=== PATIENT | male | born 1940 | race Caucasian/White ===

== ENCOUNTER 2016-04-06 07:37 | Emergency (ER) | payer BC ==
[~2016-04-06] VITALS: Ht 165.1 cm; Wt 74.6 kg
[~2016-04-06 07:37] MED LIST: [UNRECOGNIZED DRUG - CODE] PO
[2016-04-06 07:40] VITALS: TEMP 36.8
[2016-04-06] MEDS ORDERED: SODIUM CHLORIDE 0.9% 1000ML 1,000 ML IV STA (07:42)
[2016-04-06 07:50] VITALS: O2SAT 97
--- NOTE | 2016-04-06 07:54 | DIAGNOSTIC IMAGING REPORT ---
CHEST ONE VIEW PORTABLE CLINICAL HISTORY: Cough. Flu-like symptoms. COMPARISON STUDY: Chest radiograph October 05, 2014. FINDINGS: Bilateral shoulder arthroplasties and lumbar spine fusion hardware are partially imaged. No pneumothorax or pleural effusion is present. There is no evidence of pulmonary edema. Cardiomediastinal silhouette is stable. IMPRESSION: No acute cardiopulmonary findings. Electronically signed by: Augustine Anne M.D. 04/06/2016 7:52 AM Dictated Date/Time: 04/06/2016 7:50 AM
[2016-04-06 07:57] LABS: BASO % 0.1 %; BASO ABS # 0.01 K/uL (0-0.2); COMPLETE YES; EOS % 1.1 %; HEMATOCRIT 42.5 % (42-52); IG% 0.1 %; MEAN CELL VOLUME 87.1 fL (80-100); MEAN CORPUSCULAR HEMOGLOBIN 31.4 pg (25-34); MEAN PLATELET VOLUME 9.1 fL (7.4-10.4); MONO % 11.5 %; NEUT % 73.2 %; PLATELET COUNT 178 K/uL (130-400); RED BLOOD COUNT 4.88 M/uL (4.7-6.1); WHITE BLOOD COUNT 7.13 K/uL (4.8-10.8)
--- NOTE | 2016-04-06 08:03 | EMERGENCY ROOM VISIT NOTE ---
History Report prepared by Pauly: Rossi Saleh Under the Supervision of: Dr. Costa Sharma M.D. First contact with patient: 07:39 Chief Complaint: FALL Stated Complaint: FALL History of Present Illness The patient is a 75 year old male who presents to the Emergency Room via ALS with complaints of persistent neck pain secondary to fall occurring around 5 am this morning. When he went to the kitchen after waking up this morning, he lost consciousness and hit his head. He is unsure about how long he lost consciousness for. He took NyQuil and half of Vicodin before going to sleep last night. He normally takes Vicodin but has not taken NyQuil in the past few years. He has been having cold-like symptoms for the past few days. He currently complains of neck pain and upper back pain. He currently rates a pain intensity of 5/10. He has a history of chronic back pain which is currently worse than normal. The patient denies chest pain, shortness of breath, urinary symptoms, or any other complaints Source of History: patient Onset: around 5 am this morning Position: neck Symptom Intensity: 5/10 Timing: other (persistent) Associated Symptoms: + LOC, + back pain, No SOB, No chest pain, No urinary symptoms Review of Systems See HPI for pertinent positives & negatives. A total of 10 systems reviewed and were otherwise negative. Past Medical & Surgical Medical Problems: (1) BPH (benign prostatic hyperplasia) (2) Chronic back pain (3) HTN (hypertension) (4) Influenza A (5) Syncope Surgical Problems: (1) H/O shoulder replacement (2) Previous back surgery Family History No significant family history Social History Smoking Status: Never Smoker Drug Use: none Marital Status: Housing Status: lives with family Occupation Status: retired Current/Historical Medications Scheduled Aspirin (Aspirin Ec), 81 MG PO QAM Atorvastatin (Lipitor), 20 MG PO HS Calcium Carbonate-Vitamin D (Calcium 600 + D), 1 TAB PO QAM Coenzyme Q10 (Ubidecarenone) (Co Q-10), 1 CAP PO QAM Finasteride (Proscar), 5 MG PO QAM Gabapentin (Neurontin), 300 MG PO BID Hydrochlorothiazide (Hydrochlorothiazide), 25 MG PO DAILY Losartan Potassium (Cozaar), 100 MG PO QAM Metoprolol Succ (Toprol Xl) (Toprol-Xl), 25 MG PO DAILY Multiple Vitamin (Multivitamin), 1 TAB PO QAM Jenners-3 Fatty Acids (Fish Oil), 1 CAP PO QAM Omeprazole (Prilosec), 20 MG PO QAM Oseltamivir Phosphate (Tamiflu), 1 CAP PO BID Scheduled PRN Hydrocodone/Acetaminophen 5MG/325MG (Pyote 5MG/325MG), 1 TABLET PO Q4 PRN for Pain Allergies Coded Allergies: Doxazosin (Verified Allergy, Mild, 04/06/16) Oxaprozin (Verified Allergy, Unknown, 04/06/16) Terazosin (Verified Adverse Reaction, Mild, nervousness, 04/06/16) Physical Exam Vital Signs Date Time Temp Pulse Resp B/P Pulse Ox O2 Delivery O2 Flow Rate FiO2 04/06/16 13:47 70 18 124/76 96 Room Air 04/06/16 12:03 71 18 137/87 95 Room Air 04/06/16 11:05 93 Room Air 04/06/16 10:35 72 18 109/68 93 Room Air 04/06/16 09:52 74 20 132/76 93 Room Air 04/06/16 08:59 71 04/06/16 08:34 75 22 156/85 94 Room Air 04/06/16 07:50 97 Room Air 04/06/16 07:47 96 Room Air 04/06/16 07:47 96 Room Air 04/06/16 07:40 36.8 72 18 126/83 96 Room Air Physical Exam GENERAL: Patient is a healthy-appearing well-nourished HEAD: Normocephalic atraumatic EYES: Ocular movements intact pupils equal and react to light OROPHARYNX mucous membranes are moist no exudates present no erythema or edema present NECK: Supple no nuchal rigidity. Cervical collar in place. CHEST: Good equal expansion LUNGS: Clear and equal to auscultation CARDIAC: Normal S1 and S2 ABDOMEN: Soft nontender no guarding BACK: Tender to C3 region. EXTREMITIES: No pain upon palpation normal muscle strength in all groups no clubbing cyanosis or edema NEURO: Patient is following commands is answering questions appropriately. Alert and oriented x3 Cranial Nerves 2-12 grossly intact Medical Decision & Procedures ER Provider Diagnostic Interpretation: X-ray results as stated below per my interpretation and radiologist interpretation. CT results as stated below per my review and radiologist interpretation: CT OF THE CERVICAL SPINE CLINICAL HISTORY: Neck pain status post trauma COMPARISON STUDY: No previous studies for comparison. CT DOSE: 3195.89 mGy.cm TECHNIQUE: CT scan of the cervical spine was performed from the skull base to the thoracic inlet. Images are reviewed in the axial, sagittal, and coronal planes. IV contrast was not administered for this examination. FINDINGS: The visualized portions of the lung apices reveal no evidence of pneumothorax. The prevertebral soft tissues are normal. No fractures or traumatic subluxations are visualized. There is a small triangular bone fragment at the level of the tip of the odontoid. This is likely chronic. There are advanced multilevel degenerative changes. The bones are osteopenic. There are scattered lytic foci, the most prominent of which measures 6 mm and is located at the C2 level of the right of midline. IMPRESSION: 1. No evidence of acute fracture or traumatic subluxation 2. Moderately advanced multilevel degenerative changes 3. 2.5 mm of anterior subluxation of C4 on C5, likely degenerative 4. Scattered nonspecific lytic foci. Electronically signed by: Lcai Chandra M.D. 04/06/2016 8:32 AM Dictated Date/Time: 04/06/2016 8:27 AM CHEST ONE VIEW PORTABLE CLINICAL HISTORY: Cough. Flu-like symptoms. COMPARISON STUDY: Chest radiograph October 05, 2014. FINDINGS: Bilateral shoulder arthroplasties and lumbar spine fusion hardware are partially imaged. No pneumothorax or pleural effusion is present. There is no evidence of pulmonary edema. Cardiomediastinal silhouette is stable. IMPRESSION: No acute cardiopulmonary findings. Electronically signed by: Augustine Anne M.D. 04/06/2016 7:52 AM Dictated Date/Time: 04/06/2016 7:[address] OF THE HEAD WITHOUT CONTRAST CLINICAL HISTORY: Syncopal episode with fall. COMPARISON STUDY: Head CT October 05, 2014. TECHNIQUE: Helical axial images of the head were obtained without IV contrast. Automated exposure control was utilized for the study. FINDINGS: No acute intracranial hemorrhage, midline shift or mass effect is present. Ventricular system is stable. The basilar cisterns are patent. There are no extra-axial collections. Mild white matter hypodensity suggests small vessel disease. There are no findings to suggest acute dural sinus thrombosis or acute territorial infarct. There is no calvarial fracture. There is mild mucosal thickening of the ethmoid sinuses. IMPRESSION: 1. No acute intracranial findings. 2. No calvarial fracture. Electronically signed by: Augustine Anne M.D. 04/06/2016 8:30 AM Dictated Date/Time: 04/06/2016 8:[address] LUMBAR SPINE WITHOUT CLINICAL HISTORY: Back pain following fall. TECHNIQUE: Axial images lumbar spine were obtained without IV contrast. Sagittal and coronal reconstructions were viewed. COMPARISON STUDY: Lumbar spine radiograph July 06, 2010. FINDINGS: For purposes of numbering on this exam, the L5-S1 disc space is assigned to axial image 339 of 495. There is mild retrolisthesis of L3 on L4 and mild anterolisthesis of L4 and L5. There are bilateral pedicle screws at the L1, L2 and L3 levels. There is a discectomy with interbody spacer placement the L3-L4 and L5-S1 levels. An erosive appearance at the L3-L4 level with mild loss of height of the inferior endplate of L3 and moderate loss of height of the superior endplate of L4 is chronic. This was shown on prior radiographs. There is no acute fracture. The central canal and neural foramen are suboptimally assessed by CT. Paravertebral soft tissues are unremarkable. A 2.1 cm low-attenuation left adrenal nodule is unchanged and likely reflects an adenoma. There is a suspected left renal cyst. IMPRESSION: 1. No acute lumbar spine fracture or subluxation. 2. Multilevel discectomy and fusion within the lumbosacral spine line, as described above. An erosive appearance centered at the L3-L4 disc space is chronic. Electronically signed by: Augustine Anne M.D. 04/06/2016 8:41 AM Dictated Date/Time: 04/06/2016 8:[address] THOR[address]IC SPINE WITHOUT CT DOSE: CLINICAL HISTORY: Thoracic spine pain status post trauma TECHNIQUE: Helical images were acquired in the transverse plane. Sagittal and coronal reformatted images were acquired COMPARISON STUDY: None. FINDINGS: No paraspinal hematoma is visualized. No pleural effusions are visualized. There are dependent atelectatic changes within the lungs. There is interstitial thickening. No pneumothorax is visualized. There are postsurgical changes within the lumbar spine. There are multilevel degenerative changes present. No acute fractures or traumatic subluxations are visualized. There is endplate irregularity at the T6-7 and T7-T8 levels, likely discogenic degenerative basis. IMPRESSION: No acute fractures or subluxations identified. Electronically signed by: Laci Chandra M.D. 04/06/2016 8:35 AM Dictated Date/Time: 04/06/2016 8:32 AM Laboratory Results 04/06/16 07:45 Red Blood Count 4.88, Mean Corpuscular Volume 87.1, Mean Corpuscular Hemoglobin 31.4, Mean Corpuscular Hemoglobin Concent 36.0, Mean Platelet Volume 9.1, Neutrophils (%) (Auto) 73.2, Lymphocytes (%) (Auto) 14.0, Monocytes (%) (Auto) 11.5, Eosinophils (%) (Auto) 1.1, Basophils (%) (Auto) 0.1, Neutrophils # (Auto ) 5.21, Lymphocytes # (Auto) 1.00, Monocytes # (Auto) 0.82, Eosinophils # (Auto ) 0.08, Basophils # (Auto) 0.01 04/06/16 07:45 Test 04/06/16 06:45 04/06/16 07:45 04/06/16 07:49 04/06/16 07:50 Urine Color DK YELLOW Urine Appearance CLEAR (CLEAR) Urine pH 5.0 (4.5-7.5) Urine Specific [place] 1.026 (1.000-1.030) Urine Protein NEG (NEG) Urine Glucose (UA) NEG (NEG) Urine Ketones NEG (NEG) Urine Occult Blood NEG (NEG) Urine Nitrite NEG (NEG) Urine Bilirubin NEG (NEG) Urine Urobilinogen NEG (NEG) Urine Leukocyte Esterase NEG (NEG) White Blood Count 7.13 K/uL (4.8-10.8) Red Blood Count 4.88 M/uL (4.7-6.1) Hemoglobin 15.3 g/dL (14.0-18.0) Hematocrit 42.5 % (42-52) Mean Corpuscular Volume 87.1 fL (80-100) Mean Corpuscular Hemoglobin 31.4 pg (25-34) Mean Corpuscular Hemoglobin Concent 36.0 g/dl (32-36) Platelet Count 178 K/uL (130-400) Mean Platelet Volume 9.1 fL (7.4-10.4) Neutrophils (%) (Auto) 73.2 % Lymphocytes (%) (Auto) 14.0 % Monocytes (%) (Auto) 11.5 % Eosinophils (%) (Auto) 1.1 % Basophils (%) (Auto) 0.1 % Neutrophils # (Auto) 5.21 K/uL (1.4-6.5) Lymphocytes # (Auto) 1.00 K/uL (1.2-3.4) Monocytes # (Auto) 0.82 K/uL (0.11-0.59) Eosinophils # (Auto) 0.08 K/uL (0-0.5) Basophils # (Auto) 0.01 K/uL (0-0.2) RDW Standard Deviation 41.4 fL (36.4-46.3) RDW Coefficient of Variation 13.0 % (11.5-14.5) Immature Granulocyte % (Auto) 0.1 % Immature Granulocyte # (Auto) 0.01 K/uL (0.00-0.02) Anion Gap 10.0 mmol/L (3-11) Est Creatinine Clear Calc Drug Dose 40.2 ml/min Estimated GFR () 52.0 Estimated GFR (Non- 44.9 BUN/Creatinine Ratio 13.5 (10-20) Calcium Level 8.6 mg/dl (8.5-10.1) Total Bilirubin 0.6 mg/dl (0.2-1) Direct Bilirubin 0.1 mg/dl (0-0.2) Aspartate Amino Transf (AST/SGOT) 41 U/L (15-37) Alanine Aminotransferase (ALT/SGPT) 43 U/L (12-78) Alkaline Phosphatase 104 U/L (45-117) Total Protein 6.4 gm/dl (6.4-8.2) Albumin 3.3 gm/dl (3.4-5.0) Influenza Type A (RT-PCR) POS for Influ A (NEG) Influenza Type B (RT-PCR) Neg for Influ B (NEG) Bedside Glucose 75 mg/dl (70-99) Labs reviewed by ED physician. Medications Administered Medications (Trade) Dose Ordered Sig/Avery Route Start Time Stop Time Status Last Admin Dose Admin Sodium Chloride (Nss 1000ml) 1,000 ml @ 999 mls/hr Q1H1M STAT IV 04/06/16 07:42 04/06/16 08:42 DC 04/06/16 07:53 999 MLS/HR Hydromorphone HCl (Dilaudid Inj) 1 mg NOW STAT IV 04/06/16 08:40 04/06/16 08:42 DC 04/06/16 08:44 1 MG Ondansetron HCl (Zofran Inj) 4 mg NOW STAT IV 04/06/16 08:40 04/06/16 08:42 DC 04/06/16 08:44 4 MG Oseltamivir Phosphate (Tamiflu Cap) 75 mg NOW STAT PO 04/06/16 10:05 04/06/16 10:06 DC 04/06/16 10:33 75 MG ECG Indication: syncope Rate (beats per minute): 69 Rhythm: normal sinus Findings: no acute ischemic change, no ectopy ED Course 0739: Past medical records reviewed. The patient was evaluated in room . A complete history and physical examination was performed. 0742: Sodium Chloride 1000 ml @ 999 mls/hr IV 0840: Zofran Inj 4 mg IV, Dilaudid Inj 1 mg IV 1005: Tamiflu Cap 75 mg PO 1013: He had a near syncopal event in the Emergency Room when he tried performing an ambulatory trial. Upon reexamination the patient is resting comfortably. I discussed results and treatment plan with the patient. He verbalizes agreement and understanding. 1015: [facility] The patient will be evaluated for further management. Medical Decision Differential diagnosis: Etiologies such as viral syndrome, otitis, pharyngitis, pneumonia, influenza, meningitis, urinary tract infection, sepsis, bacteremia, as well as others were entertained. This is a 75-year-old male who presents emergency Department with a fall and what appears to be a vasovagal episode at home. He arrives complaining of neck pain as well as lower back pain. The patient has had cough and cold symptoms for the past day. His influenza swab is positive however the CAT scan of his head neck and spine are normal. While the patient was waiting for the doctor in emergency department he did have a vasovagal episode. Based on the fact that the patient has had 2 vasovagal episodes today I did discuss the case with the hospitalist service who agreed to admit the patient. Patient and family were in agreement with the treatment plan. Consults Time Called: 1014 Consulting Physician: [facility] Returned Call: [address] [facility] Impression Primary Impression: Influenza Additional Impression: Multiple falls Scribe Attestation The scribe's documentation has been prepared under my direction and personally reviewed by me in its entirety. I confirm that the note above accurately reflects all work, treatment, procedures, and medical decision making performed by me. Departure Information Dispostion Being Evaluated By Hospitalist Prescriptions Oseltamivir Phosphate (TAMIFLU) 30 Mg Cap 1 CAP PO BID for 5 Days, #10 CAP Prov: Costa Alcaraz MD 04/06/16 Referrals Griffin Meraz M.D. (PCP) Patient Instructions [facility] Problem Qualifiers
[2016-04-06 08:23] LABS: BUN/CREATININE RATIO 13.5 (10-20); CALCIUM 8.6 mg/dl (8.5-10.1); CREATININE 1.5 mg/dl (0.60-1.40); POTASSIUM 3.8 mmol/L (3.5-5.1)
--- NOTE | 2016-04-06 08:32 | DIAGNOSTIC IMAGING REPORT ---
CT OF THE HEAD WITHOUT CONTRAST CLINICAL HISTORY: Syncopal episode with fall. COMPARISON STUDY: Head CT October 05, 2014. TECHNIQUE: Helical axial images of the head were obtained without IV contrast. Automated exposure control was utilized for the study. FINDINGS: No acute intracranial hemorrhage, midline shift or mass effect is present. Ventricular system is stable. The basilar cisterns are patent. There are no extra-axial collections. Mild white matter hypodensity suggests small vessel disease. There are no findings to suggest acute dural sinus thrombosis or acute territorial infarct. There is no calvarial fracture. There is mild mucosal thickening of the ethmoid sinuses. IMPRESSION: 1. No acute intracranial findings. 2. No calvarial fracture. Electronically signed by: Augustine Anne M.D. 04/06/2016 8:30 AM Dictated Date/Time: 04/06/2016 8:28 AM
--- NOTE | 2016-04-06 08:33 | DIAGNOSTIC IMAGING REPORT ---
CT OF THE CERVICAL SPINE CLINICAL HISTORY: Neck pain status post trauma COMPARISON STUDY: No previous studies for comparison. CT DOSE: 3195.89 mGy.cm TECHNIQUE: CT scan of the cervical spine was performed from the skull base to the thoracic inlet. Images are reviewed in the axial, sagittal, and coronal planes. IV contrast was not administered for this examination. FINDINGS: The visualized portions of the lung apices reveal no evidence of pneumothorax. The prevertebral soft tissues are normal. No fractures or traumatic subluxations are visualized. There is a small triangular bone fragment at the level of the tip of the odontoid. This is likely chronic. There are advanced multilevel degenerative changes. The bones are osteopenic. There are scattered lytic foci, the most prominent of which measures 6 mm and is located at the C2 level of the right of midline. IMPRESSION: 1. No evidence of acute fracture or traumatic subluxation 2. Moderately advanced multilevel degenerative changes 3. 2.5 mm of anterior subluxation of C4 on C5, likely degenerative 4. Scattered nonspecific lytic foci. Electronically signed by: Laci Chandra M.D. 04/06/2016 8:32 AM Dictated Date/Time: 04/06/2016 8:27 AM
--- NOTE | 2016-04-06 08:37 | DIAGNOSTIC IMAGING REPORT ---
CT THORACIC SPINE WITHOUT CT DOSE: CLINICAL HISTORY: Thoracic spine pain status post trauma TECHNIQUE: Helical images were acquired in the transverse plane. Sagittal and coronal reformatted images were acquired COMPARISON STUDY: None. FINDINGS: No paraspinal hematoma is visualized. No pleural effusions are visualized. There are dependent atelectatic changes within the lungs. There is interstitial thickening. No pneumothorax is visualized. There are postsurgical changes within the lumbar spine. There are multilevel degenerative changes present. No acute fractures or traumatic subluxations are visualized. There is endplate irregularity at the T6-7 and T7-T8 levels, likely discogenic degenerative basis. IMPRESSION: No acute fractures or subluxations identified. Electronically signed by: Laci Chandra M.D. 04/06/2016 8:35 AM Dictated Date/Time: 04/06/2016 8:32 AM
[2016-04-06] MEDS ORDERED: HYDROmorphone INJ 1 MG/ML SYR IV STA (08:40)
[2016-04-06] MEDS ORDERED: ONDANSETRON INJ 2 MG/ML 2 ML VIAL IV STA (08:40)
--- NOTE | 2016-04-06 08:43 | DIAGNOSTIC IMAGING REPORT ---
CT LUMBAR SPINE WITHOUT CLINICAL HISTORY: Back pain following fall. TECHNIQUE: Axial images lumbar spine were obtained without IV contrast. Sagittal and coronal reconstructions were viewed. COMPARISON STUDY: Lumbar spine radiograph July 06, 2010. FINDINGS: For purposes of numbering on this exam, the L5-S1 disc space is assigned to axial image 339 of 495. There is mild retrolisthesis of L3 on L4 and mild anterolisthesis of L4 and L5. There are bilateral pedicle screws at the L1, L2 and L3 levels. There is a discectomy with interbody spacer placement the L3-L4 and L5-S1 levels. An erosive appearance at the L3-L4 level with mild loss of height of the inferior endplate of L3 and moderate loss of height of the superior endplate of L4 is chronic. This was shown on prior radiographs. There is no acute fracture. The central canal and neural foramen are suboptimally assessed by CT. Paravertebral soft tissues are unremarkable. A 2.1 cm low-attenuation left adrenal nodule is unchanged and likely reflects an adenoma. There is a suspected left renal cyst. IMPRESSION: 1. No acute lumbar spine fracture or subluxation. 2. Multilevel discectomy and fusion within the lumbosacral spine line, as described above. An erosive appearance centered at the L3-L4 disc space is chronic. Electronically signed by: Augustine Anne M.D. 04/06/2016 8:41 AM Dictated Date/Time: 04/06/2016 8:32 AM
[2016-04-06 09:59] LABS: INFLUENZA A PCR POS for Influ A (NEG); INFLUENZA B PCR Neg for Influ B (NEG)
[2016-04-06] MEDS ORDERED: OSELTAMIVIR PHOSPHATE 75 MG CAP PO STA (10:05)
[2016-04-06 10:22] LABS: URINE APPEARANCE CLEAR (CLEAR); URINE BILIRUBIN NEG (NEG); URINE COLOR DK YELLOW; URINE NITRITE NEG (NEG); URINE SPECIFIC GRAVITY 1.026 (1.000-1.030); UROBILINOGEN NEG (NEG)
[2016-04-06 10:24] LABS: MANUAL MICROSCOPIC REQUIRED? NO; REVIEW REQ? NO
[2016-04-06 11:05] VITALS: O2SAT 93; Ht 165.1 cm; Wt 74.6 kg
[2016-04-06] MEDS ORDERED: SODIUM CHLORIDE 0.9% 1000ML 1,000 ML IV SCH (12:02)
[2016-04-06] MEDS ORDERED: ACETAMINOPHEN 325 MG TAB PO PRN (12:15)
[2016-04-06] MEDS ORDERED: ONDANSETRON INJ 2 MG/ML 2 ML VIAL IV PRN (12:15)
[2016-04-06] MEDS ORDERED: POLYETHYLENE (MIRALAX) 17 GM PACK PO PRN (12:15)
[2016-04-06] MEDS ORDERED: HYDROCODONE/ACETAMOPHEN 5/325MG TAB PO PRN (12:15)
--- NOTE | 2016-04-06 13:08 | HISTORY & PHYSICAL EXAMINATION ---
DATE OF ADMISSION: 04/06/2016 CHIEF COMPLAINT: Syncope. HISTORY OF PRESENT ILLNESS: Mr. Wiggins is a 75-year-old gentleman with a history of hypertension, dyslipidemia and chronic back pain related to arthritis with multiple previous spinal fusions. He is presenting to the Emergency Department after having a syncopal episode this morning. He tells me over the past couple days he felt that he thought he was getting as cold. He had somewhat of a sore throat really just was not feeling himself. He said he was sneezing a lot. Denies any rhinorrhea, denies any cough or shortness of breath. Denies any chest pain, abdominal pain, nausea, vomiting or diarrhea. Denies any dysuria, hematuria or increased urinary frequency. Denies any swollen or painful joints and he denies any rash. His initial workup in the Emergency Department included a CT scan of the head, cervical spine, lumbar spine and thoracic spine. His CT of the head showed chronic small vessel ischemic changes, but otherwise no acute findings. His CT of the cervical spine showed advanced multilevel degenerative changes with osteopenic bones and some scattered lytic foci that the radiologist is reading as nonspecific. Also reading a 2.5 mm inferior subluxation of C4 over C5 which she says is likely degenerative. A CT of the thoracic spine is read as showing no acute fractures or subluxations. His CT of the lumbar spine shows no acute fracture or subluxation. Note is made of multilevel discectomy and fusion consistent with his history of previous fusions. He also had a chest x-ray which shows no acute cardiopulmonary process. His initial set of labs include chemistries showing a sodium of 144, potassium 3.8, chloride 105, bicarbonate 29, BUN is 20, creatinine is 1.5. He does have a history of CKD 3 and this is approximately his baseline creatinine. Glucose was 88, calcium 8.6, AST 41, ALT 43, bilirubin 0.6, alkaline phosphatase 104, albumin was a little bit low at 3.3, protein 6.4. His CBC showed a white blood cell count of 7100 with a normal differential. Hemoglobin was 15.3, hematocrit 42.5 and platelets 178,000. Urinalysis showed dark yellow urine, had a high specific gravity of 1.026, but was otherwise unremarkable. PCR for influenza A was positive. At this point, the patient was started on IV fluid hydration as well as Tamiflu and at this point is being admitted for further workup and management. ALLERGIES: 1. DOXAZOSIN. 2. OXAPROZIN. 3. TERAZOSIN. PAST MEDICAL HISTORY: 1. Hypertension related to chronic kidney disease. 2. Chronic kidney disease 3. 3. 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 4. BPH. 5. Dyslipidemia. HOME MEDICATIONS: Include: 1. [place] 5/325, which he says he takes 1 tab p.o. usually only once a day in the evening. 2. Aspirin 81 mg p.o. daily. 3. Atorvastatin 20 mg p.o. at bedtime. 4. Calcium with vitamin D. 5. Coenzyme Q10. 6. Finasteride 5 mg p.o. daily. 7. Gabapentin 300 mg p.o., says he takes either once or twice a day. 8. Hydrochlorothiazide 25 mg p.o. daily. 9. Losartan 100 mg p.o. daily. 10. Toprol-XL 25 mg p.o. daily. 11. Multivitamin. 12. [place] 3 fatty acid capsules. 13. Omeprazole 20 mg p.o. daily. FAMILY HISTORY: Positive for premature coronary artery disease. His father of an NC at age 48. Multiple other family members on his father's side with CAD. His mother's side of the family he mentions is very healthy and multiple family members lived well into their 90s and even 100s. SOCIAL HISTORY: The patient lives at home with his . He is completely independent. 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 He is a lifelong nonsmoker and does not abuse alcohol or illicit drugs. REVIEW OF SYSTEMS: A 14 system review was conducted and was found to be completely negative except as otherwise indicated above in the history of present illness. PHYSICAL EXAMINATION: VITAL SIGNS: Currently show pulse 70, respiratory rate 18, oxygen saturation 95% on room air, blood pressure 137/87. GENERAL: The patient is awake, alert and oriented. He is in no acute distress. HEAD, EYES, EARS, NOSE, AND THROAT: The sclerae are nonicteric. The mucous membranes are tacky. NECK: The trachea is midline. There is no JVD. RESPIRATORY: The lungs are grossly clear with fair air entry bilaterally. He is not in any respiratory distress. CARDIOVASCULAR EXAMINATION: S1 and S2 heard with a regular rate and rhythm. There is no murmur, rub, or gallop. ABDOMEN: Soft, nontender, nondistended. Bowel sounds are present. EXTREMITIES: Warm and well perfused without edema. SKIN: warm and dry. There is no cyanosis or rash. MUSCULOSKELETAL: There is no chest wall tenderness. There are no obvious joint effusions or joint tenderness. He does have mild pain on active range of motion of the cervical as well as lumbar spine which he says is chronic. NEUROLOGIC: The patient is awake and alert. There are no obvious focal deficit. Gait was not assessed. PSYCHIATRIC: The patient is calm and cooperative. He exhibits a normal mood and affect. DIAGNOSTIC INVESTIGATIONS: Labs and imaging were reviewed as outlined above in the history of present illness. In addition, an EKG was performed which shows sinus rhythm with a rate of 70 beats per minute. There is some flattening of the T-waves in lead 3, otherwise there are no ST segment or T-wave changes suggestive of acute ischemia. He has tiny Q-waves in III and aVF which are not present on an EKG from September 2014, but appear to be chronic. ASSESSMENT AND PLAN: 1. Syncope, likely related either to taking pain medication along with the antihistamine in [place], could also be related to hypovolemia. At this point, we will keep him on a heart monitor to screen for arrhythmia. Will gently rehydrate the patient. Will check orthostatics. 2. Influenza A infection. The patient has already been started on Tamiflu, which will be continued for a total of 5 days. Will decrease the dose to 30 mg b.i.d. based on his decreased creatinine clearance. 3. Hypertension. This is optimally controlled on his current home antihypertensive regimen. I will be holding hydrochlorothiazide while we rehydrate him. This will be restarted at discharge. For the time being we will continue losartan and the metoprolol. 4. Benign prostatic hypertrophy. He reports that he is voiding without difficulty. We will continue him on his usual finasteride. 5. Dyslipidemia. We will continue the patient on Lipitor. 6. Chronic back pain. We will continue his home [place] while he is here. 7. Deep venous thrombosis prophylaxis with SCDs. 8. Disposition: Admit to the general medical surgical floor. Total time spent preparing this history and physical is [address] [facility]
[2016-04-06] MEDS ORDERED: OSEL30CA PO (13:13)
--- NOTE | 2016-04-06 13:20 | Discharge Instructions ---
Discharge Instructions Admission Reason for Admission: FALL Discharge Discharge Diagnosis / Problem: Syncope, Influenza A infection Discharge Goals Goal(s): Improve function, Improve disease control Activity Recommendations Activity Limitations: resume your previous activity . Instructions / Follow-Up Instructions / Follow-Up Make appointment to be seen by PCP within next 1 week. Current Hospital Diet Patient's current hospital diet: AHA Diet (Heart Healthy) Discharge Diet Recommended Diet: AHA Diet (Heart Healthy) Pending Studies Studies pending at discharge: yes List of pending studies: Urine culture Laboratory Results Last 24 Hours Test 04/06/16 06:45 04/06/16 07:45 04/06/16 07:49 04/06/16 07:50 Urine Color DK YELLOW Urine Appearance CLEAR Urine pH 5.0 Urine Specific [place] 1.026 Urine Protein NEG Urine Glucose (UA) NEG Urine Ketones NEG Urine Occult Blood NEG Urine Nitrite NEG Urine Bilirubin NEG Urine Urobilinogen NEG Urine Leukocyte Esterase NEG White Blood Count 7.13 K/uL Red Blood Count 4.88 M/uL Hemoglobin 15.3 g/dL Hematocrit 42.5 % Mean Corpuscular Volume 87.1 fL Mean Corpuscular Hemoglobin 31.4 pg Mean Corpuscular Hemoglobin Concent 36.0 g/dl Platelet Count 178 K/uL Mean Platelet Volume 9.1 fL Neutrophils (%) (Auto) 73.2 % Lymphocytes (%) (Auto) 14.0 % Monocytes (%) (Auto) 11.5 % Eosinophils (%) (Auto) 1.1 % Basophils (%) (Auto) 0.1 % Neutrophils # (Auto) 5.21 K/uL Lymphocytes # (Auto) 1.00 K/uL Monocytes # (Auto) 0.82 K/uL Eosinophils # (Auto) 0.08 K/uL Basophils # (Auto) 0.01 K/uL RDW Standard Deviation 41.4 fL RDW Coefficient of Variation 13.0 % Immature Granulocyte % (Auto) 0.1 % Immature Granulocyte # (Auto) 0.01 K/uL Sodium Level 144 mmol/L Potassium Level 3.8 mmol/L Chloride Level 105 mmol/L Carbon Dioxide Level 29 mmol/L Anion Gap 10.0 mmol/L Blood Urea Nitrogen 20 mg/dl Creatinine 1.50 mg/dl Est Creatinine Clear Calc Drug Dose 40.2 ml/min Estimated GFR () 52.0 Estimated GFR (Non- 44.9 BUN/Creatinine Ratio 13.5 Random Glucose 88 mg/dl Calcium Level 8.6 mg/dl Total Bilirubin 0.6 mg/dl Direct Bilirubin 0.1 mg/dl Aspartate Amino Transf (AST/SGOT) 41 U/L Alanine Aminotransferase (ALT/SGPT) 43 U/L Alkaline Phosphatase 104 U/L Total Protein 6.4 gm/dl Albumin 3.3 gm/dl Influenza Type A (RT-PCR) POS for Influ A Influenza Type B (RT-PCR) Neg for Influ B Bedside Glucose 75 mg/dl Medical Emergencies . Who to Call and When: Medical Emergencies: If at any time you feel your situation is an emergency, please call 911 immediately. . Non-Emergent Contact Non-Emergency issues call your: Primary Care Provider Call Non-Emergent contact if: you have a fever, you have any medication questions . Past History Medical & Surgical History: (1) Syncope (2) Influenza A (3) HTN (hypertension) (4) BPH (benign prostatic hyperplasia) (5) Chronic back pain . "Provider Documentation" section prepared by Costa Alcaraz. VTE Core Measure Inpt VTE Proph given/why not?: SCD's
[2016-04-06 13:47] VITALS: BP 124/76; PULSE 70; O2SAT 96
--- NOTE | 2016-04-06 14:51 | Discharge Summary ---
Discharge Summary Admission Date: Apr 06, 2016 Discharge Date: Apr 06, 2016 Discharge Disposition: Home Principal Diagnosis: Influenza A infection Problems/Secondary Diagnoses: Syncope Immunizations: Have You Had Influenza Vaccine: Unknown History of Tetanus Vaccine?: Unknown History of Pneumococcal: Unknown History of Hepatitis B Vaccine: Unknown Medication Reconciliation New Medications: Oseltamivir Phosphate (Tamiflu) 30 Mg Cap 1 CAP PO BID for 5 Days, #10 CAP Continued Medications: Aspirin (Aspirin Ec) 81 Mg Tab 81 MG PO QAM Atorvastatin (Lipitor) 20 Mg Tab 20 MG PO HS, TAB Calcium Carbonate-Vitamin D (Calcium 600 + D) 1 Tab Tab 1 TAB PO QAM Coenzyme Q10 (Ubidecarenone) (Co Q-10) 400 Mg Cap 1 CAP PO QAM Finasteride (Proscar) 5 Mg Tab 5 MG PO QAM, TAB Gabapentin (Neurontin) 300 Mg Cap 300 MG PO BID, CAP Hydrochlorothiazide (Hydrochlorothiazide) 25 Mg Tab 25 MG PO DAILY Hydrocodone/Acetaminophen 5MG/325MG ([place] 5MG/325MG) Tab 1 TABLET PO Q4 PRN for Pain, TAB PRN PAIN Losartan Potassium (Cozaar) 100 Mg Tab 100 MG PO QAM, TAB Metoprolol Succ (Toprol Xl) (Toprol-Xl) 25 Mg Tabcr 25 MG PO DAILY, #30 TAB Multiple Vitamin (Multivitamin) 1 Tab Tab 1 TAB PO QAM for 90 Days, #90 TAB 3 Refills [place]-3 Fatty Acids (Fish Oil) 1 Cap Cap 1 CAP PO QAM Omeprazole (Prilosec) 20 Mg Capcr 20 MG PO QAM, CAP Discharge Exam PHYSICAL EXAMINATION: VITAL SIGNS: Currently show pulse 70, respiratory rate 18, oxygen saturation 95% on room air, blood pressure 137/87. GENERAL: The patient is awake, alert and oriented. He is in no acute distress. HEAD, EYES, EARS, NOSE, AND THROAT: The sclerae are nonicteric. The mucous membranes are tacky. NECK: The trachea is midline. There is no JVD. RESPIRATORY: The lungs are grossly clear with fair air entry bilaterally. He is not in any respiratory distress. CARDIOVASCULAR EXAMINATION: S1 and S2 heard with a regular rate and rhythm. There is no murmur, rub, or gallop. ABDOMEN: Soft, nontender, nondistended. Bowel sounds are present. EXTREMITIES: Warm and well perfused without edema. SKIN: warm and dry. There is no cyanosis or rash. MUSCULOSKELETAL: There is no chest wall tenderness. There are no obvious joint effusions or joint tenderness. He does have mild pain on active range of motion of the cervical as well as lumbar spine which he says is chronic. NEUROLOGIC: The patient is awake and alert. There are no obvious focal deficit. Gait was not assessed. PSYCHIATRIC: The patient is calm and cooperative. He exhibits a normal mood and affect. Hospital Course Mr. Wiggins presented to the ED after having a syncopal episode at home. He had been complaining of viral upper respiratory tract infection symptoms for a few days preceeding the syncopal event. He reports taking NyQuil in addition to his [place] the previous night. He reports waking up early in the morning to use the bathroom and having a syncopal episode on his return to the bedroom. His initial work up was significant for positivity for influenza A. His chemistries showed a creatinine elevated at 1.5, though this appears to be similar to previous values in our records. CXR, CT head, CT C/T/LS spine showed no acute findings. EKG did not appear to show any acute abnormality. At this point, he was started on Tamiflu, given IV fluids, and was recommended admission for work up of his syncope. I discussed with him that his symptoms could possibly be due to cardiac arrhythmia, but he declines admission at this time. He was, therefore, discharged home from the ED in stable condition. I asked him to follow up with his PCP within a week. He was also given a script for a 5 day course of renally-dosed Tamiflu. Total Time Spent: Greater than 30 minutes This includes examination of the patient, discharge planning, medication reconciliation, and communication with other providers. Discharge Instructions Please refer to the electronic Patient Visit Report (Discharge Instructions) for additional information. Follow-Up Follow up with PCP within one week. Additional Copies To Griffin Meraz M.D.
[2016-04-06] MEDS ORDERED: IV FLUIDS COMPLETED PRN (15:30)
[2016-04-06] MEDS ORDERED: OSELTAMIVIR PHOSPHATE 75 MG CAP PO SCH (21:00)
[2016-04-06] MEDS ORDERED: ATORVASTATIN 20 MG TAB PO SCH (21:00)
[2016-04-06] MEDS ORDERED: GABAPENTIN 300 MG CAP PO SCH (21:00)
[2016-04-07] MEDS ORDERED: MULTIVITAMIN TAB PO SCH (09:00)
[2016-04-07] MEDS ORDERED: FINASTERIDE 5 MG TAB PO SCH (09:00)
[2016-04-07] MEDS ORDERED: ASPIRIN 81 MG ECTAB PO SCH (09:00)
[2016-04-07] MEDS ORDERED: METOPROLOL SUCC 25MG EXT REL TAB PO SCH (09:00)
[2016-04-07] MEDS ORDERED: PANTOprazole SOD 40 MG TAB PO SCH (09:00)
[2016-04-07] MEDS ORDERED: LOSARTAN POTASSIUM 50 MG TAB PO SCH (09:00)
[2016-04-07] MEDS ORDERED: NON-FORMULARY MEDICATION (Coenzyme Q10 (Ubidecarenone) (Co Q-10) 1 CAP) PO SCH (09:00)
[2016-04-07] MEDS ORDERED: CALCIUM 600MG + VIT D 400 IU TAB PO SCH (09:00)
[2016-04-07] MEDS ORDERED: OMEGA-3 (PURIFIED FISH OIL) 1 GM CAP PO SCH (09:00)
[2016-04-15] MEDS ORDERED: HYDR25TA5 PO (08:51)
[2016-04-15] MEDS ORDERED: METO25TA3 PO (08:51)
[2016-04-15] MEDS ORDERED: OMEP20CA59 PO (13:51)
[2016-04-15] MEDS ORDERED: OMEG7.5C PO (13:51)
[2016-04-15] MEDS ORDERED: ASPI81TA28 PO (13:51)
[2016-04-15] MEDS ORDERED: LOSA100T65 PO (13:51)
[2016-04-15] MEDS ORDERED: ATOR-22 PO (13:51)
[2016-04-15] MEDS ORDERED: FINA5TAB4 PO (13:51)
[2016-04-15] MEDS ORDERED: GABA300C19 PO (13:51)
[2016-04-15] MEDS ORDERED: COEN1CAP40 PO (13:51)
[2016-04-15] MEDS ORDERED: HYDR-5688 PO (13:51)
[2016-04-15] MEDS ORDERED: CALC-20 PO (13:51)
[2016-04-15] MEDS ORDERED: MULTTAB58 PO (13:51)
== END 2016-04-06 14:00 | disposition home or self-care (01) ==
LOC: EDBD 07:37 → C.EDA 07:38 → CANBEDREQ 14:07
DX: J09.X2 Influenza due to identified novel influenza A virus with other respiratory manifestations (principal); R55 Syncope and collapse; N18.3 Chronic kidney disease, stage 3 (moderate); I12.9 Hypertensive chronic kidney disease with stage 1 through stage 4 chronic kidney disease, or unspecified chronic kidney disease; E78.5 Hyperlipidemia, unspecified; N40.0 Benign prostatic hyperplasia without lower urinary tract symptoms; Z79.82 Long term (current) use of aspirin; Z96.619 Presence of unspecified artificial shoulder joint; Z82.49 Family history of ischemic heart disease and other diseases of the circulatory system

== ENCOUNTER 2016-04-15 20:02 | Emergency (ER) | payer BC ==
[~2016-04-15] VITALS: Ht 167.6 cm; Wt 72.9 kg
[~2016-04-15 20:02] MED LIST changes: -ALPR-385 PO; -DXM4 PO; -FLX10 PO
[2016-04-15 20:06] VITALS: TEMP 36.7; Ht 167.6 cm; Wt 72.9 kg
[2016-04-15] MEDS ORDERED: OXYCODONE HCL IR 5 MG TAB (IMMEDIATE RELEASE) PO STA (20:29)
--- NOTE | 2016-04-15 21:03 | DIAGNOSTIC IMAGING REPORT ---
RIGHT SHOULDER MIN 2 VIEWS ROUTINE CLINICAL HISTORY: Right shoulder pain status post trauma COMPARISON: Earlier in the day DISCUSSION: There are postsurgical changes of a total right shoulder arthroplasty. There is a small amount of cement material at the inferior aspect of the joint space. This remains unchanged from a chest x-ray dated 04/06/2016. Narrowing of the clavicular humeral prosthetic distance raise the possibility chronic rotator cuff injury. No acute fractures or dislocations are visualized. IMPRESSION: Postoperative changes similar to the prior study. No acute fractures are visualized. Electronically signed by: Laci Chandra M.D. 04/15/2016 9:02 PM Dictated Date/Time: 04/15/2016 8:58 PM
--- NOTE | 2016-04-15 21:06 | DIAGNOSTIC IMAGING REPORT ---
RIGHT SCAPULA CLINICAL HISTORY: Right scapular pain status post trauma COMPARISON: Right shoulder dated 04/15/2016 DISCUSSION: There are postsurgical changes of a right shoulder arthroplasty. Remodeling of the scapular glenoid is likely chronic. Cement is visualized in the inferior aspect of the joint, unchanged the prior study. No acute fractures are visualized. Small bony densities adjacent to the inferior aspect of the scapular glenoid are likely chronic. IMPRESSION: Postsurgical changes. No acute fractures are identified. Electronically signed by: Laci Chandra M.D. 04/15/2016 9:05 PM Dictated Date/Time: 04/15/2016 9:02 PM
[2016-04-15] MEDS ORDERED: MoRPHine SULFATE 10 MG/ML CARP/VIAL IM STA (21:19)
[2016-04-15] MEDS ORDERED: KETOROLAC TROMETHAMINE 60 MG/2 ML VIAL IM STA (21:19)
[2016-04-15] MEDS ORDERED: ONDANSETRON 4MG OD TAB PO ONE (21:30)
[2016-04-15 22:14] VITALS: BP 116/86; PULSE 73; O2SAT 93
--- NOTE | 2016-04-15 22:27 | EMERGENCY ROOM VISIT NOTE ---
History First contact with patient: 20:10 Chief Complaint: SHOULDER PAIN Stated Complaint: PAIN IN RIGHT SHOULDER AND NECK History of Present Illness The patient is a 75 year old male who presents to the Emergency Room with complaints of persistent right shoulder pain. The patient states that he was seen here in the emergency room on April 06 after he fell directly onto his back. He had multiple CAT scans performed at that time. He was admitted to the hospital. The patient was then discharged home since that time he has had persistent pain in the right shoulder for which she has been taking Vicodin. He went to his family doctor today due to the persistent pain and they did an x- ray of his right shoulder but he does not have the results. The patient had a shoulder replacement done [address] Arceo. The family doctor thought that he should go back to see Dr. Arceo. He has not made that appointment as of now. The patient denies any pain radiating down his arm. The patient denies any numbness and tingling. The patient states that he took 2 Vicodin without any relief of the pain. That is why he came to the emergency room. Review of Systems 6 system review was performed and was negative unless stated otherwise in history of present illness. Past Medical/Surgical History Medical Problems: (1) BPH (benign prostatic hyperplasia) (2) Chronic back pain (3) HTN (hypertension) (4) Influenza A (5) Syncope Surgical Problems: (1) H/O shoulder replacement (2) Previous back surgery Family History No significant family history Social History Smoking Status: Never Smoker Drug Use: none Marital Status: Housing Status: lives with family Occupation Status: retired Current/Historical Medications Scheduled Aspirin (Aspirin Ec), 81 MG PO QAM Atorvastatin (Lipitor), 20 MG PO HS Calcium Carbonate-Vitamin D (Calcium 600 + D), 1 TAB PO QAM Coenzyme Q10 (Ubidecarenone) (Co Q-10), 1 CAP PO QAM Finasteride (Proscar), 5 MG PO QAM Gabapentin (Neurontin), 300 MG PO BID Hydrochlorothiazide (Hydrochlorothiazide), 25 MG PO DAILY Losartan Potassium (Cozaar), 100 MG PO QAM Metoprolol Succ (Toprol Xl) (Toprol-Xl), 25 MG PO DAILY Multiple Vitamin (Multivitamin), 1 TAB PO QAM [place]-3 Fatty Acids (Fish Oil), 1 CAP PO QAM Omeprazole (Prilosec), 20 MG PO QAM Scheduled PRN Hydrocodone/Acetaminophen 5MG/325MG ([place] 5MG/325MG), 1 TABLET PO Q4 PRN for Pain Allergies Coded Allergies: Doxazosin (Verified Allergy, Mild, 04/06/16) Oxaprozin (Verified Allergy, Unknown, 04/06/16) Terazosin (Verified Adverse Reaction, Mild, nervousness, 04/06/16) Physical Exam Vital Signs Date Time Temp Pulse Resp B/P Pulse Ox O2 Delivery O2 Flow Rate FiO2 04/15/16 22:14 73 18 116/86 93 Room Air 04/15/16 20:06 36.7 99 16 150/102 95 Room Air Physical Exam GENERAL: 75-year-old white male appears uncomfortable secondary to pain. MENTAL Status: Alert and oriented 3. NECK: Supple, no lymphadenopathy noted. No carotid bruits noted. LUNGS: Clear auscultation without wheezes rales or rhonchi. CARDIAC: Regular rate and rhythm without murmur. Pulses is full and equal throughout. RIGHT SHOULDER: No gross bony deformity noted. The patient is nontender to palpation over the humeral head. He has slight tenderness palpation over the posterior aspect of the shoulder. Oil Agent strength is 5 out of 5 as compared to the left. RIGHT SCAPULA: No gross bony deformity noted. The patient is tender to palpation over both the medial and lateral borders. Medical Decision & Procedures ER Provider Diagnostic Interpretation: RIGHT SCAPULA CLINICAL HISTORY: Right scapular pain status post trauma COMPARISON: Right shoulder dated 04/15/2016 DISCUSSION: There are postsurgical changes of a right shoulder arthroplasty. Remodeling of the scapular glenoid is likely chronic. Cement is visualized in the inferior aspect of the joint, unchanged the prior study. No acute fractures are visualized. Small bony densities adjacent to the inferior aspect of the scapular glenoid are likely chronic. IMPRESSION: Postsurgical changes. No acute fractures are identified. Electronically signed by: Laci Chandra M.D. 04/15/2016 9:05 PM RIGHT SHOULDER MIN 2 VIEWS ROUTINE CLINICAL HISTORY: Right shoulder pain status post trauma COMPARISON: Earlier in the day DISCUSSION: There are postsurgical changes of a total right shoulder arthroplasty. There is a small amount of cement material at the inferior aspect of the joint space. This remains unchanged from a chest x-ray dated 04/06/2016. Narrowing of the clavicular humeral prosthetic distance raise the possibility chronic rotator cuff injury. No acute fractures or dislocations are visualized. IMPRESSION: Postoperative changes similar to the prior study. No acute fractures are visualized. Electronically signed by: Laci Chandra M.D. 04/15/2016 9:02 PM Medications Administered Medications (Trade) Dose Ordered Sig/Avery Route Start Time Stop Time Status Last Admin Dose Admin Oxycodone HCl (Roxicodone Immediate Rel Tab) 10 mg NOW STAT PO 04/15/16 20:29 04/15/16 20:31 DC 04/15/16 20:36 10 MG Morphine Sulfate (MoRPHine SULFATE INJ) 8 mg NOW STAT IM 04/15/16 21:19 04/15/16 21:21 DC 04/15/16 21:38 8 MG Ondansetron HCl (Zofran Odt) 4 mg ONE ONCE PO 04/15/16 21:30 04/15/16 21:31 DC 04/15/16 21:37 4 MG Ketorolac Tromethamine (Toradol Inj) 60 mg NOW STAT IM 04/15/16 21:19 04/15/16 21:21 DC 04/15/16 21:37 60 MG ED Course The patient was evaluated. The patient was given OxyIR 10 mg by mouth for pain. X-ray of the right shoulder and right scapula were ordered and interpreted by the radiologist and myself as above without any acute findings. The patient was informed of the findings. The patient was reevaluated and was still in significant pain. Therefore the patient was given Toradol 60 mg IM and morphine 6 mg IM. He was given Zofran 4 mg ODT for associated nausea. The patient was reevaluated and stated her pain was now tolerable. The patient was given an OxyIR home pack to take as directed. The patient was discharged home in stable condition with his family members. Medical Decision Differential diagnosis include hardware disruption of the right shoulder, scapular bursitis, calcific tendinitis, tendinitis, fracture Impression Primary Impression: Shoulder pain, right Departure Information Dispostion Home / Self-Care Condition GOOD Referrals Griffin Meraz M.D. (PCP) Forms HOME CARE DOCUMENTATION FORM, IMPORTANT VISIT INFORMATION Patient Instructions My [facility] [employer] Additional Instructions This evening you may take Advil 600 mg every 6 hours with food for pain. Take OxyIR one to 2 tablets every 6 hour. Your next dose can be at 2:30 AM.. She could have another dose of the OxyIR around 8:00 AM. After that switch back to the Vicodin. Follow-up with Dr. Arceo as soon as possible. If your symptoms worsen, return to ER. Problem Qualifiers Primary Impression: Shoulder pain, right Chronicity: unspecified Qualified Codes: M25.511 - Pain in right shoulder
[2016-04-15] MEDS ORDERED: OXYCODONE IR HOME PACK PO ONE (22:30)
== END 2016-04-15 22:39 | disposition home or self-care (01) ==
LOC: C.EDB 20:03 → C.EDD 22:39
DX: M25.511 Pain in right shoulder (principal); W19.XXXD Unspecified fall, subsequent encounter; N40.0 Benign prostatic hyperplasia without lower urinary tract symptoms; Z96.611 Presence of right artificial shoulder joint; G89.29 Other chronic pain; I10 Essential (primary) hypertension; Z79.82 Long term (current) use of aspirin; Z79.899 Other long term (current) drug therapy

== ENCOUNTER → 2016-04-15 | Outpatient (CLI) | payer BC ==
[~2016-04-15] MED LIST changes: +ALPR-385 PO; +ASPI81TA28 PO; +ATOR-22 PO; +CALC-20 PO; +COEN1CAP40 PO; +DXM4 PO; +FINA5TAB4 PO; +FLX10 PO; +GABA300C19 PO; +HYDR-5688 PO; +HYDR25TA5 PO; +LOSA100T65 PO; +METO25TA3 PO; +MULTTAB58 PO; +OMEG7.5C PO; +OMEP20CA59 PO; -[UNRECOGNIZED DRUG - CODE] PO
--- NOTE | 2016-04-15 13:57 | DIAGNOSTIC IMAGING REPORT ---
RIGHT SHOULDER 3 VIEWS HISTORY: SHOULDER PAIN Right COMPARISON: None. FINDINGS: There is a right total shoulder arthroplasty. There is superior subluxation of the humeral prosthesis in relation to the glenoid. No fracture or dislocation. Remodeling of the glenoid is likely postoperative/chronic. Small amount of cement material within the inferior aspect of the joint space. No abnormal periprosthetic lucency. The right clavicle appears intact. IMPRESSION: 1. No acute fracture or dislocation within the right shoulder. 2. Right total shoulder arthroplasty. There is mild superior subluxation of the humeral prosthesis in relation to the glenoid. This suggests chronic rotator cuff injury. Electronically signed by: Mike Cortez M.D. 04/15/2016 1:56 PM Dictated Date/Time: 04/15/2016 1:54 PM
== END | disposition home or self-care (01) ==
LOC: C.RAD1850 13:25
PROVIDERS: ATTEND Family Medicine
DX: M25.519 Pain in unspecified shoulder (principal); Z96.611 Presence of right artificial shoulder joint

== ENCOUNTER 2016-07-25 12:32 | Observation (INO) | payer BC ==
[~2016-07-25] VITALS: Ht 165.1 cm; Wt 70.0 kg
[~2016-07-25 12:32] MED LIST changes: +GABA-1218 PO; -GABA300C19 PO
[2016-07-25] MEDS ORDERED: FLX10 PO (13:04)
[2016-07-25] MEDS ORDERED: ALPR-385 PO (13:04)
[2016-07-25] MEDS ORDERED: MoRPHine SULFATE 4 MG/ML 1 ML CARP\\VIAL IV STA (13:54)
[2016-07-25] MEDS ORDERED: ONDANSETRON INJ 2 MG/ML 2 ML VIAL IV STA (13:54)
[2016-07-25 14:21] LABS: BASO % 0.1 %; BASO ABS # 0.01 K/uL (0-0.2); COMPLETE YES; EOS % 0.7 %; HEMATOCRIT 41.6 % (42-52); IG% 0.1 %; LYMPH % 13.3 %; MEAN CELL VOLUME 89.8 fL (80-100); MEAN CORPUSCULAR HEMOGLOBIN 31.7 pg (25-34); MEAN CORPUSCULAR HGB CONC 35.3 g/dl (32-36); MEAN PLATELET VOLUME 9.5 fL (7.4-10.4); MONO % 9.7 %; NEUT % 76.1 %; PLATELET COUNT 170 K/uL (130-400); RED BLOOD COUNT 4.63 M/uL (4.7-6.1); WHITE BLOOD COUNT 8.99 K/uL (4.8-10.8)
[2016-07-25 14:35] LABS: PROTHROMBIN TIME (PATIENT) 10.7 SECONDS (9.0-12.0)
[2016-07-25 14:39] LABS: BUN/CREATININE RATIO 17.5 (10-20); CALCIUM 8.8 mg/dl (8.5-10.1); CREATININE 1.4 mg/dl (0.60-1.40); POTASSIUM 3.5 mmol/L (3.5-5.1)
--- NOTE | 2016-07-25 15:12 | DIAGNOSTIC IMAGING REPORT ---
CT LUMBAR SPINE WITHOUT CT DOSE: 568.98 mGy.cm CLINICAL HISTORY: Low back pain. Possible fracture. TECHNIQUE: Helical images were acquired in transverse plane. Reformatted sagittal and coronal images were reviewed. CONTRAST: No contrast was administered COMPARISON STUDY: 04/06/2016 FINDINGS: L1-2 level: There are bilateral L1 pedicle screws. There is marked disc space narrowing at the L1-2 level. There is no significant spinal or foraminal stenosis. L2-3 level: There are postsurgical changes of a discectomy and interbody fusion. There are L2 and L3 pedicle screws present. There are postlaminectomy changes. There is no significant spinal or foraminal stenosis. L3-4 level: There are postsurgical changes of an L3-4 discectomy. There is marked endplate erosive change. There is retrolisthesis of L3 and L4. There are L3 pedicle screws. There are post laminectomy changes. There is no spinal or foraminal stenosis L4-5 level: There is a grade 1 spondylolisthesis of L4 and L5. There are postlaminectomy changes. There is no significant spinal or foraminal stenosis L5-S1 level: There are postsurgical changes of a discectomy and interbody fusion. There is no significant spinal or foraminal stenosis. No acute fractures or traumatic subluxations are visualized. IMPRESSION: 1. No acute fracture or subluxation 2. Multilevel discectomy and fusion as described above. There are extensive chronic endplate erosive changes at the L3-4 level. 3. Stable retrolisthesis of L3 on L4 and stable mild anterolisthesis of L4 on L5 Electronically signed by: Laci Chandra M.D. 07/25/2016 3:10 PM Dictated Date/Time: 07/25/2016 3:05 PM
[2016-07-25] MEDS ORDERED: HYDROmorphone INJ 1 MG/ML SYR IV STA (15:29)
--- NOTE | 2016-07-25 16:31 | EMERGENCY ROOM VISIT NOTE ---
History Report prepared by Pauly: Jeremiah Wells Under the Supervision of: Dr. Palomo Gonzalez M.D. First contact with patient: 13:45 Chief Complaint: BACK PAIN Stated Complaint: SEVERE LOWER BACK PAIN History of Present Illness The patient is a 75 year old male who presents to the Emergency Room with complaints of worsening left lower back pain beginning two nights ago. He states that his pain radiates into his left leg down to his mid thigh. He describes the pain as "sharp". The patient is chronically on Vicodin for his pain. He has a history of chronic back pain, and three previous back surgeries. His surgeries have been with Dr. Salas of [facility]. The patient states that his pain began when he was laying in bed. He denies any known trauma recently. He denies any fevers, loss of continence, numbness, weakness, urinary symptoms, numbness in the genitals, chest pain, or SOB. Source of History: patient Onset: Two nights ago Position: back (left lower) Symptom Intensity: severe Quality: sharp Timing: worsening Modifying Factors (Worsening): movement Associated Symptoms: No SOB, No chest pain, No fevers, No numbness, No weakness Note: The patient denies loss of continence, and numbness in the genitals. Review of Systems See HPI for pertinent positives & negatives. A total of 10 systems reviewed and were otherwise negative. Past Medical & Surgical Medical Problems: (1) BPH (benign prostatic hyperplasia) (2) Chronic back pain (3) HTN (hypertension) (4) Influenza A (5) Syncope Surgical Problems: (1) H/O shoulder replacement (2) Previous back surgery Family History No significant family history Social History Smoking Status: Never Smoker Drug Use: none Marital Status: Housing Status: lives with family Occupation Status: retired Current/Historical Medications Scheduled Aspirin (Aspirin Ec), 81 MG PO QAM Atorvastatin (Lipitor), 20 MG PO HS Calcium Carbonate-Vitamin D (Calcium 600 + D), 1 TAB PO QAM Coenzyme Q10 (Ubidecarenone) (Co Q-10), 1 CAP PO QAM Finasteride (Proscar), 5 MG PO QAM Gabapentin (Neurontin), 300 MG PO BID Hydrochlorothiazide (Hydrochlorothiazide), 25 MG PO DAILY Losartan Potassium (Cozaar), 100 MG PO QAM Metoprolol Succ (Toprol Xl) (Toprol-Xl), 25 MG PO DAILY Multiple Vitamin (Multivitamin), 1 TAB PO QAM [place]-3 Fatty Acids (Fish Oil), 1 CAP PO QAM Omeprazole (Prilosec), 20 MG PO QAM Scheduled PRN Alprazolam (Xanax), 1 MG PO Q8 PRN for Anxiety Cyclobenzaprine HCl (Cyclobenzaprine HCl), 10 MG PO DAILY PRN for Muscle Spasms Hydrocodone/Acetaminophen 5MG/325MG ([place] 5MG/325MG), 1 TABLET PO Q4 PRN for Pain Allergies Coded Allergies: Doxazosin (Verified Allergy, Mild, 07/25/16) Oxaprozin (Verified Allergy, Unknown, 07/25/16) Terazosin (Verified Adverse Reaction, Mild, nervousness, 07/25/16) Physical Exam Vital Signs Date Time Temp Pulse Resp B/P Pulse Ox O2 Delivery O2 Flow Rate FiO2 07/25/16 17:45 74 18 119/67 96 Room Air 07/25/16 15:48 77 95 125/66 95 Room Air 07/25/16 14:21 76 16 109/66 97 Room Air 07/25/16 12:43 36.7 72 18 112/81 97 Physical Exam Constitutional: Vital signs reviewed. Eyes: Pupils are equal round reactive to light. Conjunctiva are noninjected. ENT: Pharynx is clear without erythema or exudate. Mucous membranes are moist. Neck supple without meningeal signs. Respiratory: Clear to auscultation bilaterally. Breath sounds are equal bilaterally. Cardiovascular: Regular rate and rhythm. No rubs or gallops. GI: Soft, nondistended and nontender. Bowel sounds are present. Musculoskeletal: No peripheral edema. No lower extremity tenderness. Integumentary: No cyanosis. Neurological: The patient is awake and alert. Normal motor in the distal lower extremities. Unable to assess proximally secondary to pain. Normal sensation throughout the lower extremities. Psychiatric: Normal affect. Medical Decision & Procedures ER Provider Diagnostic Interpretation: CT results as stated below per my review and radiologist interpretation. CT LUMBAR SPINE WITHOUT FINDINGS: L1-2 level: There are bilateral L1 pedicle screws. There is marked disc space narrowing at the L1-2 level. There is no significant spinal or foraminal stenosis. L2-3 level: There are postsurgical changes of a discectomy and interbody fusion. There are L2 and L3 pedicle screws present. There are postlaminectomy changes. There is no significant spinal or foraminal stenosis. L3-4 level: There are postsurgical changes of an L3-4 discectomy. There is marked endplate erosive change. There is retrolisthesis of L3 and L4. There are L3 pedicle screws. There are post laminectomy changes. There is no spinal or foraminal stenosis L4-5 level: There is a grade 1 spondylolisthesis of L4 and L5. There are postlaminectomy changes. There is no significant spinal or foraminal stenosis L5-S1 level: There are postsurgical changes of a discectomy and interbody fusion. There is no significant spinal or foraminal stenosis. No acute fractures or traumatic subluxations are visualized. IMPRESSION: 1. No acute fracture or subluxation 2. Multilevel discectomy and fusion as described above. There are extensive chronic endplate erosive changes at the L3-4 level. 3. Stable retrolisthesis of L3 on L4 and stable mild anterolisthesis of L4 on L5 Electronically signed by: Laci Chandra M.D. Laboratory Results 07/25/16 14:10 Red Blood Count 4.63, Mean Corpuscular Volume 89.8, Mean Corpuscular Hemoglobin 31.7, Mean Corpuscular Hemoglobin Concent 35.3, Mean Platelet Volume 9.5, Neutrophils (%) (Auto) 76.1, Lymphocytes (%) (Auto) 13.3, Monocytes (%) (Auto) 9.7, Eosinophils (%) (Auto) 0.7, Basophils (%) (Auto) 0.1, Neutrophils # (Auto) 6.84, Lymphocytes # (Auto) 1.20, Monocytes # (Auto) 0.87, Eosinophils # (Auto) 0.06, Basophils # (Auto) 0.01 07/25/16 14:10 Test 07/25/16 14:10 White Blood Count 8.99 K/uL (4.8-10.8) Red Blood Count 4.63 M/uL (4.7-6.1) Hemoglobin 14.7 g/dL (14.0-18.0) Hematocrit 41.6 % (42-52) Mean Corpuscular Volume 89.8 fL (80-100) Mean Corpuscular Hemoglobin 31.7 pg (25-34) Mean Corpuscular Hemoglobin Concent 35.3 g/dl (32-36) Platelet Count 170 K/uL (130-400) Mean Platelet Volume 9.5 fL (7.4-10.4) Neutrophils (%) (Auto) 76.1 % Lymphocytes (%) (Auto) 13.3 % Monocytes (%) (Auto) 9.7 % Eosinophils (%) (Auto) 0.7 % Basophils (%) (Auto) 0.1 % Neutrophils # (Auto) 6.84 K/uL (1.4-6.5) Lymphocytes # (Auto) 1.20 K/uL (1.2-3.4) Monocytes # (Auto) 0.87 K/uL (0.11-0.59) Eosinophils # (Auto) 0.06 K/uL (0-0.5) Basophils # (Auto) 0.01 K/uL (0-0.2) RDW Standard Deviation 42.0 fL (36.4-46.3) RDW Coefficient of Variation 12.9 % (11.5-14.5) Immature Granulocyte % (Auto) 0.1 % Immature Granulocyte # (Auto) 0.01 K/uL (0.00-0.02) Prothrombin Time 10.7 SECONDS (9.0-12.0) Prothromb Time International Ratio 1.0 (0.9-1.1) Activated Partial Thromboplast Time 27.0 SECONDS (21.0-31.0) Partial Thromboplastin Ratio 1.0 Anion Gap 6.0 mmol/L (3-11) Est Creatinine Clear Calc Drug Dose 39.7 ml/min Estimated GFR () 56.6 Estimated GFR (Non- 48.8 BUN/Creatinine Ratio 17.5 (10-20) Calcium Level 8.8 mg/dl (8.5-10.1) Laboratory results as reviewed by me. Medications Administered Medications (Trade) Dose Ordered Sig/Avery Route Start Time Stop Time Status Last Admin Dose Admin Morphine Sulfate (MoRPHine SULFATE INJ) 4 mg NOW STAT IV 07/25/16 13:54 07/25/16 13:56 DC 07/25/16 14:17 4 MG Ondansetron HCl (Zofran Inj) 4 mg NOW STAT IV 07/25/16 13:54 07/25/16 13:56 DC 07/25/16 14:16 4 MG Hydromorphone HCl (Dilaudid Inj) 0.5 mg NOW STAT IV 07/25/16 15:29 07/25/16 15:30 DC 07/25/16 15:45 0.5 MG ED Course 1349: The patient was evaluated in room B8. A complete history and physical exam was performed. 1354: Ordered Zofran Inj 4 mg IV, Morphine Sulfate 4 mg IV. 1526: I reassessed the patient. He is still experiencing significant pain. We discussed his test results. [facility] will be consulted. 1529: Ordered Dilaudid Inj 0.5 mg IV. 1702: [facility] did not accept the patient for transfer. 1717: I spoke with the patient regarding his case. He verbalized agreement of the treatment plan. The patient will be evaluated for further management. Medical Decision This is a 75-year-old male who presents with low back pain. Differential diagnosis includes compression fracture, pathologic fracture, degenerative disc disease, radiculopathy, strain. I did perform a limited focused review of portions of the patient's old chart on the electronic medical record. The patient had a lumbar CT in March which showed multi-level discectomy and fusion. I did evaluate the patient as noted above. The patient is presenting with worsening back pain over the past 2 days without any injury. He is neurologically intact. He does not have signs of cauda equina syndrome. IV access was established. I did treat the patient with IV morphine and Zofran. He had continued pain and was given Dilaudid IV. I did order and review the patient's blood work as noted in the electronic medical record. I did order a CT of the lumbar spine. I did review the images myself as well as the radiology report as described above. The patient has chronic changes without any new fractures or changes. The patient was informed of his test results. He has persistent pain and cannot move without having significant worsening of his pain. I therefore spoke to the caseworker who will attempt to get the patient into a rehabilitation hospital. I did discuss the case with Dr. Cardoso who agrees with disposition. I did order a PT OT evaluation. [facility] was unable to take the patient and so the patient will be hospitalized for further care. I did discuss case with the hospitalist and caseworker. Consults Time Called: 1622 Consulting Physician: Dr. Cardoso -Orthopedics Returned Call: 1624 I discussed the patient's case with Dr. Cardoso. He is agreeable with the patient going to [facility]. Additional Consults: Time Called: 1707 Consulted Physician: Dr. [place] [place]ed Call: 1717 Additional Comments: I spoke with Dr. Buchanan of [facility] [place]. We discussed the patient and his results. The patient will be further evaluated by [facility] [place]. Impression Primary Impression: Intractable back pain Additional Impression: Ambulatory dysfunction Scribe Attestation The scribe's documentation has been prepared under my direct and personally reviewed by me in its entirety. I confirm that the note above accurately reflects all work, treatment, procedures, and medical decision making performed by me. Departure Information Dispostion Being Evaluated By Hospitalist Griffin Cadena M.D. (PCP) Patient Instructions My [facility] Problem Qualifiers
[2016-07-25] MEDS ORDERED: ALPRAZOLAM 0.5 MG TAB PO PRN (18:30)
[2016-07-25] MEDS ORDERED: OXYCODONE/ACETAMINOPHEN 5-325 TAB PO PRN (18:30)
[2016-07-25] MEDS ORDERED: MAGNESIUM HYDROXIDE SUSP 30 ML UDC PO PRN (18:30)
[2016-07-25] MEDS ORDERED: ONDANSETRON INJ 2 MG/ML 2 ML VIAL IV PRN (18:30)
[2016-07-25] MEDS ORDERED: ACETAMINOPHEN 325 MG TAB PO PRN (18:30)
[2016-07-25] MEDS ORDERED: ALUMINUM/MAGNESIUM/SIMETH (MAALOX MAX) 30 ML UDC PO PRN (18:30)
[2016-07-25] MEDS ORDERED: CYCLOBENZAPRINE HCL 10 MG TAB PO PRN (18:30)
[2016-07-25] MEDS ORDERED: POLYETHYLENE (MIRALAX) 17 GM PACK PO PRN (18:30)
[2016-07-25 19:11] VITALS: Ht 165.1 cm; Wt 70.0 kg
[2016-07-25 19:13] VITALS: O2SAT 98
[2016-07-25 19:30] VITALS: BP 118/78; PULSE 71; TEMP 36.9; O2SAT 93
[2016-07-25] MEDS: MoRPHine SULFATE 4 MG/ML 1 ML CARP\\VIAL IV PRN (19:53)
[2016-07-25] MEDS ORDERED: DICLOFENAC SOD 1% GEL 100 GM TUBE EXT ONE (20:00)
[2016-07-25] MEDS ORDERED: DEXAMETHASONE 4 MG TAB PO ONE (20:00)
[2016-07-25] MEDS ORDERED: DICLOFENAC SOD 1% GEL 100 GM TUBE EXT SCH (21:00)
[2016-07-25] MEDS ORDERED: ATORVASTATIN 20 MG TAB PO SCH (21:00)
[2016-07-25] MEDS ORDERED: ENOXAPARIN 40 MG/0.4 ML SYR SQ SCH (21:00)
[2016-07-25] MEDS: GABAPENTIN 300 MG CAP PO SCH (21:43)
--- NOTE | 2016-07-25 21:51 | History and Physical ---
History & Physical Date & Time of Service: July 25, 2016 at 21:47 Chief Complaint: Intractable Low Back Pain Primary Care Physician: Griffin Meraz M.D. Past Medical/Surgical History Medical Problems: (1) HTN (hypertension) Status: Chronic Surgical Problems: (1) H/O shoulder replacement Status: Resolved (2) Previous back surgery Status: Resolved Family History No significant family history Social History Smoking Status: Never Smoker Drug Use: none Marital Status: Occupational Status: retired Immunizations History of Influenza Vaccine: Unknown History of Tetanus Vaccine?: Unknown History of Pneumococcal: Unknown History of Hepatitis B Vaccine: Unknown Multi-Drug Resistant Organisms History of MDRO: No Allergies Coded Allergies: Doxazosin (Verified Allergy, Mild, 07/25/16) Oxaprozin (Verified Allergy, Unknown, 07/25/16) Terazosin (Verified Adverse Reaction, Mild, nervousness, 07/25/16) Home Medications Scheduled Aspirin (Aspirin Ec), 81 MG PO QAM Atorvastatin (Lipitor), 20 MG PO HS Calcium Carbonate-Vitamin D (Calcium 600 + D), 1 TAB PO QAM Coenzyme Q10 (Ubidecarenone) (Co Q-10), 1 CAP PO QAM Finasteride (Proscar), 5 MG PO QAM Gabapentin (Neurontin), 300 MG PO BID Hydrochlorothiazide (Hydrochlorothiazide), 25 MG PO DAILY Losartan Potassium (Cozaar), 100 MG PO QAM Metoprolol Succ (Toprol Xl) (Toprol-Xl), 25 MG PO DAILY Multiple Vitamin (Multivitamin), 1 TAB PO QAM [place]-3 Fatty Acids (Fish Oil), 1 CAP PO QAM Omeprazole (Prilosec), 20 MG PO QAM Scheduled PRN Alprazolam (Xanax), 1 MG PO Q8 PRN for Anxiety Cyclobenzaprine HCl (Cyclobenzaprine HCl), 10 MG PO DAILY PRN for Muscle Spasms Hydrocodone/Acetaminophen 5MG/325MG ([place] 5MG/325MG), 1 TABLET PO Q4 PRN for Pain Physical Exam Vital Signs Date Time Temp Pulse Resp B/P Pulse Ox O2 Delivery O2 Flow Rate FiO2 07/25/16 19:13 78 18 127/68 98 07/25/16 19:11 Room Air 07/25/16 17:45 74 18 119/67 96 Room Air 07/25/16 15:48 77 95 125/66 95 Room Air 07/25/16 14:21 76 16 109/66 97 Room Air 07/25/16 12:43 36.7 72 18 112/81 97 Diagnostics Laboratory Results Results Past 24 Hours Test 07/25/16 14:10 Range/Units White Blood Count 8.99 4.8-10.8 K/uL Red Blood Count 4.63 4.7-6.1 M/uL Hemoglobin 14.7 14.0-18.0 g/dL Hematocrit 41.6 42-52 % Mean Corpuscular Volume 89.8 80-100 fL Mean Corpuscular Hemoglobin 31.7 25-34 pg Mean Corpuscular Hemoglobin Concent 35.3 32-36 g/dl Platelet Count 170 130-400 K/uL Mean Platelet Volume 9.5 7.4-10.4 fL Neutrophils (%) (Auto) 76.1 % Lymphocytes (%) (Auto) 13.3 % Monocytes (%) (Auto) 9.7 % Eosinophils (%) (Auto) 0.7 % Basophils (%) (Auto) 0.1 % Neutrophils # (Auto) 6.84 1.4-6.5 K/uL Lymphocytes # (Auto) 1.20 1.2-3.4 K/uL Monocytes # (Auto) 0.87 0.11-0.59 K/uL Eosinophils # (Auto) 0.06 0-0.5 K/uL Basophils # (Auto) 0.01 0-0.2 K/uL RDW Standard Deviation 42.0 36.4-46.3 fL RDW Coefficient of Variation 12.9 11.5-14.5 % Immature Granulocyte % (Auto) 0.1 % Immature Granulocyte # (Auto) 0.01 0.00-0.02 K/uL Prothrombin Time 10.7 9.0-12.0 SECONDS Prothromb Time International Ratio 1.0 0.9-1.1 Activated Partial Thromboplast Time 27.0 21.0-31.0 SECONDS Partial Thromboplastin Ratio 1.0 Sodium Level 145 136-145 mmol/L Potassium Level 3.5 3.5-5.1 mmol/L Chloride Level 106 98-107 mmol/L Carbon Dioxide Level 33 21-32 mmol/L Anion Gap 6.0 3-11 mmol/L Blood Urea Nitrogen 24 7-18 mg/dl Creatinine 1.40 0.60-1.40 mg/dl Est Creatinine Clear Calc Drug Dose 39.7 ml/min Estimated GFR () 56.6 Estimated GFR (Non- 48.8 BUN/Creatinine Ratio 17.5 10-20 Random Glucose 85 70-99 mg/dl Calcium Level 8.8 8.5-10.1 mg/dl Impression Assessment and Plan obs #[id number] Advanced Directives Existing Living Will: Yes Existing Power of Crop Grain Or Livestock Farmer: Yes VTE Prophylaxis VTE Risk Assessment Done? Y/N: Yes Risk Level: Moderate
[2016-07-25] MEDS ORDERED: IV FLUIDS COMPLETED PRN (22:30)
[2016-07-25 22:54] VITALS: BP 101/62; PULSE 67; TEMP 36.7; O2SAT 94
[2016-07-26] MEDS: MoRPHine SULFATE 4 MG/ML 1 ML CARP\\VIAL IV PRN (00:10)
--- NOTE | 2016-07-26 04:16 | HISTORY & PHYSICAL EXAMINATION ---
DATE OF ADMISSION: 07/25/2016 CHIEF COMPLAINT: Intractable back pain. HISTORY OF PRESENT ILLNESS: The patient is a very pleasant 75-year-old male who unfortunately has had a longstanding trouble with back pain. He has had multiple back surgeries. Generally, he was doing well until about a night or so ago though and he rolled over in bed and started to have a lot of pain in his back that also radiated down his thigh on the front on the left only. He tried managing at home. He went to a walk and they started him on muscle relaxants. Unfortunately, things continued to get worse, so he came here to the ER for further evaluation. He complains mostly of back pain that radiates to his left leg. It is severe enough that he really cannot walk, he cannot really manage at home and we were asked to see him for further evaluation and treatment. REVIEW OF SYSTEMS: Negative for any new trauma. Negative for any fevers, chills, or sweats. Negative for any saddle anesthesia, loss of control of bowel or bladder. REVIEW OF SYSTEMS: Otherwise negative, except for as above. PAST MEDICAL HISTORY: Includes chronic back pain with DJD, DDD and prior 3 times back surgeries; BPH; and hypertension. PAST SURGICAL HISTORY: Includes multiple prior back surgeries as well as a shoulder replacement. FAMILY HISTORY: Hypertension and MS. SOCIAL HISTORY: No tobacco or alcohol. He is , retired. Has a very supportive family. ALLERGIES: DOXAZOSIN, OXAPROZIN AND TERAZOSIN. MEDICATIONS: His current meds are alprazolam 1 mg q. 8 hours p.r.n., aspirin 81 mg daily, Lipitor 20 mg at bedtime, calcium plus D 1 tab daily, CoQ 10 daily, Flexeril 10 mg daily p.r.n. pain, Proscar 5 mg daily, gabapentin 300 mg b.i.d., hydrochlorothiazide 25 mg daily, [place] 5/325 q. 4 hours p.r.n., losartan 100 mg daily, and Toprol-XL 25 mg daily, multivitamin daily, omega 3 daily, and omeprazole 20 mg daily. PHYSICAL EXAMINATION: VITAL SIGNS: Temperature 36.7, pulse 72, respiratory rate 18, blood pressure 112/81 and 97% on room air. GENERAL: He is awake, alert, oriented x3, pleasant, appears in no acute distress, although he and especially the notes repeatedly that he is very stoic. HEENT: Normocephalic, atraumatic. Mucous membranes are moist. CARDIOVASCULAR: Regular without rubs, murmurs, or gallops. LUNGS: Clear to auscultation bilaterally. No rales, rhonchi, or wheezes. Good effort. ABDOMEN: Soft, nondistended, nontender, no masses or organomegaly. EXTREMITIES: Without cyanosis, clubbing or edema. No calf tenderness. SKIN: Shows no rashes, no pallor or icterus. MUSCULOSKELETAL AND NEUROLOGIC: He has low back paraspinal tenderness, probably on the left worse than the right, although everything down on his low back is very tender. He does not interestingly have any subjective change in sensory left or right to confrontational light touch, but he does definitely feel like he has got a kind of a tingling across the front of his left leg. Also interestingly, he has straight leg raise positive on the right rather than left despite the fact that the left is the side that he has paresthesias. No other neurologic deficits or musculoskeletal deformities. Cranial nerves II-XII are grossly intact. MENTAL STATE: Shows good recent and remote recall. Normal mood and affect. Good judgment and insight. LABS AND DIAGNOSTICS: CBC shows a white count of 8.99, hemoglobin 14.7, and platelets 170. Complete metabolic panel with sodium 145, potassium 3.5, chloride 106, CO2 33, BUN 24, creatinine 1.4, calcium 8.8, glucose 85. PT of 10.7, PTT of 27. Lumbar spine CT shows bilateral L1 pedicle screws, marked disk space narrowing at L1-L2, no significant foraminal or spinal stenosis. L2-3 showing post-laminectomy changes without significant stenosis. L3-4, marked endplate erosive changes and retrolisthesis of L3 and 4 with pedicle screws post-laminectomy changes. L4-5, similar to above. The overall impression is no acute fracture or dislocation, multilevel discectomy and fusion with extensive chronic endplate erosive changes at L3 and L4, stable retrolisthesis of L3 on L4 and mild anterolisthesis of L4 on L5. ASSESSMENT AND PLAN: 1. Severe back pain with lumbar radiculopathy. He seems to be showing about an L3 radicular pattern with no other worry signs or symptoms, certainly no signs of cord compromise, no signs of cauda equina, no signs of septic epidural abscess or arthritis or anything of that sort. We discussed options. At this point in time, we will start him on Decadron to try to improve nerve root irritation as well as physical therapy utilizing pain meds and pain control, and then working towards either home with outpatient therapy or rehab if needed. If he fails after a few days of steroids and shows no improvement or shows any worsening, then certainly can consult spine. He sees Dr. Christine and would much prefer to see him for considerations on possible injections. 2. Hypertension, continue his hydrochlorothiazide, losartan and metoprolol. 3. Deep venous thrombosis prophylaxis, Lovenox.
[2016-07-26 07:00] VITALS: BP 99/65; PULSE 75; TEMP 36.8; O2SAT 91
[2016-07-26] MEDS: GABAPENTIN 300 MG CAP PO SCH (08:42)
[2016-07-26] MEDS ORDERED: HYDROCHLOROTHIAZIDE 25 MG TAB PO SCH (09:00)
[2016-07-26] MEDS ORDERED: DICLOFENAC SOD 1% GEL 100 GM TUBE EXT SCH (09:00)
[2016-07-26] MEDS ORDERED: ASPIRIN 81 MG ECTAB PO SCH (09:00)
[2016-07-26] MEDS ORDERED: NON-FORMULARY MEDICATION (Coenzyme Q10 (Ubidecarenone) (Co Q-10) 1 CAP) PO SCH (09:00)
[2016-07-26] MEDS ORDERED: MULTIVITAMIN TAB PO SCH (09:00)
[2016-07-26] MEDS ORDERED: DEXAMETHASONE 4 MG TAB PO SCH (09:00)
[2016-07-26] MEDS ORDERED: OMEGA-3 (PURIFIED FISH OIL) 1 GM CAP PO SCH (09:00)
[2016-07-26] MEDS ORDERED: CALCIUM 600MG + VIT D 400 IU TAB PO SCH (09:00)
[2016-07-26] MEDS ORDERED: LOSARTAN POTASSIUM 50 MG TAB PO SCH (09:00)
[2016-07-26] MEDS ORDERED: METOPROLOL SUCC 25MG EXT REL TAB PO SCH (09:00)
[2016-07-26] MEDS ORDERED: PANTOprazole SOD 40 MG TAB PO SCH (09:00)
[2016-07-26] MEDS ORDERED: FINASTERIDE 5 MG TAB PO SCH (09:00)
[2016-07-26] MEDS ORDERED: DXM4 PO (11:39)
--- NOTE | 2016-07-26 11:41 | Discharge Instructions ---
Discharge Instructions Date of Service July 26, 2016. Admission Reason for Admission: Intractable Low Back Pain Discharge Discharge Diagnosis / Problem: Back pain Discharge Goals Goal(s): Decrease discomfort, Improve function Activity Recommendations Activity Limitations: per Instructions/Follow-up section Lifting Limitations: gradually increase as tolerated Exercise/Sports Limitations: until after follow-up appointment May Resume Sexual Activity: after follow-up appointment Shower/Bathe: no limitations Driving or Machine Use: After Ortho follow up . Current Hospital Diet Patient's current hospital diet: Regular Diet Discharge Diet Recommended Diet: AHA Diet (Heart Healthy) Pending Studies Studies pending at discharge: no Laboratory Results 07/25/16 14:10 Red Blood Count 4.63, Mean Corpuscular Volume 89.8, Mean Corpuscular Hemoglobin 31.7, Mean Corpuscular Hemoglobin Concent 35.3, Mean Platelet Volume 9.5, Neutrophils (%) (Auto) 76.1, Lymphocytes (%) (Auto) 13.3, Monocytes (%) (Auto) 9.7, Eosinophils (%) (Auto) 0.7, Basophils (%) (Auto) 0.1, Neutrophils # (Auto) 6.84, Lymphocytes # (Auto) 1.20, Monocytes # (Auto) 0.87, Eosinophils # (Auto) 0.06, Basophils # (Auto) 0.01 07/25/16 14:10 Test 07/25/16 14:10 White Blood Count 8.99 K/uL (4.8-10.8) Red Blood Count 4.63 M/uL (4.7-6.1) Hemoglobin 14.7 g/dL (14.0-18.0) Hematocrit 41.6 % (42-52) Mean Corpuscular Volume 89.8 fL (80-100) Mean Corpuscular Hemoglobin 31.7 pg (25-34) Mean Corpuscular Hemoglobin Concent 35.3 g/dl (32-36) Platelet Count 170 K/uL (130-400) Mean Platelet Volume 9.5 fL (7.4-10.4) Neutrophils (%) (Auto) 76.1 % Lymphocytes (%) (Auto) 13.3 % Monocytes (%) (Auto) 9.7 % Eosinophils (%) (Auto) 0.7 % Basophils (%) (Auto) 0.1 % Neutrophils # (Auto) 6.84 K/uL (1.4-6.5) Lymphocytes # (Auto) 1.20 K/uL (1.2-3.4) Monocytes # (Auto) 0.87 K/uL (0.11-0.59) Eosinophils # (Auto) 0.06 K/uL (0-0.5) Basophils # (Auto) 0.01 K/uL (0-0.2) RDW Standard Deviation 42.0 fL (36.4-46.3) RDW Coefficient of Variation 12.9 % (11.5-14.5) Immature Granulocyte % (Auto) 0.1 % Immature Granulocyte # (Auto) 0.01 K/uL (0.00-0.02) Prothrombin Time 10.7 SECONDS (9.0-12.0) Prothromb Time International Ratio 1.0 (0.9-1.1) Activated Partial Thromboplast Time 27.0 SECONDS (21.0-31.0) Partial Thromboplastin Ratio 1.0 Anion Gap 6.0 mmol/L (3-11) Est Creatinine Clear Calc Drug Dose 39.7 ml/min Estimated GFR () 56.6 Estimated GFR (Non- 48.8 BUN/Creatinine Ratio 17.5 (10-20) Calcium Level 8.8 mg/dl (8.5-10.1) Medical Emergencies . Who to Call and When: Medical Emergencies: If at any time you feel your situation is an emergency, please call 911 immediately. . Non-Emergent Contact Non-Emergency issues call your: Primary Care Provider Call Non-Emergent contact if: you have a fever . Past History Medical & Surgical History: (1) HTN (hypertension) (2) Intractable back pain (3) BPH (benign prostatic hyperplasia) . "Provider Documentation" section prepared by Kody Franklin. . VTE Core Measure Inpt VTE Proph given/why not?: SCD's
--- NOTE | 2016-07-26 11:43 | Discharge Summary ---
Discharge Summary Date of Service July 26, 2016. Discharge Summary Admission Date: July 25, 2016 at 18:28 Discharge Disposition: Home Principal Diagnosis: Back pain Immunizations: Have You Had Influenza Vaccine: Unknown History of Tetanus Vaccine?: Unknown History of Pneumococcal: Unknown History of Hepatitis B Vaccine: Unknown Procedures: [~ rep ct add3]] CT LUMBAR SPINE WITHOUT CT DOSE: 568.98 mGy.cm CLINICAL HISTORY: Low back pain. Possible fracture. TECHNIQUE: Helical images were acquired in transverse plane. Reformatted sagittal and coronal images were reviewed. CONTRAST: No contrast was administered COMPARISON STUDY: 04/06/2016 FINDINGS: L1-2 level: There are bilateral L1 pedicle screws. There is marked disc space narrowing at the L1-2 level. There is no significant spinal or foraminal stenosis. L2-3 level: There are postsurgical changes of a discectomy and interbody fusion. There are L2 and L3 pedicle screws present. There are postlaminectomy changes. There is no significant spinal or foraminal stenosis. L3-4 level: There are postsurgical changes of an L3-4 discectomy. There is marked endplate erosive change. There is retrolisthesis of L3 and L4. There are L3 pedicle screws. There are post laminectomy changes. There is no spinal or foraminal stenosis L4-5 level: There is a grade 1 spondylolisthesis of L4 and L5. There are postlaminectomy changes. There is no significant spinal or foraminal stenosis L5-S1 level: There are postsurgical changes of a discectomy and interbody fusion. There is no significant spinal or foraminal stenosis. No acute fractures or traumatic subluxations are visualized. IMPRESSION: 1. No acute fracture or subluxation 2. Multilevel discectomy and fusion as described above. There are extensive chronic endplate erosive changes at the L3-4 level. 3. Stable retrolisthesis of L3 on L4 and stable mild anterolisthesis of L4 on L5 Electronically signed by: Laci Chandra M.D. 07/25/2016 3:10 PM Dictated Date/Time: 07/25/2016 3:05 PM Medication Reconciliation New Medications: Dexamethasone (Dexamethasone) 4 Mg Tab 6 MG PO DAILY for 7 Days, #11 TAB Continued Medications: Alprazolam (Xanax) 1 Mg Tab 1 MG PO Q8 PRN for Anxiety, #30 Aspirin (Aspirin Ec) 81 Mg Tab 81 MG PO QAM Atorvastatin (Lipitor) 20 Mg Tab 20 MG PO HS, TAB Calcium Carbonate-Vitamin D (Calcium 600 + D) 1 Tab Tab 1 TAB PO QAM Coenzyme Q10 (Ubidecarenone) (Co Q-10) 400 Mg Cap 1 CAP PO QAM Cyclobenzaprine HCl (Cyclobenzaprine HCl) 10 Mg Tab 10 MG PO DAILY PRN for Muscle Spasms, #30 Finasteride (Proscar) 5 Mg Tab 5 MG PO QAM, TAB Gabapentin (Neurontin) 300 Mg Cap 300 MG PO BID, CAP Hydrochlorothiazide (Hydrochlorothiazide) 25 Mg Tab 25 MG PO DAILY Hydrocodone/Acetaminophen 5MG/325MG ([place] 5MG/325MG) Tab 1 TABLET PO Q4 PRN for Pain, TAB PRN PAIN Losartan Potassium (Cozaar) 100 Mg Tab 100 MG PO QAM, TAB Metoprolol Succ (Toprol Xl) (Toprol-Xl) 25 Mg Tabcr 25 MG PO DAILY, #30 TAB Multiple Vitamin (Multivitamin) 1 Tab Tab 1 TAB PO QAM for 90 Days, #90 TAB 3 Refills [place]-3 Fatty Acids (Fish Oil) 1 Cap Cap 1 CAP PO QAM Omeprazole (Prilosec) 20 Mg Capcr 20 MG PO QAM, CAP Discharge Exam Physical Exam: General Appearance: WD/WN, no apparent distress Eyes: normal inspection, PERRL, EOMI ENT: normal ENT inspection Neck: supple, no adenopathy, no JVD Respiratory/Chest: chest non-tender, normal breath sounds Cardiovascular: regular rate, rhythm, no edema Abdomen / GI: normal bowel sounds, non tender, soft Extremities: normal inspection Neurologic/Psychiatric: director of student services II-XII nml as tested, no motor/sensory deficits , alert, oriented x 3 Skin: normal color Hospital Course The patient is a very pleasant 75-year-old male who unfortunately has had a longstanding trouble with back pain. He has had multiple back surgeries. Generally, he was doing well until about a night or so ago though and he rolled over in bed and started to have a lot of pain in his back that also radiated down his thigh on the front on the left only. He tried managing at home. He went to a walk and they started him on muscle relaxants. Unfortunately, things continued to get worse, so he came here to the ER for further evaluation. He complains mostly of back pain that radiates to his left leg. It is severe enough that he really cannot walk, he cannot really manage at home and we were asked to see him for further evaluation and treatment. 1. Severe back pain with lumbar radiculopathy. He seems to be showing about an L3 radicular pattern with no other worry signs or symptoms, certainly no signs of cord compromise, no signs of cauda equina, no signs of septic epidural abscess or arthritis or anything of that sort. We discussed options. At this point in time, we will start him on Decadron to try to improve nerve root irritation as well as physical therapy utilizing pain meds and pain control, and then working towards either home with outpatient therapy or rehab if needed. If he fails after a few days of steroids and shows no improvement or shows any worsening, then certainly can consult spine. He sees Dr. Christine and would much prefer to see him for considerations on possible injections. Since patient symptoms improved on Decadron (oral), patient was discharged and recommended to follow up with Orthopedics as outpatient 2. Hypertension, continue his hydrochlorothiazide, losartan and metoprolol. 3. Deep venous thrombosis prophylaxis, Lovenox Total Time Spent: Greater than 30 minutes This includes examination of the patient, discharge planning, medication reconciliation, and communication with other providers. Discharge Instructions Please refer to the electronic Patient Visit Report (Discharge Instructions) for additional information.
[2016-07-26 12:09] VITALS: BP 99/65; PULSE 75; TEMP 36.8; O2SAT 91
--- NOTE | 2016-07-26 14:57 | ORTHOPEDIC CONSULTATION ---
DATE OF CONSULTATION: 07/26/2016 Unfortunately, the patient was discharged prior to my ability to evaluate the patient and render recommendation.
== END 2016-07-26 13:00 | disposition home or self-care (01) ==
LOC: ENRESERVTM → ENRESERVDT → C.EDB 12:33 → C.MSW 18:28
PROVIDERS: ADMIT Family Medicine; ATTEND Family Medicine
DX: M51.16 Intervertebral disc disorders with radiculopathy, lumbar region (principal); I10 Essential (primary) hypertension; N40.0 Benign prostatic hyperplasia without lower urinary tract symptoms; R26.9 Unspecified abnormalities of gait and mobility; Z96.619 Presence of unspecified artificial shoulder joint; Z79.82 Long term (current) use of aspirin; Z82.49 Family history of ischemic heart disease and other diseases of the circulatory system

== ENCOUNTER → 2017-01-26 | Outpatient (CLI) | payer BC ==
[~2017-01-26] MED LIST changes: +ALPR-385 PO; +DXM4 PO; +FLX10 PO
--- NOTE | 2017-01-26 14:17 | DIAGNOSTIC IMAGING REPORT ---
CAROTID DOPPLER NECK ART HISTORY: Mental status change CONFUSION,CHRONIC KIDNEY DISEASE COMPARISON: None. TECHNIQUE: Real-time, grayscale, and color Doppler sonography of the carotid arteries was performed. Imaging reviewed in the transverse and longitudinal planes. All measurements were calculated based on NASCET criteria. FINDINGS: Antegrade flow is seen in the bilateral vertebral arteries. The brachial pressures are hemodynamically similar. Mild plaque formation bilaterally The peak systolic velocity within the right ICA is 87. The right systolic ratio is 1.2. The peak systolic velocity within the left ICA is 70. The left systolic ratio is 1.1. IMPRESSION: Mild plaque formation bilaterally. No significant stenotic process. The above report was generated using voice recognition software. It may contain grammatical, syntax or spelling errors. Electronically signed by: Randy Godinez M.D. 01/26/2017 2:16 PM Dictated Date/Time: 01/26/2017 2:15 PM
--- NOTE | 2017-01-26 14:21 | DIAGNOSTIC IMAGING REPORT ---
RENAL ULTRASOUND HISTORY: Confusion, chronic KIDNEY DISEASE COMPARISON: None. FINDINGS: Right kidney: 9.2 cm. No hydronephrosis. Normal corticomedullary differentiation and cortical thickness for age. Left kidney: 9.6 cm. No hydronephrosis. Normal corticomedullary differentiation and cortical thickness for age. A 1.4 cm upper pole cyst. Bladder: No bladder wall thickening. The bilateral ureteral jets were identified. The prostate is mildly enlarged measuring 4.7 cm. IMPRESSION: 1. No hydronephrosis. 2. A 1.4 cm left renal cyst. 3. Mildly enlarged prostate. Electronically signed by: Mike Cortez M.D. 01/26/2017 2:20 PM Dictated Date/Time: 01/26/2017 2:17 PM
== END | disposition home or self-care (01) ==
LOC: C.ULTR 12:56
PROVIDERS: ATTEND Family Medicine
DX: N18.9 Chronic kidney disease, unspecified (principal); R41.0 Disorientation, unspecified; N28.1 Cyst of kidney, acquired

== ENCOUNTER → 2017-01-28 | Outpatient (CLI) | payer BC ==
--- NOTE | 2017-01-28 09:11 | DIAGNOSTIC IMAGING REPORT ---
HEAD WITHOUT CONTRAST (CT) CT DOSE: 537.48 mGy.cm HISTORY: Mental status change DISORIENTATION,TRANS ISCHEMIC ATTACKS TECHNIQUE: Multiaxial CT images of the head were performed without the use of intravenous contrast. A dose lowering technique was utilized adhering to the principles of ALARA. Comparison: 04/06/2016 Findings: The paranasal sinuses and mastoid air cells are clear. The calvarium and skull base are intact. The ventricles and sulci are within normal limits. There is no mass, hematoma, midline shift, or acute infarct. Impression: No acute intracranial abnormality. Minimal age-related change. The above report was generated using voice recognition software. It may contain grammatical, syntax or spelling errors. Electronically signed by: Randy Godinez M.D. 01/28/2017 9:10 AM Dictated Date/Time: 01/28/2017 9:07 AM
== END | disposition home or self-care (01) ==
LOC: C.CTS 08:58
PROVIDERS: ATTEND Family Medicine
DX: G45.9 Transient cerebral ischemic attack, unspecified (principal); R41.0 Disorientation, unspecified

== ENCOUNTER → 2017-02-03 | Outpatient (CLI) | payer BC ==
--- NOTE | 2017-02-03 16:48 | EEG Procedure Note ---
EEG Procedure Note Date of Service Feb 03, 2017. Start / End Times Start Time: 12:38 PM End Time: 1:19 PM Referring Physician Luna Novak History This is a 76-year-old male with confusional episodes. EEG for further evaluation of possible seizure etiology. Home Medication List Scheduled Aspirin (Aspirin Ec), 81 MG PO QAM Atorvastatin (Lipitor), 20 MG PO HS Calcium Carbonate-Vitamin D (Calcium 600 + D), 1 TAB PO QAM Coenzyme Q10 (Ubidecarenone) (Co Q-10), 1 CAP PO QAM Dexamethasone (Dexamethasone), 6 MG PO DAILY Finasteride (Proscar), 5 MG PO QAM Gabapentin (Neurontin), 300 MG PO BID Hydrochlorothiazide (Hydrochlorothiazide), 25 MG PO DAILY Losartan Potassium (Cozaar), 100 MG PO QAM Metoprolol Succ (Toprol Xl) (Toprol-Xl), 25 MG PO DAILY Multiple Vitamin (Multivitamin), 1 TAB PO QAM [place]-3 Fatty Acids (Fish Oil), 1 CAP PO QAM Omeprazole (Prilosec), 20 MG PO QAM Scheduled PRN Alprazolam (Xanax), 1 MG PO Q8 PRN for Anxiety Cyclobenzaprine HCl (Cyclobenzaprine HCl), 10 MG PO DAILY PRN for Muscle Spasms Hydrocodone/Acetaminophen 5MG/325MG ([place] 5MG/325MG), 1 TABLET PO Q4 PRN for Pain Description This is a 21 electrode EEG with a single channel dedicated to limited EKG. The electrodes were placed in accordance with the International 10-20 system. At the start of the recording the patient was in an awake state. Background was well organized and composed of symmetric mixed alpha and beta frequencies. There was a symmetric well-formed moderate amplitude 10 Hz posterior dominant rhythm that was reactive to eye opening and closure. Hyperventilation was not done. Intermittent photic stimulation at various frequencies produced no abnormalities. Drowsiness was indicated by loss of muscle artifact and slowing of the background rhythm. There was no sleep transients. Interpretation This is a normal awake and drowsy extended EEG. There was no electrographic seizures or epileptiform discharges. Clinical Correlation A normal EEG does not rule out epilepsy if there is a strong clinical suspicion.
== END | disposition home or self-care (01) ==
LOC: C.NEUR 12:20
PROVIDERS: ATTEND Psychiatry & Neurology Neurology
DX: F44.89 Other dissociative and conversion disorders (principal)

== ENCOUNTER → 2017-02-04 | Outpatient (CLI) | payer BC ==
--- NOTE | 2017-02-04 17:49 | DIAGNOSTIC IMAGING REPORT ---
MRI OF THE BRAIN WITHOUT CONTRAST CLINICAL HISTORY: Confusion. COMPARISON STUDY: MRI of the brain September 14, [address] January 28, 2017. TECHNIQUE: Utilizing a 1.5 Shakira magnet and dedicated coil, multiplanar, multiecho imaging of the brain was performed without IV contrast. FINDINGS: There are no areas of restricted diffusion. No acute intracranial hemorrhage, midline shift or mass effect is present. Ventricular system is normal for age. Basilar cisterns are patent. There are no extra axial collections. Flow-voids for the major intracranial vessels are present. No intracranial masses identified on this unenhanced exam. There are numerous white matter T2 hyperintense foci. Calvarial signal is normal. Orbits, sinuses and mastoid air cells are unremarkable on this examination. IMPRESSION: 1. No acute intracranial findings. 2. Moderate atrophy and white matter T2 hyperintense foci which likely reflect small vessel disease. Electronically signed by: Augustine Anne M.D. 02/04/2017 5:48 PM Dictated Date/Time: 02/04/2017 5:44 PM
== END | disposition home or self-care (01) ==
LOC: C.MRIBC 16:29
PROVIDERS: ATTEND Family Medicine
DX: R41.0 Disorientation, unspecified (principal); G31.9 Degenerative disease of nervous system, unspecified; R90.82 White matter disease, unspecified

== ENCOUNTER 2017-03-14 04:40 | Emergency (ER) | payer BC ==
[~2017-03-14] VITALS: Ht 165.1 cm; Wt 73.0 kg
[2017-03-14 04:44] VITALS: TEMP 36.8; Ht 165.1 cm; Wt 73.0 kg
--- NOTE | 2017-03-14 05:05 | EMERGENCY ROOM VISIT NOTE ---
History First contact with patient: 04:45 Chief Complaint: SYNCOPE (NEAR SYNCOPE) Stated Complaint: ABDOMINAL PAIN, SYNCOPE Nursing Triage Summary: Pt arrived via EMS from home. Pt was trying to go to the restroom when he felt lightheaded and "almost passed out while pushing". Pt had similar issues in the spring. Per EMS pt was diaphoretic upon arrival. Hx of sinus bradycardia. Hx of chronic constipation due to chronic opioid use. History of Present Illness The patient is a 76 year old male who presents to the Emergency Room for evaluation of syncope. Notes he was straining on toilet this morning when he had syncopal event. Admits he may not have passed out completely but he is unsure. Notes feeling lightheaded/foggy, weak and diaphoretic afterwards which gradually resolved. called 911 and he was brought in by EMS. Notes some mild posterior neck pain s/p fall and he thinks he hit his head. Denies cp, shob, nausea, vomiting, back pain, abdominal pain, nor other acute symptoms. Chronic constipation due to opioid use. Admits previous syncope/near-syncope of unknown origin. He notes chronic bradycardia and denies history of CAD. States feeling well otherwise recently. No new medications. Takes no blood thinners. No history of PE/Travel/Legswelling/RecentSurg. Review of Systems See HPI for pertinent positives & negatives. A total of 10 systems reviewed and were otherwise negative. Past Medical/Surgical History Medical Problems: (1) BPH (benign prostatic hyperplasia) (2) Chronic back pain (3) HTN (hypertension) (4) Influenza A (5) Syncope Surgical Problems: (1) H/O shoulder replacement (2) Previous back surgery Family History No significant family history Social History Smoking Status: Never Smoker Drug Use: none Marital Status: Housing Status: lives with family Occupation Status: retired Current/Historical Medications Scheduled Aspirin (Aspirin Ec), 81 MG PO QAM Atorvastatin (Lipitor), 20 MG PO HS Calcium Carbonate-Vitamin D (Calcium 600 + D), 1 TAB PO QAM Coenzyme Q10 (Ubidecarenone) (Co Q-10), 1 CAP PO QAM Finasteride (Proscar), 5 MG PO QAM Gabapentin (Neurontin), 300 MG PO BID Losartan Potassium (Cozaar), 100 MG PO QAM Multiple Vitamin (Multivitamin), 1 TAB PO QAM [place]-3 Fatty Acids (Fish Oil), 1 CAP PO QAM Omeprazole (Prilosec), 20 MG PO QAM Polyethylene Glycol 3350 (Miralax), 17 GM PO DAILY [Dutoprol], 1 TAB PO DAILY Scheduled PRN Hydrocodon/Acetaminophen 5MG/300MG (Vicodin (5MG/300MG)), 1 TAB PO Q4-6HOURS PRN for Pain Physical Exam Vital Signs Date Time Temp Pulse Resp B/P (MAP) Pulse Ox O2 Delivery O2 Flow Rate FiO2 03/14/17 06:42 62 16 142/82 95 03/14/17 06:00 58 18 148/95 96 Room Air 03/14/17 04:44 36.8 53 18 140/88 98 Room Air Physical Exam GENERAL: Patient is well appearing and in no acute distress. Appears mildly dehydrated HEENT: No acute trauma, normocephalic atraumatic, dry membranes moist, no nasal congestion, no scleral icterus. NECK: No stridor, no adenopathy, no meningismus, trachea is midline. LUNGS: No dyspnea. Clear to auscultation and equal bilaterally. No wheeze, no rhonchi. HEART: Bradycardic. No murmurs, rubs, gallops appreciated. ABDOMEN: Soft, nontender, bowel sounds positive, no masses appreciated, no peritonitis. BACK: No midline tenderness, no CVA tenderness EXTREMITIES: Normal motion all extremities, no cyanosis, no edema. NEUROLOGIC: Alert and oriented, no acute motor or sensory deficits, no focal weakness, cranial nerves grossly intact. SKIN: No rash, no jaundice, no diaphoresis. Medical Decision & Procedures Laboratory Results 03/14/17 04:55 Red Blood Count 4.63, Mean Corpuscular Volume 90.7, Mean Corpuscular Hemoglobin 32.0, Mean Corpuscular Hemoglobin Concent 35.2, Mean Platelet Volume 9.6, Neutrophils (%) (Auto) 62.6, Lymphocytes (%) (Auto) 24.8, Monocytes (%) (Auto) 10.3, Eosinophils (%) (Auto) 1.9, Basophils (%) (Auto) 0.2, Neutrophils # (Auto ) 3.66, Lymphocytes # (Auto) 1.45, Monocytes # (Auto) 0.60, Eosinophils # (Auto ) 0.11, Basophils # (Auto) 0.01 03/14/17 04:55 Test 03/14/17 04:55 White Blood Count 5.84 K/uL (4.8-10.8) Red Blood Count 4.63 M/uL (4.7-6.1) Hemoglobin 14.8 g/dL (14.0-18.0) Hematocrit 42.0 % (42-52) Mean Corpuscular Volume 90.7 fL (80-100) Mean Corpuscular Hemoglobin 32.0 pg (25-34) Mean Corpuscular Hemoglobin Concent 35.2 g/dl (32-36) Platelet Count 178 K/uL (130-400) Mean Platelet Volume 9.6 fL (7.4-10.4) Neutrophils (%) (Auto) 62.6 % Lymphocytes (%) (Auto) 24.8 % Monocytes (%) (Auto) 10.3 % Eosinophils (%) (Auto) 1.9 % Basophils (%) (Auto) 0.2 % Neutrophils # (Auto) 3.66 K/uL (1.4-6.5) Lymphocytes # (Auto) 1.45 K/uL (1.2-3.4) Monocytes # (Auto) 0.60 K/uL (0.11-0.59) Eosinophils # (Auto) 0.11 K/uL (0-0.5) Basophils # (Auto) 0.01 K/uL (0-0.2) RDW Standard Deviation 44.7 fL (36.4-46.3) RDW Coefficient of Variation 13.6 % (11.5-14.5) Immature Granulocyte % (Auto) 0.2 % Immature Granulocyte # (Auto) 0.01 K/uL (0.00-0.02) Anion Gap 5.0 mmol/L (3-11) Est Creatinine Clear Calc Drug Dose 35.3 ml/min Estimated GFR () 49.7 Estimated GFR (Non- 42.8 BUN/Creatinine Ratio 12.5 (10-20) Calcium Level 8.5 mg/dl (8.5-10.1) Total Creatine Kinase 112 U/L (39-308) Creatine Kinase MB 1.9 ng/ml (0.5-3.6) Creatine Kinase MB Ratio 1.7 (0-3.0) Troponin I < 0.015 ng/ml (0-0.045) Medications Administered Medications (Trade) Dose Ordered Sig/Avery Route Start Time Stop Time Status Last Admin Dose Admin Sodium Chloride 500 ml @ 999 mls/hr Q31M STAT IV 03/14/17 05:56 03/14/17 06:26 DC 03/14/17 05:59 999 MLS/HR Magnesium Citrate (Citrate Of Magnesia Soln) 296 ml NOW ONCE PO 03/14/17 06:45 03/14/17 06:46 DC 03/14/17 06:43 296 ML ECG Indication: syncope Rate (beats per minute): 47 Rhythm: sinus bradycardia Findings: 1st degree AV block (LA 214), no acute ischemic change, no ectopy Comparison ECG Date: 03/2016 - Mildly prolonged LA interval today Medical Decision Differential: Vaso-vagal, Intracerebral Event, Neurologic, Infectious, Volume Deficiency, Hypoglycemia, Electrolyte Abnormality, Cardiac Source, Toxicologic, amongst other pathologies entertained. 76 yr old male with near-syncopal event which after discussion with him and family he did not have actual full LOC. CT head/neck negative and patient feeling better. CXR clear, KUB without significant constipation. Admits he previously was on miralax but stopped as well as fact he is poor at keeping well hydrated. Given IV fluids. Mag Citrate for at home to get things going and I stressed miralax to keep regular. No evidence of perfed abdomen and he does not have pain consistent with AAA rupture. He is not interested in staying in hospital, especially given it is xmas. Cardiac rule out negative and discussed this does not mean he does not have CAD, but rather not evidence of ACS currently. He has no neuro deficits to suggest stroke. He very much wishes to go home. Will be with family and discussed symptoms requiring RTED. Stable and comfortable at time of discharge. Head Trauma GCS Score: 15 Medication Reconcilliation Current Medication List: was personally reviewed by me Blood Pressure Screening Patient's blood pressure: Elevated blood pressure Blood pressure disposition: Referred to PCP Impression Primary Impression: Near syncope Additional Impressions: Chronic back pain Therapeutic opioid induced constipation Dehydration Departure Information Dispostion Home / Self-Care Condition GOOD Prescriptions Polyethylene Glycol 3350 (MIRALAX) 1 Pow Pow 17 GM PO DAILY, #527 GM Prov: Vinicio Alvarado M.D. 03/14/17 Referrals Griffin Meraz M.D. (PCP) Patient Instructions ED Near Syncope Unkn, [facility] Additional Instructions Take Miralax twice daily until regular stools then once daily. Decrease if diarrhea. Please follow up with your primary provider for further evaluation. Return if repeat passing out, chest pain, shortness of breath, weakness of arms/ legs or other concerning symptoms. Your blood pressure was elevated during this visit. This is quite common in many people who are being evaluated in the Emergency Department for many reasons. However, it is important that you have your Primary Care Provider recheck your blood pressure and discuss whether treatment will be needed. [facility] elevated blood pressure can lead to strokes, heart attacks, kidney failure amongst other medical issues. If you develop severe headaches, chest pain, weakness in arms or legs, or other concerning symptoms call 911. Problem Qualifiers
[2017-03-14] MEDS ORDERED: HYDR-3419 PO (05:08)
[2017-03-14 05:11] LABS: BASO % 0.2 %; BASO ABS # 0.01 K/uL (0-0.2); COMPLETE YES; EOS % 1.9 %; IG% 0.2 %; LYMPH % 24.8 %; LYMPH ABS # 1.45 K/uL (1.2-3.4); MEAN CELL VOLUME 90.7 fL (80-100); MEAN CORPUSCULAR HGB CONC 35.2 g/dl (32-36); MEAN PLATELET VOLUME 9.6 fL (7.4-10.4); MONO % 10.3 %; NEUT % 62.6 %; PLATELET COUNT 178 K/uL (130-400); RED BLOOD COUNT 4.63 M/uL (4.7-6.1); WHITE BLOOD COUNT 5.84 K/uL (4.8-10.8)
[2017-03-14] MEDS ORDERED: DUTOPROL PO (05:11)
[2017-03-14 05:29] LABS: BLOOD UREA NITROGEN 19 mg/dl (7-18); BUN/CREATININE RATIO 12.5 (10-20); CALCIUM 8.5 mg/dl (8.5-10.1); CARBON DIOXIDE 30 mmol/L (21-32); CHLORIDE 105 mmol/L (98-107); CREATININE 1.55 mg/dl (0.60-1.40); GLUCOSE 108 mg/dl (70-99); POTASSIUM 3.5 mmol/L (3.5-5.1); SODIUM 140 mmol/L (136-145)
[2017-03-14 05:34] LABS: CKMB/CK RATIO 1.7 (0-3.0)
[2017-03-14] MEDS ORDERED: SODIUM CHLORIDE 0.9% 500ML 500 ML IV STA (05:56)
--- NOTE | 2017-03-14 06:10 | DIAGNOSTIC IMAGING REPORT ---
CHEST ONE VIEW PORTABLE CLINICAL HISTORY: 76 years-old Male presenting with Chest Pain. TECHNIQUE: Portable upright AP view of the chest was obtained. COMPARISON: 04/06/2016. FINDINGS: Atherosclerosis of the aortic arch. Cardiac silhouette normal in size. Minimal left basilar opacities. No pleural effusion or pneumothorax. Postsurgical changes of shoulder arthroplasties, which are similar in appearance to prior exam. Upper abdomen normal. IMPRESSION: 1. Minimal left basilar atelectasis. Otherwise no evidence of acute cardiopulmonary disease. Electronically signed by: Juan Zheng M.D. 03/14/2017 6:09 AM Dictated Date/Time: 03/14/2017 6:07 AM
--- NOTE | 2017-03-14 06:12 | DIAGNOSTIC IMAGING REPORT ---
KUB CLINICAL HISTORY: 76 years-old Male presenting with constipation symptoms without pain. TECHNIQUE: Single supine view of the abdomen was obtained. COMPARISON: Renal ultrasound from 01/26/[address] from 2005. FINDINGS: Nonobstructive bowel gas pattern. No large stool burden is apparent. No gross pneumoperitoneum. Allowing for bowel gas and stool, no calcifications to suggest nephrolithiasis. Few pelvic phleboliths noted. Posterior lumbar fusion hardware from L1 to L3. Interbody spacer noted at L5-S1. Laminectomies of the mid to lower lumbar spine. Extensive degenerative change of the lumbar spine. IMPRESSION: 1. No acute intra-abdominal pathology. No large stool burden is radiographically apparent. Electronically signed by: Juan Zheng M.D. 03/14/2017 6:11 AM Dictated Date/Time: 03/14/2017 6:09 AM
[2017-03-14] MEDS ORDERED: POLY335019 PO (06:21)
--- NOTE | 2017-03-14 06:28 | DIAGNOSTIC IMAGING REPORT ---
HEAD WITHOUT CONTRAST (CT) CLINICAL HISTORY: 76 years-old Male presenting with fall/syncope and head injury. TECHNIQUE: Multidetector CT imaging of the head was performed without the use of intravenous contrast. IV contrast: None. A dose lowering technique was used consistent with the principles of ALARA (as low as reasonably achievable). COMPARISON: 01/28/2017. CT DOSE (mGy.cm): The estimated cumulative dose is 989.25 mGy.cm. FINDINGS: Industrial Ecologist topogram: Unremarkable. Ventricles and sulci normal in size. Periventricular and subcortical white matter hypoattenuation, nonspecific but likely indicative of chronic small vessel ischemic change. No mass effect or midline shift. No hemorrhage or acute territorial infarct. No extra-axial fluid collection. Paranasal sinuses and mastoid air cells clear. Calvarium intact. Small lipoma noted superficial to the cervical musculature in the region of the occiput. IMPRESSION: 1. Chronic small vessel ischemic change. No acute intracranial abnormality. Electronically signed by: Juan Zheng M.D. 03/14/2017 6:27 AM Dictated Date/Time: 03/14/2017 6:24 AM
--- NOTE | 2017-03-14 06:34 | DIAGNOSTIC IMAGING REPORT ---
CERVICAL SPINE W/O CLINICAL HISTORY: 76 years-old Male presenting with fall, head injury neck pain posterior. TECHNIQUE: Multidetector CT of the cervical spine was performed without the use of intravenous contrast. IV contrast: None. A dose lowering technique was used consistent with the principles of ALARA (as low as reasonably achievable). COMPARISON: 04/06/2016. CT DOSE (mGy.cm): The estimated cumulative dose is 3195.89. FINDINGS: Investment Accountant topogram: Unremarkable. Straightening of normal cervical lordosis likely positional and secondary to degenerative change. Unchanged 2.6 mm of grade 1 anterolisthesis of C4 on C5. Mild vertebral body height loss noted in the mid cervical spine as on prior exam. No focal compression deformity. No acute fracture or subluxation. Extensive intervertebral disc height loss at nearly every level with the exception of C2-3. Disc osteophyte complexes to varying degrees from C3-4 through C7-T1. Mild facet arthropathy. Disc osteophyte complexes and uncovertebral hypertrophy result in mild osseous neural foraminal narrowing at C3-4 bilaterally and on the right at C4-5. No osseous spinal canal narrowing. Paraspinal soft tissues within normal limits with the exception of atherosclerosis. Lung apices clear. IMPRESSION: 1. No acute osseous injury of the cervical spine. 2. Extensive multilevel degenerative changes as on prior exam with osseous neural foraminal narrowing at C3-4 bilaterally and on the right at the 45. Electronically signed by: Juan Zheng M.D. 03/14/2017 6:33 AM Dictated Date/Time: 03/14/2017 6:27 AM
[2017-03-14 06:42] VITALS: BP 142/82; PULSE 62; O2SAT 95
[2017-03-14] MEDS ORDERED: MAGNESIUM CITRATE 296 ML/BTL PO ONE (06:45)
[2017-03-14] MEDS ORDERED: METO25TA3 PO (15:53)
[2017-03-14] MEDS ORDERED: HYDR12.56 PO (15:53)
[2017-03-18] MEDS ORDERED: CPR500 PO (11:54)
[2017-03-18] MEDS ORDERED: MTR500 PO (11:54)
== END 2017-03-14 06:50 | disposition home or self-care (01) ==
LOC: EDBD 04:40 → C.EDB 04:41
DX: R55 Syncope and collapse (principal); M54.9 Dorsalgia, unspecified; G89.29 Other chronic pain; K59.03 Drug induced constipation; T40.2X5A Adverse effect of other opioids, initial encounter; E86.0 Dehydration; I10 Essential (primary) hypertension; N40.0 Benign prostatic hyperplasia without lower urinary tract symptoms; Z79.82 Long term (current) use of aspirin

== ENCOUNTER 2017-03-14 13:26 | Inpatient (IN) | payer BC, OTHER ==
[~2017-03-14] VITALS: Ht 165.1 cm; Wt 72.5 kg
[~2017-03-14 13:26] MED LIST changes: +DUTOPROL PO; +HYDR-3419 PO; +POLY335019 PO
[2017-03-14] MEDS ORDERED: ONDANSETRON INJ 2 MG/ML 2 ML VIAL IV STA (14:34)
[2017-03-14] MEDS ORDERED: SODIUM CHLORIDE 0.9% 1000ML 1,000 ML IV STA (14:34)
[2017-03-14] MEDS ORDERED: MoRPHine SULFATE 2 MG/ML CARP IV STA ×3 (14:34→19:22)
--- NOTE | 2017-03-14 14:46 | EMERGENCY ROOM VISIT NOTE ---
History Report prepared by Pauly: Onesimo Pena Under the Supervision of: Dr. Es Heath M.D. First contact with patient: 14:22 Chief Complaint: ABDOMINAL PAIN Stated Complaint: STOMACH PAIN, VOMITING History of Present Illness The patient is a 76 year old male who presents to the Emergency Room with complaints of constant, severe, abdominal pain beginning earlier today. The patient states he was evaluated in the department earlier today for a near syncopal episode that occurred after trying to use the restroom, mild abdominal pain, and diarrhea. He reports he was discharged home after a complete work-up and developed a large amount of blood and clots in his stool. The patient state it is now difficult to go to the bathroom. The patient notes while he was being evaluated earlier, he vomited twice after receiving two different forms of laxatives. He denies falling. Source of History: patient Onset: earlier today Position: abdomen Symptom Intensity: severe Timing: constant Associated Symptoms: + vomiting, + diarrhea Note: Associated symptoms: blood in stool, trouble using the restroom Denies: falling Review of Systems See HPI for pertinent positives & negatives. A total of 10 systems reviewed and were otherwise negative. Past Medical & Surgical Medical Problems: (1) BPH (benign prostatic hyperplasia) (2) Chronic back pain (3) HTN (hypertension) (4) Influenza A (5) Syncope Surgical Problems: (1) H/O shoulder replacement (2) Previous back surgery Family History Cancer Heart disease Hypertension Social History Smoking Status: Never Smoker Drug Use: none Marital Status: Housing Status: lives with family Occupation Status: retired Current/Historical Medications Scheduled Aspirin (Aspirin Ec), 81 MG PO QAM Atorvastatin (Lipitor), 20 MG PO HS Calcium Carbonate-Vitamin D (Calcium 600 + D), 1 TAB PO QAM Coenzyme Q10 (Ubidecarenone) (Co Q-10), 1 CAP PO QAM Finasteride (Proscar), 5 MG PO QAM Gabapentin (Neurontin), 300 MG PO BID Hydrochlorothiazide (Hctz), 12.5 MG PO DAILY Losartan Potassium (Cozaar), 100 MG PO QAM Metoprolol Succ (Toprol Xl) (Toprol-Xl), 25 MG PO DAILY Multiple Vitamin (Multivitamin), 1 TAB PO QAM [place]-3 Fatty Acids (Fish Oil), 1 CAP PO QAM Omeprazole (Prilosec), 20 MG PO QAM Polyethylene Glycol 3350 (Miralax), 17 GM PO DAILY Scheduled PRN Hydrocodon/Acetaminophen 5MG/300MG (Vicodin (5MG/300MG)), 1 TAB PO Q4-6HOURS PRN for Pain Allergies Coded Allergies: Doxazosin (Verified Allergy, Mild, 03/14/17) Oxaprozin (Verified Allergy, Unknown, 03/14/17) Terazosin (Verified Adverse Reaction, Mild, nervousness, 03/14/17) Physical Exam Vital Signs Date Time Temp Pulse Resp B/P (MAP) Pulse Ox O2 Delivery O2 Flow Rate FiO2 03/14/17 19:18 109 12 126/83 96 Room Air 03/14/17 18:03 92 03/14/17 17:13 95 18 159/98 98 Room Air 03/14/17 14:55 77 16 167/95 96 Room Air 03/14/17 13:59 75 03/14/17 13:36 36.5 64 22 138/93 98 Room Air Physical Exam Vital signs reviewed. General: Well-appearing 76 year old male, in no significant distress. HEENT: No scleral icterus, PERRLA, neck supple. Atraumatic. Cardiovascular: Regular rate and rhythm, no extra sounds. Pulmonary: Clear to auscultation bilaterally, normal work of breathing. Abdomen: Soft, mild suprapubic tenderness, nondistended, positive bowel sounds. Rectal: Moderately sized external hemorrhoid that is inflamed and bleeding. Guaiac positive. Grossly bloody stool. Musculoskeletal: Atraumatic, no peripheral edema. Neurologic: Patient awake alert and oriented x 3 Skin: Warm, dry, no rash Medical Decision & Procedures ER Provider Diagnostic Interpretation: CT results as stated below per my review and radiologist interpretation: ABD/PELVIS IV CONTRAST ONLY CLINICAL HISTORY: 76 years-old Male presenting with Lower abd pain, rectal bleed. TECHNIQUE: Multidetector CT of the abdomen and pelvis was performed after the administration of intravenous contrast. IV contrast: 94 mL of Optiray 320. A dose lowering technique was used consistent with the principles of ALARA (as low as reasonably achievable). COMPARISON: 06/15/2005. CT DOSE (mGy.cm): The estimated cumulative dose is 331.28 mGy.cm. FINDINGS: [employer] topogram: Posterior lumbar fusion hardware. Lung bases: Minimal basilar opacities, likely atelectasis. Mosaic attenuation at the lung bases could suggest small airways disease or relate to the phase of respiration. Normal heart size. No pericardial or pleural effusion. Liver: Normal morphology. Density consistent with hepatic steatosis. No focal lesion. Patent hepatic vasculature. Biliary: No intrahepatic or extrahepatic biliary ductal dilatation. Normal gallbladder. Pancreas: Normal. Spleen: Normal. Adrenal glands: Stable appearance of the 1.9 cm left adrenal nodule previously shown to represent a benign adenoma. Right adrenal gland normal. Kidneys and ureters: Well-defined hypodensity in the left kidney likely simple cyst with no hydronephrosis. No nephrolithiasis. Bladder: Mild circumferential bladder wall thickening allowing for under distention, likely suggesting chronic outlet obstruction.. Pelvic organs: Prostate enlargement likely secondary to benign prostatic hyperplasia. Bowel: Significant colonic wall thickening of the descending colon extending from the hepatic flexure to the proximal sigmoid. Mild pericolonic fat stranding along the descending portion. Fluid noted in the more proximal colon suggesting a diarrheal state. The appendix is normal. No bowel obstruction. Peritoneal cavity: No free fluid or intraperitoneal gas. Lymph nodes: No enlarged lymph nodes in the abdomen or pelvis. Vasculature: Atherosclerosis of the normal caliber abdominal aorta. IVC patent. Abdominal wall: Normal. Musculoskeletal: Posterior lumbar fusion hardware extending from L1-2 L3 with laminectomy defects of L2-L5. Old screw tracks through L4-S1 noted. Retrolisthesis of L3 on L4, which has progressed since the prior exam. Marked irregularity of the L3-4 disc space. Fatty atrophy of the paraspinal musculature. IMPRESSION: 1. Wall thickening of the descending colon with mild pericolonic inflammatory change consistent with colitis. This is most likely infectious in etiology, especially given the concomitant findings of proximal colonic fluid, which suggests a diarrheal state. Differential considerations include ischemic colitis, which is felt to be much less likely. 2. 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 3. Hepatic steatosis. 4. Postsurgical and degenerative changes of the lumbar spine. Retrolisthesis of L3 on L4 and L3-4 endplate irregularity has progressed since the prior exam. If there is clinical concern for infection, contrast-enhanced MR of the lumbar spine would better demonstrate possible bony edema and inflammatory change. The report will be called/faxed according to standard departmental protocol. Electronically signed by: Juan Zheng M.D. 03/14/2017 4:09 PM Dictated Date/Time: 03/14/2017 3:59 PM Laboratory Results 03/14/17 14:00 Red Blood Count 5.02, Mean Corpuscular Volume 89.2, Mean Corpuscular Hemoglobin 32.5, Mean Corpuscular Hemoglobin Concent 36.4, Mean Platelet Volume 9.7, Neutrophils (%) (Auto) 87.7, Lymphocytes (%) (Auto) 6.6, Monocytes (%) (Auto) 5.3, Eosinophils (%) (Auto) 0.1, Basophils (%) (Auto) 0.1, Neutrophils # (Auto) 9.67, Lymphocytes # (Auto) 0.73, Monocytes # (Auto) 0.58, Eosinophils # (Auto) 0.01, Basophils # (Auto) 0.01 03/14/17 14:00 Test 03/14/17 14:00 03/14/17 15:04 White Blood Count 11.02 K/uL (4.8-10.8) Red Blood Count 5.02 M/uL (4.7-6.1) Hemoglobin 16.3 g/dL (14.0-18.0) Hematocrit 44.8 % (42-52) Mean Corpuscular Volume 89.2 fL (80-100) Mean Corpuscular Hemoglobin 32.5 pg (25-34) Mean Corpuscular Hemoglobin Concent 36.4 g/dl (32-36) Platelet Count 201 K/uL (130-400) Mean Platelet Volume 9.7 fL (7.4-10.4) Neutrophils (%) (Auto) 87.7 % Lymphocytes (%) (Auto) 6.6 % Monocytes (%) (Auto) 5.3 % Eosinophils (%) (Auto) 0.1 % Basophils (%) (Auto) 0.1 % Neutrophils # (Auto) 9.67 K/uL (1.4-6.5) Lymphocytes # (Auto) 0.73 K/uL (1.2-3.4) Monocytes # (Auto) 0.58 K/uL (0.11-0.59) Eosinophils # (Auto) 0.01 K/uL (0-0.5) Basophils # (Auto) 0.01 K/uL (0-0.2) RDW Standard Deviation 43.7 fL (36.4-46.3) RDW Coefficient of Variation 13.4 % (11.5-14.5) Immature Granulocyte % (Auto) 0.2 % Immature Granulocyte # (Auto) 0.02 K/uL (0.00-0.02) Prothrombin Time 10.2 SECONDS (9.0-12.0) Prothromb Time International Ratio 1.0 (0.9-1.1) Activated Partial Thromboplast Time 24.4 SECONDS (21.0-31.0) Partial Thromboplastin Ratio 0.9 Anion Gap 9.0 mmol/L (3-11) Est Creatinine Clear Calc Drug Dose 38.2 ml/min Estimated GFR () 54.7 Estimated GFR (Non- 47.2 BUN/Creatinine Ratio 12.2 (10-20) Calcium Level 8.7 mg/dl (8.5-10.1) Magnesium Level 1.8 mg/dl (1.8-2.4) Total Bilirubin 0.6 mg/dl (0.2-1) Direct Bilirubin 0.1 mg/dl (0-0.2) Aspartate Amino Transf (AST/SGOT) 35 U/L (15-37) Alanine Aminotransferase (ALT/SGPT) 41 U/L (12-78) Alkaline Phosphatase 110 U/L (45-117) Total Protein 7.3 gm/dl (6.4-8.2) Albumin 3.8 gm/dl (3.4-5.0) Lipase 138 U/L (73-393) Urine Color YELLOW Urine Appearance CLEAR (CLEAR) Urine pH 5.5 (4.5-7.5) Urine Specific [place] 1.022 (1.000-1.030) Urine Protein NEG (NEG) Urine Glucose (UA) NEG (NEG) Urine Ketones NEG (NEG) Urine Occult Blood NEG (NEG) Urine Nitrite NEG (NEG) Urine Bilirubin NEG (NEG) Urine Urobilinogen NEG (NEG) Urine Leukocyte Esterase NEG (NEG) Date/Time Source Procedure Growth Status 03/14/17 15:31 Stool C.difficile Toxin B Gene (PCR) - Final No C. difficile toxin B gene detected Complete Laboratory results per my review. Medications Administered Medications (Trade) Dose Ordered Sig/Avery Route Start Time Stop Time Status Last Admin Dose Admin Sodium Chloride 1,000 ml @ 125 mls/hr Q8H STAT IV 03/14/17 14:34 03/14/17 22:33 03/14/17 15:02 125 MLS/HR Morphine Sulfate (MoRPHine SULFATE INJ) 2 mg NOW STAT IV 03/14/17 14:34 03/14/17 14:41 DC 03/14/17 15:01 2 MG Ondansetron HCl (Zofran Inj) 4 mg NOW STAT IV 03/14/17 14:34 03/14/17 14:41 DC 03/14/17 15:01 4 MG Morphine Sulfate (MoRPHine SULFATE INJ) 2 mg NOW STAT IV 03/14/17 16:51 03/14/17 16:52 DC 03/14/17 17:08 2 MG Morphine Sulfate (MoRPHine SULFATE INJ) 2 mg NOW STAT IV 03/14/17 19:22 03/14/17 19:24 DC 03/14/17 19:30 2 MG ECG Indication: abdominal pain Rate (beats per minute): 65 Rhythm: normal sinus Findings: no acute ischemic change, no ectopy ED Course 1432: Past medical records reviewed. The patient was evaluated in room B06. A complete history and physical examination was performed. 1434: Ordered Ondansetron HCl 4mg IV, Morphine Sulfate 2mg IV, Sodium Chloride 1000 ml @ 125 mls/hr IV 1651: Ordered Morphine Sulfate 2mg IV 1717: Upon reevaluation, the patient is resting comfortably. I discussed laboratory and radiographic results with him. He verbalized agreement of the treatment plan. The patient will be evaluated for further management and care. 1755: I discussed the patient's case with Dr. Aman Thompson, [facility] Hospitalist. The patient will be evaluated for further management and care. Medical Decision Differential diagnosis: Etiologies such as diverticulosis, AVM, coagulopathy, colitis, inflammatory bowel disease, malignancy, Jeanne-Jones tear, esophagitis, peptic ulcer disease , variceal bleed, gastritis, epistaxis, fissure, hemorrhoids, as well as others were entertained. This patient was evaluated and appeared to be in no significant distress. Physical examination reveals a suprapubic abdominal tenderness. He does have several inflamed external hemorrhoids that appear to have recently bled. Stool sample was obtained and is grossly bloody. This has been sent for testing. Laboratory work reveals a stable H&H. The patient does have a mild leukocytosis. Patient was hydrated with normal saline solution. He did receive morphine and Zofran for his discomfort. Patient's CT scan of the abdomen and pelvis is consistent with an infectious colitis. C. difficile toxin is negative. Stool cultures are pending. The patient's case was discussed with the hospitalist service will evaluate the patient for admission and further management. Patient family are aware of the plan and agree. Medication Reconcilliation Current Medication List: was personally reviewed by me Blood Pressure Screening Patient's blood pressure: Elevated blood pressure Monitored by Hospitalist. Consults Time Called: 1717 Consulting Physician: Dr. Aman Thompson, [facility] Hospitalist Returned Call: 1755 I discussed the patient's case with Dr. Aman Thompson, [facility] Hospitalist. The patient will be evaluated for further management and care. Impression Primary Impression: Hemorrhagic colitis Scribe Attestation The scribe's documentation has been prepared under my direction and personally reviewed by me in its entirety. I confirm that the note above accurately reflects all work, treatment, procedures, and medical decision making performed by me. Departure Information Dispostion Being Evaluated By Hospitalist Referrals Griffin Meraz M.D. (PCP) Patient Instructions My [facility]
[2017-03-14 14:48] LABS: BASO % 0.1 %; BASO ABS # 0.01 K/uL (0-0.2); EOS % 0.1 %; EOS ABS # 0.01 K/uL (0-0.5); HEMATOCRIT 44.8 % (42-52); HEMOGLOBIN 16.3 g/dL (14.0-18.0); IG# 0.02 K/uL (0.00-0.02); LYMPH % 6.6 %; LYMPH ABS # 0.73 K/uL (1.2-3.4); MEAN CELL VOLUME 89.2 fL (80-100); MEAN CORPUSCULAR HEMOGLOBIN 32.5 pg (25-34); MEAN CORPUSCULAR HGB CONC 36.4 g/dl (32-36); MEAN PLATELET VOLUME 9.7 fL (7.4-10.4); MONO % 5.3 %; MONO ABS # 0.58 K/uL (0.11-0.59); NEUT % 87.7 %; NEUT ABS # 9.67 K/uL (1.4-6.5); PLATELET COUNT 201 K/uL (130-400); RED CELL DISTRIBUTION WIDTH CV 13.4 % (11.5-14.5); RED CELL DISTRIBUTION WIDTH SD 43.7 fL (36.4-46.3); WHITE BLOOD COUNT 11.02 K/uL (4.8-10.8)
[2017-03-14 14:56] LABS: ALBUMIN 3.8 gm/dl (3.4-5.0); CALCIUM 8.7 mg/dl (8.5-10.1); CREATININE 1.43 mg/dl (0.60-1.40); POTASSIUM 3.3 mmol/L (3.5-5.1)
[2017-03-14 14:58] LABS: PTT PATIENT 24.4 SECONDS (21.0-31.0)
[2017-03-14 14:59] LABS: TOTAL PROTEIN 7.3 gm/dl (6.4-8.2)
[2017-03-14] MEDS ORDERED: OPTIRAY 320 IV PRN (15:00)
[2017-03-14] MEDS ORDERED: HYDR12.56 PO (15:53)
[2017-03-14] MEDS ORDERED: METO25TA3 PO (15:53)
--- NOTE | 2017-03-14 16:10 | DIAGNOSTIC IMAGING REPORT ---
ABD/PELVIS IV CONTRAST ONLY CLINICAL HISTORY: 76 years-old Male presenting with Lower abd pain, rectal bleed. TECHNIQUE: Multidetector CT of the abdomen and pelvis was performed after the administration of intravenous contrast. IV contrast: 94 mL of Optiray 320. A dose lowering technique was used consistent with the principles of ALARA (as low as reasonably achievable). COMPARISON: 06/15/2005. CT DOSE (mGy.cm): The estimated cumulative dose is 331.28 mGy.cm. FINDINGS: Agriculture Technician topogram: Posterior lumbar fusion hardware. Lung bases: Minimal basilar opacities, likely atelectasis. Mosaic attenuation at the lung bases could suggest small airways disease or relate to the phase of respiration. Normal heart size. No pericardial or pleural effusion. Liver: Normal morphology. Density consistent with hepatic steatosis. No focal lesion. Patent hepatic vasculature. Biliary: No intrahepatic or extrahepatic biliary ductal dilatation. Normal gallbladder. Pancreas: Normal. Spleen: Normal. Adrenal glands: Stable appearance of the 1.9 cm left adrenal nodule previously shown to represent a benign adenoma. Right adrenal gland normal. Kidneys and ureters: Well-defined hypodensity in the left kidney likely simple cyst with no hydronephrosis. No nephrolithiasis. Bladder: Mild circumferential bladder wall thickening allowing for under distention, likely suggesting chronic outlet obstruction.. Pelvic organs: Prostate enlargement likely secondary to benign prostatic hyperplasia. Bowel: Significant colonic wall thickening of the descending colon extending from the hepatic flexure to the proximal sigmoid. Mild pericolonic fat stranding along the descending portion. Fluid noted in the more proximal colon suggesting a diarrheal state. The appendix is normal. No bowel obstruction. Peritoneal cavity: No free fluid or intraperitoneal gas. Lymph nodes: No enlarged lymph nodes in the abdomen or pelvis. Vasculature: Atherosclerosis of the normal caliber abdominal aorta. IVC patent. Abdominal wall: Normal. Musculoskeletal: Posterior lumbar fusion hardware extending from L1-2 L3 with laminectomy defects of L2-L5. Old screw tracks through L4-S1 noted. Retrolisthesis of L3 on L4, which has progressed since the prior exam. Marked irregularity of the L3-4 disc space. Fatty atrophy of the paraspinal musculature. IMPRESSION: 1. Wall thickening of the descending colon with mild pericolonic inflammatory change consistent with colitis. This is most likely infectious in etiology, especially given the concomitant findings of proximal colonic fluid, which suggests a diarrheal state. Differential considerations include ischemic colitis, which is felt to be much less likely. 2. 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 3. Hepatic steatosis. 4. Postsurgical and degenerative changes of the lumbar spine. Retrolisthesis of L3 on L4 and L3-4 endplate irregularity has progressed since the prior exam. If there is clinical concern for infection, contrast-enhanced MR of the lumbar spine would better demonstrate possible bony edema and inflammatory change. The report will be called/faxed according to standard departmental protocol. Electronically signed by: Juan Zheng M.D. 03/14/2017 4:09 PM Dictated Date/Time: 03/14/2017 3:59 PM
[2017-03-14] MEDS ORDERED: ALUMINUM/MAGNESIUM/SIMETH (MAALOX MAX) 30 ML UDC PO PRN (20:00)
[2017-03-14] MEDS ORDERED: ACETAMINOPHEN 325 MG TAB PO PRN (20:00)
[2017-03-14] MEDS ORDERED: POLYETHYLENE (MIRALAX) 17 GM PACK PO PRN (20:00)
[2017-03-14] MEDS ORDERED: MAGNESIUM HYDROXIDE SUSP 30 ML UDC PO PRN (20:00)
[2017-03-14] MEDS ORDERED: ZOLPIDEM TARTRATE 5 MG TAB PO PRN ×2 (20:00)
[2017-03-14 20:25] VITALS: BP 153/77; PULSE 93; TEMP 37.1; O2SAT 97; Ht 165.1 cm; Wt 72.5 kg
--- NOTE | 2017-03-14 20:25 | NUR ---
A/ID: PT ARRIVED TO UNIT AROUND THIS TIME VIA LITTER. PT AMBULATED INTO HOSPITAL BED WITH WEAK BUT STEADY GAIT. ASSESSMENT COMPLETED SEE DOCUMENTATION FOR DETAILS. GOWN CHANGED, MONITOR APPLIED, WEIGHT, AND VITAL SIGNS TAKEN. PT ORIENTED TO ROOM, CALL [facility], LIGHTS, BED CONTROLS, AND UNIT ACTIVITIES. CODE WORD AND FALL SHEET SIGNED. PT GIVEN RED SOCKS AND YELLOW FALL BRACELET PRECAUTION AND WAS EDUCATED ON RISK FOR FALLS. URINAL IN RESTROOM. AT BEDSIDE. CALL [facility] WITHIN REACH. PENDING DISCHARGE.
[2017-03-14] MEDS: MoRPHine SULFATE 2 MG/ML CARP IV PRN (20:59)
[2017-03-14] MEDS: SODIUM CHLORIDE 0.9% 1000ML 1,000 ML IV SCH (21:03)
[2017-03-14] MEDS: GABAPENTIN 300 MG CAP PO SCH (21:15)
[2017-03-14] MEDS: ATORVASTATIN 20 MG TAB PO SCH (21:16)
[2017-03-14] MEDS: METRONIDAZOLE / NSS 500 MG in PREMIXED NSS 100 ML IV SCH (21:16)
[2017-03-14] MEDS: ACETYLCYSTEINE 600 MG CAP PO SCH (21:17)
--- NOTE | 2017-03-14 21:43 | History and Physical ---
History & Physical Date & Time of Service: Mar 14, 2017 at 21:35 Chief Complaint: Hemorrhagic Colitis Primary Care Physician: Griffin Meraz M.D. History of Present Illness Source: patient, family, partner 76 years old man with past medical history of multiple back surgeries and chronic lower back pain, hypertension, chronic kidney disease stage III, Presented to the ED yesterday at 3 AM with sudden onset lower abdominal pain. Patient was discharged from the ED home after his pain slightly improved. He woke up this morning with more significant lower abdominal pain. He went to the bathroom and had 3 bloody bowel movements. He vomited twice after he tried to take the Maalox, emesis was clear Denies any dizziness/presyncope lightheadedness, denies any chest pain or shortness of breath. Admits though to some lightheadedness and previous attack of abdominal pain at 3 AM but not on the second. CT scan of abdomen showed descending colon thickening/pericolonic finding suggestive of acute colitis Also showed some worsening in his DJD lumbar disease and suggested further evaluation with MRI when possible Past Medical/Surgical History Medical Problems: (1) HTN (hypertension) Status: Chronic Surgical Problems: (1) H/O shoulder replacement Status: Resolved (2) Previous back surgery Status: Resolved Family History Cancer Heart disease Hypertension Social History Smoking Status: Never Smoker Drug Use: none Marital Status: Occupational Status: retired Immunizations History of Influenza Vaccine: Unknown History of Tetanus Vaccine?: Unknown History of Pneumococcal: Unknown History of Hepatitis B Vaccine: Unknown Multi-Drug Resistant Organisms History of MDRO: No Allergies Coded Allergies: Doxazosin (Verified Allergy, Mild, 03/14/17) Oxaprozin (Verified Allergy, Unknown, 03/14/17) Terazosin (Verified Adverse Reaction, Mild, nervousness, 03/14/17) Home Medications Scheduled Aspirin (Aspirin Ec), 81 MG PO QAM Atorvastatin (Lipitor), 20 MG PO HS Calcium Carbonate-Vitamin D (Calcium 600 + D), 1 TAB PO QAM Coenzyme Q10 (Ubidecarenone) (Co Q-10), 1 CAP PO QAM Finasteride (Proscar), 5 MG PO QAM Gabapentin (Neurontin), 300 MG PO BID Hydrochlorothiazide (Hctz), 12.5 MG PO DAILY Losartan Potassium (Cozaar), 100 MG PO QAM Metoprolol Succ (Toprol Xl) (Toprol-Xl), 25 MG PO DAILY Multiple Vitamin (Multivitamin), 1 TAB PO QAM [place]-3 Fatty Acids (Fish Oil), 1 CAP PO QAM Omeprazole (Prilosec), 20 MG PO QAM Polyethylene Glycol 3350 (Miralax), 17 GM PO DAILY Scheduled PRN Hydrocodon/Acetaminophen 5MG/300MG (Vicodin (5MG/300MG)), 1 TAB PO Q4-6HOURS PRN for Pain Review of Systems Constitutional: No fever, No chills, No sweats, No weight loss, No weakness, No fatigue, No problem reported Eyes: No worsening of vision, No eye pain, No redness, No discharge, No diplopia, No problem reported ENT: No hearing loss, No unusual epistaxis, No nasal symptoms, No sore throat, No tinnitus, No dental problems, No trouble swallowing, No problem reported Respiratory: No cough, No sputum, No wheezing, No shortness of breath, No dyspnea on exertion, No dyspnea at rest, No hemoptysis, No problem reported Cardiovascular: No chest pain, No orthopnea, No PND, No edema, No claudication , No palpitations, No problem reported Abdomen: + nausea, + vomiting, + GI bleeding, No pain, No diarrhea, No constipation, No problem reported Musculoskeletal: + joint pain, + muscle pain, No swelling, No calf pain, No problem reported Genitourinary - Male: No hematuria, No dysuria, No urinary frequency, No urinary urgency, No urinary hesitancy, No urinary retention, No urinary incontinence, No penile discharge, No lesions, No impotence, No problem reported Neurologic: No memory loss, No paralysis, No weakness, No numbness/tingling, No vertigo, No balance problems, No problem reported Psychiatric: No depression symptoms, No anhedonism, No anxiety, No insomnia, No substance abuse, No problem reported Endocrine: No fatigue, No excessive thirst, No excessive urination, No problem reported Hematologic / Lymphatic: No abnormal bleeding/bruising, No clotting problems, No swollen lymph nodes, No night sweats, No problem reported Integumentary: No rash, No itch, No new/changing skin lesions, No color change , No bleeding, No problem reported Allergic / Immunologic: No environmental allergies, No seasonal allergies, No pet sensitivities, No food allergies, No hives, No frequent infections, No poor healing, No prolonged convalescence, No problem reported Physical Exam Vital Signs Date Time Temp Pulse Resp B/P (MAP) Pulse Ox O2 Delivery O2 Flow Rate FiO2 03/14/17 20:25 37.1 93 18 153/77 97 Room Air 03/14/17 20:10 109 12 126/83 96 03/14/17 19:18 109 12 126/83 96 Room Air 03/14/17 18:03 92 03/14/17 17:13 95 18 159/98 98 Room Air 03/14/17 14:55 77 16 167/95 96 Room Air 03/14/17 13:59 75 03/14/17 13:36 36.5 64 22 138/93 98 Room Air General Appearance: WD/WN, no apparent distress Head: normocephalic, atraumatic Eyes: normal inspection, EOMI ENT: normal ENT inspection, hearing grossly normal Neck: supple Respiratory/Chest: chest non-tender, lungs clear, normal breath sounds, no respiratory distress, no accessory muscle use Cardiovascular: regular rate, rhythm, no edema, no gallop, no JVD, no murmur Abdomen/GI: normal bowel sounds, no organomegaly, no pulsatile mass, + tenderness, + distended Back: normal inspection Extremities/Musculoskelatal: normal inspection, no calf tenderness, normal capillary refill, no pedal edema, normal range of motion 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7 % Lymphocytes (%) (Auto) 6.6 % Monocytes (%) (Auto) 5.3 % Eosinophils (%) (Auto) 0.1 % Basophils (%) (Auto) 0.1 % Neutrophils # (Auto) 9.67 1.4-6.5 K/uL Lymphocytes # (Auto) 0.73 1.2-3.4 K/uL Monocytes # (Auto) 0.58 0.11-0.59 K/uL Eosinophils # (Auto) 0.01 0-0.5 K/uL Basophils # (Auto) 0.01 0-0.2 K/uL RDW Standard Deviation 43.7 36.4-46.3 fL RDW Coefficient of Variation 13.4 11.5-14.5 % Immature Granulocyte % (Auto) 0.2 % Immature Granulocyte # (Auto) 0.02 0.00-0.02 K/uL Prothrombin Time 10.2 9.0-12.0 SECONDS Prothromb Time International Ratio 1.0 0.9-1.1 Activated Partial Thromboplast Time 24.4 21.0-31.0 SECONDS Partial Thromboplastin Ratio 0.9 Sodium Level 140 136-145 mmol/L Potassium Level 3.3 3.5-5.1 mmol/L Chloride Level 104 98-107 mmol/L Carbon Dioxide Level 28 21-32 mmol/L Anion Gap 9.0 3-11 mmol/L Blood Urea Nitrogen 17 7-18 mg/dl Creatinine 1.43 0.60-1.40 mg/dl Est Creatinine Clear Calc Drug Dose 38.2 ml/min Estimated GFR () 54.7 Estimated GFR (Non- 47.2 BUN/Creatinine Ratio 12.2 10-20 Random Glucose 108 70-99 mg/dl Calcium Level 8.7 8.5-10.1 mg/dl Magnesium Level 1.8 1.8-2.4 mg/dl Total Bilirubin 0.6 0.2-1 mg/dl Direct Bilirubin 0.1 0-0.2 mg/dl Aspartate Amino Transf (AST/SGOT) 35 15-37 U/L Alanine Aminotransferase (ALT/SGPT) 41 12-78 U/L Alkaline Phosphatase 110 45-117 U/L Total Protein 7.3 6.4-8.2 gm/dl Albumin 3.8 3.4-5.0 gm/dl Lipase 138 73-393 U/L Urine Color YELLOW Urine Appearance CLEAR CLEAR Urine pH 5.5 4.5-7.5 Urine Specific [place] 1.022 1.000-1.030 Urine Protein NEG NEG Urine Glucose (UA) NEG NEG Urine Ketones NEG NEG Urine Occult Blood NEG NEG Urine Nitrite NEG NEG Urine Bilirubin NEG NEG Urine Urobilinogen NEG NEG Urine Leukocyte Esterase NEG NEG Microbiology Results 03/14/17 C.difficile Toxin B Gene (PCR) - Final, Complete No C. difficile toxin B gene detected 03/14/17 Shiga Toxin Test, Received Pending 03/14/17 Stool Culture, Received Pending Impression Assessment and Plan 76 years old man with past medical history of multiple surgeries in his back, hypertension presented to the ED with lower abdominal pain, CAT scan imaging suggestive of colitis, multiple bloody bowel movements with stable hemoglobin. Assessment Lower GI bleed secondary to below Acute colitis, likely infectious but cannot rule out ischemic Lower abdominal pain secondary to above Hypertension Progressive significant degenerative joint disease Chronic kidney disease stage III, creatinine at baseline Plan Admit to telemetry Hemoglobin appears to be stable Check H and H every 12 hours Continue supportive care Took a blood consent from the patient just in case he bleeds profusely overnight Consult GI Empiric Cipro/Flagyl Nothing by mouth for bowel rest IV fluid hydration/Mucomyst as patient was exposed to contrast SCD boot for DVT prophylaxis Patient needs to be instructed to do colonoscopy as an outpatient upon discharge Also needs to follow-up and 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 Y/N: Yes Risk Level: High
[2017-03-14] MEDS: CIPROFLOXACIN / D5W 400 MG in PREMIXED IN D5W 200 ML IV SCH (22:28)
[2017-03-14 23:49] VITALS: BP 121/77; PULSE 97; TEMP 37; O2SAT 94
[2017-03-14] MEDS: ONDANSETRON INJ 2 MG/ML 2 ML VIAL IV PRN (23:53)
--- NOTE | 2017-03-15 00:01 | NUR ---
A: PT RESTING IN BED WITH COMPLAINT OF NAUSEA. PT MEDICATED SEE EMAR. NO ACUTE ASSESSMENT CHANGES. CALL MEJIAS WITHIN REACH.
[2017-03-15 03:12] VITALS: BP 116/66; PULSE 82; TEMP 37; O2SAT 94
[2017-03-15] MEDS: METRONIDAZOLE / NSS 500 MG in PREMIXED NSS 100 ML IV SCH ×3 (03:24→20:18)
[2017-03-15] MEDS: MoRPHine SULFATE 2 MG/ML CARP IV PRN ×3 (03:27→17:16)
--- NOTE | 2017-03-15 03:30 | NUR ---
A: PT AMBULATED TO TOILET STATING HE NEEDS TO HAVE A BOWEL MOVEMENT. PT NOTED TO HAVE ABOUT 100ML BRIGHT RED BLOOD IN THE HAT IN THE TOILET. NO BM TO COLLECT.
--- NOTE | 2017-03-15 04:00 | NUR ---
A: NO ACUTE ASSESSMENT CHANGES. IVF INFUSING. SCD INTACT. CALL MEJIAS WITHIN REACH.
--- NOTE | 2017-03-15 04:39 | NUR ---
A: PT REQUESTED REMOVAL OF BIPAP AT THIS TIME AND WAS PLACED ON 5L NASAL CANNULA. PT GIVEN MOUTH AND LIP MOISTURIZER FOR COMPLAINT OF DRY MOUTH.
[2017-03-15 06:58] LABS: BASO % 0.1 %; BASO ABS # 0.01 K/uL (0-0.2); EOS % 0.4 %; EOS ABS # 0.04 K/uL (0-0.5); HEMATOCRIT 39.6 % (42-52); HEMOGLOBIN 14.4 g/dL (14.0-18.0); IG# 0.02 K/uL (0.00-0.02); LYMPH ABS # 1.25 K/uL (1.2-3.4); MEAN CELL VOLUME 89.6 fL (80-100); MEAN CORPUSCULAR HEMOGLOBIN 32.6 pg (25-34); MEAN CORPUSCULAR HGB CONC 36.4 g/dl (32-36); MEAN PLATELET VOLUME 9.4 fL (7.4-10.4); MONO % 8.8 %; MONO ABS # 0.92 K/uL (0.11-0.59); NEUT % 78.5 %; NEUT ABS # 8.18 K/uL (1.4-6.5); PLATELET COUNT 160 K/uL (130-400); RED CELL DISTRIBUTION WIDTH CV 13.6 % (11.5-14.5); RED CELL DISTRIBUTION WIDTH SD 44.5 fL (36.4-46.3); WHITE BLOOD COUNT 10.42 K/uL (4.8-10.8)
[2017-03-15 07:24] VITALS: BP 116/71; TEMP 37.2; O2SAT 95
[2017-03-15 07:32] LABS: ALBUMIN 2.8 gm/dl (3.4-5.0); CREATININE 1.36 mg/dl (0.60-1.40); POTASSIUM 3.5 mmol/L (3.5-5.1)
[2017-03-15 07:37] LABS: PHOSPHORUS 2.5 mg/dl (2.5-4.9); TOTAL PROTEIN 5.6 gm/dl (6.4-8.2)
[2017-03-15] MEDS: ACETYLCYSTEINE 600 MG CAP PO SCH (07:48)
[2017-03-15] MEDS: GABAPENTIN 300 MG CAP PO SCH ×2 (07:48→20:19)
[2017-03-15] MEDS: METOPROLOL SUCC 25MG EXT REL TAB PO SCH (07:49)
[2017-03-15] MEDS: FINASTERIDE 5 MG TAB PO SCH (07:49)
[2017-03-15] MEDS: MULTIVITAMIN TAB PO SCH (07:50)
[2017-03-15] MEDS: CIPROFLOXACIN / D5W 400 MG in PREMIXED IN D5W 200 ML IV SCH ×2 (07:50→20:18)
[2017-03-15] MEDS: SODIUM CHLORIDE 0.9% 1000ML 1,000 ML IV SCH ×2 (07:51→20:18)
[2017-03-15] MEDS: ONDANSETRON INJ 2 MG/ML 2 ML VIAL IV PRN (07:56)
--- NOTE | 2017-03-15 08:00 | NUR ---
Pt resting in bed. Denies any abdominal pain but c/o headache. Abdomen soft and nontender. Pt given am mediations then c/o nausea afterward. Zofran given. Pt using call malik to ring for assistance to and from restroom. VS stable. classroom monitor NSR. Voids in toilet.
[2017-03-15] MEDS ORDERED: PANTOprazole SOD 40 MG TAB PO SCH (09:00)
--- NOTE | 2017-03-15 10:54 | NUR ---
Pt has had 2 moderate liquid bright red bloody BM's since 0700.
[2017-03-15 11:43] VITALS: BP 136/76; PULSE 78; TEMP 36.9; O2SAT 95
--- NOTE | 2017-03-15 11:55 | NUR ---
RD screened pt d/t diagnosis of hemorrhagic colitis, however upon chart review that diagnosis was unlikely. According to imaging, pt has colitis (more likely infectious in nature). He is currently NPO. Meds/labs reviewed. Nutrition score = 3 (adequate) on business risk analyst Faustino scale. When medically indicated, advance diet as tolerated to Low Fiber & consult RD PRN.
--- NOTE | 2017-03-15 14:09 | Hospitalist Progress Note ---
Hospitalist Progress Note Date of Service Mar 15, 2017. (Velia Alvarenga PA-C) Subjective Pt evaluation today including: conversation w/ patient, conversation w/ family , physical exam, chart review, lab review, review of studies, review of inpatient medication list Patient seen and evaluated. Continues to have multiple BMs with BRBPR. Continues to remains hemodynamically stable. Reports known history of hemorrhoids but states he normally does not have issue with this. Denies other GI issues. [facility] but does report being seen by Dr. Quinn and consult changed. However, given hemodynamically stable and findings of acute colitis. Do not anticipate in-hospital scope but would appreciate further recommendations for GI. Continues to have intermittent lower quadrant abdominal pain that feels cramping in quality. No acute abdomen and currently no pain with deep palpation on exam. Constitutional: No fever, No chills Respiratory: No shortness of breath Cardiovascular: No chest pain Abdomen: + pain (lower quadrants - intermittent - cramping), + nausea, + GI bleeding (BRBPR), No vomiting Musculoskeletal: No swelling, No calf pain Male : No dysuria (Velia Alvarenga PA-C) Medications Current Inpatient Medications Medications (Trade) Dose Ordered Sig/Avery Route Start Time Stop Time Status Last Admin Dose Admin Ioversol (Optiray 320) 100 ml UD PRN IV 03/14/17 15:00 03/18/17 14:59 Sodium Chloride 1,000 ml @ 80 mls/hr [id number] IV 03/14/17 19:49 04/13/17 19:48 03/15/17 07:51 80 MLS/HR Acetaminophen (Tylenol Tab) 650 mg Q4H PRN PO 03/14/17 20:00 04/13/17 19:59 03/15/17 07:47 650 MG Al Hydrox/Mg Hydrox/Simethicone (Maalox Max Susp) 15 ml Q4H PRN PO 03/14/17 20:00 04/13/17 19:59 Magnesium Hydroxide (Milk Of Magnesia Susp) 30 ml Q12H PRN PO 03/14/17 20:00 04/13/17 19:59 Zolpidem Tartrate (Ambien Tab) 5 mg HSZ PRN PO 03/14/17 20:00 04/13/17 19:59 Ondansetron HCl (Zofran Inj) 4 mg Q6H PRN IV 03/14/17 20:00 04/13/17 19:59 03/15/17 07:56 4 MG Morphine Sulfate (MoRPHine SULFATE INJ) 2 mg Q4H PRN IV 03/14/17 20:00 03/28/17 19:59 03/15/17 12:17 2 MG Polyethylene (Miralax Powder Packet) 17 gm DAILY PRN PO 03/14/17 20:00 04/13/17 19:59 Ciprofloxacin/ Dextrose 400 mg/ Prmx 200 ml @ 100 mls/hr Q12 IV 03/14/17 21:00 03/24/17 20:59 03/15/17 07:50 100 MLS/HR Metronidazole 500 mg/Prmx 100 ml @ 100 mls/hr Q8H IV 03/14/17 20:00 03/24/17 19:59 03/15/17 11:05 100 MLS/HR Atorvastatin Calcium (Lipitor Tab) 20 mg HS PO 03/14/17 21:00 04/13/17 20:59 03/14/17 21:16 20 MG Finasteride (Proscar Tab) 5 mg QAM PO 03/15/17 09:00 04/14/17 08:59 03/15/17 07:49 5 MG Gabapentin (Neurontin Cap) 300 mg BID PO 03/14/17 21:00 04/13/17 20:59 03/15/17 07:48 300 MG Metoprolol Succinate (Toprol Xl Tab) 25 mg DAILY PO 03/15/17 09:00 04/14/17 08:59 03/15/17 07:49 25 MG Multivitamins (Multivitamin Tab) 1 tab QAM PO 03/15/17 09:00 04/14/17 08:59 03/15/17 07:50 1 TAB Pantoprazole Sodium (Protonix Tab) 40 mg QAM PO 03/16/17 09:00 04/14/17 08:59 (Velia Alvarenga PA-C) Objective Vital Signs Date Time Temp Pulse Resp B/P (MAP) Pulse Ox O2 Delivery O2 Flow Rate FiO2 03/15/17 12:00 Room Air 03/15/17 11:43 36.9 78 19 136/76 (96) 95 Room Air 03/15/17 08:00 Room Air 03/15/17 07:24 37.2 18 116/71 (86) 95 Room Air 03/15/17 04:00 Room Air 03/15/17 03:12 37.0 82 18 116/66 (83) 94 Room Air 03/14/17 23:59 Room Air 03/14/17 23:59 Room Air 03/14/17 23:49 37.0 97 18 121/77 (92) 94 Room Air 03/14/17 20:25 37.1 93 18 153/77 97 Room Air 03/14/17 20:10 109 12 126/83 96 03/14/17 19:18 109 12 126/83 96 Room Air 03/14/17 18:03 92 03/14/17 17:13 95 18 159/98 98 Room Air 03/14/17 14:55 77 16 167/95 96 Room Air 03/14/17 13:59 75 (Velia Alvarenga, PA-C) Physical Exam General Appearance: WD/WN Eyes: sclerae normal ENT: hearing grossly normal Neck: supple, no JVD, trachea midline Respiratory/Chest: lungs clear, normal breath sounds, no respiratory distress, no accessory muscle use Cardiovascular: regular rate, rhythm, no gallop, no murmur Abdomen: normal bowel sounds, non tender, soft Extremities: no pedal edema, no calf tenderness Neurologic/Psychiatric: alert, oriented x 3 Skin: normal color, warm/dry (Velia Alvarenga, PA-C) Laboratory Results Last 24 Hours Test 03/14/17 14:00 03/14/17 15:04 03/15/17 06:43 03/15/17 08:50 White Blood Count 11.02 K/uL 10.42 K/uL Red Blood Count 5.02 M/uL 4.42 M/uL Hemoglobin 16.3 g/dL 14.4 g/dL Hematocrit 44.8 % 39.6 % Mean Corpuscular Volume 89.2 fL 89.6 fL Mean Corpuscular Hemoglobin 32.5 pg 32.6 pg Mean Corpuscular Hemoglobin Concent 36.4 g/dl 36.4 g/dl Platelet Count 201 K/uL 160 K/uL Mean Platelet Volume 9.7 fL 9.4 fL Neutrophils (%) (Auto) 87.7 % 78.5 % Lymphocytes (%) (Auto) 6.6 % 12.0 % Monocytes (%) (Auto) 5.3 % 8.8 % Eosinophils (%) (Auto) 0.1 % 0.4 % Basophils (%) (Auto) 0.1 % 0.1 % Neutrophils # (Auto) 9.67 K/uL 8.18 K/uL Lymphocytes # (Auto) 0.73 K/uL 1.25 K/uL Monocytes # (Auto) 0.58 K/uL 0.92 K/uL Eosinophils # (Auto) 0.01 K/uL 0.04 K/uL Basophils # (Auto) 0.01 K/uL 0.01 K/uL RDW Standard Deviation 43.7 fL 44.5 fL RDW Coefficient of Variation 13.4 % 13.6 % Immature Granulocyte % (Auto) 0.2 % 0.2 % Immature Granulocyte # (Auto) 0.02 K/uL 0.02 K/uL Prothrombin Time 10.2 SECONDS Prothromb Time International Ratio 1.0 Activated Partial Thromboplast Time 24.4 SECONDS Partial Thromboplastin Ratio 0.9 Sodium Level 140 mmol/L 141 mmol/L Potassium Level 3.3 mmol/L 3.5 mmol/L Chloride Level 104 mmol/L 106 mmol/L Carbon Dioxide Level 28 mmol/L 27 mmol/L Anion Gap 9.0 mmol/L 8.0 mmol/L Blood Urea Nitrogen 17 mg/dl 16 mg/dl Creatinine 1.43 mg/dl 1.36 mg/dl Est Creatinine Clear Calc Drug Dose 38.2 ml/min 40.2 ml/min Estimated GFR () 54.7 58.2 Estimated GFR (Non- 47.2 50.2 BUN/Creatinine Ratio 12.2 11.9 Random Glucose 108 mg/dl 111 mg/dl Calcium Level 8.7 mg/dl 8.0 mg/dl Magnesium Level 1.8 mg/dl 1.9 mg/dl Total Bilirubin 0.6 mg/dl 0.7 mg/dl Direct Bilirubin 0.1 mg/dl Aspartate Amino Transf (AST/SGOT) 35 U/L 21 U/L Alanine Aminotransferase (ALT/SGPT) 41 U/L 29 U/L Alkaline Phosphatase 110 U/L 87 U/L Total Protein 7.3 gm/dl 5.6 gm/dl Albumin 3.8 gm/dl 2.8 gm/dl Lipase 138 U/L Urine Color YELLOW Urine Appearance CLEAR Urine pH 5.5 Urine Specific [place] 1.022 Urine Protein NEG Urine Glucose (UA) NEG Urine Ketones NEG Urine Occult Blood NEG Urine Nitrite NEG Urine Bilirubin NEG Urine Urobilinogen NEG Urine Leukocyte Esterase NEG Lactic Acid Level 1.6 mmol/L Phosphorus Level 2.5 mg/dl Globulin 2.8 gm/dl Albumin/Globulin Ratio 1.0 Test 03/15/17 12:20 Hemoglobin 15.0 g/dL Hematocrit 41.0 % (Velia Alvarenga PA-C) Assessment and Plan 76 years old man with past medical history of multiple surgeries in his back, hypertension presented to the ED with lower abdominal pain, CAT scan imaging suggestive of colitis, multiple bloody bowel movements with stable hemoglobin. Suspect Acute Infectious Colitis with Lower GI Bleed/BRBPR - Hemorrhoidal? Related to Colitis? - CT Abd/Pelvis supporting infectious colitis and less like ischemic; pain seems to be improving and intermittent with cramping sensation - continues to have bloody bowel movements but hemoglobin and vital signs remained stable with no indication blood transfusion - Hemoglobin is currently 15 - Ciprofloxacin 400 mg IV BID and Flagyl 500 mg IV Q8H - NSS at 80 mL/hour - Continue bowel rest with NPO - appreciate GI recommendations and likely will be able to start clear liquid diet HTN: - Toprol-XL 25 mg daily Progressive DJD: - CT showing signs of progression - recommend outpatient MRI for F/U DVT Prophylaxis: SCDs Code Status: FULL RESUSCITATION Disposition: - Likely need outpatient colonoscopy - appreciate recommendations from GI Continued [facility] stay due to: multiple IV medications needed Discharge planning: home (Velia Alvarenga PA-C) Reviewed: Pt Seen/Exam by Me (Rama Schwarz DO) History Pt is feeling improved overall. He did have a few bowel movements with blood in it, but states that the blood was a darker red than yesterday. 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 No hx of similar episodes prior. No chest pain or SOB. He has had no emesis with this episode. He did have [place] food but not much spice. ate same food and had no issues. Agree with HPI/ROS as noted by PAC (Rama Schwarz DO) General Appearance: WD/WN, no apparent distress Respiratory: normal breath sounds, no respiratory distress Cardiovascular: normal peripheral pulses, regular rate, rhythm Gastrointestinal: non tender, soft Extremities: non-tender, no pedal edema Neurologic/Psychiatric: alert, normal mood/affect, oriented x 3 Skin Characteristics: normal color, warm/dry (Rama Schwarz DO) Assessment/Plan Agree with plan as outlined above GIB, likely infectious colitis as per CT AP Hb stable on admission and continues to be stable Pt feels improved Cipro/flagyl Cdiff neg Stool cx pending Monitor with clears If needed, pt has seen [facility] in the past (Rama Schwarz, )
[2017-03-15 16:24] VITALS: BP 112/68; PULSE 76; TEMP 37; O2SAT 95
--- NOTE | 2017-03-15 17:00 | NUR ---
No further BM's this afternoon. Tolerated clear liquid diet without problem. Right AC PIV occluding with bending of arm. New 20g piv restarted to right forearm.
[2017-03-15] MEDS ORDERED: LAVAGE SOLUTION 4000ML PO SCH (19:15)
[2017-03-15 19:16] LABS: HEMATOCRIT 38.7 % (42-52); HEMOGLOBIN 13.6 g/dL (14.0-18.0)
[2017-03-15 19:23] VITALS: BP 137/85; PULSE 77; TEMP 37.2; O2SAT 96
--- NOTE | 2017-03-15 20:18 | NUR ---
A: Patient awake and resting in bed. Awaiting Golytely from pharmacy to start EGD/colonoscopy prep for tomorrow. Patient aware of plans and verbalized understanding. SR 80s on tele monitor. TEDs and SCDs on patient. IVF infusing. Call malik within reach. Will monitor patient.
[2017-03-15] MEDS: ATORVASTATIN 20 MG TAB PO SCH (20:19)
[2017-03-15 23:35] VITALS: BP 146/94; PULSE 89; TEMP 37; O2SAT 92
[2017-03-16] VITALS (9 sets, daily range): BP systolic 106–151; BP diastolic 68–90; PULSE 61–95; TEMP 36.5–37.1; O2SAT 94–99
--- NOTE | 2017-03-16 00:08 | NUR ---
A: Patient awake and resting in bed - still having loose, red bowel movements. Denies complaints but does have abdominal pain at times. ST 100s on tele. IVF infusing. Call malik within reach. Will frequently monitor patient.
[2017-03-16] MEDS: METRONIDAZOLE / NSS 500 MG in PREMIXED NSS 100 ML IV SCH ×3 (04:03→19:36)
--- NOTE | 2017-03-16 04:05 | NUR ---
A: Patient resting in bed - no complaints verbalized. States his bowel movements have cleared up, none witnessed by this RN. SR 70s on tele. Call malik within reach. Will monitor patient.
[2017-03-16 07:23] LABS: HEMATOCRIT 37.8 % (42-52); HEMOGLOBIN 13.3 g/dL (14.0-18.0)
[2017-03-16 07:52] LABS: CREATININE 1.4 mg/dl (0.60-1.40); POTASSIUM 3.2 mmol/L (3.5-5.1)
[2017-03-16 07:53] LABS: CALCIUM 8.1 mg/dl (8.5-10.1)
[2017-03-16] MEDS ORDERED: POTASSIUM CHLORIDE 20 MEQ TABCR PO STA (08:13)
--- NOTE | 2017-03-16 08:37 | Hospitalist Progress Note ---
Hospitalist Progress Note Date of Service Mar 16, 2017. Subjective Pt evaluation today including: conversation w/ patient, physical exam, chart review, lab review, review of studies, review of inpatient medication list Patient seen and evaluated. No acute events overnight. He reports taking as much bowel prep as he could and BRBPR and melena seem to be resolved. States his stool is clear. Reporting less frequency of "cramping" lower quadrant abdominal pain but still comes and goes. Hemoglobin has remained stable and vitals appropriate. Dr. Leblanc plans for scopes today. Constitutional: No fever, No chills Respiratory: No cough, No shortness of breath Cardiovascular: No chest pain Abdomen: + pain (intermittent lower quadrant cramping pain - frequency lessening), No nausea, No vomiting, No GI bleeding Musculoskeletal: No swelling, No calf pain Male : No dysuria Medications Current Inpatient Medications Medications (Trade) Dose Ordered Sig/Avery Route Start Time Stop Time Status Last Admin Dose Admin Ioversol (Optiray 320) 100 ml UD PRN IV 03/14/17 15:00 03/18/17 14:59 Sodium Chloride 1,000 ml @ 80 mls/hr [id number] IV 03/14/17 19:49 04/13/17 19:48 03/15/17 20:18 80 MLS/HR Acetaminophen (Tylenol Tab) 650 mg Q4H PRN PO 03/14/17 20:00 04/13/17 19:59 03/15/17 07:47 650 MG Al Hydrox/Mg Hydrox/Simethicone (Maalox Max Susp) 15 ml Q4H PRN PO 03/14/17 20:00 04/13/17 19:59 Magnesium Hydroxide (Milk Of Magnesia Susp) 30 ml Q12H PRN PO 03/14/17 20:00 04/13/17 19:59 Zolpidem Tartrate (Ambien Tab) 5 mg HSZ PRN PO 03/14/17 20:00 04/13/17 19:59 Ondansetron HCl (Zofran Inj) 4 mg Q6H PRN IV 03/14/17 20:00 04/13/17 19:59 03/15/17 07:56 4 MG Morphine Sulfate (MoRPHine SULFATE INJ) 2 mg Q4H PRN IV 03/14/17 20:00 03/28/17 19:59 03/15/17 17:16 2 MG Polyethylene (Miralax Powder Packet) 17 gm DAILY PRN PO 03/14/17 20:00 04/13/17 19:59 Ciprofloxacin/ Dextrose 400 mg/ Prmx 200 ml @ 100 mls/hr Q12 IV 03/14/17 21:00 03/24/17 20:59 03/15/17 20:18 100 MLS/HR Metronidazole 500 mg/Prmx 100 ml @ 100 mls/hr Q8H IV 03/14/17 20:00 03/24/17 19:59 03/16/17 04:03 100 MLS/HR Atorvastatin Calcium (Lipitor Tab) 20 mg HS PO 03/14/17 21:00 04/13/17 20:59 03/15/17 20:19 20 MG Finasteride (Proscar Tab) 5 mg QAM PO 03/15/17 09:00 04/14/17 08:59 03/15/17 07:49 5 MG Gabapentin (Neurontin Cap) 300 mg BID PO 03/14/17 21:00 04/13/17 20:59 03/15/17 20:19 300 MG Metoprolol Succinate (Toprol Xl Tab) 25 mg DAILY PO 03/15/17 09:00 04/14/17 08:59 03/15/17 07:49 25 MG Multivitamins (Multivitamin Tab) 1 tab QAM PO 03/15/17 09:00 04/14/17 08:59 03/15/17 07:50 1 TAB Pantoprazole Sodium (Protonix Tab) 40 mg QAM PO 03/16/17 09:00 04/14/17 08:59 Objective Vital Signs Date Time Temp Pulse Resp B/P (MAP) Pulse Ox O2 Delivery O2 Flow Rate FiO2 03/16/17 07:16 37.1 78 20 137/77 (97) 94 Room Air 03/16/17 04:05 Room Air 03/16/17 03:28 37.0 95 18 106/68 (81) 95 Room Air 03/16/17 00:08 Room Air 03/15/17 23:35 37.0 89 19 146/94 (111) 92 Room Air 03/15/17 20:18 Room Air 03/15/17 19:23 37.2 77 18 137/85 (102) 96 Room Air 03/15/17 16:24 37.0 76 20 112/68 (83) 95 Room Air 03/15/17 16:00 Room Air 03/15/17 12:00 Room Air 03/15/17 11:43 36.9 78 19 136/76 (96) 95 Room Air Physical Exam General Appearance: WD/WN, no apparent distress Eyes: sclerae normal ENT: hearing grossly normal Neck: supple, no JVD, trachea midline Respiratory/Chest: lungs clear, normal breath sounds, no respiratory distress, no accessory muscle use Cardiovascular: regular rate, rhythm, no gallop, no murmur Abdomen: normal bowel sounds, non tender, soft Extremities: no pedal edema, no calf tenderness Neurologic/Psychiatric: alert, oriented x 3 Skin: normal color, warm/dry Laboratory Results Last 24 Hours Test 03/15/17 08:50 03/15/17 12:20 03/15/17 19:03 03/16/17 07:11 Hemoglobin 15.0 g/dL 13.6 g/dL 13.3 g/dL Hematocrit 41.0 % 38.7 % 37.8 % Sodium Level 143 mmol/L Potassium Level 3.2 mmol/L Chloride Level 107 mmol/L Carbon Dioxide Level 27 mmol/L Anion Gap 9.0 mmol/L Blood Urea Nitrogen 10 mg/dl Creatinine 1.40 mg/dl Est Creatinine Clear Calc Drug Dose 39.0 ml/min Estimated GFR () 56.2 Estimated GFR (Non- 48.5 BUN/Creatinine Ratio 7.3 Random Glucose 104 mg/dl Calcium Level 8.1 mg/dl Assessment and Plan 76 years old man with past medical history of multiple surgeries in his back, hypertension presented to the ED with lower abdominal pain, CAT scan imaging suggestive of colitis, multiple bloody bowel movements with stable hemoglobin. Suspect Acute Infectious Colitis with Lower GI Bleed/BRBPR - Hemorrhoidal? Related to Colitis? - CT Abd/Pelvis supporting infectious colitis and less like ischemic; pain seems to be improving and intermittent with cramping sensation - bloody BMs improving and hemoglobin has remained stable without need for transfusion - Hemoglobin is currently 13.3 - Ciprofloxacin 400 mg IV BID and Flagyl 500 mg IV Q8H - NSS at 80 mL/hour - NPO for colonoscopy but likely resume clear liquids pending scope - GI following - plan for EGD/Colonoscopy later today HTN: - Toprol-XL 25 mg daily Progressive DJD: - CT showing signs of progression - recommend outpatient MRI for F/U DVT Prophylaxis: SCDs Code Status: FULL RESUSCITATION Disposition: - D/C pending clinical improvement and GI intervention - possible D/C next 1-2 days Continued [facility] stay due to: multiple IV medications needed Discharge planning: home
[2017-03-16] MEDS: MULTIVITAMIN TAB PO SCH (08:41)
[2017-03-16] MEDS: METOPROLOL SUCC 25MG EXT REL TAB PO SCH (08:41)
[2017-03-16] MEDS: GABAPENTIN 300 MG CAP PO SCH ×2 (08:41→21:14)
[2017-03-16] MEDS: PANTOprazole SOD 40 MG TAB PO SCH (08:41)
[2017-03-16] MEDS: FINASTERIDE 5 MG TAB PO SCH (08:41)
[2017-03-16] MEDS: CIPROFLOXACIN / D5W 400 MG in PREMIXED IN D5W 200 ML IV SCH ×2 (08:41→21:14)
--- NOTE | 2017-03-16 08:45 | NUR ---
A: Pt resting in bed. No complaints. Alert and oriented x4. Vss. Normal sinus on monitor. Denies chest pain or shortness of breath. Minimal assist. IV fluids infusing. Call malik within reach. Encouraged to ring for assistance. Will continue to monitor.
--- NOTE | 2017-03-16 09:13 | GASTROINTESTINAL CONSULTATION ---
DATE OF CONSULTATION: 03/15/2017 DATE OF CONSULTATION: 03/15/2017 CHIEF COMPLAINT: Rectal bleeding, nausea, abdominal discomfort. HISTORY OF PRESENT ILLNESS: Mr. Wiggins is a 76-year-old male for which we are asked to see him regarding lower gastrointestinal bleeding. The patient has a history of multiple back surgeries and developed acute onset of lower abdominal pain for which he was seen in the Emergency Room. The patient was discharged on citrate of magnesia; however, he presented with 3 bloody bowel movements and vomited on 2 occasions. The emesis was clear without coffee grounds, blood or clots. There was no chest pain or shortness of breath associated with his symptoms. Because the patient was reevaluated in the Emergency Room and CT scan suggested thickening of the descending colon region that may suggest acute colitis. The patient did report a colonoscopy by Dr. Quinn in 2014 without any relevant findings by his recollection. PAST MEDICAL HISTORY: Includes hypertension, shoulder replacement, several back surgeries for which he deals with chronic lower back pain. He also has chronic kidney disease stage III. FAMILY HISTORY: Remarkable for cancer, heart disease and hypertension. SOCIAL HISTORY: The patient denies tobacco or alcohol use. He is and retired. ALLERGIES: At home include doxazosin, oxaprozin and terazosin. HOME MEDICATIONS: Include aspirin, Lipitor, calcium carbonate, Coenzyme Q, Proscar, gabapentin, hydrochlorothiazide, losartan, Lopressor, multivitamins, omega 3 fatty acids, omeprazole 20 mg daily, polyethylene glycol, MiraLax for occasional constipation. REVIEW OF SYSTEMS: Otherwise noncontributory based on 13-point exam except for mentioned above. The patient did not report significant diarrhea with any of these symptoms. There was no melena described. The patient denied any fevers, shaking chills or significant abdominal distention. The review of systems otherwise normal based on 13-point exam except for mentioned above. PHYSICAL EXAMINATION: VITAL SIGNS: His admission vital signs showed afebrile 36.5, blood pressure 138/93, respirations 22, heart rate 64 and 98% on room air. GENERAL: At this time the patient is resting comfortably in bed. The patient is awake, alert and oriented x3. HEAD, EYES, EARS, NOSE, AND THROAT: Sclerae are anicteric, conjunctiva moist. Oral mucosa moist. Normocephalic, atraumatic. Normal range of motion of the neck. NECK: Normal range of motion in all extremities. HEART: Normal S1, S2. LUNGS: Clear to auscultation without rales, rhonchi or wheezes. There are no rashes. ABDOMEN: Soft. Mildly tender in the left side of the abdomen without rebound or guarding. There are positive bowel sounds although slightly diminished. There are no abdominal bruits or masses. I do not appreciate any significant abdominal wall defects. EXTREMITIES: Without clubbing, cyanosis or edema. There are no abdominal bruits. There is no evidence for ascites or shifting dullness. LABORATORY STUDIES: On admission, white count 11.0, hemoglobin 16.3, MCV 89, platelets 201,000. INR is 1.0 with normal PTT. BUN and creatinine shows potassium of 3.3, BUN 17, creatinine 1.43. Liver tests are all normal, total bilirubin 0.6, direct 0.1, AST 35, ALT 41, alkaline phosphatase 110, albumin 3.8, lipase 138. UA shows no evidence for acute urinary tract infection. During his hospital ER visit yesterday the patient was found to be C. diff negative with pending stool cultures for routine organisms. The patient's imaging studies on 03/14/2017 at 2:30 p.m. revealed features that suggest wall thickening of the descending colon with mild pericolonic inflammatory changes consistent with colitis . Infectious etiology is suspected but ischemic is also in the differential although considered less likely. There was also luminal fluid noted. There is also fatty appearing liver, chronic bladder outlet obstruction secondary to prostatomegaly and degenerative changes in L3 and L4. The patient's laboratory studies showed a slight decrease in hemoglobin through last night at which point it went from 16.3 down to 13.6. Giardia and norovirus are pending. From the earlier visit in the ER there was no evidence for Salmonella, Shigella, Campylobacter or E. coli Shiga toxin. There was no C. diff and fecal white blood cell smear did show many fecal white blood cells with heavy mixed hoang. IMPRESSION AND PLAN: Differential diagnosis may still include an infectious etiology, although I believe ischemic may be more likely for the patient. The patient also had symptoms accompanied with nausea and some vomiting, although this was not hematemesis or coffee ground emesis. Nevertheless, I believe it is reasonable to exclude an upper source as some of the stools that he described was dark, although not quite melena. The patient is agreeable to bidirectional endoscopy and we will plan for this on Tuesday. Will perform an upper endoscopy and colonoscopy to assess these findings. The patient will ago a bowel prep Tuesday. The patient will be n.p.o. after midnight except meds and sips of water for that purpose. All questions answered. Further recommendations to follow. Thank you for allowing me to participate in this pleasant gentleman's care.
[2017-03-16] MEDS: SODIUM CHLORIDE 0.9% 1000ML 1,000 ML IV SCH ×2 (10:12→21:16)
--- NOTE | 2017-03-16 12:30 | NUR ---
A: Pt resting in bed. Family at bedside. No complaints. For EGD/colonoscopy this afternoon. Remains normal sinus on monitor. Denies chest pain or shortness of breath. Call malik within reach. Encouraged to ring for assistance. Will continue to monitor.
--- NOTE | 2017-03-16 14:06 | History & Physical Bridge Note ---
H&P Re-Evaluation Bridge Note: I have examined the patient, reviewed the History & Physical and in the interval since the performance of the History & Physical I have noted the following changes of clinical significance: No changes noted
--- NOTE | 2017-03-16 14:22 | NUR ---
A: Pt to GI lab for EGD/colonoscopy at this time.
--- NOTE | 2017-03-16 15:38 | GI REPORT ---
Procedure Date: 03/16/2017 2:57 PM Procedure: Small bowel enteroscopy Indications: Unexplained epigastric abdominal distress/pain, Unexplained abdominal distress/pain in the left upper quadrant, Unexplained periumbilical abdominal distress/pain, Melena, Nausea, Nausea with vomiting Medicines: Propofol per Anesthesia Complications: No immediate complications. Estimated blood loss: None. Estimated Blood Loss: Estimated blood loss: none. Procedure: Pre-Anesthesia Assessment: - Prior to the procedure, a History and Physical was performed, and patient medications and allergies were reviewed. The patient's tolerance of previous anesthesia was also reviewed. The risks and benefits of the procedure and the sedation options and risks were discussed with the patient. All questions were answered, and informed consent was obtained. Prior Anticoagulants: The patient has taken no previous anticoagulant or antiplatelet agents. ASA Grade Assessment: III - A patient with severe systemic disease. After reviewing the risks and benefits, the patient was deemed in satisfactory condition to undergo the procedure. After obtaining informed consent, the endoscope was passed under direct vision. Throughout the procedure, the patient's blood pressure, pulse, and oxygen saturations were monitored continuously. The scope was introduced through the mouth, and advanced to the mid-jejunum. After obtaining informed consent, the endoscope was passed under direct vision. Throughout the procedure, the patient's blood pressure, pulse, and oxygen saturations were monitored continuously.The small bowel enteroscopy was accomplished without difficulty. The patient tolerated the procedure well. Findings: The examined esophagus was normal. A widely patent and non-obstructing Schatzki ring (acquired) was found at the gastroesophageal junction. A medium-sized hiatal hernia was found. The proximal extent of the gastric folds (end of tubular esophagus) was 37 cm from the incisors. The hiatal narrowing was 40 cm from the incisors. The Z-line was 37 cm from the incisors. The entire examined stomach was normal. Retained gastric contents are not identified on this exam. There was no evidence of significant pathology in the entire examined duodenum. There was no evidence of significant pathology in the proximal jejunum, in the mid-jejunum and at 150 cm (from the incisors). The cardia and gastric fundus were normal on retroflexion. Impression: - Normal esophagus. - Widely patent and non-obstructing Schatzki ring. - Medium-sized hiatal hernia. - Normal stomach. - Normal examined duodenum. - The examined portion of the jejunum was normal. - No specimens collected. Onesimo Inverso, MD Onesimo Inverso, MD 03/16/2017 3:37:59 PM This report has been signed electronically. Note Initiated On: 03/16/2017 2:57 PM I attest to the content of the Intraoperative Record and orders documented therein, exceptions below
[2017-03-16] MEDS ORDERED: PROPOFOL IV EMULSION 10 MG/ML 20 ML VIAL IV ONE (15:42)
[2017-03-16] MEDS ORDERED: LIDOCAINE HCL 2% 2 ML VIAL (20MG/ML) ONE (15:42)
--- NOTE | 2017-03-16 15:50 | Anesthesiology Progress Note ---
Anesthesia Post Op Note Date & Time Mar 16, 2017 at 15:50 Vital Signs Pain Intensity: 5.0 Vital Signs Past 12 Hours Date Time Temp Pulse Resp B/P (MAP) Pulse Ox O2 Delivery O2 Flow Rate FiO2 03/16/17 15:35 82 20 113/77 (89) 94 Room Air 03/16/17 14:29 36.9 82 16 127/71 (89) 96 Room Air 03/16/17 12:30 Room Air 03/16/17 10:51 36.8 79 20 127/80 (96) 94 Room Air 03/16/17 08:45 Room Air 03/16/17 07:16 37.1 78 20 137/77 (97) 94 Room Air 03/16/17 04:05 Room Air Notes Mental Status: alert / awake / arousable, participated in evaluation Pt Amnestic to Procedure: Yes Nausea / Vomiting: adequately controlled Pain: adequately controlled Airway Patency, RR, SpO2: stable & adequate BP & HR: stable & adequate Hydration State: stable & adequate Anesthetic Complications: no major complications apparent
--- NOTE | 2017-03-16 16:45 | NUR ---
A: Arrived from endoscopy via wheelchair and transport, able to stand and walk into room, A&O x4, bilateral clear lungs on RA, abdomen nontender with hypoactive bowel sounds, reported lower back pain 5/10, applied quality assurance monitor, called for a diet change
[2017-03-16 19:18] LABS: HEMATOCRIT 38.5 % (42-52); HEMOGLOBIN 13.3 g/dL (14.0-18.0)
[2017-03-16] MEDS: ATORVASTATIN 20 MG TAB PO SCH (21:14)
--- NOTE | 2017-03-17 | NUR ---
A. Patient assessed, resting in bed. He is AAOx4, pleasant and cooperative. He is denying any chest or abdominal pain, SOB or dizziness. He is reporting mild back pain, requesting Morphine, takes [place] at home. VSS. NSR with HR in 70s. Tolerating liquids, continues to have liquid BMs s/p colonoscopy. Voiding in urinal. SCDs on. IV intact with IVF. He was instructed not to get up without staff present. Call malik within reach.
[2017-03-17] MEDS: MoRPHine SULFATE 2 MG/ML CARP IV PRN ×2 (00:36→17:28)
[2017-03-17] MEDS: METRONIDAZOLE / NSS 500 MG in PREMIXED NSS 100 ML IV SCH ×2 (03:53→11:42)
--- NOTE | 2017-03-17 04:00 | NUR ---
A. Patient reassessed, resting in bed. No changes at this time. He is denying any needs or complaints. VSS. NSR. Voiding in urinal. IV intact with IVF. Repositioning on own. No recent BM. SCDs on. He was reminded to call if needing anything.
[2017-03-17 04:30] VITALS: BP 112/68; PULSE 73; TEMP 36.7; O2SAT 95
[2017-03-17 07:15] VITALS: BP 126/76; PULSE 71; TEMP 36.7; O2SAT 94
[2017-03-17 07:20] LABS: HEMATOCRIT 34.3 % (42-52); HEMOGLOBIN 11.8 g/dL (14.0-18.0)
[2017-03-17 07:44] LABS: CALCIUM 7.9 mg/dl (8.5-10.1); CREATININE 1.35 mg/dl (0.60-1.40); POTASSIUM 3.5 mmol/L (3.5-5.1)
[2017-03-17] MEDS: MULTIVITAMIN TAB PO SCH (07:47)
[2017-03-17] MEDS: METOPROLOL SUCC 25MG EXT REL TAB PO SCH (07:47)
[2017-03-17] MEDS: GABAPENTIN 300 MG CAP PO SCH ×2 (07:47→21:15)
[2017-03-17] MEDS: PANTOprazole SOD 40 MG TAB PO SCH (07:47)
[2017-03-17] MEDS: FINASTERIDE 5 MG TAB PO SCH (07:48)
[2017-03-17] MEDS: CIPROFLOXACIN / D5W 400 MG in PREMIXED IN D5W 200 ML IV SCH (07:48)
--- NOTE | 2017-03-17 08:10 | NUR ---
A: Pt sitting up in bed eating breakfast upon assessment. Alert and oriented x4. Vss. No complaints. Normal sinus on monitor. Denies chest pain or shortness of breath. Denies any bloody BM's. Call malik within reach. Encouraged to ring for assistance. Will continue to monitor.
[2017-03-17] MEDS ORDERED: SODIUM CHLORIDE 0.9% 500ML 500 ML IV SCH (09:30)
[2017-03-17] MEDS ORDERED: OPTIRAY 320 IV PRN (09:45)
--- NOTE | 2017-03-17 11:25 | DIAGNOSTIC IMAGING REPORT ---
ANGIO ABD/PELVIS WITH CONTRAST CLINICAL HISTORY: Ischemic colitis. COMPARISON STUDY: CT of the abdomen and pelvis March 14, 2017. TECHNIQUE: Helical axial images of the abdomen and pelvis were obtained during arterial phase following intravenous injection of 119 cc Optiray 320 IV. Sagittal and coronal reconstructions were viewed as well as maximal intensity projections on an independent 3-D workstation. FINDINGS: Bilateral lower lobe opacities reflect atelectasis. The heart is mildly enlarged. A left adrenal nodule is unchanged since CT of June 15, 2005. This reflects an adenoma. A 1.8 cm left renal lesion was shown to reflect a cyst on renal ultrasound January 26, 2017. There is persistent moderate wall thickening of the splenic flexure and descending colon with pericolonic infiltration and fluid. There is no free air, pneumatosis or portal venous gas. No biliary or pancreatic ductal dilatation is noted. The caliber of the abdominal aorta is normal. There is mild plaque within the abdominal aorta and branch vessels without stenosis. There is no dissection within the abdominal aorta. The celiac axis, superior mesenteric artery and inferior mesenteric artery are patent. Prostate is mildly enlarged. Postoperative findings within the spine are noted. There is retrolisthesis of L3 on L4 with endplate irregularity which is chronic. IMPRESSION: 1. Patent mesenteric vessels. Mild atherosclerotic plaque within the abdominal aorta and major branch vessels without stenosis. 2. Persistent moderate wall thickening of the splenic flexure and descending colon with pericolonic infiltration. This reflects a colitis. This distribution favors ischemic colitis. An infectious colitis could appear similar. No pneumatosis, free air or portal venous gas. Electronically signed by: Augustine Anne M.D. 03/17/2017 11:23 AM Dictated Date/Time: 03/17/2017 11:00 AM
--- NOTE | 2017-03-17 12:10 | NUR ---
A: Pt resting in bed. No complaints. No changes to assessment. Pt states he has had formed bowel movements with no blood. Call malik within reach. Encouraged to ring for assistance. Will continue to monitor.
[2017-03-17 12:30] VITALS: BP 132/79; PULSE 73; TEMP 36.8; O2SAT 96
--- NOTE | 2017-03-17 15:19 | Hospitalist Progress Note ---
Hospitalist Progress Note Date of Service Mar 17, 2017. Subjective Pt evaluation today including: conversation w/ patient, physical exam, chart review, lab review, review of studies, review of inpatient medication list Patient seen and evaluated. Colonoscopy confirmed ischemic colitis. Hgb did drop minimally today but is asymptomatic and no need for transfusion. CTA showed patent mesenteric vessels. Tolerating diet without issue. States he is have mild dark blood clots in his stool. Reporting no abdominal pain and states just minimal intermittent cramping. Is eager to return home. Constitutional: No fever, No chills Respiratory: No shortness of breath Cardiovascular: No chest pain Abdomen: + GI bleeding (minimal dark blood clots in stool), No pain, No nausea, No vomiting, No diarrhea, No constipation Male : No dysuria Medications Current Inpatient Medications Medications (Trade) Dose Ordered Sig/Avery Route Start Time Stop Time Status Last Admin Dose Admin Ioversol (Optiray 320) 100 ml UD PRN IV 03/14/17 15:00 03/18/17 14:59 Acetaminophen (Tylenol Tab) 650 mg Q4H PRN PO 03/14/17 20:00 04/13/17 19:59 03/15/17 07:47 650 MG Al Hydrox/Mg Hydrox/Simethicone (Maalox Max Susp) 15 ml Q4H PRN PO 03/14/17 20:00 04/13/17 19:59 Magnesium Hydroxide (Milk Of Magnesia Susp) 30 ml Q12H PRN PO 03/14/17 20:00 04/13/17 19:59 Zolpidem Tartrate (Ambien Tab) 5 mg HSZ PRN PO 03/14/17 20:00 04/13/17 19:59 Ondansetron HCl (Zofran Inj) 4 mg Q6H PRN IV 03/14/17 20:00 04/13/17 19:59 03/15/17 07:56 4 MG Morphine Sulfate (MoRPHine SULFATE INJ) 2 mg Q4H PRN IV 03/14/17 20:00 03/28/17 19:59 03/17/17 00:36 2 MG Polyethylene (Miralax Powder Packet) 17 gm DAILY PRN PO 03/14/17 20:00 04/13/17 19:59 Ciprofloxacin/ Dextrose 400 mg/ Prmx 200 ml @ 100 mls/hr Q12 IV 03/14/17 21:00 03/24/17 20:59 03/17/17 07:48 100 MLS/HR Metronidazole 500 mg/Prmx 100 ml @ 100 mls/hr Q8H IV 03/14/17 20:00 03/24/17 19:59 03/17/17 11:42 100 MLS/HR Atorvastatin Calcium (Lipitor Tab) 20 mg HS PO 03/14/17 21:00 04/13/17 20:59 03/16/17 21:14 20 MG Finasteride (Proscar Tab) 5 mg QAM PO 03/15/17 09:00 04/14/17 08:59 03/17/17 07:48 5 MG Gabapentin (Neurontin Cap) 300 mg BID PO 03/14/17 21:00 04/13/17 20:59 03/17/17 07:47 300 MG Metoprolol Succinate (Toprol Xl Tab) 25 mg DAILY PO 03/15/17 09:00 04/14/17 08:59 03/17/17 07:47 25 MG Multivitamins (Multivitamin Tab) 1 tab QAM PO 03/15/17 09:00 04/14/17 08:59 03/17/17 07:47 1 TAB Pantoprazole Sodium (Protonix Tab) 40 mg QAM PO 03/16/17 09:00 04/14/17 08:59 03/17/17 07:47 40 MG Ioversol (Optiray 320) 100 ml UD PRN IV 03/17/17 09:45 03/21/17 09:44 Objective Vital Signs Date Time Temp Pulse Resp B/P (MAP) Pulse Ox O2 Delivery O2 Flow Rate FiO2 03/17/17 12:30 36.8 73 20 132/79 (96) 96 Room Air 03/17/17 12:10 Room Air 03/17/17 08:10 Room Air 03/17/17 07:15 36.7 71 20 126/76 (93) 94 Room Air 03/17/17 04:30 36.7 73 16 112/68 (83) 95 Room Air 03/17/17 04:00 Room Air 03/16/17 23:59 Room Air 03/16/17 23:18 36.9 72 22 151/82 (105) 94 Room Air 03/16/17 20:26 36.5 73 18 149/88 (108) 96 Room Air 03/16/17 20:00 96 Room Air 03/16/17 16:45 96 Room Air 03/16/17 16:37 36.6 61 20 141/90 (107) 96 Room Air 03/16/17 16:05 75 18 120/77 (91) 97 Room Air 03/16/17 15:57 36.7 88 18 113/74 (87) 99 Room Air 03/16/17 15:50 78 18 114/62 (79) 95 Room Air 03/16/17 15:35 82 20 113/77 (89) 94 Room Air Physical Exam General Appearance: WD/WN, no apparent distress Eyes: sclerae normal ENT: hearing grossly normal Neck: supple, no JVD, trachea midline Respiratory/Chest: lungs clear, normal breath sounds, no respiratory distress, no accessory muscle use Cardiovascular: regular rate, rhythm Abdomen: normal bowel sounds, non tender, soft Extremities: no pedal edema, no calf tenderness Neurologic/Psychiatric: alert, oriented x 3 Skin: normal color, warm/dry Laboratory Results Last 24 Hours Test 03/16/17 19:06 03/17/17 07:09 Hemoglobin 13.3 g/dL 11.8 g/dL Hematocrit 38.5 % 34.3 % Sodium Level 141 mmol/L Potassium Level 3.5 mmol/L Chloride Level 110 mmol/L Carbon Dioxide Level 26 mmol/L Anion Gap 5.0 mmol/L Blood Urea Nitrogen 10 mg/dl Creatinine 1.35 mg/dl Est Creatinine Clear Calc Drug Dose 40.5 ml/min Estimated GFR () 58.7 Estimated GFR (Non- 50.6 BUN/Creatinine Ratio 7.6 Random Glucose 90 mg/dl Calcium Level 7.9 mg/dl Assessment and Plan 76 years old man with past medical history of multiple surgeries in his back, hypertension presented to the ED with lower abdominal pain, CAT scan imaging suggestive of colitis, multiple bloody bowel movements with stable hemoglobin. Acute Ischemic Colitis with Lower GI Bleed/BRBPR: IMPROVING - Colonoscopy confirmed - CTA with patent mesenteric vessels - Hemoglobin is currently 11.8 with minimal decrease but no indication for transfusion - Ciprofloxacin 500 mg BID and Flagyl 500 mg TID - GI following - appreciate further recommendations HTN: - Toprol-XL 25 mg daily Progressive DJD: - CT showing signs of progression - recommend outpatient MRI for F/U DVT Prophylaxis: SCDs Code Status: FULL RESUSCITATION Disposition: - Possible discharge later today vs tomorrow pending further intervention
[2017-03-17 15:35] VITALS: BP 143/86; PULSE 69; TEMP 36.4; O2SAT 96
[2017-03-17 19:18] LABS: HEMATOCRIT 38.1 % (42-52); HEMOGLOBIN 13.6 g/dL (14.0-18.0)
[2017-03-17 19:25] VITALS: BP 150/91; PULSE 69; TEMP 36.7; O2SAT 97
--- NOTE | 2017-03-17 20:00 | NUR ---
A: Pt transferred from [id number]. A+O X 4. VSS. Lung sounds clear on RA, denies chest pain or SOB. Independent OOB. BS+, softly distended, tender; rec'd pain medication prior to being transferred. SL in L AC and R FA, WNL. Oriented to room and call malik. Will cotinue to monitor.
--- NOTE | 2017-03-17 20:12 | GASTROENTEROLOGY PROGRESS NOTE ---
DATE: 03/17/2017 SUBJECTIVE: Chart reviewed, patient examined. The patient doing overall well, although still has some abdominal discomfort and sense of fullness. He did try a full liquid earlier today and this did not agree with him, yet a more solid food with beef and potatoes seem to do better, although he did not finish his entire meal. He has had no fever or shaking chills, hematemesis, coffee-ground emesis, melena or bright red blood per rectum. The biopsies from his colonoscopy yesterday revealed features consistent with active colitis and ischemic colitis. There was no precancerous or cancerous changes. The patient also had a CT angiography today which revealed no evidence for abnormalities in the mesenteric vessels including the celiac, SMA and JENNIFER and all are patent. There is no bile duct or pancreatic duct dilation and the caliber of the aorta is normal. LABORATORY STUDIES: Today, hemoglobin is stable at 13.6. The patient has not received any blood products. Chemistry: BUN and creatinine are 10 and 1.35, potassium 3.5. REVIEW OF SYSTEMS: Otherwise noncontributory based on 13-point exam except for mentioned above. CURRENT MEDICATIONS: Includes Cipro, Flagyl, pantoprazole, Proscar, metoprolol, Lipitor, Ambien, Zofran, p.r.n. morphine. PHYSICAL EXAMINATION: VITAL SIGNS: Today - blood pressure is 150/91, respirations 18, heart rate 69, afebrile, 36.7, and 97% on room air. GENERAL: The patient is awake, alert and oriented x3. HEENT: Sclerae anicteric, conjunctivae moist. Oral mucosa moist. HEART: Normal S1, S2. LUNGS: Clear to auscultation. ABDOMEN: Soft, without rebound or guarding. There are positive bowel sounds. There is no evidence of distention or tense abdomen. EXTREMITIES: Without edema. RECTAL: Deferred. IMPRESSION AND PLAN: The patient with ischemic colitis without evidence of vascular abnormalities in the territories to the intestinal tract. This should resolve on its own, although the patient may do better with slowly advancing the diet, eating small frequent meals. All questions answered. Will sign off at this time. If you have any questions, please do not hesitate to contact our service. Thank you for allowing us to participate in your patient's care. AMPARO
[2017-03-17] MEDS: ATORVASTATIN 20 MG TAB PO SCH (21:15)
[2017-03-17] MEDS: METRONIDAZOLE 500 MG TAB PO SCH (21:15)
[2017-03-17] MEDS: CIPROFLOXACIN 500 MG TAB PO SCH (21:15)
[2017-03-17 23:11] VITALS: BP 136/82; PULSE 66; TEMP 36.8; O2SAT 94
[2017-03-18] MEDS: MoRPHine SULFATE 2 MG/ML CARP IV PRN (00:07)
[2017-03-18] MEDS: CIPROFLOXACIN 500 MG TAB PO SCH (07:35)
[2017-03-18] MEDS: METRONIDAZOLE 500 MG TAB PO SCH ×2 (07:35→13:08)
[2017-03-18] MEDS: GABAPENTIN 300 MG CAP PO SCH (07:36)
[2017-03-18] MEDS: MULTIVITAMIN TAB PO SCH (07:36)
[2017-03-18] MEDS: PANTOprazole SOD 40 MG TAB PO SCH (07:37)
[2017-03-18] MEDS: METOPROLOL SUCC 25MG EXT REL TAB PO SCH (07:37)
[2017-03-18] MEDS: FINASTERIDE 5 MG TAB PO SCH (07:37)
[2017-03-18 07:42] VITALS: BP 152/88; PULSE 64; TEMP 36.5; O2SAT 96
[2017-03-18 08:39] LABS: CALCIUM 8.2 mg/dl (8.5-10.1); CREATININE 1.41 mg/dl (0.60-1.40); POTASSIUM 3.4 mmol/L (3.5-5.1)
--- NOTE | 2017-03-18 10:26 | NUR ---
I have been asked to arrange a PCP follow up appointment for Mr. Wiggins. The appointment information is below as it has been documented in the discharge. WORTHY "Important Appointment Information Mr. Wiggins, The following appointment has been arranged for you, Please follow up with Dr. Jesica Jacobo in Dr. Meraz's office on March at 9:10am. *If you need to reschedule this appointment please call the office at [phone]. Thank you."
[2017-03-18] MEDS ORDERED: CPR500 PO (11:54)
[2017-03-18] MEDS ORDERED: MTR500 PO (11:54)
--- NOTE | 2017-03-18 11:58 | Discharge Instructions ---
Discharge Instructions Date of Service Mar 18, 2017. Admission Reason for Admission: Ischemic Colitis Discharge Discharge Diagnosis / Problem: Ischemic colitis Discharge Goals Goal(s): Decrease discomfort, Improve function Activity Recommendations Activity Limitations: resume your previous activity . Instructions / Follow-Up Instructions / Follow-Up Medications - CIPRO: 500mg twice a day for two more days - FLAGYL: 500mg three times a day for two more days - ASPIRIN: hold for two more days, resume on 03/21/17 Ischemic colitis: found in the descending colon, splenic flexure, biopsies taken and pathology only shows ischemic colitis changes, no evidence of cancer or pre-cancerous lesions should be self limiting, resolve over the next week take Cipro and Flagyl for two more days Hemoglobin is stable, 13gm today FOLLOW UP - Dr. Meraz on 03/26 as previously scheduled Current Hospital Diet Patient's current hospital diet: AHA Diet (Heart Healthy) Discharge Diet Recommended Diet: AHA Diet (Heart Healthy) Procedures Procedures Performed: EGD, Colonoscopy with biopsy Pending Studies Studies pending at discharge: no Medical Emergencies . Who to Call and When: Medical Emergencies: If at any time you feel your situation is an emergency, please call 911 immediately. . Non-Emergent Contact Non-Emergency issues call your: Primary Care Provider Call Non-Emergent contact if: you have any medication questions . . "Provider Documentation" section prepared by Asael Culver. . VTE Core Measure Inpt VTE Proph given/why not?: Treatment not indicated [place] Drug Monitoring Program Search Results: no issues identified
[2017-03-18 13:02] VITALS: BP 152/88; PULSE 64; TEMP 36.5; O2SAT 96
--- NOTE | 2017-03-18 13:15 | NUR ---
A: MD order to discharge patient. Discharge instructions given to patient, all questions answered. Prescriptions sent electronically to preferred pharmacy by MD. Saline lock removed with catheter intact. Patient discharged to home with all belongings and discharge instructions. Patient aware of follow up appointment.
--- NOTE | 2017-03-19 08:11 | Discharge Summary ---
Discharge Summary Date of Service Mar 19, 2017. Discharge Summary Admission Date: Mar 14, 2017 at 19:54 Discharge Date: Mar 18, 2017 Discharge Disposition: Home Principal Diagnosis: Ischemic colitis in descending colon Problems/Secondary Diagnoses: Anemia HTN Immunizations: Have You Had Influenza Vaccine: Unknown History of Tetanus Vaccine?: Unknown History of Pneumococcal: Unknown History of Hepatitis B Vaccine: Unknown Procedures: Colonoscopy - ischemic colitis in descending colon, splenic flexure EGD - normal Consultations: Gastroenterology Medication Reconciliation New Medications: Ciprofloxacin (Ciprofloxacin HCl) 500 Mg Tab 500 MG PO BID, #5 TAB 0 Refills Metronidazole (Metronidazole) 500 Mg Tab 500 MG PO TID, #7 TAB 0 Refills Continued Medications: Aspirin (Aspirin Ec) 81 Mg Tab 81 MG PO QAM Atorvastatin (Lipitor) 20 Mg Tab 20 MG PO HS, TAB Calcium Carbonate-Vitamin D (Calcium 600 + D) 1 Tab Tab 1 TAB PO QAM Coenzyme Q10 (Ubidecarenone) (Co Q-10) 400 Mg Cap 1 CAP PO QAM Finasteride (Proscar) 5 Mg Tab 5 MG PO QAM, TAB Gabapentin (Neurontin) 300 Mg Cap 300 MG PO BID, CAP Hydrochlorothiazide (Hctz) 12.5 Mg Cap 12.5 MG PO DAILY, TAB Hydrocodon/Acetaminophen 5MG/300MG (Vicodin (5MG/300MG)) 1 Tab Tab 1 TAB PO Q4-6HOURS PRN for Pain, TAB Losartan Potassium (Cozaar) 100 Mg Tab 100 MG PO QAM, TAB Metoprolol Succ (Toprol Xl) (Toprol-Xl) 25 Mg Tabcr 25 MG PO DAILY, #30 TAB Multiple Vitamin (Multivitamin) 1 Tab Tab 1 TAB PO QAM for 90 Days, #90 TAB 3 Refills Merom-3 Fatty Acids (Fish Oil) 1 Cap Cap 1 CAP PO QAM Omeprazole (Prilosec) 20 Mg Capcr 20 MG PO QAM, CAP Polyethylene Glycol 3350 (Miralax) 1 Pow Pow 17 GM PO DAILY, #527 GM Discharge Exam Patient feeling better the day of discharge, better appetite, had one loose BM, no blood or clots. Less discomfort in the abdomen overall and he feels ready to go home. Review of Systems: Constitutional: No fever, No chills, No sweats, No weight loss, No weakness , No fatigue, No problem reported Eyes: No worsening of vision, No eye pain, No redness, No discharge, No diplopia, No problem reported ENT: No hearing loss, No unusual epistaxis, No nasal symptoms, No sore throat, No tinnitus, No dental problems, No trouble swallowing, No problem reported Respiratory: No cough, No sputum, No wheezing, No shortness of breath, No dyspnea on exertion, No dyspnea at rest, No hemoptysis, No problem reported Cardiovascular: No chest pain, No orthopnea, No PND, No edema, No claudication, No palpitations, No problem reported Abdomen: + diarrhea, No pain, No nausea, No vomiting, No constipation, No GI bleeding, No problem reported Musculoskeletal: No joint pain, No muscle pain, No swelling, No calf pain, No problem reported Genitourinary - Male: No hematuria, No dysuria, No urinary frequency, No urinary urgency Neurologic: No memory loss, No paralysis, No weakness, No numbness/tingling , No vertigo, No balance problems, No problem reported Psychiatric: No depression symptoms, No anhedonism, No anxiety, No insomnia , No substance abuse, No problem reported Endocrine: No fatigue, No excessive thirst, No excessive urination, No problem reported Hematologic / Lymphatic: No abnormal bleeding/bruising, No clotting problems , No swollen lymph nodes, No night sweats, No problem reported Integumentary: No rash, No itch, No new/changing skin lesions, No color change, No bleeding, No problem reported Physical Exam: General Appearance: WD/WN, no apparent distress Eyes: normal inspection, EOMI, sclerae normal ENT: normal ENT inspection, hearing grossly normal, pharynx normal Neck: supple, no adenopathy, no JVD, trachea midline Respiratory/Chest: chest non-tender, lungs clear, normal breath sounds, no respiratory distress, no accessory muscle use Cardiovascular: regular rate, rhythm, no edema, no gallop, no JVD, no murmur , normal peripheral pulses Abdomen / GI: normal bowel sounds, non tender, soft, no organomegaly Extremities: normal inspection, no calf tenderness, normal capillary refill , no pedal edema, normal range of motion, pelvis stable Neurologic/Psychiatric: vp software engineering II-XII nml as tested, no motor/sensory deficits , alert, normal mood/affect, normal reflexes, oriented x 3 Skin: normal color, warm/dry, no rash Hospital Course 76 years old man with past medical history of multiple surgeries in his back, hypertension presented to the ED with lower abdominal pain, CAT scan imaging suggestive of colitis, multiple bloody bowel movements with stable hemoglobin. Ischemic colitis causing diarrhea, some GI bleeding (bright red and clots) - Colonoscopy confirmed visualized ischemic colitis in descending colon, splenic flexure - CTA abdomen/pelvis: patent mesenteric vessels - Hemoglobin is currently 13gm, stable - Ciprofloxacin 500 mg BID and Flagyl 500 mg TID given for 5 days in hospital, will complete 2 more days - biopsies taken of colitis shows just ischemic changes, no cancerous or precancerous cells HTN: - Toprol-XL 25 mg daily Progressive DJD: - CT showing signs of progression - recommend outpatient MRI for F/U DVT Prophylaxis: SCDs Code Status: FULL RESUSCITATION d/c to home Total Time Spent: Greater than 30 minutes This includes examination of the patient, discharge planning, medication reconciliation, and communication with other providers. Discharge Instructions Please refer to the electronic Patient Visit Report (Discharge Instructions) for additional information. Follow-Up Dr. Meraz next week Additional Copies To Griffin Meraz M.D.
[2017-04-19] MEDS ORDERED: MELO-83 PO (15:09)
[2017-07-07] MEDS ORDERED: HYDR25TA4 PO (09:35)
[2017-07-07] MEDS ORDERED: CYCL10TA6 PO (09:35)
[2017-07-07] MEDS ORDERED: FINA5TAB PO (09:35)
[2017-07-07] MEDS ORDERED: HYDR-3714 PO (09:35)
[2017-07-07] MEDS ORDERED: COEN1CAP7 PO (09:35)
[2017-07-07] MEDS ORDERED: AMLO5TAB3 PO (09:35)
[2017-07-07] MEDS ORDERED: PRLSR20 PO (09:35)
== END 2017-03-18 13:15 | disposition home or self-care (01) | DRG 394 ==
LOC: C.EDB 13:27 → C.2T 19:54 → EEVIPCON 19:54 → ENRESERV 20:02 → C.MS2W 03-17 19:17
PROVIDERS: ADMIT Internal Medicine; ATTEND Internal Medicine
PROC: 0DJ08ZZ Inspection of Upper Intestinal Tract, Via Natural or Artificial Opening Endoscopic (ICD-10-PCS; principal; 2017-03-16 14:26)
DX: K55.039 Acute (reversible) ischemia of large intestine, extent unspecified (principal); K62.5 Hemorrhage of anus and rectum; I12.9 Hypertensive chronic kidney disease with stage 1 through stage 4 chronic kidney disease, or unspecified chronic kidney disease; K22.2 Esophageal obstruction; K44.9 Diaphragmatic hernia without obstruction or gangrene; N18.3 Chronic kidney disease, stage 3 (moderate); N40.0 Benign prostatic hyperplasia without lower urinary tract symptoms; Z79.82 Long term (current) use of aspirin; Z79.899 Other long term (current) drug therapy; R55 Syncope and collapse; M54.9 Dorsalgia, unspecified; G89.29 Other chronic pain; K59.03 Drug induced constipation; T40.2X5A Adverse effect of other opioids, initial encounter; E86.0 Dehydration

== ENCOUNTER → 2017-04-25 | Outpatient (CLI) | payer BC ==
[~2017-04-25] MED LIST changes: -ALPR-385 PO; -DUTOPROL PO; -DXM4 PO; -FINA5TAB4 PO; -FLX10 PO; -HYDR-5688 PO; +HYDR12.56 PO; -HYDR25TA5 PO; +MELO15TA4 PO; -POLY335019 PO
--- NOTE | 2017-04-25 13:10 | DIAGNOSTIC IMAGING REPORT ---
L VENOUS DOPP LOWER EXT UNILAT HISTORY: 76 years-old Male LT LEG PAIN/SWELLING R/O DVT` acute swelling of the left leg COMPARISON: None available TECHNIQUE: Multiple real-time sonographic images of the left lower extremity deep venous structures were obtained assessing grayscale appearance, color and spectral flow FINDINGS: There is normal flow, phasicity, compressibility and augmentation of the left lower extremity deep venous structures. IMPRESSION: No sonographic evidence of deep venous thrombosis. The above report was generated using voice recognition software. It may contain grammatical, syntax or spelling errors. Electronically signed by: Perry Navas M.D. 04/25/2017 1:09 PM Dictated Date/Time: 04/25/2017 1:08 PM
== END | disposition home or self-care (01) ==
LOC: C.ULTRBC 12:49
PROVIDERS: ATTEND Family Medicine
DX: M79.605 Pain in left leg (principal); M79.89 Other specified soft tissue disorders

== ENCOUNTER → 2017-05-05 | Day surgery (SDC) | payer BC, OTHER ==
[2017-04-19 15:10] VITALS: Ht 165.1 cm; Wt 72.7 kg
[~2017-05-05] VITALS: Ht 165.1 cm; Wt 72.7 kg
[~2017-05-05] MED LIST changes: +LIDOCAINE HCL 1% MPF 5 ML VIAL ONE; +MELO-83 PO; -MELO15TA4 PO; +SODIUM CHLORIDE 0.9% INJ 10 ML VIAL ONE
--- NOTE | 2017-05-05 14:59 | [facility] Post Operative Brief Note ---
Immediate Operative Summary Operative Date May 05, 2017. Pre-Operative Diagnosis History of lumbar fusions x 3 with new onset Left Lower Extremity radiculopathy. Post-Operative Diagnosis Same Procedure(s) Performed Caudal Epidural Steroid Injection Surgeon Dr Michel Olson Inseam Trimmer Surgeon(s) None Estimated Blood Loss 0 Findings Consistent with Post-Op Diagnosis Specimens NA Drains None Anesthesia Type Local Complication(s) none Disposition Disposition:
--- NOTE | 2017-05-05 15:01 | Discharge Instructions ---
Discharge Instructions Date of Service May 05, 2017. Visit Reason for Visit: Lumbar Radiculopathy Discharge Discharge Diagnosis / Problem: Left leg pain Discharge Goals Goal(s): Decrease discomfort, Improve function Activity Recommendations Activity Limitations: resume your previous activity Anesthesia . Post Anesthesia Instructions: If you have had General Anesthesia or IV Sedation: * Do not drive today. * Resume driving when surgeon permits. * Do not make important decisions or sign legal documents today. * Call surgeon for: 1. Temperature elevations greater than 101 degrees F. 2. Uncontrollable pain. 3. Excessive bleeding. 4. Persistent nausea and vomiting. 5. Medication intolerance (nausea, vomiting or rash). * For nausea and vomiting use only clear liquids such as: tea, soda, bouillon until nausea subsides, then gradually increase diet as tolerated. * If you have any concerns or questions, call your surgeon's office. If physician is unavailable and it is an emergency, call 911 or go to the nearest emergency room. . Diet Recommendations Recommended Home Diet: resume previous diet Procedures Procedures Performed: Caudal Epidural Steroid Injection Pending Studies Studies pending at discharge: no Medical Emergencies . Who to Call and When: Medical Emergencies: If at any time you feel your situation is an emergency, please call 911 immediately. . Non-Emergent Contact Non-Emergency issues call your: Specialist . . "Provider Documentation" section prepared by Michel Olson. .
[2017-05-05 15:25] VITALS: BP 148/91; PULSE 66; TEMP 36.6; O2SAT 99
--- NOTE | 2017-05-05 18:58 | OPERATIVE REPORT ---
DATE OF OPERATION: 05/05/2017 PREOPERATIVE DIAGNOSES: History of lumbar fusions x3, new onset of left lower extremity radiculopathy. POSTOPERATIVE DIAGNOSES: Same. PROCEDURE: Caudal epidural steroid injection under fluoroscopic guidance. INDICATIONS: The patient is a 76-year-old white male who has had stable back pain for a number of years and recently had an exacerbation following the L5 dermatomal distribution down to his left leg, presents today for an epidural steroid injection to provide him with relief. He did get some benefit with prednisone tapers x2. PHYSICAL EXAMINATION: Pleasant male, moving about slowly. He has sensitivity along the left lower extremity. Positive seated straight leg raise and heightened sensation along the left L5 nerve root. CONSENT: Verbal and written consent was obtained from the patient. Risks and benefits were reviewed. Risks include but are not limited to abscess and allergic reaction. The patient wishes to proceed. DESCRIPTION OF PROCEDURE: The patient was taken back to the special procedures room of the [facility] where he was maintained in a prone position. Backside was cleansed with Betadine x3 and a dry sterile dressing was applied. Fluoroscope was used to identify the sacral hiatus and overlying skin was anesthetized with 4 mL of lidocaine 1% with a 25-gauge 1-1/2-inch needle. A 25-gauge 3-1/2-inch spinal needle was then directed under lateral fluoroscopic guidance into the canal and advanced a good 2-1/2 inches. He then underwent injection after negative aspiration of 40 mg of Depo-Medrol and 4 mL of preservative-free sodium chloride. Injection was well tolerated. DISPOSITION: 1. The patient is taken out into the discharge recovery area. He will be discharged home once discharge criteria have been met. 2. Follow up in the [facility] office in 2-4 weeks. I attest to the content of the Intraoperative Record and any orders documented therein. Any exception s are noted below.
== END | disposition home or self-care (01) ==
LOC: X.SURG 13:41
PROVIDERS: ATTEND Physical Medicine & Rehabilitation
DX: M54.10 Radiculopathy, site unspecified (principal); Z98.1 Arthrodesis status; Z79.82 Long term (current) use of aspirin

== ENCOUNTER → 2017-06-20 | Outpatient (CLI) | payer BC ==
[~2017-06-20] MED LIST changes: -LIDOCAINE HCL 1% MPF 5 ML VIAL ONE; -SODIUM CHLORIDE 0.9% INJ 10 ML VIAL ONE
--- NOTE | 2017-06-20 15:00 | DIAGNOSTIC IMAGING REPORT ---
LUMBAR SPINE WITHOUT CLINICAL HISTORY: 76 years-old Male presenting with LOW BACK PAIN. TECHNIQUE: Multidetector CT of the lumbar spine was performed without the use of intravenous contrast. IV contrast: None. A dose lowering technique was used consistent with the principles of ALARA (as low as reasonably achievable). COMPARISON: 07/25/2016. CT DOSE (mGy.cm): The estimated cumulative dose is 706.61 mGy.cm. FINDINGS: Casting Director topogram: Unremarkable. Bilateral transpedicular screw and reshma fixation of L1-L3 with laminectomy defects of L2-L5. Retrolisthesis of L3 on L4, which measures approximately 8 mm. Interbody spacers noted at the L2-3 and L3-4 levels. Extensive endplate irregularity at the L3-4 level. These findings are unchanged since the prior exam. 4 to 5 mm of grade 1 anterolisthesis of L4 on L5 also noted. The operative levels demonstrate normal alignment. At the operative levels, no osseous spinal canal or neural foraminal narrowing is apparent. At the nonoperative levels, no osseous spinal canal or neural foraminal narrowing is apparent. No hardware complication. Incomplete osseous fusion at the operative levels. No acute fracture. Old screw tracks through the L4-S1 vertebral bodies also noted. Paraspinal soft tissues notable for atherosclerosis. Expected post surgical appearance of the operative bed without evidence of a focal fluid collection. IMPRESSION: 1. Extensive postsurgical changes of L1-L3 fusion with laminectomy defects of L2-L5. No hardware complication. 2. 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 3. Old postsurgical changes of the L4-S1 vertebral bodies. No change in alignment with persistent retrolisthesis of L3 on L4 and anterolisthesis of L4 on L5. Electronically signed by: Juan Zheng M.D. 06/20/2017 2:59 PM Dictated Date/Time: 06/20/2017 2:51 PM
== END | disposition home or self-care (01) ==
LOC: C.CTS 14:41
PROVIDERS: ATTEND Orthopaedic Surgery
DX: M54.5 Low back pain (principal); S32.009K Unspecified fracture of unspecified lumbar vertebra, subsequent encounter for fracture with nonunion; X58.XXXD Exposure to other specified factors, subsequent encounter; Z98.1 Arthrodesis status

== ENCOUNTER → 2017-06-22 | Outpatient (CLI) | payer BC ==
[2017-06-22 13:35] LABS: BLOOD UREA NITROGEN 19 mg/dl (7-18); CREATININE 1.43 mg/dl (0.60-1.40)
== END | disposition home or self-care (01) ==
LOC: C.LABBC 11:10
PROVIDERS: ATTEND Radiology Diagnostic Radiology
DX: Z01.812 Encounter for preprocedural laboratory examination (principal)

== ENCOUNTER → 2017-06-23 | Outpatient (CLI) | payer BC ==
[~2017-06-23] MED LIST changes: +GADAVIST IV PRN
--- NOTE | 2017-06-23 11:26 | DIAGNOSTIC IMAGING REPORT ---
MRI LUMBAR SPINE COMBINATION CLINICAL HISTORY: Low back pain with bilateral leg radiculopathy. Failed L3-for fusion. TECHNIQUE: Sagittal and axial T1, T2 and STIR images were obtained. Images were acquired before and after the administration of 7 cc of intravenous Gadavist. COMPARISON STUDY: CT scan dated 06/20/2017 OBSERVATIONS: The vertebral bodies and posterior elements appear intact. There is no abnormal bony signal present to suggest a marrow replacement process. There is moderate artifact secondary to spinal hardware. L1-2: There is marked narrowing of the disc and prior L1-2 fusion is suspected. There are no focal herniations. There is no spinal or foraminal stenosis. L2-3: There are postsurgical changes of a discectomy and interbody fusion. There is posterior pedicle screw fusion. There is no disc herniation. There is no spinal or foraminal stenosis. Posterior laminectomy changes are evident. L3-4: There are postsurgical changes of a discectomy and interbody fusion. There is 10 mm of retrolisthesis of L3 on L4. There are postlaminectomy changes. There is no significant spinal stenosis. There is bilateral foraminal narrowing. L4-5: There is an old superior endplate L4 compression. There are postlaminectomy changes present. There is no spinal stenosis. There is no foraminal stenosis. SCREW tracks are visualized in the L5 vertebral body and pedicles. There is a minor grade 1 spondylolisthesis of L4 on L5 L5-S1: Postlaminectomy changes are visualized. There are postsurgical changes of a prior discectomy and interbody fusion. There is no recurrent herniation. There is no spinal or foraminal stenosis. The conus medullaris and cauda equina appear normal. Postcontrast images reveal no pathologically enhancing masses. There are bilateral T2 bright renal lesions consistent with cysts IMPRESSION: 1. No significant change the preceding CT scan 2. Persistent chronic superior endplate L4 deformity 3. Stable retrolisthesis of L3 on L4 approximately 10 mm 4. Bilateral foraminal narrowing at the L3-4 level 5. No evidence of disc herniation. No evidence of spinal stenosis Electronically signed by: Laci Chandra M.D. 06/23/2017 11:25 AM Dictated Date/Time: 06/23/2017 11:15 AM
== END | disposition home or self-care (01) ==
LOC: C.MRIBC 09:42
PROVIDERS: ATTEND Orthopaedic Surgery
DX: M54.5 Low back pain (principal); S32.009K Unspecified fracture of unspecified lumbar vertebra, subsequent encounter for fracture with nonunion; X58.XXXD Exposure to other specified factors, subsequent encounter

== ENCOUNTER 2017-07-18 07:41 | Inpatient (IN) | payer BC, OTHER ==
[2017-07-07 09:37] VITALS: BMI 27.0
--- NOTE | 2017-07-07 10:15 | PAT Medication Instructions ---
Service Date Jul 07, 2017. Current Home Medication List Amlodipine (Norvasc), 5 MG PO QPM Aspirin (Aspirin Ec), 81 MG PO QAM Atorvastatin (Lipitor), 40 MG PO HS Calcium Carbonate-Vitamin D (Calcium 600 + D), 1 TAB PO QAM Coenzyme Q10 (Ubidecarenone) (Coq10), 200 MG PO QAM Cyclobenzaprine Hcl (Flexeril), 10 MG PO PRN Finasteride (Proscar), 5 MG PO QAM Gabapentin (Neurontin), 600 MG PO QPM Hydrochlorothiazide (Hctz), 25 MG PO QAM Hydrocodon/Acetaminophen 7.5MG/300MG (Vicodin Es (7.5MG/300MG)), 1-2 TAB PO QPM PRN for Pain Losartan Potassium (Cozaar), 100 MG PO QAM Metoprolol Succ (Toprol Xl) (Toprol-Xl), 25 MG PO QAM Multiple Vitamin (Multivitamin), 1 TAB PO QAM [employer] Mdl-3 Fatty Acids (Fish Oil), 1 CAP PO QAM Omeprazole (Prilosec), 20 MG PO QAM Medication Instructions For Your Scheduled Surgery - Hold the following medications 2 weeks prior to surgery: Coenzyme Q10 (Ubidecarenone) (Coq10), 200 MG PO QAM [employer] Mdl-3 Fatty Acids (Fish Oil), 1 CAP PO QAM - Hold the following medications the morning of surgery: Calcium Carbonate-Vitamin D (Calcium 600 + D), 1 TAB PO QAM Cyclobenzaprine Hcl (Flexeril), 10 MG PO PRN Finasteride (Proscar), 5 MG PO QAM Hydrochlorothiazide (Hctz), 25 MG PO QAM Losartan Potassium (Cozaar), 100 MG PO QAM Multiple Vitamin (Multivitamin), 1 TAB PO QAM - Take the following medications the morning of surgery with a sip of water: Aspirin (Aspirin Ec), 81 MG PO QAM Hydrocodon/Acetaminophen 7.5MG/300MG (Vicodin Es (7.5MG/300MG)), 1-2 TAB PO QPM PRN for Pain (if needed, can be taken up to four hours before surgery) Metoprolol Succ (Toprol Xl) (Toprol-Xl), 25 MG PO QAM Omeprazole (Prilosec), 20 MG PO QAM - Take the following medications as scheduled the night before surgery: Amlodipine (Norvasc), 5 MG PO QPM Atorvastatin (Lipitor), 40 MG PO HS Cyclobenzaprine Hcl (Flexeril), 10 MG PO PRN (if needed) Gabapentin (Neurontin), 600 MG PO QPM Hydrocodon/Acetaminophen 7.5MG/300MG (Vicodin Es (7.5MG/300MG)), 1-2 TAB PO QPM PRN for Pain (if needed) If you have any questions please call us at [phone] or [phone] or [phone]
[2017-07-07 11:15] LABS: BASO % 0.4 %; BASO ABS # 0.02 K/uL (0-0.2); EOS % 1.8 %; EOS ABS # 0.09 K/uL (0-0.5); IG# 0.01 K/uL (0.00-0.02); LYMPH ABS # 1.47 K/uL (1.2-3.4); MEAN CELL VOLUME 87.1 fL (80-100); MEAN CORPUSCULAR HEMOGLOBIN 31.1 pg (25-34); MEAN CORPUSCULAR HGB CONC 35.7 g/dl (32-36); MEAN PLATELET VOLUME 9.2 fL (7.4-10.4); MONO % 9.9 %; NEUT % 58.7 %; NEUT ABS # 2.98 K/uL (1.4-6.5); PLATELET COUNT 199 K/uL (130-400); RED CELL DISTRIBUTION WIDTH CV 13.1 % (11.5-14.5); RED CELL DISTRIBUTION WIDTH SD 41.6 fL (36.4-46.3); WHITE BLOOD COUNT 5.07 K/uL (4.8-10.8)
[2017-07-07 11:24] LABS: PTT PATIENT 26.9 SECONDS (21.0-31.0)
[2017-07-07 11:49] LABS: CALCIUM 9.5 mg/dl (8.5-10.1); CREATININE 1.45 mg/dl (0.60-1.40); POTASSIUM 3.6 mmol/L (3.5-5.1)
--- NOTE | 2017-07-17 17:33 | HISTORY & PHYSICAL EXAMINATION ---
DATE OF ADMISSION: 07/18/2017 Pre-op for tomorrow surgery. CHIEF COMPLAINT: Back and lower extremity difficulty, paresthesias. HISTORY OF PRESENT ILLNESS: Agustin is a delightful gentleman with back and lower extremity difficulty, paresthesias, numbness, tingling and significant pain. I have known him for a few years. He has had other medical issues. He has had extensive spine surgery in the past. His pain is pretty unbearable at this point in time. He has significantly compromised sitting and his gait . No bowel or bladder issues. MEDICATIONS: Include aspirin, Caltrate, CoQ10, Cozaar, fish oil, gabapentin, Lipitor, multivitamins, metoprolol XL. MEDICAL HISTORY: Includes coronary artery disease, heart disease, chronic pain, hypercholesterol, GI distress. PAST SURGICAL HISTORY: Includes that of extensive lumbar spine surgery. ALLERGIES: Negative. SOCIAL HISTORY: No smoker. No ETOH user, no drug user. REVIEW OF SYSTEMS: Reviewed. Denies blurred vision, double vision, tinnitus or vertigo. He is alert, oriented. Sensation and mentation normal. Denies chest pain, palpitations. There is no asthma, wheezing or shortness of breath. No nausea, vomiting, urgency, frequency, dysuria. He admits to back and lower extremity difficulties, mostly musculoskeletal. PHYSICAL EXAMINATION: VITAL SIGNS: Blood pressure 130/80, pulse 80, respiratory rate 16. HEENT: Pupils react to light and accommodation. Ear, nose and throat clear. CARDIAC: Normal S1, S2, no S3. No arrhythmias. LUNGS: Clear to auscultation. No rales, rhonchi, or wheezing. ABDOMEN: Soft, nontender. EXTREMITIES: Intact x4. He has knee jerk reflexes decreased. He has a slight weakness of quadriceps, slight weakness with dorsiflexion, flexion. He has a gait abnormality, difficulty plantarflexion. Slight loss of sensation, no upper motor neuron issues. IMAGES: Demonstrate degenerative scoliosis of spine, spinal stenosis of spine, disc space collapse, nerve root irritation, spondylolisthesis at 3-4 and 4-5. DISPOSITION: Includes a reconstructive spine surgery on 07/18/2017 at [facility]. It will be a revision lumbar spine 2-3, 3-4, removal of implants and decompression and fusion L3-L4, L4-L5, and L5-S1.
[2017-07-18] VITALS (10 sets, daily range): BP systolic 83–138; BP diastolic 51–87; PULSE 67–93; TEMP 36.3–36.9; O2SAT 92–100; Ht 165.1 cm; Wt 73.8 kg
[~2017-07-18] VITALS: Ht 165.1 cm; Wt 73.8 kg
[~2017-07-18 07:41] MED LIST changes: +AMLO-110 PO; +CEFAZOLIN 2000MG IV PUSH 15 ML IV SCH; -COEN1CAP40 PO; +COEN1CAP7 PO; +CYCL10TA6 PO; +FINA5TAB PO; -GADAVIST IV PRN; -HYDR-3419 PO; +HYDR-3714 PO; -HYDR12.56 PO; +HYDR25TA4 PO; +LACTATED RINGER'S 1000ML 1,000 ML IV SCH; -MELO-83 PO; +NSS 1000ML IV SCH; -OMEP20CA59 PO; +PRLSR20 PO
[2017-07-18] MEDS ORDERED: MIDAZOLAM HCL 1 MG/ML 2ML VIAL ONE (08:14)
[2017-07-18] MEDS ORDERED: FENTANYL CITRATE INJ 50 MCG/1 ML 2 ML VIAL ONE ×2 (08:15)
[2017-07-18] MEDS ORDERED: BUPIVACAINE/EPINEPHRINE 0.5% MPF 1:200,000 30 ML VIAL ONE (09:08)
[2017-07-18] MEDS ORDERED: VANCOMYCIN HCL 1000MG/20ML VIAL ONE (09:08)
[2017-07-18] MEDS ORDERED: BACITRACIN 50000 UNIT VIAL ONE (09:08)
[2017-07-18] MEDS ORDERED: THROMBIN FOR SOLN 20000 UNIT KIT ONE (09:08)
[2017-07-18] MEDS ORDERED: GELATIN SPONGE SZ 100 ONE ×2 (09:08→10:37)
[2017-07-18] MEDS ORDERED: LIDOCAINE HCL 2% 2 ML VIAL (20MG/ML) ONE (10:22)
[2017-07-18] MEDS ORDERED: PROPOFOL IV EMULSION 10 MG/ML 20 ML VIAL ONE (10:22)
[2017-07-18] MEDS ORDERED: ROCURONIUM BROMIDE 10 MG/ML 5 ML VIAL ONE ×3 (10:22→10:53)
[2017-07-18] MEDS ORDERED: ONDANSETRON INJ 2 MG/ML 2 ML VIAL ONE (10:23)
[2017-07-18] MEDS ORDERED: DEXAMETHASONE SOD INJ 4 MG/ML VIAL ONE (10:23)
[2017-07-18] MEDS ORDERED: NEOSTIGMINE METHYLSULFATE 5 MG/5 ML SYR ONE (10:24)
[2017-07-18] MEDS ORDERED: GLYCOPYRROLATE INJ 0.2 MG/ML VIAL ONE (10:24)
[2017-07-18] MEDS ORDERED: HYDROmorphone INJ 2 MG/ML SYR/VIAL IV PRN (10:45)
[2017-07-18] MEDS ORDERED: ONDANSETRON INJ 2 MG/ML 2 ML VIAL IV PRN (10:45)
[2017-07-18] MEDS ORDERED: MEPERIDINE HCL 25 MG/ML CARP IV PRN (10:45)
[2017-07-18] MEDS ORDERED: FENTANYL CITRATE INJ 50 MCG/1 ML 2 ML VIAL IV PRN (10:45)
[2017-07-18] MEDS ORDERED: EpHEDrine SULFATE INJ 50 MG/ML AMP IV PRN (10:45)
[2017-07-18] MEDS ORDERED: LABETALOL HCL IV 5 MG/ML 20ML IV PRN (10:45)
[2017-07-18] MEDS ORDERED: ATROPINE SULFATE 0.1 MG/ML 5ML SYR IV PRN (10:45)
[2017-07-18] MEDS ORDERED: HYDROmorphone INJ 2 MG/ML SYR/VIAL ONE (11:12)
[2017-07-18] MEDS ORDERED: FLOSEAL HEMOSTATIC MATRIX 10ML TOP ONE (12:08)
--- NOTE | 2017-07-18 12:08 | DIAGNOSTIC IMAGING REPORT ---
SPINE ONE VIEW, ANY LEVEL CLINICAL HISTORY: 76 years-old Male presenting with L2-S1 REVISION. TECHNIQUE: 1 fluoroscopic image(s) recorded as part of an intraoperative procedure. COMPARISON: CT from 06/20/2017. FINDINGS/IMPRESSION: Transpedicular screw and reshma fixation of L2-3 with interbody spacers at L2-3 and L3-4. Interval extension to transpedicular screw and reshma fixation of L5 with interbody spacer at L5-S1. Significant retrolisthesis of L3 on L4 with slight anterolisthesis of L4 on L5. Please see surgical report for further details. Fluoroscopy dosage (mGy): 2.24. Fluoroscopy time: 4.8 seconds. Number of fluoroscopic spot images: 0. Electronically signed by: Juan Zheng M.D. 07/18/2017 12:06 PM Dictated Date/Time: 07/18/2017 12:04 PM
--- NOTE | 2017-07-18 12:28 | [facility] Post Operative Brief Note ---
Immediate Operative Summary Operative Date Jul 18, 2017. Pre-Operative Diagnosis Demonstrate degenerative scoliosis of spine, spinal stenosis of spine, disc space collapse, nerve root irritation, spondylolisthesis at 3-4 and 4-5. Post-Operative Diagnosis Demonstrate degenerative scoliosis of spine, spinal stenosis of spine, disc space collapse, nerve root irritation, spondylolisthesis at 3-4 and 4-5. Procedure(s) Performed L1-L2, L2-L3 Removal Implants; L2-L3, L3-L4, L4-L5 Decompression and Fusion Surgeon Dr. Chritsine Metaphysicist Surgeon(s) Armen Cullen PA-C Estimated Blood Loss 250 ml Findings Consistent with Post-Op Diagnosis Specimens a. explanted hardware-spine Drains None Anesthesia Type General Complication(s) none Disposition Disposition: Recovery Room / PACU
[2017-07-18] MEDS ORDERED: SODIUM CHLORIDE 0.9% 1000ML 1,000 ML IV SCH (12:34)
[2017-07-18] MEDS ORDERED: HYDROmorphone HCL 0.5MG/ML 50 ML CASSETTE ONE (12:43)
[2017-07-18] MEDS ORDERED: LORAZEPAM INJ 1 MG in SYRINGE 0 ML IV PRN (12:45)
[2017-07-18] MEDS ORDERED: MAGNESIUM HYDROXIDE SUSP 30 ML UDC PO PRN (12:45)
[2017-07-18] MEDS ORDERED: METOCLOPRAMIDE HCL INJ 5 MG/ML 2 ML VIAL IV PRN (12:45)
[2017-07-18] MEDS ORDERED: ACETAMINOPHEN 325 MG TAB PO PRN (12:45)
[2017-07-18] MEDS ORDERED: NALOXONE HCL 0.4 MG/1 ML VIAL/CARP IV PRN (12:45)
[2017-07-18] MEDS ORDERED: DC PCA PRN (12:45)
[2017-07-18] MEDS ORDERED: PROMETHAZINE HCL INJ 12.5 MG in SODIUM CHLORIDE 0.9% 50ML 50 ML IV PRN (12:45)
[2017-07-18] MEDS ORDERED: LORAZEPAM 1 MG TAB PO PRN (12:45)
[2017-07-18] MEDS: HYDROmorphone HCL 0.5MG/ML 50 ML CASSETTE IV PRN ×3 (13:00→22:59)
[2017-07-18 13:28] LABS: HEMATOCRIT 36.2 % (42-52); HEMOGLOBIN 13.1 g/dL (14.0-18.0)
--- NOTE | 2017-07-18 13:39 | OPERATIVE REPORT ---
DATE OF OPERATION: 07/18/2017 PREOPERATIVE DIAGNOSES: 1. Spinal stenosis, lumbar spine, L3, L4, L5, three-level spinal stenosis. 2. Painful hardware, lumbar spine, L2, L3, and L4. 3. Spinal instability. 4. Degenerative scoliosis. PROCEDURE: Include; 1. Removal of an Explant to prior instrumentation from L2 down to L5. 2. Decompression laminectomy, foraminotomy, and partial facetectomy from 3 down to 5 bilaterally. 3. Instrumentation L2, L3 and L5 for scoliosis. 4. Posterolateral fusion 3-5. SURGEON: Leonel Christine DO. NUTRITION PARTNER: Armen Cullen PA-C. COMPLICATIONS: Zero. BLOOD LOSS: 250. ANESTHETIC: General. DESCRIPTION OF PROCEDURE: The patient was taken to the operating room and general intubated anesthetic provided to the patient, placed prone, prepped and draped sterile. We commenced with a skin incision, fascial incision. We came down pretty readily on to the spine. We were able to relatively easily remove the prior implants. This was pedicle screws at 2, 3 and 5 of lumbar spine. We then carefully dissected down to the dura and associated nerve roots. We carefully dissected free, I believe the S1, 5, 4, and 3 nerve roots bilaterally. We are pleased with the decompression. We had to remove a significant amount of bone and scar tissue. I then felt the patient was slightly unstable, so we instrumented the spine L2, L3 and L5 pedicle screw instrumentation of those levels. We irrigated carefully with approximately 500 mL of fluid. We bone grafted out over the transverse processes. We put Gelfoam over the dural structures. We put vancomycin deep as well. Closed fascia to fascia with #1 Vicryl suture, 2-0 in the subcuticular layer, staple done on the skin, sterile dressing applied. The patient returned to PACU improved, stable. There were no apparent complications. Sponge and needle count correct at the close. I attest to the content of the Intraoperative Record and any orders documented therein. Any exception s are noted below.
--- NOTE | 2017-07-18 13:50 | Anesthesiology Progress Note ---
Anesthesia Post Op Note Date & Time Jul 18, 2017 at 13:50 Vital Signs Pain Intensity: 0 Vital Signs Past 12 Hours Date Time Temp Pulse Resp B/P (MAP) Pulse Ox O2 Delivery O2 Flow Rate FiO2 07/18/17 13:45 71 12 93/59 98 Nasal Cannula 4 07/18/17 13:30 36.2 72 12 111/56 97 Nasal Cannula 4 07/18/17 13:20 77 12 109/65 97 Nasal Cannula 4 07/18/17 13:10 70 12 92/48 97 Nasal Cannula 4 07/18/17 13:00 73 12 99/58 98 Oxymask 10 07/18/17 12:50 66 10 103/61 95 Oxymask 10 07/18/17 12:43 66/40 07/18/17 12:41 64/35 07/18/17 12:40 36.6 67 8 53/36 95 Oxymask 10 07/18/17 08:29 36.8 68 18 138/87 95 Room Air Notes Mental Status: alert / awake / arousable, participated in evaluation Pt Amnestic to Procedure: Yes Nausea / Vomiting: adequately controlled Pain: adequately controlled Airway Patency, RR, SpO2: stable & adequate BP & HR: stable & adequate Hydration State: stable & adequate Anesthetic Complications: no major complications apparent
[2017-07-18] MEDS: SODIUM CHLORIDE 0.9% 1000ML 1,000 ML IV SCH (16:24)
[2017-07-18] MEDS: CEFAZOLIN IV 1,000 MG in SYRINGE 0 ML IV SCH (16:24)
[2017-07-18] MEDS: ONDANSETRON INJ 2 MG/ML 2 ML VIAL IV PRN (18:12)
[2017-07-18] MEDS: DEXAMETHASONE INJ 10 MG in SYRINGE 0 ML IV SCH (18:15)
[2017-07-18] MEDS: AMLODIPINE BESYLATE 5 MG TAB PO SCH (21:00)
[2017-07-18] MEDS: GABAPENTIN 300 MG CAP PO SCH (21:39)
[2017-07-18] MEDS: ATORVASTATIN 40 MG TAB PO SCH (21:40)
[2017-07-19] VITALS (7 sets, daily range): BP systolic 84–112; BP diastolic 55–70; PULSE 70–107; TEMP 36.6–37.3; O2SAT 90–95
[2017-07-19] MEDS: CEFAZOLIN IV 1,000 MG in SYRINGE 0 ML IV SCH ×2 (01:10→07:48)
[2017-07-19] MEDS: DEXAMETHASONE INJ 10 MG in SYRINGE 0 ML IV SCH ×3 (02:01→19:31)
[2017-07-19] MEDS ORDERED: NURSING VERBAL MED ORDER ONE ×3 (03:45→11:15)
[2017-07-19] MEDS: SODIUM CHLORIDE 0.9% 1000ML 1,000 ML IV SCH (04:53)
[2017-07-19] MEDS ORDERED: BISACODYL 5 MG TABEC PO PRN (06:00)
[2017-07-19] MEDS ORDERED: BISACODYL 10 MG SUPP PR PRN (06:00)
[2017-07-19] MEDS: HYDROmorphone HCL 0.5MG/ML 50 ML CASSETTE IV PRN (06:56)
--- NOTE | 2017-07-19 07:39 | Anesthesiology Progress Note ---
Anesthesia Post Op Note Date & Time July 19, 2017 at 07:39 Vital Signs Pain Intensity: 4.0 Vital Signs Past 12 Hours Date Time Temp Pulse Resp B/P (MAP) Pulse Ox O2 Delivery O2 Flow Rate FiO2 07/19/17 03:08 37.3 104 17 84/56 (65) 91 Nasal Cannula 2.0 07/18/17 23:30 98 Nasal Cannula 2.0 07/18/17 22:53 36.9 93 18 92/61 (71) 98 Nasal Cannula 2.0 07/18/17 21:30 89 88/51 (63) Room Air Notes Mental Status: alert / awake / arousable, participated in evaluation Pt Amnestic to Procedure: Yes Nausea / Vomiting: adequately controlled Pain: adequately controlled Airway Patency, RR, SpO2: stable & adequate BP & HR: stable & adequate Hydration State: stable & adequate Anesthetic Complications: no major complications apparent
[2017-07-19] MEDS: PANTOprazole SOD 40 MG TAB PO SCH (07:48)
[2017-07-19] MEDS ORDERED: OXYCODONE HCL IR 5 MG TAB (IMMEDIATE RELEASE) PO PRN (08:00)
[2017-07-19] MEDS ORDERED: OXYCODONE/ACETAMINOPHEN 5-325 TAB PO PRN ×2 (08:00)
[2017-07-19] MEDS ORDERED: HYDROmorphone INJ 2 MG/ML SYR/VIAL IV PRN ×2 (08:00)
[2017-07-19] MEDS: OMEGA-3 (PURIFIED FISH OIL) 1 GM CAP PO SCH (08:45)
[2017-07-19] MEDS: METOPROLOL SUCC 25MG EXT REL TAB PO SCH (08:48)
[2017-07-19] MEDS: LOSARTAN POTASSIUM 50 MG TAB PO SCH (08:48)
[2017-07-19] MEDS: MULTIVITAMIN TAB PO SCH (08:49)
[2017-07-19] MEDS: HYDROCHLOROTHIAZIDE 25 MG TAB PO SCH (08:49)
[2017-07-19] MEDS: ASPIRIN 81 MG ECTAB PO SCH (08:49)
[2017-07-19] MEDS: CALCIUM 600MG + VIT D 400 IU TAB PO SCH (08:49)
[2017-07-19] MEDS: FINASTERIDE 5 MG TAB PO SCH (08:49)
[2017-07-19] MEDS: POLYETHYLENE (MIRALAX) 17 GM PACK PO SCH (08:50)
[2017-07-19] MEDS ORDERED: NON-FORMULARY MEDICATION (Coenzyme Q10 (Ubidecarenone) (Coq10) 200 MG) PO SCH (09:00)
[2017-07-19] MEDS: ONDANSETRON INJ 2 MG/ML 2 ML VIAL IV PRN (09:34)
[2017-07-19] MEDS ORDERED: ALUMINUM/MAGNESIUM SUSP 30 ML UDC ONE (11:23)
[2017-07-19] MEDS ORDERED: ALUMINUM/MAGNESIUM SUSP 30 ML UDC PO ONE (11:30)
[2017-07-19] MEDS: OXYCODONE HCL IR 5 MG TAB (IMMEDIATE RELEASE) PO PRN (15:13)
--- NOTE | 2017-07-19 15:13 | ORTHOPEDICS PROGRESS NOTE ---
DATE: 07/19/2017 TIME: This morning at approximately 8:00 a.m. SUBJECTIVE: Mr. Wiggins was doing moderately well. Alert, oriented. No chest pain, shortness of breath. No confusion. No calf tenderness. OBJECTIVE: VITAL SIGNS: Stable. LABORATORY DATA: Lab work not indicated. ASSESSMENT: Status post significant lumbar spine revision surgery, stable. PLAN: Includes up and ambulatory here today. Hopefully, discharge tomorrow with some physical therapy. I believe he can go home. He may need some home health services as well.
--- NOTE | 2017-07-19 19:30 | Medical Consult ---
Consultation Date of Consultation: July 19, 2017. Attending Physician: Leonel Christine DO Reason for Consultation: GI distress History of Present Illness This is a 76 y/o male with a history of CAD, HTN, HLD, CKD stage III, BPH, ankylosing spondylitis, basal cell carcinoma and GERD who presents s/p decompression laminectomy and posterolateral fusion L3-L5 with Dr. Christine on with GI distress. The patient complains of constant hiccups and burping. He states this was briefly relieved by Maalax earlier today for about 10 minutes but has not been able to have lasting relief. He was given Protonix this morning. He denies any nausea, vomiting or abdominal pain. He does feel like his abdomen is a bit bloated. He is eating well postop. The patient had a Acevedo in place until this afternoon and has not yet voided on his own postop. He has not passed flatus or had a bowel movement. The patient denies fevers, chills, sweats, chest pain, palpitations, claudication, cough, wheezing, shortness of breath, nausea, vomiting, abdominal pain, dysuria, hematuria, urinary retention, paralysis, weakness, numbness and tingling. Past Medical/Surgical History Medical Problems: (1) Ambulatory dysfunction Status: Acute (2) Dehydration Status: Acute (3) Hemorrhagic colitis Status: Acute (4) Influenza Status: Acute (5) Intractable back pain Status: Acute (6) Multiple falls Status: Acute (7) Shoulder pain, right Status: Acute (8) Therapeutic opioid induced constipation Status: Acute CAD HTN HLD CKD stage III BPH Ankylosing spondylitis BCC GERD Family History Cancer Heart disease Hypertension Myocardial infarction at age less than 60 Social History Smoking Status: Never Smoker Smokeless Tobacco Use: No Alcohol Use: occasionally (glass of wine) Drug Use: none Marital Status: Housing Status: lives with family Occupation Status: retired Allergies Coded Allergies: Doxazosin (Verified Allergy, Mild, RASH, ITCHING, 07/18/17) Oxaprozin (Verified Allergy, Unknown, RASH, ITCHING, 07/18/17) Terazosin (Verified Adverse Reaction, Mild, nervousness, 07/18/17) Current Inpatient Medications Current Inpatient Medications Medications (Trade) Dose Ordered Sig/Avery Route Start Time Stop Time Status Last Admin Dose Admin Diphenhydramine HCl (Benadryl Cap) 25 mg Q6H PRN PO 07/18/17 12:45 08/17/17 12:44 Magnesium Hydroxide (Milk Of Magnesia Susp) 30 ml DAILY PRN PO 07/18/17 12:45 08/17/17 12:44 Bisacodyl (Dulcolax Supp) 10 mg DAILY PRN KS 07/19/17 06:00 08/18/17 05:59 Bisacodyl (Dulcolax Tab) 5 mg DAILY PRN PO 07/19/17 06:00 08/18/17 05:59 Polyethylene (Miralax Powder Packet) 17 gm DAILY PO 07/19/17 09:00 08/18/17 08:59 07/19/17 08:50 17 GM Lorazepam 1 mg/ Syringe 0.5 ml @ 1 mls/min Q6H PRN IV 07/18/17 12:45 08/17/17 12:44 Lorazepam (Ativan Tab) 1 mg Q6H PRN PO 07/18/17 12:45 08/17/17 12:44 Metoclopramide HCl (Reglan Inj) 10 mg Q6H PRN IV 07/18/17 12:45 08/17/17 12:44 Ondansetron HCl (Zofran Inj) 4 mg Q6H PRN IV 07/18/17 12:45 08/17/17 12:44 07/19/17 09:34 4 MG Promethazine HCl 12.5 mg/Sodium Chloride 50.5 ml @ 202 mls/hr Q6H PRN IV 07/18/17 12:45 08/17/17 12:44 Hydromorphone HCl (Dilaudid Inj) 1.5 mg Q3H PRN IV 07/19/17 08:00 08/02/17 07:59 Oxycodone/ Acetaminophen (Percocet 5-325mg Tab) 2 tab Q4H PRN PO 07/19/17 08:00 08/02/17 07:59 Future Hold Hydromorphone HCl (Dilaudid Inj) 1 mg Q3H PRN IV 07/19/17 08:00 08/02/17 07:59 Oxycodone/ Acetaminophen (Percocet 5-325mg Tab) 1 tab Q4H PRN PO 07/19/17 08:00 08/02/17 07:59 Future Hold Acetaminophen (Tylenol Tab) 650 mg Q6H PRN PO 07/18/17 12:45 08/17/17 12:44 Dexamethasone Sodium Phosphate 10 mg/Syringe 2.5 ml @ 1 mls/min Q8H IV 07/18/17 18:00 07/20/17 02:03 07/19/17 10:34 1 MLS/MIN Oxycodone HCl (Roxicodone Immediate Rel Tab) 10 mg Q4H PRN PO 07/19/17 08:00 08/02/17 07:59 Oxycodone HCl (Roxicodone Immediate Rel Tab) 5 mg Q4H PRN PO 07/19/17 08:00 08/02/17 07:59 07/19/17 15:13 5 MG Amlodipine Besylate (Norvasc Tab) 5 mg QPM PO 07/18/17 21:00 08/17/17 20:59 Aspirin (Ecotrin Tab) 81 mg QAM PO 07/19/17 09:00 08/18/17 08:59 07/19/17 08:49 81 MG Atorvastatin Calcium (Lipitor Tab) 40 mg HS PO 07/18/17 21:00 08/17/17 20:59 07/18/17 21:40 40 MG Finasteride (Proscar Tab) 5 mg QAM PO 07/19/17 09:00 08/18/17 08:59 07/19/17 08:49 5 MG Gabapentin (Neurontin Cap) 600 mg QPM PO 07/18/17 21:00 08/17/17 20:59 07/18/17 21:39 600 MG Hydrochlorothiazide (Hydrochlorothiazide Tab) 25 mg QAM PO 07/19/17 09:00 08/18/17 08:59 07/19/17 08:49 25 MG Losartan Potassium (coZAAR TAB) 100 mg QAM PO 07/19/17 09:00 08/18/17 08:59 Metoprolol Succinate (Toprol Xl Tab) 25 mg QAM PO 07/19/17 09:00 08/18/17 08:59 Multivitamins (Multivitamin Tab) 1 tab QAM PO 07/19/17 09:00 08/18/17 08:59 07/19/17 08:49 1 TAB Calcium/Vitamin D (Caltrate Plus Tab) 1 tab QAM PO 07/19/17 09:00 08/18/17 08:59 07/19/17 08:49 1 TAB Fish Oil (Campbell-3 (Purified Fish Oil) Cap) 1 gm QAM PO 07/19/17 09:00 08/18/17 08:59 07/19/17 08:45 1 GM Pantoprazole Sodium (Protonix Tab) 40 mg QAM PO 07/19/17 09:00 08/18/17 08:59 07/19/17 07:48 40 MG Review of Systems See HPI for pertinent positives and negatives. All other systems reviewed and negative. Physical Exam Date Time Temp Pulse Resp B/P (MAP) Pulse Ox O2 Delivery O2 Flow Rate FiO2 07/19/17 15:22 37.1 107 16 105/63 (77) 90 Room Air 07/19/17 13:01 93 Room Air 07/19/17 11:57 36.9 95 13 110/70 (83) 93 07/19/17 08:55 93/55 (68) 07/19/17 08:00 Nasal Cannula 2.0 07/19/17 07:46 37.0 70 12 112/60 (77) 95 Nasal Cannula 2.0 07/19/17 03:08 37.3 104 17 84/56 (65) 91 Nasal Cannula 2.0 07/18/17 23:30 98 Nasal Cannula 2.0 07/18/17 22:53 36.9 93 18 92/61 (71) 98 Nasal Cannula 2.0 07/18/17 21:30 89 88/51 (63) Room Air 07/18/17 19:29 36.5 87 17 84/54 (64) 97 Nasal Cannula 2.0 General appearance: Well-developed, well-nourished, no apparent distress Head: Normocephalic, atraumatic Eyes: Normal inspection, PERRL, EOMI ENT: Normal ENT inspection, hearing grossly normal, pharynx normal Neck: Supple, no JVD, trachea midline Respiratory/Chest: Lungs clear to auscultation, normal breath sounds, no respiratory distress Cardiovascular: Regular rate & rhythm, no gallop, no murmur Abdomen/GI: Normal bowel sounds, non-tender, soft Extremities/Musculoskeletal: +Drain removed from back today, incision is leaking blood. Normal inspection, no calf tenderness, no pedal edema Neurological/Psych: Alert, normal mood/affect, oriented x 3 Skin: Normal color, warm/dry, no rash Assessment & Plan 6 y/o male with a history of CAD, HTN, HLD, CKD stage III, BPH, ankylosing spondylitis, neuropathy, and GERD who presents s/p decompression laminectomy and posterolateral fusion L3-L5 with Dr. Christine on 07/18 with GI distress. S/p decompression and fusion L3-L5--POD #1 -Pain management, DVT prophylaxis, and PT/OT as per primary team -AVSS -Drain and Acevedo removed today -Pt not voided on his own yet, catheter removed around 13:30 today -Bladder scan prn, straight cath prn Frequent hiccups/eructation -Continue Protonix daily -Add Zantac 150 PO hs. Limit to once daily dosing due to Cr Cl -If no improvement, can add baclofen CAD, HTN, HLD--stable -Continue Norvasc 5 mg PO qd, HCTZ 25 mg PO qd, losartan 100 mg PO qd, Toprol XL 25 mg PO qd, Lipitor 40 mg PO qd CKD stage III -Baseline creatinine around 1.4 -Will check morning labs to assess renal function BPH -Continue Proscar 5 mg PO qd Neuropathy -Continue gabapentin 600 mg PO qd GERD -PPI, Zantac as above Thank you for this consultation. We will continue to follow.
[2017-07-19] MEDS: AMLODIPINE BESYLATE 5 MG TAB PO SCH (20:06)
[2017-07-19] MEDS: RANITIDINE HCL 150 MG TAB PO SCH (20:06)
[2017-07-19] MEDS: GABAPENTIN 300 MG CAP PO SCH (21:49)
[2017-07-19] MEDS: ATORVASTATIN 40 MG TAB PO SCH (21:49)
[2017-07-19] MEDS ORDERED: NURSING DECISION MEDICATION ORDER SCH (22:00)
[2017-07-19] MEDS ORDERED: COUGH DROP (SUGAR FREE) LOZ 24 LOZ/1 BOX LOZ PRN (22:00)
[2017-07-20] MEDS: DEXAMETHASONE INJ 10 MG in SYRINGE 0 ML IV SCH (02:44)
[2017-07-20 06:21] LABS: HEMATOCRIT 28.4 % (42-52); MEAN CELL VOLUME 87.4 fL (80-100); MEAN CORPUSCULAR HEMOGLOBIN 30.8 pg (25-34); MEAN CORPUSCULAR HGB CONC 35.2 g/dl (32-36); PLATELET COUNT 178 K/uL (130-400); RED CELL DISTRIBUTION WIDTH CV 13.6 % (11.5-14.5); RED CELL DISTRIBUTION WIDTH SD 43.5 fL (36.4-46.3); WHITE BLOOD COUNT 13.53 K/uL (4.8-10.8)
[2017-07-20 06:46] LABS: CALCIUM 8.5 mg/dl (8.5-10.1); CREATININE 2.46 mg/dl (0.60-1.40); POTASSIUM 4.1 mmol/L (3.5-5.1)
[2017-07-20 07:59] VITALS: BP 120/70; PULSE 91; TEMP 37; O2SAT 93
[2017-07-20 08:02] VITALS: O2SAT 93
--- NOTE | 2017-07-20 08:04 | Discharge Instructions ---
Discharge Instructions Date of Service July 20, 2017. Admission Reason for Admission: Spinal Stenosis Discharge Discharge Diagnosis / Problem: same Discharge Goals Goal(s): Improve function Activity Recommendations Activity Limitations: as noted below Lifting Limitations: no more than 5 pounds . Instructions / Follow-Up Instructions / Follow-Up MEDICATIONS: Please take your prescriptions as instructed at your pre-op appointment. SPECIAL CARE: The following information is intended to answer some of the common questions and concerns regarding your surgery. Each patient is an individual and receives individual counselling throughout the course of treatment, from diagnosis to surgery all the way through recovery. What follows is not an exhaustive list, but should be a useful guide to some of the common questions and concerns patients have regarding their surgeries. These are not provided to keep you from calling us; rather, they give you something accurate and concrete to reference as you recover from your procedure. If you need us, we are available to you. As always, if you are not sure about something, call us at [phone]. MEDICAL EMERGENCIES: For these conditions, call 911 or go to your local hospital-based Emergency Department - not [facility] or equivalent. * Paralysis * Severe chest pain or difficulty breathing * Swelling or redness of either leg Spine procedures can be rather complex and though complications are rare, they do occur. In such cases, effective advice regarding emergency situations cannot always be addressed over the telephone. You may be referred to the emergency department for more effective management of your problem. Activity Limitations: It is important to give your body time to heal, so please limit your activities : * In general, don't do anything that moves your spine too much. You should avoid contact sports, twisting or heavy lifting while you recover. * 5-10 pounds is all you should attempt to lift. * You should not plan on driving for approximately 3 weeks and you should avoid traveling more than 30-45 minutes at a time. Longer trips should be broken down with walking breaks spaced appropriately. * Physical therapy is not usually required. * Walking and good posture practices will help you recover and regain your function. * Avoid straining or sudden changes in position. * In general, the goal is to take it easy and recover. Don't cause any new problems. Just relax. Showers: * Do not take a bath, use a Jacuzzi or hot tub or otherwise submerge your incision. * It is usually safe to take a shower 4-5 days after your surgery. * Your incision does not require any special creams or ointments. * Simply clean it with soap and water, dry and re-dress with a clean bandage afterwards. Incision: * Keep incision clean, dry and protected until your first follow-up appointment. * Some amount of drainage and redness is normal. Any drainage should be fairly clear and not have a foul odor. * If you feel anything is wrong or you have excessive drainage, please call us. * Your stitches and asia will be removed 10-14 days after your surgery. At the time of your first post-op visit. * Neck surgeries are typically closed with a suture underneath the skin. The steri-strips over the incision should be maintained until we see you in the office. Bracing: * You may be provided with a back or neck brace to encourage good posture and prevent injury. It will remind you not to do too much as you heal and will alert others to the fact that you have had a surgery. * Back braces may be removed for showers and when you are resting at home. They must be worn when you are walking around for any period of time or for travel. * For neck surgery, you will likely be provided with two cervical collars. The soft collar ([place] or foam rubber) is worn most commonly throughout the day and while sleeping. The plastic collar (provided at the hospital) is for showering/bathing. * Except while eating, collars should remain in place. More specifically, bracing is provided for a purpose and should be worn. * Please obtain your brace or collars prior to your operation and bring them to the hospital with you on the day of surgery. * You should also bring your collars to your post-op appointment with Dr. Christine. You should always take good care of your body and practice healthy habits, especially following surgery. You should: * Follow your doctor's treatment plan * Sit and stand properly with good posture (ears over shoulders, shoulders over hips) Don't slouch * Learn to lift correctly * Exercise regularly (low-impact aerobic exercise is especially good, but check with your doctor first) * Generally, be up and walking for 5-10 minutes at a time at least 3-4 times per day from the day you get home * Increasing walking to tolerance until you can walk for 20-30 minutes at a time * Attain and maintain a healthy body weight * Eat healthy foods ( a well-balanced, low-fat diet rich in fruits and vegetables) and get enough calcium * Avoid excessive use of alcohol When to call our office - If you notice any of the following: * Increased pain not relieve by pain medicine * Fevers greater then 100 degrees F, chills or flu symptoms * Increased redness around incision * Drainage from the incision that is not clear * Any foul smelling drainage * Swelling or fluid collection beneath the skin Miscellaneous: * In the hospital, you may be given a walker or cane for support while walking. These are temporary needs and are intended to prevent injuries due to falls. You may discontinue them when you feel strong and steady enough on your feet. * Sleep in a comfortable position. We find that many patients find a lounge chair or recliner with several pillows to be beneficial in the early post-operative period. * The support stockings should be used for 7-10 days and may be discontinued when you are back to walking more and conducting usual household activities. No problem is insignificant. We are here to help you and get you well. Contact us at [phone]. Definitions: Foraminotomy: If part of the disc or a bone spur (osteophyte) is pressing on a nerve as it leaves the vertebra (through an exit called the foramen), a foraminotomy may be done. Otomy means "to make an opening." A foraminotomy is making the opening of the foramen larger, so the nerve can exit without being compressed. Laminotomy: Similar to the foraminotomy, a laminotomy makes a larger opening, this time in your bony plate protecting your spinal canal and spinal cord (the lamina). The lamina may be pressing on your nerve, so the surgeon may make more room for the nerves using a laminotomy. Laminectomy: Sometimes, a laminotomy is not sufficient. The surgeon may need to remove all or part of the lamina. This procedure is called a laminectomy. This can often be done at many levels without any harmful effects. Current Hospital Diet Patient's current hospital diet: Regular Diet Discharge Diet Recommended Diet: Regular Diet Procedures Procedures Performed: L1-L2, L2-L3 Removal Implants; L2-L3, L3-L4, L4-L5 Decompression and Fusion Pending Studies Studies pending at discharge: no Medical Emergencies . Who to Call and When: Medical Emergencies: If at any time you feel your situation is an emergency, please call 911 immediately. . Non-Emergent Contact Non-Emergency issues call your: Primary Care Provider . "Provider Documentation" section prepared by Leonel Christine. .
[2017-07-20] MEDS: ASPIRIN 81 MG ECTAB PO SCH (08:31)
[2017-07-20] MEDS: FINASTERIDE 5 MG TAB PO SCH (08:31)
[2017-07-20] MEDS: OMEGA-3 (PURIFIED FISH OIL) 1 GM CAP PO SCH (08:31)
[2017-07-20] MEDS: MULTIVITAMIN TAB PO SCH (08:32)
[2017-07-20] MEDS: HYDROCHLOROTHIAZIDE 25 MG TAB PO SCH (08:32)
[2017-07-20] MEDS: LOSARTAN POTASSIUM 50 MG TAB PO SCH (08:32)
[2017-07-20] MEDS: POLYETHYLENE (MIRALAX) 17 GM PACK PO SCH (08:32)
[2017-07-20] MEDS: CALCIUM 600MG + VIT D 400 IU TAB PO SCH (08:32)
[2017-07-20] MEDS: PANTOprazole SOD 40 MG TAB PO SCH (08:33)
[2017-07-20] MEDS: METOPROLOL SUCC 25MG EXT REL TAB PO SCH (08:33)
[2017-07-20] MEDS: SODIUM CHLOR 0.45% + 20MEQ KCL 1,000 ML IV SCH ×2 (10:08→20:00)
[2017-07-20 12:03] VITALS: BP 114/76; PULSE 90; TEMP 36.6; O2SAT 93
[2017-07-20 13:51] LABS: CALCIUM 8.6 mg/dl (8.5-10.1); CREATININE 2.24 mg/dl (0.60-1.40); POTASSIUM 4.1 mmol/L (3.5-5.1)
[2017-07-20 15:35] VITALS: BP 104/67; PULSE 82; TEMP 36.9; O2SAT 96
[2017-07-20] MEDS: OXYCODONE HCL IR 5 MG TAB (IMMEDIATE RELEASE) PO PRN ×2 (16:04→21:09)
--- NOTE | 2017-07-20 21:01 | Progress Note ---
Subjective Date of Service: July 20, 2017. Subjective Pt evaluation today including: conversation w/ patient, physical exam, chart review, lab review, conversation w/ financial planning consultant (ortho - Dr. sumner), review of inpatient medication list Pain: back PO Intake: fair/poor Voiding: no voiding problems patient just passed first flatus this afternoon no bowel movement feels bloated continues with burping/belching/hiccups denies dyspnea Problem List Medical Problems: (1) Ambulatory dysfunction Status: Acute (2) Dehydration Status: Acute (3) Hemorrhagic colitis Status: Acute (4) Influenza Status: Acute (5) Intractable back pain Status: Acute (6) Multiple falls Status: Acute (7) Shoulder pain, right Status: Acute (8) Therapeutic opioid induced constipation Status: Acute Review of Systems Constitutional: No fever, No chills Respiratory: No cough, No shortness of breath, No dyspnea on exertion Cardiac: No chest pain Abdomen: + constipation, No pain Objective Vital Signs Date Time Temp Pulse Resp B/P (MAP) Pulse Ox O2 Delivery O2 Flow Rate FiO2 07/20/17 16:00 Room Air 07/20/17 15:35 36.9 82 16 104/67 (79) 96 Room Air 07/20/17 12:03 36.6 90 14 114/76 (89) 93 Room Air 07/20/17 08:02 93 Room Air 07/20/17 07:59 37.0 91 12 120/70 (87) 93 Room Air 07/20/17 07:15 Room Air 07/20/17 00:15 Room Air 07/19/17 23:02 36.6 93 16 108/70 (83) 92 Room Air Physical Exam General Appearance: no apparent distress ENT: pharynx normal Neck: no JVD Respiratory/Chest: lungs clear, no respiratory distress, no accessory muscle use Cardiovascular: regular rate, rhythm, no gallop, no murmur Abdomen: normal bowel sounds, non tender, no organomegaly, + distended (mild) Extremities: no pedal edema Neurologic/Psychiatric: alert, oriented x 3 Laboratory Results Last 24 Hours Test 07/20/17 05:59 07/20/17 10:10 07/20/17 13:24 White Blood Count 13.53 K/uL Red Blood Count 3.25 M/uL Hemoglobin 10.0 g/dL Hematocrit 28.4 % Mean Corpuscular Volume 87.4 fL Mean Corpuscular Hemoglobin 30.8 pg Mean Corpuscular Hemoglobin Concent 35.2 g/dl RDW Standard Deviation 43.5 fL RDW Coefficient of Variation 13.6 % Platelet Count 178 K/uL Mean Platelet Volume 9.0 fL Sodium Level 136 mmol/L 136 mmol/L Potassium Level 4.1 mmol/L 4.1 mmol/L Chloride Level 103 mmol/L 102 mmol/L Carbon Dioxide Level 24 mmol/L 26 mmol/L Anion Gap 9.0 mmol/L 8.0 mmol/L Blood Urea Nitrogen 52 mg/dl 53 mg/dl Creatinine 2.46 mg/dl 2.24 mg/dl Est Creatinine Clear Calc Drug Dose 22.2 ml/min 24.4 ml/min Estimated GFR () 28.4 31.8 Estimated GFR (Non- 24.5 27.5 BUN/Creatinine Ratio 21.3 23.8 Random Glucose 156 mg/dl 151 mg/dl Calcium Level 8.5 mg/dl 8.6 mg/dl Urine Color YELLOW Urine Appearance CLEAR Urine pH 5.0 Urine Specific [place] 1.017 Urine Protein NEG Urine Glucose (UA) NEG Urine Ketones NEG Urine Occult Blood NEG Urine Nitrite NEG Urine Bilirubin NEG Urine Urobilinogen NEG Urine Leukocyte Esterase NEG Assessment and Plan 76yo male with: 1. s/p decompression laminectomy and posterolateral fusion L3-L5 by Dr. Sumner , POD #2. Defer management to Dr. Sumner's team. 2. acute kidney injury - likely ATN in the setting of hypotension and acute blood loss anemia. Agree with IVF. Repeat BMP this afternoon showed stable/slightly improved creatinine. Would hold the HCTZ and ARB along with any other potentially nephrotoxic agent. BMP in am. 3. constipation vs possible early ileus - cont diet as tolerated but low threshold to cut back to full liquids if he starts vomiting, hiccups/burping worsens, etc. Bowel regimen. 4. CKD stage 3 - creatinine at baseline is 1.4. 5. acute blood loss anemia - Hb drop of 5 grams since admission. Will need Ferrous Sulfate supplementation after d/c. H/H in am for stability. 6. BPH - voiding ok; no signs of obstruction; cont outpatient meds. 7. GERD - PPI, H2 luis fernando. Burping/hiccups likely due to abdominal distension. 8. HTN - now with hypotension or low-normal BPs - hold ARB, hold HCTZ, hold CCB ; CONT the toprol xl. Follow BPs. 9. CAD - no ischemic sx's at this time. Cont asa, BB, statin. spoke with Dr. Sumner - cont IVF and repeat labs in am AM labs will dictate plan of care Continued [facility] stay due to: multiple IV medications needed, other (acute kidney injury) Discharge planning: home with home health
[2017-07-20] MEDS: RANITIDINE HCL 150 MG TAB PO SCH (21:06)
[2017-07-20] MEDS: ATORVASTATIN 40 MG TAB PO SCH (21:06)
[2017-07-20] MEDS: GABAPENTIN 300 MG CAP PO SCH (21:08)
[2017-07-20 23:08] VITALS: BP 128/78; PULSE 63; TEMP 36.5; O2SAT 95
[2017-07-21] MEDS: SODIUM CHLOR 0.45% + 20MEQ KCL 1,000 ML IV SCH (05:27)
[2017-07-21 07:55] VITALS: BP 121/79; PULSE 78; TEMP 36.7; O2SAT 95
[2017-07-21 08:09] LABS: HEMATOCRIT 29.6 % (42-52); HEMOGLOBIN 10.3 g/dL (14.0-18.0)
[2017-07-21 08:42] LABS: CALCIUM 8.1 mg/dl (8.5-10.1); CREATININE 1.66 mg/dl (0.60-1.40)
[2017-07-21] MEDS ORDERED: BISACODYL 10 MG SUPP PR STA (09:40)
[2017-07-21] MEDS: MULTIVITAMIN TAB PO SCH (09:54)
[2017-07-21] MEDS: PANTOprazole SOD 40 MG TAB PO SCH (09:54)
[2017-07-21] MEDS: CALCIUM 600MG + VIT D 400 IU TAB PO SCH (09:55)
[2017-07-21] MEDS: METOPROLOL SUCC 25MG EXT REL TAB PO SCH (09:55)
[2017-07-21] MEDS: ASPIRIN 81 MG ECTAB PO SCH (09:56)
[2017-07-21] MEDS: OMEGA-3 (PURIFIED FISH OIL) 1 GM CAP PO SCH (09:56)
[2017-07-21] MEDS: FINASTERIDE 5 MG TAB PO SCH (09:57)
[2017-07-21] MEDS: POLYETHYLENE (MIRALAX) 17 GM PACK PO SCH (09:57)
[2017-07-21 11:10] VITALS: BP 121/79; PULSE 78; TEMP 36.7; O2SAT 95
--- NOTE | 2017-07-21 15:40 | Progress Note ---
Subjective Date of Service: July 21, 2017. Subjective Pt evaluation today including: conversation w/ patient, physical exam, chart review, lab review, review of inpatient medication list Pain: back; no abd pain PO Intake: fair Voiding: no voiding problems continues with mild burping/hiccups finally started passing flatus overnight no bowel movement yet no emesis able to keep his breakfast down denies dyspnea or chest pain Problem List Medical Problems: (1) Ambulatory dysfunction Status: Acute (2) Dehydration Status: Acute (3) Hemorrhagic colitis Status: Acute (4) Influenza Status: Acute (5) Intractable back pain Status: Acute (6) Multiple falls Status: Acute (7) Shoulder pain, right Status: Acute (8) Therapeutic opioid induced constipation Status: Acute Review of Systems Constitutional: No fever Respiratory: No cough, No shortness of breath Cardiac: No chest pain Abdomen: + constipation, No pain, No nausea, No vomiting Objective Vital Signs Date Time Temp Pulse Resp B/P (MAP) Pulse Ox O2 Delivery O2 Flow Rate FiO2 07/21/17 11:10 36.7 78 16 95 Room Air 07/21/17 07:55 36.7 78 16 121/79 (93) 95 Room Air 07/21/17 07:50 Room Air 07/20/17 23:30 Room Air 07/20/17 23:08 36.5 63 16 128/78 (95) 95 Room Air 07/20/17 16:00 Room Air Physical Exam General Appearance: no apparent distress ENT: pharynx normal Neck: no JVD Respiratory/Chest: lungs clear, no respiratory distress, no accessory muscle use Cardiovascular: regular rate, rhythm, no gallop, no murmur Abdomen: normal bowel sounds, non tender, soft, no organomegaly, + distended ( minimal) Extremities: no pedal edema Neurologic/Psychiatric: alert, oriented x 3 Skin: + pertinent finding (dressings intact over L-spine) Laboratory Results Last 24 Hours Test 07/21/17 07:54 Hemoglobin 10.3 g/dL Hematocrit 29.6 % Sodium Level 140 mmol/L Potassium Level 4.0 mmol/L Chloride Level 107 mmol/L Carbon Dioxide Level 25 mmol/L Anion Gap 8.0 mmol/L Blood Urea Nitrogen 49 mg/dl Creatinine 1.66 mg/dl Est Creatinine Clear Calc Drug Dose 32.9 ml/min Estimated GFR () 45.7 Estimated GFR (Non- 39.4 BUN/Creatinine Ratio 29.3 Random Glucose 111 mg/dl Calcium Level 8.1 mg/dl Magnesium Level 2.1 mg/dl Assessment and Plan 76yo male with: 1. s/p decompression laminectomy and posterolateral fusion L3-L5 by Dr. Christine , POD #3. 2. acute kidney injury - likely ATN in the setting of hypotension and acute blood loss anemia. Nearly resolved. Can d/c IV fluids. Would hold ARB and HCTZ today and probably tomorrow but could resume over weekend. 3. constipation - after I saw the patient on AM rounds I spoke with his nurse and we administered a dulcolax suppos. He apparently had a very large bowel movement and all GI symptoms were improved. He should remain on a bowel regimen at d/c. 4. CKD stage 3 - creatinine at baseline is 1.4. Today his creatinine is 1.6. 5. acute blood loss anemia - Hb drop of 5 grams since admission. Will need Ferrous Sulfate supplementation after d/c. H/H today stable. 6. BPH - voiding ok; no signs of obstruction; cont outpatient meds. 7. GERD - PPI, H2 luis fernando. Burping/hiccups likely due to abdominal distension/constipation. 8. HTN - would hold ARB and HCTZ today /tomorrow then resume over weekend. 9. CAD - no ischemic sx's at this time. Cont asa, BB, statin. from medical standpoint can d/c home now that he moved his bowels nicely Discharge planning: home with home health
--- NOTE | 2017-07-26 13:33 | DISCHARGE SUMMARY ---
Agustin had reconstructive spine surgery and went home on 07/21/2017, improved, stable condition. He was alert, oriented. He did well. He had no chest pain, no shortness of breath. Discharged home in improved stable condition post-lumbar spine surgery. Plan includes follow-up appointment in the office in approximately 10 days post-discharge. Prescriptions offered for pain. Instructions given to him in the office and in the hospital.
== END 2017-07-21 12:02 | disposition home health service (06) | DRG 456 ==
LOC: C.ACU 07:41 → UNDOADMIN 08:35 → C.3E 08:35 → ENRESERV 13:36
PROVIDERS: ADMIT Orthopaedic Surgery Orthopaedic Surgery of the Spine; ATTEND Orthopaedic Surgery Orthopaedic Surgery of the Spine
PROC: 0SG10K1 Fusion of 2 or more Lumbar Vertebral Joints with Nonautologous Tissue Substitute, Posterior Approach, Posterior Column, Open Approach (ICD-10-PCS; principal; 2017-07-18 10:00)
PROC: 0SP004Z Removal of Internal Fixation Device from Lumbar Vertebral Joint, Open Approach (ICD-10-PCS; principal; 2017-07-18 10:00)
DX: M41.86 Other forms of scoliosis, lumbar region (principal); N17.0 Acute kidney failure with tubular necrosis; D62 Acute posthemorrhagic anemia; Z79.82 Long term (current) use of aspirin; M43.16 Spondylolisthesis, lumbar region; I25.10 Atherosclerotic heart disease of native coronary artery without angina pectoris; G62.9 Polyneuropathy, unspecified; E78.5 Hyperlipidemia, unspecified; N40.1 Benign prostatic hyperplasia with lower urinary tract symptoms; N18.3 Chronic kidney disease, stage 3 (moderate); Z85.828 Personal history of other malignant neoplasm of skin; K21.9 Gastro-esophageal reflux disease without esophagitis; I12.9 Hypertensive chronic kidney disease with stage 1 through stage 4 chronic kidney disease, or unspecified chronic kidney disease; K59.00 Constipation, unspecified

== ENCOUNTER 2018-08-05 15:22 | Inpatient (IN) ==
[2018-08-05 16:17] LABS: Basophils # (auto) 0.02 K/uL (0-0.2); Basophils % (auto) 0.3 %; Eosinophils # (auto) 0.17 K/uL (0-0.5); Eosinophils % (auto) 2.8 %; Hematocrit (blood only) 38.6 % (42-52); Hemoglobin 13.8 g/dL (14.0-18.0); Immature Granulocytes # (auto) 0.02 K/uL (0.00-0.02); Immature Granulocytes % (auto) 0.3 %; Lymphocytes # (auto) 1.11 K/uL (1.2-3.4); Mean Corpuscular Hgb Conc 35.8 g/dL (32-36); Mean Platelet Volume 9.3 fL (7.4-10.4); Monocytes % (auto) 9.7 %; Neutrophils # (auto) 4.26 K/uL (1.4-6.5); Neutrophils % (auto) 68.9 %; Platelet Count 248 K/uL (130-400); RDW Coefficient of Variation 13.2 % (11.5-14.5); RDW Standard Deviation 40.8 fL (36.4-46.3); Red Blood Count 4.54 M/uL (4.7-6.1); White Blood Count 6.18 K/uL (4.8-10.8)
--- NOTE | 2018-08-05 16:26 | CT Scan Report ---
CT OF THE HEAD WITHOUT CONTRAST CLINICAL HISTORY: dizzy COMPARISON STUDY: MRI of the brain February 04, 2017. Head CT March 14, 2017. CT DOSE: 614.27 mGy.cm TECHNIQUE: Helical axial images of the head were obtained without IV contrast. Automated exposure con trol was utilized for the study. A dose lowering technique was utilized adhering to the principles o f ALARA. FINDINGS: No acute intracranial hemorrhage, midline shift or mass effect is present. Brain volume is normal. Ventricular system is normal. Basilar cisterns are patent. There are no extra-axial collectio ns are hypodensities are unchanged and suggest small vessel disease. There are no findings to suggest acute dural sinus thrombosis or acute territorial infarct. There are no significant calvarial abnorm alities. Visualized portions of the sinuses and mastoid air cells are clear. IMPRESSION: No acute intracranial findings. Electronically signed by: Augustine Anne M.D. 08/05/2018 4:25 PM
[2018-08-05 16:40] LABS: Alanine Aminotransferase 41 U/L (12-78); Albumin Level 3.5 gm/dl (3.4-5.0); Aspartate Aminotransferase 35 U/L (15-37); BUN Creatinine Ratio 9.2 (10-20); Blood Urea Nitrogen 15 mg/dl (7-18); Carbon Dioxide 28 mmol/L (21-32); Chloride 106 mmol/L (98-107); Creatinine Clr Calc Pharmacy 35.2 ml/min; Est GFR (African American) 45.4; Est GFR (Non-African American) 39.2; Glucose 95 mg/dl (70-99); Potassium 3.8 mmol/L (3.5-5.1); Sodium 140 mmol/L (136-145)
[2018-08-05 16:45] LABS: Alkaline Phosphatase 143 U/L (45-117); Bilirubin,Total 0.6 mg/dl (0.2-1); Globulin 3.6 gm/dl (2.5-4.0); Total Protein 7.1 gm/dl (6.4-8.2); Troponin I < 0.015 ng/ml (0-0.045)
[2018-08-05] MEDS ORDERED: SODIUM CHLORIDE 0.9% 1000ML 500 ML IV ONE (16:59)
--- NOTE | 2018-08-05 17:00 | XRay Report ---
XR chest 2V routine CLINICAL HISTORY: Weakness. Evaluate for pneumonia. COMPARISON STUDY: Chest CT May 08, 2018 and chest radiograph June 30, 2018. 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 Nipple shadows project over each lower lung. There is no pneumothorax or pleural effusion. Mild cardiomegaly is noted without evidence for pulmonary edema. Lumbar spine fusion hardware is partially imaged. Mild bibasilar opacities favo r atelectasis. IMPRESSION: No acute cardiopulmonary findings. Electronically signed by: Augustine Anne M.D. 08/05/2018 4:58 PM
[2018-08-05 17:06] LABS: Appearance Urine Clear (Clear); Bacteria Urine Automated Negative (Negative); Bilirubin Urine Negative (Negative); Blood Urine Negative (Negative); Color Urine Dark Yellow; Glucose Urine UA Negative (Negative); Ketones Urine Negative (Negative); Leukocyte Esterase Urine Negative (Negative); Nitrite Urine Negative (Negative); Protein Urine 1+ (Negative); RBC Urine Automated 0-4 /hpf (0-4); Specific Gravity Urine 1.022 (1.000-1.030); Urobilinogen Urine Negative (Negative)
--- NOTE | 2018-08-05 17:23 | Emergency Department Note ---
Entered by Cindy Ernandez acting as a scribe for Palomo Gonzalez MD History of Present Illness General Chief complaint: Dizziness Stated complaint: NAUSEA, VOMITING, DIZZINESS Source: patient and other (nursing staff) History of Present Illness Provider complaint: light-headed Onset (ago): hour(s) (1430 today) Location: head Pain Consistency: + other (sudden) Quality: + other (light-headed) Associated symptoms: + nausea/vomiting The patient is a 77 year old male who presents to the Emergency Department with complaints of sudden light-headedness occurring at 1430 today. He states that he was eating when his symptoms began. He also reports feeling dizzy and did vomit. The patient states that he did not feel like the room was spinning around. The patient states that he has not had diarrhea, abdominal pain, black or bloody stools, headache, chest pain, shortness of breath, numbness, weakness, fevers, and trouble with speech. The patient reports a history of hypertension and sinus arrhythmia. He denies a history of heart attacks. The patient states that he is not on blood thinners. He states that he has had a persistent rash since January. 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 Per nursing staff, the patient was unable to stand when EMS arrived as he was light-headed. Nursing staff states that the patient was working outside today. The patient states that he did eat breakfast. Home Medications Home Medications Medication Instructions Recorded Confirmed Type amlodipine 5 mg PO QPM 03/21/18 06/30/18 History aspirin 81 mg PO QAM 03/21/18 06/30/18 History calcium carbonate-vitamin D3 1 tab PO DAILY 03/21/18 06/30/18 History cyclobenzaprine 10 mg PO BID PRN 03/21/18 06/30/18 History finasteride 5 mg PO QAM 03/21/18 06/30/18 History gabapentin 600 mg PO HS 03/21/18 06/30/18 History losartan 100 mg PO QAM 03/21/18 06/30/18 History multivitamin [Multiple Vitamins] 1 tab PO QAM 03/21/18 06/30/18 History omeprazole 20 mg PO QAM 03/21/18 06/30/18 History metoprolol succinate 0 mg PO DAILY 05/08/18 06/30/18 History prednisone 10 mg PO DAILY 05/08/18 06/30/18 History famotidine 20 mg PO BID #20 tab 06/30/18 Rx metoclopramide HCl [Reglan] 5 mg PO Q6H PRN #20 tab 06/30/18 Rx mycophenolate mofetil 500 mg PO QID 06/30/18 06/30/18 History sucralfate [Carafate] 10 ml PO QID #420 ml 06/30/18 Rx Allergies Allergy/AdvReac Type Severity Reaction Status Date / Time hydrochlorothiazide Allergy Severe Rash Verified 06/30/18 07:23 doxazosin Allergy Mild RASH, Verified 06/30/18 07:23 ITCHING oxaprozin Allergy Unknown RASH, Verified 06/30/18 07:23 ITCHING terazosin AdvReac Mild nervousness Verified 06/30/18 07:23 Past Med/Surg History Medical History HTN (hypertension) (Chronic) BPH (benign prostatic hyperplasia) Chronic back pain Influenza A Lumbar stenosis Near syncope (Acute) Syncope Surgical History H/O shoulder replacement (Resolved) Previous back surgery (Resolved) Family History Other Family history non-contributory Social History Preferred Language: Italian marital status: current occupational status: retired Feels Safe at Home: Yes Smoking Status: Never smoker Review of Systems See HPI for pertinent positives & negatives. and A total of 10 systems reviewed and were otherwise negative Physical Exam Vital Signs Vital Signs - 24 hr 08/05/18 15:51 08/05/18 16:29 08/05/18 17:09 Temperature 36.5 C Temperature Source Oral Sepsis Recent Fever Within 48 Hours No Sepsis New/Unexplained Change in Mental Status No Sepsis Action Taken by Nursing No Action Required Pulse Rate - Lying 64 Pulse Rate - Sitting 66 Pulse Rate - Standing 64 Pulse Rate 71 Pulse Rate [Apical] 66 64 Pulse Rhythm Regular Pulse Rhythm [Apical] Regular Pulse Strength Normal Pulse Strength [Apical] Normal Respiratory Rate 22 20 14 Respiratory Effort / Characteristics Non-Labored Non-Labored Non-Labored Respiratory Depth Normal Normal Normal Respiratory Pattern Regular Blood Pressure - Lying 110/64 Blood Pressure - Sitting 125/71 Blood Pressure- Standing 129/64 Blood Pressure 111/99 Blood Pressure [Right Arm] 130/78 129/75 Blood Pressure Mean 103 Blood Pressure Mean [Right Arm] 95 93 Pulse Oximetry 94 96 93 Oxygen Delivery Method Room Air Room Air Room Air Constitutional: Vital signs reviewed. Eyes: Pupils are equal round reactive to light. Conjunctiva are noninjected. ENT: Pharynx is clear without erythema or exudate. Mucous membranes are moist. Neck supple without meningeal signs. Respiratory: Clear to auscultation bilaterally. Breath sounds are equal bilaterally. Cardiovascular: Regular rate and rhythm. No rubs or gallops. No carotid bruits. GI: Soft, nondistended and nontender. Bowel sounds are present. Musculoskeletal: No peripheral edema. No lower extremity tenderness. Integumentary: No cyanosis. Neurological: The patient is awake and alert. Cranial nerves II-XII are intact. Motor is 5 out of 5 all extremities. Sensation is intact to light touch all extremities. Normal speech. No pronator drift. No limb ataxia. No dysdiadokinesis Psychiatric: Normal affect. Course 1526: The patient was evaluated in room B9. A history and physical were performed. 1559: Nursing staff informed me that the patient had urinary incontinence in the ambulance. 1642: The patient states that he feels much better. He was able to go to the bathroom without assistance. Consultations Consultation #1: Dr. Flynn Time: 17:21 Administered Medications Sodium Chloride (Nss 1000ml) 500 mls @ 999 mls/hr IV .Q31M ONE Stop: 08/05/18 17:29 Last Admin: 08/05/18 17:06 Dose: 999 mls/hr Documented by: [id number] Medical Decision Making Differential Diagnosis Differentials include dehydration, orthostatic hypotension, cardiac, infectious, and metabolic derangement. Medical Records Attestation: I reviewed the patient's medical records. Home Medications Current Medication List: was personally reviewed by me Additional Comments: I did perform a limited focused review of portions of the patient's old chart on the electronic medical record. The patient was seen in June for heartburn and vomiting and was diagnosed with GERD. Laboratory Data Attestation: I reviewed the patient's lab results. Result diagrams: 08/05/18 15:53 08/05/18 15:53 Lab Results 08/05/18 08/05/18 08/05/18 Range/Units 15:53 15:53 16:45 WBC 6.18 (4.8-10.8) K/uL RBC 4.54 L (4.7-6.1) M/uL Hgb 13.8 L (14.0-18.0) g/dL Hct 38.6 L (42-52) % MCV 85.0 (80-100) fL MCH 30.4 (25-34) pg MCHC 35.8 (32-36) g/dL RDW Std Deviation 40.8 (36.4-46.3) fL RDW Coeff of Selina 13.2 (11.5-14.5) % Plt Count 248 (130-400) K/uL MPV 9.3 (7.4-10.4) fL Immature Gran % (Auto) 0.3 % Neut % (Auto) 68.9 % Lymph % (Auto) 18.0 % [place] % (Auto) 9.7 % Eos % (Auto) 2.8 % Baso % (Auto) 0.3 % Immature Gran # (Auto) 0.02 (0.00-0.02) K/uL Neut # (Auto) 4.26 (1.4-6.5) K/uL Lymph # (Auto) 1.11 L (1.2-3.4) K/uL [place] # (Auto) 0.60 H (0.11-0.59) K/uL Eos # (Auto) 0.17 (0-0.5) K/uL Baso # (Auto) 0.02 (0-0.2) K/uL Sodium 140 (136-145) mmol/L Potassium 3.8 (3.5-5.1) mmol/L Chloride 106 (98-107) mmol/L Carbon Dioxide 28 (21-32) mmol/L Anion Gap 6.0 (3-11) BUN 15 (7-18) mg/dl Creatinine 1.66 H (0.6-1.4) mg/dl Est Cr Clr Drug Dosing 35.2 ml/min Est GFR ( Amer) 45.4 Est GFR (Non-Af Amer) 39.2 BUN/Creatinine Ratio 9.2 L (10-20) Glucose 95 (70-99) mg/dl Calcium 9.0 (8.5-10.1) mg/dl Total Bilirubin 0.6 (0.2-1) mg/dl AST 35 (15-37) U/L ALT 41 (12-78) U/L Alkaline Phosphatase 143 H (45-117) U/L Troponin I < 0.015 (0-0.045) ng/ml Total Protein 7.1 (6.4-8.2) gm/dl Albumin 3.5 (3.4-5.0) gm/dl Globulin 3.6 (2.5-4.0) gm/dl Albumin/Globulin Ratio 1.0 (0.9-2) Urine Color Dark Yellow Urine Appearance Clear (Clear) Urine pH 6.0 (4.5-7.5) Ur Specific [place] 1.022 (1.000-1.030) Urine Protein 1+ H (Negative) Urine Glucose (UA) Negative (Negative) Urine Ketones Negative (Negative) Urine Blood Negative (Negative) Urine Nitrite Negative (Negative) Urine Bilirubin Negative (Negative) Urine Urobilinogen Negative (Negative) Ur Leukocyte Esterase Negative (Negative) Urine WBC (Auto) 1-5 (0-5) /hpf Urine RBC (Auto) 0-4 (0-4) /hpf U Hyaline Cast (Auto) 5-10 H (0-5) /lpf U Epithel Cells (Auto) 5-10 H (0-5) /lpf Urine Bacteria (Auto) Negative (Negative) Imaging Data Radiologist's Impression: Radiology results as stated below per my review and the radiologist's interpretation: CT OF THE HEAD WITHOUT CONTRAST CLINICAL HISTORY: dizzy COMPARISON STUDY: MRI of the brain February 04, 2017. Head CT March 14, 2017. CT DOSE: 614.27 mGy.cm TECHNIQUE: Helical axial images of the head were obtained without IV contrast. Automated exposure control was utilized for the study. A dose lowering technique was utilized adhering to the principles of ALARA. FINDINGS: No acute intracranial hemorrhage, midline shift or mass effect is present. Brain volume is normal. Ventricular system is normal. Basilar cisterns are patent. There are no extra-axial collections are hypodensities are unchanged and suggest small vessel disease. There are no findings to suggest acute dural sinus thrombosis or acute territorial infarct. There are no significant olive rial abnormalities. Visualized portions of the sinuses and mastoid air cells are clear. IMPRESSION: No acute intracranial findings. Electronically signed by: Augustine Anne M.D. 08/05/2018 4:25 PM ECG Data Attestation: I personally reviewed and interpreted this ECG as follows: Indication: other (light-headed) Rate (beats per minute): 59 Rhythm: sinus bradycardia Findings: no PVC and no ST elevation Comparison ECG Date: from (06/30/18) Change: no significant change Blood Pressure Blood Pressure Findings: Normal blood pressure MDM Narrative I did evaluate the patient as noted above. The patient is presenting with dizziness and vomiting. He states he is feeling better now. He is neurologically intact. I did obtain further history from the nurse who noticed that he was incontinent. His later came and stated that the patient had strokelike symptoms including slurring of his speech and confusion. She states he was contorting his left arm and not making much sense. This lasted about 15 minutes. She did not see any tonic-clonic shaking. The patient did not notice that he was incontinent. He also states that he does not remember any of this. IV access was established. The patient was placed on a continuous cardiac monit or. I did order and personally review the patient's 12-lead EKG as described above. There is no evidence of acute ischemia. I did order and personally reviewed the images of the patient's chest x-ray as described above. There is no sign of pneumonia. I did order a urine analysis. There is no evidence of UTI. I did order and review the patient's blood work as noted in the electronic medical record. Creatinine is chronically elevated. Otherwise labs are normal. I did order a CT of the head. I did review the images myself as well as the radiology report as described above. There is no evidence of acute intrarenal process. I did reassess the patient. He has no significant symptoms at this time. Given the history though I was concerned about possible seizure or TIA. I did recommend hospitalization for further evaluation and MRI of the brain. I did discuss case with hospitalist and family service caseworker. Impression & Plan Neurological symptoms, Dizziness Discharge Plan Visit Data Chief Complaint: Dizziness Stated Complaint: NAUSEA, VOMITING, DIZZINESS ED Provider: Palomo Gonzalez Discharge Problem: Neurological symptoms, Dizziness Patient Disposition: Being Evaluated by Hospitalist Condition: Good Forms Stand Alone Forms: My [facility] Prescriptions Prescriptions: No Action multivitamin [Multiple Vitamins] Tablet 1 tab PO QAM RF: 0 cyclobenzaprine 10 mg tablet 10 mg PO BID PRN (Reason: Muscle Spasm) RF: 0 amlodipine 5 mg tablet 5 mg PO QPM RF: 0 aspirin 81 mg Tablet,Delayed Release (Dr/Ec) 81 mg PO QAM RF: 0 gabapentin 300 mg capsule 600 mg PO HS RF: 0 omeprazole 20 mg capsule,delayed release(DR/EC) 20 mg PO QAM RF: 0 losartan 100 mg tablet 100 mg PO QAM RF: 0 finasteride 5 mg tablet 5 mg PO QAM RF: 0 calcium carbonate-vitamin D3 600 mg(1,500mg) -400 unit Tablet 1 tab PO DAILY RF: 0 prednisone 10 mg tablet 10 mg PO DAILY RF: 0 metoprolol succinate 50 mg tablet extended release 24 hr PO DAILY RF: 0 mycophenolate mofetil 500 mg tablet 500 mg PO QID RF: 0 sucralfate [Carafate] 100 mg/mL suspension 10 ml PO QID Qty: 420 RF: 0 famotidine 20 mg tablet 20 mg PO BID Qty: 20 RF: 0 metoclopramide HCl [Reglan] 5 mg tablet 5 mg PO Q6H PRN (Reason: nausea and vomiting) Qty: 20 RF: 0 Referrals Referrals: Griffin Meraz [Primary Care Provider] - The scribe's documentation has been prepared under my direction and personally reviewed by me in its entirety. I confirm that the note above accurately reflects all work, treatment, procedures, and medical decision making performed by me.
--- NOTE | 2018-08-05 18:12 | History & Physical Report ---
Date of Service August 05, 2018 Assessment & Plan (1) Neurological symptoms: Certainly the symptoms are more like a seizure than a stroke. Initial CT scan was unremarkable. Lactic acid also [id number] was unremarkable. Patient will have an MRI scan and neurology consult consideration for EEG. Patient had carotids in 2017. New medications include mycophenolate for rash this was stopped. Otherwise he just been fatigued and he will be put on stroke order set aspirin the escalated to 325 from 81 continue with disease modifying medications of losartan and metoprolol. Amlodipine also. Atorvastatin 40 is added. Interestingly the patient takes Neurontin for neuropathic pain this is also mild antiepileptic this will be continued. Neurology will be consulted (2) HTN (hypertension): amlodipine 5 metoprolol XL 100 losartan 100 (3) Chronic back pain: Patient just takes Tylenol and Neurontin for back pain these will be maintained (4) Rash: Patient be given intravenous hydrocortisone to try to help with his rash he will have Benadryl as needed for itchiness (5) DVT prophylaxis: Lovenox will be used History of Present Illness Primary Care Provider: Griffin Meraz 77 year old male who presents to the Emergency Department with complaints of sudden light-headedness occurring at 1430 today. He states that he was eating when his symptoms began. He began feeling dizzy and told his he had to sit down. He did vomit. The family stated that he became unresponsive and had some tonic clonic movement of his left arm. He lost continence of urine enroute. The family states that this has happened many times in the past all without a diagnosis, it seems he had a workup in 2017 including a MRI of his brain and carotid dopplers, he remembers going to [facility]. He states that he has had a persistent rash since January. 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 . Allergies Allergy/AdvReac Type Severity Reaction Status Date / Time hydrochlorothiazide Allergy Severe Rash Verified 06/30/18 07:23 doxazosin Allergy Mild RASH, Verified 06/30/18 07:23 ITCHING oxaprozin Allergy Unknown RASH, Verified 06/30/18 07:23 ITCHING terazosin AdvReac Mild nervousness Verified 06/30/18 07:23 Home Medications Home Medications Medication Instructions Recorded Confirmed Type amlodipine 5 mg PO QPM 03/21/18 08/05/18 History aspirin 81 mg PO QAM 03/21/18 08/05/18 History calcium carbonate-vitamin D3 1 tab PO DAILY 03/21/18 08/05/18 History cyclobenzaprine 10 mg PO BID PRN 03/21/18 08/05/18 History finasteride 5 mg PO QAM 03/21/18 08/05/18 History gabapentin 600 mg PO HS 03/21/18 08/05/18 History losartan 100 mg PO QAM 03/21/18 08/05/18 History multivitamin [Multiple Vitamins] 1 tab PO QAM 03/21/18 08/05/18 History omeprazole 20 mg PO QAM 03/21/18 08/05/18 History metoprolol succinate 50 mg PO DAILY 05/08/18 08/05/18 History metoclopramide HCl [Reglan] 5 mg PO Q6H PRN #20 tab 06/30/18 08/05/18 Rx mycophenolate mofetil 500 mg PO BID 06/30/18 08/05/18 History calcium carbonate-vitamin D3 1 tab PO DAILY 08/05/18 08/05/18 History [Caltrate 600 + D] cetirizine 10 mg PO DAILY PRN 08/05/18 08/05/18 History cholecalciferol (vitamin D3) 1,000 unit PO DAILY 08/05/18 08/05/18 History metoclopramide HCl 5 mg PO AC 08/05/18 08/05/18 History minocycline 50 mg PO DAILY 08/05/18 08/05/18 History pyridoxine (vitamin B6) 50 mg PO DAILY 08/05/18 08/05/18 History sucralfate [Carafate] 10 ml PO QID 08/05/18 08/05/18 History triamcinolone acetonide 1 applic TOPICAL BID 08/05/18 08/05/18 History Past Med/Surg History Family History Mother , Mother age 99 with hypertension and arthritis Hypertension Osteoarthritis Father , Father age 48 of an HI. 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 Feels Safe at Home: Yes Safety Concerns: Feels Safe At This Time Smoking Status: Never smoker Do You Dip or Chew Tobacco: No Second Hand Exposure: No Tobacco Cessation Education Requested by Patient: No Hx Alcohol Use: Yes Alcohol type: wine Hx Substance Use: No Review of Systems Review of Systems: ROS: well nourished well developed. No double vision blurry vision No problems with speech or swallowing No palpitations, chest pain or pressure No Wheezing or breathing issues No abdominal pain nausea vomiting diarrhea No burning urine urine frequency or changes in color persistent chronic focal joint pain of shoulders but know muscle pain chronc skin rash but no oral lesions No unusual bruising or bleeding Chronic low back pain occasional radicular pain down legs No changes in memory or confusion Physical Exam Physical Exam: The patient appeared well nourished and normally developed. Vital signs as documented. Head exam is unremarkable. normocephalic, atraumatic, oral pharnyx is clear Neck is without jugular venous distension, thyromegaly, or lymphademopathy Lungs are with basilar rales that clear with inspiration Cardiac exam reveals Rhythm is regular. First and second heart sounds normal. Abdominal exam reveals normal bowel sounds, no masses, no organomegaly Extremities are nonedematous and both pedal pulses are present Neurologic exam is A&Ox3, no focal deficits, strength is equal bilateral no arm drift, normal finger to nose, no facial droop Psychologically seems neither anxious or depressed Skin is warm Dry with macular papular rash, that is blanchable and is more on torso Results & Data Vital Signs (Past 12 Hours) Vital Signs Temp Pulse Pulse Resp BP BP Pulse Ox 08/05/18 18:04 16 131/82 94 08/05/18 17:09 64 14 129/75 93 08/05/18 16:29 66 20 130/78 96 08/05/18 15:51 36.5 C 71 22 111/99 94
[2018-08-05] MEDS ORDERED: ACETAMINOPHEN 325 MG TAB PO PRN (18:43)
[2018-08-05] MEDS ORDERED: POLYETHYLENE (MIRALAX) 17 GM PACK PO PRN (18:43)
[2018-08-05] MEDS ORDERED: PHARMACIST DISCHARGE MED REC CONSULT PRN (18:43)
[2018-08-05] MEDS ORDERED: ONDANSETRON INJ 2 MG/ML 2 ML VIAL IV PRN (18:43)
[2018-08-05] MEDS ORDERED: ALUMINUM/MAGNESIUM SUSP 30 ML UDC PO PRN (18:43)
[2018-08-05] MEDS ORDERED: LORazepam 0.5 MG/1 ML VIAL IV PRN (18:43)
[2018-08-05] MEDS ORDERED: SODIUM CHLORIDE 0.9% 1000ML 1,000 ML IV SCH (18:50)
[2018-08-05 19:54] LABS: Partial Thromboplastin Ratio 0.9; Partial Thromboplastin Time 25.4 Seconds (21.0-31.0); Prothrombin Time 10.7 Seconds (9.0-12.0)
[2018-08-05] MEDS: HYDROCORTISONE SOD 50 MG in SYRINGE 0 ML IV SCH (21:16)
[2018-08-05] MEDS: ENOXAPARIN INJ 40 MG/0.4 ML SYR SQ SCH (21:19)
[2018-08-05] MEDS: AMLODIPINE BESYLATE 5 MG TAB PO SCH (21:20)
[2018-08-05] MEDS: GABAPENTIN 300 MG CAP PO SCH (21:20)
--- NOTE | 2018-08-05 21:23 | Magnetic Resonance Report ---
MRI OF THE BRAIN WITHOUT CONTRAST CLINICAL HISTORY: Dizzy. Lightheaded. Evaluate for stroke. COMPARISON STUDY: MRI of the brain February 04, 2017. Head CT performed earlier today. TECHNIQUE: Utilizing a 1.5 Shakira magnet and dedicated coil, multiplanar, multiecho imaging of the bra in was performed without IV contrast. FINDINGS: There are no foci of restricted diffusion to suggest acute infarct. No acute intracranial h emorrhage, midline shift or mass effect is present. Ventricular system is stable. Basilar cisterns ar e patent. There are no extra-axial collections. Flow-voids for the major intracranial vessels are pre sent. No intracranial masses identified on this unenhanced exam. Numerous white matter T2 hyperintens e foci suggest small vessel disease which has mildly progressed since MRI of February 04, 2017. Amy rial signal is normal. Orbits and sinuses are unremarkable. IMPRESSION: No acute intracranial findings. No acute infarct. Electronically signed by: Augustine Anne M.D. 08/05/2018 9:22 PM
[2018-08-06 02:39] LABS: Basophils # (auto) 0.01 K/uL (0-0.2); Basophils % (auto) 0.2 %; Eosinophils # (auto) 0.01 K/uL (0-0.5); Eosinophils % (auto) 0.2 %; Hematocrit (blood only) 38.3 % (42-52); Hemoglobin 13.1 g/dL (14.0-18.0); Immature Granulocytes # (auto) 0.02 K/uL (0.00-0.02); Immature Granulocytes % (auto) 0.3 %; Lymphocytes # (auto) 0.87 K/uL (1.2-3.4); Lymphocytes % (auto) 14.9 %; Mean Corpuscular Hgb Conc 34.2 g/dL (32-36); Mean Corpuscular Volume 85.7 fL (80-100); Mean Platelet Volume 9.3 fL (7.4-10.4); Monocytes # (auto) 0.12 K/uL (0.11-0.59); Monocytes % (auto) 2.1 %; Neutrophils # (auto) 4.79 K/uL (1.4-6.5); Neutrophils % (auto) 82.3 %; Platelet Count 224 K/uL (130-400); RDW Standard Deviation 40.5 fL (36.4-46.3); Red Blood Count 4.47 M/uL (4.7-6.1); White Blood Count 5.82 K/uL (4.8-10.8)
[2018-08-06 02:56] LABS: BUN Creatinine Ratio 10.4 (10-20); Blood Urea Nitrogen 14 mg/dl (7-18); Calcium 8.4 mg/dl (8.5-10.1); Carbon Dioxide 26 mmol/L (21-32); Chloride 111 mmol/L (98-107); Creatinine Clr Calc Pharmacy 40.2 ml/min; Est GFR (African American) 58.8; Est GFR (Non-African American) 50.7; Glucose 110 mg/dl (70-99); Potassium 3.9 mmol/L (3.5-5.1); Sodium 142 mmol/L (136-145)
[2018-08-06 03:01] LABS: Chol HDL Ratio 3; Cholesterol 110 mg/dl (0-200); HDL Cholesterol 43 mg/dl; LDL Cholesterol Calculated 53 mg/dl; Triglycerides 70 mg/dl (0-150); Troponin I < 0.015 ng/ml (0-0.045); VLDL Cholesterol 14 mg/dl
[2018-08-06] MEDS: HYDROCORTISONE SOD 50 MG in SYRINGE 0 ML IV SCH ×3 (05:49→21:03)
[2018-08-06] MEDS: FINASTERIDE 5 MG TAB PO SCH (08:03)
[2018-08-06] MEDS: LOSARTAN POTASSIUM 50 MG TAB PO SCH (08:03)
[2018-08-06] MEDS: ASPIRIN 325 MG ECTAB PO SCH (08:04)
[2018-08-06] MEDS: METOPROLOL SUCC 50MG EXT REL TAB PO SCH (08:04)
[2018-08-06] MEDS: ATORVASTATIN 40 MG TAB PO SCH (08:04)
--- NOTE | 2018-08-06 11:29 | Neurology Consultation ---
Date of Consultation August 06, 2018 Assessment & Plan (1) Neurological symptoms: Patient had an episode yesterday of vertiginous symptoms followed by an unusual episode of decreased responsiveness, abnormal posturing the left upper extremity, no recall for the event and possibly a 2nd spell in the ambulance with incontinence of urine. Certainly cannot exclude a seizure. His MRI of the brain shows no acute changes or stroke. 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 In where cases mycophenolate can create seizures and altered mental status in patients. It only been on this for about 4-5 days, but he was on a relatively significant dose. Currently, on neurologic examination he has no focal findings, meningeal signs, or encephalopathy. He is not lightheaded with standing and was not orthostatic with blood pressure and pulse testing. He was a little dehydrated on admission but this improved with fluids. Patient has a mild posture and action tremor which is likely familial (his sister and mother). There is a little bit of course irregular resting tremor on the left but I believe this is part of his essential tremor picture there is no evidence for Parkinson's disease including no rigidity, bradykinesia, or typical Parkinson's gait. He has moderate old small vessel ischemia on MRI which could put him at some risk for seizures also. Recommendations: 1. EEG routine 2. Hold off on adding a anticonvulsant until after the EEG. 3. Keep gabapentin the same. 4. Discontinue mycophenolate as this may have contributed to these symptoms/seizure-like spell 5. I see no reason today for any other neurologic testing or treatment changes. Overall, I spent a total of 70 minutes with this case including review of records, review of MRI films, direct evaluation the patient at bedside, and discussion of the case with the patient, clinical staff, and Dr. Flynn including differential diagnosis and treatment options. History of Present Illness Reason for Consultation: Is a 77-year-old, who I was asked to see the request of Dr. Flynn, for neurologic consultation regarding unusual episode question seizure Requesting Physician: Dr. Flynn Attending Physician: Palomo Flynn MD History of Present Illness Patient has a longstanding history of hypertension but does not have any history of diabetes or stroke. There are no specific cardiac problems by history either. He has had longstanding low back problems post 4 surgeries for lumbar spinal stenosis and degenerative changes. First was in the year 1999 at [facility]. He had [address] Salas more recently and his most recent surgery was June [address] Christine, who did a reconstructive surgery L2 through L5. Patient states that since this most recent surgery he is doing very well and although he has some intermittent back pain, he has no radicular pain or lower extremity symptoms. He does not have incontinence of urine, weakness, numbness, or pain in the legs. Increase sitting or standing will make is back worse but he gets relief by changing positions or laying down. Gabapentin has helped also and he has been on this for years. Patient developed an unusual rash in January of 2018. The etiology is not apparent and maybe allergen versus autoimmune. He took steroids which always helped but the rash came back with the steroids were tapered off. Over the last 4-5 days he has taken mycophenolate 500 milligrams 4 times a day for the rash. So far this has not helped. On the morning of August 05 he woke around 0530, feeling excellent. He had energy and began working on the garage floor scraping off old pain. He did this all morning until past noon. According to his she feels that he over did it and was hot. Patient admits to working fairly intensively. Around 1430 as he was finishing his lunch, he had the sudden onset of lightheadedness and wooziness. This dizziness was not a fainting feeling but a disconcerting movement feeling. He went down to his chair feeling nauseated and his states that he was moaning and then became in coherent. While this happened he clenched his left upper extremity next was body and his hand twisted on the. It was stiff and did not jerk. He was leaning towards the right and not responding. Once during this he vomited. This lasted a few minutes and then he was doing much better by 10-15 minutes be coherent. The EMS arrived and tried to stand him up and he was too weak to walk. He vomited again and apparently had an episode of urinary incontinence in the ambulance. He arrived August 05 at the emergency room at 1551 hours with a temperature 36.5, pulse 64, respiratory 22, blood pressure 110/94, and O2 saturation 94 percent. There is no significant change in pulse or blood pressure lying sitting or standing. In the ER he complained of lightheadedness but he had no focal neurologic signs. CT scan of the head was unremarkable. CBC showed normal white count and slight anemia. Chem profile showed a mildly elevated creatinine and alk-phos. Urinalysis was unremarkable. Today creatinine was normal and CBC and Chem profile were stable. Triglycerides were 70, cholesterol 110, LDL 53. Nursing reports no spells overnight. He was given steroids and his rash is improved. Mycophenolate was stopped. He feels better this morning has no dizziness, headache, pain, wooziness, weakness, or numbness. He denies ear pain, significant hearing loss, or tinnitus. Allergies Allergy/AdvReac Type Severity Reaction Status Date / Time hydrochlorothiazide Allergy Severe Rash Verified 06/30/18 07:23 doxazosin Allergy Mild RASH, Verified 06/30/18 07:23 ITCHING oxaprozin Allergy Unknown RASH, Verified 06/30/18 07:23 ITCHING terazosin AdvReac Mild nervousness Verified 06/30/18 07:23 Home Medications Home Medications Medication Instructions Recorded Confirmed Type amlodipine 5 mg PO QPM 03/21/18 08/05/18 History aspirin 81 mg PO QAM 03/21/18 08/05/18 History calcium carbonate-vitamin D3 1 tab PO DAILY 03/21/18 08/05/18 History cyclobenzaprine 10 mg PO BID PRN 03/21/18 08/05/18 History finasteride 5 mg PO QAM 03/21/18 08/05/18 History gabapentin 600 mg PO HS 03/21/18 08/05/18 History losartan 100 mg PO QAM 03/21/18 08/05/18 History multivitamin [Multiple Vitamins] 1 tab PO QAM 03/21/18 08/05/18 History omeprazole 20 mg PO QAM 03/21/18 08/05/18 History metoprolol succinate 50 mg PO DAILY 05/08/18 08/05/18 History metoclopramide HCl [Reglan] 5 mg PO Q6H PRN #20 tab 06/30/18 08/05/18 Rx mycophenolate mofetil 500 mg PO BID 06/30/18 08/05/18 History calcium carbonate-vitamin D3 1 tab PO DAILY 08/05/18 08/05/18 History [Caltrate 600 + D] cetirizine 10 mg PO DAILY PRN 08/05/18 08/05/18 History cholecalciferol (vitamin D3) 1,000 unit PO DAILY 08/05/18 08/05/18 History metoclopramide HCl 5 mg PO AC 08/05/18 08/05/18 History minocycline 50 mg PO DAILY 08/05/18 08/05/18 History pyridoxine (vitamin B6) 50 mg PO DAILY 08/05/18 08/05/18 History sucralfate [Carafate] 10 ml PO QID 08/05/18 08/05/18 History triamcinolone acetonide 1 applic TOPICAL BID 08/05/18 08/05/18 History Patient History Family History Mother , Mother age 99 with hypertension and arthritis Hypertension Osteoarthritis Father , Father age 48 of an [place]. 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 Feels Safe at Home: Yes Safety Concerns: Feels Safe At This Time Smoking Status: Never smoker Do You Dip or Chew Tobacco: No Second Hand Exposure: No Tobacco Cessation Education Requested by Patient: No Hx Alcohol Use: Yes Alcohol type: wine Hx Substance Use: No Review of Systems Constitutional: no fever and no fatigue Eyes: no diplopia, no eye pain and no worsening vision Ear, Nose, Mouth, Throat: no ear pain, no tinnitus, no hearing loss and no dysphagia Respiratory: no cough and no dyspnea Cardiovascular: no chest pain, no dyspnea and no palpitations Gastrointestinal: no abdominal pain, no nausea and no vomiting Genitourinary: no dysuria, no urinary frequency and no urinary incontinence Musculoskeletal: no back pain, no neck pain, no radicular pain, no myalgia, no muscle weakness and no muscle atrophy Integumentary: no rash and no lesions Neurologic: no gait abnormality, no falls, no localized weakness, no generalized weakness, no tingling, no numbness, no tremor(s), no abnormal movements, no dizziness, no headache(s), no abnormal speech, no behavioral changes, no confusion and no memory loss Psychiatric: no depression, no abnormal sleep pattern, no anxiety, no difficulty concentrating, no confusion and no hallucinations Endocrine: no fatigue and no flushing Hematologic / Lymphatic: no easy bleeding and no easy bruising Allergy / Immunological: no urticaria Physical Exam Physical Exam: The patient is right-handed. The patient is awake, alert, and attentive. Speech is normal without any aphasia or dysarthria. Mentation and thought processes are intact, with full orientation and normal fund of knowledge. Attention and concentration are normal. Mood and affect are normal and appropriate. General appearance and grooming are normal. Short and long-term memory are intact. The discs are sharp with positive venous pulsations bilaterally. There are no exudates, hemorrhages, or blood vessel changes seen. Pupils are 4 mm bilaterally and reactive to light. Extraocular eye muscles are intact without nystagmus. Visual acuity and visual razo seem normal grossly to confrontation. There are no deficits to sensation in the face in all 3 distributions of the fifth cranial nerve bilaterally. Corneal reflexes are positive bilaterally. Facial strength and symmetry was normal bilaterally. Hearing seems intact grossly to voice and finger rub bilaterally. Palate moves well without asymmetry. There is normal sternocleidomastoid and trapezius (shoulder shrug) strength bilaterally. Tongue is midline with good strength bilaterally. Neck has a full range of motion without discomfort. There are no cervical bruits bilaterally. There are no cranial or ocular bruits. Heart is without murmur. There is a regular rhythm and rate. Cervical, thoracic, and lumbar spine are nontender to palpation. Gait is narrow based, with good arm swing, turns, and stance. Balance is normal eyes open or closed. With outstretched arms there is no drift. There is a slight intermittent resting tremor on the right. He has more prominent postural and action tremor bilaterally a of a mild coarse nature. There is no ataxia with finger to nose testing. There is good facility in the hands. No other abnormal involuntary movements are noted. Motor strength is 5/5 diffusely in the arms bilaterally including deltoids, biceps, triceps, brachioradialis, wrist flexors and extensors, cable television technician, and intrinsic hand muscles. Motor strength is 5/5 diffusely in the legs bilaterally including hip flexors, quadriceps, hamstrings, gastrocnemius, tibialis anterior, tibialis posterior, and Peroneii muscles bilaterally. Toe extensors are normal and there is good bulk in the extensor digitorum brevis muscles bilaterally. The limbs have good tone without rigidity or spasticity. There is no atrophy noted in the muscles. Muscle bulk is normal, there is no tenderness to palpation, no myotonia to percussion, and no fasciculations seen. Sensory examination is intact to touch and pin throughout all 4 limbs diffusely. Reflexes are 2/4 in the biceps, triceps, brachioradialis, quadriceps, and Achilles tendons bilaterally. Toes are downgoing with plantar stimulation bilaterally. Peripheral pulses are present and of normal quality distally in all 4 limbs. There is no peripheral edema noted in the limbs. Results & Data Vital Signs (Past 12 Hours) Vital Signs Temp Pulse Resp BP Pulse Ox 08/06/18 07:06 36.7 C 74 18 125/73 96 08/06/18 03:03 36.7 C 73 18 129/75 95 08/05/18 23:27 36.5 C 71 18 134/76 93 Diagnostic Findings MRI OF THE BRAIN WITHOUT CONTRAST CLINICAL HISTORY: Dizzy. Lightheaded. Evaluate for stroke. COMPARISON STUDY: MRI of the brain February 04, 2017. Head CT performed earlier today. TECHNIQUE: Utilizing a 1.5 Shakira magnet and dedicated coil, multiplanar, multiecho imaging of the brain was performed without IV contrast. FINDINGS: There are no foci of restricted diffusion to suggest acute infarct. No acute intracranial hemorrhage, midline shift or mass effect is present. Ventricular system is stable. Basilar cisterns are patent. There are no extra- axial collections. Flow-voids for the major intracranial vessels are present. No intracranial masses identified on this unenhanced exam. Numerous white matter T2 hyperintense foci suggest small vessel disease which has mildly progressed since MRI of February 04, 2017. Calvarial signal is normal. Orbits and sinuses a re unremarkable. IMPRESSION: No acute intracranial findings. No acute infarct. Electronically signed by: Augustine Anne M.D. 08/05/2018 9:22 PM
--- NOTE | 2018-08-06 13:59 | Hospitalist Progress Note ---
Date of Service August 06, 2018 Assessment & Plan (1) Neurological symptoms: MRI scan shows small vessel disease with nothing acute, initial CT scan was unremarkable. Lactic acid also [id number] was unremarkable. Patient had carotids in 2017. New medications include mycophenolate for rash this was stopped. Aspirin the escalated to 325 from 81 continue with disease modifying medications of losartan and metoprolol. Amlodipine also. Atorvastatin 40 is added. Neurology seen the patient will order an EEG on 08/07 if this is unremarkable patient likely be discharged (2) HTN (hypertension): amlodipine 5 metoprolol XL 100 losartan 100 (3) Chronic back pain: Patient just takes Tylenol and Neurontin for back pain these will be maintained (4) Rash: Patient was given intravenous hydrocortisone which is a big improvement this will be stopped on 08/07, he will have Benadryl as needed for itchiness (5) DVT prophylaxis: Lovenox will be used Subjective pt has no reocurrence of any symptoms, he actually feels much better. Neurology is agreeable to EEG Pt has not had any intolerance to steroids thus far Review of Systems Review of Systems: ROS: well nourished well developed. No double vision blurry vision No problems with speech or swallowing No palpitations, chest pain or pressure No Wheezing or breathing issues No abdominal pain nausea vomiting diarrhea changes in appetite or weight No burning urine urine frequency or changes in color No focal joint pain or muscle pain Persistent skin rash although fading after starting steroids No unusual bruising or bleeding No new focused back pain or numbness or loss of strength is chronic issues with his lower back No changes in memory or confusion Physical Exam Physical Exam: The patient appeared well nourished and normally developed. Vital signs as documented. Head exam is unremarkable. normocephalic, atraumatic Neck is without jugular venous distension, thyromegaly, or lymphademopathy Lungs are clear to auscultation and percussion. Cardiac exam reveals Rhythm is regular. First and second heart sounds normal. Abdominal exam reveals normal bowel sounds, no masses, no organomegaly Extremities are nonedematous and both pedal pulses are present Neurologic exam is A&Ox3, remains without focal deficits, strength is equal bilateral Psychologically seems neither anxious or depressed Skin is warm Dry with fading erythematous lesions Results & Data Vital Signs (Past 12 Hours) Vital Signs Temp Pulse Resp BP Pulse Ox 08/06/18 11:53 36.6 C 84 19 144/86 H 96 08/06/18 07:06 36.7 C 74 18 125/73 96 08/06/18 03:03 36.7 C 73 18 129/75 95
[2018-08-06] MEDS ORDERED: HEPARIN SOD 5,000 UNIT/0.5 ML VIAL SQ SCH (21:00)
[2018-08-06] MEDS: GABAPENTIN 300 MG CAP PO SCH (21:02)
[2018-08-06] MEDS: AMLODIPINE BESYLATE 5 MG TAB PO SCH (21:02)
[2018-08-06] MEDS: ENOXAPARIN INJ 40 MG/0.4 ML SYR SQ SCH (21:02)
[2018-08-06] MEDS ORDERED: PANTOprazole 40 MG TAB PO STA (21:45)
[2018-08-07] MEDS: HYDROCORTISONE SOD 50 MG in SYRINGE 0 ML IV SCH (05:47)
[2018-08-07 05:53] LABS: Estimated Average Glucose 105 mg/dl; Hemoglobin A1C 5.3 % (4.5-5.6)
[2018-08-07 07:15] LABS: Hematocrit (blood only) 38.8 % (42-52); Hemoglobin 13.7 g/dL (14.0-18.0); Immature Granulocytes # (auto) 0.01 K/uL (0.00-0.02); Immature Granulocytes % (auto) 0.1 %; Lymphocytes # (auto) 1.32 K/uL (1.2-3.4); Lymphocytes % (auto) 14.6 %; Mean Corpuscular Hgb Conc 35.3 g/dL (32-36); Mean Corpuscular Volume 84.9 fL (80-100); Mean Platelet Volume 9.4 fL (7.4-10.4); Monocytes # (auto) 0.53 K/uL (0.11-0.59); Monocytes % (auto) 5.8 %; Neutrophils # (auto) 7.21 K/uL (1.4-6.5); Neutrophils % (auto) 79.5 %; Platelet Count 255 K/uL (130-400); RDW Coefficient of Variation 13.1 % (11.5-14.5); RDW Standard Deviation 40.4 fL (36.4-46.3); Red Blood Count 4.57 M/uL (4.7-6.1); White Blood Count 9.07 K/uL (4.8-10.8)
[2018-08-07 07:46] LABS: BUN Creatinine Ratio 15.4 (10-20); Calcium 8.7 mg/dl (8.5-10.1); Creatinine Clr Calc Pharmacy 40.5 ml/min; Est GFR (African American) 59.3; Est GFR (Non-African American) 51.2; Potassium 3.6 mmol/L (3.5-5.1)
[2018-08-07] MEDS: METOPROLOL SUCC 50MG EXT REL TAB PO SCH (09:01)
[2018-08-07] MEDS: FINASTERIDE 5 MG TAB PO SCH (09:01)
[2018-08-07] MEDS: LOSARTAN POTASSIUM 50 MG TAB PO SCH (09:01)
[2018-08-07] MEDS: ASPIRIN 325 MG ECTAB PO SCH (09:01)
[2018-08-07] MEDS: ATORVASTATIN 40 MG TAB PO SCH (09:01)
--- NOTE | 2018-08-07 09:45 | Neurology Progress Note ---
Date of Service August 07, 2018 Assessment & Plan (1) Syncope: I suspect this patient experienced an episode of convulsive syncope. He has had several similar episodes in the past and had a normal EEG in January [address] Novak at that time. Physical exertion while working in his garage may have been a provoking factor. I do not think the CellCept was a significant contributing factor as he had only been on this medication for about 1 week and has had similar episodes in the past. It may be worthwhile for him to pursue an outpatient 30-day cardiac event monitor. I do not have any additional neurological recommendations at this time. Subjective Follow-up for syncope/seizure-like episode The patient is a 77-year old male who was admitted to the hospital after a syncopal episode with associated confusion and stiffening/shaking of the left upper limb potentially worrisome for a seizure. He had been working in his garage scraping the epoxy resin off the floor with some machinery at that time of symptom onset. He recalls feeling lightheaded and dizzy prior to the apparent loss of consciousness but is otherwise amnestic for the episode. He has experienced several similar episodes over the past 1 to 2 years. Prior episodes have been characterized as presyncope with associated confusion, but without focal motor symptoms. He was evaluated by Dr. Novak, neurology, for these episodes in 2016 and had an unremarkable EEG at that time. He has had some outpatient cardiac evaluation as well which was reportedly unremarkable. Currently, the patient is without specific or focal neurological complaint. He denies headache, fever, vision change, vertigo, hearing loss, focal weakness, or sensory loss. He denies expressing any problems with standing up or walking around the hospital room. Past medical history notable for a very mild action tremor, probably benign essential tremor which runs in his family. Patient denies a family history of epilepsy or Parkinson's disease. Review of Systems Constitutional: no fever and no chills Eyes: no blind spots and no diplopia Cardiovascular: no chest pain and no palpitations Neurologic: as per Subjective / HPI Physical Exam Physical Exam: The patient is a well-developed, well-nourished elderly male. He is alert and fully oriented. Recent and remote memory intact. Attention and concentration normal. Patient exhibits a normal spontaneous speech pattern as well as an age-appropriate fund of knowledge. Visual razo full to confrontation. Visual acuity normal. Pupils equal round react to light and accommodation. Eye movements normal. There is no nystagmus. Facial sensation intact. There is no facial droop or weakness. Hearing intact. Palate elevates to midline. Shoulder shrug intact. Tongue protrudes to midline. Sensation intact to all modalities in all 4 limbs. Deep tendon reflexes intact and symmetrical. There is no dysdiadochokinesia or dysmetria [id number] or [id number] bilaterally. Gait and station normal. Patient's it was normal muscle strength and tone for all 4 limbs. There is no atrophy. There is a very mild postural and action tremor noted bilaterally. Results & Data Vital Signs (Past 12 Hours) Vital Signs Temp Pulse Pulse Resp BP BP Pulse Ox 08/07/18 07:53 37.0 C 73 19 153/87 H 93 08/07/18 03:39 36.9 C 76 17 129/63 98 08/07/18 00:15 75 08/06/18 23:53 36.9 C 73 17 127/78 96 Laboratory Results Labs completed this morning reviewed. WBC 9.07, hemoglobin 13.7, hematocrit 38.8, platelet count 255, sodium 141, potassium 3.6, BUN 20, creatinine 1.33, glucose 118 Diagnostic Findings A brain MRI completed on August 05, 2018 revealed a moderate degree of chronic appearing T2/flair hyperintensities, subcortical/periventricular location, consistent with chronic small vessel ischemic disease, mildly progressed compared with a previous MRI done in January 2017. No evidence for acute process. Images and report reviewed. Electroencephalogram was completed this morning. I reviewed the tracing. Preliminary review: Normal background alpha rhythm. No focal slowing or epileptiform abnormalities. An echocardiogram completed August 06, 2018 revealed a normal ejection fraction, no PFO, no significant valvular abnormalities. Electrocardiogram completed August 05, 2018 revealed sinus bradycardia, 59 bpm
--- NOTE | 2018-08-07 10:35 | Procedure Note ---
EEG Procedure Note Date of Service August 07, 2018 Start / End Times Start Time: 8:30A End Time: 8:50P Referring Physician Palomo Flynn MD History Syncope, seizure-like episode Home Medication List Home Medications Medication Instructions Recorded Confirmed Type amlodipine 5 mg PO QPM 03/21/18 08/05/18 History aspirin 81 mg PO QAM 03/21/18 08/05/18 History calcium carbonate-vitamin D3 1 tab PO DAILY 03/21/18 08/05/18 History cyclobenzaprine 10 mg PO BID PRN 03/21/18 08/05/18 History finasteride 5 mg PO QAM 03/21/18 08/05/18 History gabapentin 600 mg PO HS 03/21/18 08/05/18 History losartan 100 mg PO QAM 03/21/18 08/05/18 History multivitamin [Multiple Vitamins] 1 tab PO QAM 03/21/18 08/05/18 History omeprazole 20 mg PO QAM 03/21/18 08/05/18 History metoprolol succinate 50 mg PO DAILY 05/08/18 08/05/18 History metoclopramide HCl [Reglan] 5 mg PO Q6H PRN #20 tab 06/30/18 08/05/18 Rx mycophenolate mofetil 500 mg PO BID 06/30/18 08/05/18 History calcium carbonate-vitamin D3 1 tab PO DAILY 08/05/18 08/05/18 History [Caltrate 600 + D] cetirizine 10 mg PO DAILY PRN 08/05/18 08/05/18 History cholecalciferol (vitamin D3) 1,000 unit PO DAILY 08/05/18 08/05/18 History metoclopramide HCl 5 mg PO AC 08/05/18 08/05/18 History minocycline 50 mg PO DAILY 08/05/18 08/05/18 History pyridoxine (vitamin B6) 50 mg PO DAILY 08/05/18 08/05/18 History sucralfate [Carafate] 10 ml PO QID 08/05/18 08/05/18 History triamcinolone acetonide 1 applic TOPICAL BID 08/05/18 08/05/18 History Inpatient Medication List Al Hydrox/Mg Hydrox/Simethicone (Maalox) 15 ml PO Q4H PRN PRN Reason: Dyspepsia Stop: 09/04/18 18:42 Last Admin: 08/06/18 21:14 Dose: 15 ml Documented by: [id number] Amlodipine Besylate (Norvasc) 5 mg PO QPM [facility] Stop: 09/04/18 20:59 Last Admin: 08/06/18 21:02 Dose: 5 mg Documented by: [id number] Admin: 08/05/18 21:20 Dose: 5 mg Documented by: [id number] Aspirin (Ecotrin) 325 mg PO [facility] Stop: 09/05/18 08:59 Last Admin: 08/07/18 09:01 Dose: 325 mg Documented by: [id number] Admin: 08/06/18 08:04 Dose: 325 mg Documented by: [id number] Atorvastatin Calcium (Lipitor) 40 mg PO [facility] Stop: 09/05/18 08:59 Last Admin: 08/07/18 09:01 Dose: 40 mg Documented by: [id number] Admin: 08/06/18 08:04 Dose: 40 mg Documented by: [id number] Diphenhydramine HCl (Benadryl Capsule) 25 mg PO Q6H PRN PRN Reason: Itching Stop: 09/04/18 18:30 Last Admin: 08/06/18 21:02 Dose: 25 mg Documented by: [id number] Enoxaparin Sodium (Lovenox) 40 mg SQ Q24H [facility] Stop: 09/04/18 20:59 Last Admin: 08/06/18 21:02 Dose: 40 mg Documented by: [id number] Admin: 08/05/18 21:19 Dose: 40 mg Documented by: [id number] Finasteride (Proscar) 5 mg PO [facility] Stop: 09/05/18 08:59 Last Admin: 08/07/18 09:01 Dose: 5 mg Documented by: [id number] Admin: 08/06/18 08:03 Dose: 5 mg Documented by: [id number] Gabapentin (Neurontin) 600 mg PO [facility] Stop: 09/04/18 20:59 Last Admin: 08/06/18 21:02 Dose: 600 mg Documented by: [id number] Admin: 08/05/18 21:20 Dose: 600 mg Documented by: [id number] Losartan Potassium (Cozaar) 100 mg PO [facility] Stop: 09/05/18 08:59 Last Admin: 08/07/18 09:01 Dose: 100 mg Documented by: [id number] Admin: 08/06/18 08:03 Dose: 100 mg Documented by: [id number] Metoprolol Succinate (Toprol Xl) 100 mg PO DAILY [facility] Stop: 09/05/18 08:59 Last Admin: 08/07/18 09:01 Dose: 100 mg Documented by: [id number] Admin: 08/06/18 08:04 Dose: 100 mg Documented by: [id number] Discontinued Medications Sodium Chloride (Nss 1000ml) 500 mls @ 999 mls/hr IV .Q31M ONE Stop: 08/05/18 17:29 Last Infusion: 08/05/18 17:36 Dose: 0 mls/hr Documented by: [id number] Admin: 08/05/18 17:06 Dose: 999 mls/hr Documented by: [id number] Sodium Chloride (Nss 1000ml) 1,000 mls @ 125 mls/hr IV .Q8H [facility] Stop: 08/06/18 02:49 Last Infusion: 08/06/18 03:21 Dose: 0 mls/hr Documented by: [id number] Admin: 08/05/18 19:21 Dose: 125 mls/hr Documented by: [id number] Hydrocortisone Sodium (Succinate 50 mg/ Syringe) 1 mls @ 4 mls/min IV Q8 [facility] Stop: 08/07/18 07:00 Last Admin: 08/07/18 05:47 Dose: 4 mls/min Documented by: [id number] Admin: 08/06/18 21:03 Dose: 4 mls/min Documented by: [id number] Admin: 08/06/18 15:19 Dose: 4 mls/min Documented by: [id number] Admin: 08/06/18 05:49 Dose: 4 mls/min Documented by: [id number] Admin: 08/05/18 21:16 Dose: 4 mls/min Documented by: [id number] Pantoprazole Sodium (Protonix) 40 mg PO [facility] [place] Stop: 08/06/18 21:46 Last Admin: 08/06/18 23:03 Dose: 40 mg Documented by: [id number] Description This is a 21 electrode EEG with a single channel dedicated to limited EKG. The electrodes were placed in accordance with the International 10-20 system. There is a posterior dominant rhythm of 10 Hz which is symmetrically distributed and attenuates with eye opening. There is a normal anterior to posterior organization. Photic stimulation is unremarkable. There is no focal or lateralized slowing. There are no epileptiform abnormalities. Interpretation This is a normal-appearing awake EEG. Clinical Correlation A normal EEG does not completely exclude a diagnosis of seizure disorder. Further clinical correlation may be needed.
--- NOTE | 2018-08-14 15:56 | Discharge Summary ---
Date of Service date of admission - August 05, 2018 date of discharge - August 07, 2018 Admission HPI Per Admitting Provider 77 year old male who presents to the Emergency Department with complaints of sudden light-headedness occurring at 1430 today. He states that he was eating when his symptoms began. He began feeling dizzy and told his he had to sit down. He did vomit. The family stated that he became unresponsive and had some tonic clonic movement of his left arm. He lost continence of urine en-route to the hospital. The family states that this has happened many times in the past all without a diagnosis. He has had previous work-ups for these spells including one in 2016. MRI of the brain and carotid dopplers were done at that time and were normal. He also states that he has had a persistent rash since January 2018. He was told by his doctor that this was an autoimmune rash and was placed on mycophenolate after steroids caused some side affects. He has not been on steroids for many months. Principal Diagnosis "convulsive" syncope Discharge Exam Constitutional well developed, well nourished and healthy appearing; no acute distress and no altered mental status ENMT external ear and nose normal, oropharynx normal Respiratory normal respiratory effort, lungs clear to auscultation Cardiovascular Rate/Rhythm: regular rate and regular rhythm Heart Sounds: normal S1 and normal S2; no murmur Vessels: posterior tibial pulses present and dorsalis pedis pulses present; no JVD Extremities: no edema Gastrointestinal (Abdomen) normal bowel sounds, soft, nontender, no hepatosplenomegaly Neurologic awake; no focal motor deficits Motor/Sensory: no tremor Psychiatric A+Ox3, euthymic affect Discharge Data Allergies Allergy/AdvReac Type Severity Reaction Status Date / Time hydrochlorothiazide Allergy Severe Rash Verified 06/30/18 07:23 doxazosin Allergy Mild RASH, Verified 06/30/18 07:23 ITCHING oxaprozin Allergy Unknown RASH, Verified 06/30/18 07:23 ITCHING terazosin AdvReac Mild nervousness Verified 06/30/18 07:23 Consultations [facility]rology PT, OT, speech therapy Ordered Studies 1. CT head - negative for pathology. 2. MRI brain - FINDINGS: There are no foci of restricted diffusion to suggest acute infarct. No acute intracranial hemorrhage, midline shift or mass effect is present. Ventricular system is stable. Basilar cisterns are patent. There are no extra- axial collections. Flow-voids for the major intracranial vessels are present. No intracranial masses identified on this unenhanced exam. Numerous white matter T2 hyperintense foci suggest small vessel disease which has mildly progressed since MRI of February 04, 2017. Calvarial signal is normal. Orbits and sinuses are unremarkable. IMPRESSION: No acute intracranial findings. No acute infarct. 3. EEG - negative for seizure focus. 4. echocardiogram - * EF 60% * no PFO or shunt * normal vulvular function Hospital Course (1) Syncope: The patient underwent an extensive work-up including CT head, MRI brain, EEG, and echocardiogram. All studies were normal. Telemetry was normal. He was seen in consult by [facility]. It was felt that his episode was likely due to syncope - specifically, "convulsive" syncope (syncopal event marked by myoclonic jerks resembling convulsions). Neurology did not feel that this represented a seizure. They also did not feel that his mycophenalate was connected in any way to this event. The patient has had an extensive work-up for this recurring problem without a specific etiology. He has completed 24-hour Holter Monitors but has never had a 30-day event monitor to look for arrhythmia. Thus, he will be set up for the event monitor shortly after discharge. (2) HTN (hypertension): He will continue amlodipine 5mg daily, metoprolol XL 100mg daily, and losartan 100mg daily. He was not orthostatic while here. (3) Chronic back pain: Continue Tylenol and Neurontin as previous. (4) Rash: Chronic, followed by dermatology. 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 The patient did not feel comfortable continuing his mycophenalate and he will hold such until he sees dermatology following discharge. (5) BPH (benign prostatic hyperplasia): Continue finasteride. Total Time Total Time Spent Total Time Spent (In Minutes): 35 Total Time Includes: Examination of the Patient, Discharge Planning, Medication Reconciliation and Communication With Other Providers Discharge Plan Discharge Items Patient Disposition: Home - Self-Care Reason For Visit: POSSIBLE STROKE VS SYNCOPE Discharge Diagnosis: syncope (passing out spell) - cause not fully certain - additional work-up needed; no evidence or suspicion of seizures Condition: Good Discharge Goals: Diagnostic testing Activity: Resume your previous activity Driving/Machine Use: Resume 1 day after discharge Non-emergency contact: Primary Care Provider Call non-emergency contact if: you have any medication questions and your symptoms worsen Follow-up/Referrals: Griffin Meraz [Primary Care Provider] - 08/10/18 4:10 pm (Please, follow up with Dr. Meraz on August 10 at 4:10 pm. *If you need to change this appointment, call the office at [phone]. YOU WILL BE RECEIVING A CARDIAC EVENT MONITOR IN THE MAIL. THE PACKAGE WILL INCLUDE EASY TO USE INSTRUCTIONS. ) Diet: Regular Addtl Provider Instructions: From Erik Bell- It appears you had an episode of syncope (also known as passing out spell). We do not think you had a seizure. Your MRI brain was normal -- no stroke was seen. Your echocardiogram heart ultrasound was normal. Your EEG (brain wave test for seizures) was normal. Your heart monitoring while here was normal as well. The episodes of syncope you have experienced over the years may be related to mild dehydration. Please be sure to maintain good hydration especially on days when it is warm or you are physically active. If you feel the symptoms coming on it is best to lay down right away as this may hollis off the spell. To be complete we are recommending a "30-day event monitor." This will monitor your heart for 30 days. This may rule out abnormal heart rhythms that could be causing these spells. It will be mailed to your home with instructions. 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 Return to [facility] if -- * you have additional episodes of passing out or have near-fainting * you have chest pain or shortness of breath * you have rapid heart beating/palpitations * any other concerns Prescriptions: Continued cetirizine 10 mg Tablet 10 mg PO DAILY PRN (Reason: Allergy Symptoms) RF: 0 cholecalciferol (vitamin D3) 1,000 unit Tablet 1,000 unit PO DAILY RF: 0 Caltrate 600 + D 600 mg (1,500 mg)-800 unit Tablet,Chewable 1 tab PO DAILY RF: 0 pyridoxine (vitamin B6) 50 mg Tablet 50 mg PO DAILY RF: 0 minocycline 50 mg Tablet 50 mg PO DAILY RF: 0 metoclopramide HCl 5 mg Tablet 5 mg PO AC RF: 0 triamcinolone acetonide 0.1 % cream 1 applic topical BID RF: 0 sucralfate [Carafate] 100 mg/mL suspension 10 ml PO QID RF: 0 multivitamin [Multiple Vitamins] Tablet 1 tab PO QAM RF: 0 cyclobenzaprine 10 mg tablet 10 mg PO BID PRN (Reason: Muscle Spasm) RF: 0 amlodipine 5 mg tablet 5 mg PO QPM RF: 0 aspirin 81 mg Tablet,Delayed Release (Dr/Ec) 81 mg PO QAM RF: 0 gabapentin 300 mg capsule 600 mg PO HS RF: 0 omeprazole 20 mg capsule,delayed release(DR/EC) 20 mg PO QAM RF: 0 losartan 100 mg tablet 100 mg PO QAM RF: 0 finasteride 5 mg tablet 5 mg PO QAM RF: 0 metoprolol succinate 50 mg tablet extended release 24 hr 50 mg PO DAILY RF: 0 metoclopramide HCl [Reglan] 5 mg tablet 5 mg PO Q6H PRN (Reason: nausea and vomiting) Qty: 20 RF: 0 Discontinued calcium carbonate-vitamin D3 600 mg(1,500mg) -400 unit Tablet 1 tab PO DAILY RF: 0 mycophenolate mofetil 500 mg tablet 500 mg PO BID RF: 0 Stand-Alone Forms: [facility] Discharge Orders: Discharge Order (Routine); Ordered 08/07/18 Ordered By: Erik Bell Admission Data Admit Date/Time: 08/06/18 13:53 Attending Provider: Erik Bell Admit Provider: Palomo Flynn Primary Care Provider: Griffin Meraz Other Providers: Jacob Matias III Service: Telemetry Other Interventions: Discharge Summary Assessment (RN) Last Done: 08/07/18 15:37 DC Date/Time DO NOT enter until pt leaves facility: 08/07/18 17:06
== END 2018-08-07 17:06 | disposition home or self-care (01) | DRG 101 ==
LOC: ED 15:22 → 2S 15:22 → SUATTDRO 08-06 13:53

== ENCOUNTER 2021-06-02 11:45 | Observation (INO) ==
--- NOTE | 2021-06-02 13:53 | Pre Anesthesia Assessment ---
Date of Service June 02, 2021 Pre Sedation Assessment Vital Signs Temp Resp Pulse Ox 06/02/21 12:06 36.5 C 18 97 Cardiovascular RRR, no murmur, no edema Respiratory normal respiratory effort, lungs clear to auscultation Pre-Sedation Airway Assessment Smoking Status: Never smoker Hx Sleep Apnea: No Short, Thick Neck: No Thyromental Distance: > or= 3.5 Finger Breadths Oral Cavity: + Dentures and + WNL Mallampati Class: II ASA: ASA2 Procedure Planning Contraindications for Sedation: none Current Medications Reviewed: Yes Notes The planned sedation has been discussed with the patient. Informed Consent was obtained. I have identified the patient, determined the appropriateness of sedation and have assessed the patient immediately prior to the procedure. All medicine(s) and interventions are by my order.
[2021-06-02] MEDS ORDERED: MIDAZOLAM HCL 1 MG/ML 2ML VIAL ONE ×2 (13:58→14:37)
[2021-06-02] MEDS ORDERED: fentaNYL citrate 100 MCG/2 ML VIAL ONE (13:58)
[2021-06-02] MEDS ORDERED: ceFAZolin 330 MG/ML 1 GM VIAL ONE (13:58)
--- NOTE | 2021-06-02 14:03 | History & Physical Report ---
Date of Service June 02, 2021 Assessment & Plan (1) Syncope: (2) AVB (atrioventricular block): Admission and Anticipated Discharge Date Admission Date: 1. Syncope: Based on loop recorder monitoring his episodes of syncope are almost certainly due to bradycardia and asystole. 2. AV block: He recorded episode associated with his episode of syncope shows initially what appears to be 2-1 AV block followed by high-grade AV block and asystole with very little escape rhythm. Although these could be vagally mediated it may simply be transient AV block. His lightheaded spells preceded his nausea and vomiting and therefore are not secondary to nausea and vomiting. I think he certainly should have a dual-chamber pacemaker. I discussed the indications, procedure, risks and alternatives of pacemaker implantation with him and he understands and agrees to proceed. Consent obtained. I also discussed conscious sedation and obtained consent. I discussed these findings with his daughter separately as she was in the waiting room and she understands. History of Present Illness Chief Complaint: Loss of consciousness Primary Care Provider: Griffin Meraz This is an 80-year-old male who has at least 3 years of intermittent loss of consciousness. Initially the episodes were every 6 months or so but he has had several over the last several weeks. He describes a sensation of feeling unusual, then often having nausea and vomiting and then loss of consciousness. He is clear that the episodes start with him having an unusual feeling of lightheadedness, not starting with nausea or vomiting. He is often incontinent with these episodes. He has a background history of coronary disease based on a stress echo in June 2018 where he had anterior hypokinesis and an ischemic response to exercise. He does however have normal left ventricular size and function. On Holter monitoring he had frequent premature atrial beats but no explanation for his syncope, he therefore had a loop recorder implanted on September 04, 2019. On May 28, 2021 he had one of his typical episodes of presyncope followed by loss of consciousness, monitoring at that time revealed initially bradycardia of less than 30 bpm which I believe is 2-1 AV block although the P waves are indistinct followed by a period of asystole which appears to be complete heart block. Over a period of more than 10 seconds there was 1 escape beat. Sinus rhythm then resumed. The rhythm strip is not long enough to determine whether there was a change in sinus rhythm going into the episode. He is therefore set up for pacemaker implantation. Allergies Allergy/AdvReac Type Severity Reaction Status Date / Time hydrochlorothiazide Allergy Severe Rash Verified 01/26/21 12:52 doxazosin Allergy Mild RASH, Verified 01/26/21 12:52 ITCHING oxaprozin Allergy Unknown RASH, Verified 01/26/21 12:52 ITCHING mycophenolate mofetil AdvReac Severe "MAKES ME Verified 05/07/21 15:38 [From [employer]] EXTREMELY ILL" terazosin AdvReac Mild nervousness Verified 01/26/21 12:52 Home Medications Medication Instructions Recorded Confirmed Type gabapentin 300 mg capsule 600 mg PO HS 03/21/18 06/02/21 History multivitamin (Multiple Vitamins) 1 tab PO QAM 03/21/18 06/02/21 History cholecalciferol (vitamin D3) 25 1,000 unit PO QAM 08/05/18 06/02/21 History mcg (1,000 unit) tablet pyridoxine (vitamin B6) 50 mg 50 mg PO QAM 08/05/18 06/02/21 History tablet aspirin 81 mg chewable tablet 81 mg PO QAM 09/03/19 06/02/21 History atorvastatin 40 mg tablet 40 mg PO DAILY 04/03/20 06/02/21 History calcium carbonate 500 mg calcium 500 mg PO DAILY 06/04/20 06/02/21 History (1,250 mg) tablet (Calcium 500) omeprazole 20 mg capsule,delayed 40 mg PO QAM cap 06/04/20 06/02/21 History release finasteride 5 mg tablet 5 mg PO QAM #90 tab 09/25/20 06/02/21 Rx diphenhydramine 12.5 12.5 tab PO PM 11/27/20 06/02/21 History mg-acetaminophen 325 mg tablet fluorouracil 0.5 % topical cream 1 applic TOPICAL DAILY 11/27/20 06/02/21 History losartan 100 mg tablet 100 mg PO DAILY 11/27/20 06/02/21 History nitroglycerin 0.4 mg sublingual 0.4 mg SUBLINGUAL Q5M PRN 11/27/20 06/02/21 History tablet oxycodone 5 mg tablet 5 mg PO .qhs PRN tab 11/27/20 06/02/21 History propranolol 20 mg tablet 20 mg PO BID #60 tab 05/12/21 06/02/21 Rx amlodipine 10 mg tablet 5 mg PO DAILY 06/02/21 06/02/21 History Past Med/Surg History Medical History Anemia Anorexia Atherosclerotic heart disease [place] coronary artery w/angina pectoris BPH (benign prostatic hyperplasia) Chronic back pain Elevated LFTs Hiatal hernia History of basal cell carcinoma HTN (hypertension) Influenza A Lumbar stenosis Near syncope Osteoarthritis Proteinuria Sensorineural hearing loss (SNHL) of right ear with restricted hearing of 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 Myocardial infarction Other Family history non-contributory No family history of allergies No family history of bleeding disorder Denies family history of Hearing loss Heart disease Stroke Asthma Social History Smoking Status: Never smoker Second Hand Exposure: No; Hx Alcohol Use: No Hx Substance Use: No Preferred Language: Latvian Communication Ability: Effective Quality Analyst/Technical Writer Required: No Beliefs That Will Affect Care: None marital status: Current Living Situation: Spouse and Family Current Living Situation Comment: lives at home with and daughter current occupational status: retired 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 Feels Safe at Home: Yes Safety Concerns: Feels Safe At This Time Assistive Devices: None Review of Systems Review of Systems: All systems reviewed & are unremarkable except as noted in HPI & below Physical Exam 2 Physical Exam: Constitutional: Alert, cooperative and in no distress. HEENT: Unremarkable Neck: No jugular venous distention, carotid pulses are normal and equal bilaterally without bruits. Pulmonary: Clear to auscultation bilaterally. Cardiac: Regular rhythm with no murmur, gallop or rub. Abdomen: Soft, nontender with normal bowel sounds. Extremities: No edema. Distal pulses intact. Neurologic: No focal findings. Gait is steady. Skin: No rash, ecchymoses or petechiae. Results & Data Results & Data ([facility]) Vital Signs (Past 12 Hours) Vital Signs Temp Resp Pulse Ox 06/02/21 12:06 36.5 C 18 97 Laboratory Results Intake and Output 06/01/21 06/02/21 06/02/21 22:59 06:59 14:59 Other: Weight 70.9 kg Weight Measurement Method Standing Scale Patient Weight 06/03/21 06:59 Weight 70.9 kg PG Care Time/CCT Total # of Minutes Spent Total Time Spent with Patient: Total time spent is greater than 50% in coordination of care (as documented) at patient's floor/unit and/or counseling patient: Coding Level of Care Code None Diagnoses Syncope R55 AVB (atrioventricular block) I44.30
[2021-06-02] MEDS ORDERED: VANCOMYCIN HCL 1000MG/20ML VIAL ONE (14:06)
[2021-06-02] MEDS ORDERED: WATER, STERILE FOR INJ 10 ML VIAL ONE (14:06)
[2021-06-02] MEDS ORDERED: LIDOCAINE 1% LOCAL 20 ML VIAL ONE (14:06)
[2021-06-02] MEDS ORDERED: BUPIVACAINE 0.25% 30 ML VIAL ONE (14:06)
[2021-06-02] MEDS ORDERED: BACITRACIN OINT 0.9 GM PKT ONE (15:13)
[2021-06-02] MEDS ORDERED: ACETAMINOPHEN 325 MG TAB PO PRN ×2 (15:57→17:21)
[2021-06-02] MEDS ORDERED: ACETAMINOPHEN W/CODEINE #3 1 TAB PO PRN (15:57)
--- NOTE | 2021-06-02 15:57 | Electrophysiology Report ---
Date of Service June 02, 2021 Electrophysiology Procedure Electrophysiology Procedure Report Preoperative diagnosis: Intermittent complete heart block Postoperative diagnosis: Same Procedure: Dual-chamber pacemaker implantation Loop recorder explantation Surgeon: Aramis Mckay MD Estimated blood loss: 20 cc Complications: None Disposition: Flame Degreaser recovery Procedure details: After obtaining informed consent for the procedure, the patient was brought to the laboratory and prepped and draped in the standard sterile manner. The left prepectoral region was anesthetized with 1% lidocaine local anesthetic and left axillary venipuncture was performed by percutaneous technique and a guidewire placed through the left subclavian vein into the superior vena cava. The area was further infiltrated with 1% lidocaine local anesthetic and a 5 cm incision was made parallel to the left clavicle and 2 cm below it and carried down to the anterior pectoralis fascia. A pacemaker pocket was formed by blunt dissection anterior to the pectoralis fascia and a vancomycin-soaked sponge was placed in the pocket. An 8 Turkish Medtronic lead introducer was placed over the guidewire into the left subclavian vein, the dilator and guidewire were removed and a bipolar active fixation steroid tipped ventricular lead was advanced through the introducer into the superior vena cava. A guidewire was placed through the introducer and the introducer was stripped from the lead and guidewire. Another 8 Turkish Medtronic lead introducer was placed over the guidewire into the left subclavian vein, the dilator and guidewire were removed and a bipolar active fixation steroid tipped atrial lead was advanced through the introducer into the superior vena cava. A guidewire was placed back through the introducer and the introducer was stripped from the lead and guidewire. Using a curved stylette the ventricular lead was advanced through the right ventricular outflow tract into the pulmonary artery and then using a straight stylette was positioned in the right ventricular apex. The screw was extended fixing the lead in position. Pacing and sensing thresholds were evaluated in bipolar configuration and are recorded on the implant data sheet. Diaphragmatic pacing was evaluated at maximum output as noted on the data sheet. Using a curved stylette the atrial lead was positioned in the region of the atrial appendage and the screw extended fixing the lead in position. Pacing and sensing thresholds were evaluated in bipolar configuration and are recorded on the implant data sheet. Diaphragmatic pacing was evaluated at maximum output as noted on the data sheet. Once the leads were in position they were attached to the anterior pectoralis fascia using 2 sutures of 2-0 silk around each lead collar. The vancomycin soaked sponge was removed from the pocket, hemostasis was obtained, the pacemaker was attached to the leads and placed in the pocket with the leads coiled beneath it. The incision was closed with a running double subcutaneous closure of 3-0 Vicryl absorbable suture, followed by running subcuticular skin closure of 4-0 Vicryl absorbable suture. Bacitracin ointment was placed on the incision and a dressing applied. The patient was prepped and draped in the standard sterile manner for a loop recorder removal. The area was infiltrated with 1% lidocaine local anesthetic and a 1 cm incision was made through the old implant scar and carried down to the loop recorder. The loop recorder was dissected free of tissue and explanted. The incision was closed with a subcutaneous continuous closure of 4-0 Vicryl followed by running subcuticular skin closure of 4-0 Vicryl. Bacitracin ointment was placed on the incision. A dressing was applied. [facility] [place] Electrophysiology codes Indication for Procedure (1) AVB (atrioventricular block): Pacing Procedure 1: Pacin Insert/Replace Pacer A & V Implantable Monitors Procedure 1: Implantable Monitors: 04646 Loop Recorder Explant PG Moderate Sedation Codes Moderate Sedation Codes Procedure 1: Sedation/Anesthesia: 59020 Mod Sedation by the same physician;Init15 Min Child Age 5 & Up Procedure 2: Sedation/Anesthesia: 56655 Mod Sedation by the same physician; Ea [id number] Minutes
[2021-06-02] MEDS ORDERED: NITROGLYCERIN SL 0.4 MG/TAB TAB SL PRN (15:59)
--- NOTE | 2021-06-02 16:13 | Post Anesthesia Assessment ---
Date of Service June 02, 2021 Post Sedation Assessment Vital Signs Temp Pulse Resp BP Pulse Ox 06/02/21 16:00 85 18 147/98 H 96 06/02/21 12:06 36.5 C 18 97 Recovery Score Activity: Moves 4 extremities Respiration: Deep Breath/Cough Circulation: +/-20% PreAnes Value Consciousness: Fully Awake Oxygen Saturation: > 92% On Room Air Post Anesthesia Score: 10 Discharge Sedation Level of Care: Fast Track Phase II Post Sedation Plan On clinical assessment, the patient appears to have tolerated the sedation without complications. Patient is recovering as anticipated. Patient will continue to be monitored by nursing and may be discharged when sedation discharge criteria are met per below protocol. Upon Completions of procedure up to 15 minutes continue every 5 minute vital signs and the P.A.R. score; then discharge to a Phase I or Fast Track to Phase II per the following guidelines: * Discharge Patient to appropriate Phase II area if PAR is 8 or greater or return to pre- procedure baseline. The post - procedure orders will be as directed. * If PAR score is less than 8 or not return to pre-procedure baseline then patient will follow Phase I monitoring till PAR is reached for Phase II. The Phase I may be done in procedure room or may call to secure a Phase I area. * If naloxone or flumazenil are used for reversal, hold in Phase I for continued monitoring from when last reversal dose was given for a minimum of 60 minutes or longer pending the nurse and/or physician discretion of patient condition before discharge to Phase II. Please call the Sedation Physician to re-evaluate and complete post-note for discharge to Phase II area. Do NOT discharge from procedure sedation or Phase 1 until post- sedation evaluation note is complete by procedure /sedation MD Sedation Discharge Instructions to be given to the patient at discharge to home.
[2021-06-02] MEDS ORDERED: diphenhydrAMINE HCl 12.5 MG/5 ML UDC PO PRN (17:20)
[2021-06-02] MEDS: PROPRANOLOL HCL 20 MG TAB PO SCH (20:00)
[2021-06-02] MEDS ORDERED: GABAPENTIN 300 MG CAP PO SCH (21:00)
[2021-06-03] MEDS: PROPRANOLOL HCL 20 MG TAB PO SCH (08:29)
[2021-06-03] MEDS ORDERED: ATORVASTATIN 40 MG TAB PO SCH (09:00)
[2021-06-03] MEDS ORDERED: ASPIRIN 81 MG ECTAB PO SCH (09:00)
[2021-06-03] MEDS ORDERED: LOSARTAN POTASSIUM 50 MG TAB PO SCH (09:00)
[2021-06-03] MEDS ORDERED: FINASTERIDE 5 MG TAB PO SCH (09:00)
[2021-06-03] MEDS ORDERED: PYRIDOXINE HCL 50 MG TAB PO SCH (09:00)
[2021-06-03] MEDS ORDERED: amLODIPine BESYLATE 5 MG TAB PO SCH (09:00)
[2021-06-03] MEDS ORDERED: CALCIUM CARBONATE 1250MG TAB PO SCH (09:00)
[2021-06-03] MEDS ORDERED: MULTIVITAMIN TAB PO SCH (09:00)
[2021-06-03] MEDS ORDERED: PANTOprazole 40 MG TAB PO SCH (09:00)
--- NOTE | 2021-06-03 11:56 | XRay Report ---
XR chest 2V PA/lateral CLINICAL HISTORY: EXACT TIME ORDERED Evaluate for pneumothorax and l TECHNIQUE: AP and lateral radiographs of the chest was obtained. Comparison: Comparison is made to chest one view 05/28/2021 FINDINGS: Interval placement of dual-lead pacemaker. Bilateral shoulder arthroplasties are stable. The cardiome diastinal silhouette is normal. The lungs are clear. No evidence of pleural effusion or pneumothorax. IMPRESSION: No evidence of pneumothorax status post dual-lead pacemaker placement. ACT 112: Negative or not required by law. Electronically signed by: Asael Rodríguez M.D. 06/03/2021 11:55 AM
--- NOTE | 2021-06-04 06:18 | Electrocardiogram Report ---
Test Reason : Blood Pressure : / mmHG Vent. Rate : 077 BPM Atrial Rate : 077 BPM P-R Int : 196 ms QRS Dur : 078 ms QT Int : 392 ms P-R-T Axes : 043 -17 007 degrees QTc Int : 443 ms Normal sinus rhythm Incomplete right bundle branch block Abnormal ECG When compared with ECG of 28-MAY-2021 15:27, Premature atrial complexes are no longer Present Criteria for Anterior infarct are no longer Present Confirmed by Omid Luz ([id number]) on 06/04/2021 6:18:15 AM Referred By: Kandis Randolph Confirmed By:Omid Luz
== END 2021-06-03 12:55 | disposition home or self-care (01) ==
LOC: EP 11:45 → 2S 11:45

== ENCOUNTER 2022-02-04 05:04 | Observation (INO) ==
--- NOTE | 2022-01-12 10:05 | PAT Medication Instructions ---
Medication Instructions Date of Service January 12, 2022 Home Medications Medication Instructions Recorded propranolol 20 mg tablet 20 mg PO BID #60 tabs 11/05/21 finasteride 5 mg tablet 5 mg PO QAM #90 tabs 12/03/21 gabapentin 300 mg capsule 600 mg PO HS multivitamin (Multiple Vitamins tablet) 1 tab PO QAM cholecalciferol (vitamin D3) 25 mcg (1,000 unit) tablet 1,000 unit PO QAM pyridoxine (vitamin B6) 50 mg tablet 50 mg PO QAM aspirin 81 mg chewable tablet 81 mg PO QAM atorvastatin 40 mg tablet 40 mg PO QAM calcium carbonate 500 mg calcium (1,250 mg) tablet (Calcium 500) 500 mg PO QAM omeprazole 20 mg capsule,delayed release 20 mg PO QAM diphenhydramine 12.5 mg-acetaminophen 325 mg tablet 12.5 tab PO PM PRN Sleep losartan 100 mg tablet 100 mg PO QAM nitroglycerin 0.4 mg sublingual tablet 0.4 mg sublingual Q5M PRN Chest Pain oxycodone 5 mg tablet 5 mg PO .qhs PRN Pain, Severe amlodipine 10 mg tablet 5 mg PO QPM propranolol 20 mg tablet 20 mg PO BID finasteride 5 mg tablet 5 mg PO QAM Continue as directed nitroglycerin 0.4 mg sublingual tablet 0.4 mg sublingual Q5M PRN Chest Pain (if needed) DO NOT take the morning of surgery multivitamin (Multiple Vitamins tablet) 1 tab PO QAM cholecalciferol (vitamin D3) 25 mcg (1,000 unit) tablet 1,000 unit PO QAM pyridoxine (vitamin B6) 50 mg tablet 50 mg PO QAM calcium carbonate 500 mg calcium (1,250 mg) tablet (Calcium 500) 500 mg PO QAM losartan 100 mg tablet 100 mg PO QAM Take morning of surgery With a small sip of water, OTHERWISE NOTHING TO EAT OR DRINK AFTER MIDNIGHT: aspirin 81 mg chewable tablet 81 mg PO QAM (continue as normal unless told otherwise by surgeon) atorvastatin 40 mg tablet 40 mg PO QAM omeprazole 20 mg capsule,delayed release 20 mg PO QAM oxycodone 5 mg tablet 5 mg PO .qhs PRN Pain, Severe (if needed) propranolol 20 mg tablet 20 mg PO BID finasteride 5 mg tablet 5 mg PO QAM Take evening before surgery gabapentin 300 mg capsule 600 mg PO HS diphenhydramine 12.5 mg-acetaminophen 325 mg tablet 12.5 tab PO PM PRN Sleep (if needed) oxycodone 5 mg tablet 5 mg PO .qhs PRN Pain, Severe (if needed) amlodipine 10 mg tablet 5 mg PO QPM propranolol 20 mg tablet 20 mg PO BID Other Notes If you have any questions please call us at [phone] or [phone] or [phone] or [phone]
--- NOTE | 2022-01-13 12:05 | Anesthesiology Consultation ---
Date of Service January 13, 2022 Assessment & Plan (1) Encounter for pre-operative examination: - COVID screening: Per assessment on 01/13: No known COVID-19 positive contacts or current COVID-19 related symptoms. Travel screen negative. Patient vaccinated. At surgeon discretion if preop Covid testing being done. - Outpatient joint assessment: Pt currently scheduled for inpatient pathway. If surgeon requests review for outpatient joint pathway, patient is not recommended candidate for outpatient joint program from anesthesia standpoint. * Ankylosing spondylitis * - Awaiting surgeon-ordered cardiology preop evaluation (Dr. Sosa, scheduled 01/14) as well as most recent pacer check. Chart Review Chart Review: Patient seen in Pre Admission Testing Teaching & Discussion Pre-Anesthesia Teaching/Discussion Notes: Instructed NPO after midnight before surgery,except medications with 15 cc of water. Medication instructions provided according to the PAT guidelines. History Surgery Operation Date: 02/04/22 09:00 Proposed Procedures p Left Total Hip Arthroplasty - Juan Hoyos MD Height/Weight Height: 5 ft 5 in Weight: 70.6 kg Allergies Allergy/AdvReac Type Severity Reaction Status Date / Time hydrochlorothiazide Allergy Severe Rash Verified 01/11/22 16:07 doxazosin Allergy Mild RASH, Verified 01/11/22 16:07 ITCHING oxaprozin Allergy Unknown RASH, Verified 01/11/22 16:07 ITCHING mycophenolate mofetil AdvReac Severe "MAKES ME Verified 01/11/22 16:07 [From CellCept] EXTREMELY ILL" terazosin AdvReac Mild nervousness Verified 01/11/22 16:07 Medications Home Medications Medication Instructions Recorded Confirmed Last Taken gabapentin 300 mg capsule 600 mg PO HS 03/21/18 01/11/22 11/15/19 multivitamin (Multiple Vitamins 1 tab PO QAM 03/21/18 01/11/22 11/16/19 tablet) cholecalciferol (vitamin D3) 25 1,000 unit PO QAM 08/05/18 01/11/22 11/16/19 mcg (1,000 unit) tablet pyridoxine (vitamin B6) 50 mg 50 mg PO QAM 08/05/18 01/11/22 11/16/19 tablet aspirin 81 mg chewable tablet 81 mg PO QAM 09/03/19 01/11/22 11/16/19 atorvastatin 40 mg tablet 40 mg PO QAM 04/03/20 01/11/22 Unknown calcium carbonate 500 mg calcium 500 mg PO QAM 06/04/20 01/11/22 Unknown (1,250 mg) tablet (Calcium 500) omeprazole 20 mg capsule,delayed 20 mg PO QAM 06/04/20 01/11/22 Unknown release diphenhydramine 12.5 12.5 tab PO PM PRN Sleep 11/27/20 01/11/22 Unknown mg-acetaminophen 325 mg tablet losartan 100 mg tablet 100 mg PO QAM 11/27/20 01/11/22 Unknown nitroglycerin 0.4 mg sublingual 0.4 mg sublingual Q5M PRN Chest 11/27/20 01/11/22 Unknown tablet Pain oxycodone 5 mg tablet 5 mg PO .qhs PRN Pain, Severe 11/27/20 01/11/22 Unknown amlodipine 10 mg tablet 5 mg PO QPM 06/02/21 01/11/22 Unknown propranolol 20 mg tablet 20 mg PO BID #60 tabs 11/05/21 01/11/22 Unknown finasteride 5 mg tablet 5 mg PO QAM #90 tabs 12/03/21 01/11/22 Unknown Past Medical History Medical History Anemia Ankylosing spondylitis Remotely diagnosed Chronic, constant back pain BPH (benign prostatic hyperplasia) Chronic back pain Essential tremor Hands Hiatal hernia History of basal cell carcinoma HTN (hypertension) Lumbar stenosis Nephrolithiasis Osteoarthritis 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 Myocardial infarction Other Family history non-contributory No family history of adverse response to anesthesia No family history of allergies No family history of bleeding disorder Denies family history of Hearing loss Heart disease Stroke Asthma Past Surgical History Surgical History History of back surgery x 4 History of basal cell carcinoma (BCC) excision History of colonoscopy History of esophagogastroduodenoscopy (EGD) History of left shoulder replacement History of right shoulder replacement Past Anesthesia History No Hx of Anesthesia Complications and No Family Hx of Anesthesia Complications History of PONV No Hx of PONV and No Hx of Motion Sickness Social History Smoking Status: Never smoker Do You Dip or Chew Tobacco: No Hx Alcohol Use: Yes Alcohol type: wine alcohol intake frequency: holidays/special occasions only Hx Substance Use: No substance use type: does not use Review of Systems Patient denies chest pain, shortness of breath, fever, chills, cough, wheezing, palpitations. Physical Exam Vital Signs VITALS BP 137/91 P 68 TEMP 98.7 SP02 98%RA RESP 18 PHYSICAL Full cervical extension range of motion. Full TMJ range of motion. TMD 3.5 finger breaths Mallampati Score 1 Dentition: full upper/lower dentures Lungs: clear throughout to auscultation Cardiac: regular rate and rhythm, no murmurs noted Spine: normal Carotid arteries: negative bruit Extremities: no edema Lab Results Anesthesia Preop Results Results Anesthesia Widget: WBC 5.72 K/ul (4.8-10.8) 01/13/22 Hgb 13.6 g/dl (14.0-18.0) L 01/13/22 Hct 40.3 % (40.1-51.0) 01/13/22 Plt 230 K/uL (130-400) 01/13/22 Na 142 mmol/L (136-145) 01/13/22 K 3.6 mmol/L (3.5-5.1) 01/13/22 Cl 107 mmol/L (98-107) 01/13/22 CO2 30 mmol/L (21-32) 01/13/22 BUN 19 mg/dl (6-23) 01/13/22 Creat 1.30 mg/dl (0.6-1.4) 01/13/22 Glucose Level 80 mg/dl (70-99(Fasting)) 01/13/22 PT 10.5 Seconds (9.0-12.0) 01/13/22 PTT 24.7 Seconds (21.0-31.0) 01/13/22 INR 1.0 (0.9-1.1) 01/13/22 HA1c 5.7 % (4.5-5.6) H 01/13/22 Urine Color Yellow 01/13/22 Urine Appearance Clear (Clear) 01/13/22 Urine pH 6.5 (4.5-7.5) 01/13/22 Urine Specific [place] 1.018 (1.000-1.030) 01/13/22 Urine Protein Negative (Negative) 01/13/22 Urine Glucose (UA) Negative (Negative) 01/13/22 Urine Ketones Negative (Negative) 01/13/22 Urine Blood Negative (Negative) 01/13/22 Urine Nitrite Negative (Negative) 01/13/22 Urine Bilirubin Negative (Negative) 01/13/22 Urine Urobilinogen Negative (Negative) 01/13/22 Urine Leukocyte Esterase Negative (Negative) 01/13/22 Blood Type O Negative 01/13/22 Antibody Screen NEGATIVE 01/13/22 Testing Electrocardiogram Date: 09/06/21 Atrial-paced rhythm with prolonged AV conduction at 74 bpm. Possible. Infarct (cited on or before 06/03/2021 per senior occupational therapist review). Chest X-Ray Date: 09/06/21 FINDINGS: Single frontal view of the chest demonstrates the cardiomediastinal silhouette to be within normal limits. Permanent cardiac pacer is in place. The lungs are clear of alveolar opacities. There is no evidence for pleural effusion. There is no evidence for vascular congestion. There is no acute osseous pathology. IMPRESSION: No acute cardiopulmonary disease. Echocardiogram Date: 08/06/18 EF 60 to 65%. No regional motion abnormality. No LVH. No visualized ASD or PFO. No significant valvular disease. COVID-19 Risk Screen Screening Information COVID-19 Screen Date: 01/13/22 Exposure 21 Days Family/Household +COVID Last 21 Days: No Exposure 10 Days Any COVID Exposure Last 10 Days: No Symptoms Last 10 Days Experienced COVID Sx Last 10 Days: No + COVID 0-90 Days COVID + in Last 0-90 Days: No
--- NOTE | 2022-01-13 14:36 | History & Physical Report ---
Date of Service January 13, 2022 Assessment & Plan (1) Osteoarthritis of left hip: Plan: PRE-OP Diagnosis: Left hip osteoarthritis Planned Procedure: Left total hip arthroplasty Plan: Patient is scheduled to undergo this procedure at the [facility] with a 23-hour observation admission with Dr. Hoyos on , February 04, 2022. Risks and complications of the procedure such as: Infection, bleeding, pain, scarring, nerve blood vessel damage, weakness, wound problems, stiffness, incomplete relief of symptoms, hardware failure, hardware loosening, wear, fracture, tendon or ligament injury, dislocation, leg length inequality, blood clots, Embolism, heart attack, stroke and were explained to the patient at her visit today. Informed consent to perform the procedure was obtained. Patient also understands risks of proceeding with surgical intervention during the COVID-19 pandemic. Currently he is asymptomatic and has not been in contact with anyone positive for the virus. Patient has an appointment to meet with anesthesia later this morning and while there will obtain CBC with differential, complete metabolic panel, PT/INR, blood type and screen, urinalysis, urine culture and sensitivity, EKG, hemoglobin A1c and a nasal culture for MRSA. Patient will also need preoperative medical clearance from their primary care provider Dr. Meraz and credit adjuster Dr. Sosa. Patient states his appointment with Dr. Meraz is on January [address] Sosa tomorrow. Patient states that he plans on doing in-home physical therapy for the first 1 to 2 weeks postoperatively with [facility]. Patient has a walker, raised toilet seat, shower chair and will purchase a hip kit. During today's visit we reviewed the total hip packet as well as precautions. We discussed discharge planning from the hospital. I provided paperwork to obtain a handicap placard for their vehicle. We discussed lectures offered by [facility] in regards to joint replacement surgery via Zoom. I advised the patient that upon discharge from hospital we will prescribe a narcotic pain medication and anti-inflammatory. Patient will also be on an 81 mg aspirin twice daily for blood clot prevention. Patient will be scheduled for 2-week postoperative follow-up visit with myself on February 19 at 1:30 PM. At that visit we will Provide the patient with an order for outpatient physical therapy and rehab protocol. Patient verbalizes understanding of all information provided during today's visit. He thanks for the care that he received. If he has questions or concerns that should arise prior to his surgery, he will contact clinic. This chart was completed utilizing [employer] voice recognition software. Grammatical errors, random word insertions, pronoun errors, and in complete sentences are an occasional consequence of the system. Any questions or concerns about the content, text, or information contained within the body of this dictation should be addressed directly to the physician for clarification. History of Present Illness Chief Complaint: Chief Complaint: Left hip pain Primary Care Provider: Griffin Meraz History of Present Illness (including history relevant to procedure): 81-year-old male presents the clinic today for his preoperative history and physical. Patient complains of hip pain that has been ongoing for the past 5 months. Patient states pain seems to be exacerbated when he walks up steps or steep hills. He localizes most of his pain to the groin area. Patient states he is on oxycodone for chronic pain involving his back and shoulders which does help take the edge off. He states that he also had a ultrasound-guided corticosteroid injection into the left hip by Dr. Neal about 8 months ago which only provided relief for about 2 weeks. Patient states that he cares for his who had an [id number] amputation of her left lower extremity. He states the pain is making this difficult and is also affecting his activities of daily living. Review Of Systems: 12 point review of systems performed is unremarkable except for those things stated in the HPI past medical history. Past Medical History: Problems: Tarsal tunnel syndrome, bilateral Wrist pain Chronic kidney disease, stage 3b Back pain Osteopenia Atherosclerotic heart disease of [place] coronary artery with unspecified angina pectoris Ischemic colitis Thoracic radiculopathy DJD (degenerative joint disease) of thoracic spine Syncope CAD in [place] artery DJD (degenerative joint disease) of cervical spine Neck pain Anorexia Previous back surgery H/O shoulder replacement Elevated LFTs Premature beat Rash Acute left lumbar radiculopathy Ankylosing Spondylitis Degenerative joint disease (DJD) of hip Barretts esophagus Sacroiliitis BPH Hiatal hernia HTN - Hypertension GERD PROTEINURIA SHOULDER PAIN Tremor HEARING LOSS Hyperlipidemia Lumbar post-laminectomy syndrome Osteoarthrosis Dysphagia Raised prostate specific antigen Arthritis Basal cell carcinoma of nose Lipoma Procedure History Procedure Procedure Date Comments shoulder replacement b/l; Back surgery x 3; Doppler ultrasound of renal artery 10/01/2021 - Impression: 1. Bilateral nephrolihiasis. No hydronephrosis. 2. Slight inc reased cortical echogenicity, unchanged. This favors medical renal disease. 3. Prostatomeglay again noted. KUB X-ray 09/28/2021 - Bilateral nephrolithiasis. No pelvic stones are seen Ultrasound of kidney 09/15/2021 - 1. There is mild right hydroureteronephrosis. This is likely related to an obstructing ureteral stone which was seen byCT on 09/06/2021.2. Additional nonobstructing calculi are seen in both kidneys.3. There is no left-sided hydronephrosis.4. Prostatomegaly with evidence of chronic bladder outlet obstruction and urinary retention. CT of abdomen and pelvis 09/06/2021 - impression:1. 3mm ureteral calculus within the mid right ureter at the pelvic inlet. This produces mild to moderate right sided hydronephrosis and hydroureter to the level of the calculus.2. Blateral nonobstructing renal calculi are also present with no left sided hydronephrosis.3. Normal appendix4. No other evidence for the acute intra abdominal or pelvic abnormality on these limited noncontrast images Chest X-ray 09/06/2021 - Impression:No acute cardiopulmonary disease Insertion of dual chamber cardiac pacemaker pulse generator 06/02/2021 - History of see scanned report Plain X-ray of left hip 02/25/2021 - 1. No acute fracture or dislocation2. Moderate to severe left hip osteoarthritis Bone density scan 12/08/2020 - DualFemur T-score: -0.2, BMD: 1.079Left Forearm T-score: 0.2, BMD: 0.704 Thoracic spine 11/14/2019 - 1. No acute bony abnormality is identified 2. Osteopenia and degenerative change as above. Shave biopsy and cauterisation of skin 10/17/2019 - ED&C PFT 05/25/2018 - Impression: Normal baseline spirometry. Hip X-ray 05/19/2018 - Right1. No fractures or dislocations identified. Punch biopsy of skin 04/17/2018 Hip X-ray 12/26/2017 - Moderate left and mild to moderate right hip posterior arthritis. No acute fracture or dislocation identified. Vascular calcifications are noted. Discectomy changes with fusion hardware of the lumbar spine, partially imaged. No acute fracture or dislocation. Shave biopsy 12/12/2017 - A-left preauricularB- right worship Laminectomy 07/18/2017 - by Leonel Christine, CT of lumbar spine 06/20/2017 - 1. Extensive postsurgical changes of L1-L3 fusion with laminectomy defects of L2-L5. No hardware complications.2. Unchanged extensive chronic deformity of the L3-4 endplates.3. Old postsurgical changes of the L4-S1 vertebral bodies. No change in alignment with persisitent retrolisthesis of L3 on L4 and anterolisthesis of L4 on L5. Caudal epidural 05/05/2017 - Caudal epidural steriod injection under fluoroscopic guidance. Injection was tolerated well. Enteroscopy small bowel 03/16/2017 - Impression: Normal esophagus.Widely patent and non-obstructing Schatzki ring.medium-sized hiatal hernia.normal stomach.Normal examined duodenum.The examined portion of the jejunum was normal.No specimens collected. Colonoscopy 03/16/2017 - F/U with Dr. Quinn - Pathology results:Colon, site, undesignated, biopsies:1) Active colitis with features consistent with ischemic colitis. See comment. 2) Negative for dysplasia and malignancyComment: The biopsies show a variable appearance. Several bipsies show edematous lamina pripria and mild hyperplastic change whithout associated colitis. Two of the biopsies show active colitis with superficial acute inflammation, small glands and hyalinized stroma. The latter features are consistent with ischemic colitis. No dysplasia or malignancy is seen. Computed tomography of cervical spine without contrast (procedure) 03/14/2017 Computed tomography of head without contrast (procedure) 03/14/2017 Diagnostic radiography of abdomen (procedure) 03/14/2017 Plain chest X-ray (procedure) 03/14/2017 Small bowel enteroscopy normal 03/14/2017 - Widely patent & non-obstructing Schatzki ring. medium-sized hiatal hernia. MRI of brain without contrast 02/04/2017 - Moderate atrophy and white matter T2 hyperintense foci which likely reflect small vessel disease. EEG 02/03/2017 - normal awake & drowsy extended EEG. No electrographic seizures of epileptiform discharges. Computed tomography of head without contrast (procedure) 01/28/2017 Ultrasonography of retroperitoneum (procedure) 01/26/2017 Carotid artery doppler assessment 01/26/2017 - Mild plaque formation bilaterally. No significant stenotic process. Ultrasound of kidney 01/26/2017 - 1. No hydronephrosis.2. A 1.4 cm left renal cyst.3. Mildly enlarged prostate Computed tomography of lumbar spine without contrast (procedure) 07/25/2016 Diagnostic radiography of scapula (procedure) 04/15/2016 Radiography of shoulder (procedure) 04/15/2016 Computed tomography of cervical spine without contrast (procedure) 04/06/2016 Computed tomography of head without contrast (procedure) 04/06/2016 Computed tomography of lumbar spine without contrast (procedure) 04/06/2016 Computed tomography of thoracic spine without contrast (procedure) 04/06/2016 Plain chest X-ray (procedure) 04/06/2016 [facility] surgery 07/30/2015 - leftala bcc nodular ulcerative Colonoscopy 02/06/2015 - COLO to TI, sigmoid diverticulosis, repeat colo 5 years Esophagogastroduodenoscopy 10/24/2014 - Recommend NO further surveillance for Barretts. - EGD ring small HH, NO evidence of Barretts Chest x-ray 10/05/2014 - No acute process. CT of head 10/05/2014 - 1. No acute intracranial abnormality.2. Presumed mild microvascular ischemic changes. DEXA - Dual energy X-ray photon absorptiometry 01/17/2014 - normal, repeat in Dec 2015 Esophagogastroduodenoscopy 01/19/2012 - EGD normal exam. No path done. Surgery 07/06/2010 - Back surgery x's 3 Esophagogastroduodenoscopy 04/24/2009 - report does not indicate any path. [facility] website did not have any path. - EGD Schatzkis ring noted was dilated, antral erosions, duod bulb erosions. colonoscopy 12/27/2008 - repeat in 5 years Allergies and Sensitivities: CellCept(Severe acid reflux) hydroCHLOROthiazide(Rash) Social history: Completely unremarkable Family history: Heart disease, cancer and hypertension Current Home Meds: (Last Updated 01/13 11:15) acetaminophen-diphenhydrAMINE (Tylenol PM) amLODIPine (amLODIPine 5 mg oral tablet) 5 mg PO Daily aspirin (aspirin 81 mg oral delayed release tablet) 81 mg PO Daily atorvastatin (Lipitor 40 mg oral tablet) 40 mg PO qhs calcium-vitamin D (Caltrate 600 with D) PO Daily cholecalciferol (Vitamin D3 1000 intl units oral capsule) 1,000 Int_Unit PO Daily docusate-senna (Senokot S 50 mg-8.6 mg oral tablet) 1 tab PO qhs PRN: Constipation finasteride (finasteride 5 mg oral tablet) 5 mg PO Daily Women of childbearing age should not touch or handle broken tablets. - Zeferino Meraz 10/02 15:59 gabapentin (Neurontin 300 mg oral capsule) 600 mg PO qhs losartan (losartan 100 mg oral tablet) 100 mg PO Daily multivitamin 1 tab PO Daily nitroglycerin (Nitrostat 0.4 mg sublingual tablet) 0.4 mg SL q5min PRN: as needed for chest pain omeprazole (omeprazole 40 mg oral delayed release capsule) take 1 capsule by mouth once daily oxyCODONE (oxyCODONE 5 mg oral tablet) PRN: as needed for pain 1/2 to 1 tab PO qhs prn for pain propranolol (propranolol 20 mg oral tablet) 20 mg PO bid pyridoxine (Vitamin B6 50 mg oral tablet) 50 mg PO Daily Allergies Allergy/AdvReac Type Severity Reaction Status Date / Time hydrochlorothiazide Allergy Severe Rash Verified 01/11/22 16:07 doxazosin Allergy Mild RASH, Verified 01/11/22 16:07 ITCHING oxaprozin Allergy Unknown RASH, Verified 01/11/22 16:07 ITCHING mycophenolate mofetil AdvReac Severe "MAKES ME Verified 01/11/22 16:07 [From CellCept] EXTREMELY ILL" terazosin AdvReac Mild nervousness Verified 01/11/22 16:07 Home Medications Medication Instructions Recorded Confirmed Type gabapentin 300 mg capsule 600 mg PO 03/21/18 01/11/22 History multivitamin (Multiple Vitamins 1 tab PO M 03/21/18 01/11/22 History tablet) cholecalciferol (vitamin D3) 25 1,000 unit PO QAM 08/05/18 01/11/22 History mcg (1,000 unit) tablet pyridoxine (vitamin B6) 50 mg 50 mg PO QAM 08/05/18 01/11/22 History tablet aspirin 81 mg chewable tablet 81 mg PO QAM 09/03/19 01/11/22 History atorvastatin 40 mg tablet 40 mg PO QAM 04/03/20 01/11/22 History calcium carbonate 500 mg calcium 500 mg PO QAM 06/04/20 01/11/22 History (1,250 mg) tablet (Calcium 500) omeprazole 20 mg capsule,delayed 20 mg PO QAM 06/04/20 01/11/22 History release diphenhydramine 12.5 12.5 tab PO PM PRN Sleep 11/27/20 01/11/22 History mg-acetaminophen 325 mg tablet losartan 100 mg tablet 100 mg PO QAM 11/27/20 01/11/22 History nitroglycerin 0.4 mg sublingual 0.4 mg sublingual Q5M PRN Chest 11/27/20 01/11/22 History tablet Pain oxycodone 5 mg tablet 5 mg PO .qhs PRN Pain, Severe 11/27/20 01/11/22 History amlodipine 10 mg tablet 5 mg PO QPM 06/02/21 01/11/22 History propranolol 20 mg tablet 20 mg PO BID #60 tabs 11/05/21 01/11/22 Rx finasteride 5 mg tablet 5 mg PO QAM #90 tabs 12/03/21 01/11/22 Rx Past Med/Surg History Medical History Anemia Ankylosing spondylitis Remotely diagnosed Chronic, constant back pain BPH (benign prostatic hyperplasia) Chronic back pain Essential tremor Hands Hiatal hernia History of basal cell carcinoma HTN (hypertension) Lumbar stenosis Nephrolithiasis Osteoarthritis 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 Feels Safe at Home: Yes Assistive Devices: Denture - Upper, Denture - Lower and Glasses Review of Systems All systems reviewed & are unremarkable except as noted in HPI & below Physical Exam Physical Exam: Physical Exam: (relevant to the procedure, including heart and lung evaluation) General: Alert and oriented x3 with proper grooming and hygiene Eyes: Pupils are equal reactive to light with accommodation. Extraocular lids are intact Throat: Deferred due to COVID-19 precautions Cardiac: Regular rate and rhythm no murmurs or gallops appreciated Lungs: Auscultation throughout no wheezing, rales or rhonchi Abdomen: Mildly obese, nondistended, nontender with NABS Extremities: Left hip; flexion is to 110 degrees with referred pain in the groin. External rotation is limited to 35 degrees and internal rotation to 5 degrees. Patient has tenderness to palpation in the groin area. Straight leg raise test causes referred pain. Scour impingement test positive. Logroll test does not cause significant pain. Stinchfield test does cause some mild pain in the groin. Patient is neurovascularly intact left lower extremity. He does walk with a slightly antalgic gait Neuro: Cranial nerves II through XII are intact no motor or sensory deficit Skin: Normal appearance no open skin areas or discharge Results & Data ([facility]) Diagnostic Findings Studies (relevant to the procedure): X-rays done at a previous visit are reviewed. These show end-stage osteoarthritis of the left hip with joint space narrowing, subchondral sclerosis, and marginal osteophytes.
[2022-02-04] MEDS ORDERED: ROPIVACAINE 0.5% HCL/PF 150 MG, BUPIVACAINE 0.75% MPF 20 ML, EPINEPHrine 0.15 MG, Ketor... INFIL SCH (06:00)
[2022-02-04] MEDS ORDERED: FAMOTIDINE 20 MG TAB PO SCH (06:00)
[2022-02-04] MEDS ORDERED: dexAMETHasone 4 MG TAB PO SCH (06:00)
[2022-02-04] MEDS ORDERED: Scopolamine 1 MG TDSY TD SCH (06:00)
[2022-02-04] MEDS ORDERED: LR 60ML/HR IV SCH (06:00)
[2022-02-04] MEDS ORDERED: traMADol HCL 50 MG TABLET PO SCH (06:00)
[2022-02-04] MEDS ORDERED: TRANEXAMIC ACID 1,000 MG **IV Pre-op IV SCH (06:00)
[2022-02-04] MEDS ORDERED: TRANEXAMIC ACID 1,000 MG **IV Intra-op IV SCH (06:00)
[2022-02-04] MEDS ORDERED: ceFAZolin 2000MG 2,000 MG/15 ML SYR IV SCH (06:00)
[2022-02-04] MEDS ORDERED: CeleBREX 200 MG CAP PO SCH (06:00)
[2022-02-04] MEDS ORDERED: ACETAMINOPHEN 500 MG TAB PO SCH (06:00)
[2022-02-04] MEDS ORDERED: BUPIVACAINE 0.5 % 5 MG/1 ML PF 10ML VIAL ONE (06:29)
[2022-02-04] MEDS ORDERED: PROPOFOL IV EMULSION 10 MG/ML 20 ML VIAL IV ONE (06:46)
[2022-02-04] MEDS ORDERED: LIDOCAINE 2% MPF LOCAL 5 ML VIAL INFIL ONE (06:46)
[2022-02-04] MEDS ORDERED: MIDAZOLAM HCL 1 MG/ML 2ML VIAL ONE (06:47)
--- NOTE | 2022-02-04 06:47 | History & Physical Bridge Note ---
Date of Service February 04, 2022 History & Physical Bridge Note I have examined the patient, reviewed the History & Physical and in the interval since the performance of the History & Physical I have noted the following changes of clinical significance: no changes noted
[2022-02-04] MEDS ORDERED: ATROPINE SULFATE 0.1 MG/ML 10ML SYR IV PRN (06:50)
[2022-02-04] MEDS ORDERED: HYDROmorphone INJ 1 MG/ML SYRINGE IV PRN (06:50)
[2022-02-04] MEDS ORDERED: ONDANSETRON INJ 2 MG/ML 2 ML VIAL IV PRN ×2 (06:50→09:13)
[2022-02-04] MEDS ORDERED: ROCURONIUM BROMIDE 10 MG/ML 5 ML VIAL IV ONE (06:52)
[2022-02-04] MEDS ORDERED: fentaNYL citrate 100 MCG/2 ML VIAL ONE (06:52)
[2022-02-04] MEDS ORDERED: ORTHO JOINT ANESTHETIC ONE (07:10)
[2022-02-04] MEDS ORDERED: PHENYLEPHRINE HCL 10 MG/ML VIAL ONE (07:34)
[2022-02-04] MEDS ORDERED: SUGAMMADEX SODIUM 200 MG/2 ML VIAL IV ONE (08:30)
--- NOTE | 2022-02-04 09:09 | Operative Report ---
Post Operative Report Pre & Post Diagnosis Operation Date: 02/04/22 07:00 Pre-Op Diagnosis: Left Hip Osteoarthritis Post-Op Diagnosis: Left Hip Osteoarthritis I identified the patient and participated in the time-out.: Yes Procedure Operation Date: 02/04/22 07:00 Actual Procedures p Left Total Hip Arthroplasty--Uncemented(Left) - Juan Hoyos MD Surgeon Juan Hoyos MD Irrigator Overhead GERARDO Santana PA-C and Loy García MS-2. No resident or fellow was available Estimated Blood Loss 100 Findings Consistent with Post-Op Diagnosis Specimens Left femoral head Anesthesia Type General Complications none Disposition Disposition: Recovery Room Indications 81-year-old male, with left hip osteoarthritis refractory to conservative management. X-rays demonstrate [id number] disease. I had a long discussion with him about the risks and benefits of surgery, alternatives to surgery, and expected outcomes. He understands that because has a history of a lumbar spine fusion, he is at increased risk for postoperative instability. Therefore we decided on a dual mobility component for him. All questions were answered. Informed consent was signed. Description of Procedure Patient was identified in the preoperative holding area and the surgical site, left hip, was marked. A spinal anesthetic was placed, then the patient was brought back to the main operating room, placed in the operating table and moved into the lateral decubitus position. Axillary roll was placed. All bony prominences were padded. Perioperative antibiotics and tranexamic acid 1 gram IV were administered. Operative extremity was prepped and draped in the normal sterile fashion. Prior to incision a multidisciplinary timeout was called. All in the room were in agreement. We began by making an incision for a posterior approach to the hip. We dissected down through subcutaneous tissues to the level of the fascia. The fascia was incised in line with the incision. Charnley bow was placed. The trochanteric bursa was excised. The piriformis and short external rotators were dissected off the posterior aspect of the hip. A box cut was made in the capsule. The femoral head was dislocated. The femoral neck cut was made at our preoperative template. The acetabulum was then exposed. The labrum was sharply excised. Contents of the cotyloid fossa were removed with electrocautery. We then began reaming at a size 8 mm less than our preoperative template. We reamed up by [address] the way up to a size 54 mm cup. This gave us good bleeding cancellus bone circumferentially. The acetabulum was then irrigated out and dried. The real [place] Gription cup was then impacted down into position with 45 degrees of lateral opening and 25 degrees of anteversion. A single cancellous bone screw was placed up into the ilium. Excellent fixation was obtained. A trial liner for a 36 mm femoral head was then placed. Next we turned our attention to the femur. The lateral neck was removed with a box osteotome. Intramedullary guide was used followed by the lateralizing reamer. We then reamed up to a size 4 [place]om[place] stem. We then broached all the way up to a size 3. We began trialing with a high offset neck and a +1.5 head. Hip was reduced. Leg lengths were symmetric. The hip was stable in extension and external rotation, and stable in the sleeper position. At 90 degrees of hip flexion the hip could be internally rotated 55 degrees before levering out of the cup. I was very happy with the stability exam. Therefore the hip was dislocated and the femoral trial was removed. The acetabulum was re-exposed, and the trial liner was removed. A metal dual mobility liner liner was then impacted into the shell. The Crenshaw taper was checked to ensure that it had engaged which it had. The femur was re-exposed. The femoral canal was irrigated and dried. The real size 3 high offset [place] femoral stem was opened up. This was impacted down into position. It sat at the same level as the femoral trial. Therefore the +1.5 mm offset dual mobility component with a 47 mm outer ball and 28 mm ceramic inner ball was assembled on the back table and then gently impacted down onto the trunnion. The hip was atraumatically reduced. Another 1 gram of IV tranexamic acid was started prior to closure. The wound was irrigated out with sterile Betadine solution. The periarticular injection cocktail was then placed. The short external rotators, piriformis, and posterior capsule were repaired through drill holes in the greater trochanter using #2 Vicryl. The fascia was run with a looped #1 PDS. The subcutaneous layer was closed with #1 PDS. The dermal layer was closed with 2-0 Vicryl. Zip line was used for the skin followed by a Silverlon dressing. A compressive dressing was then placed. The patient was then rolled supine. Leg lengths were rechecked and were symmetric. An abduction pillow was placed. Sedation was lifted and the patient was transferred to recovery room in stable condition. Summary of implants: Depuy [place] Gription Acetabular Shell Sector Cup, 54 mm outer diameter [place] Cancellous bone screw, 6.5 x 30 mm [place] 54/47 dual mobility liner DePuy Bimentum polyethylene liner 28/47 Biolox delta ceramic femoral head 28 mm in diameter with +1.5 offset DePuy [place] Femoral stem with [place], 12/14 taper, size 3 high Postoperative course: Patient will be admitted to the hospital from the recovery room. Patient will be weightbearing as tolerated with posterior hip precautions. Aspirin for DVT prophylaxis I attest to the content of the Intraoperative Record and any orders documented therein. Any exceptions are noted below.
[2022-02-04] MEDS ORDERED: METOCLOPRAMIDE HCL INJ 5 MG/ML 2 ML VIAL IV PRN (09:13)
[2022-02-04] MEDS ORDERED: MAGNESIUM HYDROXIDE SUSP 30 ML UDC PO PRN (09:13)
[2022-02-04] MEDS ORDERED: TAMSULOSIN HCL 0.4 MG CAP PO PRN (09:13)
[2022-02-04] MEDS ORDERED: ALUMINUM/MAGNESIUM SUSP 30 ML UDC PO PRN (09:13)
[2022-02-04] MEDS ORDERED: HYDROmorphone INJ 0.5 MG/0.5 ML SYR IV PRN (09:13)
[2022-02-04] MEDS ORDERED: NALOXONE HCL 0.4 MG/1 ML VIAL/CARP IV PRN (09:13)
[2022-02-04] MEDS ORDERED: bisacodyL 10 MG SUPP PR PRN (09:13)
[2022-02-04] MEDS ORDERED: diphenhydrAMINE 50 MG/ML VIAL IV PRN (09:13)
--- NOTE | 2022-02-04 09:13 | Operative Report ---
Post Operative Report Pre & Post Diagnosis Operation Date: 02/04/22 07:00 Pre-Op Diagnosis: Left Hip Osteoarthritis Post-Op Diagnosis: Left Hip Osteoarthritis I identified the patient and participated in the time-out.: Yes Procedure Operation Date: 02/04/22 07:00 Actual Procedures p Left Total Hip Arthroplasty--Uncemented(Left) - Juan Hoyos MD Surgeon Juan Hoyos MD Bowstring Maker GERARDO Santana PA-C and Loy García MS-2. No resident or fellow was available Estimated Blood Loss 100 Findings Consistent with Post-Op Diagnosis Specimens femoral head Description of Procedure I was present during the entire case assisting with positioning, prepping, draping, wound retraction, wound closure, dressing and abduction pillow sathish cement. No fellow present. Please see Dr. Hoyos procedure note for specifics of the case. I attest to the content of the Intraoperative Record and any orders documented therein. Any exceptions are noted below.
[2022-02-04] MEDS ORDERED: DIPHENHYDRAMINE PO PRN (09:17)
[2022-02-04] MEDS ORDERED: NITROGLYCERIN SL 0.4 MG/TAB TAB SL PRN (09:17)
[2022-02-04] MEDS ORDERED: ACETAMINOPHEN PO PRN (09:17)
--- NOTE | 2022-02-04 10:06 | XRay Report ---
XR pelvis 1-2V routine CLINICAL HISTORY: In PACU - Post Surgical. Left hip prosthesis. COMPARISON STUDY: Pelvis 01/13/2022. FINDINGS: Status post a left total arthroplasty. The hardware appears intact. No fracture or dislocat ion. Mild osteoarthritis again noted within the right hip. IMPRESSION: Status post left total hip arthroplasty. No evidence for hardware complication. ACT 112: Negative or not required by law. Electronically signed by: Mike Cortez M.D. 02/04/2022 10:04 AM
[2022-02-04] MEDS: SODIUM CHLORIDE 0.9% 1000ML 1,000 ML IV SCH ×2 (10:41→20:05)
--- NOTE | 2022-02-04 12:51 | Anesthesiology Progress Note ---
Date of Service February 04, 2022 Anesthesia Post Procedure Vital Signs Vital Signs: Temp Pulse Pulse Resp BP Pulse Ox O2 Del Method 02/04/22 12:20 81 18 127/81 96 Room Air 02/04/22 10:20 Nasal Cannula 02/04/22 11:12 36.5 C 63 18 151/82 H 97 Nasal Cannula 02/04/22 10:48 36.4 C L 71 16 138/83 99 Nasal Cannula 02/04/22 10:00 36.3 C L 64 13 131/81 99 Nasal Cannula 02/04/22 09:50 36.1 C L 63 16 135/80 98 Nasal Cannula 02/04/22 09:40 63 15 135/81 100 Nasal Cannula 02/04/22 09:30 63 12 114/72 98 Oxymask 02/04/22 09:20 60 19 117/67 98 Oxymask 02/04/22 09:10 36.1 C L 62 16 128/78 100 Oxymask 02/04/22 06:13 143/87 H 02/04/22 05:32 36.7 C 73 20 163/108 H 97 Room Air O2 Flow Rate 02/04/22 12:20 02/04/22 10:20 2 02/04/22 11:12 3 02/04/22 10:48 2 02/04/22 10:00 2 02/04/22 09:50 2 02/04/22 09:40 2 02/04/22 09:30 10 02/04/22 09:20 10 02/04/22 09:10 10 02/04/22 06:13 02/04/22 05:32 Pain Intensity Left Hip: Pain Intensity: 6 Transfer of Care Handoff Completed per policy Notes Mental Status: alert / awake / arousable Patient Amnestic to Procedure: Yes Nausea / Vomiting: adequately controlled Pain: adequately controlled Airway Patency, RR, SpO2: stable & adequate BP & HR: stable & adequate Hydration State: stable & adequate Anesthetic Complications: no major complications apparent
[2022-02-04] MEDS: ACETAMINOPHEN 500 MG TAB PO SCH ×2 (13:23→22:28)
[2022-02-04] MEDS ORDERED: TRANEXAMIC ACID / 0.7% NACL 1,000 MG/100 ML BAG IV SCH (15:15)
[2022-02-04] MEDS: ceFAZolin 2000MG 2,000 MG/15 ML SYR IV SCH ×2 (15:23→22:29)
[2022-02-04] MEDS: Scopolamine CHECK PATCH PLACEMENT SCH ×2 (15:26→23:00)
[2022-02-04] MEDS: oxyCODONE HCL IR 5 MG TAB (IMMEDIATE RELEASE) PO PRN ×2 (17:00→21:32)
[2022-02-04] MEDS ORDERED: SENNA 8.6 MG TAB PO SCH (21:00)
[2022-02-04] MEDS ORDERED: amLODIPine BESYLATE 5 MG TAB PO SCH (21:00)
[2022-02-04] MEDS ORDERED: GABAPENTIN 300 MG CAP PO SCH (21:00)
[2022-02-04] MEDS: DOCUSATE SODIUM 100 MG CAP PO SCH (21:28)
[2022-02-04] MEDS: PROPRANOLOL HCL 20 MG TAB PO SCH (21:29)
[2022-02-05] MEDS: ACETAMINOPHEN 500 MG TAB PO SCH (05:05)
[2022-02-05] MEDS: SODIUM CHLORIDE 0.9% 1000ML 1,000 ML IV SCH (05:29)
[2022-02-05 07:39] LABS: Basophils # (auto) 0.01 K/uL (0-0.2); Basophils % (auto) 0.1 %; Hematocrit (blood only) 34.4 % (40.1-51.0); Hemoglobin 11.5 g/dl (14.0-18.0); Immature Granulocytes # (auto) 0.03 K/uL (0.00-0.02); Immature Granulocytes % (auto) 0.3 %; Lymphocytes # (auto) 0.78 K/uL (1.2-3.4); Lymphocytes % (auto) 7.9 %; Mean Corpuscular Hemoglobin 29.6 pg (25.0-34.0); Mean Corpuscular Hgb Conc 33.4 g/dL (32.0-36.0); Mean Corpuscular Volume 88.7 fL (80.0-100.0); Mean Platelet Volume 9.6 fL (9.4-12.4); Monocytes # (auto) 0.86 K/uL (0.24-0.82); Monocytes % (auto) 8.7 %; Neutrophils # (auto) 8.21 K/uL (1.4-6.5); Platelet Count 180 K/uL (130-400); RDW Coefficient of Variation 13.1 % (11.5-14.5); RDW Standard Deviation 41.8 fL (36.4-46.3); Red Blood Count 3.88 M/uL (4.63-6.08); White Blood Count 9.89 K/ul (4.8-10.8)
--- NOTE | 2022-02-05 07:46 | Orthopedic Progress Note ---
Date of Service February 05, 2022 Assessment & Plan (1) S/P total hip arthroplasty: Plan: Total hip precautions Weightbearing as tolerated with walker assistance Ice with easy wrap DVT prophylaxis with aspirin and LEO stockings Pain control with p.o. medication Abduction pillow use x6 weeks Keep Silverlon dressing in place Plan is to discharge home today with in-home physical therapy starting either tomorr or Tuesday Follow-up with [facility] orthopedics as previously scheduled With questions contact our clinic at [phone] Admission and Anticipated Discharge Date Admission Date: February 04, 2022 Subjective Is 81-year-old male is day 1 status post left total hip arthroplasty. He states he is doing very well. He states his pain is well controlled with p.o. pain medication. States that he has been able to from his bed to the bathroom without difficulty. He has no problems voiding. He denies chest pain, shortness of breath, fever, chills, sweats or numbness or tingling in his left lower extremity. Review of Systems Review of Systems: All systems reviewed & are unremarkable except as noted in Subjective Physical Exam Physical Exam: Left hip: Outer dressing was removed. Modelon is clean dry and intact. She is able to perform an active straight leg raise test. He is able to actively dorsi and plantarflex his foot without issue. Quad strength is 3+ out of 5. He tolerates light passive hip flexion as well as passive internal and external hip rotation. He is neurovascularly intact in the left lower extremity. Results & Data ([facility]) Vital Signs (Past 12 Hours) Vital Signs Temp Pulse Resp BP BP Pulse Ox O2 Del Method 02/05/22 07:14 36.8 C 82 18 134/77 95 Room Air 02/05/22 05:02 36.8 C 77 16 147/74 H 97 Room Air 02/05/22 02:20 36.8 C 86 16 144/77 H 94 Room Air 02/04/22 21:25 36.6 C 75 18 112/72 95 Room Air 02/04/22 19:55 36.8 C 90 18 125/78 95 Room Air Diagnostic Findings Laboratory Results WBC 9.89 K/ul (4.8-10.8) 02/05/22 07:18 RBC 3.88 M/uL (4.63-6.08) L 02/05/22 07:18 Hgb 11.5 g/dl (14.0-18.0) L 02/05/22 07:18 Hct 34.4 % (40.1-51.0) L 02/05/22 07:18 MCV 88.7 fL (80.0-100.0) 02/05/22 07:18 MCH 29.6 pg (25.0-34.0) 02/05/22 07:18 MCHC 33.4 g/dL (32.0-36.0) 02/05/22 07:18 RDW Std Deviation 41.8 fL (36.4-46.3) 02/05/22 07:18 RDW Coeff of Selina 13.1 % (11.5-14.5) 02/05/22 07:18 Plt Count 180 K/uL (130-400) 02/05/22 07:18 MPV 9.6 fL (9.4-12.4) 02/05/22 07:18 Immature Gran % (Auto) 0.3 % 02/05/22 07:18 Neut % (Auto) 83.0 % 02/05/22 07:18 Lymph % (Auto) 7.9 % 02/05/22 07:18 Lipscomb % (Auto) 8.7 % 02/05/22 07:18 Eos % (Auto) 0.0 % 02/05/22 07:18 Baso % (Auto) 0.1 % 02/05/22 07:18 Neut # (Auto) 8.21 K/uL (1.4-6.5) H 02/05/22 07:18 Lymph # (Auto) 0.78 K/uL (1.2-3.4) L 02/05/22 07:18 Lipscomb # (Auto) 0.86 K/uL (0.24-0.82) H 02/05/22 07:18 Eos # (Auto) 0.00 K/uL (0-0.50) 02/05/22 07:18 Baso # (Auto) 0.01 K/uL (0-0.2) 02/05/22 07:18 Immature Gran # (Auto) 0.03 K/uL (0.00-0.02) H 02/05/22 07:18 SARS-CoV-2, RNA, NAAT NEGATIVE (NEGATIVE) 02/04/22 05:25 Impressions Pelvis X-Ray 02/04/22 09:13 XR pelvis 1-2V routine CLINICAL HISTORY: In PACU - Post Surgical. Left hip prosthesis. COMPARISON STUDY: Pelvis 01/13/2022. FINDINGS: Status post a left total arthroplasty. The hardware appears intact. No fracture or dislocation. Mild osteoarthritis again noted within the right hip. IMPRESSION: Status post left total hip arthroplasty. No evidence for hardware complication. ACT 112: Negative or not required by law. Electronically signed by: Mike Cortez M.D. 02/04/2022 10:04 AM
--- NOTE | 2022-02-05 07:51 | Discharge Summary ---
Date of Service February 05, 2022 Admission HPI Per Admitting Provider History of Present Illness (including history relevant to procedure): 81-year-old male presents the clinic today for his preoperative history and physical. Patient complains of hip pain that has been ongoing for the past 5 months. Patient states pain seems to be exacerbated when he walks up steps or steep hills. He localizes most of his pain to the groin area. Patient states he is on oxycodone for chronic pain involving his back and shoulders which does help take the edge off. He states that he also had a ultrasound-guided corticosteroid injection into the left hip by Dr. Neal about 8 months ago which only provided relief for about 2 weeks. 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 He states the pain is making this difficult and is also affecting his activities of daily living. Review Of Systems: 12 point review of systems performed is unremarkable except for those things stated in the HPI past medical history. 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 Ischemic colitis Thoracic radiculopathy DJD (degenerative joint disease) of thoracic spine Syncope CAD in havasupai artery DJD (degenerative joint disease) of cervical spine Neck pain Anorexia Previous back surgery H/O shoulder replacement Elevated LFTs Premature beat Rash Acute left lumbar radiculopathy Ankylosing Spondylitis Degenerative joint disease (DJD) of hip Barretts esophagus Sacroiliitis BPH Hiatal hernia HTN - Hypertension GERD PROTEINURIA SHOULDER PAIN Tremor HEARING LOSS Hyperlipidemia Lumbar post-laminectomy syndrome Osteoarthrosis Dysphagia Raised prostate specific antigen Arthritis Basal cell carcinoma of nose Lipoma Procedure History Procedure Procedure Date Comments shoulder replacement b/l; Back surgery x 3; Doppler ultrasound of renal artery 10/01/2021 - Impression: 1. Bilateral nephrolihiasis. No hydronephrosis. 2. Slight increased cortical echogenicity, unchanged. This favors medical renal disease. 3. Prostatomeglay again noted. KUB X-ray 09/28/2021 - Bilateral nephrolithiasis. No pelvic stones are seen Ultrasound of kidney 09/15/2021 - 1. There is mild right hydroureteronephrosis. This is likely related to an obstructing ureteral stone which was seen byCT on 09/06/2021.2. Additional nonobstructing calculi are seen in both kidneys.3. There is no left-sided hydronephrosis.4. Prostatomegaly with evidence of chronic bladder outlet obstruction and urinary retention. CT of abdomen and pelvis 09/06/2021 - impression:1. 3mm ureteral calculus within the mid right ureter at the pelvic inlet. This produces mild to moderate right sided hydronephrosis and hydroureter to the level of the calculus.2. Blateral nonobstructing renal calculi are also present with no left sided hydronephrosis.3. Normal appendix4. No other evidence for the acute intra abdominal or pelvic abnormality on these limited noncontrast images Chest X-ray 09/06/2021 - Impression:No acute cardiopulmonary disease Insertion of dual chamber cardiac pacemaker pulse generator 06/02/2021 - History of see scanned report Plain X-ray of left hip 02/25/2021 - 1. No acute fracture or dislocation2. Moderate to severe left hip osteoarthritis Bone density scan 12/08/2020 - DualFemur T-score: -0.2, BMD: 1.079Left Forearm T-score: 0.2, BMD: 0.704 Thoracic spine 11/14/2019 - 1. No acute bony abnormality is identified 2. Osteopenia and degenerative change as above. Shave biopsy and cauterisation of skin 10/17/2019 - ED&C PFT 05/25/2018 - Impression: Normal baseline spirometry. Hip X-ray 05/19/2018 - Right1. No fractures or dislocations identified. Punch biopsy of skin 04/17/2018 Hip X-ray 12/26/2017 - Moderate left and mild to moderate right hip posterior arthritis. No acute fracture or dislocation identified. Vascular calcifications are noted. Discectomy changes with fusion hardware of the lumbar spine, partially imaged. No acute fracture or dislocation. Shave biopsy 12/12/2017 - A-left preauricularB- right catholic Laminectomy 07/18/2017 - by Leonel Christine, DO CT of lumbar spine 06/20/2017 - 1. Extensive postsurgical changes of L1-L3 fusion with laminectomy defects of L2-L5. No hardware complications.2. Unchanged extensive chronic deformity of the L3-4 endplates.3. Old postsurgical changes of the L4-S1 vertebral bodies. No change in alignment with persisitent retrolisthesis of L3 on L4 and anterolisthesis of L4 on L5. Caudal epidural 05/05/2017 - Caudal epidural steriod injection under fluoroscopic guidance. Injection was tolerated well. Enteroscopy small bowel 03/16/2017 - Impression: Normal esophagus.Widely patent and non-obstructing Schatzki ring.medium-sized hiatal hernia.normal stomach.Normal examined duodenum.The examined portion of the jejunum was normal.No specimens collected. Colonoscopy 03/16/2017 - F/U with Dr. Quinn - Pathology results:Colon, site, undesignated, biopsies:1) Active colitis with features consistent with ischemic colitis. See comment. 2) Negative for dysplasia and malignancyComment: The biopsies show a variable appearance. Several bipsies show edematous lamina pripria and mild hyperplastic change whithout associated colitis. Two of the biopsies show active colitis with superficial acute inflammation, small glands and hyalinized stroma. The latter features are consistent with ischemic colitis. No dysplasia or malignancy is seen. Computed tomography of cervical spine without contrast (procedure) 03/14/2017 Computed tomography of head without contrast (procedure) 03/14/2017 Diagnostic radiography of abdomen (procedure) 03/14/2017 Plain chest X-ray (procedure) 03/14/2017 Small bowel enteroscopy normal 03/14/2017 - Widely patent & non-obstructing Schatzki ring. medium-sized hiatal hernia. MRI of brain without contrast 02/04/2017 - Moderate atrophy and white matter T2 hyperintense foci which likely reflect small vessel disease. EEG 02/03/2017 - normal awake & drowsy extended EEG. No electrographic seizures of epileptiform discharges. Computed tomography of head without contrast (procedure) 01/28/2017 Ultrasonography of retroperitoneum (procedure) 01/26/2017 Carotid artery doppler assessment 01/26/2017 - Mild plaque formation bilaterally. No significant stenotic process. Ultrasound of kidney 01/26/2017 - 1. No hydronephrosis.2. A 1.4 cm left renal cyst.3. Mildly enlarged prostate Computed tomography of lumbar spine without contrast (procedure) 07/25/2016 Diagnostic radiography of scapula (procedure) 04/15/2016 Radiography of shoulder (procedure) 04/15/2016 Computed tomography of cervical spine without contrast (procedure) 04/06/2016 Computed tomography of head without contrast (procedure) 04/06/2016 Computed tomography of lumbar spine without contrast (procedure) 04/06/2016 Computed tomography of thoracic spine without contrast (procedure) 04/06/2016 Plain chest X-ray (procedure) 04/06/2016 [facility] surgery 07/30/2015 - leftala bcc nodular ulcerative Colonoscopy 02/06/2015 - COLO to TI, sigmoid diverticulosis, repeat colo 5 years Esophagogastroduodenoscopy 10/24/2014 - Recommend NO further surveillance for Barretts. - EGD ring small HH, NO evidence of Barretts Chest x-ray 10/05/2014 - No acute process. CT of head 10/05/2014 - 1. No acute intracranial abnormality.2. Presumed mild microvascular ischemic changes. DEXA - Dual energy X-ray photon absorptiometry 01/17/2014 - normal, repeat in Dec 2015 Esophagogastroduodenoscopy 01/19/2012 - EGD normal exam. No path done. Surgery 07/06/2010 - Back surgery x's 3 Esophagogastroduodenoscopy 04/24/2009 - report does not indicate any path. [facility] website did not have any path. - EGD Schatzkis ring noted was dilated, antral erosions, duod bulb erosions. colonoscopy 12/27/2008 - repeat in 5 years Allergies and Sensitivities: CellCept(Severe acid reflux) hydroCHLOROthiazide(Rash) Social history: Completely unremarkable Family history: Heart disease, cancer and hypertension Current Home Meds: (Last Updated 01/13 11:15) acetaminophen-diphenhydrAMINE (Tylenol PM) amLODIPine (amLODIPine 5 mg oral tablet) 5 mg PO Daily aspirin (aspirin 81 mg oral delayed release tablet) 81 mg PO Daily atorvastatin (Lipitor 40 mg oral tablet) 40 mg PO qhs calcium-vitamin D (Caltrate 600 with D) PO Daily cholecalciferol (Vitamin D3 1000 intl units oral capsule) 1,000 Int_Unit PO Daily docusate-senna (Senokot S 50 mg-8.6 mg oral tablet) 1 tab PO qhs PRN: Con stipation finasteride (finasteride 5 mg oral tablet) 5 mg PO Daily Women of childbearing age should not touch or handle broken tablets. - D Kt 10/02 15:59 gabapentin (Neurontin 300 mg oral capsule) 600 mg PO qhs losartan (losartan 100 mg oral tablet) 100 mg PO Daily multivitamin 1 tab PO Daily nitroglycerin (Nitrostat 0.4 mg sublingual tablet) 0.4 mg SL q5min PRN: as needed for chest pain omeprazole (omeprazole 40 mg oral delayed release capsule) take 1 capsule by mouth once daily oxyCODONE (oxyCODONE 5 mg oral tablet) PRN: as needed for pain 1/2 to 1 tab PO qhs prn for pain propranolol (propranolol 20 mg oral tablet) 20 mg PO bid pyridoxine (Vitamin B6 50 mg oral tablet) 50 mg PO Daily Admission Exam Per Admitting Provider Physical Exam: (relevant to the procedure, including heart and lung evaluation) General: Alert and oriented x3 with proper grooming and hygiene Eyes: Pupils are equal reactive to light with accommodation. Extraocular lids are intact Throat: Deferred due to COVID-19 precautions Cardiac: Regular rate and rhythm no murmurs or gallops appreciated Lungs: Auscultation throughout no wheezing, rales or rhonchi Abdomen: Mildly obese, nondistended, nontender with NABS Extremities: Left hip; flexion is to 110 degrees with referred pain in the groin. External rotation is limited to 35 degrees and internal rotation to 5 degrees. Patient has tenderness to palpation in the groin area. Straight leg raise test causes referred pain. Scour impingement test positive. Logroll test does not cause significant pain. Stinchfield test does cause some mild pain in the groin. Patient is neurovascularly intact left lower extremity. He does walk with a slightly antalgic gait Neuro: Cranial nerves II through XII are intact no motor or sensory deficit Skin: Normal appearance no open skin areas or discharge Principal Diagnosis Left hip osteoarthritis Discharge Exam Left hip: Outer dressing was removed. Silverlon is clean dry and intact. She is able to perform an active straight leg raise test. He is able to actively dorsi and plantarflex his foot without issue. Quad strength is 3+ out of 5. He tolerates light passive hip flexion as well as passive internal and external hip rotation. He is neurovascularly intact in the left lower extremity. Discharge Data Allergies Allergy/AdvReac Type Severity Reaction Status Date / Time hydrochlorothiazide Allergy Severe Rash Verified 02/04/22 05:38 doxazosin Allergy Mild RASH, Verified 02/04/22 05:38 ITCHING oxaprozin Allergy Unknown RASH, Verified 02/04/22 05:38 ITCHING mycophenolate mofetil AdvReac Severe "MAKES ME Verified 02/04/22 05:38 [From CellCept] EXTREMELY ILL" terazosin AdvReac Mild nervousness Verified 02/04/22 05:38 Procedures Performed Operation Date: 02/04/22 07:00 Actual Procedures p Left Total Hip Arthroplasty--Uncemented(Left) - Juan Hoyos MD Hospital Course (1) S/P total hip arthroplasty: Patient had an uneventful overnight stay following left total hip arthroplasty. He states he is doing very well. He is anxious to be discharged home today. He will start in-home physical therapy either Tuesday or Tuesday of this week. Total hip precautions Weightbearing as tolerated with walker assistance Ice with easy wrap DVT prophylaxis with aspirin and LEO stockings Pain control with p.o. medication Abduction pillow use x6 weeks Keep Silverlon dressing in place Plan is to discharge home today with in-home physical therapy starting either tom or Tuesday Follow-up with [facility] orthopedics as previously scheduled With questions contact our clinic at [phone] Total Time Total Time Spent Total Time Spent (In Minutes): 20 minutes Discharge Plan Discharge Items Patient Disposition: Home - Home Health Services Reason For Visit: Left Hip Osteoarthritis Discharge Diagnosis: Left Hip Osteoarthritis Activity: As commented below Lifting: None Bathing: Keep incision dry Bathing Comment: May shower tomorrow Sexual Activity: Wait until after follow-up appointment Exercise/Sports: Wait until after follow-up appointment Driving/Machine Use: No driving until cleared by business applications specialist Weightbearing: Left weightbearing Weightbearing Comment: as tolerated with walker assistance Non-emergency contact: Surgeon Call non-emergency contact if: you have any medication questions, your pain is not controlled, your temperature is above 101.5, your wound has increased drainage and your wound pain has increased Follow-up/Referrals: Griffin Meraz [Primary Care Provider] - Diet: Regular Addtl Attending Provider Instructions: Post-operative Instructions Dear Patient and Family/Friends, Before you are discharged from the hospital, it is important to know what to expect when you get home after surgery. To that end, we have created this sheet of discharge instructions which covers many commonly asked questions. Make sure you go through this sheet in its entirety with your nurse before you are discharged. Please note that we will go over the specifics of your surgery and recovery when you return for your first post-operative visit. Sincerely, Dr. Hoyos Medications 1. Oxycodone 5mg: resume your daily use of this medication. If you need a refill, contact our office. 2. Aspirin 81 mg: increase your daily aspirin to two tabs daily for 30 days post operatively. 3. Diclofenac Sodium 75 mg: take 1 tab twice daily for additional pain and inflammation relief. A prescription for this will be sent to your pharmacy with 1 refill. Pain Expect to be in a fair amount of pain after surgery. Remember, our goal is not to eliminate your pain, but to make it tolerable. It is a good idea to stay ahead of your pain by taking the medications you were prescribed once you get home. Typically, the pain starts improving 3-7 days after surgery. You should start weaning off the narcotic pain medication (oxycodone, hydrocodone, hydromorphone, morphine) as soon as your pain improves. Please call our office if your pain is not adequately controlled. Ice Ice your operative site at least 5 times a day for 15-30 minutes at a time. Make sure you have a thin cloth between the ice or cooling unit and your skin to prevent keen bite. This is especially important if you received a nerve block. Continue icing your operative site for the first 5-7 days after surgery, then as needed. Diet/Nausea/Vomiting Start by drinking clear liquids and eating crackers. If you can tolerate this, then you may resume your normal diet. If you feel nauseated or vomit, take Zofran/ondansetron (if prescribed). Please call our office if you have intractable nausea or vomiting, or, if after hours, you may go to the Emergency Room for help. Constipation Constipation is a common side effect of narcotic pain medication. If you have not had a bowel movement within 2 days after surgery, we recommend purchasing an over the counter laxative such as Milk of Magnesia, Dulcolax, or Miralax from a local pharmacy, and taking it as instructed. Call our clinic if any questions. Slings and Braces If you were placed in a sling or brace, it must be worn at all times, including sleep. You may remove your sling or brace for physical therapy, home exercises, and showering. The length of time you will be in your brace and range of motion restrictions depends on what surgery you had; these details will be reviewed at your first post-operative appointment. Nerve block The anesthesia team sometimes places a nerve block to help with post-operative pain control. This results in significant numbness and inability to move the extremity. The nerve block usually wears off in 8-12 hours, but sometimes can last up to 24 hours. Please call our office if you are still unable to move your extremity after 24 hours, unless you received a pain pump to take home. Nerve blocks typically wear off quickly, so start taking pain medication as soon as you start feeling soreness near your surgical site. Weight bearing and Range of Motion. Do not bear any weight through your operative extremity immediately after surgery. If you had upper extremity surgery, do not lift anything with that arm. If you are in a knee brace, keep it locked in place until your follow-up. We will discuss your weight bearing, range of motion, and lifting restrictions in detail at your first post-operative appointment. Continuous Passive Motion (CPM) Machine If you were prescribed a CPM machine, it will start after your first post- operative appointment, at which time we will give you instructions on the range of motion settings and duration of treatment Physical therapy You will be given a prescription for physical therapy or occupational therapy at your first post-operative appointment. Typically, patients start therapy within 1 week of surgery Wound care and showering We will inspect your wound at your first post-operative visit, and may do a dressing change at that time. Most patients will be in a water-proof dressing th at is removed 14 days after surgery. It is normal to see some dried blood on the dressing. Do not remove your dressing, paper strips or sutures yourself unless you are given permission. Showering is allowed the day after surgery. Do not scrub or remove any dressings. The wound should not be submerged underwater (i.e. in a bathtub or pool) until 4 weeks after surgery LEO stockings If you were given white stockings, these are to be worn at all times except to shower (on both legs) for the first 2 weeks after surgery. Driving You may not drive while taking narcotic pain medication or while in a cast, splint, sling or brace. You, the patient, need to make the final determination about when you are safe to drive, however, the earliest you may consider driving after surgery is below: Hand/Wrist/Elbow Surgery: 3 days Shoulder Surgery: 2 weeks Hip,/Knee/Ankle Surgery: 4 weeks Fracture repair: 6 weeks Return to Work Your return to work depends on what surgery was done and what type of work you do. Please bring any paperwork your employer needs completed to your first post-operative visit. Also, bring a description of your job duties, as this helps us to understand what risks you may face at work. Travel Avoid long distance travel (greater than 1 hour) in airplanes and cars for the first 6 weeks after surgery. If you must travel, you need to have a Doppler ultrasound done before you travel to rule out a blood clot in your legs. Follow-up You should have a follow-up appointment already scheduled 1-2 days after surgery. If not, please contact our office to make this appointment before you leave the hospital. When to call the office It is normal to have swelling and bruising in the limb that was operated on. This will improve with time. It is also normal to have fevers for the first 2 days after surgery. Reasons you should call your doctor include: Uncontrolled pain; Nausea, vomiting, or constipation that does not improve with medication; Fevers over 101.5, chills, sweats; Drainage or bleeding from the wound; Foul odor; Spreading areas of redness; Any other concerns Pending Studies at Discharge: No Stand-Alone Forms: [facility] Medications and DC Order Prescriptions: New diclofenac sodium 75 mg tablet,delayed release (DR/EC) 75 mg PO BID 30 Days Qty: 60 1RF Continued calcium carbonate [Calcium 500] 500 mg calcium (1,250 mg) tablet 500 mg PO QAM propranolol 20 mg tablet 20 mg PO BID Qty: 60 1RF diphenhydramine-acetaminophen 12.5-325 mg tablet 12.5 tab PO PM PRN (Reason: Sleep) losartan 100 mg tablet 100 mg PO QAM nitroglycerin 0.4 mg tablet, sublingual 0.4 mg sublingual Q5M PRN (Reason: Chest Pain) Rx Instructions: do not exceed 3 doses per episode oxycodone 5 mg tablet 5 mg PO .qhs PRN (Reason: Pain, Severe) finasteride 5 mg tablet 5 mg PO QAM Qty: 90 3RF atorvastatin 40 mg tablet 40 mg PO QAM cholecalciferol (vitamin D3) 1,000 unit Tablet 1,000 unit PO QAM pyridoxine (vitamin B6) 50 mg Tablet 50 mg PO QAM multivitamin [Multiple Vitamins] Tablet 1 tab PO QAM gabapentin 300 mg capsule 600 mg PO HS omeprazole 20 mg capsule,delayed release(DR/EC) 20 mg PO QAM amlodipine 10 mg tablet 5 mg PO QPM Changed aspirin 81 mg Tablet,Chewable 81 mg PO BID 30 Days Qty: 60 0RF Discharge Orders: Discharge Order (Routine); Ordered 02/05/22 Ordered By: Cuauhtemoc Santana Admission Data Admit Date/Time: 02/04/22 09:13 Attending Provider: Juan Hoyos Admit Provider: Juan Hoyos Primary Care Provider: Griffin Meraz
[2022-02-05] MEDS ORDERED: dexAMETHasone 4 MG TAB PO SCH (08:00)
[2022-02-05 08:09] LABS: BUN Creatinine Ratio 15.2 (10-20); Calcium 8.2 mg/dl (8.5-10.1); Creatinine Clr Calc Pharmacy 29.5 ml/min; Est GFR (African American) 42.6 ml/min; Est GFR (Non-African American) 36.7 ml/min; Potassium 4.3 mmol/L (3.5-5.1)
[2022-02-05] MEDS: PROPRANOLOL HCL 20 MG TAB PO SCH (08:36)
[2022-02-05] MEDS: DOCUSATE SODIUM 100 MG CAP PO SCH (08:37)
[2022-02-05] MEDS: Scopolamine CHECK PATCH PLACEMENT SCH (08:37)
[2022-02-05] MEDS: oxyCODONE HCL IR 5 MG TAB (IMMEDIATE RELEASE) PO PRN (08:44)
[2022-02-05] MEDS ORDERED: ATORVASTATIN 40 MG TAB PO SCH (09:00)
[2022-02-05] MEDS ORDERED: FINASTERIDE 5 MG TAB PO SCH (09:00)
[2022-02-05] MEDS ORDERED: NON-FORMULARY MEDICATION (Multivitamin [Multiple Vitamins] Tablet) PO SCH (09:00)
[2022-02-05] MEDS ORDERED: MULTIVITAMIN TAB PO SCH (09:00)
[2022-02-05] MEDS ORDERED: PANTOprazole 40 MG TAB PO SCH (09:00)
[2022-02-05] MEDS ORDERED: CALCIUM CARBONATE 500 MG CHEWABLE TAB PO SCH (09:00)
[2022-02-05] MEDS ORDERED: CHOLECALCIFEROL 1,000 UNITS 25 MCG TAB PO SCH (09:00)
[2022-02-05] MEDS ORDERED: ASPIRIN 81 MG ECTAB PO SCH (09:00)
[2022-02-05] MEDS ORDERED: LOSARTAN POTASSIUM 50 MG TAB PO SCH (09:00)
[2022-02-05] MEDS ORDERED: PYRIDOXINE HCL 50 MG TAB PO SCH (09:00)
== END 2022-02-05 12:32 | disposition home health service (06) ==
LOC: 3E 05:04 → ASU 05:04

== ENCOUNTER 2023-05-15 20:02 | Inpatient (IN) ==
--- OUTSIDE RECORDS SUMMARY | 2023-05-15 20:08 | External Medical Summary | Continuity of Care Document ---
Author Name Unknown Organization [facility] [address] [facility] [address] [place] [id number] Care Team Providers Care Cycle Analyst Name Role Phone Griffin Meraz Primary Care Physician [phone] Encounter [facility] [id number] Date(s): 04/12/23 - 04/12/23 [facility] [address] [facility] [address] [facility] [address], [address] [place] [address] [phone] Encounter Diagnosis Primary distal radioulnar joint osteoarthritis(Discharge Diagnosis) - 04/12/23 Osteoarthritis of left wrist(Discharge Diagnosis) - 04/12/23 Discharge Disposition: Home or Self Care Attending Physician: MD Bah Kenneth F Referring Physician: MD Hoyos Paul K Allergies, Adverse Reactions, Alerts Substance Reaction Severity Status terazosin nervousness Mild Active doxazosin RASH, ITCHING Mild Active oxaprozin RASH, ITCHING Active CellCept Severe acid reflux Active hydroCHLOROthiazide Rash Active Assessment and Plan Extracted from: Title:Clinical Document Author:MD Kemal, Jimi Date:04/12/23 ORTHOPAEDICS OUTPATIENT NOTE Name: BUSHRA SUN Patient Number: [id number] : 1940 Date of Service: 04/12/2023 Chief Complaint: L>R wrist pain HPI: Mr. Sun is an 82-year-old gentleman presenting to orthopedic hand clinic as a new patient for left greater than right wrist pain. Patient been dealing with wrist pain for many years now, he was up at [facility] and has been seeing providers up there for this issue. States that he has a brace that he uses constantly including sleeping with the brace, uses topical Voltaren gel however is noted worsening of the pain over the last year. He is also injections, most recently in February where the left DRUJ was injected however he did not have too much relief this time, the prior he had an additional injection which provided more relief although slightly unclear where this injection was. He states that the pain is more ulnar-sided, difficulty with lifting and mowing his lawn, pain is pretty persistent and he states that over the last few weeks it is not been quite as bothersome but for a while there he was severely affecting his daily life. He has had x-rays in the past which do demonstrate osteoarthritis of the radial ulnar joint as well as the DRUJ. Patient denies any significant numbness or tingling or focal weaknesses. Patient has ultrasound- guided injection in February into his DRUJ without significant relief. He states that the year prior he had an additional injection which is documented as the ulnar hamate joint but is slightly unclear which she did have more relief. Current Home Meds: (Last Updated 04/12 09:54) acetaminophen-diphenhydrAMINE (Tylenol PM) amLODIPine (amLODIPine 5 mg oral tablet) 1 tab PO Daily aspirin (aspirin 81 mg oral delayed release tablet) 81 mg PO Daily atorvastatin (atorvastatin 40 mg oral tablet) take 1 tablet by mouth at bedtime calcium-vitamin D (Caltrate 600 with D) PO Daily cholecalciferol (Vitamin D3) 125 mcg Daily docusate-senna (Senokot S 50 mg-8.6 mg oral tablet) 1 tab PO qhs PRN: Constipation finasteride (finasteride 5 mg oral tablet) 5 mg PO Daily Women of childbearing age should not touch or handle broken tablets. - Zeferino Meraz 10/02 15:59 gabapentin (gabapentin 300 mg oral capsule) 2 cap PO qhs losartan (losartan 100 mg oral tablet) 1 tab PO Daily multivitamin 1 tab PO Daily naloxone (Narcan 4 mg/0.1 mL nasal spray) 4 mg intranasal ONCE For use with opioid overdose; may repeat every 2 to 3 minutes until patient responds nitroglycerin (Nitrostat 0.4 mg sublingual tablet) 0.4 mg SL q5min PRN: as needed for chest pain omeprazole (omeprazole 40 mg oral delayed release capsule) 1 cap PO Daily oxyCODONE (oxyCODONE 5 mg oral tablet) PRN: as needed for pain 1/2 to 1 tab PO qhs prn for pain propranolol (propranolol 20 mg oral tablet) 20 mg PO bid pyridoxine (Vitamin B6 50 mg oral tablet) 50 mg PO Daily ubiquinone (Coenzyme Q10 200 mg oral capsule) 1 tab PO Daily Allergies and Sensitivities: oxaprozin(RASH, ITCHING) terazosin(nervousness) doxazosin(RASH, ITCHING) CellCept(Severe acid reflux) hydroCHLOROthiazide(Rash) Past Medical History: Problems: Hypertensive chronic kidney disease Anemia Stone in kidney Pacemaker Pacemaker Tarsal tunnel syndrome, bilateral Wrist pain Chronic kidney disease, stage 3b Back pain Osteopenia Thoracic radiculopathy DJD (degenerative joint disease) of thoracic spine Syncope CAD in [place] artery DJD (degenerative joint disease) of cervical spine Neck pain Anorexia Previous back surgery H/O shoulder replacement Elevated LFTs Premature beat Rash Acute left lumbar radiculopathy Degenerative joint disease (DJD) of hip Barretts esophagus BPH Hiatal hernia HTN - Hypertension GERD PROTEINURIA Hyperlipidemia HEARING LOSS Tremor SHOULDER PAIN Lumbar post-laminectomy syndrome Dysphagia Osteoarthrosis Raised prostate specific antigen Arthritis Basal cell carcinoma of nose Lipoma OBJECTIVE Vitals: Last Updated 04/12/23 09:53 Date Temp BP Location Pulse RR SpO2 Pain 04/12/23 8 03/18/23 110/80 70 12 98 0 03/15/23 0 Vital Signs are the last 3 documented. No Orthostatic Data Available Height and Weight: Last Updated 03/18/23 13:10 Date BMI Wt(kg) Wt(lb) Method Ht(cm) (ft-in) Method 03/18/23 25.42 69.3 152 Standing Scale 165.1 5-5 Standing 01/14/23 70.4 155 Standing Scale 01/12/23 69 152 Standing Scale Heights and Weights are the last 3 documented. Physical Exam General: Well-appearing, no acute distress, uncooperative LUE: Skin is clean, dry, intact without any open wounds, no erythema, does have some slight generalized swelling about the dorsal wrist. Patient does have some tenderness palpation about the dorsal wrist as well as ulnar wrist. Grinding to be noted with shucking of the distal ulna particularly from dorsal to volar which does recreate his pain. The patient additionally has pain with extension of his wrist with palpation of the dorsal wrist. Patient able to extend his thumb, make A-OK sign, cross fingers, palmarly abduct thumb. Edgar in M/U/R nerve distributions. Radial pulse palpable with BCR in all fingertips. ASSESSMENT: Mr. 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 PLAN: We had a long discussion with the patient as well as his daughter in clinic today. Patient has generalized wrist pain and has several reasons for it, he has known osteoarthritis of the radiocarpal joint as well as the distal radial ulnar joint. He has pain with both although distantly slightly more painful with provocative maneuvers of the DRUJ. The patient had an ultrasound-guided injection in February at [facility] into his DRUJ and did not have significant relief. At this time it is slightly difficult to really tell where the etiology of his pain is with several reasons for having the pain. Discussed possibility of performing a both diagnostic and therapeutic injection today in clinic and it was radiocarpal joint to see if this helps with this pain. We discussed how this could help be diagnostic of this does not improve we could discuss further options including possible surgical options depending on what the study provides us. Patient agrees with this plan, we injected his radiocarpal joint with procedure note below. Will see the patient for follow-up and in May up at [facility] for reassessment and see if symptoms improved. Patient understands and agrees with this plan, all questions and concerns were answered. PROCEDURE: Verbal consent was obtained prior to proceeding with the injection. The patient washed their hands and wrists with antibacterial soap. The patient's left wrist was identified as the site for injection and confirmed with the patient. Time out was called for safety. The skin overlying the dorsal aspect of the left wrist was cleaned with alcohol, anesthetized with ethyl chloride. Traction was held across the wrist, and 1 mL of 1% lidocaine and 8 mg dexamethasone were then injected into the left wrist joint. The patient tolerated without complication. The post-injection examination was stable. Post-injection instructions were given. No activity restrictions are required. Dr. Bah was present and performed the entirety of this procedure. Attending Addendum: I evaluated this patient with the resident and agree with the assessment and plan (Isabel Bah MD). Immunizations Given and Recorded Vaccine Date Status Refusal Reason influenza virus vaccine, inactivated 01/26/22 Give n influenza virus vaccine, inactivated 12/25/20 Give n influenza virus vaccine, inactivated 1 11/15/19 Re corded influenza virus vaccine, inactivated 10/31/18 Je rded influenza virus vaccine, inactivated 12/26/17 Give n influenza virus vaccine, inactivated 11/16/16 Give n influenza virus vaccine, inactivated 12/25/15 Je rded influenza virus vaccine, inactivated 11/26/14 Give n influenza virus vaccine, inactivated 01/11/14 Give n influenza virus vaccine, inactivated 01/10/12 Give n zoster vaccine, inactivated 02/04/20 Recorded zoster vaccine, inactivated 2 11/15/19 Recorded pneumococcal 23-valent vaccine 12/26/17 Given tetanus/diphtheria/pertuss, acel (Tdap) 10/20/17 R ecorded pneumococcal 13-valent vaccine 11/26/14 Given zoster vaccine live 3 09/01/07 Recorded tetanus toxoids-diphtheria, Td (Adult) 4 06/25/02 Recorded 1Result Comment: Given at [facility]. 2Result Comment: Given at [facility]. 3Result Comment: 2017-03-25: Historical information-source unspecified 4Result Comment: 2017-03-25: Historical information-source unspecified Medications amLODIPine 5 mg oral tablet Start: 02/21/23 11:39:00 EST, 1 tab, PO, Daily, Disp# 90 tab, Refills: 0, Pharmacy: [facility] #[id number] Start Date: 02/21/23 Status: Ordered aspirin 81 mg oral delayed release tablet Start: 11/14/19 14:04:00 EDT, 1 tab, PO, Daily Start Date: 11/14/19 Status: Ordered atorvastatin 40 mg oral tablet Start: 09/06/22 15:09:00 EDT, See Instructions, Disp# 90 tab, Refills: 3, take 1 tablet by mouth atbedtime, Pharmacy: [facility] #[id number] Start Date: 09/06/22 Status: Ordered Caltrate 600 with D Start: 08/11/10 13:19:00 EDT, PO, Daily, tab Start Date: 08/11/10 Status: Ordered Coenzyme Q10 200 mg oral capsule Start: 03/18/23 13:53:00 EST, See Instructions, Disp# 30 cap, 1 tab PO Daily, other Start Date: 03/18/23 Status: Ordered finasteride 5 mg oral tablet Start: 10/02/21 15:59:00 EDT, 1 tab, PO, Daily, Disp# 90 tab, Refills: 3, Pharmacy: [id number] Start Date: 10/02/21 Stop Date: 09/27/22 Status: Ordered gabapentin 300 mg oral capsule Start: 02/21/23 11:39:00 EST, 2 cap, PO, qhs, Disp# 180 cap, Refills: 0, Pharmacy: [facility] #[id number] Start Date: 02/21/23 Status: Ordered losartan 100 mg oral tablet Start: 02/21/23 11:39:00 EST, 1 tab, PO, Daily, Disp# 90 tab, Refills: 0, Pharmacy: [facility][id number] Start Date: 02/21/23 Status: Ordered multivitamin Start: 07/30/15 9:46:00, 1 tab, PO, Daily Start Date: 07/30/15 Status: Ordered Narcan 4 mg/0.1 mL nasal spray Start: 01/26/23 17:09:00 EST, 4 mg =, intranasal, ONCE, Disp# 2 each, Refills: 1, For use with opioid overdose; may repeat every 2 to 3 minutes until patient responds, Pharmacy: [facility] #[id number] Start Date: 01/26/23 Status: Ordered Nitrostat 0.4 mg sublingual tablet Start: 07/10/18 12:23:00 EDT, 1 tab, SL, q5min, Disp# 100 tab, Refills: 3, PRN: as needed for chestpain, Pharmacy: [facility] Start Date: 07/10/18 Stop Date: 11/07/18 Status: Ordered omeprazole 40 mg oral delayed release capsule Start: 02/21/23 11:39:00 EST, 1 cap, PO, Daily, Disp# 90 cap, Refills: 0, Pharmacy: [facility] #[id number] Start Date: 02/21/23 Status: Ordered oxyCODONE 5 mg oral tablet Start: 03/18/23 13:47:00 EST, See Instructions, Disp# 30 tab, Refills: 0, 1/2 to 1 tab PO qhs prn for pain, Note to Pharmacy: ongoing tx, PRN: as needed for pain, Pharmacy: [facility] #[id number] Start Date: 03/18/23 Status: Ordered propranolol 20 mg oral tablet Start: 11/12/21 10:19:00 EDT, 1 tab, PO, bid, Disp# 180 tab, Refills: 3, Pharmacy: [facility] #[id number] Start Date: 11/12/21 Status: Ordered Senokot S 50 mg-8.6 mg oral tablet Start: 06/26/21 10:23:00 EDT, 1 tab, PO, qhs, Disp# 60 tab, PRN: Constipation, Pharmacy: [facility] Start Date: 06/26/21 Status: Ordered Tylenol PM Start: 06/16/20 14:55:00 EDT Start Date: 06/16/20 Status: Ordered Vitamin B6 50 mg oral tablet Start: 05/12/18 11:45:00 EST, 1 tab, PO, Daily, Disp# 30 tab, other Start Date: 05/12/18 Status: Ordered Vitamin D3 Start: 09/20/22 13:37:00 EDT, 125 mcg =, Daily Start Date: 09/20/22 Status: Ordered Mental Status 04/12/23 Barriers to Learning one year None evide nt Mandatory Health Literacy Documentation Yes Health Literacy Communication Barriers N ever Primary Language Lebanese Problem List Condition Confirmation Course Effective Dates Status H ealth Status Informant Anemia Confirmed Active Arthritis Confirmed Active Back pain Confirmed Active Barretts esophagus Confirmed Active Basal cell carcinoma of nose 1 Confirmed 07/30/15 Active Tarsal tunnel syndrome, bilateral Confirmed Active BPH Confirmed Active Pacemaker Confirmed Active Pacemaker Confirmed Active 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 Active Hypertensive chronic kidney disease Confirmed Active Chronic kidney disease, stage 3b 2 Confirmed Active CAD in [place] artery Confirmed Active Dysphagia Confirmed Active Rash Confirmed Active GERD Confirmed Active Previous back surgery Confirmed Active HEARING LOSS Confirmed Active Hiatal hernia Confirmed Active H/O shoulder replacement Confirmed Active HTN - Hypertension Confirmed Active Hyperlipidemia Confirmed Active Stone in kidney Confirmed Active Lipoma Confirmed 04/19/11 Active Elevated LFTs Confirmed Active Degenerative joint disease (DJD) of hip Confirmed Active Anorexia Confirmed Active Lumbar post-laminectomy syndrome Confirmed Active Acute left lumbar radiculopathy Confirmed Active Neck pain Confirmed Active Osteoarthrosis Confirmed Active Osteopenia Confirmed Active Wrist pain Confirmed Active Premature beat Confirmed Active PROTEINURIA Confirmed Active Raised prostate specific antigen Confirmed Active SHOULDER PAIN Confirmed Active Syncope Confirmed Active DJD (degenerative joint disease) of thoracic spine Confirmed Active Thoracic radiculopathy Confirmed Active Tremor Confirmed Active 1left ala nodular ulcerative 2[facility]- Nephrology Diagnosis Diagnosis Type Effective Dates Health Status Clinical Service Informant Primary distal radioulnar joint osteoarthritis Discharge Diagnosis 04/12/23 Osteoarthritis of left wrist Discharge Diagnosis 04/12/23 Procedures Procedure Date Related Diagnosis Body Site Status Ultrasound of kidney 1 07/20/22 Co mpleted Ultrasound- Renal 2 07/05/22 Compl eted X-RAY CONSULTATION 3 07/05/22 Comp leted History of total hip arthroplasty 4 02/04/22 Completed TOTAL HIP ARTHROPLASTY 5 01/25/22 Completed Doppler ultrasound of renal artery 6 10/01/21 Completed KUB X-ray 7 09/28/21 Completed Ultrasound of kidney 8 09/15/21 Co mpleted Chest X-ray 9 09/06/[address] of abdomen and pelvis 10 09/06/21 Completed Insertion of dual chamber ca rdiac pacemaker pulse generator 11 06/02/21 Com pleted Plain X-ray of left hip 12 02/25/21 Completed Bone density scan 13 12/08/20 Comp leted Thoracic spine 14 11/14/19 Complet ed Shave biopsy and cauterisati on of skin 15 10/17/19 Completed PFT 16 05/25/18 Completed Hip X-ray 17 05/19/18 Completed Punch biopsy of skin 04/17/18 Comp leted Hip X-ray 18 12/26/17 Completed Shave biopsy 19 12/12/17 Completed Laminectomy 20 07/18/[address] of lumbar spine 21 06/20/17 Com pleted Caudal epidural 22 05/05/17 Comple bessy Colonoscopy 23, 24 03/16/17 Comple bessy Enteroscopy small bowel 25 03/16/17 Completed Computed tomography of cervi yu spine without contrast (procedure) 03/14/17 Com pleted Computed tomography of head without contrast (procedure) 03/14/17 Completed Diagnostic radiography of ab domen (procedure) 03/14/17 Completed Plain chest X-ray (procedure) 03/14/17 Completed Small bowel enteroscopy normal 26 03/14/17 Completed MRI of brain without contrast 27 02/04/17 Completed EEG 28 02/03/17 Completed Computed tomography of head without contrast (procedure) 01/28/17 Completed Carotid artery doppler assessment 29 01/26/17 Completed Ultrasonography of retroperi toneum (procedure) 01/26/17 Completed Ultrasound of kidney 30 01/26/17 C ompleted Computed tomography of lumba r spine without contrast (procedure) 07/25/16 Com pleted Diagnostic radiography of sc apula (procedure) 04/15/16 Completed Radiography of shoulder (procedure) 04/15/16 Completed Computed tomography of cervi yu spine without contrast (procedure) 04/06/16 Com pleted Computed tomography of head without contrast (procedure) 04/06/16 Completed Computed tomography of lumba r spine without contrast (procedure) 04/06/16 Com pleted Computed tomography of thora cic spine without contrast (procedure) 04/06/16 Com pleted Plain chest X-ray (procedure) 04/06/16 Completed Mohs surgery 31 07/30/15 Completed Colonoscopy 32 02/06/15 Completed Esophagogastroduodenoscopy 33, 34 10/24/14 Completed Chest x-ray 35 10/05/[address] of head 36 10/05/14 Completed DEXA - Dual energy X-ray sonam ton absorptiometry 37 01/17/14 Completed Esophagogastroduodenoscopy 38 01/19/12 Completed Surgery 39 07/06/10 Completed Esophagogastroduodenoscopy 40, 41 04/24/09 Completed colonoscopy 42 12/27/08 Completed shoulder replacement b/l; Ba ck surgery x 3; Completed 1Impression: 1. Bilateral nephrolithiasis. No hydronephrosis 2. Increased cortical echogenicity bilaterally suggestive of medical renal disease 3. Bilateral renal cysts 2impression: 1. Bilateral nephrolithiasis wihtout hydronephrosis. 2. Increased echogenicity of the renal parenchyma sugestive of chronic medical renal disease. 3. Prostamegaly. 3Impression: 1. Probable 4 mm proximal right ureteral calculus at the L4-L5 2. Bilateral nephrolithiasis. 4Left total hip arthroplasty- uncemented 5left 6Impression: 1. Bilateral nephrolihiasis. No hydronephrosis. 2. Slight increased cortical echogenicity, unchanged. This favors medical renal disease. 3. Prostatomeglay again noted. 7Bilateral nephrolithiasis. No pelvic stones are seen 81. There is mild right hydroureteronephrosis. This is likely related to an obstructing ureteral stone which was seen by CT on 09/06/2021. 2. Additional nonobstructing calculi are seen in both kidneys. 3. There is no left-sided hydronephrosis. 4. Prostatomegaly with evidence of chronic bladder outlet obstruction and urinary retention. 9Impression: No acute cardiopulmonary disease 10impression: 1. 3mm ureteral calculus within the mid right ureter at the pelvic inlet. This produces mild to moderate right sided hydronephrosis and hydroureter to the level of the calculus. 2. Blateral nonobstructing renal calculi are also present with no left sided hydronephrosis. 3. Normal appendix 4. No other evidence for the acute intra abdominal or pelvic abnormality on these limited noncontrast images 11History of see scanned report 121. No acute fracture or dislocation 2. Moderate to severe left hip osteoarthritis 13DualFemur T-score: -0.2, BMD: 1.079 Left Forearm T-score: 0.2, BMD: 0.704 141. No acute bony abnormality is identified 2. Osteopenia and degenerative change as above. 15ED&C 16Impression: Normal baseline spirometry. 17Right 1. No fractures or dislocations identified. 18Moderate left and mild to moderate right hip posterior arthritis. No acute fracture or dislocation identified. Vascular calcifications are noted. Discectomy changes with fusion hardware of the lumbarspine, partially imaged. No acute fracture or dislocation. 19A-left preauricular B- right hindu 20by Leonel Christine, DO 211. Extensive postsurgical changes of L1-L3 fusion with laminectomy defects of L2-L5. No hardware complications. 2. 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 3. Old postsurgical changes of the L4-S1 vertebral bodies. No change in alignment with persisitent retrolisthesis of L3 on L4 and anterolisthesis of L4 on L5. 22Caudal epidural steriod injection under fluoroscopic guidance. Injection was tolerated well. 23F/U with Dr. Quinn 24Pathology results: Colon, site, undesignated, biopsies: 1) Active colitis with features consistent with ischemic colitis. See comment. 2) Negative for dysplasia and malignancy Comment: The biopsies show a variable appearance. Several bipsies show edematous lamina pripria andmild hyperplastic change whithout associated colitis. Two of the biopsies show active colitis with superficial acute inflammation, small glands and hyalinized stroma. The latter features are consistent with ischemic colitis. No dysplasia or malignancy is seen. 25Impression: Normal esophagus. Widely patent and non-obstructing Schatzki ring. medium-sized hiatal hernia. normal stomach. Normal examined duodenum. The examined portion of the jejunum was normal. No specimens collected. 26Widely patent & non-obstructing Schatzki ring. medium-sized hiatal hernia. 27Moderate atrophy and white matter T2 hyperintense foci which likely reflect small vessel disease. 28normal awake & drowsy extended EEG. No electrographic seizures of epileptiform discharges. 29Mild plaque formation bilaterally. No significant stenotic process. 301. No hydronephrosis. 2. A 1.4 cm left renal cyst. 3. Mildly enlarged prostate 31leftala bcc nodular ulcerative 32COLO to TI, sigmoid diverticulosis, repeat colo 5 years 33Recommend NO further surveillance for Barretts. 34EGD ring small HH, NO evidence of Barretts 35No acute process. 361. No acute intracranial abnormality. 2. Presumed mild microvascular ischemic changes. 37normal, repeat in Dec 2015 38EGD normal exam. No path done. 39Back surgery x's 3 40report does not indicate any path. [facility] website did not have any path. 41EGD Schatzkis ring noted was dilated, antral erosions, duod bulb erosions. 42repeat in 5 years Social History Social History Type Response Smoking Status Never smoked cigaret rony Sex Male Ortho Outpt Note * MD Niurka, Peter Berger: MODIFY MD Bah Kenneth F: MODIFY, MODIFY Event Display: Ortho Outpt Note Authored Date: [id number] ORTHOPAEDICS OUTPATIENT NOTE Name: BUSHRA SUN Patient Number: [id number] : 1940 Date of Service: 04/12/2023 Chief Complaint: L>R wrist pain HPI: Mr. Sun is an 82-year-old gentleman presenting to orthopedic hand clinic as a new patient for left greater than right wrist pain. Patient been dealing with wrist pain for many years now, he was up at [place] [facility] and has been seeing providers up there for this issue. States that he has a brace that he uses constantly including sleeping with the brace, uses topical Voltaren gel however isnoted worsening of the pain over the last year. He is also injections, most recently in February where the left DRUJ was injected however he did not have too much relief this time, the prior he had an additional injection which provided more relief although slightly unclear where this injection was. He states that the pain is more ulnar-sided, difficulty with lifting and mowing his lawn, pain is pretty persistent and he states that over the last few weeks it is not been quite as bothersome but for a while there he was severely affecting his daily life. He has had x-rays in the past which do demonstrate osteoarthritis of the radial ulnar joint as well as the DRUJ. Patient denies any significant numbness or tingling or focal weaknesses. Patient has ultrasound-guided injection in February into his DRUJ without significant relief. He states that the year prior he had an additional injectionwhich is documented as the ulnar hamate joint but is slightly unclear which she did have more relief. Current Home Meds: (Last Updated 04/12 09:54) acetaminophen-diphenhydrAMINE (Tylenol PM) amLODIPine (amLODIPine 5 mg oral tablet) 1 tab PO Daily aspirin (aspirin 81 mg oral delayed release tablet) 81 mg PO Daily atorvastatin (atorvastatin 40 mg oral tablet) take 1 tablet by mouth at bedtime calcium-vitamin D (Caltrate 600 with D) PO Daily cholecalciferol (Vitamin D3) 125 mcg Daily docusate-senna (Senokot S 50 mg-8.6 mg oral tablet) 1 tab PO qhs PRN: Constipation finasteride (finasteride 5 mg oral tablet) 5 mg PO Daily Women of childbearing age should not touchor handle broken tablets. - Zeferino Meraz 10/02 15:59 gabapentin (gabapentin 300 mg oral capsule) 2 cap PO qhs losartan (losartan 100 mg oral tablet) 1 tab PO Daily multivitamin 1 tab PO Daily naloxone (Narcan 4 mg/0.1 mL nasal spray) 4 mg intranasal ONCE For use with opioid overdose; may repeat every 2 to 3 minutes until patient responds nitroglycerin (Nitrostat 0.4 mg sublingual tablet) 0.4 mg SL q5min PRN: as needed for chest pain omeprazole (omeprazole 40 mg oral delayed release capsule) 1 cap PO Daily oxyCODONE (oxyCODONE 5 mg oral tablet) PRN: as needed for pain 1/2 to 1 tab PO qhs prn for pain propranolol (propranolol 20 mg oral tablet) 20 mg PO bid pyridoxine (Vitamin B6 50 mg oral tablet) 50 mg PO Daily ubiquinone (Coenzyme Q10 200 mg oral capsule) 1 tab PO Daily Allergies and Sensitivities: oxaprozin(RASH, ITCHING) terazosin(nervousness) doxazosin(RASH, ITCHING) CellCept(Severe acid reflux) hydroCHLOROthiazide(Rash) Past Medical History: Problems: Hypertensive chronic kidney disease Anemia Stone in kidney Pacemaker Pacemaker Tarsal tunnel syndrome, bilateral Wrist pain Chronic kidney disease, stage 3b Back pain Osteopenia Thoracic radiculopathy DJD (degenerative joint disease) of thoracic spine Syncope CAD in [place] artery DJD (degenerative joint disease) of cervical spine Neck pain Anorexia Previous back surgery H/O shoulder replacement Elevated LFTs Premature beat Rash Acute left lumbar radiculopathy Degenerative joint disease (DJD) of hip Barretts esophagus BPH Hiatal hernia HTN - Hypertension GERD PROTEINURIA Hyperlipidemia HEARING LOSS Tremor SHOULDER PAIN Lumbar post-laminectomy syndrome Dysphagia Osteoarthrosis Raised prostate specific antigen Arthritis Basal cell carcinoma of nose Lipoma OBJECTIVE Vitals: Last Updated 04/12/23 09:53 Date Temp BP Location Pulse RR SpO2 Pain 04/12/23 8 03/18/23 110/80 70 12 98 0 03/15/23 0 Vital Signs are the last 3 documented. No Orthostatic Data Available Height and Weight: Last Updated 03/18/23 13:10 Date BMI Wt(kg) Wt(lb) Method Ht(cm) (ft-in) Method 03/18/23 25.42 69.3 152 Standing Scale 165.1 5-5 Standing 01/14/23 70.4 155 Standing Scale 01/12/23 69 152 Standing Scale Heights and Weights are the last 3 documented. Physical Exam General: Well-appearing, no acute distress, uncooperative LUE: Skin is clean, dry, intact without any open wounds, no erythema, does have some slight generalized swelling about the dorsal wrist. Patient does have some tenderness palpation about the dorsal wrist as well as ulnar wrist. Grinding to be noted with shucking of the distal ulna particularly fromdorsal to volar which does recreate his pain. The patient additionally has pain with extension of his wrist with palpation of the dorsal wrist. Patient able to extend his thumb, make A-OK sign, crossfingers, palmarly abduct thumb. Edgar in M/U/R nerve distributions. Radial pulse palpable with BCR in all fingertips. ASSESSMENT: Mr. 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 PLAN: We had a long discussion with the patient as well as his daughter in clinic today. Patient has generalized wrist pain and has several reasons for it, he has known osteoarthritis of the radiocarpal joint as well as the distal radial ulnar joint. He has pain with both although distantly slightly morepainful with provocative maneuvers of the DRUJ. The patient had an ultrasound-guided injection in February at [facility] into his DRUJ and did not have significant relief. At this time it is slightly difficult to really tell where the etiology of his pain is with several reasons for having the pain. Discussed possibility of performing a both diagnostic and therapeutic injection today in clinicand it was radiocarpal joint to see if this helps with this pain. We discussed how this could help be diagnostic of this does not improve we could discuss further options including possible surgical options depending on what the study provides us. Patient agrees with this plan, we injected his radi ocarpal joint with procedure note below. Will see the patient for follow-up and in May up at [facility] for reassessment and see if symptoms improved. Patient understands and agrees with this plan, all questions and concerns were answered. PROCEDURE: Verbal consent was obtained prior to proceeding with the injection. The patient washed their hands and wrists with antibacterial soap. The patient's left wrist was identified as the site for injection and confirmed with the patient. Time out was called for safety. The skin overlying the dorsal aspect of the left wrist was cleaned with alcohol, anesthetized with ethyl chloride. Tractionwas held across the wrist, and 1 mL of 1% lidocaine and 8 mg dexamethasone were then injected into the left wrist joint. The patient tolerated without complication. The post-injection examination wasstable. Post- injection instructions were given. No activity restrictions are required. Dr. Bah was present and performed the entirety of this procedure. Attending Addendum: I evaluated this patient with the resident and agree with the assessment and plan (Isabel Bah MD). Electronic Signature on File Electronically Reviewed/Signed by: Jimi Sommer MD Author Signature Dt/Tm:04/12/2023 11:42 AM Resident Division of Orthopaedics Electronically Reviewed/Signed by: Jimi Sommer MD Cosigner Signature Dt/Tm: 04/12/2023 12:00 PM Resident Division of Orthopaedics Electronically Reviewed/Signed by: Peter Bah MD Cosigner Signature Dt/Tm: 04/12/2023 12:58 PM Division of Orthopaedics ID Patient Care team information Care Team Personnel Name: MD Meraz Dongsheng Position: Physician - Family Med Member Role: Primary Care Provider Address: Address: [facility] [address] [address] Care Team Related Persons Name: SONNY SUN Address: [address] [phone] Name: SWETA SUN
--- NOTE | 2023-05-15 20:45 | Emergency Department Note ---
Impression & Plan Acute neck pain, CKD (chronic kidney disease) ED Provider Note NAME: BUSHRA SUN AGE: 82 SEX: M : 1940 ARRIVES VIA: Walk-In INFORMANT: Patient, ED PROVIDER(S): Eb Saucedo MD CHIEF COMPLAINT: Neck pain MEDICAL DECISION MAKING: Patient presents due to concern for acute on chronic neck pain. No inciting cause and is lateral in nature paraspinal likely associated with spasm of the trapezius. IV was established and blood work was obtained patient did receive medications. I did offer imaging but do not feel strongly the patient has had chronic discomfort is not midline no safety deposit supervisor strength problem weakness patient denies any heavy lifting or trauma. Patient the patient's family at bedside are comfortable this plan of care. Blood work shows normal white count H&H and platelet count creatinine 1.45 BSG 136 nonfasting and not DKA. Patient did require IV morphine. Upon subsequent reassessment the patient felt that his pain improved we will left go home and was planning to be discharged. As a nurse when to go discharge the patient the patient was having worsening pain and felt as though he cannot be discharged home. Given that the patient has received multiple medications without significant improvement in his pain I did speak with the on-call hospitalist Dr. Townsend and the patient was admitted. CT of the cervical spine pending at the time of admission. Discussion w/ other healthcare providers: Dr. Townsend inpatient medicine Prior /Outside records reviewed: None Differential diagnosis: Fracture, sprain, strain, subluxation, dislocation, contusion, ligamentous injury, neurovascular, as well as other etiologies were considered. Diagnostics, as interpreted by me: ECG: None Cardiac monitoring: An order was placed for continuous cardiac monitoring. The monitor shows a rate of 85 with sinus rhythm. Patient was placed on pulse oximetry Medical decision rules: None Imaging studies: See below HPI: Patient presents due to concern for neck pain. Patient states that he has always had some chronic neck discomfort but it seemed to worsen after being at the [facility] today. This was around 2 PM when he returned home and seem to worsen. It is primarily on the right side it is worse with palpation. No midline tenderness in the patient denies any numbness tingling or focal weakness of the extremities no falls or trauma no heavy lifting twisting or turning. PAST MEDICAL HISTORY: See Below PAST SURGICAL HISTORY: See Below SOCIAL HISTORY: See Below HOME MEDICATIONS: See Below ALLERGIES: See Below VITALS: See Below PHYSICAL EXAMINATION: GENERAL: NAD, non-toxic. Wearing glasses EYE EXAM: Normal conjunctiva. PERRL, no anisocoria and EOM's grossly intact w/o pain. OROPHARYNX: Moist mucus membranes, grossly normal dentition. NECK: Trachea midline, no stridor. Supple, no nuchal rigidity, no adenopathy, non-tender. No signs of meningismus. FROM of the neck with good chin to chest and neck extension. Right-sided paraspinal discomfort without midline C-spine TTP LUNGS: Clear to auscultation. Normal chest wall mechanics. HEART: NSR, no MRG. ABDOMEN: Abdomen soft, non-tender, no masses, no rebound or guarding. BACK: No CVA TTP. SKIN: No rashes and no bruising. UPPER EXTREMITIES: Upper extremities are grossly normal. Good safety deposit supervisor strength and no sensory deficits LOWER EXTREMITIES: Grossly normal, no edema. NEURO EXAM: A&O x3, cranial nerves II-XII grossly intact, normal speech, moves all 4 extremities. Past Med/Surg History Medical History Osteoarthritis 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 Nephrolithiasis Essential tremor Hands Anemia Stage 3b chronic kidney disease Hiatal hernia Sensorineural hearing loss (SNHL) of right ear with restricted hearing of left ear Ankylosing spondylitis Remotely diagnosed Chronic, constant back pain History of basal cell carcinoma Lumbar stenosis Chronic back pain BPH (benign prostatic hyperplasia) HTN (hypertension) Surgical History History of basal cell carcinoma (BCC) excision History of back surgery x 4 History of left shoulder replacement History of right shoulder replacement History of esophagogastroduodenoscopy (EGD) History of colonoscopy Status post placement of cardiac pacemaker Family History Mother , Mother age 99 with hypertension and arthritis Osteoarthritis Cancer Hypertension Father , Father age 48 of an [place]. Myocardial infarction Other Family history non-contributory No family history of adverse response to anesthesia No family history of allergies No family history of bleeding disorder Denies family history of Hearing loss Heart disease Stroke Asthma Social History Smoking Status: Never smoker Second Hand Exposure: No; Do You Dip or Chew Tobacco: No; Hx Alcohol Use: No Hx Substance Use: No Preferred Language: Lao Communication Ability: Effective Range Master Required: No Beliefs That Will Affect Care: None marital status: Current Living Situation: Alone Current Living Situation Comment: lives at home with and daughter current occupational status: retired 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 Feels Safe at Home: Yes Assistive Devices: Cane Allergies Allergies Allergy/AdvReac Type Severity Reaction Status Date / Time hydrochlorothiazide Allergy Severe Rash Verified 05/15/23 21:21 doxazosin Allergy Intermediate RASH, Verified 05/15/23 21:21 ITCHING oxaprozin Allergy Intermediate RASH, Verified 05/15/23 21:21 ITCHING mycophenolate mofetil AdvReac Severe "MAKES ME Verified 05/15/23 21:21 [From CellCept] EXTREMELY ILL" terazosin AdvReac Intermediate nervousness Verified 05/15/23 21:21 Home Meds Home Medications Medication Instructions Recorded Confirmed gabapentin 300 mg capsule 600 mg PO HS 03/21/18 05/15/23 multivitamin (Multiple Vitamins 1 tab PO M 03/21/18 05/15/23 tablet) cholecalciferol (vitamin D3) 25 1,000 unit PO QAM 08/05/18 05/15/23 mcg (1,000 unit) tablet pyridoxine (vitamin B6) 50 mg 50 mg PO [facility] 08/05/18 05/15/23 tablet atorvastatin 40 mg tablet 40 mg PO QAM 04/03/20 05/15/23 omeprazole 20 mg capsule,delayed 20 mg PO QAM 06/04/20 05/15/23 release diphenhydramine 12.5 12.5 tab PO PM PRN Sleep 11/27/20 05/15/23 mg-acetaminophen 325 mg tablet losartan 100 mg tablet 100 mg PO QAM 11/27/20 05/15/23 nitroglycerin 0.4 mg sublingual 0.4 mg sublingual Q5M PRN Chest 11/27/20 05/15/23 tablet Pain oxycodone 5 mg tablet 2.5 - 5 mg PO HS PRN Pain, Severe 11/27/20 05/15/23 amlodipine 10 mg tablet 5 mg PO QPM 06/02/21 05/15/23 calcium carbonate 500 mg calcium 500 mg PO QAM 05/15/23 05/15/23 (1,250 mg) tablet Previous Rx's Medication Instructions Recorded aspirin 81 mg chewable tablet 81 mg PO BID 30 days #60 tabs 02/05/22 diclofenac sodium 75 mg 75 mg PO BID 30 days #60 tabs 02/05/22 tablet,delayed release ondansetron 4 mg disintegrating 4 - 8 mg (1 - 2 x 4 mg) PO Q8H PRN 07/05/22 tablet nausea and vomiting #14 tabs propranolol 20 mg tablet 20 mg PO BID #180 tabs 08/11/22 finasteride 5 mg tablet 5 mg PO QAM #90 tabs 10/14/22 lidocaine 5 % topical patch 1 patch topical DAILY PRN pain #15 05/15/23 ea oxycodone 5 mg tablet 5 mg PO Q12H PRN pain #6 tabs 05/15/23 prednisone 20 mg tablet See Rx Instructions .Route 05/15/23 .COMPLEX 5 days #7 tabs Results & Data (ED) Vital Signs Vital Signs - 24 hr 05/15/23 20:04 Temperature 36.3 C L Temperature Source Temporal Artery Scan Pulse Rate 95 H Respiratory Rate 17 Blood Pressure 157/101 H Blood Pressure Mean 119 Pulse Oximetry 94 Oxygen Delivery Method Room Air Sepsis Recent Fever Within 48 Hours No Sepsis New/Unexplained Change in Mental Status No Sepsis Action Taken by Nursing No Action Required Home Medications Current Medication List: was personally reviewed by me Laboratory Data Attestation: I reviewed the patient's lab results. 05/18/23 04:22 05/18/23 04:22 Lab Results 05/15/23 Range/Units 21:30 WBC 7.02 (4.8-10.8) K/ul RBC 4.84 (4.70-6.10) M/uL Hgb 14.6 (14.0-18.0) g/dl Hct 42.3 (42.0-52.0) % MCV 87.4 (80.0-100.0) fL MCH 30.2 (25.0-34.0) pg MCHC 34.5 (32.0-36.0) g/dL RDW Std Deviation 39.8 (36.4-46.3) fL RDW Coeff of Selina 12.5 (11.5-14.5) % Plt Count 236 (130-400) K/uL MPV 9.8 (9.4-12.4) fL Immature Gran % (Auto) 0.3 % Neut % (Auto) 72.5 % Lymph % (Auto) 16.0 % [place] % (Auto) 8.5 % Eos % (Auto) 2.1 % Baso % (Auto) 0.6 % Neut # (Auto) 5.09 (1.40-6.50) K/uL Lymph # (Auto) 1.12 L (1.20-3.40) K/uL Montgomery # (Auto) 0.60 H (0.11-0.59) K/uL Eos # (Auto) 0.15 (0.00-0.50) K/uL Baso # (Auto) 0.04 (0.00-0.20) K/uL Immature Gran # (Auto) 0.02 (0.01-0.20) K/uL Sodium 140 (136-145) mmol/L Potassium 3.7 (3.5-5.1) mmol/L Chloride 105 (98-107) mmol/L Carbon Dioxide 26 (21-32) mmol/L Anion Gap 9 (3-11) BUN 16 (6-23) mg/dl Creatinine 1.45 H (0.6-1.4) mg/dl Est Cr Clr Drug Dosing 34.2 ml/min Est GFR ( Amer) 51.6 ml/min Est GFR (Non-Af Amer) 44.5 ml/min BUN/Creatinine Ratio 11.0 (10-20) Glucose 136 H (70-99(Fasting)) mg/dl Calcium 9.2 (8.6-10.3) mg/dl Administered Medications Acetaminophen (Acetaminophen 325 Mg Tab) 650 mg PO TID HOA Stop: 06/15/23 09:14 Last Admin: 05/17/23 21:04 Dose: 650 mg Documented By: Admin: 05/17/23 14:03 Dose: 650 mg Documented By: Admin: 05/17/23 08:52 Dose: 650 mg Documented By: Admin: 05/16/23 20:26 Dose: 650 mg Documented By: Admin: 05/16/23 16:31 Dose: 650 mg Documented By: Admin: 05/16/23 09:38 Dose: 650 mg Documented By: MARICARMEN Amlodipine Besylate (Amlodipine Besylate 5 Mg Tab) 5 mg PO QPM [facility] Stop: 06/15/23 20:59 Last Admin: 05/17/23 21:06 Dose: 5 mg Documented By: Admin: 05/16/23 20:27 Dose: 5 mg Documented By: AUGUST Aspirin (Aspirin 81 Mg Chew) 81 mg PO BID [facility] Stop: 06/15/23 08:59 Last Admin: 05/17/23 21:05 Dose: 81 mg Documented By: Admin: 05/17/23 08:53 Dose: 81 mg Documented By: Admin: 05/16/23 20:26 Dose: 81 mg Documented By: Admin: 05/16/23 07:58 Dose: 81 mg Documented By: MARICARMEN Atorvastatin Calcium (Atorvastatin 40 Mg Tab) [address] [facility] Stop: 06/15/23 08:59 Last Admin: 05/17/23 08:53 Dose: 40 mg Documented By: Admin: 05/16/23 07:59 Dose: 40 mg Documented By: MARICARMEN Calcium Carbonate (Calcium Carbonate 1250mg Tab) 1,[address] [facility] Stop: 06/15/23 08:59 Last Admin: 05/17/23 08:53 Dose: 1,250 mg Documented By: Admin: 05/16/23 08:00 Dose: 1,250 mg Documented By: MARICARMEN Diclofenac Sodium (Diclofenac Sod 1% Gel 100 Gm Tube) 2 gm EXT QID [facility]; Protocol Stop: 06/15/23 12:59 Last Admin: 05/17/23 21:06 Dose: 2 gm Documented By: Admin: 05/17/23 16:56 Dose: 2 gm Documented By: Admin: 05/17/23 12:35 Dose: 2 gm Documented By: Admin: 05/17/23 08:54 Dose: 2 gm Documented By: Admin: 05/16/23 20:24 Dose: 2 gm Documented By: Admin: 05/16/23 18:27 Dose: Not Given Documented By: Admin: 05/16/23 16:38 Dose: 2 gm Documented By: MARICARMEN Finasteride (Finasteride 5 Mg Tab) 5 mg PO QAM [facility] Stop: 06/15/23 08:59 Last Admin: 05/17/23 08:54 Dose: 5 mg Documented By: Admin: 05/16/23 08:02 Dose: 5 mg Documented By: MARICARMEN Gabapentin (Gabapentin 300 Mg Cap) 600 mg PO HS [facility] Stop: 06/15/23 20:59 Last Admin: 05/17/23 21:03 Dose: 600 mg Documented By: Admin: 05/16/23 20:27 Dose: 600 mg Documented By: AUGUST Heparin Sodium (Porcine) (Heparin Sod 5,000 Unit/0.5 Ml Vial) 5,000 units SQ Q12 [facility] Stop: 06/15/23 08:59 Last Admin: 05/17/23 21:08 Dose: 5,000 units Documented By: Admin: 05/17/23 08:55 Dose: 5,000 units Documented By: Admin: 05/16/23 20:28 Dose: 5,000 units Documented By: Admin: 05/16/23 08:07 Dose: 5,000 units Documented By: MARICARMEN Hydromorphone HCl (Hydromorphone Inj 0.5 Mg/0.5 Ml Syr) 0.5 mg IV Q3H PRN PRN Reason: Severe Pain (Scale 7, 8, 9,10) Stop: 05/30/23 05:51 Last Admin: 05/17/23 17:45 Dose: 0.5 mg Documented By: Admin: 05/17/23 12:35 Dose: 0.5 mg Documented By: Admin: 05/16/23 12:42 Dose: 0.5 mg Documented By: Admin: 05/16/23 06:24 Dose: 0.5 mg Documented By: AUGUST Lactated Ringer's (Lr) 1,000 mls @ 80 mls/hr IV .[id number] HOA Stop: 06/16/23 07:14 Last Admin: 05/17/23 21:08 Dose: 80 mls/hr Documented By: Infusion: 05/17/23 20:07 Dose: Infused Documented By: Admin: 05/17/23 07:37 Dose: 80 mls/hr Documented By: CEE Multivitamins (Multivitamin Tab) [address] [facility] Stop: 06/15/23 08:59 Last Admin: 05/17/23 08:55 Dose: 1 tab Documented By: Admin: 05/16/23 08:03 Dose: 1 tab Documented By: MARICARMEN Ondansetron HCl (Ondansetron Inj 2 Mg/Ml 2 Ml Vial) 4 mg IV Q6H PRN PRN Reason: Nausea Stop: 06/15/23 05:51 Last Admin: 05/16/23 09:55 Dose: 4 mg Documented By: MARICARMEN Oxycodone HCl (Oxycodone Hcl Ir 5 Mg Tab (Immediate Release)) 5 mg PO Q4H PRN PRN Reason: Moderate Pain (Scale 4, 5, 6) Stop: 05/30/23 05:51 Last Admin: 05/17/23 15:42 Dose: 5 mg Documented By: Admin: 05/17/23 09:16 Dose: 5 mg Documented By: Admin: 05/16/23 20:24 Dose: 5 mg Documented By: Admin: 05/16/23 07:48 Dose: 5 mg Documented By: MARICARMEN Pantoprazole Sodium (Pantoprazole 40 Mg Tab) [address] [facility] Stop: 06/15/23 08:59 Last Admin: 05/17/23 11:49 Dose: 40 mg Documented By: Admin: 05/16/23 08:03 Dose: 40 mg Documented By: MARICARMEN Propranolol HCl (Propranolol Hcl 20 Mg Tab) 20 mg PO BID [facility] Stop: 06/15/23 08:59 Last Admin: 05/17/23 21:03 Dose: 20 mg Documented By: Admin: 05/17/23 08:55 Dose: 20 mg Documented By: Admin: 05/16/23 20:26 Dose: 20 mg Documented By: Admin: 05/16/23 08:04 Dose: 20 mg Documented By: MARICARMEN Pyridoxine HCl (Pyridoxine Hcl 50 Mg Tab) [address] [facility] Stop: 06/15/23 08:59 Last Admin: 05/17/23 08:55 Dose: 50 mg Documented By: Admin: 05/16/23 08:04 Dose: 50 mg Documented By: MARICARMEN Vitamin D (Cholecalciferol 25 Mcg (1000 Units) Tab) [address] [facility] Stop: 06/15/23 08:59 Last Admin: 05/17/23 08:54 Dose: 25 mcg Documented By: Admin: 05/16/23 08:01 Dose: 25 mcg Documented By: MARICARMEN Discontinued Medications Acetaminophen (Acetaminophen 500 Mg Tab) 1,000 mg PO NOW STA Stop: 05/15/23 21:20 Last Admin: 05/15/23 21:29 Dose: 1,000 mg Documented By: Baclofen (Baclofen 20 Mg Tab) 20 mg PO TID [facility] Stop: 06/15/23 08:59 Last Admin: 05/16/23 20:25 Dose: 20 mg Documented By: Admin: 05/16/23 16:30 Dose: 20 mg Documented By: Admin: 05/16/23 08:00 Dose: 20 mg Documented By: MARICARMEN Cyclobenzaprine HCl (Cyclobenzaprine Hcl 5 Mg Tab) 5 mg PO NOW STA Stop: 05/15/23 21:20 Last Admin: 05/15/23 21:29 Dose: 5 mg Documented By: Dexamethasone (Dexamethasone Sod Inj 4 Mg/Ml Vial) 10 mg IV NOW STA Stop: 05/16/23 00:38 Last Admin: 05/16/23 00:56 Dose: 10 mg Documented By: CARMINA Diazepam (Diazepam 5 Mg Tablet) 5 mg PO HS [facility] Stop: 06/15/23 20:59 Last Admin: 05/16/23 20:24 Dose: 5 mg Documented By: AUGUST Diclofenac Sodium (Diclofenac Sodium 75 Mg Tabcr) 75 mg PO BID [facility] Stop: 06/15/23 08:59 Last Admin: 05/16/23 20:25 Dose: 75 mg Documented By: Admin: 05/16/23 08:02 Dose: 75 mg Documented By: MARICARMEN Hydromorphone HCl (Hydromorphone Inj 0.5 Mg/0.5 Ml Syr) 0.5 mg IV NOW STA Stop: 05/16/23 00:36 Last Admin: 05/16/23 00:56 Dose: 0.5 mg Documented By: CARMINA Dexamethasone 6 mg/ Syringe 1.5 mls @ 1 mls/min IV Q8H HOA Stop: 06/15/23 06:59 Last Admin: 05/16/23 07:58 Dose: 1 mls/min Documented By: MARICARMEN Magnesium Sulfate/Dextrose (Magnesium Sulfate / D5w) 1 gm in 100 mls @ 50 mls/hr IV Q2H HOA Stop: 05/16/23 22:29 Last Infusion: 05/17/23 01:59 Dose: Infused Documented By: Admin: 05/16/23 23:56 Dose: 50 mls/hr Documented By: Infusion: 05/16/23 23:56 Dose: Infused Documented By: Admin: 05/16/23 22:12 Dose: 50 mls/hr Documented By: Infusion: 05/16/23 22:12 Dose: Infused Documented By: Admin: 05/16/23 20:24 Dose: 50 mls/hr Documented By: Infusion: 05/16/23 20:24 Dose: Infused Documented By: Admin: 05/16/23 19:04 Dose: 50 mls/hr Documented By: MARICARMEN Lactated Ringer's (Lr) 1,000 mls @ 999 mls/hr IV .Q1H1M ONE Stop: 05/17/23 08:11 Last Infusion: 05/17/23 08:32 Dose: Infused Documented By: Admin: 05/17/23 07:36 Dose: 999 mls/hr Documented By: CEE Magnesium Sulfate/Dextrose (Magnesium Sulfate / D5w) 1 gm in 100 mls @ 50 mls/hr IV Q2H HOA Stop: 05/17/23 22:59 Last Infusion: 05/18/23 01:20 Dose: Infused Documented By: Admin: 05/17/23 23:15 Dose: 50 mls/hr Documented By: Infusion: 05/17/23 23:07 Dose: Infused Documented By: Admin: 05/17/23 21:07 Dose: 50 mls/hr Documented By: QUINTIN Lidocaine (Lidocaine 5% 1 Patch) 1 patch TD NOW STA Stop: 05/15/23 21:20 Last Admin: 05/15/23 21:30 Dose: 1 patch Documented By: Methylprednisolone (Methylprednisolone 125 Mg/2 Ml Vial) 125 mg IV NOW STA Stop: 05/15/23 21:20 Last Admin: 05/15/23 21:31 Dose: 125 mg Documented By: Miscellaneous (Remove Lidoderm Patch) 1 each N/A ONE ONE Stop: 05/16/23 09:01 Last Admin: 05/16/23 10:04 Dose: 1 each Documented By: MARICARMEN Morphine Sulfate (Morphine Sulfate 4 Mg/Ml 1 Ml Carp\\Vial) 4 mg IV NOW STA Stop: 05/15/23 22:56 Last Admin: 05/15/23 23:00 Dose: 4 mg Documented By: Discharge Plan Visit Data Chief Complaint: Neck Injury/Pain Stated Complaint: NECK PAIN ED Provider: Eb Saucedo Discharge Problem: Acute neck pain, CKD (chronic kidney disease) Patient Disposition: Home - Self-Care Condition: Good Discharge Instructions Interventions: ED Discharge Assessment Last Done: 05/16/23 05:16 Discharge Problem: CKD (chronic kidney disease) Qualifiers: Chronic kidney disease stage: unspecified stage Qualified Code(s): N18.9 - Chronic kidney disease, unspecified
[2023-05-15] MEDS: ACETAMINOPHEN 500 MG TAB PO STA (21:29)
[2023-05-15] MEDS: CYCLOBENZAPRINE HCL 5 MG TAB PO STA (21:29)
[2023-05-15] MEDS: LIDOCAINE 5% 1 PATCH TD STA (21:30)
[2023-05-15] MEDS: methylPREDNISolone 125 MG/2 ML VIAL IV STA (21:31)
[2023-05-15 21:50] LABS: Basophils # (auto) 0.04 K/uL (0.00-0.20); Basophils % (auto) 0.6 %; Eosinophils # (auto) 0.15 K/uL (0.00-0.50); Eosinophils % (auto) 2.1 %; Hematocrit (blood only) 42.3 % (42.0-52.0); Hemoglobin 14.6 g/dl (14.0-18.0); Immature Granulocytes # (auto) 0.02 K/uL (0.01-0.20); Immature Granulocytes % (auto) 0.3 %; Lymphocytes # (auto) 1.12 K/uL (1.20-3.40); Mean Corpuscular Hemoglobin 30.2 pg (25.0-34.0); Mean Corpuscular Hgb Conc 34.5 g/dL (32.0-36.0); Mean Corpuscular Volume 87.4 fL (80.0-100.0); Mean Platelet Volume 9.8 fL (9.4-12.4); Monocytes % (auto) 8.5 %; Neutrophils # (auto) 5.09 K/uL (1.40-6.50); Neutrophils % (auto) 72.5 %; Platelet Count 236 K/uL (130-400); RDW Coefficient of Variation 12.5 % (11.5-14.5); RDW Standard Deviation 39.8 fL (36.4-46.3); Red Blood Count 4.84 M/uL (4.70-6.10); White Blood Count 7.02 K/ul (4.8-10.8)
[2023-05-15 22:17] LABS: Calcium 9.2 mg/dl (8.6-10.3); Potassium 3.7 mmol/L (3.5-5.1)
[2023-05-15 22:23] LABS: Creatinine Clr Calc Pharmacy 34.2 ml/min; Est GFR (African American) 51.6 ml/min; Est GFR (Non-African American) 44.5 ml/min
[2023-05-15] MEDS: MoRPHine SULFATE 4 MG/ML 1 ML CARP\\VIAL IV STA (23:00)
[2023-05-16] MEDS: DEXAMETHASONE SOD INJ 4 MG/ML VIAL IV STA (00:56)
[2023-05-16] MEDS: HYDROmorphone INJ 0.5 MG/0.5 ML SYR IV STA (00:56)
--- NOTE | 2023-05-16 02:35 | CT Scan Report ---
Exam(s): CT C SPINE EXAM: CT Cervical Spine Without Intravenous Contrast CLINICAL HISTORY: Reason for exam: R sided neck pain. TECHNIQUE: Axial computed tomography images of the cervical spine without intravenous contrast. CTDI is 19.59 mGy and DLP is 365.54 mGy-cm. Automated exposure control was utilized for the study. A dose lowering technique was utilized adhering to the principles of ALARA. Moderate motion/shoulder artifact. COMPARISON: CT cervical spine 05/28/21. FINDINGS: Vertebrae: No acute fracture. Discs/spinal canal/neural foramina: Severe, diffuse degenerative disc and facet disease. No significant interval change. Soft tissues: Unremarkable. IMPRESSION: 1. Severe degenerative change, stable. 2. No acute fracture or interval change.. Electronically signed by: Trinity Zambrano M.D. 05/16/23 02:34 AM
--- NOTE | 2023-05-16 03:31 | History & Physical Report ---
Date of Service May 16, 2023 Assessment & Plan (1) Acute neck pain: (2) Degenerative joint disease of cervical spine: (3) HTN (hypertension): (4) Lumbar stenosis: (5) Stage 3b chronic kidney disease: Plan Acute worsening of chronic neck pain/severe cervical degeneration- Given methylprednisolone 125 mg IV and morphine sulfate 4 mg IV in the ED with no improvement Dexamethasone 6 mg IV every 8 hours Baclofen 20 mg p.o. 3 times daily Acetaminophen 650 mg by mouth every 6 hours as needed for mild pain or fever Oxycodone 5 mg by mouth every 4 hours as needed for moderate pain Dilaudid 0.5 mg IV every 3 hours as needed for severe pain Zofran 4 mg IV every [address] scan of cervical spine shows stable severe cervical degenerative disc disease Will consult orthopedic spine surgery and/for pain management Hypertension- Continue amlodipine, aspirin and propranolol Hold losartan BPH- Continue finasteride Monitor for possible urinary retention with increased pain medications History of Present Illness Chief Complaint: The patient presents to the emergency department with the acute onset worsening today of chronic neck pain after being at a [employer] sporting event Primary Care Provider: Griffin Meraz The patient is a 82-year-old male with a past medical history including CKD, hypertension, shoulder replacements, BPH, lumbar spinal stenosis, SNHL, thoracic facet syndrome, ureteral stones, osteoarthritis of hip, and status post total hip arthroplasty. The patient has undergone cervical spinal fusion in the past, and has always had chronic neck pain, but today is worsened considerably to the point that he gets severe sharp pains that are intolerable. Allergies Allergy/AdvReac Type Severity Reaction Status Date / Time hydrochlorothiazide Allergy Severe Rash Verified 05/15/23 21:21 doxazosin Allergy Intermediate RASH, Verified 05/15/23 21:21 ITCHING oxaprozin Allergy Intermediate RASH, Verified 05/15/23 21:21 ITCHING mycophenolate mofetil AdvReac Severe "MAKES ME Verified 05/15/23 21:21 [From CellCept] EXTREMELY ILL" terazosin AdvReac Intermediate nervousness Verified 05/15/23 21:21 Home Medications Medication Instructions Recorded Confirmed Type gabapentin 300 mg capsule 600 mg PO HS 03/21/18 05/15/23 History multivitamin (Multiple Vitamins 1 tab PO QAM 03/21/18 05/15/23 History tablet) cholecalciferol (vitamin D3) 25 1,000 unit PO QAM 08/05/18 05/15/23 History mcg (1,000 unit) tablet pyridoxine (vitamin B6) 50 mg 50 mg PO QAM 08/05/18 05/15/23 History tablet atorvastatin 40 mg tablet 40 mg PO QAM 04/03/20 05/15/23 History omeprazole 20 mg capsule,delayed 20 mg PO QAM 06/04/20 05/15/23 History release diphenhydramine 12.5 12.5 tab PO PM PRN Sleep 11/27/20 05/15/23 History mg-acetaminophen 325 mg tablet losartan 100 mg tablet 100 mg PO QAM 11/27/20 05/15/23 History nitroglycerin 0.4 mg sublingual 0.4 mg sublingual Q5M PRN Chest 11/27/20 05/15/23 History tablet Pain oxycodone 5 mg tablet 2.5 - 5 mg PO HS PRN Pain, Severe 11/27/20 05/15/23 History amlodipine 10 mg tablet 5 mg PO QPM 06/02/21 05/15/23 History aspirin 81 mg chewable tablet 81 mg PO BID 30 days #60 tabs 02/05/22 05/15/23 Rx diclofenac sodium 75 mg 75 mg PO BID 30 days #60 tabs 02/05/22 05/15/23 Rx tablet,delayed release ondansetron 4 mg disintegrating 4 - 8 mg (1 - 2 x 4 mg) PO Q8H PRN 07/05/22 05/15/23 Rx tablet nausea and vomiting #14 tabs propranolol 20 mg tablet 20 mg PO BID #180 tabs 08/11/22 05/15/23 Rx finasteride 5 mg tablet 5 mg PO QAM #90 tabs 10/14/22 05/15/23 Rx calcium carbonate 500 mg calcium 500 mg PO QAM 05/15/23 05/15/23 History (1,250 mg) tablet lidocaine 5 % topical patch 1 patch topical DAILY PRN pain #15 05/15/23 Rx ea oxycodone 5 mg tablet 5 mg PO Q12H PRN pain #6 tabs 05/15/23 Rx prednisone 20 mg tablet See Rx Instructions .Route 05/15/23 Rx .COMPLEX 5 days #7 tabs Past Med/Surg History Medical History Anemia Ankylosing spondylitis Remotely diagnosed Chronic, constant back pain BPH (benign prostatic hyperplasia) Chronic back pain Essential tremor Hands Hiatal hernia History of basal cell carcinoma HTN (hypertension) Lumbar stenosis Nephrolithiasis Osteoarthritis 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 Feels Safe at Home: Yes Assistive Devices: Walker Review of Systems Review of Systems: The patient denies chest pain, palpitations, shortness of breath, dyspnea on exertion, cough, lower extremity swelling, sore throat, fevers, chills, sweats, weight change, fatigue, nausea, vomiting, diarrhea , constipation, abdominal pain, pelvic pain, blood in urine or stool, dysuria, urinary frequency or urgency, lightheadedness, dizziness, headache, memory loss, loss of consciousness, rash, abnormal bruising or bleeding, imbalance, focal or generalized weakness, numbness or tingling in arms or legs, generalized arthralgias or myalgias, or night sweats. The review of systems is otherwise negative other than for that already noted above, and at least 10 systems have been reviewed. Physical Exam Physical Exam: The patient is awake, alert and oriented 3, well developed and well nourished, normocephalic and atraumatic, lying in bed and in moderate distress secondary to neck pain HEENT--PERRL, EOMI, mucous membranes and oropharynx normal Neck--supple. No JVD. No bruits. Thyroid normal, trachea midline, no adenopathy. Heart--normal S1 and S2. No murmurs, rubs or gallops. Lungs--clear bilaterally, no respiratory distress, no accessory muscle use. Abdomen--normal bowel sounds and soft. Nontender. Nondistended Extremities--no cyanosis or clubbing. No edema. Dermatologic--normal skin turgor, normal color, no abnormal lymph nodes, no rash. Neurologic--cranial nerves II through XII grossly intact. Rheumatologic--decreased range of motion of neck in all directions, with severe tightening of paraspinal muscles Psychiatric--normal affect. Results & Data Results & Data Vital Signs (Past 12 Hours) Vital Signs Temp Pulse Pulse Resp BP BP Pulse Ox 05/16/23 03:03 91 H 17 106/77 95 05/16/23 02:00 92 05/16/23 00:18 86 96 05/16/23 00:00 78 18 142/77 H 98 05/15/23 22:03 96 05/15/23 22:03 82 17 142/82 H 96 05/15/23 20:04 36.3 C L 95 H 17 157/101 H 94 O2 Del Method 05/16/23 03:03 Room Air 05/16/23 02:00 Room Air 05/16/23 00:18 Room Air 05/16/23 00:00 Room Air 05/15/23 22:03 Room Air 05/15/23 22:03 Room Air 05/15/23 20:04 Room Air Laboratory Results Laboratory Results WBC 7.02 K/ul (4.8-10.8) 05/15/23 21:30 RBC 4.84 M/uL (4.70-6.10) 05/15/23 21:30 Hgb 14.6 g/dl (14.0-18.0) 05/15/23: Hct 42.3 % (42.0-52.0) 05/15/23: MCV 87.4 fL (80.0-100.0) 05/15/23: MCH 30.2 pg (25.0-34.0) 05/15/23: MCHC 34.5 g/dL (32.0-36.0) 05/15/23: RDW Std Deviation 39.8 fL (36.4-46.3) 05/15/23: RDW Coeff of Selina 12.5 % (11.5-14.5) 05/15/23: Plt Count 236 K/uL (130-400) 05/15/23: MPV 9.8 fL (9.4-12.4) 05/15/23: Immature Gran % (Auto) 0.3 % 05/15/23: Neut % (Auto) 72.5 % 05/15/23: Lymph % (Auto) 16.0 % 05/15/23: [place] % (Auto) 8.5 % 05/15/23: Eos % (Auto) 2.1 % 05/15/23: Baso % (Auto) 0.6 % 05/15/23: Neut # (Auto) 5.09 K/uL (1.40-6.50) 05/15/23: Lymph # (Auto) 1.12 K/uL (1.20-3.40) L 05/15/23: [place] # (Auto) 0.60 K/uL (0.11-0.59) H 05/15/23: Eos # (Auto) 0.15 K/uL (0.00-0.50) 05/15/23: Baso # (Auto) 0.04 K/uL (0.00-0.20) 05/15/23: Immature Gran # (Auto) 0.02 K/uL (0.01-0.20) 05/15/23: Sodium 140 mmol/L (136-145) 05/15/23 21:30 Potassium 3.7 mmol/L (3.5-5.1) 05/15/23 21:30 Chloride 105 mmol/L (98-107) 05/15/23 21:30 Carbon Dioxide 26 mmol/L (21-32) 05/15/23 21:30 Anion Gap 9 (3-11) 05/15/23 21:30 BUN 16 mg/dl (6-23) 05/15/23 21:30 Creatinine 1.45 mg/dl (0.6-1.4) H 05/15/23 21:30 Est Cr Clr Drug Dosing 34.2 ml/min 05/15/23 21:30 Est GFR ( Amer) 51.6 ml/min 05/15/23 21:30 Est GFR (Non-Af Amer) 44.5 ml/min 05/15/23 21:30 BUN/Creatinine Ratio 11.0 (10-20) 05/15/23 21:30 Glucose 136 mg/dl (70-99(Fasting)) H 05/15/23 21:30 Calcium 9.2 mg/dl (8.6-10.3) 05/15/23 21:[address] 05/16/23 00:32 Exam(s): CT C SPINE EXAM: CT Cervical Spine Without Intravenous Contrast CLINICAL HISTORY: Reason for exam: R sided neck pain. TECHNIQUE: Axial computed tomography images of the cervical spine without intravenous contrast. CTDI is 19.59 mGy and DLP is 365.54 mGy-cm. Automated exposure control was utilized for the study. A dose lowering technique was utilized adhering to the principles of ALARA. Moderate motion/shoulder artifact. COMPARISON: CT cervical spine 05/28/21. FINDINGS: Vertebrae: No acute fracture. Discs/spinal canal/neural foramina: Severe, diffuse degenerative disc and facet disease. No significant interval change. Soft tissues: Unremarkable. IMPRESSION: 1. Severe degenerative change, stable. 2. No acute fracture or interval change.. Electronically signed by: Trinity Zambrano M.D. 05/16/23 02:34 AM Code Status & VTE Plan Code Status Full code VTE Prophylaxis Plan VTE Prophylaxis will be ordered: Yes PG Care Time/CCT Total # of Minutes Spent Total Time Spent with Patient: Total time spent is greater than 50% in coordination of care (as documented) at patient's floor/unit and/or counseling patient: Coding Level of Care Code 49944 INT INP/OBS CARE 375MIN Diagnoses Acute neck pain M54.2 Degenerative joint disease of cervical spine M47.812 HTN (hypertension) I10 Lumbar stenosis M48.061 Stage 3b chronic kidney disease N18.32
[2023-05-16] MEDS ORDERED: NITROGLYCERIN SL 0.4 MG/TAB TAB SL PRN (05:52)
[2023-05-16] MEDS ORDERED: ACETAMINOPHEN 325 MG TAB PO PRN (05:52)
[2023-05-16] MEDS: HYDROmorphone INJ 0.5 MG/0.5 ML SYR IV PRN (06:24)
[2023-05-16] MEDS ORDERED: diphenhydrAMINE HCl 12.5 MG/5 ML UDC PO PRN (06:24)
[2023-05-16] MEDS: oxyCODONE HCL IR 5 MG TAB (IMMEDIATE RELEASE) PO PRN (07:48)
[2023-05-16] MEDS: dexAMETHasone 6 MG in SYRINGE 0 ML IV SCH (07:58)
[2023-05-16] MEDS: ASPIRIN 81 MG CHEW PO SCH (07:58)
[2023-05-16] MEDS: ATORVASTATIN 40 MG TAB PO SCH (07:59)
[2023-05-16] MEDS: CALCIUM CARBONATE 1250MG TAB PO SCH (08:00)
[2023-05-16] MEDS: BACLOFEN 20 MG TAB PO SCH (08:00)
[2023-05-16] MEDS: CHOLECALCIFEROL 25 MCG (1000 UNITS) TAB PO SCH (08:01)
[2023-05-16] MEDS: FINASTERIDE 5 MG TAB PO SCH (08:02)
[2023-05-16] MEDS: DICLOFENAC SODIUM 75 MG TABCR PO SCH (08:02)
[2023-05-16] MEDS: MULTIVITAMIN TAB PO SCH (08:03)
[2023-05-16] MEDS: PANTOprazole 40 MG TAB PO SCH (08:03)
[2023-05-16] MEDS: PROPRANOLOL HCL 20 MG TAB PO SCH (08:04)
[2023-05-16] MEDS: PYRIDOXINE HCL 50 MG TAB PO SCH (08:04)
[2023-05-16] MEDS: HEPARIN SOD 5,000 UNIT/0.5 ML VIAL SQ SCH (08:07)
--- NOTE | 2023-05-16 09:04 | Hospitalist Progress Note ---
Date of Service May 16, 2023 Assessment & Plan (1) Acute neck pain: (2) Degenerative joint disease of cervical spine: (3) BPH (benign prostatic hyperplasia): (4) Previous back surgery: (5) H/O shoulder replacement: Plan Acute worsening of chronic neck pain/severe cervical degeneration -Given methylprednisolone 125 mg IV and morphine sulfate 4 mg IV in the ED with no improvement -Discontinued steroids -Baclofen 20 mg p.o. 3 times daily -Acetaminophen 650 mg by mouth every 6 hours as needed for mild pain or fever -Oxycodone 5 mg by mouth every 4 hours as needed for moderate pain -Dilaudid 0.5 mg IV every 3 hours as needed for severe pain -Zofran 4 mg IV every 6 hours as needed -CT scan of cervical spine shows stable severe cervical degenerative disc disease -Suspect that majority of symptoms due to muscular etiology -Ordered magnesium sulfate x4 bags for muscle relaxant effect, will start Valium HS and Voltaren Gel -Anticipate ongoing OMT at discharge for muscular symptoms Hypertension -Continue amlodipine, aspirin and propranolol -Hold losartan BPH -Continue finasteride -Monitor for possible urinary retention with increased pain medications Admission and Anticipated Discharge Date Admission Date: May 16, 2023 Supervising Physician Co-Signing Physician Notes I personally examined the patient and verified all mathis points of history and exam, discussed case, and agree with decision making with Dr Ndiaye Right-sided neck pain. No radicular symptoms. Chronic neck pain, but acute worsening just over the last day or so. Also has been under a ton of stress with his having just been on hospice and just having passed. Vitals noted, in general he is awake and alert pleasant but does appear to be somewhat uncomfortable with his neck. HEENT normocephalic atraumatic mucous membranes moist. Musculoskeletal/osteopathic shows right-sided paraspinals to be high tone, tender, decreased range of motiongentle myofascial done, patient tolerated well, not a ton of changed tissue texture change, but obviously not expected with 1 treatment given the overall situation. Neurovascularly appears to be intact. Mental status is intact. Neck pain/cervical somatic dysfunction/muscle spasmcontinue symptoms/spasm related treatment, gentle OMT. Home once the pain is tolerable. Would have him follow-up with a DO in his PCPs office for ongoing OMT as well. DVT prophylaxisheparin subcu. Otherwise as above Subjective Patient was seen and examined at bedside. States his neck is still quite painful, notes that he has had chronic neck pain for years which has gotten much worse over the past few days. He notes that when he was at a [employer] wrestling match the day before, pain had worsened throughout the day. His daughter also notes that his stress has been high lately as his about 2 weeks ago. Review of Systems Review of Systems: As per above Physical Exam Constitutional: WD/WN, vitals as above Eyes: + anicteric sclerae; no conjunctival abn ormality ENMT: Ears: no external ear abnormality Nose: no external nose abnormality Moist mucous membranes Respiratory: normal respiratory effort, lungs clear to auscultation Cardiovascular: Rate/Rhythm: regular rate and regular rhythm Extremities: no edema Musculoskeletal: Significant tenderness and hypertonicity of right sided SCM, cervical paraspinal musculature Strength intact Skin: no rashes, warm and dry Neurologic: no focal motor deficits Psychiatric: A+Ox3, euthymic affect Results & Data Results & Data Vital Signs (Past 12 Hours) Vital Signs Temp Pulse Resp BP Pulse Ox O2 Del Method 05/16/23 07:49 Room Air 05/16/23 07:24 36.6 C 93 H 16 106/79 93 Room Air 05/16/23 05:53 36.7 C 96 H 16 133/85 94 Room Air 05/16/23 05:00 89 17 133/94 92 Room Air 05/16/23 04:00 92 H 16 116/85 90 Room Air 05/16/23 03:03 91 H 17 106/77 95 Room Air 05/16/23 02:00 92 Room Air 05/16/23 00:18 86 96 Room Air 05/16/23 00:00 78 18 142/77 H 98 Room Air 05/15/23 22:03 96 Room Air 05/15/23 22:03 82 17 142/82 H 96 Room Air Resident Activity Tracking Resident Involvement: Resident Care Provided Care Provided: Adult Hospital Medicine
[2023-05-16] MEDS: ACETAMINOPHEN 325 MG TAB PO SCH (09:38)
[2023-05-16] MEDS: ONDANSETRON INJ 2 MG/ML 2 ML VIAL IV PRN (09:55)
[2023-05-16] MEDS: DICLOFENAC SOD 1% GEL 100 GM TUBE EXT SCH (16:38)
--- NOTE | 2023-05-16 18:08 | Billing Data ---
Date of Service May 16, 2023 Coding Level of Care Code 69532 SUB INP/OBS CARE MIN
[2023-05-16] MEDS: MAGNESIUM SULFATE / D5W 1 GM/100 ML BAG IV SCH (19:04)
[2023-05-16] MEDS: diazePAM 5 MG TABLET PO SCH (20:24)
[2023-05-16] MEDS: GABAPENTIN 300 MG CAP PO SCH (20:27)
[2023-05-16] MEDS: amLODIPine BESYLATE 5 MG TAB PO SCH (20:27)
--- NOTE | 2023-05-17 05:12 | Communication Note ---
Alerted by nurse of episode of dizziness/lightheadedness when Mr. Wiggins went to get up to go to the bathroom. Per nurse once he sat up in bed he grab his neck and became lightheaded. She stated that while he was sitting had some jerking of his arms and became drowsy. No LOC. Vital signs stable, SPO2= high 80s, improved with 2L NC. Saw pt at bedside. He denies ongoing symptoms; lightheadness, dizziness, pain, weakness, chest pain, dyspnea. He states that he does not recall what happened. POC glucose= 132. Had baclofen, Valium, gabapentin and oxycodone around 2029. On Exam: Constitutional: well-appearing, no acute distress, alert and able to answer questions; only orientated to person HEENT: NCAT, no conjunctival injection CV: regular rhythm, no murmur appreciated, extremities well-perfused, no LE edema Resp: CTABL, no wheezes/rales/rhonchi appreciated, no increased work of breathing Neuro: no focal neurologic deficit appreciated; CN II-XII intact Plan: Will get CMP, CBC, Mg and Head CT. Will monitor on telemetry. Consider EEG pending results. Date of Service: May 17, 2023
[2023-05-17 05:13] LABS: Basophils # (auto) 0.03 K/uL (0.00-0.20); Basophils % (auto) 0.2 %; Hematocrit (blood only) 41.3 % (42.0-52.0); Hemoglobin 14.5 g/dl (14.0-18.0); Immature Granulocytes # (auto) 0.09 K/uL (0.01-0.20); Immature Granulocytes % (auto) 0.5 %; Lymphocytes # (auto) 0.91 K/uL (1.20-3.40); Lymphocytes % (auto) 5.6 %; Mean Corpuscular Hemoglobin 30.8 pg (25.0-34.0); Mean Corpuscular Hgb Conc 35.1 g/dL (32.0-36.0); Mean Corpuscular Volume 87.7 fL (80.0-100.0); Mean Platelet Volume 9.6 fL (9.4-12.4); Monocytes % (auto) 4.3 %; Neutrophils # (auto) 14.65 K/uL (1.40-6.50); Neutrophils % (auto) 89.4 %; Platelet Count 266 K/uL (130-400); RDW Coefficient of Variation 12.5 % (11.5-14.5); Red Blood Count 4.71 M/uL (4.70-6.10); White Blood Count 16.38 K/ul (4.8-10.8)
[2023-05-17 05:30] LABS: Albumin Globulin Ratio 1.4 (0.9-2); Albumin Level 3.8 gm/dl (3.4-5.0); BUN Creatinine Ratio 17.7 (10-20); Bilirubin,Total 0.7 mg/dl (0.2-1.0); Calcium 8.9 mg/dl (8.6-10.3); Creatinine Clr Calc Pharmacy 24.4 ml/min; Est GFR (African American) 34.4 ml/min; Est GFR (Non-African American) 29.6 ml/min; Globulin 2.7 gm/dl (2.5-4.0); Potassium 4.3 mmol/L (3.5-5.1); Total Protein 6.5 gm/dl (6.0-8.3)
--- NOTE | 2023-05-17 05:44 | CT Scan Report ---
Exam(s): CT HEAD Without Contrast EXAM: CT Head Without Intravenous Contrast CLINICAL HISTORY: Reason for exam: Altered Mental Status. TECHNIQUE: Axial computed tomography images of the head/brain without intravenous contrast. CTDI is 46.48 mGy and DLP is 799.24 mGy-cm. Automated exposure control was utilized for the study. A dose lowering technique was utilized adhering to the principles of ALARA. COMPARISON: May 28, 2021 FINDINGS: Brain: Chronic, small vessel ischemic changes in the white matter. No acute intracranial hemorrhage, edema or abnormal mass-effect. Ventricles: Unremarkable. No ventriculomegaly. Bones/joints: Unremarkable. No acute fracture. Soft tissues: Unremarkable. Sinuses: Unremarkable as visualized. No acute sinusitis. Mastoid air cells: Unremarkable as visualized. No mastoid effusion. IMPRESSION: No acute findings in the head/brain. Electronically signed by: Homero Rich MD 05/17/23 05:43 AM
[2023-05-17] MEDS: LACTATED RINGER'S 1,000 ML IV ONE (07:36)
[2023-05-17] MEDS: LACTATED RINGER'S 1,000 ML IV SCH (07:37)
[2023-05-17] MEDS ORDERED: ARTIFICIAL TEARS OPB PRN (08:18)
--- NOTE | 2023-05-17 17:24 | Hospitalist Progress Note ---
Date of Service May 17, 2023 Assessment & Plan (1) Acute neck pain: (2) Degenerative joint disease of cervical spine: (3) BPH (benign prostatic hyperplasia): (4) Previous back surgery: (5) H/O shoulder replacement: Plan Acute worsening of chronic neck pain/severe cervical degeneration -Given methylprednisolone 125 mg IV and morphine sulfate 4 mg IV in the ED with no improvement -Discontinued steroids -Baclofen decreased to 10 mg p.o. 3 times daily -Acetaminophen 650 mg by mouth every 6 hours as needed for mild pain or fever -Oxycodone 5 mg by mouth every 4 hours as needed for moderate pain -Dilaudid 0.5 mg IV every 3 hours as needed for severe pain -Zofran 4 mg IV every 6 hours as needed -CT scan of cervical spine shows stable severe cervical degenerative disc disease -Suspect that majority of symptoms due to muscular etiology -Ordered additional 2g of magnesium sulfate, added Voltaren gel -holding additional Valium due to concern of delirium -Anticipate ongoing OMT at discharge for muscular symptoms Hypertension -Continue amlodipine, aspirin and propranolol -Hold losartan BPH -Continue finasteride -Monitor for possible urinary retention with increased pain medications Admission and Anticipated Discharge Date Admission Date: May 16, 2023 Supervising Physician Co-Signing Physician Notes I personally examined the patient and verified all mathis points of history and exam, discussed case, and agree with decision making with Dr Pierre a little delirious but does seem to have less neck pain today - still bad but maybe not quite as bad. fairly sleepy when i see him - had better HPI/ROS conversation with dr pierre. Vitals noted, sleeping awakens mild distress but less than before. no focal neuro deficits. exam otherwise as above Neck pain/cervical somatic dysfunction/muscle spasmcontinue symptoms/spasm related treatment, gentle OMT. Home once the pain is tolerable. a little delirious through night and early AM (d/w pt and dtr yesterday that i was little concerned given his age that aggressive treatment might lead to this - but all were in agreement potential benefit was worth the risk). dtr asks for spine eval - consult placed. Would have him follow-up with a DO in his PCPs office for ongoing OMT as well. DVT prophylaxisheparin subcu. Otherwise as above Subjective Patient was seen and examined at bedside. Overnight patient became delirious and had a presyncopal episode. Patient initially confused, but when assessed around 8am patient was alert and oriented x4. Patient has slept during much of the day. Review of Systems Review of Systems: As per above Physical Exam Constitutional: WD/WN, vitals as above Eyes: + anicteric sclerae; no conjunctival abn ormality ENMT: Ears: no external ear abnormality Nose: no external nose abnormality Respiratory: normal respiratory effort, lungs clear to auscultation Cardiovascular: Rate/Rhythm: regular rate and regular rhythm Extremities: no edema Musculoskeletal: Muscle spasms at R sternocleidomastoid and R cervical paraspinal musculature. Skin: no rashes, warm and dry Neurologic: no focal motor deficits Psychiatric: A+Ox3, euthymic affect Results & Data Results & Data Vital Signs (Past 12 Hours) Vital Signs Temp Pulse Pulse Pulse Resp BP BP 05/17/23 16:03 36.7 C 96 H 14 143/82 H 05/17/23 13:47 66 17 145/84 H 05/17/23 12:39 74 15 154/92 H 05/17/23 12:06 36.6 C 05/17/23 12:02 73 18 150/104 H 05/17/23 12:00 71 20 150/104 H 05/17/23 09:53 71 16 136/79 05/17/23 09:00 89 22 131/102 H 05/17/23 08:00 75 14 143/86 H 05/17/23 07:00 05/17/23 07:00 69 15 127/70 05/17/23 06:43 05/17/23 06:32 36.7 C 74 16 141/89 H 05/17/23 06:32 05/17/23 06:28 75 Pulse Ox Pulse Ox O2 Del Method O2 Del Method O2 Flow Rate O2 Flow Rate 05/17/23 16:03 97 Nasal Cannula 2 05/17/23 13:47 94 Nasal Cannula 2 05/17/23 12:39 95 Nasal Cannula 2 05/17/23 12:06 05/17/23 12:02 94 Nasal Cannula 2 05/17/23 12:00 94 Nasal Cannula 2 05/17/23 09:53 94 Nasal Cannula 2 05/17/23 09:00 94 Nasal Cannula 2 05/17/23 08:00 94 Nasal Cannula 2 05/17/23 07:00 Nasal Cannula 2 05/17/23 07:00 93 Nasal Cannula 2 05/17/23 06:43 Nasal Cannula 2 05/17/23 06:32 93 Nasal Cannula 2 05/17/23 06:32 93 Nasal Cannula 2 05/17/23 06:28 Resident Activity Tracking Resident Involvement: Resident Care Provided Care Provided: Adult Hospital Medicine
--- NOTE | 2023-05-17 19:38 | Billing Data ---
Date of Service May 17, 2023 Coding Level of Care Code 43568 SUB INP/OBS CARE MIN
--- NOTE | 2023-05-17 19:38 | Billing Data ---
Date of Service May 17, 2023 Coding Level of Care Code 46336 SUB INP/OBS CARE MIN
[2023-05-17] MEDS: MAGNESIUM SULFATE / D5W 1 GM/100 ML BAG IV SCH (21:07)
[2023-05-18 05:00] LABS: Basophils # (auto) 0.01 K/uL (0.00-0.20); Basophils % (auto) 0.1 %; Hematocrit (blood only) 42.2 % (42.0-52.0); Immature Granulocytes # (auto) 0.05 K/uL (0.01-0.20); Immature Granulocytes % (auto) 0.4 %; Lymphocytes # (auto) 1.41 K/uL (1.20-3.40); Lymphocytes % (auto) 12.3 %; Mean Corpuscular Hemoglobin 31.2 pg (25.0-34.0); Mean Corpuscular Hgb Conc 35.5 g/dL (32.0-36.0); Mean Corpuscular Volume 87.7 fL (80.0-100.0); Mean Platelet Volume 9.9 fL (9.4-12.4); Monocytes # (auto) 1.08 K/uL (0.11-0.59); Monocytes % (auto) 9.5 %; Neutrophils # (auto) 8.87 K/uL (1.40-6.50); Neutrophils % (auto) 77.7 %; Platelet Count 283 K/uL (130-400); RDW Coefficient of Variation 12.9 % (11.5-14.5); RDW Standard Deviation 41.7 fL (36.4-46.3); Red Blood Count 4.81 M/uL (4.70-6.10); White Blood Count 11.42 K/ul (4.8-10.8)
[2023-05-18 05:08] LABS: Appearance Urine Clear (Clear); Bilirubin Urine Negative (Negative); Blood Urine Negative (Negative); Color Urine Yellow; Glucose Urine UA Negative (Negative); Ketones Urine Negative (Negative); Leukocyte Esterase Urine Negative (Negative); Nitrite Urine Negative (Negative); Protein Urine Negative (Negative); Specific Gravity Urine 1.017 (1.000-1.030); Urobilinogen Urine Negative (Negative)
[2023-05-18 05:22] LABS: Albumin Level 3.8 gm/dl (3.4-5.0); BUN Creatinine Ratio 23.6 (10-20); Calcium 9.2 mg/dl (8.6-10.3); Creatinine Clr Calc Pharmacy 34.4 ml/min; Est GFR (Non-African American) 44.9 ml/min; Magnesium 2.6 mg/dl (1.7-2.4); Potassium 4.1 mmol/L (3.5-5.1)
--- NOTE | 2023-05-18 08:31 | Hospitalist Progress Note ---
"Date of Service May 18, 2023 Assessment & Plan (1) Acute neck pain: (2) Degenerative joint disease of cervical spine: (3) BPH (benign prostatic hyperplasia): (4) Previous back surgery: (5) H/O shoulder replacement: Plan Acute worsening of chronic neck pain/severe cervical degeneration -Given methylprednisolone 125 mg IV and morphine sulfate 4 mg IV in the ED with no improvement -Discontinued steroids -Baclofen decreased to 10 mg p.o. 3 times daily -Acetaminophen 650 mg by mouth every 6 hours as needed for mild pain or fever -Oxycodone 5 mg by mouth every 4 hours as needed for moderate pain -Dilaudid 0.5 mg IV every 3 hours as needed for severe pain -Zofran 4 mg IV every 6 hours as needed -CT scan of cervical spine shows stable severe cervical degenerative disc disease -Evaluated by ortho spine today, no indication for surgery at this time. Je mmended pain management consult which has been ordered. -Suspect that majority of increased symptoms due to muscle spasm etiology -Received an additional 2g mag sulfate last night, resumed Baclofen at decreased dosage (10mg TID) -D/c Valium due to altered mental status earlier in admission -Anticipate ongoing OMT at discharge for muscular symptoms Hypertension -Continue amlodipine, aspirin and propranolol -Hold losartan BPH | Urinary Retention -Continue finasteride -Patient notes ongoing bladder spasms and inability to empty bladder. UA ne gative, no signs of infection. -Linda attempted but placement was unsuccessful -Started Flomax 0.4mg BID, subsequently patient had 150mL of output (some blood noted in urine, likely secondary to trauma from linda) -Consult placed to urology for linda placement Admission and Anticipated Discharge Date Admission Date: May 16, 2023 Supervising Physician Co-Signing Physician Notes I personally examined the patient and verified all mathis points of history and exam, discussed case, and agree with decision making with Dr Ndiaye much more awake and coherent today. On initial questioning he notes his neck pain is about the same, but as I continue to talk with them and as I am doing some gentle OMT, he notes that maybe it is feeling a little bit better. Family present at the bedsideupdated the best my ability and to their satisfaction. Unfortunately he is having some painful bladder spasms and some urinary retentionand a catheter was unable to be placed at the bedside due to resistance. Vitals noted, in general he is awake and alert pleasant generally in no distress, does seem to have periodic times where his neck is causing him acute surges of painalthough less than 2 days ago. HEENT normocephalic atraumatic mucous membranes moist. Breathing unlabored no accessory muscle use good effort. Osteopathic/musculoskeletal shows right-sided C-spine paraspinals to be high tone, tender, decreased range of motionalthough slightly better than 2 days agogentle direct myofascial followed by indirect unwinding done, patient tolerated well, tissue texture improved some. Neck pain/cervical somatic dysfunction/muscle spasmcontinue symptoms/spasm related treatment, OMT as above.. Home once the pain is tolerable. Continue current care otherwise. Discussed case with pain management who will see him tomorrow. Anticipate outpatient OMT as well Bladder spasm/urinary retentionlikely pain mediated acute prostate obstruction. Gave trial to Flomax, although anticipated that it would not be of much benefitcatheter unable to be placed at the bedside by nursingwill need to ask urology for assistance. DVT prophylaxisheparin subcu. Otherwise as above Subjective Overnight patient had concern of bladder discomfort, clean catch UA was obtained- result was normal. This morning patient has had ongoing discomfort with bladder spasms, a linda was attempted but unable to be placed. Patient is alert and oriented, family at bedside. Patient notes that his neck pain is not significantly improved, but no worse than yesterday. Review of Systems Review of Systems: As per above Physical Exam Constitutional: WD/WN, vitals as above Eyes: + anicteric sclerae; no conjunctival abn ormality ENMT: Ears: no external ear abnormality Nose: no external nose abnormality Moist mucous membranes Respiratory: Normal respiratory efforts, no accessory muscle use. Nasal cannula oxygen in place Cardiovascular: Extremities: no edema Limbs appear well perfused Skin: no rashes, warm and dry Psychiatric: A+Ox3, euthymic affect Results & Data Results & Data Vital Signs (Past 12 Hours) Vital Signs Pulse Resp BP Pulse Ox O2 Del Method O2 Flow Rate 05/18/23 04:00 132/75 05/18/23 04:00 72 16 94 Nasal Cannula 2 05/18/23 03:00 71 18 93 Room Air 05/18/23 02:00 63 16 95 Room Air 05/18/23 01:00 67 12 94 05/18/23 00:44 68 05/18/23 00:22 143/81 H 05/18/23 00:22 78 16 05/18/23 00:00 126/71 05/18/23 00:00 71 13 96 05/17/23 23:00 66 13 93 05/17/23 22:00 74 14 90 05/17/23 21:00 73 17 95 Room Air 05/17/23 20:30 Room Air Resident Activity Tracking Resident Involvement: Resident Care Provided Care Provided: Adult Hospital Medicine"
--- NOTE | 2023-05-18 08:53 | Orthopedic Consultation ---
Date of Service May 18, 2023 History of Present Illness Reason for Consultation: Neck pain Requesting Physician: . Attending Physician: Shin Buchanan DO The patient is a 82-year-old male with a past medical history including CKD, hypertension, shoulder replacements, BPH, lumbar spinal stenosis, SNHL, thoracic facet syndrome, ureteral stones, osteoarthritis of hip, and status post total hip arthroplasty. The patient has undergone lumbar spinal fusion in the past with Dr. Salas, fused from L2-S1, and has always had chronic neck pain, but today is worsened considerably to the point that he gets severe sharp pains that are intolerable, no inciting incident. He is also work with pain management in the past relative to some thoracic pain undergoing thoracic blocks. He reports that he will take oxycodone for the pain along with the Voltaren on a regular basis. He relates no upper extremity symptomatology. Exam reveals him to indicate pain more in the right side of the neck but at the base of the cervical spine and also in the more cephalad area. It is worsened with any range of motion, he does have appropriate strength of the upper e xtremities in all groups tested, spasms were noted just after the examination right side of his neck. CT C SPINE May 16, 2023 EXAM: CT Cervical Spine Without Intravenous Contrast CLINICAL HISTORY: Reason for exam: R sided neck pain. TECHNIQUE: Axial computed tomography images of the cervical spine without intravenous contrast. CTDI is 19.59 mGy and DLP is 365.54 mGy-cm. Automated exposure control was utilized for the study. A dose lowering technique was utilized adhering to the principles of ALARA. Moderate motion/shoulder artifact. COMPARISON: CT cervical spine 05/28/21. FINDINGS: Vertebrae: No acute fracture. Discs/spinal canal/neural foramina: Severe, diffuse degenerative disc and facet disease. No significant interval change. Soft tissues: Unremarkable. IMPRESSION: 1. Severe degenerative change, stable. 2. No acute fracture or interval change.. CT scan images of reviewed, my personal interpretation reveals the patient to have autofusion present at C3-4 and also C5 5 6 with degenerative changes at C4- 5, C6-7 and also C2-3 region, also some limited osteoarthritic changes involving the upper cervical segments. Impression: Recent flareup of cervical axial symptoms with chronic degenerative changes present also status post several lumbar surgeries, but main complaint being right-sided cervical axial symptomatology. Plan: I talked with the patient and his son, I related that he certainly has some degenerative changes that could be causing the neck pain but no critical areas of stenosis or instability, for this reason I am recommending just conservative measures. Patient has been given appropriate medication, I think that him wearing his soft collar which she does [facility] with [facility] with perhaps some gentle physical therapy and muscle relaxers, beyond baclofen if needed might be helpful for his symptoms. I do recommend the patient undergo evaluation by pain management who he has worked with in the past for the cervical spine, he may benefit from some additional injections and/or procedures, I do not think he needs any operative intervention at this point. Allergies Allergy/AdvReac Type Severity Reaction Status Date / Time hydrochlorothiazide Allergy Severe Rash Verified 05/15/23 21:21 doxazosin Allergy Intermediate RASH, Verified 05/15/23 21:21 ITCHING oxaprozin Allergy Intermediate RASH, Verified 05/15/23 21:21 ITCHING mycophenolate mofetil AdvReac Severe "MAKES ME Verified 05/15/23 21:21 [From CellCept] EXTREMELY ILL" terazosin AdvReac Intermediate nervousness Verified 05/15/23 21:21 Home Medications Medication Instructions Recorded Confirmed Type gabapentin 300 mg capsule 600 mg PO HS 03/21/18 05/15/23 History multivitamin (Multiple Vitamins 1 tab PO QAM 03/21/18 05/15/23 History tablet) cholecalciferol (vitamin D3) 25 1,000 unit PO QAM 08/05/18 05/15/23 History mcg (1,000 unit) tablet pyridoxine (vitamin B6) 50 mg 50 mg PO QAM 08/05/18 05/15/23 History tablet atorvastatin 40 mg tablet 40 mg PO QAM 04/03/20 05/15/23 History omeprazole 20 mg capsule,delayed 20 mg PO QAM 06/04/20 05/15/23 History release diphenhydramine 12.5 12.5 tab PO PM PRN Sleep 11/27/20 05/15/23 History mg-acetaminophen 325 mg tablet losartan 100 mg tablet 100 mg PO QAM 11/27/20 05/15/23 History nitroglycerin 0.4 mg sublingual 0.4 mg sublingual Q5M PRN Chest 11/27/20 History tablet Pain oxycodone 5 mg tablet 2.5 - 5 mg PO HS PRN Pain, Severe 11/27/20 05/15/23 History amlodipine 10 mg tablet 5 mg PO QPM 06/02/21 05/15/23 History aspirin 81 mg chewable tablet 81 mg PO BID 30 days #60 tabs 02/05/22 05/15/23 Rx diclofenac sodium 75 mg 75 mg PO BID 30 days #60 tabs 02/05/22 05/15/23 Rx tablet,delayed release ondansetron 4 mg disintegrating 4 - 8 mg (1 - 2 x 4 mg) PO Q8H PRN 07/05/22 05/15/23 Rx tablet nausea and vomiting #14 tabs propranolol 20 mg tablet 20 mg PO BID #180 tabs 08/11/22 05/15/23 Rx finasteride 5 mg tablet 5 mg PO QAM #90 tabs 10/14/22 05/15/23 Rx calcium carbonate 500 mg calcium 500 mg PO QAM 05/15/23 05/15/23 History (1,250 mg) tablet lidocaine 5 % topical patch 1 patch topical DAILY PRN pain #15 05/15/23 Rx ea oxycodone 5 mg tablet 5 mg PO Q12H PRN pain #6 tabs 05/15/23 Rx prednisone 20 mg tablet See Rx Instructions .Route 05/15/23 Rx .COMPLEX 5 days #7 tabs Past Med/Surg History Medical History Osteoarthritis 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 Nephrolithiasis Essential tremor Hands Anemia Stage 3b chronic kidney disease Hiatal hernia Sensorineural hearing loss (SNHL) of right ear with restricted hearing of left ear Ankylosing spondylitis Remotely diagnosed Chronic, constant back pain History of basal cell carcinoma Lumbar stenosis Chronic back pain BPH (benign prostatic hyperplasia) HTN (hypertension) Surgical History History of basal cell carcinoma (BCC) excision History of back surgery x 4 History of left shoulder replacement History of right shoulder replacement History of esophagogastroduodenoscopy (EGD) History of colonoscopy Status post placement of cardiac pacemaker Family History Mother , Mother age 99 with hypertension and arthritis Osteoarthritis Cancer Hypertension Father , Father age 48 of an [place]. 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 Feels Safe at Home: Yes Assistive Devices: Cane Review of Systems All systems reviewed & are unremarkable except as noted in HPI & below. Physical Exam . Results & Data Results & Data Laboratory Results . Diagnostic Findings . PG Care Time/CCT Total # of Minutes Spent Total Time Spent with Patient: Total time spent is greater than 50% in coordination of care (as documented) at patient's floor/unit and/or counseling patient: Coding Level of Care Code 09960 IN/OBS CONSULT LVL 3,45M
[2023-05-18] MEDS: BACLOFEN 10 MG TAB PO SCH (09:49)
[2023-05-18] MEDS: TAMSULOSIN HCL 0.4 MG CAP PO ONE (10:51)
[2023-05-18] MEDS: PHENAZOPYRIDINE HCL 200 MG TAB PO PRN (10:51)
--- NOTE | 2023-05-18 13:20 | Billing Data ---
Date of Service May 18, 2023 Coding Level of Care Code 08977 SUB INP/OBS CARE MIN
--- NOTE | 2023-05-18 13:20 | Hospitalist Progress Note ---
Date of Service May 18, 2023 Assessment & Plan Admission and Anticipated Discharge Date Admission Date: May 16, 2023 Results & Data Results & Data Vital Signs (Past 12 Hours) Vital Signs Temp Pulse Resp BP Pulse Ox O2 Del Method O2 Flow Rate 05/18/23 12:00 140/99 05/18/23 12:00 88 15 05/18/23 10:00 88 18 05/18/23 08:00 157/90 H 05/18/23 08:00 95 H 13 93 05/18/23 08:00 Nasal Cannula 2 05/18/23 08:00 97.7 F 05/18/23 06:00 86 14 93 05/18/23 04:00 132/75 05/18/23 04:00 72 16 94 Nasal Cannula 2 05/18/23 03:00 71 18 93 Room Air 05/18/23 02:00 63 16 95 Room Air PG Care Time/CCT Total # of Minutes Spent Total Time Spent with Patient: Total time spent is greater than 50% in coordination of care (as documented) at patient's floor/unit and/or counseling patient: Coding Level of Care Code None CPT Codes Musculoskeletal - Musculoskeletal: 84083 Osteo Domenic Tr 1-2 Body regions ([id number])
--- NOTE | 2023-05-18 13:21 | Billing Data ---
Date of Service May 18, 2023 Coding Level of Care Code 16390 SUB INP/OBS CARE MIN
--- NOTE | 2023-05-18 14:10 | Urology Consultation ---
Date of Consultation May 18, 2023 Assessment & Plan (1) BPH (benign prostatic hyperplasia): (2) Urinary retention: 82 yo/M admitted for acute neck pain; subsequently developed urinary retention. Urology consulted for urinary retention and Acevedo catheter placement Pt had elevated bladder scans today, nursing was unable to place catheter Urinary retention likely multifactorial with underlying BPH, medication effect, and constipation I placed an 18 Turkmen coud catheter at bedside with immediate return of >350 mL of urine which continued to drain Collected a cath urine sample to send for culture, though his UA today was negative Patient tolerated procedure well, no complications noted Continue home Finasteride Recommend bowel regimen to normalize bowels Recommend maintain catheter until he is more ambulatory and bowels are normalized Can do voiding trial prior to discharge or can arrange voiding trial outpatient with our office depending on timing He denies flank pain, but would have a low threshold to do imaging to check for stones if he continues to have bladder discomfort/issues after catheter placement will sign off, please contact our service with any additional questions or concerns History of Present Illness Reason for Consultation: Urinary retention, unable to place catheter Requesting Physician: Dr. Buchanan Attending Physician: Shin Buchanan, History of Present Illness This is an 82-year-old male with past medical history of CKD, degenerative joint disease of cervical spine, bilateral kidney stones and BPH who presented to the emergency department on 05/15/2023 for evaluation of acute neck pain. Patient was admitted to the hospital medicine service for pain management. Urology is consulted for urinary retention, Acevedo catheter placement. Patient is known to our service, follows with Dr. Pérez for history of kidney stones and BPH. Per nursing, elevated bladder scan this morning >400 mL. Nursing attempted to place catheter but was unsuccessful. Labs today-creatinine 1.44, WBC 11.42, hemoglobin 15.0. Urinalysis 05/18/23 was negative. Patient seen and examined at bedside. Grandson present. Patient reports ongoing neck pain. He developed difficulty voiding overnight and this morning. He had a condom catheter initially. Bladder scan was elevated today. He has been voiding small amounts and having some incontinence. He reports bladder discomfort/spasms. Denies flank or abdominal pain. Notes mild dysuria. Last bowel movement was 05/15. He remains on Finasteride. Allergies Allergy/AdvReac Type Severity Reaction Status Date / Time hydrochlorothiazide Allergy Severe Rash Verified 05/15/23 21:21 doxazosin Allergy Intermediate RASH, Verified 05/15/23 21:21 ITCHING oxaprozin Allergy Intermediate RASH, Verified 05/15/23 21:21 ITCHING mycophenolate mofetil AdvReac Severe "MAKES ME Verified 05/15/23 21:21 [From CellCept] EXTREMELY ILL" terazosin AdvReac Intermediate nervousness Verified 05/15/23 21:21 Home Medications Medication Instructions Recorded Confirmed Type gabapentin 300 mg capsule 600 mg PO HS 03/21/18 05/15/23 History multivitamin (Multiple Vitamins 1 tab PO QAM 03/21/18 05/15/23 History tablet) cholecalciferol (vitamin D3) 25 1,000 unit PO QAM 08/05/18 05/15/23 History mcg (1,000 unit) tablet pyridoxine (vitamin B6) 50 mg 50 mg PO QAM 08/05/18 05/15/23 History tablet atorvastatin 40 mg tablet 40 mg PO QAM 04/03/20 05/15/23 History omeprazole 20 mg capsule,delayed 20 mg PO QAM 06/04/20 05/15/23 History release diphenhydramine 12.5 12.5 tab PO PM PRN Sleep 11/27/20 05/15/23 History mg-acetaminophen 325 mg tablet losartan 100 mg tablet 100 mg PO QAM 11/27/20 05/15/23 History nitroglycerin 0.4 mg sublingual 0.4 mg sublingual Q5M PRN Chest 11/27/20 05/15/23 History tablet Pain oxycodone 5 mg tablet 2.5 - 5 mg PO HS PRN Pain, Severe 11/27/20 05/15/23 History amlodipine 10 mg tablet 5 mg PO QPM 06/02/21 05/15/23 History aspirin 81 mg chewable tablet 81 mg PO BID 30 days #60 tabs 02/05/22 05/15/23 Rx diclofenac sodium 75 mg 75 mg PO BID 30 days #60 tabs 02/05/22 05/15/23 Rx tablet,delayed release ondansetron 4 mg disintegrating 4 - 8 mg (1 - 2 x 4 mg) PO Q8H PRN 07/05/22 05/15/23 Rx tablet nausea and vomiting #14 tabs propranolol 20 mg tablet 20 mg PO BID #180 tabs 08/11/22 05/15/23 Rx finasteride 5 mg tablet 5 mg PO QAM #90 tabs 10/14/22 05/15/23 Rx calcium carbonate 500 mg calcium 500 mg PO QAM 05/15/23 05/15/23 History (1,250 mg) tablet lidocaine 5 % topical patch 1 patch topical DAILY PRN pain #15 05/15/23 Rx ea oxycodone 5 mg tablet 5 mg PO Q12H PRN pain #6 tabs 05/15/23 Rx prednisone 20 mg tablet See Rx Instructions .Route 05/15/23 Rx .COMPLEX 5 days #7 tabs Patient History Medical History Osteoarthritis 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 Nephrolithiasis Essential tremor Hands Anemia Stage 3b chronic kidney disease Hiatal hernia Sensorineural hearing loss (SNHL) of right ear with restricted hearing of left ear Ankylosing spondylitis Remotely diagnosed Chronic, constant back pain History of basal cell carcinoma Lumbar stenosis Chronic back pain BPH (benign prostatic hyperplasia) HTN (hypertension) Surgical History History of basal cell carcinoma (BCC) excision History of back surgery x 4 History of left shoulder replacement History of right shoulder replacement History of esophagogastroduodenoscopy (EGD) History of colonoscopy Status post placement of cardiac pacemaker Family History Mother , Mother age 99 with hypertension and arthritis Osteoarthritis Cancer Hypertension Father , Father age 48 of an [place]. Myocardial infarction Other Family history non-contributory No family history of adverse response to anesthesia No family history of allergies No family history of bleeding disorder Denies family history of Hearing loss Heart disease Stroke Asthma Social History Smoking Status: Never smoker Second Hand Exposure: No; Do You Dip or Chew Tobacco: No; Hx Alcohol Use: No Hx Substance Use: No Preferred Language: Cypriot Communication Ability: Effective Care Navigator Required: No Beliefs That Will Affect Care: None marital status: Current Living Situation: Alone Current Living Situation Comment: lives at home with and daughter current occupational status: retired 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 Feels Safe at Home: Yes Assistive Devices: Cane Review of Systems Review of Systems: All systems reviewed & are unremarkable except as noted in HPI & below Physical Exam 2 Constitutional: well developed and well nourished; no acute distress Respiratory: normal respiratory effort; no respiratory distress and no labored breathing Cardiovascular: Extremities: no pedal edema Gastrointestinal (Abdomen): Percussion/Palpation: abdomen soft Musculoskeletal: Head/Neck/Chest: normocephalic Neurologic: moves all extremities and awake Psychiatric: Orientation: alert and oriented x 3 Genitourinary: Mild bladder distention noted Patient was prepped and draped in typical sterile fashion. A well-lubricated 18 Turkmen coud catheter was inserted per urethra, there was very mild resistance at the suspected level of the prostate, but was able to advance the catheter and there was return of yellow urine. Balloon inflated to 10 mL. Foreskin was replaced to anatomic position at completion. Greater than 350 mL of yellow urine immediately drained and continued to drain. Urine sample collected for urine culture. He tolerated procedure well, no complications noted. Results & Data Vital Signs (Past 12 Hours) Vital Signs Temp Pulse Resp BP Pulse Ox O2 Del Method O2 Flow Rate 05/18/23 12:00 140/99 05/18/23 12:00 88 15 05/18/23 10:00 88 18 05/18/23 08:00 157/90 H 05/18/23 08:00 95 H 13 93 05/18/23 08:00 Nasal Cannula 2 05/18/23 08:00 36.5 C 05/18/23 06:00 86 14 93 05/18/23 04:00 132/75 05/18/23 04:00 72 16 94 Nasal Cannula 2 05/18/23 03:00 71 18 93 Room Air PG Care Time/CCT Total # of Minutes Spent Total Time Spent with Patient: Total time spent is greater than 50% in coordination of care (as documented) at patient's floor/unit and/or counseling patient: Coding Level of Care Code 67757 INT INP/OBS CARE 2/55MIN Diagnoses BPH (benign prostatic hyperplasia) N40.0 Urinary retention R33.9
[2023-05-18] MEDS: POLYETHYLENE (MIRALAX) 17 GM PACK PO SCH ×2 (16:13→21:30)
[2023-05-18] MEDS ORDERED: HYDROmorphone INJ 0.5 MG/0.5 ML SYR IV PRN (17:07)
[2023-05-18] MEDS: LACTATED RINGER'S 1,000 ML IV ONE (17:11)
[2023-05-18] MEDS ORDERED: PROCHLORPERAZINE 5 MG in SYRINGE 4 ML IV PRN (17:20)
[2023-05-18] MEDS: PROCHLORPERAZINE 5 MG in SYRINGE 4 ML IV ONE (19:07)
[2023-05-18] MEDS ORDERED: TAMSULOSIN HCL 0.4 MG CAP PO SCH (21:00)
[2023-05-19 08:57] LABS: Basophils # (auto) 0.02 K/uL (0.00-0.20); Basophils % (auto) 0.3 %; Eosinophils % (auto) 1.4 %; Hematocrit (blood only) 40.8 % (42.0-52.0); Hemoglobin 13.6 g/dl (14.0-18.0); Immature Granulocytes # (auto) 0.01 K/uL (0.01-0.20); Immature Granulocytes % (auto) 0.1 %; Lymphocytes # (auto) 1.26 K/uL (1.20-3.40); Lymphocytes % (auto) 17.4 %; Mean Corpuscular Hemoglobin 30.4 pg (25.0-34.0); Mean Corpuscular Hgb Conc 33.3 g/dL (32.0-36.0); Mean Corpuscular Volume 91.3 fL (80.0-100.0); Mean Platelet Volume 10.1 fL (9.4-12.4); Monocytes # (auto) 0.81 K/uL (0.11-0.59); Monocytes % (auto) 11.2 %; Neutrophils # (auto) 5.06 K/uL (1.40-6.50); Neutrophils % (auto) 69.6 %; Platelet Count 180 K/uL (130-400); RDW Standard Deviation 42.8 fL (36.4-46.3); Red Blood Count 4.47 M/uL (4.70-6.10); White Blood Count 7.26 K/ul (4.8-10.8)
--- NOTE | 2023-05-19 09:10 | Pain Management Consultation ---
Date of Consultation May 19, 2023 Assessment & Plan (1) Acute neck pain: (2) Cervical facet joint syndrome: (3) Degenerative joint disease of cervical spine: (4) Status post placement of cardiac pacemaker: Plan 1. Pain is likely driven by an underlying cervical facet syndrome with a corresponding myofascial reaction with spasm. Symptoms have diminished with appropriate treatment. Would recommend he continue with baclofen and Voltaren gel 2. Patient should continue with his Oxy IR for as needed breakthrough pain as prescribed. 3. We did discuss cervical interventional treatment options including cervical medial branch blocks/RFA pathway although patient has had cardiac pacemaker implantation completed within the past 2 years upon further review of records. We need to investigate whether the patient is currently pacer dependent which would determine his ability to pursue medial branch block/ablation pathway. Alternatively cervical intra-articular facet joint injection could be trialed with persistent pain complaints. 4. Potentially consider use of Medrol Dosepak if appropriate per hospitalist service 5. Will plan for outpatient follow-up in pain clinic History of Present Illness Reason for Consultation: Intractable right-sided axial neck pain Requesting Physician: Shin Ortiz DO Attending Physician: Shin Buchanan DO History of Present Illness Mr. Wiggins is an 82-year-old white male who was admitted on 05/16/2023 due to acute on chronic axial neck pain without known injury. Patient has past medical history significant for cervical fusion, CKD, hypertension, shoulder replacement, BPH, lumbar spinal stenosis, thoracic facet syndrome, ureteral stones, osteoarthritis of the hip and status post hip arthroplasty. He reports chronic axial neck pain which has been ongoing for many years, increased 1-2 days prior to admission without known injury. He reports the pain was sharp and stabbing which has slightly reduced in severity upon this admission. The pain is 100% axial in the right upper neck without radiation into the upper extremity. He has no radicular pattern pain. The pain can travel towards the occipital scalp. He denies any similar left-sided axial neck pain. He denies any hemicranial headache distribution to his pain complaints. Patient indicates his pain was an 8-9/10 upon admission currently a 4-6/10. He believes the baclofen has been helpful upon this admission he is currently tolerating 10 mg dose. He does use Oxy IR chronically in the outpatient setting intermittently for as needed pain control. Most recent prescription for #30 was on 03/24/2023. Patient has been evaluated by Dr. Hercules upon this admission who deferred any surgical intervention at this time. Patient has no further constitutional complaints. Plan of care discussed with Dr. Tamara Ames. Pain Assessment Full Body Front + Back: 2 1. Right upper-mid axial neck Pain scale - at its best (0-10): 4 Pain scale - at its worst (0-10): 8 Allergies Allergy/AdvReac Type Severity Reaction Status Date / Time hydrochlorothiazide Allergy Severe Rash Verified 05/15/23 21:21 doxazosin Allergy Intermediate RASH, Verified 05/15/23 21:21 ITCHING oxaprozin Allergy Intermediate RASH, Verified 05/15/23 21:21 ITCHING mycophenolate mofetil AdvReac Severe "MAKES ME Verified 05/15/23 21:21 [From CellCept] EXTREMELY ILL" terazosin AdvReac Intermediate nervousness Verified 05/15/23 21:21 Home Medications Medication Instructions Recorded Confirmed Type gabapentin 300 mg capsule 600 mg PO HS 03/21/18 05/15/23 History multivitamin (Multiple Vitamins 1 tab PO QAM 03/21/18 05/15/23 History tablet) cholecalciferol (vitamin D3) 25 1,000 unit PO QAM 08/05/18 05/15/23 History mcg (1,000 unit) tablet pyridoxine (vitamin B6) 50 mg 50 mg PO QAM 08/05/18 05/15/23 History tablet atorvastatin 40 mg tablet 40 mg PO QAM 04/03/20 05/15/23 History omeprazole 20 mg capsule,delayed 20 mg PO QAM 06/04/20 05/15/23 History release diphenhydramine 12.5 12.5 tab PO PM PRN Sleep 11/27/20 05/15/23 History mg-acetaminophen 325 mg tablet losartan 100 mg tablet 100 mg PO QAM 11/27/20 05/15/23 History nitroglycerin 0.4 mg sublingual 0.4 mg sublingual Q5M PRN Chest 11/27/20 05/15/23 History tablet Pain oxycodone 5 mg tablet 2.5 - 5 mg PO HS PRN Pain, Severe 11/27/20 05/15/23 History amlodipine 10 mg tablet 5 mg PO QPM 06/02/21 05/15/23 History aspirin 81 mg chewable tablet 81 mg PO BID 30 days #60 tabs 02/05/22 05/15/23 Rx diclofenac sodium 75 mg 75 mg PO BID 30 days #60 tabs 02/05/22 05/15/23 Rx tablet,delayed release ondansetron 4 mg disintegrating 4 - 8 mg (1 - 2 x 4 mg) PO Q8H PRN 07/05/22 05/15/23 Rx tablet nausea and vomiting #14 tabs propranolol 20 mg tablet 20 mg PO BID #180 tabs 08/11/22 05/15/23 Rx finasteride 5 mg tablet 5 mg PO QAM #90 tabs 10/14/22 05/15/23 Rx calcium carbonate 500 mg calcium 500 mg PO QAM 05/15/23 05/15/23 History (1,250 mg) tablet lidocaine 5 % topical patch 1 patch topical DAILY PRN pain #15 05/15/23 Rx ea oxycodone 5 mg tablet 5 mg PO Q12H PRN pain #6 tabs 05/15/23 Rx prednisone 20 mg tablet See Rx Instructions .Route 05/15/23 Rx .COMPLEX 5 days #7 tabs Pain History Pain Intensity Pain scale - at its best (0-10): 4 Pain scale - at its worst (0-10): 8 Patient History Medical History (Updated 05/19/23 @ 09:17 by Scot Zee PA-C) Cervical facet joint syndrome Osteoarthritis 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 Nephrolithiasis Essential tremor Hands Anemia Stage 3b chronic kidney disease Hiatal hernia Sensorineural hearing loss (SNHL) of right ear with restricted hearing of left ear Ankylosing spondylitis Remotely diagnosed Chronic, constant back pain History of basal cell carcinoma Lumbar stenosis Chronic back pain BPH (benign prostatic hyperplasia) HTN (hypertension) Surgical History (Updated 05/19/23 @ 09:20 by Scot Zee PA-C) History of basal cell carcinoma (BCC) excision History of back surgery x 4 History of left shoulder replacement History of right shoulder replacement History of esophagogastroduodenoscopy (EGD) History of colonoscopy Status post placement of cardiac pacemaker Family History Mother , Mother age 99 with hypertension and arthritis Osteoarthritis Cancer Hypertension Father , Father age 48 of an [place]. Myocardial infarction Other Family history non-contributory No family history of adverse response to anesthesia No family history of allergies No family history of bleeding disorder Denies family history of Hearing loss Heart disease Stroke Asthma Social History Smoking Status: Never smoker Second Hand Exposure: No; Do You Dip or Chew Tobacco: No; Hx Alcohol Use: No Hx Substance Use: No Preferred Language: Telugu Communication Ability: Effective Wedding Consultant Required: No Beliefs That Will Affect Care: None marital status: Current Living Situation: Alone Current Living Situation Comment: lives at home with and daughter current occupational status: retired 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 Feels Safe at Home: Yes Safety Concerns: Feels Safe At This Time Assistive Devices: Cane Physical Exam 2 Physical Exam: General: Patient sitting quietly in exam room in no acute distress. Speech and thought process appropriate. Mood and affect appropriate. Cognition intact. Patient accompanied by son during today's visit at bedside. Head: Normocephalic and atraumatic. Patient is nontender over the greater or lesser occipital nerve to direct palpation. ENT: No evidence of nasal or oral mucosal lesions. Mucous membranes are moist. Eyes: Pupils equal round reactive to light. Neck: Supple without adenopathy and full range of motion. Nontender over the midline. Patient is tender to provocative testing over the right-sided upper cervical facet joints from C2-C4. Minimally tenderness cervical paravertebral musculature on the right side only with minimal spasm. No mid trapezius spasm appreciated. Spurling's maneuver with slight increase in axial pain on the right without a radicular component. Upper extremity: Strength testing 4+/5 with handgrip, opposition and biceps/triceps maneuvering. Marcelina sign negative bilaterally. Sensation intact without focal deficit. Chest: Nontender to palpation of the costosternal junction. Neurologic: Cranial nerves grossly intact. Ambulatory function not witnessed.
[2023-05-19 09:15] LABS: Calcium 8.7 mg/dl (8.6-10.3); Creatinine Clr Calc Pharmacy 39.7 ml/min; Est GFR (African American) 56.3 ml/min; Est GFR (Non-African American) 48.5 ml/min; Potassium 3.8 mmol/L (3.5-5.1)
--- NOTE | 2023-05-19 13:51 | Electrocardiogram Report ---
Test Reason : Blood Pressure : / mmHG Vent. Rate : 072 BPM Atrial Rate : 072 BPM P-R Int : 180 ms QRS Dur : 078 ms QT Int : 396 ms P-R-T Axes : 047 -27 -08 degrees QTc Int : 433 ms Normal sinus rhythm Cannot rule out Inferior infarct (cited on or before 03-JUN-2021) Abnormal ECG When compared with ECG of 06-SEP-2021 09:46, Sinus rhythm now present Questionable change in initial forces of Inferior leads Confirmed by Ever Madrigal ([id number]) on 05/19/2023 1:51:11 PM Referred By: REFERRED SELF Confirmed By:Ever Madrigal
--- NOTE | 2023-05-19 14:50 | Hospitalist Progress Note ---
"Date of Service May 19, 2023 Assessment & Plan (1) Acute neck pain: (2) Degenerative joint disease of cervical spine: (3) BPH (benign prostatic hyperplasia): (4) Previous back surgery: (5) H/O shoulder replacement: Plan Acute worsening of chronic neck pain/severe cervical degeneration -Given methylprednisolone 125 mg IV and morphine sulfate 4 mg IV in the ED with no improvement -Discontinued steroids -Baclofen decreased to 10 mg p.o. 3 times daily -Acetaminophen 650 mg by mouth every 6 hours as needed for mild pain or fever -Oxycodone 5 mg by mouth every 4 hours as needed for moderate pain -Dilaudid 0.5 mg IV every 3 hours as needed for severe pain -Zofran 4 mg IV every 6 hours as needed -CT scan of cervical spine shows stable severe cervical degenerative disc disease -Evaluated by ortho spine on 05/18, no indication for surgery at this time. Re commended pain management consult which was completed today (), planning for possible outpatient interventions. EKG obtained by pain management (normal sinus rhythm, possible infarct noted on or before May 2021 but no clinical significance, patient without any symptoms) -Suspect that majority of increased symptoms due to muscle spasm etiology -Resumed Baclofen at decreased dosage (10mg TID) -D/c Valium due to altered mental status earlier in admission -Anticipate ongoing OMT at discharge for muscular symptoms Hypertension -Continue amlodipine, aspirin and propranolol -Hold losartan Loose Stools -Patient with no bowel movements for 3+ days (likely due to increased opioid medications), was started on bowel regimen with Miralax -Within the day after starting miralax, patient started to develop loose stools which is likely secondary to overflow diarrhea -Low suspicion for c.diff considering no antibiotic use, no symptoms of bacte rial infection BPH | Urinary Retention -Continue finasteride -Patient notes ongoing bladder spasms and inability to empty bladder. UA negative, no signs of infection. -Acevedo attempted but placement was unsuccessful, later placed by urology Admission and Anticipated Discharge Date Admission Date: May 18, 2023 Supervising Physician Co-Signing Physician Notes I personally examined the patient and verified all mathis points of history and exam, discussed case, and agree with decision making with Dr Ndiaye neck feeling a little better. Has not really been up and out of bed. Vitals noted, in general he is awake and alert pleasant no distress. HEENT normocephalic atraumatic mucous membranes moist. Breathing unlabored no accessory muscle use good effort. Osteopathic/musculoskeletal shows right-sided C-spine paraspinals high tone, tender, decreased range of motionbut much better than a few days agodirect myofascialpatient tolerated well. Neck pain/cervical somatic dysfunction/muscle spasmcontinue symptoms/spasm related treatment, OMT as above.. Home once the pain is tolerable. Continue current care otherwise. Appreciate pain management input. Anticipate outpatient OMT as well Bladder spasm/urinary retentionlikely pain mediated acute prostate obstruction. Catheter placed by urologywill leave in for nowwork on outpatient follow-up with urology for eventual voiding trial. acute kidney injurywas probably due to poor p.o. fluid intake as well as chronic NSAID regimenNSAID stopped, IV fluidsAKI has now resolved. DVT prophylaxisheparin subcu. Otherwise as above Subjective Patient seen and examined at bedside. Endorses some mild improvement of symptoms, still has been laying in bed for majority of day. Has had some looser stools overnight and through the day, although this was secondary to initiating bowel regimen the day prior. Review of Systems Review of Systems: As per above Physical Exam Constitutional: WD/WN, vitals as above Eyes: + anicteric sclerae; no conjunctival abn ormality ENMT: Ears: no external ear abnormality Nose: no external nose abnormality Moist mucous membranes Respiratory: normal respiratory effort, lungs clear to auscultation Cardiovascular: Rate/Rhythm: regular rate and regular rhythm Extremities: no edema Musculoskeletal: frequent R cervical muscle spasms Skin: no rashes, warm and dry Neurologic: no focal motor deficits Psychiatric: A+Ox3, euthymic affect Results & Data Results & Data Vital Signs (Past 12 Hours) Vital Signs Temp Pulse Resp BP Pulse Ox O2 Del Method O2 Flow Rate 05/19/23 14:30 80 14 122/79 92 Nasal Cannula 1 05/19/23 13:58 36.5 C 95 H 18 90/63 L 90 Room Air 05/19/23 06:56 36.7 C 73 16 105/68 94 Nasal Cannula 1 Resident Activity Tracking Resident Involvement: Resident Care Provided Care Provided: Adult [facility]"
--- NOTE | 2023-05-19 19:25 | Billing Data ---
Date of Service May 19, 2023 Coding Level of Care Code 84022 SUB INP/OBS CARE MIN
[2023-05-20 09:00] LABS: Basophils # (auto) 0.01 K/uL (0.00-0.20); Basophils % (auto) 0.1 %; Eosinophils # (auto) 0.15 K/uL (0.00-0.50); Eosinophils % (auto) 1.8 %; Hematocrit (blood only) 41.8 % (42.0-52.0); Hemoglobin 14.2 g/dl (14.0-18.0); Immature Granulocytes # (auto) 0.06 K/uL (0.01-0.20); Immature Granulocytes % (auto) 0.7 %; Lymphocytes # (auto) 1.03 K/uL (1.20-3.40); Lymphocytes % (auto) 12.1 %; Mean Corpuscular Hemoglobin 30.7 pg (25.0-34.0); Mean Corpuscular Volume 90.3 fL (80.0-100.0); Mean Platelet Volume 10.6 fL (9.4-12.4); Monocytes # (auto) 0.77 K/uL (0.11-0.59); Neutrophils # (auto) 6.51 K/uL (1.40-6.50); Neutrophils % (auto) 76.3 %; Platelet Count 177 K/uL (130-400); RDW Coefficient of Variation 13.1 % (11.5-14.5); RDW Standard Deviation 43.2 fL (36.4-46.3); Red Blood Count 4.63 M/uL (4.70-6.10); White Blood Count 8.53 K/ul (4.8-10.8)
[2023-05-20 09:13] LABS: BUN Creatinine Ratio 18.8 (10-20); Creatinine Clr Calc Pharmacy 35.9 ml/min; Est GFR (African American) 54.8 ml/min; Est GFR (Non-African American) 47.3 ml/min; Potassium 3.9 mmol/L (3.5-5.1)
--- NOTE | 2023-05-20 13:46 | Discharge Summary ---
Date of Service May 20, 2023 Admission HPI Per Admitting Provider The patient is a 82-year-old male with a past medical history including CKD, hypertension, shoulder replacements, BPH, lumbar spinal stenosis, SNHL, thoracic facet syndrome, ureteral stones, osteoarthritis of hip, and status post total hip arthroplasty. The patient has undergone cervical spinal fusion in the past, and has always had chronic neck pain, but today is worsened considerably to the point that he gets severe sharp pains that are intolerable. Principal Diagnosis Cervical DJD and spasm Discharge Exam Constitutional: in no acute distress, pleasant and normal affect. Vitals as above. HEENT: No scleral injection or discharge. Moist mucous membranes. Neck: Supple. Trachea midline. Lungs: Clear to auscultation bilaterally with good effort. Cardiac: Regular rate and rhythm. No murmurs. Abdomen: Bowel sounds present. Soft, nontender, and nondistended.No guarding. MSK: No cyanosis or clubbing. Skin: No rashes, warm, dry. Neurologic: no focal deficits Discharge Data Allergies Allergy/AdvReac Type Severity Reaction Status Date / Time hydrochlorothiazide Allergy Severe Rash Verified 05/15/23 21:21 doxazosin Allergy Intermediate RASH, Verified 05/15/23 21:21 ITCHING oxaprozin Allergy Intermediate RASH, Verified 05/15/23 21:21 ITCHING mycophenolate mofetil AdvReac Severe "MAKES ME Verified 05/15/23 21:21 [From CellCept] EXTREMELY ILL" terazosin AdvReac Intermediate nervousness Verified 05/15/23 21:21 Consultations 05/16/23 00:12 ED Decision to Admit Stat 05/17/23 16:40 Consult Orthopedic Spine Surgery Routine 05/18/23 09:21 Consult Pain Management Routine 05/18/23 13:11 Consult Urology Routine Ordered Studies Laboratory Results WBC 8.53 K/ul (4.8-10.8) 05/20/23 08:24 RBC 4.63 M/uL (4.70-6.10) L 05/20/23 08:24 Hgb 14.2 g/dl (14.0-18.0) 05/20/23 08:24 Hct 41.8 % (42.0-52.0) L 05/20/23 08:24 MCV 90.3 fL (80.0-100.0) 05/20/23 08:24 MCH 30.7 pg (25.0-34.0) 05/20/23 08:24 MCHC 34.0 g/dL (32.0-36.0) 05/20/23 08:24 RDW Std Deviation 43.2 fL (36.4-46.3) 05/20/23 08:24 RDW Coeff of Selina 13.1 % (11.5-14.5) 05/20/23 08:24 Plt Count 177 K/uL (130-400) 05/20/23 08:24 MPV 10.6 fL (9.4-12.4) 05/20/23 08:24 Immature Gran % (Auto) 0.7 % 05/20/23 08:24 Neut % (Auto) 76.3 % 05/20/23 08:24 Lymph % (Auto) 12.1 % 05/20/23 08:24 Webb % (Auto) 9.0 % 05/20/23 08:24 Eos % (Auto) 1.8 % 05/20/23 08:24 Baso % (Auto) 0.1 % 05/20/23 08:24 Neut # (Auto) 6.51 K/uL (1.40-6.50) H 05/20/23 08:24 Lymph # (Auto) 1.03 K/uL (1.20-3.40) L 05/20/23 08:24 Webb # (Auto) 0.77 K/uL (0.11-0.59) H 05/20/23 08:24 Eos # (Auto) 0.15 K/uL (0.00-0.50) 05/20/23 08:24 Baso # (Auto) 0.01 K/uL (0.00-0.20) 05/20/23 08:24 Immature Gran # (Auto) 0.06 K/uL (0.01-0.20) 05/20/23 08:24 Sodium 140 mmol/L (136-145) 05/20/23 08:24 Potassium 3.9 mmol/L (3.5-5.1) 05/20/23 08:24 Chloride 104 mmol/L (98-107) 05/20/23 08:24 Carbon Dioxide 28 mmol/L (21-32) 05/20/23 08:24 Anion Gap 8 (3-11) 05/20/23 08:24 BUN 26 mg/dl (6-23) H 05/20/23 08:24 Creatinine 1.38 mg/dl (0.6-1.4) 05/20/23 08:24 Est Cr Clr Drug Dosing 35.9 ml/min 05/20/23 08:24 Est GFR ( Amer) 54.8 ml/min 05/20/23 08:24 Est GFR (Non-Af Amer) 47.3 ml/min 05/20/23 08:24 BUN/Creatinine Ratio 18.8 (10-20) 05/20/23 08:24 Glucose 92 mg/dl (70-99(Fasting)) 05/20/23 08:24 POC Glucose 135 mg/dl (70-99) H 05/17/23 06:28 Calcium 9.0 mg/dl (8.6-10.3) 05/20/23 08:24 Phosphorus 3.0 mg/dl (2.5-4.9) D 05/18/23 04:22 Magnesium 2.0 mg/dl (1.7-2.4) 05/19/23 08:01 Total Bilirubin 0.7 mg/dl (0.2-1.0) 05/17/23 04:53 AST 20 U/L (13-39) 05/17/23 04:53 ALT 18 U/L (7-52) 05/17/23 04:53 Alkaline Phosphatase 107 U/L (34-104) H 05/17/23 04:53 Total Protein 6.5 gm/dl (6.0-8.3) 05/17/23 04:53 Albumin 3.8 gm/dl (3.4-5.0) 05/18/23 04:22 Globulin 2.7 gm/dl (2.5-4.0) 05/17/23 04:53 Albumin/Globulin Ratio 1.4 (0.9-2) 05/17/23 04:53 Urine Color Yellow 05/18/23 04:30 Urine Appearance Clear (Clear) 05/18/23 04:30 Urine pH 6.0 (4.5-7.5) 05/18/23 04:30 Ur Specific [place] 1.017 (1.000-1.030) 05/18/23 04:30 Urine Protein Negative (Negative) 05/18/23 04:30 Urine Glucose (UA) Negative (Negative) 05/18/23 04:30 Urine Ketones Negative (Negative) 05/18/23 04:30 Urine Blood Negative (Negative) 05/18/23 04:30 Urine Nitrite Negative (Negative) 05/18/23 04:30 Urine Bilirubin Negative (Negative) 05/18/23 04:30 Urine Urobilinogen Negative (Negative) 05/18/23 04:30 Ur Leukocyte Esterase Negative (Negative) 05/18/23 04:30 Nasal Screen MRSA (PCR) Negative (Negative) 05/17/23 06:[address] 05/16/23 00:32 Exam(s): CT C SPINE EXAM: CT Cervical Spine Without Intravenous Contrast CLINICAL HISTORY: Reason for exam: R sided neck pain. TECHNIQUE: Axial computed tomography images of the cervical spine without intravenous contrast. CTDI is 19.59 mGy and DLP is 365.54 mGy-cm. Automated exposure control was utilized for the study. A dose lowering technique was utilized adhering to the principles of ALARA. Moderate motion/shoulder artifact. COMPARISON: CT cervical spine 05/28/21. FINDINGS: Vertebrae: No acute fracture. Discs/spinal canal/neural foramina: Severe, diffuse degenerative disc and facet disease. No significant interval change. Soft tissues: Unremarkable. IMPRESSION: 1. Severe degenerative change, stable. 2. No acute fracture or interval change.. Electronically signed by: Trinity Zambrano M.D. 05/16/23 02:[address] 05/17/23 04:50 Exam(s): CT HEAD Without Contrast EXAM: CT Head Without Intravenous Contrast CLINICAL HISTORY: Reason for exam: Altered Mental Status. TECHNIQUE: Axial computed tomography images of the head/brain without intravenous contrast. CTDI is 46.48 mGy and DLP is 799.24 mGy-cm. Automated exposure control was utilized for the study. A dose lowering technique was utilized adhering to the principles of ALARA. COMPARISON: May 28, 2021 FINDINGS: Brain: Chronic, small vessel ischemic changes in the white matter. No acute intracranial hemorrhage, edema or abnormal mass-effect. Ventricles: Unremarkable. No ventriculomegaly. Bones/joints: Unremarkable. No acute fracture. Soft tissues: Unremarkable. Sinuses: Unremarkable as visualized. No acute sinusitis. Mastoid air cells: Unremarkable as visualized. No mastoid effusion. IMPRESSION: No acute findings in the head/brain. Electronically signed by: Homero Rich MD 05/17/23 05:43 AM Hospital Course (1) Acute neck pain: 82 yo male with PMHx of CKD, hypertension, shoulder replacements, BPH, lumbar spinal stenosis, SNHL, thoracic facet syndrome, ureteral stones, osteoarthritis of hip, and status post total hip arthroplasty. The patient has undergone cervical spinal fusion in the past, and has always had chronic neck pain, but on arrival had worsened considerably. Acute worsening of chronic neck pain/severe cervical degeneration -CT scan of cervical spine shows stable severe cervical degenerative disc disease -Trial of high dose steroids was ineffective. -Ortho spine consulted - no indication for surgery -Pain management consulted - follow up outpatient for possible nerve block/ablation -Pain regimen recs: voltaren gel 3-4x daily, acetaminophen 1000mg q8h, baclofen 10mg tid, oxycodone 5mg prn BPH | Urinary Retention -ongoing bladder spasms and urinary retention. UA negative, no signs of infection. -urology consulted for linda catheter placement - he will be discharged with this - f/u with urology for removal -Continue finasteride Hypertension -Continue amlodipine, losartan, propranolol Loose Stools -likely overflow diarrhea s/p miralax -low suspicion for c. diff -recommend continued bowel regimen while on opioids (2) Degenerative joint disease of cervical spine: (3) BPH (benign prostatic hyperplasia): (4) Previous back surgery: (5) H/O shoulder replacement: Total Time Total Time Spent Total Time Spent (In Minutes): <30 Discharge Plan Discharge Items Patient Disposition: Home - Self-Care Reason For Visit: INTRACTABLE NECK PAIN Discharge Diagnosis: Cervical DJD and spasm Condition on Discharge: Good Activity: Per Instructions section Non-emergency contact: Primary Care Provider and Pain Management Call non-emergency contact if: you have any medication questions Follow-up/Referrals: Tamara Ames DO [Physician] - 05/23/23 10:30 am Irina Randolph CRNP [Nurse Practitioner] - 05/27/23 9:00 am (Voiding trial) Griffin Meraz [Primary Care Provider] - Diet: Heart Healthy Addtl Attending Provider Instructions: You were admitted to the hospital for severe neck pain which has been attributed to degenerative changes and muscular spasms. You were seen by our orthopedic ad operations specialist who did not think any surgical intervention was necessary at this time. You were also evaluated by pain management and we have constructed a medication regimen to use going forward which will be written below. You will also want to follow up with pain management as an outpatient to discuss alternative options including nerve block/ablations. As for your bladder, a linda catheter was place during the hospitalization for urinary retention which is likely multifactorial with underlying BPH, medication effect, and constipation. We will leave this in on discharge and you should follow up with urology in the outpatient setting for decision to remove. Continue taking your finasteride. Neck Pain Regimen as follows: -Voltaren gel 3-4 times per day -Acetaminophen (tylenol) 1000mg every 8 hours -Baclofen 10mg three times a day -Oxycodone 5mg as needed for breakthrough pain You should also schedule an appointment with your primary care provider so they can further coordinate your care. Pending Studies at Discharge: No Stand-Alone Forms: My [facility], Smoking Cessation Medications and DC Order Prescriptions: New lidocaine 5 % adhesive patch,medicated 1 patch TOP DAILY PRN (Reason: pain) Qty: 15 0RF Rx Instructions: leave on most painful area for 12 hrs oxycodone 5 mg tablet 5 mg PO Q12H PRN (Reason: pain) Qty: 6 0RF prednisone 20 mg tablet See Rx Instructions .ROUTE .COMPLEX 5 Days Qty: 7 0RF Rx Instructions: Please take 2 tablets the first day, 2 tablets the second day, 1 tablet the third day, 1 tablet the 4th day, 1/2 tablet the 5th day. baclofen 10 mg Tablet 10 mg PO TID Qty: 60 0RF Continued finasteride 5 mg tablet 5 mg PO QAM Qty: 90 3RF diphenhydramine-acetaminophen 12.5-325 mg tablet 12.5 tab PO PM PRN (Reason: Sleep) losartan 100 mg tablet 100 mg PO QAM nitroglycerin 0.4 mg tablet, sublingual 0.4 mg sublingual Q5M PRN (Reason: Chest Pain) Rx Instructions: do not exceed 3 doses per episode atorvastatin 40 mg tablet 40 mg PO QAM propranolol 20 mg tablet 20 mg PO BID Qty: 180 3RF cholecalciferol (vitamin D3) 1,000 unit Tablet 1,000 unit PO QAM pyridoxine (vitamin B6) 50 mg Tablet 50 mg PO QAM multivitamin [Multiple Vitamins] Tablet 1 tab PO QAM gabapentin 300 mg capsule 600 mg PO HS omeprazole 20 mg capsule,delayed release(DR/EC) 20 mg PO QAM amlodipine 10 mg tablet 5 mg PO QPM aspirin 81 mg Tablet,Chewable 81 mg PO BID 30 Days Qty: 60 0RF ondansetron 4 mg tablet,disintegrating 4 - 8 mg PO Q8H PRN (Reason: nausea and vomiting) Qty: 14 0RF calcium carbonate 500 mg calcium (1,250 mg) Tablet 500 mg PO QAM Discontinued oxycodone 5 mg tablet 2.5 - 5 mg PO HS PRN (Reason: Pain, Severe) diclofenac sodium 75 mg tablet,delayed release (DR/EC) 75 mg PO BID 30 Days Qty: 60 1RF Discharge Orders: Discharge Order (Routine); Ordered 05/20/23 Ordered By: Travis Martins/Other Patient Handouts: Urinary Catheter Bag Empty Clean, Indwelling Urinary Catheter Dc, Leg Bag Care Dc Admission Data Admit Date/Time: 05/18/23 16:40 Attending Provider: Shin Buchanan Admit Provider: Hema Hewitt Primary Care Provider: Griffin Meraz Other Providers: Hema Hewitt; Booker Hercules; Tamara Ames Other Interventions: Discharge Summary Assessment (RN) Last Done: 05/20/23 14:41 Supervising Physician Co-Signing Physician Notes I personally examined the patient and verified all mathis points of history and exam, discussed case, and agree with decision making with Dr Seals neck feeling a little better. Up and out of bed. Has not walked a lot, but felt strong and comfortable going from bed to chair and walking a tiny bit. Feels like he will be okay at home. Family agrees. Vitals noted, in general he is awake and alert pleasant no distress. HEENT normocephalic atraumatic mucous membranes moist. Breathing unlabored no accessory muscle use good effort. Osteopathic/musculoskeletal shows right-sided C-spine paraspinals high tone, tender, decreased range of motionbut much better overall. Indirect unwinding nonepatient tolerated well. Neck pain/cervical somatic dysfunction/muscle spasmcontinue symptoms/spasm related treatment, OMT as above. Safe/stable for home today. Continue current care otherwise. Appreciate pain management input. Anticipate outpatient OMT as well Bladder spasm/urinary retentionlikely pain mediated acute prostate obstruction. Catheter placed by urologywill leave in for nowoutpatient urology follow-up in the next 1 to 2 weeks for voiding trial and hopefully Linda removal. acute kidney injurywas probably due to poor p.o. fluid intake as well as chronic NSAID regimenNSAID stopped, IV fluidsAKI has now resolved. Discussed avoiding NSAIDs as an outpatient except for may be very limited use under close physician supervision under the right circumstances. DVT prophylaxisheparin subcu. Otherwise as above Resident Activity Tracking Resident Involvement: Resident Care Provided Care Provided: Adult Hospital Medicine
--- NOTE | 2023-05-20 18:02 | Hospitalist Progress Note ---
Date of Service May 20, 2023 Assessment & Plan Admission and Anticipated Discharge Date Admission Date: May 18, 2023 Results & Data Results & Data Vital Signs (Past 12 Hours) Vital Signs Temp Pulse Resp BP Pulse Ox O2 Del Method 05/20/23 07:54 97.9 F 84 18 134/82 91 Room Air PG Care Time/CCT Total # of Minutes Spent Total Time Spent with Patient: Total time spent is greater than 50% in coordination of care (as documented) at patient's floor/unit and/or counseling patient: Coding Level of Care Code None CPT Codes Musculoskeletal - Musculoskeletal: 33385 [address] Domenic Tr 1-2 Body regions ([id number])
--- NOTE | 2023-05-20 18:02 | Billing Data ---
Date of Service May 20, 2023 Coding Level of Care Code 41607 IN/OBS DISCH 30 MIN/LESS
== END 2023-05-20 16:07 | disposition home or self-care (01) | DRG 552 ==
LOC: 3W 20:02 → ED 20:02 → SUATTDRO 05-16 03:30 → 3W 05-16 05:16 → 1E 05-17 06:30 → 3N 05-18 16:00 → SUATTDRO 05-18 16:40

== ENCOUNTER 2023-11-09 09:17 | Inpatient (IN) ==
--- NOTE | 2023-11-09 09:39 | Emergency Department Note ---
Impression & Plan 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, Back pain, Acquired occlusion of inferior vena cava, Acute deep vein thrombosis (DVT) of both lower extremities ED Provider Note NAME: BUSHRA SUN AGE: 82 SEX: M : 1940 ARRIVES VIA: Ambulance INFORMANT: Patient, family, prior records ED PROVIDER(S): Eb Saucedo MD CHIEF COMPLAINT: Back pain MEDICAL DECISION MAKING: Patient presents due to for back pain. IV was established and blood work was obtained. Patient was ordered pain medication and was also ordered a CT of the abdomen pelvis. The patient does have a prior history of spinal surgery but also history of a retroperitoneal bleed. Patient not on blood thinners. Patient's blood work showed a white count of 11 with a normal H&H and platelet count. The patient's kidney function with a creat of 1.6. Urinalysis does not show evidence of blood or infection. CT abdomen pelvis was performed which does show extensive bilateral lower extremity clot burden involving the IVC. Given the extensive clot burden I did initially speak with Dr. Baxter who recommended anticoagulation and admission. I did discuss this with the hospitalist service who recommended talking with vascular surgery [facility]. I did speak with Dr. Cruz who stated that the IVC filter is supposed to participate in clot burden but did not have any specific recommendations and anticoagulation. He did state that IR places the IVC filters. Patient was still having back pain and was unable to ambulate well because of his pain. I did speak the on-call hospital service and the patient was admitted to medicine service. Discussion w/ other healthcare providers: Dr. Gunn and Costa Rizo PA-C inpatient medicine service Dr. Waite [facility] vascular surgery Dr. Baxter anticoagulation specialist Prior /Outside records reviewed: None Differential diagnosis: Musculoskeletal, disc herniation, fracture, sprain, strain, cord compression, discitis, sciatica, cauda equina, infection, renal colic, as well as other pathologies were considered. Diagnostics, as interpreted by me: ECG: None Cardiac monitoring: An order was placed for continuous cardiac monitoring. The monitor shows a rate of 75 with sinus rhythm. Patient was placed on pulse oximetry Medical decision rules: None Imaging studies: I informally interpreted the patient's CT abdomen pelvis does show IVC filter with formal report to follow. HPI: Patient presents due to concern for back pain. The patient states that he was walking around his yard last evening when he felt pain in his back. The patient states that his legs felt heavy and that he did go inside he took an oxycodone which took away some of the pain and allowed him to sleep last evening. The patient states that he got up this morning and he still had discomfort try to go to use the bathroom and broke out in a cold sweat. The patient thinks that this is because of the pain. Patient denies any bowel or bladder incontinence or retention and no saddle anesthesia. Patient denies any falls or trauma no overuse or injury. Patient does have a prior history of spine surgery as well as a prior history of a retroperitoneal bleed. The patient currently does have an IVC filter as the patient was having a bleed from blood clots status post heparin but because of the bleeding the patient did have a filter in place. Currently not on blood thinning medication. The patient denies any chest pains or shortness of breath. No falls or trauma. PAST MEDICAL HISTORY: See Below PAST SURGICAL HISTORY: See Below SOCIAL HISTORY: See Below HOME MEDICATIONS: See Below ALLERGIES: See Below VITALS: See Below PHYSICAL EXAMINATION: GENERAL: NAD, non-toxic. Wearing glasses. EYE EXAM: Normal conjunctiva. PERRL, no anisocoria and EOM's grossly intact w/o pain. OROPHARYNX: Moist mucus membranes, grossly normal dentition. NECK: Trachea midline, no stridor. Supple, no nuchal rigidity, no adenopathy, non-tender. No signs of meningismus. FROM of the neck with good chin to chest and neck extension. LUNGS: Clear to auscultation. Normal chest wall mechanics. HEART: NSR, no MRG. ABDOMEN: Abdomen soft, non-tender, no masses, no rebound or guarding. BACK: Midline upper L-spine lower T-spine pain. SKIN: No rashes and no bruising. UPPER EXTREMITIES: Upper extremities are grossly normal. LOWER EXTREMITIES: No saddle anesthesia good range of motion able to raise both legs up off the bed able to flex at the knees and good dorsiflexion plantarflexion of the bilateral ankles. No sensory deficits. Slight right greater than left lower extremity swelling no significant pitting. No cerulea dolens. NEURO EXAM: A&O x3, cranial nerves II-XII grossly intact, normal speech, moves all 4 extremities. 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 (Acute) Iliopsoas muscle hematoma Retroperitoneal bleed Weakness (Acute) Pulmonary embolism (Acute) Dizziness (Acute) Lightheadedness Cervical facet joint syndrome Urinary retention Degenerative joint disease of cervical spine CKD (chronic kidney disease) (Acute) Acute neck pain (Acute) Renal calculus, left HTN (hypertension) (Chronic) BPH (benign prostatic hyperplasia) Chronic back pain Influenza A Lumbar stenosis Near syncope (Acute) Syncope Dizziness (Acute) Rash DVT prophylaxis Syncope (Acute) Elevated prostate specific antigen (PSA) (Acute) Dyslipidemia (Acute) Disc degeneration, lumbar (Acute) Arthritis (Acute) Actinic keratosis (Acute) Asymmetric SNHL (sensorineural hearing loss) Sensorineural hearing loss (SNHL) of right ear with restricted hearing of left ear Thoracic facet syndrome Erectile dysfunction Proteinuria Osteoarthritis Stage 3b chronic kidney disease Vitamin D deficiency AVB (atrioventricular block) Right ureteral stone Encounter for pre-operative examination Osteoarthritis of left hip S/P total hip arthroplasty Medical History Elevated troponin Leukopenia Thrombocytopenia Hypomagnesemia Bright red blood per rectum Osteoarthritis 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 Nephrolithiasis Essential tremor Hands Anemia Hiatal hernia Ankylosing spondylitis Remotely diagnosed Chronic, constant back pain History of basal cell carcinoma Surgical History Status post placement of cardiac pacemaker History of basal cell carcinoma (BCC) excision History of back surgery x 4 History of left shoulder replacement History of right shoulder replacement History of esophagogastroduodenoscopy (EGD) History of colonoscopy Family History Mother , Mother age 99 with hypertension and arthritis Osteoarthritis Cancer Hypertension Father , Father age 48 of an [place]. 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 Feels Safe at Home: Yes Assistive Devices: None Allergies Allergies Allergy/AdvReac Type Severity Reaction Status Date / Time hydrochlorothiazide Allergy Severe Rash Verified 11/09/23 12:15 doxazosin Allergy Intermediate RASH, Verified 11/09/23 12:15 ITCHING oxaprozin Allergy Intermediate RASH, Verified 11/09/23 12:15 ITCHING mycophenolate mofetil AdvReac Severe "MAKES ME Verified 11/09/23 12:15 [From CellCept] EXTREMELY ILL" terazosin AdvReac Intermediate nervousness Verified 11/09/23 12:15 Home Meds Home Medications Medication Instructions Recorded Confirmed multivitamin (Multiple Vitamins 1 tab PO QAM 03/21/18 11/09/23 tablet) cholecalciferol (vitamin D3) 25 1,000 unit PO QAM 08/05/18 11/09/23 mcg (1,000 unit) tablet pyridoxine (vitamin B6) 50 mg 50 mg PO QAM 08/05/18 11/09/23 tablet atorvastatin 40 mg tablet 40 mg PO QAM 04/03/20 11/09/23 diphenhydramine 12.5 12.5 tab PO PM PRN Sleep 11/27/20 11/09/23 mg-acetaminophen 325 mg tablet losartan 100 mg tablet 100 mg PO QAM 11/27/20 11/09/23 nitroglycerin 0.4 mg sublingual 0.4 mg sublingual Q5M PRN Chest 11/27/20 11/09/23 tablet Pain calcium carbonate 500 mg PO QAM 05/15/23 11/09/23 omeprazole 40 mg capsule,delayed 40 mg PO QAM 05/26/23 11/09/23 release diclofenac sodium 1 % topical gel 1 ea topical QID PRN Pain 06/15/23 11/09/23 amlodipine 5 mg tablet 5 mg PO DAILY 11/09/23 11/09/23 Previous Rx's Medication Instructions Recorded finasteride 5 mg tablet 5 mg PO QAM #90 tabs 10/14/22 lidocaine 5 % topical patch 1 patch topical DAILY PRN pain #15 05/15/23 ea oxybutynin chloride 5 mg tablet 5 mg PO Q8H PRN bladder spasms #30 05/30/23 tabs oxycodone 5 mg tablet 5 mg PO Q6H PRN pain #15 tabs 06/15/23 propranolol 20 mg tablet 20 mg PO BID #180 tabs 10/12/23 Results & Data (ED) Vital Signs Vital Signs - 24 hr 11/09/23 09:29 11/09/23 09:32 11/09/23 09:32 Temperature 36.5 C 36.5 C Temperature Source Oral Oral Pulse Rate 72 86 Pulse Rate [Apical] 86 Respiratory Rate 17 17 Respiratory Effort / Characteristics Non-Labored Spontaneous Non-Labored Spontaneous Respiratory Depth Normal Normal Blood Pressure 130/103 H Blood Pressure [Right Arm] 130/103 H Blood Pressure Mean 112 Blood Pressure Mean [Right Arm] 112 Blood Pressure Position Semi-fowlers Pulse Oximetry 97 97 Oxygen Delivery Method Room Air Room Air Sepsis Recent Fever Within 48 Hours No Sepsis New/Unexplained Change in Mental Status N/A Sepsis Action Taken by Nursing No Action Required Home Medications Current Medication List: was personally reviewed by me Laboratory Data Attestation: I reviewed the patient's lab results. 11/15/23 08:15 11/15/23 08:15 Lab Results 11/09/23 11/09/23 Range/Units 09:33 14:35 WBC 11.79 H (4.8-10.8) K/ul RBC 5.27 (4.70-6.10) M/uL Hgb 15.6 (14.0-18.0) g/dl Hct 46.4 (42.0-52.0) % MCV 88.0 (80.0-100.0) fL MCH 29.6 (25.0-34.0) pg MCHC 33.6 (32.0-36.0) g/dL RDW Std Deviation 43.6 (36.4-46.3) fL RDW Coeff of Selina 13.7 (11.5-14.5) % Plt Count 157 (130-400) K/uL MPV 10.1 (9.4-12.4) fL Immature Gran % (Auto) 0.4 % Neut % (Auto) 79.4 % Lymph % (Auto) 11.1 % [place] % (Auto) 8.4 % Eos % (Auto) 0.4 % Baso % (Auto) 0.3 % Neut # (Auto) 9.36 H (1.40-6.50) K/uL Lymph # (Auto) 1.31 (1.20-3.40) K/uL [place] # (Auto) 0.99 H (0.11-0.59) K/uL Eos # (Auto) 0.05 (0.00-0.50) K/uL Baso # (Auto) 0.03 (0.00-0.20) K/uL Immature Gran # (Auto) 0.05 (0.01-0.20) K/uL Sodium 140 (136-145) mmol/L Potassium 3.7 (3.5-5.1) mmol/L Chloride 105 (98-107) mmol/L Carbon Dioxide 29 (21-32) mmol/L Anion Gap 6 (3-11) BUN 23 (6-23) mg/dl Creatinine 1.66 H (0.6-1.4) mg/dl Est Cr Clr Drug Dosing 28.4 ml/min Est GFR ( Amer) 43.8 ml/min Est GFR (Non-Af Amer) 37.8 ml/min BUN/Creatinine Ratio 13.9 (10-20) Glucose 98 (70-99(Fasting)) mg/dl Calcium 9.5 (8.6-10.3) mg/dl Total Bilirubin 0.8 (0.2-1.0) mg/dl AST 22 (13-39) U/L ALT 37 (7-52) U/L Alkaline Phosphatase 110 H (34-104) U/L Total Protein 7.7 (6.0-8.3) gm/dl Albumin 4.7 (3.4-5.0) gm/dl Globulin 3.0 (2.5-4.0) gm/dl Albumin/Globulin Ratio 1.6 (0.9-2) Lipase 38 (11-82) U/L Urine Color Yellow Urine Appearance Clear (Clear) Urine pH 5.0 (4.5-7.5) Ur Specific [place] > 1.045 H (1.000-1.030) Urine Protein 1+ H (Negative) Urine Glucose (UA) Negative (Negative) Urine Ketones Trace H (Negative) Urine Blood Negative (Negative) Urine Nitrite Negative (Negative) Urine Bilirubin Negative (Negative) Urine Urobilinogen Negative (Negative) Ur Leukocyte Esterase Negative (Negative) Urine WBC (Auto) 0-5 (0-5) /hpf Urine RBC (Auto) 0-2 (0-2) /hpf U Hyaline Cast (Auto) 3-5 H (0-2) /lpf U Epithel Cells (Auto) 0-2 (0-2) /hpf Urine Bacteria (Auto) None Seen (None Seen) Administered Medications Acetaminophen (Acetaminophen 325 Mg Tab) 650 mg PO Q6H [facility] Stop: 12/09/23 17:59 Last Admin: 11/15/23 17:57 Dose: 650 mg Documented By: Admin: 11/15/23 10:55 Dose: 650 mg Documented By: Admin: 11/15/23 06:03 Dose: 650 mg Documented By: Admin: 11/15/23 01:06 Dose: 650 mg Documented By: Admin: 11/14/23 15:17 Dose: 650 mg Documented By: Admin: 11/14/23 11:09 Dose: 650 mg Documented By: Admin: 11/14/23 05:48 Dose: 650 mg Documented By: Admin: 11/13/23 23:52 Dose: 650 mg Documented By: Admin: 11/13/23 18:05 Dose: 650 mg Documented By: Admin: 11/13/23 11:30 Dose: 650 mg Documented By: Admin: 11/13/23 06:05 Dose: 650 mg Documented By: Admin: 11/12/23 23:25 Dose: 650 mg Documented By: Admin: 11/12/23 16:49 Dose: 650 mg Documented By: Admin: 11/12/23 13:05 Dose: 650 mg Documented By: Admin: 11/12/23 05:08 Dose: 650 mg Documented By: Admin: 11/11/23 23:05 Dose: 650 mg Documented By: Admin: 11/11/23 17:10 Dose: 650 mg Documented By: Admin: 11/11/23 12:57 Dose: 650 mg Documented By: Admin: 11/11/23 05:12 Dose: 650 mg Documented By: TKPaul Admin: 11/10/23 23:04 Dose: 650 mg Documented By: Admin: 11/10/23 18:15 Dose: 650 mg Documented By: Admin: 11/10/23 12:15 Dose: 650 mg Documented By: Admin: 11/10/23 05:11 Dose: 650 mg Documented By: TKPaul Admin: 11/09/23 23:07 Dose: 650 mg Documented By: TKPaul Admin: 11/09/23 18:14 Dose: 650 mg Documented By: MANOHAR Amlodipine Besylate (Amlodipine Besylate 5 Mg Tab) 5 mg PO DAILY [facility] Stop: 12/10/23 08:59 Last Admin: 11/15/23 08:10 Dose: 5 mg Documented By: Admin: 11/14/23 09:14 Dose: 5 mg Documented By: Admin: 11/13/23 09:00 Dose: 5 mg Documented By: Admin: 11/12/23 07:51 Dose: Not Given Documented By: Admin: 11/11/23 08:22 Dose: 5 mg Documented By: Admin: 11/10/23 08:02 Dose: 5 mg Documented By: LUANN Atorvastatin Calcium (Atorvastatin 40 Mg Tab) 40 mg PO QAM [facility] Stop: 12/10/23 08:59 Last Admin: 11/15/23 08:09 Dose: 40 mg Documented By: Admin: 11/14/23 09:14 Dose: 40 mg Documented By: Admin: 11/13/23 09:00 Dose: 40 mg Documented By: Admin: 11/12/23 07:51 Dose: 40 mg Documented By: Admin: 11/11/23 08:23 Dose: 40 mg Documented By: Admin: 11/10/23 08:02 Dose: 40 mg Documented By: LUANN Cyclobenzaprine HCl (Cyclobenzaprine Hcl 5 Mg Tab) 5 mg PO TID [facility] Stop: 12/12/23 13:59 Last Admin: 11/15/23 20:10 Dose: 5 mg Documented By: Admin: 11/15/23 14:59 Dose: 5 mg Documented By: Admin: 11/15/23 08:09 Dose: 5 mg Documented By: Admin: 11/14/23 20:28 Dose: 5 mg Documented By: Admin: 11/14/23 13:33 Dose: 5 mg Documented By: Admin: 11/14/23 09:14 Dose: 5 mg Documented By: Admin: 11/13/23 20:09 Dose: 5 mg Documented By: Admin: 11/13/23 14:14 Dose: 5 mg Documented By: Admin: 11/13/23 09:30 Dose: 5 mg Documented By: Admin: 11/12/23 21:13 Dose: 5 mg Documented By: Admin: 11/12/23 13:05 Dose: 5 mg Documented By: BRETT Finasteride (Finasteride 5 Mg Tab) 5 mg PO QAM [facility] Stop: 12/10/23 08:59 Last Admin: 11/15/23 08:09 Dose: 5 mg Documented By: Admin: 11/14/23 09:14 Dose: 5 mg Documented By: Admin: 11/13/23 09:01 Dose: 5 mg Documented By: Admin: 11/12/23 07:50 Dose: 5 mg Documented By: Admin: 11/11/23 08:23 Dose: 5 mg Documented By: Admin: 11/10/23 08:02 Dose: 5 mg Documented By: LUANN Heparin Sodium/Dextrose (Heparin Sodium/Dextrose) 25,000 units in 500 mls @ 12 mls/hr IV .Q24H [facility]A; Protocol Stop: 12/13/23 08:59 Last Admin: 11/15/23 08:47 Dose: Not Given Documented By: Titration: 11/15/23 08:47 Dose: 600 units/hr, 12 mls/hr Documented By: DEANDRA Co-signed By: HORTENSIA Titration: 11/14/23 19:02 Dose: 600 units/hr, 12 mls/hr Documented By: JAY Co-signed By: CHRISSIE Admin: 08/26/24 16:55 Dose: 600 units/hr, 12 mls/hr Documented By: JAY Co-signed By: DALE Titration: 11/14/23 16:55 Dose: Infused Documented By: JAY Co-signed By: DALE Titration: 11/14/23 11:37 Dose: 600 units/hr, 12 mls/hr Documented By: JAY Co-signed By: DRUZE Titration: 11/14/23 10:35 Dose: 0 units/hr, 0 mls/hr Documented By: JAY Co-signed By: HORTENSIA Titration: 11/14/23 03:20 Dose: 800 units/hr, 16 mls/hr Documented By: CHRISSIE Co-signed By: KJL Titration: 11/13/23 20:28 Dose: 850 units/hr, 17 mls/hr Documented By: CHRISSIE Co-signed By: PHILLIP Titration: 11/13/23 16:46 Dose: 0 units/hr, 0 mls/hr Documented By: JAY Co-signed By: JESUSITA Admin: 11/13/23 09:31 Dose: 1,200 units/hr, 24 mls/hr Documented By: JAY Co-signed By: OO Losartan Potassium (Losartan Potassium 50 Mg Tab) 100 mg PO QAM [facility] Stop: 12/10/23 08:59 Last Admin: 11/12/23 07:50 Dose: 100 mg Documented By: Admin: 11/11/23 08:22 Dose: 100 mg Documented By: Admin: 11/10/23 08:02 Dose: 100 mg Documented By: LUANN Miscellaneous (Remove Lidoderm Patch) 1 each N/A DAILY@2100 [facility] Stop: 12/09/23 20:59 Last Admin: 11/15/23 20:08 Dose: Not Given Documented By: Admin: 11/14/23 20:28 Dose: Not Given Documented By: Admin: 11/13/23 20:12 Dose: Not Given Documented By: Admin: 11/12/23 23:24 Dose: Not Given Documented By: Admin: 11/11/23 19:43 Dose: 1 each Documented By: Admin: 11/10/23 19:52 Dose: 1 each Documented By: Admin: 11/09/23 21:20 Dose: 1 each Documented By: LEAH Morphine Sulfate (Morphine Sulfate 2 Mg/Ml Carp) 2 mg IV Q6H PRN PRN Reason: Pain Stop: 11/24/23 18:18 Last Admin: 11/15/23 12:48 Dose: 2 mg Documented By: Admin: 11/14/23 09:19 Dose: 2 mg Documented By: Admin: 11/13/23 10:30 Dose: 2 mg Documented By: Admin: 11/12/23 19:44 Dose: 2 mg Documented By: AMAURY Oxycodone HCl (Oxycodone Hcl Ir 5 Mg Tab (Immediate Release)) 5 mg PO Q4H PRN PRN Reason: Pain(5-7) Stop: 11/23/23 18:10 Last Admin: 11/10/23 08:01 Dose: 5 mg Documented By: LUANN Oxycodone HCl (Oxycodone Hcl Ir 5 Mg Tab (Immediate Release)) 10 mg PO Q4H PRN PRN Reason: Pain(8+) Stop: 11/23/23 18:10 Last Admin: 11/15/23 20:10 Dose: 10 mg Documented By: Admin: 11/15/23 15:02 Dose: 10 mg Documented By: Admin: 11/15/23 10:37 Dose: 10 mg Documented By: Admin: 11/15/23 06:03 Dose: 10 mg Documented By: Admin: 11/15/23 01:06 Dose: 10 mg Documented By: Admin: 11/14/23 19:23 Dose: 10 mg Documented By: Admin: 11/14/23 15:16 Dose: 10 mg Documented By: Admin: 11/14/23 12:11 Dose: 10 mg Documented By: Admin: 11/14/23 05:47 Dose: 10 mg Documented By: Admin: 11/13/23 20:09 Dose: 10 mg Documented By: Admin: 11/13/23 14:14 Dose: 10 mg Documented By: Admin: 11/13/23 06:10 Dose: 10 mg Documented By: Admin: 11/12/23 21:17 Dose: 10 mg Documented By: Admin: 11/12/23 15:34 Dose: 10 mg Documented By: Admin: 11/12/23 10:27 Dose: 10 mg Documented By: Admin: 11/11/23 23:41 Dose: 10 mg Documented By: Admin: 11/11/23 16:03 Dose: 10 mg Documented By: Admin: 11/11/23 09:08 Dose: 10 mg Documented By: Admin: 11/11/23 05:12 Dose: 10 mg Documented By: Admin: 11/10/23 16:08 Dose: 10 mg Documented By: Admin: 11/10/23 12:15 Dose: 10 mg Documented By: LUANN Pantoprazole Sodium (Pantoprazole 40 Mg Tab) 40 mg PO QAM [facility] Stop: 12/10/23 08:59 Last Admin: 11/15/23 08:09 Dose: 40 mg Documented By: Admin: 11/14/23 09:14 Dose: 40 mg Documented By: Admin: 11/13/23 09:01 Dose: 40 mg Documented By: Admin: 11/12/23 08:41 Dose: 40 mg Documented By: Admin: 11/11/23 08:22 Dose: 40 mg Documented By: Admin: 11/10/23 08:02 Dose: 40 mg Documented By: LUANN Polyethylene Glycol (Polyethylene (Miralax) 17 Gm Pack) 17 gm PO DAILY [facility] Stop: 12/14/23 09:59 Last Admin: 11/15/23 08:10 Dose: 17 gm Documented By: Admin: 11/14/23 11:07 Dose: 17 gm Documented By: JAY Propranolol HCl (Propranolol Hcl 20 Mg Tab) 20 mg PO BID [facility] Stop: 12/09/23 20:59 Last Admin: 11/15/23 20:08 Dose: Not Given Documented By: Admin: 11/15/23 08:10 Dose: 20 mg Documented By: Admin: 11/14/23 20:28 Dose: Not Given Documented By: Admin: 11/14/23 09:14 Dose: 20 mg Documented By: Admin: 11/13/23 20:11 Dose: Not Given Documented By: Admin: 11/13/23 09:00 Dose: 20 mg Documented By: Admin: 11/12/23 21:13 Dose: Not Given Documented By: Admin: 11/12/23 07:51 Dose: 20 mg Documented By: Admin: 11/11/23 19:43 Dose: Not Given Documented By: Admin: 11/11/23 08:23 Dose: 20 mg Documented By: Admin: 11/10/23 19:51 Dose: 20 mg Documented By: Admin: 11/10/23 08:02 Dose: 20 mg Documented By: Admin: 11/09/23 21:20 Dose: 20 mg Documented By: LEAH Discontinued Medications Acetaminophen (Acetaminophen 500 Mg Tab) 1,000 mg PO NOW STA Stop: 11/09/23 09:55 Last Admin: 11/09/23 10:21 Dose: 1,000 mg Documented By: KAUSHAL Bisacodyl (Bisacodyl 10 Mg Supp) 10 mg NM NOW STA Stop: 11/15/23 11:17 Last Admin: 11/15/23 11:51 Dose: 10 mg Documented By: DEANDRA Docusate Sodium (Docusate Sodium 100 Mg Cap) 100 mg PO NOW ONE Stop: 11/09/23 17:34 Last Admin: 11/09/23 18:14 Dose: 100 mg Documented By: MANOHAR Famotidine (Famotidine 20 Mg Tab) 20 mg PO NOW ONE Stop: 11/12/23 06:34 Last Admin: 11/12/23 06:37 Dose: 20 mg Documented By: LEAH Fentanyl Citrate (Fentanyl Citrate Pf 100 Mcg/2 Ml Vial) 25 mcg IV NOW ONE Stop: 11/09/23 14:48 Last Admin: 11/09/23 15:02 Dose: 25 mcg Documented By: MANOHAR Furosemide (Furosemide 40 Mg/4 Ml Vial) 40 mg IV ONE ONE Stop: 11/12/23 15:54 Last Admin: 11/12/23 16:48 Dose: 40 mg Documented By: BRETT Heparin Sodium (Porcine) (Heparin Sod (Porcine) 1000 Unit/Ml) 1 units IV NOW ONE Stop: 11/09/23 13:50 Last Admin: 11/09/23 16:03 Dose: Not Given Documented By: MANOHAR Heparin Sodium (Porcine) (Heparin Sod (Porcine) 1000 Unit/Ml) 5,000 units IV NOW ONE Stop: 11/13/23 09:16 Last Admin: 11/13/23 09:31 Dose: 5,000 units Documented By: JAY Co-signed By: CLAYTON Heparin Sodium/Dextrose (Heparin Iv Adult Wt-Based Standard W/ Initial Bolus Protocol) 1 each IV NOW STA; Protocol Stop: 11/09/23 13:34 Last Admin: 11/09/23 16:03 Dose: Not Given Documented By: MANOHAR Heparin Sodium/Dextrose (Heparin Iv Adult Wt-Based Standard W/ Initial Bolus Protocol) 1 each IV NOW STA; Protocol Stop: 11/13/23 08:40 Last Admin: 11/13/23 09:31 Dose: 1 each Documented By: JAY Heparin Sodium/Dextrose (Heparin Sodium/Dextrose) 25,000 units in 500 mls @ 0.02 mls/hr IV .Q24H [facility]; Protocol Stop: 12/09/23 13:59 Last Admin: 11/09/23 16:03 Dose: Not Given Documented By: MANOHAR Lactated Ringer's (Lr) 1,000 mls @ 999 mls/hr IV .Q1H1M ONE Stop: 11/09/23 18:33 Last Infusion: 11/09/23 19:15 Dose: Infused Documented By: Admin: 11/09/23 18:14 Dose: 999 mls/hr Documented By: MANOHAR Lactated Ringer's (Lr) 500 mls @ 999 mls/hr IV .Q31M ONE Stop: 11/11/23 20:26 Last Infusion: 11/11/23 21:05 Dose: Infused Documented By: TKPaul Admin: 11/11/23 20:25 Dose: 999 mls/hr Documented By: LEAH Lactated Ringer's (Lr) 500 mls @ 999 mls/hr IV .Q31M ONE Stop: 11/11/23 23:15 Last Infusion: 11/11/23 23:38 Dose: Infused Documented By: TKPaul Admin: 11/11/23 23:05 Dose: 999 mls/hr Documented By: LEAH Ioversol (Optiray 320 100ml) 94 ml IV ONCE ONE Stop: 11/09/23 11:14 Last Admin: 11/09/23 11:13 Dose: 94 ml Documented By: KARI Lidocaine (Lidocaine 5% 1 Patch) 1 patch TD NOW STA Stop: 11/09/23 09:55 Last Admin: 11/09/23 10:22 Dose: 1 patch Documented By: KAUSHAL Methylprednisolone (Methylprednisolone 125 Mg/2 Ml Vial) 80 mg IV NOW STA Stop: 11/09/23 09:55 Last Admin: 11/09/23 10:21 Dose: 80 mg Documented By: KAUSHAL Morphine Sulfate (Morphine Sulfate 4 Mg/Ml 1 Ml Carp\\Vial) 2 mg IV NOW STA Stop: 11/09/23 09:55 Last Admin: 11/09/23 10:21 Dose: 2 mg Documented By: KAUSHAL Morphine Sulfate (Morphine Sulfate 2 Mg/Ml Carp) 1 mg IV NOW STA Stop: 11/10/23 14:20 Last Admin: 11/10/23 14:27 Dose: 1 mg Documented By: LUANN Morphine Sulfate (Morphine Sulfate 2 Mg/Ml Carp) 1 mg IV Q6H PRN PRN Reason: Pain Stop: 11/24/23 18:18 Last Admin: 11/11/23 17:11 Dose: 1 mg Documented By: Admin: 11/11/23 12:57 Dose: 1 mg Documented By: Admin: 11/11/23 00:35 Dose: 1 mg Documented By: LEAH Oxycodone HCl (Oxycodone Hcl Ir 5 Mg Tab (Immediate Release)) 5 mg PO NOW STA Stop: 11/09/23 13:34 Last Admin: 11/09/23 14:32 Dose: 5 mg Documented By: KAUSHAL Oxycodone HCl (Oxycodone Hcl Ir 5 Mg Tab (Immediate Release)) 5 mg PO NOW STA Stop: 11/09/23 17:34 Last Admin: 11/09/23 18:14 Dose: 5 mg Documented By: MANOHAR Imaging Data Radiologist's Impression: Abdomen/Pelvis CT 11/09/23 09:[address] WITH IV CONTRAST CT DOSE: 849.62 mGy.cm HISTORY: low T and up L spine pain; h/o surgery/retro bleed TECHNIQUE: Multiaxial CT images of the abdomen and pelvis were performed following the use of intravenous contrast. A dose lowering technique was utilized adhering to the principles of ALARA. COMPARISON STUDY: Abdomen and pelvis CT 08/14/2023. FINDINGS: Mild dependent changes seen within the lung bases. 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 No pneumoperitoneum. No pneumatosis. There is a left hip prosthesis. Posterior decompression from L2 through S1 with posterior fusion hardware from L2 through L5. No acute fractures. The left psoas intramuscular hematoma appears to have resolved in the interval. There is a 4 mm stone versus polyp within the gallbladder fundus. The liver, pancreas, spleen, and right adrenal gland unremarkable. Stable 2 cm left adrenal adenoma. The main portal vein is patent. Normal caliber abdominal aorta. No retroperitoneal lymphadenopathy. A few bilateral renal hypodense lesions are again noted. These favor cysts. There are few small bilateral renal calculi. No ureteral calculi. No hydronephrosis. No pelvic lymphadenopathy. Trace pelvic free fluid. The prostate gland remains enlarged. There is diffuse bladder wall thickening with a a few small bladder diverticula. This is likely due to chronic outlet obstruction from the enlarged prostate gland. Colonic diverticulosis. No evidence for acute diverticulitis. No bowel wall thickening or obstruction. Moderate fecal retention. Normal appendix. Interval placement of an IVC filter. There is extensive thrombus throughout the majority of the infrarenal IVC including thrombus just superior to the IVC filter. There is extensive thrombus surrounding the IVC filter and inferior to the IVC filter which extends throughout the bilateral common iliac, internal iliac, external iliac, and visualized femoral veins. The thrombus is essentially occlusive. IMPRESSION: 1. Extensive occlusive deep vein thrombosis involving the IVC, bilateral iliac veins, and visualized bilateral femoral veins. 2. The left psoas intramuscular hematoma has resolved in the interval. 3. No bowel wall thickening or obstruction. 4. Bladder wall thickening. This is likely due to chronic outlet obstruction. 5. Bilaterally nephrolithiasis. No hydronephrosis. 6. A 4 mm stone versus polyp within the gallbladder fundus. 7. Additional findings as described above. ACT 112: Negative or not required by law. Electronically signed by: Mike Cortez M.D. 11/09/2023 12:06 PM Discharge Plan Visit Data Chief Complaint: Back Injury/Pain Stated Complaint: BACK PAIN ED Provider: Eb Saucedo Discharge Problem: 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, Back pain, Acquired occlusion of inferior vena cava, Acute deep vein thrombosis (DVT) of both lower extremities Patient Disposition: Admitted As Inpatient Discharge Instructions Interventions: ED Discharge Assessment Last Done: 11/09/23 20:05 Discharge Problem: Back pain Qualifiers: Back pain location: low back pain Chronicity: acute Acute deep vein thrombosis (DVT) of both lower extremities Qualifiers: Affected thrombotic vein of extremity: unspecified vein of extremity Qualified Code(s): I82.403 - Acute embolism and thrombosis of unspecified deep veins of lower extremity, bilateral
[2023-11-09 10:15] LABS: Basophils # (auto) 0.03 K/uL (0.00-0.20); Basophils % (auto) 0.3 %; Eosinophils # (auto) 0.05 K/uL (0.00-0.50); Eosinophils % (auto) 0.4 %; Hematocrit (blood only) 46.4 % (42.0-52.0); Hemoglobin 15.6 g/dl (14.0-18.0); Immature Granulocytes # (auto) 0.05 K/uL (0.01-0.20); Immature Granulocytes % (auto) 0.4 %; Lymphocytes # (auto) 1.31 K/uL (1.20-3.40); Lymphocytes % (auto) 11.1 %; Mean Corpuscular Hemoglobin 29.6 pg (25.0-34.0); Mean Corpuscular Hgb Conc 33.6 g/dL (32.0-36.0); Mean Platelet Volume 10.1 fL (9.4-12.4); Monocytes # (auto) 0.99 K/uL (0.11-0.59); Monocytes % (auto) 8.4 %; Neutrophils # (auto) 9.36 K/uL (1.40-6.50); Neutrophils % (auto) 79.4 %; Platelet Count 157 K/uL (130-400); RDW Coefficient of Variation 13.7 % (11.5-14.5); RDW Standard Deviation 43.6 fL (36.4-46.3); Red Blood Count 5.27 M/uL (4.70-6.10); White Blood Count 11.79 K/ul (4.8-10.8)
[2023-11-09] MEDS: MoRPHine SULFATE 4 MG/ML 1 ML CARP\\VIAL IV STA (10:21)
[2023-11-09] MEDS: methylPREDNISolone 125 MG/2 ML VIAL IV STA (10:21)
[2023-11-09] MEDS: ACETAMINOPHEN 500 MG TAB PO STA (10:21)
[2023-11-09] MEDS: LIDOCAINE 5% 1 PATCH TD STA (10:22)
[2023-11-09 10:35] LABS: Albumin Globulin Ratio 1.6 (0.9-2); Albumin Level 4.7 gm/dl (3.4-5.0); BUN Creatinine Ratio 13.9 (10-20); Bilirubin,Total 0.8 mg/dl (0.2-1.0); Calcium 9.5 mg/dl (8.6-10.3); Creatinine Clr Calc Pharmacy 28.4 ml/min; Est GFR (African American) 43.8 ml/min; Est GFR (Non-African American) 37.8 ml/min; Potassium 3.7 mmol/L (3.5-5.1); Total Protein 7.7 gm/dl (6.0-8.3)
[2023-11-09] MEDS: OPTIRAY 320 100ml IV ONE (11:13)
--- NOTE | 2023-11-09 12:07 | CT Scan Report ---
ABDOMEN AND PELVIS CT WITH IV CONTRAST CT DOSE: 849.62 mGy.cm HISTORY: low T and up L spine pain; h/o surgery/retro bleed TECHNIQUE: Multiaxial CT images of the abdomen and pelvis were performed following the use of intrave nous contrast. A dose lowering technique was utilized adhering to the principles of ALARA. COMPARISON STUDY: Abdomen and pelvis CT 08/14/2023. FINDINGS: Mild dependent changes seen within the lung bases. 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 No pneumoperi toneum. No pneumatosis. There is a left hip prosthesis. Posterior decompression from L2 through S1 wi th posterior fusion hardware from L2 through L5. No acute fractures. The left psoas intramuscular hem atoma appears to have resolved in the interval. There is a 4 mm stone versus polyp within the gallbla dder fundus. The liver, pancreas, spleen, and right adrenal gland unremarkable. Stable 2 cm left adre nal adenoma. The main portal vein is patent. Normal caliber abdominal aorta. No retroperitoneal lymph adenopathy. A few bilateral renal hypodense lesions are again noted. These favor cysts. There are few small bilateral renal calculi. No ureteral calculi. No hydronephrosis. No pelvic lymphadenopathy. Tr terri pelvic free fluid. The prostate gland remains enlarged. There is diffuse bladder wall thickening with a a few small bladder diverticula. This is likely due to chronic outlet obstruction from the enl arged prostate gland. Colonic diverticulosis. No evidence for acute diverticulitis. No bowel wall thi ckening or obstruction. Moderate fecal retention. Normal appendix. Interval placement of an IVC filte r. There is extensive thrombus throughout the majority of the infrarenal IVC including thrombus just superior to the IVC filter. There is extensive thrombus surrounding the IVC filter and inferior to th e IVC filter which extends throughout the bilateral common iliac, internal iliac, external iliac, and visualized femoral veins. The thrombus is essentially occlusive. IMPRESSION: 1. Extensive occlusive deep vein thrombosis involving the IVC, bilateral iliac veins, and visualized bilateral femoral veins. 2. The left psoas intramuscular hematoma has resolved in the interval. 3. No bowel wall thickening or obstruction. 4. Bladder wall thickening. This is likely due to chronic outlet obstruction. 5. Bilaterally nephrolithiasis. No hydronephrosis. 6. A 4 mm stone versus polyp within the gallbladder fundus. 7. Additional findings as described above. ACT 112: Negative or not required by law. Electronically signed by: Mike Cortez M.D. 11/09/2023 12:06 PM
[2023-11-09] MEDS: oxyCODONE HCL IR 5 MG TAB (IMMEDIATE RELEASE) PO STA ×2 (14:32→18:14)
[2023-11-09] MEDS: fentaNYL citrate PF 100 MCG/2 ML VIAL IV ONE (15:02)
[2023-11-09] MEDS: Heparin IV Adult Wt-Based Standard w/ INITIAL Bolus Protocol IV STA (16:03)
[2023-11-09] MEDS: HEPARIN SOD (PORCINE) 1000 UNIT/ML IV ONE (16:03)
[2023-11-09] MEDS: HEPARIN SODIUM/DEXTROSE 25,000 UNITS/500 ML BAG IV SCH (16:03)
--- NOTE | 2023-11-09 17:11 | History & Physical Report ---
Date of Service November 09, 2023 Assessment & Plan (1) Back pain: Plan: Admit to [facility] Currently stable and nontoxic-appearing Presented to the ED this a.m. with multiple complaints including worsening chronic lumbar back pain, neck pain, and lightheadedness/diaphoresis after standing Has remained stable, labs are unremarkable CT of the abdomen pelvis with IV contrast is negative for acute trauma or changes in the surgical site, did note extensive occlusive deep vein thrombi in the IVC, bilateral iliac vein and visualized bilateral femoral veins Patient notes some heaviness in the bilateral lower extremities since pain has increased last night but has been able to ambulate safely since arrival, denies red flag symptoms and has nonfocal neurologic exam Suspect that his pain related to his chronic lumbar back pain/musculoskeletal pain Will start every 6 hours Tylenol, continue his home 5 mg p.o. oxycodone every 4 hours as needed pain 5-7 Will start 10 mg p.o. oxycodone every 4 hours as needed pain 8+ for now Could consider a trial of muscle relaxer current regimen does not control his pain Hold off on MRI of the lumbar spine at this time, if further clinical concern increases could consider prior discharge Fall/aspiration precautions, as needed Narcan for oversedation/respiratory depression PT/OT consults Heart healthy diet Holding chemical DVT prophylaxis due to patient's recent large retroperitoneal hemorrhage requiring transfer to 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 AM CBC, BMP, mag, PT/INR (2) Neck pain: Plan: Patient is experiencing ongoing at the site of his radio Frequency Ablation Right C2,C3,C4 medial branches on 11/03/2023 with pain management No new neurological findings, it was explained to he and his family that pain can get worse prior to improving in approximately 30 days status post the procedure We will continue with pain management as per back pain plan If current regimen is unsuccessful could consider pain management consult prior to discharge (3) 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: Plan: IVC filter noted to have extensive clot burden today with noted thrombi in the bilateral iliac veins and visualized bilateral femoral veins Discussed options including another trial of systemic anticoagulation although we would not recommend this at this time Patient is without complication from clot burden as he is without signs of swelling lower extremities or venous stasis Patient has family would like to hold off on anticoagulation due to significant bleeding risk at this time He understands that if he would start to develop symptoms of IVC compromise such as significant lower extremity swelling or stasis patient will speak with his PCP (4) HTN (hypertension): Plan: Currently stable Continue amlodipine and losartan (5) BPH (benign prostatic hyperplasia): Plan: Continue finasteride Will follow-up with [facility] when results are available Plan The patient discussed with Dr. 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 in July of this year, who presented to the [facility] ED on 11/09/2023 via EMS due to acute back pain. He was noted to be hypertensive in the ED after but otherwise stable. Labs were significant for a leukocytosis of 11 with neutrophil predominance 9, creatinine of 1.66 (baseline is 1.3). CT of the abdomen pelvis with IV contrast was read as extensive occlusive deep vein thrombosis involving the IVC, bilateral iliac veins, and visualized bilateral femoral veins. The left psoas intramuscular hematoma has resolved in the interval. No bowel wall thickening or obstruction. Bladder wall thickening. This is likely due to chronic outlet obstruction. Bilateral nephrolithiasis. No hydronephrosis. A 4 mm stone versus polyp within the gallbladder fundus. Patient was given 1 g IV Tylenol, 25 mcg IV fentanyl, lidocaine patch, 80 mg IV methylprednisolone, 2 mg IV morphine, and 5 mg p.o. oxycodone while in the ED without significant improvement in his symptoms. The ED staff did speak with [facility] who confirmed that the IVC filter appears to be functioning appropriately and would not make recommendati ons for systemic anticoagulation. We are asked to admit the patient for ongoing uncontrolled back pain. Patient was lying in bed in no acute distress at time of exam with his son and daughter sitting bedside, history is obtained from both. He explains that he had been in his normal state of health yesterday evening and went on a walk around his property to get some exercise before bed. States that on his first loop he felt well. During his second loop he started to feel increased pain in his lumbar back at the site of his normal lumbar back pain and previous surgical site. Denies saddle anesthesia, loss of bowel or bladder function, new paresthesias in either lower extremity, or unilateral lower extremity weakness since this pain started. However, he states that after the pain increased he has been experiencing "heaviness" in the bilateral lower extremities. Has not had a fall since this pain increase. He did take his home oxycodone last night and was able to fall asleep. However when he woke up this morning, his pain was again severe. He went to the bathroom to try and have a bowel movement but was unable to. After standing he experienced a sudden onset of lightheadedness and diaphoresis which subsided after rest. At the present time his lumbar back pain is under control while lying and resting but he is having approximately 8 out of 10 pain in the right cervical spine at his recent Radio Frequency Ablation of the Right C2,C3,C4 Medial Branches on 11/03/2023. Denies weakness or paresthesias in the upper extremities since pain is exacerbated. We had a long discussion regarding her increased clot burden his IVC filter. He is not experiencing side effects of increased clot burden such as lower extremity swelling. We explained that it was thought that the lucent pedicle screw in his lumbar spine was the cause of his large peritoneal hematoma and he was started on heparin drip in July of this year. They confirm that it is likely too high risk of a procedure to have the screw removed. Since the patient is not experiencing symptoms from increased clot burden the IVC filter and will be at significantly high risk of bleeding if he were to be restarted on anticoagulation he and his family are in agreement that they would not want to start anticoagulation at this time. Patient confirms that he is a full code Discharge to make decisions for him if he cannot make them himself. Please refer to Dr. Gunn's attestation for any changes to treatment plan Allergies Allergy/AdvReac Type Severity Reaction Status Date / Time hydrochlorothiazide Allergy Severe Rash Verified 11/09/23 12:15 doxazosin Allergy Intermediate RASH, Verified 11/09/23 12:15 ITCHING oxaprozin Allergy Intermediate RASH, Verified 11/09/23 12:15 ITCHING mycophenolate mofetil AdvReac Severe "MAKES ME Verified 11/09/23 12:15 [From CellCept] EXTREMELY ILL" terazosin AdvReac Intermediate nervousness Verified 11/09/23 12:15 Home Medications Medication Instructions Recorded Confirmed Type multivitamin (Multiple Vitamins 1 tab PO QAM 03/21/18 11/09/23 History tablet) cholecalciferol (vitamin D3) 25 1,000 unit PO QAM 08/05/18 11/09/23 History mcg (1,000 unit) tablet pyridoxine (vitamin B6) 50 mg 50 mg PO QAM 08/05/18 11/09/23 History tablet atorvastatin 40 mg tablet 40 mg PO QAM 04/03/20 11/09/23 History diphenhydramine 12.5 12.5 tab PO PM PRN Sleep 11/27/20 11/09/23 History mg-acetaminophen 325 mg tablet losartan 100 mg tablet 100 mg PO QAM 11/27/20 11/09/23 History nitroglycerin 0.4 mg sublingual 0.4 mg sublingual Q5M PRN Chest 11/27/20 11/09/23 History tablet Pain finasteride 5 mg tablet 5 mg PO QAM #90 tabs 10/14/22 11/09/23 Rx calcium carbonate 500 mg PO QAM 05/15/23 11/09/23 History lidocaine 5 % topical patch 1 patch topical DAILY PRN pain #15 05/15/23 11/09/23 Rx ea omeprazole 40 mg capsule,delayed 40 mg PO QAM 05/26/23 11/09/23 History release oxybutynin chloride 5 mg tablet 5 mg PO Q8H PRN bladder spasms #30 05/30/23 11/09/23 Rx tabs diclofenac sodium 1 % topical gel 1 ea topical QID PRN Pain 06/15/23 11/09/23 History oxycodone 5 mg tablet 5 mg PO Q6H PRN pain #15 tabs 06/15/23 11/09/23 Rx propranolol 20 mg tablet 20 mg PO BID #180 tabs 10/12/23 11/09/23 Rx amlodipine 5 mg tablet 5 mg PO DAILY 11/09/23 11/09/23 History Past Med/Surg History Problem List Neck pain Back pain 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 Iliopsoas muscle hematoma Retroperitoneal bleed Weakness (Acute) Pulmonary embolism (Acute) Dizziness (Acute) Lightheadedness Cervical facet joint syndrome Urinary retention Degenerative joint disease of cervical spine CKD (chronic kidney disease) (Acute) Acute neck pain (Acute) Renal calculus, left HTN (hypertension) (Chronic) BPH (benign prostatic hyperplasia) Chronic back pain Influenza A Lumbar stenosis Near syncope (Acute) Syncope Dizziness (Acute) Rash DVT prophylaxis Syncope (Acute) Elevated prostate specific antigen (PSA) (Acute) Dyslipidemia (Acute) Disc degeneration, lumbar (Acute) Arthritis (Acute) Actinic keratosis (Acute) Asymmetric SNHL (sensorineural hearing loss) Sensorineural hearing loss (SNHL) of right ear with restricted hearing of left ear Thoracic facet syndrome Erectile dysfunction Proteinuria Osteoarthritis Stage 3b chronic kidney disease Vitamin D deficiency AVB (atrioventricular block) Right ureteral stone Encounter for pre-operative examination Osteoarthritis of left hip S/P total hip arthroplasty Medical History Elevated troponin Leukopenia Thrombocytopenia Hypomagnesemia Bright red blood per rectum Osteoarthritis 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 Myocardial infarction Other Family history non-contributory No family history of adverse response to anesthesia No family history of allergies No family history of bleeding disorder Denies family history of Hearing loss Heart disease Stroke Asthma Social History Smoking Status: Never smoker Second Hand Exposure: Yes ( smoked for 35 years per patient); Do You Dip or Chew Tobacco: No; Hx Alcohol Use: No Hx Substance Use: No Preferred Language: Bengali Communication Ability: Effective Visual Impairment: No Limitations [employer] Required: No Beliefs That Will Affect Care: None marital status: Current Living Situation: Family Current Living Situation Comment: Lives at home with daughter. 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 Feels Safe at Home: Yes Safety Concerns: Feels Safe At This Time Assistive Devices: Hospital Bed Physical Exam Physical Exam: Physical Exam: General: In no acute distress, stated age, well-nourished, good hygiene HEENT: Normocephalic, atraumatic, no scleral icterus, pupils around round, symmetrical, and reactive to light, moist mucus membranes, trachea midline, no thyromegaly Chest/Pulm: No respiratory distress, symmetrical chest expansion, clear breath sounds throughout Cardiac: RRR, no murmurs noted Abdomen: Negative for ascites and bruising, normoactive bowel sounds, soft, non-tender to palpation throughout Musculoskeletal: Tenderness to palpation of the right paraspinal muscles at the recent site of right cervical nerve ablation, no tenderness to palpation over the cervical spine, intact and symmetrical range of motion in the bilateral upper and lower extremities, no acute trauma on palpation of the lumbar spine Extremities: Radial, dorsalis pedis, and posterior tibial pulses are intact and symmetrical, no edema noted in the BL LE's Skin: Warm, dry, no rashes , lesions, or scars noted Neuro: Alert and oriented to person, place, month, year, and president, no focal defects, CN II-XII tested and intact, symmetrical strength in the bilateral upper and lower extremities, straight leg raise in the bilateral lower extremities does not exacerbate his lumbar back pain Psych: No acute distress, calm and cooperative during the exam Results & Data Results & Data Vital Signs (Past 12 Hours) Vital Signs Temp Pulse Pulse Resp BP BP Pulse Ox 11/09/23 16:03 87 14 94 11/09/23 16:00 142/97 H 11/09/23 15:45 85 20 96 11/09/23 15:39 85 95 11/09/23 15:06 77 13 96 11/09/23 15:00 161/97 H 11/09/23 14:34 85 17 137/94 97 08/21/24 11:30 65 17 144/97 H 94 11/09/23 09:58 67 17 97 11/09/23 09:32 36.5 C 86 17 130/103 H 97 11/09/23 09:32 36.5 C 86 17 130/103 H 97 11/09/23 09:29 72 O2 Del Method 11/09/23 16:03 Room Air 11/09/23 16:00 11/09/23 15:45 Room Air 11/09/23 15:39 Room Air 11/09/23 15:06 Room Air 11/09/23 15:00 11/09/23 14:34 Room Air 11/09/23 11:30 Room Air 11/09/23 09:58 Room Air 11/09/23 09:32 Room Air 11/09/23 09:32 Room Air 11/09/23 09:29 Laboratory Results Abnormal lab results 11/09/23 Range/Units 09:33 WBC 11.79 H (4.8-10.8) K/ul Neut # (Auto) 9.36 H (1.40-6.50) K/uL Cedar # (Auto) 0.99 H (0.11-0.59) K/uL Creatinine 1.66 H (0.6-1.4) mg/dl Alkaline Phosphatase 110 H (34-104) U/L Diagnostic Findings Abdomen/Pelvis CT 11/09/23 09:[address] WITH IV CONTRAST CT DOSE: 849.62 mGy.cm HISTORY: low T and up L spine pain; h/o surgery/retro bleed TECHNIQUE: Multiaxial CT images of the abdomen and pelvis were performed fol lowing the use of intravenous contrast. A dose lowering technique was utilized adhering to the principles of ALARA. COMPARISON STUDY: Abdomen and pelvis CT 08/14/2023. FINDINGS: Mild dependent changes seen within the lung bases. 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 No pneumoperitoneum. No pneumatosis. There is a left hip prosthesis. Posterior decompression from L2 through S1 with posterior fusion hardware from L2 through L5. No acute fractures. The left psoas intramuscular hematoma appears to have resolved in the interval. There is a 4 mm stone versus polyp within the gallbladder fundus. The liver, pancreas, spleen, and right adrenal gland unremarkable. Stable 2 cm left adrenal adenoma. The main portal vein is patent. Normal caliber abdominal aorta. No retroperitoneal lymphadenopathy. A few bila teral renal hypodense lesions are again noted. These favor cysts. There are few small bilateral renal calculi. No ureteral calculi. No hydronephrosis. No pelvic lymphadenopathy. Trace pelvic free fluid. The prostate gland remains enlarged. There is diffuse bladder wall thickening with a a few small bladder diverticula. This is likely due to chronic outlet obstruction from the enlarged prostate gla nd. Colonic diverticulosis. No evidence for acute diverticulitis. No bowel wall thickening or obstruction. Moderate fecal retention. Normal appendix. Interval placement of an IVC filter. There is extensive thrombus throughout the majority of the infrarenal IVC including thrombus just superior to the IVC filter. There is extensive thrombus surrounding the IVC filter and inferior to the IVC filter which extends throughout the bilateral common iliac, internal iliac, external iliac, and visualized femoral veins. The thrombus is essentially occlusive. IMPRESSION: 1. Extensive occlusive deep vein thrombosis involving the IVC, bilateral iliac veins, and visualized bilateral femoral veins. 2. The left psoas intramuscular hematoma has resolved in the interval. 3. No bowel wall thickening or obstruction. 4. Bladder wall thickening. This is likely due to chronic outlet obstruction. 5. Bilaterally nephrolithiasis. No hydronephrosis. 6. A 4 mm stone versus polyp within the gallbladder fundus. 7. Additional findings as described above. ACT 112: Negative or not required by law. Electronically signed by: Mike Cortez M.D. 11/09/2023 12:06 PM Code Status & VTE Plan Code Status Full code VTE Prophylaxis Plan VTE Prophylaxis will be ordered: No Supervising Physician Co-Signing Physician Notes I personally saw and examined the patient. I verified all mathis points and agree with Costa Rizo PA-C with the following exceptions and/or additions: 82 year old male who presents to the ER with lower back pain radiating down both legs O/E HS RRR, no murmurs, Chest CTAB, Abdo SNT, 1+ pedal edema bilateral A/P Back pain - suspect unrelated to DVT, suspected lumbar radiculopathy, pain medication, PT/OT evals DVT - risk of anticoagulation high given prior spontaneous life threatening bleed presumed from pedicle screw which cannot be removed. IVC filter appears to working well. No significant leg swelling or venous ulcers to warrant anticoagulation for this reason. 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
[2023-11-09] MEDS ORDERED: NALOXONE HCL 0.4 MG/1 ML VIAL/CARP IV PRN (17:36)
[2023-11-09] MEDS: DOCUSATE SODIUM 100 MG CAP PO ONE (18:14)
[2023-11-09] MEDS: LACTATED RINGER'S 1,000 ML IV ONE (18:14)
[2023-11-09] MEDS: ACETAMINOPHEN 325 MG TAB PO SCH (18:14)
--- OUTSIDE RECORDS SUMMARY | 2023-11-09 18:48 | External Medical Summary | Continuity of Care Document ---
Author Name Unknown Organization [facility] [address] [place] [id number] Care Team Providers Care Church Business Administrator Name Role Phone Griffin Meraz Primary Care Physician [phone] [id number] Date(s): 11/04/23 - 11/04/23 [facility] [place] [address], [address], [address] [place] [id number] [phone] Discharge Disposition: Home or Self Care Attending Physician: DO Sosa Jason D Referring Physician: DO Sosa Jason D Allergies, Adverse Reactions, Alerts Substance Criticality Severity Reaction Reaction Severity Status terazosin Unable to assess criticality Mild nervousness Active doxazosin Unable to assess criticality Mild RASH, ITCHING Active oxaprozin RASH, ITCHING Active gabapentin drowsy Active CellCept Severe acid reflux Active hydroCHLOROthiazide Rash Active Immunizations Given and Recorded Vaccine Date Status Refusal Reason RSV vaccine, preF A-preF B, recombinant 12/21/22 R ecorded influenza virus vaccine, inactivated 01/26/22 Give n [...] influenza virus vaccine, inactivated 01/10/12 Give n SARS-CoV-2 (COVID-19) mRNA BNT-162b2 vax 03/03/21 Recorded SARS-CoV-2 (COVID-19) mRNA BNT-162b2 vax 05/30/20 Recorded SARS-CoV-2 (COVID-19) mRNA BNT-162b2 vax 05/09/20 Recorded zoster vaccine, inactivated 02/04/20 Recorded zoster vaccine, inactivated 2 11/15/19 Recorded pneumococcal 23-valent vaccine 12/26/17 Given pneumococcal 23-valent vaccine 01/14/06 Recorded tetanus/diphtheria/pertuss, acel (Tdap) 10/20/17 R ecorded pneumococcal 13-valent vaccine 11/26/14 Given influenza virus vaccine, H1N1 04/17/09 Recorded zoster vaccine live 3 09/01/07 Recorded tetanus toxoids-diphtheria, Td (Adult) 4 06/25/02 Recorded Not Given Vaccine Date Status Refusal Reason pneumococcal 20-valent conjugate vaccine 5 08/20/23 Not Given Patient Refuses 1Result Comment: Given at [facility]. 2Result Comment: Given at [facility]. 3Result Comment: 2017-03-25: Historical information-source unspecified 4Result Comment: 2017-03-25: Historical information-source unspecified 5Result Comment: pt states he believes he received this in January of 2023, instructed to follow upwith PCP regarding vaccine records. Medications amLODIPine 5 mg oral tablet Start: 08/30/23 2:11:00 PM EDT, 1 tab, PO, Daily, Disp# 90 tab, Refills: 3, Pharmacy: [facility]/pharmacy #[id number] Start Date: 08/30/23 Status: Ordered atorvastatin 40 mg oral tablet Start: 08/30/23 2:11:00 PM EDT, See Instructions, Disp# 90 tab, Refills: 3, take 1 tablet by mouth at bedtime, Pharmacy: [facility]/pharmacy #[id number] Start Date: 08/30/23 Status: Ordered calcium carbonate 500 mg (200 mg elemental calcium) oral tablet, chewable Start: 08/16/23 11:42:00 PM EDT, 1 tab, PO, Daily, PRN: as needed for indigestion Start Date: 08/16/23 Status: Ordered Cymbalta 20 mg oral delayed release capsule Start: 08/30/23 2:11:00 PM EDT, 1 cap, PO, Daily, Disp# 30 cap, Refills: 3, Pharmacy: [facility]acy #[id number] Start Date: 08/30/23 Stop Date: 12/28/23 Status: Ordered finasteride 5 mg oral tablet Start: 08/30/23 2:11:00 PM EDT, 1 tab, PO, Daily, Disp# 90 tab, Refills: 3, [id number] Start Date: 08/30/23 Stop Date: 08/24/24 Status: Ordered hydrocortisone 2.5% topical cream Start: 08/30/23 2:19:00 PM EDT, 1 appl, topical, qid, Disp# 30 g, [id number] Start Date: 08/30/23 Status: Ordered hydrOXYzine hydrochloride 25 mg oral tablet Start: 08/30/23 2:11:00 PM EDT, 1 tab, PO, qid, Disp# 30 tab, PRN: as needed for anxiety, [id number] Start Date: 08/30/23 Stop Date: 09/09/23 Status: Ordered losartan 100 mg oral tablet Start: 08/30/23 2:11:00 PM EDT, 1 tab, PO, Daily, Disp# 90 tab, Refills: 3, Pharmacy: [facility]/pharmacy #[id number] Start Date: 08/30/23 Status: Ordered multivitamin Start: 07/30/15 9:46:00 AM EDT, 1 tab, PO, Daily Start Date: 07/30/15 Status: Ordered Narcan 4 mg/0.1 mL nasal spray Start: 01/26/23 5:09:00 PM EST, 4 mg =, intranasal, ONCE, Disp# 2 each, Refills: 1, For use with opioid overdose; may repeat every 2 to 3 minutes until patient responds, Pharmacy: [facility][id number] Start Date: 01/26/23 Status: Ordered Nitrostat 0.4 mg sublingual tablet Start: 07/10/18 12:23:00 PM EDT, 1 tab, SL, q5min, Disp# 100 tab, Refills: 3, PRN: as needed for chest pain, Pharmacy: [facility] Start Date: 07/10/18 Stop Date: 11/07/18 Status: Ordered omeprazole 40 mg oral delayed release capsule Start: 10/11/23 9:24:00 AM EDT, 20 mg =, PO, Daily, Disp# 90 cap, Refills: 0, Pharmacy: [facility]/pharmacy#[id number] Start Date: 10/11/23 Status: Ordered omeprazole 40 mg oral delayed release capsule Start: 10/10/23 5:07:00 PM EDT, 1 cap, PO, Daily, Disp# 90 cap, Refills: 0, Pharmacy: [facility] [id number] Start Date: 10/10/23 Status: Ordered oxyBUTYnin 5 mg oral tablet Start: 08/30/23 2:11:00 PM EDT, 1 tab, PO, bid, Disp# 60 tab, Refills: 5, PRN: as needed for urinarydiscomfort, Pharmacy: [facility]/pharmacy #[id number] Start Date: 08/30/23 Status: Ordered oxyCODONE 5 mg oral tablet Start: 10/11/23 9:24:00 AM EDT, See Instructions, Disp# 45 tab, Refills: 0, 1 tablet up to twice daily as needed for pain, Note to Pharmacy: ongoing tx, PRN: as needed for pain, [id number] Start Date: 10/11/23 Status: Ordered propranolol 20 mg oral tablet Start: 10/11/23 4:15:00 PM EDT, 1 tab, PO, bid, Disp# 180 tab, Refills: 3, Pharmacy: [facility]/pharmacy #[id number] Start Date: 10/11/23 Status: Ordered Senokot S 50 mg-8.6 mg oral tablet Start: 06/26/21 10:23:00 AM EDT, 1 tab, PO, qhs, Disp# 60 tab, PRN: Constipation, [facility]acy: [facility] Start Date: 06/26/21 Status: Ordered Tylenol Extra Strength PM 500 mg-25 mg oral tablet Start: 08/18/23 9:33:00 AM EDT, 1 tab, PO, qhs Start Date: 08/18/23 Status: Ordered Tylenol PM Start: 06/16/20 2:55:00 PM EDT Start Date: 06/16/20 Status: Ordered Vitamin B6 50 mg oral tablet Start: 08/30/23 2:11:00 PM EDT, 1 tab, PO, Daily, Disp# 30 tab, Refills: 0, Pharmacy: [facility]/pharmacy #[id number] Start Date: 08/30/23 Status: Ordered Vitamin D3 Start: 09/20/22 1:37:00 PM EDT, 125 mcg =, Daily Start Date: 09/20/22 Status: Ordered Problem List Condition Confirmation Course Effective Dates Status H ealth Status Informant Anemia Confirmed Active Arthritis Confirmed Active Back pain Confirmed Active Barretts esophagus Confirmed Active 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 Confirmed Active Basal cell carcinoma of nose 1 Confirmed 07/30/15 Active Tarsal tunnel syndrome, bilateral Confirmed Active BPH Confirmed Active Pacemaker Confirmed Active Pacemaker Confirmed Active 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 Active Hypertensive chronic kidney disease Confirmed Active Chronic kidney disease, stage 3b 2 Confirmed Active CAD in [place] artery Confirmed Active DVT (deep venous thrombosis) Confirmed Active Dysphagia Confirmed Active Rash Confirmed Active Other fatigue Confirmed Active GERD Confirmed Active Previous back surgery Confirmed Active HEARING LOSS Confirmed Active Hiatal hernia Confirmed Active H/O shoulder replacement Confirmed Active HTN - Hypertension Confirmed Active Hyperlipidemia Confirmed Active Insomnia Confirmed Active Stone in kidney Confirmed Active Lipoma Confirmed 04/19/11 Active Degenerative joint disease (DJD) of hip Confirmed Active Anorexia Confirmed Active Lumbar post-laminectomy syndrome Confirmed Active Acute left lumbar radiculopathy Confirmed Active MDD (major depressive disorder) Confirmed Active Neck pain Confirmed Active Osteoarthrosis Confirmed Active Osteopenia Confirmed Active Wrist pain Confirmed Active Premature beat Confirmed Active PROTEINURIA Confirmed Active Single subsegmental pulmonary embolism without acute cor pulmonale Confirmed Active Raised prostate specific antigen Confirmed Active Urine retention Confirmed Active SHOULDER PAIN Confirmed Active Syncope Confirmed Active DJD (degenerative joint disease) of thoracic spine Confirmed Active Thoracic radiculopathy Confirmed Active Tremor Confirmed Active 1left ala nodular ulcerative 2[facility]- Nephrology Procedures Procedure Date Related Diagnosis Body Site [...] fracture or dislocation. 19A-left preauricular B- right mandaen 20by Leonel Christine, DO 211. Extensive postsurgical [...] 3 40report does not indicate any path. [facility] website did not have any path. 41EGD Schatzkis ring noted was dilated, antral erosions, duod bulb erosions. 42repeat in 5 years Social History Social History Type Response Smoking Status Never smoked cigaret rony Sex Male Sex Representation Male (finding) Patient Care team information Care Team Personnel Name: Tamera Karu, Evi Arenas Position: Pharmacist Member Role: Pharmacy - Lifetime Address: [address] [address] [place] Name: MD Kt, Griffin Position: Physician - Family Med Member Role: Primary Care Provider Address: [address] [address] [place] Name: Tamera Monreal, Horacio Position: Pharmacist Member Role: Pharmacy - Lifetime Care Team Related Persons Name: SWETA SUN
[2023-11-09 19:36] LABS: Appearance Urine Clear (Clear); Bacteria Urine Automated None Seen (None Seen); Bilirubin Urine Negative (Negative); Blood Urine Negative (Negative); Color Urine Yellow; Epithelial Cell Urine Auto 0-2 /hpf (0-2); Glucose Urine UA Negative (Negative); Ketones Urine Trace (Negative); Leukocyte Esterase Urine Negative (Negative); Nitrite Urine Negative (Negative); Protein Urine 1+ (Negative); RBC Urine Automated 0-2 /hpf (0-2); Specific Gravity Urine > 1.045 (1.000-1.030); Urobilinogen Urine Negative (Negative); WBC Urine Automated 0-5 /hpf (0-5)
[2023-11-09] MEDS ORDERED: oxyBUTYnin chloride 5 MG TAB PO PRN (20:40)
[2023-11-09] MEDS: PROPRANOLOL HCL 20 MG TAB PO SCH (21:20)
[2023-11-10 06:47] LABS: Basophils # (auto) 0.01 K/uL (0.00-0.20); Basophils % (auto) 0.1 %; Hematocrit (blood only) 42.6 % (42.0-52.0); Hemoglobin 14.5 g/dl (14.0-18.0); Immature Granulocytes # (auto) 0.04 K/uL (0.01-0.20); Immature Granulocytes % (auto) 0.3 %; Lymphocytes # (auto) 0.99 K/uL (1.20-3.40); Lymphocytes % (auto) 8.5 %; Mean Corpuscular Hemoglobin 29.6 pg (25.0-34.0); Mean Corpuscular Volume 86.9 fL (80.0-100.0); Mean Platelet Volume 10.2 fL (9.4-12.4); Monocytes # (auto) 0.76 K/uL (0.11-0.59); Monocytes % (auto) 6.5 %; Neutrophils % (auto) 84.6 %; Platelet Count 138 K/uL (130-400); RDW Coefficient of Variation 13.5 % (11.5-14.5); RDW Standard Deviation 42.4 fL (36.4-46.3)
[2023-11-10 07:11] LABS: BUN Creatinine Ratio 20.5 (10-20); Creatinine Clr Calc Pharmacy 33.9 ml/min; Est GFR (African American) 51.2 ml/min; Est GFR (Non-African American) 44.2 ml/min; Potassium 4.1 mmol/L (3.5-5.1)
[2023-11-10] MEDS: oxyCODONE HCL IR 5 MG TAB (IMMEDIATE RELEASE) PO PRN ×2 (08:01→12:15)
[2023-11-10] MEDS: ATORVASTATIN 40 MG TAB PO SCH (08:02)
[2023-11-10] MEDS: FINASTERIDE 5 MG TAB PO SCH (08:02)
[2023-11-10] MEDS: amLODIPine BESYLATE 5 MG TAB PO SCH (08:02)
[2023-11-10] MEDS: PANTOprazole 40 MG TAB PO SCH (08:02)
[2023-11-10] MEDS: LOSARTAN POTASSIUM 50 MG TAB PO SCH (08:02)
--- NOTE | 2023-11-10 14:24 | Hospitalist Progress Note ---
Date of Service November 10, 2023 Assessment & Plan (1) Back pain: Plan: Presented to the ED this a.m. with multiple complaints including worsening chronic lumbar back pain, neck pain, and lightheadedness/diaphoresis after standing Has remained stable, labs are unremarkable CT of the abdomen pelvis with IV contrast is negative for acute trauma or changes in the surgical site, did note extensive occlusive deep vein thrombi in the IVC, bilateral iliac vein and visualized bilateral femoral veins Patient notes some heaviness in the bilateral lower extremities since pain has increased last night but has been able to ambulate safely since arrival, denies red flag symptoms and has nonfocal neurologic exam Suspect that his pain related to his chronic lumbar back pain/musculoskeletal pain Continue every 6 hours Tylenol, continue his home 5 mg p.o. oxycodone every 4 hours as needed pain 5-7 Continue 10 mg p.o. oxycodone every 4 hours as needed pain 8+ for now The nurse stated that he is still in pain. Ordered a dose of morphine Could consider a trial of muscle relaxer current regimen does not control his pain The patient is requesting an MRI of the lumbar spine. Ordered Patient is also requesting to see Dr. Salas. Consult placed Fall/aspiration precautions, as needed Narcan for oversedation/respiratory depression PT/OT consults Heart healthy diet Holding chemical DVT prophylaxis due to patient's recent large retroperitoneal hemorrhage requiring transfer to 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 (2) Neck pain: Plan: Patient is experiencing ongoing at the site of his radio Frequency Ablation Right C2,C3,C4 medial branches on 11/03/2023 with pain management No new neurological findings, it was explained to he and his family that pain can get worse prior to improving in approximately 30 days status post the procedure We will continue with pain management as per back pain plan If current regimen is unsuccessful could consider pain management consult prior to discharge (3) 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: Plan: IVC filter noted to have extensive clot burden today with noted thrombi in the bilateral iliac veins and visualized bilateral femoral veins Admitting provider discussed options including another trial of systemic anticoagulation although we would not recommend this at this time Patient is without complication from clot burden as he is without signs of swelling lower extremities or venous stasis Patient has family would like to hold off on anticoagulation due to significant bleeding risk at this time He understands that if he would start to develop symptoms of IVC compromise such as significant lower extremity swelling or stasis patient will speak with his PCP (4) HTN (hypertension): Plan: Currently stable Continue amlodipine and losartan (5) BPH (benign prostatic hyperplasia): Plan: Continue finasteride Will follow-up with [facility] when results are available Admission and Anticipated Discharge Date Admission Date: November 09, 2023 Subjective Patient complains of back pain. Denies chest pain or shortness of breath. Review of Systems Review of Systems: All systems reviewed & are unremarkable except as noted in Subjective Physical Exam Physical Exam: General: Awake, conversant Heart: S1, S2/regular rate and rhythm, no murmur rubs or gallops Lungs: Clear to auscultation bilaterally. Normal effort Abdomen: Soft/nontender/nondistended. No hepatosplenomegaly Extremities: No clubbing/cyanosis. No edema Behavior: Appropriate, cooperative Results & Data Results & Data Vital Signs (Past 12 Hours) Vital Signs Temp Pulse Resp BP Pulse Ox O2 Del Method 11/10/23 08:14 36.9 C 77 17 130/85 97 Room Air Laboratory Results Abnormal lab results 11/09/23 11/10/23 Range/Units 14:35 06:04 WBC 11.70 H (4.8-10.8) K/ul Neut # (Auto) 9.90 H (1.40-6.50) K/uL Lymph # (Auto) 0.99 L (1.20-3.40) K/uL George # (Auto) 0.76 H (0.11-0.59) K/uL BUN 30 H (6-23) mg/dl Creatinine 1.46 H (0.6-1.4) mg/dl BUN/Creatinine Ratio 20.5 H (10-20) Glucose 132 H (70-99(Fasting)) mg/dl Ur Specific [place] > 1.045 H (1.000-1.030) Urine Protein 1+ H (Negative) Urine Ketones Trace H (Negative) U Hyaline Cast (Auto) 3-5 H (0-2) /lpf PG Care Time/CCT Total # of Minutes Spent Total Time Spent with Patient: Total time spent is greater than 50% in coordination of care (as documented) at patient's floor/unit and/or counseling patient: Coding Level of Care Code 32485 SUB INP/OBS CARE 2/35MIN Diagnoses Back pain M54.9 Neck pain M54.2 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
[2023-11-10] MEDS: MoRPHine SULFATE 2 MG/ML CARP IV STA (14:27)
[2023-11-11] MEDS: MoRPHine SULFATE 2 MG/ML CARP IV PRN (00:35)
[2023-11-11 07:08] LABS: Basophils # (auto) 0.01 K/uL (0.00-0.20); Basophils % (auto) 0.1 %; Eosinophils # (auto) 0.02 K/uL (0.00-0.50); Eosinophils % (auto) 0.2 %; Hematocrit (blood only) 39.9 % (42.0-52.0); Hemoglobin 13.7 g/dl (14.0-18.0); Immature Granulocytes # (auto) 0.05 K/uL (0.01-0.20); Immature Granulocytes % (auto) 0.4 %; Lymphocytes # (auto) 1.12 K/uL (1.20-3.40); Lymphocytes % (auto) 9.4 %; Mean Corpuscular Hemoglobin 29.7 pg (25.0-34.0); Mean Corpuscular Hgb Conc 34.3 g/dL (32.0-36.0); Mean Corpuscular Volume 86.6 fL (80.0-100.0); Monocytes # (auto) 1.13 K/uL (0.11-0.59); Monocytes % (auto) 9.5 %; Neutrophils # (auto) 9.55 K/uL (1.40-6.50); Neutrophils % (auto) 80.4 %; Platelet Count 115 K/uL (130-400); RDW Coefficient of Variation 14.2 % (11.5-14.5); RDW Standard Deviation 43.9 fL (36.4-46.3); Red Blood Count 4.61 M/uL (4.70-6.10); White Blood Count 11.88 K/ul (4.8-10.8)
[2023-11-11 07:36] LABS: Calcium 8.9 mg/dl (8.6-10.3)
[2023-11-11 07:41] LABS: BUN Creatinine Ratio 26.4 (10-20); Creatinine Clr Calc Pharmacy 31.2 ml/min; Est GFR (African American) 46.2 ml/min; Est GFR (Non-African American) 39.8 ml/min
--- NOTE | 2023-11-11 13:56 | Orthopedic Consultation ---
Date of Consultation November 11, 2023 Assessment & Plan (1) Back pain: At this time awaiting completion of an MRI lumbar spine. I included AP pelvis and x-rays of the right hip. Make further recommendations upon review of imaging. History of Present Illness Reason for Consultation: Back and right leg pain Attending Physician: Janice Amezquita MD History of Present Illness Is a very pleasant 82-year-old male known to me the presents with decline in status for the past several days. He is complaining of pain in the lumbosacral spine rating into the right buttock and right groin. Seems to radiate down the anterior right thigh. Left lower extremity is asymptomatic. He denies any specific trauma fall or event that precipitated the symptoms. Allergies Allergy/AdvReac Type Severity Reaction Status Date / Time hydrochlorothiazide Allergy Severe Rash Verified 11/09/23 12:15 doxazosin Allergy Intermediate RASH, Verified 11/09/23 12:15 ITCHING oxaprozin Allergy Intermediate RASH, Verified 11/09/23 12:15 ITCHING mycophenolate mofetil AdvReac Severe "MAKES ME Verified 11/09/23 12:15 [From CellCept] EXTREMELY ILL" terazosin AdvReac Intermediate nervousness Verified 11/09/23 12:15 Home Medications Medication Instructions Recorded Confirmed Type multivitamin (Multiple Vitamins 1 tab PO QAM 03/21/18 11/09/23 History tablet) cholecalciferol (vitamin D3) 25 1,000 unit PO QAM 08/05/18 11/09/23 History mcg (1,000 unit) tablet pyridoxine (vitamin B6) 50 mg 50 mg PO QAM 08/05/18 11/09/23 History tablet atorvastatin 40 mg tablet 40 mg PO QAM 04/03/20 11/09/23 History diphenhydramine 12.5 12.5 tab PO PM PRN Sleep 11/27/20 11/09/23 History mg-acetaminophen 325 mg tablet losartan 100 mg tablet 100 mg PO QAM 11/27/20 11/09/23 History nitroglycerin 0.4 mg sublingual 0.4 mg sublingual Q5M PRN Chest 11/27/20 11/09/23 History tablet Pain finasteride 5 mg tablet 5 mg PO QAM #90 tabs 10/14/22 11/09/23 Rx calcium carbonate 500 mg PO QAM 05/15/23 11/09/23 History lidocaine 5 % topical patch 1 patch topical DAILY PRN pain #15 05/15/23 11/09/23 Rx ea omeprazole 40 mg capsule,delayed 40 mg PO QAM 05/26/23 11/09/23 History release oxybutynin chloride 5 mg tablet 5 mg PO Q8H PRN bladder spasms #30 05/30/23 11/09/23 Rx tabs diclofenac sodium 1 % topical gel 1 ea topical QID PRN Pain 06/15/23 11/09/23 History oxycodone 5 mg tablet 5 mg PO Q6H PRN pain #15 tabs 06/15/23 11/09/23 Rx propranolol 20 mg tablet 20 mg PO BID #180 tabs 10/12/23 11/09/23 Rx amlodipine 5 mg tablet 5 mg PO DAILY 11/09/23 11/09/23 History Patient History Medical History Elevated troponin Leukopenia Thrombocytopenia Hypomagnesemia Bright red blood per rectum Osteoarthritis 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 Nephrolithiasis Essential tremor Hands Anemia Hiatal hernia Ankylosing spondylitis Remotely diagnosed Chronic, constant back pain History of basal cell carcinoma Surgical History Status post placement of cardiac pacemaker History of basal cell carcinoma (BCC) excision History of back surgery x 4 History of left shoulder replacement History of right shoulder replacement History of esophagogastroduodenoscopy (EGD) History of colonoscopy Family History Mother , Mother age 99 with hypertension and arthritis Osteoarthritis Cancer Hypertension Father , Father age 48 of an ND. Myocardial infarction Other Family history non-contributory No family history of adverse response to anesthesia No family history of allergies No family history of bleeding disorder Denies family history of Hearing loss Heart disease Stroke Asthma Social History Smoking Status: Never smoker Second Hand Exposure: Yes ( smoked for 35 years per patient); Do You Dip or Chew Tobacco: No; Hx Alcohol Use: No Hx Substance Use: No Preferred Language: Hungarian Communication Ability: Effective Visual Impairment: No Limitations Roll Or Tape Edge Machine Operator Required: No Beliefs That Will Affect Care: None marital status: Current Living Situation: Family Current Living Situation Comment: Lives at home with daughter. 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 Feels Safe at Home: Yes Assistive Devices: None Physical Exam Physical Exam: On exam he is neurologically intact detailed testing bilateral extremities. Is a markedly positive logroll on the right negative on the left. Sensory is intact. Results & Data Vital Signs (Past 12 Hours) Vital Signs Temp Pulse Resp BP Pulse Ox O2 Del Method 11/11/23 12:49 36.8 C 70 16 128/74 94 Room Air 11/11/23 07:49 36.9 C 72 18 132/74 93 Room Air
--- NOTE | 2023-11-11 15:56 | Hospitalist Progress Note ---
Date of Service November 11, 2023 Assessment & Plan (1) Back pain: Plan: Presented to the ED this a.m. with multiple complaints including worsening chronic lumbar back pain, neck pain, and lightheadedness/diaphoresis after standing Has remained stable, labs are unremarkable CT of the abdomen pelvis with IV contrast is negative for acute trauma or changes in the surgical site, did note extensive occlusive deep vein thrombi in the IVC, bilateral iliac vein and visualized bilateral femoral veins Patient notes some heaviness in the bilateral lower extremities since pain has increased last night but has been able to ambulate safely since arrival, denies red flag symptoms and has nonfocal neurologic exam Suspect that his pain related to his chronic lumbar back pain/musculoskeletal pain Continue every 6 hours Tylenol, continue his home 5 mg p.o. oxycodone every 4 hours as needed pain 5-7 Continue 10 mg p.o. oxycodone every 4 hours as needed pain 8+ for now Added morphine 1 mg IV as needed [facility] consulted MRI has been canceled because of the issues he had today with his pacemaker. [facility] has been informed that the MRIs been canceled. 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 (2) Neck pain: Plan: Patient is experiencing ongoing at the site of his radio Frequency Ablation Right C2,C3,C4 medial branches on 11/03/2023 with pain management No new neurological findings, it was explained to he and his family that pain can get worse prior to improving in approximately 30 days status post the procedure We will continue with pain management as per back pain plan If current regimen is unsuccessful could consider pain management consult prior to discharge (3) 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 They recommended anticoagulation. However the patient declines anticoagulation because of recent past history. Encouraged ambulation (4) HTN (hypertension): Plan: Currently stable Continue amlodipine and losartan (5) BPH (benign prostatic hyperplasia): Plan: Continue finasteride Will follow-up with [facility] when results are available Admission and Anticipated Discharge Date Admission Date: November 09, 2023 Subjective A CODE HARI was called. Patient was at MRI. When his pacemaker was set to safe mode for the purpose of MRI, he became lightheaded, diaphoretic. His pacemaker were reset back to previous settings. Patient started feeling better. He never lost his pulse. MRI was canceled. Blood pressure and pulse returned to usual normal I went to see the patient in his room a few hours later. He continues to do well. Review of Systems 2 Review of Systems: All systems reviewed & are unremarkable except as noted in Subjective Physical Exam Physical Exam: General: Awake, conversant Heart: S1, S2/regular rate and rhythm, no murmur rubs or gallops Lungs: Clear to auscultation bilaterally. Normal effort Abdomen: Soft/nontender/nondistended. No hepatosplenomegaly Extremities: No clubbing/cyanosis. 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
--- NOTE | 2023-11-11 16:36 | XRay Report ---
XR hip RT 2V w pelvis CLINICAL HISTORY: hip pain TECHNIQUE: 2 views of the right hip and single frontal view of the pelvis were obtained. Comparison: Comparison is made to hip radiograph 03/15/2023 FINDINGS: There is no evidence of an acute fracture. Degenerative changes are seen in the hip joint. Posterior fixation hardware in the lumbar spine and left orthopedic fixation hardware is seen. Vascular calcifi cations are noted. IMPRESSION: No evidence of acute osseous injury. ACT 112: Negative or not required by law. Electronically signed by: Asael Rodríguez M.D. 11/11/2023 4:35 PM
[2023-11-11] MEDS: LACTATED RINGER'S 500 ML IV ONE ×2 (20:25→23:05)
[2023-11-12] MEDS: FAMOTIDINE 20 MG TAB PO ONE (06:37)
[2023-11-12 06:50] LABS: Basophils # (auto) 0.01 K/uL (0.00-0.20); Basophils % (auto) 0.1 %; Eosinophils # (auto) 0.07 K/uL (0.00-0.50); Eosinophils % (auto) 0.6 %; Hematocrit (blood only) 44.6 % (42.0-52.0); Hemoglobin 14.9 g/dl (14.0-18.0); Immature Granulocytes # (auto) 0.05 K/uL (0.01-0.20); Immature Granulocytes % (auto) 0.4 %; Lymphocytes # (auto) 0.99 K/uL (1.20-3.40); Lymphocytes % (auto) 8.4 %; Mean Corpuscular Hemoglobin 29.7 pg (25.0-34.0); Mean Corpuscular Hgb Conc 33.4 g/dL (32.0-36.0); Mean Corpuscular Volume 88.8 fL (80.0-100.0); Mean Platelet Volume 10.8 fL (9.4-12.4); Monocytes % (auto) 9.3 %; Neutrophils # (auto) 9.61 K/uL (1.40-6.50); Neutrophils % (auto) 81.2 %; Platelet Count 108 K/uL (130-400); RDW Coefficient of Variation 14.3 % (11.5-14.5); RDW Standard Deviation 45.7 fL (36.4-46.3); Red Blood Count 5.02 M/uL (4.70-6.10); White Blood Count 11.83 K/ul (4.8-10.8)
[2023-11-12 07:34] LABS: BUN Creatinine Ratio 25.4 (10-20); Calcium 9.3 mg/dl (8.6-10.3); Creatinine Clr Calc Pharmacy 23.7 ml/min; Est GFR (African American) 33.2 ml/min; Est GFR (Non-African American) 28.6 ml/min; Potassium 4.1 mmol/L (3.5-5.1)
--- NOTE | 2023-11-12 09:43 | Orthopedic Progress Note ---
Date of Service November 12, 2023 Assessment & Plan (1) Back pain: Plan: I would like to obtain a CAT scan of the pelvis with attention to the right hip and right SI joint. Pending these results we may consider consultation with interventional pain management. Admission and Anticipated Discharge Date Admission Date: November 09, 2023 Subjective Patient continues to have right-sided buttock and groin pain. Unfortunately was unable to obtain an MRI yesterday secondary to his pacemaker. This morning he states his symptoms are still quite limiting. Physical Exam Physical Exam: On exam is able to sit up in bed with some modest assistance. He does demonstrate significant tenderness palpation over the right SI joint compared to the left. He continues to have a positive logroll. Results & Data Vital Signs (Past 12 Hours) Vital Signs Temp Pulse Resp BP Pulse Ox O2 Del Method 11/12/23 08:00 Room Air 11/12/23 07:33 37.1 C 83 14 101/70 94 Room Air 11/11/23 23:38 80 90/54 L 11/11/23 22:26 90/61 L
--- NOTE | 2023-11-12 10:58 | CT Scan Report ---
CT SCAN OF THE PELVIS WITHOUT IV CONTRAST CLINICAL HISTORY: Right hip and sacroiliac joint pain. COMPARISON STUDY: Radiographs of the right hip and pelvis dated 11/11/2023. Pelvic CT dated 11/09/2023. TECHNIQUE: CT scan of the pelvis is performed from the pelvic inlet to the proximal femora. Images ar e reviewed in the axial, sagittal, and coronal planes. IV contrast was not administered for this exam ination. A dose lowering technique was utilized adhering to the principles of ALARA. The examination is degraded by streak artifact from a left hip arthroplasty. CT DOSE: 657.86 mGy.cm FINDINGS: The skeletal structures are osteopenic. There is no evidence of acute fracture involving th e hips or bony pelvis. A left hip arthroplasty is in place. Oalq-mg-bvqerksk arthritic change and dusty nt space narrowing is seen in the right hip. There is degenerative sclerosis of the sacroiliac joints . Postsurgical and spondylotic change is seen at the lumbosacral junction. No lytic or blastic lesion is identified. There is asymmetric soft tissue edema and subcutaneous fluid in the right thigh. No h ematoma is seen. The IVC and iliac veins are distended and filled with hyperdense material, likely re presenting extensive deep venous thrombosis. There is soft tissue stranding and trace fluid around th e IVC and iliac vessels. This was better shown on the 11/09/2023 contrast-enhanced examination. The pr ostate gland is enlarged and heterogeneous. The bladder wall is thickened/trabeculated indicating chr onic outlet obstruction. An 11 mm bladder diverticulum is seen posteriorly on the left. The bladder i s filled with excreted IV contrast. There is no pelvic sidewall or inguinal lymphadenopathy. Imaged p ortions of the bowel show no evidence of obstruction. IMPRESSION: 1. No acute bony abnormality is seen involving the hips or pelvis. 2. The IVC and iliac vessels are distended with hyperdense material and there is surrounding infiltra tion. This is consistent with extensive deep venous thrombosis, and was also seen on the 11/09/2023 co ntrast-enhanced examination. 3. There is asymmetric soft tissue edema and subcutaneous fluid in the right thigh as compared to the left. This may be related to deep venous thrombosis. Clinical correlation will be required. 4. Additional findings as above. ACT 112: Negative or not required by law. Dictated: 11/12/2023 10:14 AM Transcribed: 11/12/2023 10:44 AM Tanvir [id number] [email or web address] [id number] Electronically signed by: Elia Thompson M.D. 11/12/2023 10:57 AM
[2023-11-12] MEDS: CYCLOBENZAPRINE HCL 5 MG TAB PO SCH (13:05)
--- NOTE | 2023-11-12 15:06 | Hospitalist Progress Note ---
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 They recommended anticoagulation. However the patient declines anticoagulation because of recent past history. I spoke to vascular surgery on at [facility], Dr. Torres, who reiterated the need for anticoagulation and also Raghu bandage of both legs and elevation -Patient has refused anticoagulation given his recent retroperitoneal hemorrhage -According To Dr. Torres, patient is not a candidate for thrombolysis (2) Back pain: Plan: Presented to the ED this a.m. with multiple complaints including worsening chronic lumbar back pain, neck pain, and lightheadedness/diaphoresis after standing Has remained stable, labs are unremarkable CT of the abdomen pelvis with IV contrast is negative for acute trauma or changes in the surgical site, did note extensive occlusive deep vein thrombi in the IVC, bilateral iliac vein and visualized bilateral femoral veins Patient notes some heaviness in the bilateral lower extremities since pain has increased last night but has been able to ambulate safely since arrival, denies red flag symptoms and has nonfocal neurologic exam Suspect that his pain related to his chronic lumbar back pain/musculoskeletal pain [facility] consulted MRI has been canceled because of the issues he had with his pacemaker. [facility] has been informed that the MRIs been canceled. -CT pelvis has been ordered, shows asymmetric soft tissue edema subcutaneous fluid right thigh compared to the left Appreciate spine surgery recommendations (3) Neck pain: Plan: Patient is experiencing ongoing at the site of his radio Frequency Ablation Right C2,C3,C4 medial branches on 11/03/2023 with pain management No new neurological findings, it was explained to he and his family that pain can get worse prior to improving in approximately 30 days status post the procedure We will continue with pain management as per back pain plan If current regimen is unsuccessful could consider pain management consult prior to discharge (4) HTN (hypertension): Plan: Currently stable Continue amlodipine and losartan (5) BPH (benign prostatic hyperplasia): Plan: Continue finasteride Will follow-up with [facility] when results are available Plan Continue to monitor in the hospital, awaiting final recommendations from [facility] surgery Admission and Anticipated Discharge Date Admission Date: November 09, 2023 Subjective Patient seen and examined, complained of worsening leg pains and also swelling but still reluctant to take anticoagulation as suggested by vascular surgery and interventional radiology Review of Systems Review of Systems: All systems reviewed are negative, apart from the ones contained in the history. Physical Exam Physical Exam: The patient is awake, alert and oriented 3, well developed and well nourished, normocephalic and atraumatic, lying in bed and in no acute distress. HEENT--PERRL, EOMI, mucous membranes and oropharynx mildly dry Neck--supple. No JVD. No bruits. Thyroid normal, trachea midline, no adenopathy. Heart--normal S1 and S2. No murmurs, rubs or gallops. Lungs--clear bilaterally, no respiratory distress, no accessory muscle use. Abdomen--normal bowel sounds and soft. Extremities--Bilateral lower extremity edema Dermatologic--normal skin turgor, normal color, no abnormal lymph nodes, no rash. Neurologic--cranial nerves II through XII grossly intact. Rheumatologic--normal range of motion. Psychiatric--normal affect. 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
[2023-11-12] MEDS: FUROSEMIDE 40 MG/4 ML VIAL IV ONE (16:48)
--- NOTE | 2023-11-12 19:14 | Ultrasound Report ---
ULTRASOUND BILATERAL LOWER EXTREMITY ARTERIAL; ANKLE-BRACHIAL INDICES CLINICAL HISTORY: Limb ischemia. COMPARISON STUDY: No priors. TECHNIQUE: Real-time grayscale and color Doppler sonography of the arteries of the right and left low er extremities performed from the inguinal crease to the foot. Ankle-brachial indices were assessed. FINDINGS: Ankle-brachial indices: Right brachial pressure measures 122. Pressures in the right dorsalis pedis p ressure 161 for an TYLER of 1.32 and pressures in the left dorsalis pedis pressure 145 for an TYLER of 1. 19. The posterior tibial artery was not compressible in either leg. Right lower extremity: Atherosclerotic plaque and irregularity is seen throughout the arteries of the right lower extremity. There are triphasic waveforms in the common femoral artery with velocities me asuring up to 68 cm/sec. The profunda femoris artery is patent with velocities measuring up to 68 cm/ sec. There are triphasic waveforms throughout the superficial femoral and popliteal arteries. Velocit ies in the femoral artery measure up to 79 cm/sec and velocities in the popliteal artery measure up t o 39 cm/sec. There is three-vessel run off to the foot. Velocities within the calf arteries measure u p to 50 cm/sec. The dorsalis pedis artery is patent with velocities measuring up to 25 cm/sec. Left lower extremity: Atherosclerotic plaque and irregularity is seen throughout the arteries of the left lower extremity. There are triphasic waveforms in the common femoral artery with velocities jay uring up to 56 cm/sec. The profunda femoris artery is patent with velocities measuring up to 51 cm/se c. There are triphasic arterial waveforms throughout the superficial femoral and popliteal arteries. Velocities in the superficial femoral artery measure up to 85 cm/sec and velocities in the popliteal artery measure up to 57 cm/sec. There is three-vessel runoff to the foot. Velocities in the calf yoni luke measure up to 81 cm/sec. The dorsalis pedis artery is patent with velocities measuring up to 48 cm/sec. Deep veins: Extensive deep venous thrombosis is seen in both legs. IMPRESSION: 1. There is no sonographic evidence of high-grade stenosis or focal vessel cut off throughout the art eries of the right or left lower extremity. 2. Extensive bilateral deep venous thrombosis is noted. Dictated: 11/12/2023 6:17 PM Transcribed: 11/12/2023 6:39 PM [email or web address] [id number] [email or web address] Electronically signed by: Elia Thompson M.D. 11/12/2023 7:13 PM
[2023-11-12] MEDS: MoRPHine SULFATE 2 MG/ML CARP IV PRN (19:44)
[2023-11-13 08:17] LABS: Hematocrit (blood only) 41.6 % (42.0-52.0); Hemoglobin 13.7 g/dl (14.0-18.0); Mean Corpuscular Hemoglobin 29.7 pg (25.0-34.0); Mean Corpuscular Hgb Conc 32.9 g/dL (32.0-36.0); Mean Corpuscular Volume 90.2 fL (80.0-100.0); Mean Platelet Volume 10.7 fL (9.4-12.4); Platelet Count 102 K/uL (130-400); RDW Coefficient of Variation 14.5 % (11.5-14.5); RDW Standard Deviation 47.5 fL (36.4-46.3); Red Blood Count 4.61 M/uL (4.70-6.10)
[2023-11-13 08:38] LABS: BUN Creatinine Ratio 29.9 (10-20); Calcium 8.9 mg/dl (8.6-10.3); Creatinine Clr Calc Pharmacy 23.2 ml/min; Est GFR (African American) 32.2 ml/min; Est GFR (Non-African American) 27.8 ml/min
[2023-11-13] MEDS ORDERED: Heparin IV Adult Wt-Based Standard *NO* INITIAL Bolus Protocol IV STA (08:39)
[2023-11-13] MEDS ORDERED: HEPARIN SODIUM/DEXTROSE 25,000 UNITS/500 ML BAG IV SCH (09:00)
[2023-11-13] MEDS: HEPARIN SOD (PORCINE) 1000 UNIT/ML IV ONE (09:31)
[2023-11-13] MEDS: HEPARIN SODIUM/DEXTROSE 25,000 UNITS/500 ML BAG IV SCH (09:31)
[2023-11-13] MEDS: Heparin IV Adult Wt-Based Standard w/ INITIAL Bolus Protocol IV STA (09:31)
[2023-11-13 09:46] LABS: Partial Thromboplastin Time 26 Seconds (21-31); Prothrombin Time 10.6 Seconds (9.0-12.0)
--- NOTE | 2023-11-13 13:23 | Hospitalist Progress Note ---
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 They recommended anticoagulation. I spoke to vascular surgery on at , Dr. Torres, who reiterated the need for anticoagulation and also Raghu bandage of both legs and elevation -Patient initially was reluctant given his recent retroperitoneal hemorrhage, After discussing with his daughter patient was agreeable to anticoagulation. The risk benefits were also explained to him -Will start him on heparin by weight. -According To Dr. Torres, patient is not a candidate for thrombolysis (2) Back pain: Plan: Presented to the ED this a.m. with multiple complaints including worsening chronic lumbar back pain, neck pain, and lightheadedness/diaphoresis after standing Has remained stable, labs are unremarkable CT of the abdomen pelvis with IV contrast is negative for acute trauma or changes in the surgical site, did note extensive occlusive deep vein thrombi in the IVC, bilateral iliac vein and visualized bilateral femoral veins Patient notes some heaviness in the bilateral lower extremities since pain has increased last night but has been able to ambulate safely since arrival, denies red flag symptoms and has nonfocal neurologic exam Suspect that his pain related to his chronic lumbar back pain/musculoskeletal pain [facility] consulted MRI has been canceled because of the issues he had with his pacemaker. [facility] has been informed that the MRIs been canceled. -CT pelvis has been ordered, shows asymmetric soft tissue edema subcutaneous fluid right thigh compared to the left Appreciate spine surgery recommendations (3) Neck pain: Plan: Patient is experiencing ongoing at the site of his radio Frequency Ablation Right C2,C3,C4 medial branches on 11/03/2023 with pain management No new neurological findings, it was explained to he and his family that pain can get worse prior to improving in approximately 30 days status post the procedure We will continue with pain management as per back pain plan If current regimen is unsuccessful could consider pain management consult prior to discharge (4) HTN (hypertension): Plan: Currently stable Continue amlodipine and losartan (5) BPH (benign prostatic hyperplasia): Plan: Continue finasteride Will follow-up with [facility] when results are available Plan Continue to monitor in the hospital, awaiting final recommendations from [facility] surgery Admission and Anticipated Discharge Date Admission Date: November 09, 2023 Subjective Patient seen and examined, Sitting up in the chair, states his pain is now more tolerable. Patient now willing to go ahead with anticoagulation with heparin after discussing with daughter Review of Systems Review of Systems: All systems reviewed are negative, apart from the ones contained in the history. Physical Exam Physical Exam: The patient is awake, alert and oriented 3, well developed and well nourished, normocephalic and atraumatic, lying in bed and in no acute distress. HEENT--PERRL, EOMI, mucous membranes and oropharynx mildly dry Neck--supple. No JVD. No bruits. Thyroid normal, trachea midline, no adenopathy. Heart--normal S1 and S2. No murmurs, rubs or gallops. Lungs--clear bilaterally, no respiratory distress, no accessory muscle use. Abdomen--normal bowel sounds and soft. Extremities--Bilateral lower extremity edema Dermatologic--normal skin turgor, normal color, no abnormal lymph nodes, no rash. Neurologic--cranial nerves II through XII grossly intact. Rheumatologic--normal range of motion. Psychiatric--normal affect. 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
[2023-11-13 16:40] LABS: ANTI-Xa, UFH(UnfractionatedHep > 1.50 IU/ml (0.3-0.7)
[2023-11-13 18:49] LABS: ANTI-Xa, UFH(UnfractionatedHep 1.06 IU/ml (0.3-0.7)
[2023-11-14 03:17] LABS: ANTI-Xa, UFH(UnfractionatedHep 0.76 IU/ml (0.3-0.7)
[2023-11-14 09:44] LABS: Hematocrit (blood only) 38.7 % (42.0-52.0); Hemoglobin 12.7 g/dl (14.0-18.0); Mean Corpuscular Hemoglobin 29.7 pg (25.0-34.0); Mean Corpuscular Hgb Conc 32.8 g/dL (32.0-36.0); Mean Corpuscular Volume 90.4 fL (80.0-100.0); Mean Platelet Volume 10.5 fL (9.4-12.4); Platelet Count 134 K/uL (130-400); RDW Coefficient of Variation 14.5 % (11.5-14.5); RDW Standard Deviation 47.5 fL (36.4-46.3); Red Blood Count 4.28 M/uL (4.70-6.10); White Blood Count 13.65 K/ul (4.8-10.8)
[2023-11-14 10:06] LABS: BUN Creatinine Ratio 31.5 (10-20); Calcium 8.8 mg/dl (8.6-10.3); Creatinine Clr Calc Pharmacy 22.6 ml/min; Est GFR (African American) 31.3 ml/min; Potassium 3.9 mmol/L (3.5-5.1)
[2023-11-14 10:31] LABS: ANTI-Xa, UFH(UnfractionatedHep 0.92 IU/ml (0.3-0.7)
--- NOTE | 2023-11-14 10:33 | Pain Management Consultation ---
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 No interventional pain mgt planned as patient has extensive DVT and is currently on heparin IV gtt. Feel that extensive clot burden and surrounding edema/subcut fluid in right thigh (due to DVT) likely the cause of his pain. Should his pain continue post-resolution of clot burden/soft tissue edema, can consider re-evaluation of options/initiate further workup as he does have degenerative changes noted within the right hip joint. For now, recommend utilization of PO opiates to mitigate pain (oxycodone already ordered). 2. Patient is already a patient within the [facility] pain mgt office. Would be happy to see him post discharge for follow-up. Pain service will sign off, please call with any questions. History of Present Illness Attending Physician: Brodie Lassiter MD History of Present Illness 82year old male with hx of IVC filter and resolved large retroperitoneal hemorrhage left iliopsoas presented to [facility] ER 11/09/23 with acute pain axial lumbar spine and right hip/thigh pain rated at 8/10 characterized as deep pressure aching. On CT imaging, extensive clot burden noted involving the IVC, bilateral iliac veins, and visualized bilateral femoral veins. He is currently on IV heparin gtt and pain is fairly controlled with PO oxycodone. He reports some mild-moderate relief s/p R C2-4 medial branch RFA performed on 11/03/23. He denies motor weakness/foot drop/saddle anesthesia/fever/chills. Pain Assessment [facility] Combined Pain Scale: 8-Debilitating - Impairs activity. Can't maintain a conversation. Allergies Allergy/AdvReac Type Severity Reaction Status Date / Time hydrochlorothiazide Allergy Severe Rash Verified 11/09/23 12:15 doxazosin Allergy Intermediate RASH, Verified 11/09/23 12:15 ITCHING oxaprozin Allergy Intermediate RASH, Verified 11/09/23 12:15 ITCHING mycophenolate mofetil AdvReac Severe "MAKES ME Verified 11/09/23 12:15 [From CellCept] EXTREMELY ILL" terazosin AdvReac Intermediate nervousness Verified 11/09/23 12:15 Home Medications Medication Instructions Recorded Confirmed Type multivitamin (Multiple Vitamins 1 tab PO QAM 03/21/18 11/09/23 History tablet) cholecalciferol (vitamin D3) 25 1,000 unit PO QAM 08/05/18 11/09/23 History mcg (1,000 unit) tablet pyridoxine (vitamin B6) 50 mg 50 mg PO QAM 08/05/18 11/09/23 History tablet atorvastatin 40 mg tablet 40 mg PO QAM 04/03/20 11/09/23 History diphenhydramine 12.5 12.5 tab PO PM PRN Sleep 11/27/20 11/09/23 History mg-acetaminophen 325 mg tablet losartan 100 mg tablet 100 mg PO QAM 11/27/20 11/09/23 History nitroglycerin 0.4 mg sublingual 0.4 mg sublingual Q5M PRN Chest 11/27/20 11/09/23 History tablet Pain finasteride 5 mg tablet 5 mg PO QAM #90 tabs 10/14/22 11/09/23 Rx calcium carbonate 500 mg PO QAM 05/15/23 11/09/23 History lidocaine 5 % topical patch 1 patch topical DAILY PRN pain #15 05/15/23 11/09/23 Rx ea omeprazole 40 mg capsule,delayed 40 mg PO QAM 05/26/23 11/09/23 History release oxybutynin chloride 5 mg tablet 5 mg PO Q8H PRN bladder spasms #30 05/30/23 11/09/23 Rx tabs diclofenac sodium 1 % topical gel 1 ea topical QID PRN Pain 06/15/23 11/09/23 History oxycodone 5 mg tablet 5 mg PO Q6H PRN pain #15 tabs 06/15/23 11/09/23 Rx propranolol 20 mg tablet 20 mg PO BID #180 tabs 10/12/23 11/09/23 Rx amlodipine 5 mg tablet 5 mg PO DAILY 11/09/23 11/09/23 History Patient History Medical History Elevated troponin Leukopenia Thrombocytopenia Hypomagnesemia Bright red blood per rectum Osteoarthritis 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 Feels Safe at Home: Yes Assistive Devices: None Physical Exam Constitutional: WD/WN, vitals as above well developed and well nourished; no acute distress Eyes: PERRL, conjunctivae normal, anicteric sclerae ENMT: external ear and nose normal, oropharynx normal Neck: normal visual inspection Respiratory: normal respiratory effort; no respiratory distress Cardiovascular: Rate/Rhythm: regular rate and regular rhythm Gastrointestinal (Abdomen): Inspection/Auscultation: abdomen normal to inspection Musculoskeletal: no cyanosis or clubbing, extremities motor strength 5/5 Skin: no rashes, warm and dry Psychiatric: A+Ox3, euthymic affect Results (Pain Clinic) Diagnostic Review CT Findings: 11/12/23 CT SCAN OF THE PELVIS WITHOUT IV CONTRAST CLINICAL HISTORY: Right hip and sacroiliac joint pain. COMPARISON STUDY: Radiographs of the right hip and pelvis dated 11/11/2023. Pelvic CT dated 11/09/2023. TECHNIQUE: CT scan of the pelvis is performed from the pelvic inlet to the proximal femora. Images are reviewed in the axial, sagittal, and coronal planes. IV contrast was not administered for this examination. A dose lowering technique was utilized adhering to the principles of ALARA. The examination is degraded by streak artifact from a left hip arthroplasty. CT DOSE: 657.86 mGy.cm FINDINGS: The skeletal structures are osteopenic. There is no evidence of acute fracture involving the hips or bony pelvis. A left hip arthroplasty is in place. [id number] arthritic change and joint space narrowing is seen in the right hip. There is degenerative sclerosis of the sacroiliac joints. Postsurgical and spondylotic change is seen at the lumbosacral junction. No lytic or blastic lesion is identified. There is asymmetric soft tissue edema and subcutaneous fluid in the right thigh. No hematoma is seen. The IVC and iliac veins are distended and filled with hyperdense material, likely representing extensive deep venous thrombosis. There is soft tissue stranding and trace fluid around the IVC and iliac vessels. This was better shown on the 11/09/2023 contrast- enhanced examination. The prostate gland is enlarged and heterogeneous. The bladder wall is thickened/trabeculated indicating chronic outlet obstruction. An 11 mm bladder diverticulum is seen posteriorly on the left. The bladder is filled with excreted IV contrast. There is no pelvic sidewall or inguinal lymphadenopathy. Imaged portions of the bowel show no evidence of obstruction. IMPRESSION: 1. No acute bony abnormality is seen involving the hips or pelvis. 2. The IVC and iliac vessels are distended with hyperdense material and there is surrounding infiltration. This is consistent with extensive deep venous thro mbosis, and was also seen on the 11/09/2023 contrast-enhanced examination. 3. There is asymmetric soft tissue edema and subcutaneous fluid in the right thigh as compared to the left. This may be related to deep venous thrombosis. Clinical correlation will be required. 4. Additional findings as above. 11/09/[address] WITH IV CONTRAST CT DOSE: 849.62 mGy.cm HISTORY: low T and up L spine pain; h/o surgery/retro bleed TECHNIQUE: Multiaxial CT images of the abdomen and pelvis were performed following the use of intravenous contrast. A dose lowering technique was utilized adhering to the principles of ALARA. COMPARISON STUDY: Abdomen and pelvis CT 08/14/2023. FINDINGS: Mild dependent changes seen within the lung bases. 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 No pneumoperitoneum. No pneumatosis. There is a left hip prosthesis. Posterior decompression from L2 through S1 with posterior fusion hardware from L2 through L5. No acute fractures. The left psoas intramuscular hematoma appears to have resolved in the interval. There is a 4 mm stone versus polyp within the gallbladder fundus. The liver, pancreas, spleen, and right adrenal gland unremarkable. Stable 2 cm left adrenal adenoma. The main portal vein is patent. Normal caliber abdominal aorta. No retroperitoneal lymphadenopathy. A few bilateral renal hypodense lesions are again noted. These favor cysts. There are few small bilateral renal calculi. No ureteral calculi. No hydronephrosis. No pelvic lymphadenopathy. Trace pelvic free fluid. The prostate gland remains enlarged. There is diffuse bladder wall thickening with a a few small bladder diverticula. This is likely due to chronic outlet obstruction from the enlarged prostate gland. Colonic diverticulosis. No evidence for acute diverticulitis. No bowel wall thickening or obstruction. Moderate fecal retention. Normal appendix. Interval placement of an IVC filter. There is extensive thrombus throughout the majority of the infrarenal IVC including thrombus just superior to the IVC filter. There is extensive thrombus surrounding the IVC filter and inferior to the IVC filter which extends throughout the bilateral common iliac, internal iliac, external iliac, and visualized femoral veins. The thrombus is essentially occlusive. IMPRESSION: 1. Extensive occlusive deep vein thrombosis involving the IVC, bilateral iliac veins, and visualized bilateral femoral veins. 2. The left psoas intramuscular hematoma has resolved in the interval. 3. No bowel wall thickening or obstruction. 4. Bladder wall thickening. This is likely due to chronic outlet obstruction. 5. Bilaterally nephrolithiasis. No hydronephrosis. 6. A 4 mm stone versus polyp within the gallbladder fundus. 7. Additional findings as described above. Radiology Findings: 11/12/23 BL LE DOPPLER MPRESSION: 1. There is no sonographic evidence of high-grade stenosis or focal vessel cut off throughout the arteries of the right or left lower extremity. 2. Extensive bilateral deep venous thrombosis is noted. Other Findings: 11/11/23 XR hip RT 2V w pelvis CLINICAL HISTORY: hip pain TECHNIQUE: 2 views of the right hip and single frontal view of the pelvis were obtained. Comparison: Comparison is made to hip radiograph 03/15/2023 FINDINGS: There is no evidence of an acute fracture. Degenerative changes are seen in the hip joint. Posterior fixation hardware in the lumbar spine and left orthopedic fixation hardware is seen. Vascular calcifications are noted. Previous Records Review Previous Records: personally reviewed by me
[2023-11-14] MEDS: POLYETHYLENE (MIRALAX) 17 GM PACK PO SCH (11:07)
--- NOTE | 2023-11-14 14:30 | Hospitalist Progress Note ---
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 They recommended anticoagulation. I spoke to vascular surgery on at [facility], Dr. Torres, who reiterated the need for anticoagulation and also Raghu bandage of both legs and elevation -Patient initially was reluctant given his recent retroperitoneal hemorrhage, After discussing with his daughter patient was agreeable to anticoagulation. The risk benefits were also explained to him -Has been on heparin by weight -According To Dr. Torres, patient is not a candidate for thrombolysis -pain is tolerable today -Will await evaluation from our own vascular surgeon, hopefully tomorrow (2) Back pain: Plan: Presented to the ED this a.m. with multiple complaints including worsening chronic lumbar back pain, neck pain, and lightheadedness/diaphoresis after standing Has remained stable, labs are unremarkable CT of the abdomen pelvis with IV contrast is negative for acute trauma or changes in the surgical site, did note extensive occlusive deep vein thrombi in the IVC, bilateral iliac vein and visualized bilateral femoral veins Patient notes some heaviness in the bilateral lower extremities since pain has increased last night but has been able to ambulate safely since arrival, denies red flag symptoms and has nonfocal neurologic exam Suspect that his pain related to his chronic lumbar back pain/musculoskeletal pain [facility] consulted MRI was canceled because of the issues he had with his pacemaker. -CT pelvis has been ordered, shows asymmetric soft tissue edema subcutaneous fluid right thigh compared to the left Appreciate spine surgery recommendations. I doubt if any procedure would be planned for now given ongoing anticoagulation with heparin (3) Neck pain: Plan: Patient is experiencing ongoing at the site of his radio Frequency Ablation Right C2,C3,C4 medial branches on 11/03/2023 with pain management No new neurological findings, it was explained to he and his family that pain can get worse prior to improving in approximately 30 days status post the procedure We will continue with pain management as per back pain plan Pain mgt on board (4) HTN (hypertension): Plan: Currently stable Continue amlodipine and losartan (5) BPH (benign prostatic hyperplasia): Plan: Continue finasteride Will follow-up with [facility] when results are available Plan Continue to monitor in the hospital, hopefully d/c after final recs from vascular surgery Admission and Anticipated Discharge Date Admission Date: November 09, 2023 Subjective Patient seen and examined, Sitting up in the chair, states his pain is now more tolerable. Review of Systems Review of Systems: All systems reviewed are negative, apart from the ones contained in the history. Physical Exam Physical Exam: The patient is awake, alert and oriented 3, well developed and well nourished, normocephalic and atraumatic, lying in bed and in no acute distress. HEENT--PERRL, EOMI, mucous membranes and oropharynx mildly dry Neck--supple. No JVD. No bruits. Thyroid normal, trachea midline, no adenopathy. Heart--normal S1 and S2. No murmurs, rubs or gallops. Lungs--clear bilaterally, no respiratory distress, no accessory muscle use. Abdomen--normal bowel sounds and soft. Extremities--Bilateral lower extremity edema Dermatologic--normal skin turgor, normal color, no abnormal lymph nodes, no rash. Neurologic--cranial nerves II through XII grossly intact. Rheumatologic--normal range of motion. Psychiatric--normal affect. 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
[2023-11-15 08:36] LABS: Hematocrit (blood only) 38.7 % (42.0-52.0); Mean Corpuscular Hemoglobin 29.7 pg (25.0-34.0); Mean Corpuscular Hgb Conc 33.6 g/dL (32.0-36.0); Mean Corpuscular Volume 88.6 fL (80.0-100.0); Mean Platelet Volume 10.3 fL (9.4-12.4); Platelet Count 179 K/uL (130-400); RDW Coefficient of Variation 14.3 % (11.5-14.5); RDW Standard Deviation 46.3 fL (36.4-46.3); Red Blood Count 4.37 M/uL (4.70-6.10); White Blood Count 12.14 K/ul (4.8-10.8)
[2023-11-15 08:37] LABS: ANTI-Xa, UFH(UnfractionatedHep 0.51 IU/ml (0.3-0.7)
[2023-11-15 08:57] LABS: BUN Creatinine Ratio 33.8 (10-20); Calcium 8.9 mg/dl (8.6-10.3); Creatinine Clr Calc Pharmacy 23.9 ml/min; Est GFR (African American) 33.6 ml/min; Potassium 4.4 mmol/L (3.5-5.1)
--- NOTE | 2023-11-15 09:58 | Consultation ---
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 Would recommend anticoagulation, however, pt should be monitored closely for new bleeding, since his bleeding in July was felt to be due to a mechanical problem that has not changed. No indications or benefit for thrombolytics in this pt. Recommend elevation of BLE when possible and thigh high compression stockings to minimize sx. Will have pt fitted for thigh high compression. THis was all discussed with pt, he understands. Please call if needed. History of Present Illness Reason for Consultation: DVT, IVCF occlusion Attending Physician: Brodie Lassiter MD History of Present Illness 82 yo m with hx of multiple spinal sugeries, HTN, CKD, BPH, dyslipidemia, AV block, PE/DVT, admitted with back pain, seen in consultation today for DVT and occluded IVC filter. Pt was seen at [facility] in July 2023 for DVT/PE which may have been chronic and started on AC. Shortly thereafter, pt developed a large retroperitoneal bleed requiring multiple transfusions, felt to be due to a migrated lumbar spinal screw abutting his psoas muscle. Pt was [place] [facility] [place] after repeat venous US demonstrated acute DVT. Pt has not been on AC since July 2023. Recently had an ablation of his spine/nerves, and came to [facility] last week d/t some increased back pain. CT eval indicates occlusion of IVCF and extensive DVT. Heparin drip has been started cautiously d/t previous bleed. Pt admits some edema of BLE. Admits low back pain and chronic tingling/numbness/heaviness of his legs. Denies RIVERA, fever, chest pain, SOB, abd pain, N/V, rest pain, claudication, other complaints. Allergies Allergy/AdvReac Type Severity Reaction Status Date / Time hydrochlorothiazide Allergy Severe Rash Verified 11/09/23 12:15 doxazosin Allergy Intermediate RASH, Verified 11/09/23 12:15 ITCHING oxaprozin Allergy Intermediate RASH, Verified 11/09/23 12:15 ITCHING mycophenolate mofetil AdvReac Severe "MAKES ME Verified 11/09/23 12:15 [From CellCept] EXTREMELY ILL" terazosin AdvReac Intermediate nervousness Verified 11/09/23 12:15 Home Medications Medication Instructions Recorded Confirmed Type multivitamin (Multiple Vitamins 1 tab PO QAM 03/21/18 11/09/23 History tablet) cholecalciferol (vitamin D3) 25 1,000 unit PO QAM 08/05/18 11/09/23 History mcg (1,000 unit) tablet pyridoxine (vitamin B6) 50 mg 50 mg PO QAM 08/05/18 11/09/23 History tablet atorvastatin 40 mg tablet 40 mg PO QAM 04/03/20 11/09/23 History diphenhydramine 12.5 12.5 tab PO PM PRN Sleep 11/27/20 11/09/23 History mg-acetaminophen 325 mg tablet losartan 100 mg tablet 100 mg PO QAM 11/27/20 11/09/23 History nitroglycerin 0.4 mg sublingual 0.4 mg sublingual Q5M PRN Chest 11/27/20 11/09/23 History tablet Pain finasteride 5 mg tablet 5 mg PO QAM #90 tabs 10/14/22 11/09/23 Rx calcium carbonate 500 mg PO QAM 05/15/23 11/09/23 History lidocaine 5 % topical patch 1 patch topical DAILY PRN pain #15 05/15/23 11/09/23 Rx ea omeprazole 40 mg capsule,delayed 40 mg PO QAM 05/26/23 11/09/23 History release oxybutynin chloride 5 mg tablet 5 mg PO Q8H PRN bladder spasms #30 05/30/23 11/09/23 Rx tabs diclofenac sodium 1 % topical gel 1 ea topical QID PRN Pain 06/15/23 11/09/23 History oxycodone 5 mg tablet 5 mg PO Q6H PRN pain #15 tabs 06/15/23 11/09/23 Rx propranolol 20 mg tablet 20 mg PO BID #180 tabs 10/12/23 11/09/23 Rx amlodipine 5 mg tablet 5 mg PO DAILY 11/09/23 11/09/23 History Patient History Medical History Elevated troponin Leukopenia Thrombocytopenia Hypomagnesemia Bright red blood per rectum Osteoarthritis 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 Myocardial infarction Other Family history non-contributory No family history of adverse response to anesthesia No family history of allergies No family history of bleeding disorder Denies family history of Hearing loss Heart disease Stroke Asthma Social History Smoking Status: Never smoker Second Hand Exposure: Yes ( smoked for 35 years per patient); Do You Dip or Chew Tobacco: No; Hx Alcohol Use: No Hx Substance Use: No Preferred Language: Slovenian Communication Ability: Effective Visual Impairment: No Limitations Shoe Designer Required: No Beliefs That Will Affect Care: None marital status: Current Living Situation: Family Current Living Situation Comment: Lives at home with daughter. 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 Feels Safe at Home: Yes Assistive Devices: None Review of Systems 2 Review of Systems: All systems reviewed & are unremarkable except as noted in HPI & below Physical Exam Constitutional: WD/WN, vitals as above cooperative; not in distress Neck: trachea midline Respiratory: normal respiratory effort, lungs clear to auscultation Auscultation: + diminished lung sounds Cardiovascular: Rate/Rhythm: regular rate and regular rhythm Vessels: femoral pulses present, posterior tibial pulses present, dorsalis pedis pulses present and radial pulses present; + abnormal peripheral pulses Extremities: normal capillary refill and + edema (+2 RLE, +1LLE) Gastrointestinal (Abdomen): Inspection/Auscultation: abdomen normal to inspection and normal bowel sounds Percussion/Palpation: abdomen soft; abdomen nontender Musculoskeletal: no cyanosis or clubbing, extremities motor strength 5/5 Skin: no rashes, warm and dry Neurologic: moves all extremities and awake; no focal motor deficits and not confused Psychiatric: A+Ox3, euthymic affect Results & Data Vital Signs (Past 12 Hours) Vital Signs Temp Pulse Pulse Resp BP BP Pulse Ox 11/15/23 08:46 79 11/15/23 07:41 36.6 C 89 17 120/76 94 11/15/23 04:00 36.8 C 81 18 141/92 H 95 11/14/23 22:52 78 11/14/23 22:00 36.7 C 85 17 94/73 L 93 O2 Del Method 11/15/23 08:46 11/15/23 07:41 Room Air 11/15/23 04:00 Room Air 11/14/23 22:52 11/14/23 22:00 Room Air
[2023-11-15] MEDS: bisacodyL 10 MG SUPP PR STA (11:51)
--- NOTE | 2023-11-15 15:47 | Hospitalist Progress Note ---
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 They recommended anticoagulation. I spoke to vascular surgery on at [facility], Dr. Torres, who reiterated the need for anticoagulation and also Raghu bandage of both legs and elevation -Patient initially was reluctant given his recent retroperitoneal hemorrhage, After discussing with his daughter patient was agreeable to anticoagulation. The risk benefits were also explained to him -Has been on heparin by weight -According To Dr. Torres, patient is not a candidate for thrombolysis -pain is tolerable today -Will await evaluation from our own vascular surgeon, hopefully tomorrow (2) Back pain: Plan: Presented to the ED this a.m. with multiple complaints including worsening chronic lumbar back pain, neck pain, and lightheadedness/diaphoresis after standing Has remained stable, labs are unremarkable CT of the abdomen pelvis with IV contrast is negative for acute trauma or changes in the surgical site, did note extensive occlusive deep vein thrombi in the IVC, bilateral iliac vein and visualized bilateral femoral veins Patient notes some heaviness in the bilateral lower extremities since pain has increased last night but has been able to ambulate safely since arrival, denies red flag symptoms and has nonfocal neurologic exam Suspect that his pain related to his chronic lumbar back pain/musculoskeletal pain [facility] consulted MRI was canceled because of the issues he had with his pacemaker. -CT pelvis has been ordered, shows asymmetric soft tissue edema subcutaneous fluid right thigh compared to the left Appreciate spine surgery recommendations. I doubt if any procedure would be planned for now given ongoing anticoagulation with heparin (3) Neck pain: Plan: Patient is experiencing ongoing at the site of his radio Frequency Ablation Right C2,C3,C4 medial branches on 11/03/2023 with pain management No new neurological findings, it was explained to he and his family that pain can get worse prior to improving in approximately 30 days status post the procedure We will continue with pain management as per back pain plan Pain mgt on board (4) HTN (hypertension): Plan: Currently stable Continue amlodipine and losartan (5) BPH (benign prostatic hyperplasia): Plan: Continue finasteride Will follow-up with [facility] when results are available (6) MG (acute kidney injury): Plan: due to dehydration and diuresis monitor renal functions closely Plan Continue to monitor in the hospital, hopefully d/c after final recs from vascular surgery Admission and Anticipated Discharge Date Admission Date: November 09, 2023 Subjective Patient seen and examined, Sitting up in the chair, states his pain is now more tolerable. Review of Systems Review of Systems: All systems reviewed are negative, apart from the ones contained in the history. Physical Exam Physical Exam: The patient is awake, alert and oriented 3, well developed and well nourished, normocephalic and atraumatic, lying in bed and in no acute distress. HEENT--PERRL, EOMI, mucous membranes and oropharynx mildly dry Neck--supple. No JVD. No bruits. Thyroid normal, trachea midline, no adenopathy. Heart--normal S1 and S2. No murmurs, rubs or gallops. Lungs--clear bilaterally, no respiratory distress, no accessory muscle use. Abdomen--normal bowel sounds and soft. Extremities--Bilateral lower extremity edema Dermatologic--normal skin turgor, normal color, no abnormal lymph nodes, no rash. Neurologic--cranial nerves II through XII grossly intact. Rheumatologic--normal range of motion. Psychiatric--normal affect. Results & Data Results & Data Vital Signs (Past 12 Hours) Vital Signs Temp Pulse Pulse Pulse Resp BP BP 11/15/23 15:45 97.7 F 77 18 126/89 11/15/23 15:33 83 11/15/23 11:11 97.9 F 83 20 124/84 11/15/23 08:46 79 11/15/23 07:41 97.9 F 89 17 120/76 11/15/23 04:00 98.2 F 81 18 141/92 H Pulse Ox O2 Del Method 11/15/23 15:45 94 Room Air 11/15/23 15:33 11/15/23 11:11 91 Room Air 11/15/23 08:46 11/15/23 07:41 94 Room Air 11/15/23 04:00 95 Room Air PG Care Time/CCT Total # of Minutes Spent Total Time Spent with Patient: Total time spent is greater than 50% in coordination of care (as documented) at patient's floor/unit and/or counseling patient: Coding Level of Care Code 48455 SUB INP/OBS CARE 2/35MIN Diagnoses 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
[2023-11-16 05:23] LABS: ANTI-Xa, UFH(UnfractionatedHep 0.37 IU/ml (0.3-0.7)
[2023-11-16 05:33] LABS: Hematocrit (blood only) 38.1 % (42.0-52.0); Hemoglobin 12.6 g/dl (14.0-18.0); Mean Corpuscular Hemoglobin 29.8 pg (25.0-34.0); Mean Corpuscular Hgb Conc 33.1 g/dL (32.0-36.0); Mean Corpuscular Volume 90.1 fL (80.0-100.0); Mean Platelet Volume 10.8 fL (9.4-12.4); Platelet Count 196 K/uL (130-400); RDW Coefficient of Variation 14.1 % (11.5-14.5); RDW Standard Deviation 45.8 fL (36.4-46.3); Red Blood Count 4.23 M/uL (4.70-6.10); White Blood Count 9.33 K/ul (4.8-10.8)
[2023-11-16 05:44] LABS: BUN Creatinine Ratio 34.5 (10-20); Creatinine Clr Calc Pharmacy 28.5 ml/min; Est GFR (African American) 41.4 ml/min; Est GFR (Non-African American) 35.7 ml/min; Potassium 4.7 mmol/L (3.5-5.1)
--- NOTE | 2023-11-16 11:36 | Hospitalist Progress Note ---
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 They recommended anticoagulation. I spoke to vascular surgery on at [facility], Dr. Torres, who reiterated the need for anticoagulation and also Raghu bandage of both legs and elevation -Patient initially was reluctant given his recent retroperitoneal hemorrhage, After discussing with his daughter patient was agreeable to anticoagulation. The risk benefits were also explained to him -Has been on heparin by weight, transitioned to PO Coumadin today, monitor INR -According to Vascular surgery, patient is not a candidate for thrombolysis -pain is tolerable today -Appreciate input from vascular surgery (2) Back pain: Plan: Presented to the ED this a.m. with multiple complaints including worsening chronic lumbar back pain, neck pain, and lightheadedness/diaphoresis after stand ing Has remained stable, labs are unremarkable CT of the abdomen pelvis with IV contrast is negative for acute trauma or changes in the surgical site, did note extensive occlusive deep vein thrombi in the IVC, bilateral iliac vein and visualized bilateral femoral veins Patient notes some heaviness in the bilateral lower extremities since pain has increased last night but has been able to ambulate safely since arrival, denies red flag symptoms and has nonfocal neurologic exam Suspect that his pain related to his chronic lumbar back pain/musculoskeletal pain [facility] consulted MRI was canceled because of the issues he had with his pacemaker. -CT pelvis has been ordered, shows asymmetric soft tissue edema subcutaneous fluid right thigh compared to the left Appreciate spine surgery recommendations. I doubt if any procedure would be planned for now given ongoing anticoagulation with heparin (3) Neck pain: Plan: Patient is experiencing ongoing at the site of his radio Frequency Ablation Right C2,C3,C4 medial branches on 11/03/2023 with pain management No new neurological findings, it was explained to he and his family that pain can get worse prior to improving in approximately 30 days status post the procedure We will continue with pain management as per back pain plan Pain mgt on board (4) HTN (hypertension): Plan: Currently stable Continue amlodipine and losartan (5) BPH (benign prostatic hyperplasia): Plan: Continue finasteride Will follow-up with [facility] when results are available (6) MG (acute kidney injury): Plan: due to dehydration and diuresis monitor renal functions closely Plan Continue to monitor in the hospital, hopefully d/c home with home health in the next 48 hrs Admission and Anticipated Discharge Date Admission Date: November 09, 2023 Subjective Patient seen and examined, Sitting up in the chair, states his pain is now more tolerable. Review of Systems Review of Systems: All systems reviewed are negative, apart from the ones contained in the history. Physical Exam Physical Exam: The patient is awake, alert and oriented 3, well developed and well nourished, normocephalic and atraumatic, lying in bed and in no acute distress. HEENT--PERRL, EOMI, mucous membranes and oropharynx mildly dry Neck--supple. No JVD. No bruits. Thyroid normal, trachea midline, no adenopathy. Heart--normal S1 and S2. No murmurs, rubs or gallops. Lungs--clear bilaterally, no respiratory distress, no accessory muscle use. Abdomen--normal bowel sounds and soft. Extremities--Bilateral lower extremity edema Dermatologic--normal skin turgor, normal color, no abnormal lymph nodes, no rash. Neurologic--cranial nerves II through XII grossly intact. Rheumatologic--normal range of motion. Psychiatric--normal affect. Results & Data Results & Data Vital Signs (Past 12 Hours) Vital Signs Temp Pulse Pulse Resp BP BP Pulse Ox 11/16/23 10:15 11/16/23 07:57 98.1 F 91 H 16 99/64 L 90 11/16/23 07:25 81 11/16/23 06:09 97.7 F 83 16 127/79 96 11/16/23 06:04 11/16/23 03:50 97.7 F 80 18 103/84 94 11/16/23 00:06 79 O2 Del Method 11/16/23 10:15 Room Air 11/16/23 07:57 Room Air 11/16/23 07:25 11/16/23 06:09 Room Air 11/16/23 06:04 Room Air 11/16/23 03:50 Room Air 11/16/23 00:06 PG Care Time/CCT Total # of Minutes Spent Total Time Spent with Patient: Total time spent is greater than 50% in coordination of care (as documented) at patient's floor/unit and/or counseling patient: Coding Level of Care Code 99637 SUB INP/OBS CARE 2/35MIN Diagnoses 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
[2023-11-16] MEDS: WARFARIN SOD 5 MG TAB PO ONE (11:45)
[2023-11-16] MEDS: MoRPHine SULFATE 2 MG/ML CARP IV STA (15:30)
--- NOTE | 2023-11-16 19:42 | Ultrasound Report ---
ULTRASOUND LEFT LOWER EXTREMITY ARTERIAL CLINICAL HISTORY: Left leg pain and discoloration. COMPARISON STUDY: Bilateral lower extremity arterial ultrasound dated 11/12/2023. TECHNIQUE: Real-time caballero scale and color Doppler sonography of the arteries of the left lower extrem ity is performed from the inguinal crease to the foot. FINDINGS: Atherosclerotic plaque and irregularity seen throughout the arteries of the left lower extr emity. The common femoral artery is patent with normal triphasic waveforms and velocities measuring u p to 78 cm/sec. The profunda femoris artery is patent with velocities measuring up to 60 cm/sec. Ther e are triphasic waveforms throughout the superficial femoral and popliteal arteries. Velocities in th e superficial femoral artery measure up to 80 cm/sec and velocities in the popliteal artery measure u p to 51 cm/sec. There is three-vessel runoff to the foot. Velocities in the calf arteries measure up to 77 cm/sec. The dorsalis pedis artery is patent with velocities measuring up to 95 cm/sec. IMPRESSION: There is no sonographic evidence of high-grade stenosis or focal vessel cut off throughou t the arteries of the left lower extremity. Dictated: 11/16/2023 7:02 PM Transcribed: 11/16/2023 7:36 PM Tanvir [id number] [id number] Electronically signed by: Elia Thompson M.D. 11/16/2023 7:40 PM
[2023-11-17 07:07] LABS: ANTI-Xa, UFH(UnfractionatedHep 0.32 IU/ml (0.3-0.7); INR 0.9 (0.9-1.1); Prothrombin Time 10.3 Seconds (9.0-12.0)
[2023-11-17 08:28] LABS: BUN Creatinine Ratio 30.1 (10-20); Calcium 8.9 mg/dl (8.6-10.3); Creatinine Clr Calc Pharmacy 29.8 ml/min; Est GFR (African American) 43.8 ml/min; Est GFR (Non-African American) 37.8 ml/min; Potassium 4.4 mmol/L (3.5-5.1)
[2023-11-17] MEDS ORDERED: Nursing to Pharmacy Communication SCH (08:30)
--- NOTE | 2023-11-17 10:42 | Hospitalist Progress Note ---
Date of Service November 17, 2023 Assessment & Plan (1) Acute deep vein thrombosis (DVT) of both lower extremities: Plan: -patient was admitted with Worsening bilateral lower extremity edema and pain IVC filter noted to have extensive clot burden with noted thrombi in the bilateral iliac veins and visualized bilateral femoral veins I personally spoke to interventional radiology at [facility]. They recommended anticoagulation. I spoke to vascular surgery on at [facility], Dr. Torres, who reiterated the need for anticoagulation and also Raghu bandage of both legs and elevation -Patient initially was reluctant given his recent retroperitoneal hemorrhage, After discussing with his daughter patient was agreeable to anticoagulation. The risk benefits were also explained to him -Has been on heparin by weight, transitioned to PO Coumadin today, monitor INR -According to Vascular surgery, patient is not a candidate for thrombolysis -pain is tolerable today -Appreciate input from vascular surgery -Patient has had vascular duplex studies twice and shows acceptable blood flow in both lower extremities (2) Back pain: Plan: Presented to the ED this a.m. with multiple complaints including worsening chronic lumbar back pain, neck pain, and lightheadedness/diaphoresis after standing Has remained stable, labs are unremarkable CT of the abdomen pelvis with IV contrast is negative for acute trauma or changes in the surgical site, did note extensive occlusive deep vein thrombi in the IVC, bilateral iliac vein and visualized bilateral femoral veins Patient notes some heaviness in the bilateral lower extremities since pain has increased last night but has been able to ambulate safely since arrival, denies red flag symptoms and has nonfocal neurologic exam Suspect that his pain related to his chronic lumbar back pain/musculoskeletal pain [facility] consulted MRI was canceled because of the issues he had with his pacemaker. -CT pelvis has been ordered, shows asymmetric soft tissue edema subcutaneous fluid right thigh compared to the left Appreciate spine surgery recommendations. I doubt if any procedure would be planned for now given ongoing anticoagulation with heparin (3) Neck pain: Plan: Patient is experiencing ongoing at the site of his radio Frequency Ablation R ight C2,C3,C4 medial branches on 11/03/2023 with pain management No new neurological findings, it was explained to he and his family that pain can get worse prior to improving in approximately 30 days status post the procedure We will continue with pain management as per back pain plan Pain mgt on board (4) HTN (hypertension): Plan: Currently stable Continue amlodipine and losartan (5) BPH (benign prostatic hyperplasia): Plan: Continue finasteride Will follow-up with [facility] when results are available (6) MG (acute kidney injury): Plan: due to dehydration and diuresis monitor renal functions closely (7) 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 Physical Exam Physical Exam: The patient is awake, alert and oriented 3, well developed and well nourished, normocephalic and atraumatic, lying in bed and in no acute distress. HEENT--PERRL, EOMI, mucous membranes and oropharynx mildly dry Neck--supple. No JVD. No bruits. Thyroid normal, trachea midline, no adenopathy. Heart--normal S1 and S2. No murmurs, rubs or gallops. Lungs--clear bilaterally, no respiratory distress, no accessory muscle use. Abdomen--normal bowel sounds and soft. Extremities--Bilateral lower extremity edema Dermatologic--normal skin turgor, normal color, no abnormal lymph nodes, no rash. Neurologic--cranial nerves II through XII grossly intact. Rheumatologic--normal range of motion. Psychiatric--normal affect. Results & Data Results & Data Vital Signs (Past 12 Hours) Vital Signs Temp Pulse Resp BP BP Pulse Ox O2 Del Method 11/17/23 07:57 98.1 F 86 20 121/78 90 Room Air 11/17/23 03:04 98.2 F 81 18 127/85 96 Room Air 11/16/23 23:52 Room Air PG Care Time/CCT Total # of Minutes Spent Total Time Spent with Patient: Total time spent is greater than 50% in coordination of care (as documented) at patient's floor/unit and/or counseling patient: Coding Level of Care Code 51066 SUB INP/OBS CARE 2/35MIN Diagnoses Acute deep vein thrombosis (DVT) of both lower extremities I82.403 Affected thrombotic vein of extremity: unspecified vein of extremity Back pain M54.9 Back pain location: low back pain Chronicity: acute Neck pain M54.2 HTN (hypertension) I10 BPH (benign prostatic hyperplasia) N40.0 MG (acute kidney injury) N17.9 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
[2023-11-17] MEDS: WARFARIN SOD 5 MG TAB PO ONE (11:10)
[2023-11-17] MEDS: WARFARIN SOD 5 MG TAB PO SCH (17:43)
[2023-11-17] MEDS: diphenhydrAMINE Capsule 25 MG CAP PO ONE (23:14)
[2023-11-18 07:54] LABS: Basophils # (auto) 0.03 K/uL (0.00-0.20); Basophils % (auto) 0.5 %; Eosinophils # (auto) 0.14 K/uL (0.00-0.50); Eosinophils % (auto) 2.2 %; Hemoglobin 12.4 g/dl (14.0-18.0); Immature Granulocytes # (auto) 0.04 K/uL (0.01-0.20); Immature Granulocytes % (auto) 0.6 %; Lymphocytes # (auto) 0.77 K/uL (1.20-3.40); Mean Corpuscular Hemoglobin 29.8 pg (25.0-34.0); Mean Corpuscular Hgb Conc 33.5 g/dL (32.0-36.0); Mean Corpuscular Volume 88.9 fL (80.0-100.0); Mean Platelet Volume 9.9 fL (9.4-12.4); Monocytes # (auto) 0.59 K/uL (0.11-0.59); Monocytes % (auto) 9.2 %; Neutrophils # (auto) 4.84 K/uL (1.40-6.50); Neutrophils % (auto) 75.5 %; Platelet Count 263 K/uL (130-400); RDW Coefficient of Variation 14.4 % (11.5-14.5); Red Blood Count 4.16 M/uL (4.70-6.10); White Blood Count 6.41 K/ul (4.8-10.8)
[2023-11-18 08:23] LABS: INR 1.8 (0.9-1.1); Prothrombin Time 18.2 Seconds (9.0-12.0)
--- NOTE | 2023-11-18 11:41 | Hospitalist Progress Note ---
Date of Service November 18, 2023 Assessment & Plan (1) Acute deep vein thrombosis (DVT) of both lower extremities: Plan: -patient was admitted with Worsening bilateral lower extremity edema and pain IVC filter noted to have extensive clot burden with noted thrombi in the bilateral iliac veins and visualized bilateral femoral veins Multiple vascular surgery on palpation and also our vascular surgeon. IN agreement that he needs anticoagulation on an Raghu bandage and leg elevation. Both in agreement that he is not a candidate for thrombolysis -Patient initially was reluctant given his recent retroperitoneal hemorrhage, After discussing with his daughter patient was agreeable to anticoagulation. The risk benefits were also explained to him -Has been on heparin by weight, transitioned to PO Coumadin today, monitor INR, today 1.8 -According to Vascular surgery, patient is not a candidate for thrombolysis -pain is tolerable today -Appreciate input from vascular surgery -Patient has had vascular duplex studies twice and shows acceptable blood flow in both lower extremities (2) Back pain: Plan: Presented to the ED this a.m. with multiple complaints including worsening chronic lumbar back pain, neck pain, and lightheadedness/diaphoresis after standing Has remained stable, labs are unremarkable CT of the abdomen pelvis with IV contrast is negative for acute trauma or changes in the surgical site, did note extensive occlusive deep vein thrombi in the IVC, bilateral iliac vein and visualized bilateral femoral veins Patient notes some heaviness in the bilateral lower extremities since pain has increased last night but has been able to ambulate safely since arrival, denies red flag symptoms and has nonfocal neurologic exam Suspect that his pain related to his chronic lumbar back pain/musculoskeletal pain [facility] consulted MRI was canceled because of the issues he had with his pacemaker. -CT pelvis has been ordered, shows asymmetric soft tissue edema subcutaneous fluid right thigh compared to the left Appreciate spine surgery recommendations. I doubt if any procedure would be planned for now given ongoing anticoagulation with heparin (3) Neck pain: Plan: Patient is experiencing ongoing at the site of his radio Frequency Ablation Right C2,C3,C4 medial branches on 11/03/2023 with pain management No new neurological findings, it was explained to he and his family that pain can get worse prior to improving in approximately 30 days status post the procedure We will continue with pain management as per back pain plan Pain mgt on board (4) HTN (hypertension): Plan: Currently stable Continue amlodipine and losartan (5) BPH (benign prostatic hyperplasia): Plan: Continue finasteride Will follow-up with [facility] when results are available (6) MG (acute kidney injury): Plan: due to dehydration and diuresis monitor renal functions closely (7) 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 Physical Exam Physical Exam: The patient is awake, alert and oriented 3, well developed and well nourished, normocephalic and atraumatic, lying in bed and in no acute distress. HEENT--PERRL, EOMI, mucous membranes and oropharynx mildly dry Neck--supple. No JVD. No bruits. Thyroid normal, trachea midline, no adenopathy. Heart--normal S1 and S2. No murmurs, rubs or gallops. Lungs--clear bilaterally, no respiratory distress, no accessory muscle use. Abdomen--normal bowel sounds and soft. Extremities--Bilateral lower extremity edema Dermatologic--normal skin turgor, normal color, no abnormal lymph nodes, no rash. Neurologic--cranial nerves II through XII grossly intact. Rheumatologic--normal range of motion. Psychiatric--normal affect. Results & Data Results & Data Vital Signs (Past 12 Hours) Vital Signs Temp Pulse Pulse Resp BP BP Pulse Ox 11/18/23 08:03 97.3 F L 81 18 128/87 93 11/18/23 07:42 11/18/23 06:01 83 11/18/23 02:11 97.9 F 72 16 118/78 94 O2 Del Method 11/18/23 08:03 Room Air 11/18/23 07:42 Room Air 11/18/23 06:01 11/18/23 02:11 Room Air PG Care Time/CCT Total # of Minutes Spent Total Time Spent with Patient: Total time spent is greater than 50% in coordination of care (as documented) at patient's floor/unit and/or counseling patient: Coding Level of Care Code 53726 SUB INP/OBS CARE 2/35MIN Diagnoses Acute deep vein thrombosis (DVT) of both lower extremities I82.403 Affected thrombotic vein of extremity: unspecified vein of extremity Back pain M54.9 Back pain location: low back pain Chronicity: acute Neck pain M54.2 HTN (hypertension) I10 BPH (benign prostatic hyperplasia) N40.0 MG (acute kidney injury) N17.9 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
[2023-11-19 03:40] VITALS: TEMP 97.9; O2SAT 93
[2023-11-19 07:42] VITALS: PULSE 81; RESP 16
[2023-11-19 08:03] LABS: ANTI-Xa, UFH(UnfractionatedHep 0.23 IU/ml (0.3-0.7); INR 4.3 (0.9-1.1); Prothrombin Time 40.8 Seconds (9.0-12.0)
[2023-11-19 08:23] LABS: Calcium 9.4 mg/dl (8.6-10.3); Potassium 4.7 mmol/L (3.5-5.1)
[2023-11-19 08:47] LABS: BUN Creatinine Ratio 21.5 (10-20); Creatinine Clr Calc Pharmacy 36.7 ml/min; Est GFR (African American) 56.3 ml/min; Est GFR (Non-African American) 48.5 ml/min
[2023-11-19] MEDS ORDERED: CYCLOBENZAPRINE HCL 10 MG TAB PO SCH ×2 (09:00→21:00)
[2023-11-19 10:43] VITALS: BP 131/87
--- NOTE | 2023-11-19 11:16 | Discharge Summary ---
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 He was noted to be hypertensive in the ED after but otherwise stable. Labs were sig nificant for a leukocytosis of 11 with neutrophil predominance 9, creatinine of 1.66 (baseline is 1.3). CT of the abdomen pelvis with IV contrast was read as extensive occlusive deep vein thrombosis involving the IVC, bilateral iliac veins, and visualized bilateral femoral veins. The left psoas intramuscular hematoma has resolved in the interval. No bowel wall thickening or obstruction. Bladder wall thickening. This is likely due to chronic outlet obstruction. Bilateral nephrolithiasis. No hydronephrosis. A 4 mm stone versus polyp within the gallbladder fundus. Patient was given 1 g IV Tylenol, 25 mcg IV fentanyl, lidocaine patch, 80 mg IV methylprednisolone, 2 mg IV morphine, and 5 mg p.o. oxycodone while in the ED without significant improvement in his symptoms. The ED staff did speak with [place] vascular surgery who confirmed that the IVC filter appears to be functioning appropriately and would not make recommendations for systemic anticoagulation. We are asked to admit the patient for ongoing uncontrolled back pain. Patient was lying in bed in no acute distress at time of exam with his son and daughter sitting bedside, history is obtained from both. He explains that he had been in his normal state of health yesterday evening and went on a walk around his property to get some exercise before bed. States that on his first loop he felt well. During his second loop he started to feel increased pain in his lumbar back at the site of his normal lumbar back pain and previous surgical site. Denies saddle anesthesia, loss of bowel or bladder function, new parest hesias in either lower extremity, or unilateral lower extremity weakness since this pain started. However, he states that after the pain increased he has been experiencing "heaviness" in the bilateral lower extremities. Has not had a fall since this pain increase. He did take his home oxycodone last night and was able to fall asleep. However when he woke up this morning, his pain was again severe. He went to the bathroom to try and have a bowel movement but was unable to. After standing he experienced a sudden onset of lightheadedness and diaphoresis which subsided after rest. At the present time his lumbar back pain is under control while lying and resting but he is having approximately 8 out of 10 pain in the right cervical spine at his recent Radio Frequency Ablation of the Right C2,C3,C4 Medial Branches on 11/03/2023. Denies weakness or paresthesias in the upper extremities since pain is exacerbated. We had a long discussion regarding her increased clot burden his IVC filter. He is not experiencing side effects of increased clot burden such as lower extremity swelling. We explained that it was thought that the lucent pedicle screw in his lumbar spine was the cause of his large peritoneal hematoma and he was started on heparin drip in July of this year. They confirm that it is likely too high risk of a procedure to have the screw removed. Since the patient is not experiencing symptoms from increased clot burden the IVC filter and will be at significantly high risk of bleeding if he were to be restarted on anticoagulation he and his family are in agreement that they would not want to start anticoagulation at this time. Patient confirms that he is a full code Discharge to make decisions for him if he cannot make them himself. Admission Exam (Per Admitting) Constitutional The patient is awake, alert and oriented 3, well developed and well nourished, normocephalic and atraumatic, lying in bed and in no acute distress. HEENT--PERRL, EOMI, mucous membranes and oropharynx mildly dry Neck--supple. No JVD. No bruits. Thyroid normal, trachea midline, no adenopathy. Heart--normal S1 and S2. No murmurs, rubs or gallops. Lungs--clear bilaterally, no respiratory distress, no accessory muscle use. Abdomen--normal bowel sounds and soft. Extremities--no cyanosis or clubbing. No edema. Dermatologic--normal skin turgor, normal color, no abnormal lymph nodes, no rash. Neurologic--cranial nerves II through XII grossly intact. Rheumatologic--normal range of motion. Psychiatric--normal affect. Discharge Data Consultations 11/09/23 13:57 ED Decision to Admit Stat 11/09/23 15:58 ED Decision to Admit Stat 11/10/23 12:53 Consult Orthopedic Spine Surgery Routine 11/14/23 09:13 Consult Pain Management Routine 11/14/23 12:29 Consult Vascular Surgery Routine Hospital Course (1) Acute deep vein thrombosis (DVT) of both lower extremities: -patient was admitted with Worsening bilateral lower extremity edema and pain IVC filter noted to have extensive clot burden with noted thrombi in the bilateral iliac veins and visualized bilateral femoral veins Multiple vascular surgery on palpation and also our vascular surgeon. IN a greement that he needs anticoagulation on an Raghu bandage and leg elevation. Both in agreement that he is not a candidate for thrombolysis -Patient initially was reluctant given his recent retroperitoneal hemorrhage, After discussing with his daughter patient was agreeable to anticoagulation. The risk benefits were also explained to him -Has been on heparin by weight, transitioned to PO Coumadin today, monitor INR, today 4.0 -According to Vascular surgery, patient is not a candidate for thrombolysis -pain is tolerable today -Appreciate input from vascular surgery -Patient has had vascular duplex studies twice and shows acceptable blood flow in both lower extremities -Discharging on p.o. Coumadin 4 mg daily Was also asked to follow-up with the Coumadin clinic. (2) Back pain: Presented to the ED this a.m. with multiple complaints including worsening chronic lumbar back pain, neck pain, and lightheadedness/diaphoresis after standing Has remained stable, labs are unremarkable CT of the abdomen pelvis with IV contrast is negative for acute trauma or changes in the surgical site, did note extensive occlusive deep vein thrombi in the IVC, bilateral iliac vein and visualized bilateral femoral veins Patient notes some heaviness in the bilateral lower extremities since pain has increased last night but has been able to ambulate safely since arrival, denies red flag symptoms and has nonfocal neurologic exam Suspect that his pain related to his chronic lumbar back pain/musculoskeletal pain [facility] consulted MRI was canceled because of the issues he had with his pacemaker. -CT pelvis has been ordered, shows asymmetric soft tissue edema subcutaneous fluid right thigh compared to the left Appreciate spine surgery recommendations. I doubt if any procedure would be planned for now given ongoing anticoagulation with heparin (3) Neck pain: Patient is experiencing ongoing at the site of his radio Frequency Ablation Right C2,C3,C4 medial branches on 11/03/2023 with pain management No new neurological findings, it was explained to he and his family that pain can get worse prior to improving in approximately 30 days status post the procedure We will continue with pain management as per back pain plan Pain mgt on board (4) HTN (hypertension): Currently stable Continue amlodipine and losartan (5) BPH (benign prostatic hyperplasia): Continue finasteride Will follow-up with [facility] when results are available (6) MG (acute kidney injury): due to dehydration and diuresis monitor renal functions closely (7) 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
== END 2023-11-19 12:59 | disposition home health service (06) | DRG 314 ==
LOC: ED 09:17 → SUATTDRO 17:33 → 3W 17:33 → 2E 11-13 00:27 → 2N 11-16 05:53

== ENCOUNTER 2025-02-04 06:39 | Inpatient (IN) ==
--- NOTE | 2025-02-04 06:57 | Emergency Department Note ---
Impression & Plan Acute kidney injury superimposed on CKD, Kidney stone on left side ED Provider Note Provider: Jamil Doe MD CHIEF COMPLAINT: Kidney stone, pain HISTORY OF PRESENT ILLNESS: Patient is a 84-year-old gentleman history of CKD, essential tremor, VTE on Eliquis, and kidney stone presenting here today with worsening pain and nausea vomiting since around 4 AM. Was seen in the emergency department here yesterday and diagnosed with a 7 mm left-sided stone. Took oxycodone at home and 1 last night at midnight. Slept several hours and then had nausea and significant pain and thus came back here this morning. No fever or chills. No new trauma. Pain waxing waning and similar to prior stones. Is not a surgical intervention on the stones before but has seen nephrology and urology in the past. Pain primarily in the left flank region and minimal nausea at this moment. PAST MEDICAL HISTORY: As noted above MEDICATIONS: Reviewed home medications includes Eliquis SOCIAL HISTORY: Non-smoker PHYSICAL EXAM: GENERAL: alert and oriented in no acute distress on stretcher Head: normocephalic and atraumatic EYES: No injection, discharge or icterus. EOMI. NECK: Trachea midline. Good range of motion ENT: Mucous membranes pink and moist. LUNGS: Airway patent. No retractions or tachypnea HEART: Regular rate and rhythm. ABDOMEN: Soft and non-tender, without guarding or rebound. Masses appreciable SKIN: Acyanotic, warm, dry, without rashes EXTREMITIES: Without swelling, tenderness or deformity NEUROLOGICAL: No focal deficits. No aphasia. No facial droop or slurred speech. Ambulatory. Patient's laboratory studies and imaging reviewed. Differential includes Renal colic, UTI, appendicitis, diverticulitis, mesenteric ischemia, aortic pathology, infections, inflammatory bowel disease, PUD, biliary pathology, as well as other pathologies. IMPRESSION/MEDICAL DECISION MAKING: Patient developed significant pain about 4 hours after last dose of oxycodone. No fevers reported or rigors. Vitals here with some hypertension but no tachycardia or fever. Urinalysis sample sent to exclude development of infection. Basic blood work is obtained. Had CT imaging yesterday and reviewed no/report from this. Seems consistent with a left-sided kidney stone and do not feel we need repeat imaging at this time. Given some morphine, and Zofran for symptom control here. With his CKD avoiding Toradol. Blood without anemia. White blood cell count is elevated at 12 today but no again fever and urinalysis not impressive for infection. Given some IV fluid and creatinine is noted elevated 2.4 from baseline of 1.6. Bed side bladder scan less than 50 cc. Did reach out discussed with urology given his worsened renal function and pain. They will evaluate him for possible stent placement. Discussed with the hospitalist team for admission for further pain control and hopeful monitor improvement of his renal function. Patient agreeable with this plan. DIAGNOSIS: MG on CKD, left-sided kidney stone DISPOSITION: Hospitalist will evaluate Patient was agreeable with this plan. 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) Neck pain Back pain (Acute) Iliopsoas muscle hematoma Pulmonary embolism (Acute) Cervical facet joint syndrome Urinary retention Degenerative joint disease of cervical spine HTN (hypertension) (Chronic) Chronic back pain Lumbar stenosis Syncope (Acute) Disc degeneration, lumbar (Acute) Arthritis (Acute) Actinic keratosis (Acute) Asymmetric SNHL (sensorineural hearing loss) Thoracic facet syndrome Erectile dysfunction Proteinuria Osteoarthritis Vitamin D deficiency AVB (atrioventricular block) Medical History Stage 3b chronic kidney disease Sensorineural hearing loss (SNHL) of right ear with restricted hearing of left ear Dyslipidemia BPH (benign prostatic hyperplasia) Osteoarthritis 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 Nephrolithiasis Hiatal hernia Ankylosing spondylitis Remotely diagnosed Chronic, constant back pain History of basal cell carcinoma Surgical History 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 S/P total hip arthroplasty Status post placement of cardiac pacemaker History of basal cell carcinoma (BCC) excision History of back surgery x 4 History of left shoulder replacement History of right shoulder replacement History of esophagogastroduodenoscopy (EGD) History of colonoscopy Family History Mother , Mother age 99 with hypertension and arthritis Osteoarthritis Cancer Hypertension Father , Father age 48 of an HI. Myocardial infarction Other Family history non-contributory No family history of adverse response to anesthesia No family history of allergies No family history of bleeding disorder Denies family history of Hearing loss Heart disease Stroke Asthma Social History Smoking Status: Never smoker Second Hand Exposure: Yes ( smoked for 35 years per patient); Do You Dip or Chew Tobacco: No; Hx Alcohol Use: No Hx Substance Use: No Preferred Language: Macedonian Communication Ability: Effective Visual Impairment: No Limitations Quill Winder Required: No Beliefs That Will Affect Care: None marital status: Current Living Situation: Family Current Living Situation Comment: Lives at home with daughter. 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 Feels Safe at Home: Yes Diet: regular Physical Activity Frequency: Does not Exercise Do you think of yourself as: straight/heterosexual Gender Identity: Male Assistive Devices: Glasses Allergies Allergies Allergy/AdvReac Type Severity Reaction Status Date / Time hydrochlorothiazide Allergy Severe Rash Verified 02/04/25 12:14 doxazosin Allergy Intermediate RASH, Verified 02/04/25 12:14 ITCHING oxaprozin Allergy Intermediate RASH, Verified 02/04/25 12:14 ITCHING mycophenolate mofetil AdvReac Severe "MAKES ME Verified 02/04/25 12:14 [From CellCept] EXTREMELY ILL" terazosin AdvReac Intermediate nervousness Verified 02/04/25 12:14 Home Meds Home Medications Medication Instructions Recorded Confirmed multivitamin (Multiple Vitamins 1 tab PO QAM 03/21/18 02/04/25 tablet) cholecalciferol (vitamin D3) 25 1,000 unit PO QAM 08/05/18 02/04/25 mcg (1,000 unit) tablet pyridoxine (vitamin B6) 50 mg 50 mg PO QAM 08/05/18 02/04/25 tablet atorvastatin 40 mg tablet 40 mg PO QAM 04/03/20 02/04/25 losartan 100 mg tablet 100 mg PO QAM 11/27/20 02/04/25 nitroglycerin 0.4 mg sublingual 0.4 mg sublingual Q5M PRN Chest 11/27/20 02/04/25 tablet Pain calcium carbonate 500 mg PO QAM 05/15/23 02/04/25 omeprazole 40 mg capsule,delayed 40 mg PO QAM 05/26/23 02/04/25 release diclofenac sodium 1 % topical gel 1 ea topical QID PRN Pain 06/15/23 02/04/25 amlodipine 5 mg tablet 5 mg PO DAILY 04/05/24 02/04/25 amlodipine 2.5 mg tablet 2.5 mg PO DAILY 06/05/24 02/04/25 apixaban 5 mg tablet (Eliquis) 2.5 mg PO BID 08/03/24 02/04/25 Previous Rx's Medication Instructions Recorded finasteride 5 mg tablet 5 mg PO QAM #90 tabs 10/14/22 lidocaine 5 % topical patch 1 patch topical DAILY PRN pain #15 05/15/23 ea oxycodone 5 mg tablet 5 mg PO Q6H PRN pain #15 tabs 06/15/23 acetaminophen 650 mg 650 mg PO Q8H PRN fever or pain 11/19/23 tablet,extended release (Tylenol 8 #30 tabs Hour) gabapentin 300 mg capsule 300 mg PO BID #180 caps 10/02/24 propranolol 20 mg tablet 20 mg PO BID #180 tabs 11/21/24 Results & Data (ED) Vital Signs Vital Signs - 24 hr 02/04/25 06:44 02/04/25 06:56 02/04/25 06:57 Temperature 36.8 C Temperature Source Oral Pulse Rate 85 85 Pulse Rate [Apical] Pulse Rate from SpO2 Sensor Pulse Rhythm Regular Pulse Rhythm [Apical] Pulse Strength Normal Pulse Strength [Apical] Respiratory Rate 18 20 Respiratory Effort / Characteristics Non-Labored Spontaneous Respiratory Depth Normal Respiratory Pattern Regular Blood Pressure 127/81 171/93 H Blood Pressure [Right Arm] Blood Pressure Mean 96 117 Blood Pressure Mean [Right Arm] Blood Pressure Position [Right Arm] Pulse Oximetry 92 Oxygen Delivery Method Room Air Oxygen Flow Rate Sepsis Recent Fever Within 48 Hours No Sepsis New/Unexplained Change in Mental Status No Sepsis Action Taken by Nursing No Action Required 02/04/25 06:58 02/04/25 06:59 02/04/25 07:00 Temperature Temperature Source Pulse Rate 86 Pulse Rate [Apical] 84 Pulse Rate from SpO2 Sensor 86 Pulse Rhythm Pulse Rhythm [Apical] Pulse Strength Pulse Strength [Apical] Respiratory Rate 20 13 Respiratory Effort / Characteristics Non-Labored Spontaneous Respiratory Depth Respiratory Pattern Blood Pressure 145/93 H 145/95 H Blood Pressure [Right Arm] 171/93 H Blood Pressure Mean 110 100 Blood Pressure Mean [Right Arm] 119 Blood Pressure Position [Right Arm] Lying Pulse Oximetry 96 94 Oxygen Delivery Method Room Air Oxygen Flow Rate Sepsis Recent Fever Within 48 Hours Sepsis New/Unexplained Change in Mental Status Sepsis Action Taken by Nursing 02/04/25 07:00 02/04/25 07:00 02/04/25 07:00 Temperature Temperature Source Pulse Rate Pulse Rate [Apical] Pulse Rate from SpO2 Sensor Pulse Rhythm Pulse Rhythm [Apical] Pulse Strength Pulse Strength [Apical] Respiratory Rate Respiratory Effort / Characteristics Respiratory Depth Respiratory Pattern Blood Pressure 145/95 H 145/95 H 145/95 H Blood Pressure [Right Arm] Blood Pressure Mean 100 100 100 Blood Pressure Mean [Right Arm] Blood Pressure Position [Right Arm] Pulse Oximetry Oxygen Delivery Method Oxygen Flow Rate Sepsis Recent Fever Within 48 Hours Sepsis New/Unexplained Change in Mental Status Sepsis Action Taken by Nursing 02/04/25 07:00 02/04/25 07:02 02/04/25 07:05 Temperature Temperature Source Pulse Rate 81 79 Pulse Rate [Apical] Pulse Rate from SpO2 Sensor 83 Pulse Rhythm Regular Pulse Rhythm [Apical] Pulse Strength Pulse Strength [Apical] Respiratory Rate 15 18 Respiratory Effort / Characteristics Respiratory Depth Respiratory Pattern Blood Pressure 145/95 H Blood Pressure [Right Arm] Blood Pressure Mean 100 Blood Pressure Mean [Right Arm] Blood Pressure Position [Right Arm] Pulse Oximetry 94 94 Oxygen Delivery Method Room Air Oxygen Flow Rate Sepsis Recent Fever Within 48 Hours Sepsis New/Unexplained Change in Mental Status Sepsis Action Taken by Nursing 02/04/25 07:11 02/04/25 07:20 02/04/25 07:29 Temperature Temperature Source Pulse Rate 79 79 77 Pulse Rate [Apical] Pulse Rate from SpO2 Sensor 80 79 77 Pulse Rhythm Pulse Rhythm [Apical] Pulse Strength Pulse Strength [Apical] Respiratory Rate 20 20 20 Respiratory Effort / Characteristics Respiratory Depth Respiratory Pattern Blood Pressure Blood Pressure [Right Arm] Blood Pressure Mean Blood Pressure Mean [Right Arm] Blood Pressure Position [Right Arm] Pulse Oximetry 94 90 93 Oxygen Delivery Method Oxygen Flow Rate Sepsis Recent Fever Within 48 Hours Sepsis New/Unexplained Change in Mental Status Sepsis Action Taken by Nursing 02/04/25 07:30 02/04/25 07:30 02/04/25 07:30 Temperature Temperature Source Pulse Rate Pulse Rate [Apical] Pulse Rate from SpO2 Sensor Pulse Rhythm Pulse Rhythm [Apical] Pulse Strength Pulse Strength [Apical] Respiratory Rate Respiratory Effort / Characteristics Respiratory Depth Respiratory Pattern Blood Pressure 132/77 132/77 132/77 Blood Pressure [Right Arm] Blood Pressure Mean 92 92 92 Blood Pressure Mean [Right Arm] Blood Pressure Position [Right Arm] Pulse Oximetry Oxygen Delivery Method Oxygen Flow Rate Sepsis Recent Fever Within 48 Hours Sepsis New/Unexplained Change in Mental Status Sepsis Action Taken by Nursing 02/04/25 07:30 02/04/25 07:30 02/04/25 07:32 Temperature Temperature Source Pulse Rate 76 Pulse Rate [Apical] Pulse Rate from SpO2 Sensor 76 Pulse Rhythm Pulse Rhythm [Apical] Pulse Strength Pulse Strength [Apical] Respiratory Rate 18 Respiratory Effort / Characteristics Respiratory Depth Respiratory Pattern Blood Pressure 132/77 132/77 Blood Pressure [Right Arm] Blood Pressure Mean 92 92 Blood Pressure Mean [Right Arm] Blood Pressure Position [Right Arm] Pulse Oximetry 95 Oxygen Delivery Method Oxygen Flow Rate Sepsis Recent Fever Within 48 Hours Sepsis New/Unexplained Change in Mental Status Sepsis Action Taken by Nursing 02/04/25 07:41 02/04/25 07:50 02/04/25 07:56 Temperature Temperature Source Pulse Rate 80 74 Pulse Rate [Apical] 80 Pulse Rate from SpO2 Sensor 80 73 Pulse Rhythm Pulse Rhythm [Apical] Regular Pulse Strength Pulse Strength [Apical] Normal Respiratory Rate 17 15 18 Respiratory Effort / Characteristics Respiratory Depth Respiratory Pattern Blood Pressure Blood Pressure [Right Arm] 132/77 Blood Pressure Mean Blood Pressure Mean [Right Arm] 95 Blood Pressure Position [Right Arm] Pulse Oximetry 95 96 94 Oxygen Delivery Method Nasal Cannula Oxygen Flow Rate 2 Sepsis Recent Fever Within 48 Hours Sepsis New/Unexplained Change in Mental Status Sepsis Action Taken by Nursing 02/04/25 08:11 02/04/25 09:00 Temperature Temperature Source Pulse Rate 77 Pulse Rate [Apical] 87 Pulse Rate from SpO2 Sensor Pulse Rhythm Pulse Rhythm [Apical] Regular Pulse Strength Pulse Strength [Apical] Normal Respiratory Rate 16 Respiratory Effort / Characteristics Non-Labored Spontaneous Respiratory Depth Normal Respiratory Pattern Blood Pressure Blood Pressure [Right Arm] 111/75 Blood Pressure Mean Blood Pressure Mean [Right Arm] 87 Blood Pressure Position [Right Arm] Pulse Oximetry 94 Oxygen Delivery Method Room Air Oxygen Flow Rate Sepsis Recent Fever Within 48 Hours Sepsis New/Unexplained Change in Mental Status Sepsis Action Taken by Nursing Laboratory Data 02/04/25 06:33 02/04/25 06:33 Lab Results 02/04/25 02/04/25 Range/Units 06:33 06:52 WBC 12.06 H (4.8-10.8) K/ul RBC 4.96 (4.70-6.10) M/uL Hgb 15.3 (14.0-18.0) g/dL Hct 45.4 (42.0-52.0) % MCV 91.5 (80.0-100.0) fL MCH 30.8 (25.0-34.0) pg MCHC 33.7 (32.0-36.0) g/dL RDW Std Deviation 44.3 (36.4-46.3) fL RDW Coeff of Sel[place] 13.2 (11.5-14.5) % Plt Count 250 (130-400) K/uL MPV 9.4 (9.4-12.4) fL Immature Gran % (Auto) 0.4 % Neut % (Auto) 80.5 % Lymph % (Auto) 8.5 % [place] % (Auto) 9.8 % Eos % (Auto) 0.6 % Baso % (Auto) 0.2 % Neut # (Auto) 9.71 H (1.40-6.50) K/uL Lymph # (Auto) 1.02 L (1.20-3.40) K/uL [place] # (Auto) 1.18 H (0.11-0.59) K/uL Eos # (Auto) 0.07 (0.00-0.50) K/uL Baso # (Auto) 0.03 (0.00-0.20) K/uL Immature Gran # (Auto) 0.05 (0.01-0.20) K/uL Sodium 140 (136-145) mmol/L Potassium 4.0 (3.5-5.1) mmol/L Chloride 104 (98-107) mmol/L Carbon Dioxide 28 (21-32) mmol/L Anion Gap 8 (3-11) BUN 23 (6-23) mg/dl Creatinine 2.42 H D (0.6-1.4) mg/dl Est Cr Clr Drug Dosing 19.8 ml/min eGFR 25.70 BUN/Creatinine Ratio 9.5 L (10-20) Glucose 119 H (70-99(Fasting)) mg/dl Calcium 9.9 (8.6-10.3) mg/dl Total Bilirubin 0.9 (0.2-1.0) mg/dl AST 25 (13-39) U/L ALT 19 (7-52) U/L Alkaline Phosphatase 121 H (34-104) U/L Total Protein 7.6 (6.0-8.3) gm/dl Albumin 4.7 (3.4-5.0) gm/dl Globulin 2.9 (2.5-4.0) gm/dl Albumin/Globulin Ratio 1.6 (0.9-2) Lipase 25 (11-82) U/L Urine Color Yellow Urine Appearance Clear (Clear) Urine pH 5.0 (4.5-7.5) Ur Specific [place] > 1.045 H (1.000-1.030) Urine Protein 1+ H (Negative) Urine Glucose (UA) Negative (Negative) Urine Ketones Trace H (Negative) Urine Blood Negative (Negative) Urine Nitrite Negative (Negative) Urine Bilirubin Negative (Negative) Urine Urobilinogen Negative (Negative) Ur Leukocyte Esterase Negative (Negative) Urine WBC (Auto) 0-5 (0-5) /hpf Urine RBC (Auto) 0-2 (0-2) /hpf U Hyaline Cast (Auto) 3-5 H (0-2) /lpf U Epithel Cells (Auto) 0-2 (0-2) /hpf Urine Bacteria (Auto) None Seen (None Seen) Urine Comment Administered Medications Lactated Ringer's (Lr) 1,000 mls @ 80 mls/hr IV .[id number] HOA Stop: 02/07/25 09:29 Last Admin: 02/04/25 10:11 Dose: 80 mls/hr Documented By: nrs Morphine Sulfate (Morphine Sulfate 4 Mg/Ml 1 Ml Carp\\Vial) 4 mg IV Q3H PRN PRN Reason: Pain Stop: 02/18/25 09:31 Last Admin: 02/04/25 10:04 Dose: 4 mg Documented By: nrs Tamsulosin HCl (Tamsulosin Hcl 0.4 Mg Cap) 0.4 mg PO QAM HOA Stop: 03/06/25 09:59 Last Admin: 02/04/25 10:03 Dose: 0.4 mg Documented By: nrs Discontinued Medications Diatrizoate Meglumine (Diatrizoate Meglumine 30% 100ml Vial) 25 ml INSTIL ONCE ONE Stop: 02/04/25 13:45 Last Admin: 02/04/25 13:05 Dose: 25 ml Documented By: [id number] Sodium Chloride (Nss) 500 mls @ 999 mls/hr IV .Q31M ONE Stop: 02/04/25 08:23 Last Admin: 02/04/25 07:58 Dose: 999 mls/hr Documented By: nrs Cefazolin Sodium (Ancef 2000mg) 2,000 mg in 15 mls @ 3.75 mls/min IV PREOP ONE; Protocol Stop: 02/04/25 09:19 Last Admin: 02/04/25 10:05 Dose: 3.75 mls/min Documented By: nrs Morphine Sulfate (Morphine Sulfate 4 Mg/Ml 1 Ml Carp\\Vial) 4 mg IV NOW STA Stop: 02/04/25 07:04 Last Admin: 02/04/25 07:14 Dose: 4 mg Documented By: nrs Ondansetron HCl (Ondansetron Inj 2 Mg/Ml 2 Ml Vial) 4 mg IV NOW STA Stop: 02/04/25 07:04 Last Admin: 02/04/25 07:14 Dose: 4 mg Documented By: nrs Imaging Data Radiologist's Impression: Retrograde Pyelogram 02/04/25 00:00 FL retrograde includes kub CLINICAL HISTORY: ADD ON RETROGRADE COMPARISON STUDY: None FLUOROSCOPY TIME: 18 seconds FLUOROSCOPY IMAGES: 6 EXPOSURE DOSE: 4 mGy FINDINGS: Fluoroscopy was provided for urologic procedure. IMPRESSION: Intraoperative fluoroscopy. ACT 112: Negative or not required by law. Electronically signed by: Dwayne Velez M.D. 02/04/2025 1:42 PM Discharge Plan Visit Data Chief Complaint: Kidney Stone Stated Complaint: KIDNEY STONE? ED Provider: Jamil Doe Discharge Problem: Acute kidney injury superimposed on CKD, Kidney stone on left side Patient Disposition: Admitted As Inpatient Condition: Fair Discharge Instructions Interventions: ED Discharge Assessment Last Done: 02/04/25 12:03
[2025-02-04 07:10] LABS: Hematocrit (blood only) 45.4 % (42.0-52.0); Hemoglobin 15.3 g/dL (14.0-18.0); Immature Granulocytes # (auto) 0.05 K/uL (0.01-0.20); Immature Granulocytes % (auto) 0.4 %; Mean Corpuscular Hemoglobin 30.8 pg (25.0-34.0); Mean Corpuscular Volume 91.5 fL (80.0-100.0); Platelet Count 250 K/uL (130-400); RDW Standard Deviation 44.3 fL (36.4-46.3); Red Blood Count 4.96 M/uL (4.70-6.10); White Blood Count 12.06 K/ul (4.8-10.8)
[2025-02-04] MEDS: ONDANSETRON INJ 2 MG/ML 2 ML VIAL IV STA (07:14)
[2025-02-04] MEDS: MoRPHine SULFATE 4 MG/ML 1 ML CARP\\VIAL IV STA (07:14)
[2025-02-04 07:32] LABS: Alanine Aminotransferase 19.0 U/L (7-52); Albumin Globulin Ratio 1.6 (0.9-2); Albumin Level 4.7 gm/dl (3.4-5.0); Alkaline Phosphatase 121.0 U/L (34-104); Anion Gap 8.0 (3-11); Bilirubin,Total 0.9 mg/dl (0.2-1.0); Blood Urea Nitrogen 23.0 mg/dl (6-23); Calcium 9.9 mg/dl (8.6-10.3); Carbon Dioxide 28.0 mmol/L (21-32); Chloride 104.0 mmol/L (98-107); Creatinine Clr Calc Pharmacy 19.8 ml/min; Globulin 2.9 gm/dl (2.5-4.0); Glucose 119.0 mg/dl (70-99(Fasting)); Lipase 25.0 U/L (11-82); Potassium 4.0 mmol/L (3.5-5.1); Sodium 140.0 mmol/L (136-145); Total Protein 7.6 gm/dl (6.0-8.3)
[2025-02-04 07:57] LABS: Appearance Urine Clear (Clear); Bacteria Urine Automated None Seen (None Seen); Epithelial Cell Urine Auto 0-2 /hpf (0-2); Glucose Urine UA Negative (Negative); RBC Urine Automated 0-2 /hpf (0-2); WBC Urine Automated 0-5 /hpf (0-5)
[2025-02-04] MEDS: SODIUM CHLORIDE 0.9% 500 ML IV ONE (07:58)
--- NOTE | 2025-02-04 09:02 | Urology Consultation ---
Date of Consultation February 04, 2025 Assessment & Plan (1) Urolithiasis: (2) Hydronephrosis: 84-year-old male presented to the emergency department on 02/03/25 for left flank pain. CTAP demonstrated an obstructing 7 mm left ureteral stone. He was discharged for outpatient managment, but returned to the ED today due to ongoing left flank pain secondary to left ureteral calculus. Patient afebrile and hemodynamically stable Labs reviewedcreatinine increased to 2.42, WBC 12.06 Urinalysis was not suggestive of infection CTAP reviewed discussed with patientan obstructing 7 mm left ureteral stone We discussed options for stone management including surgical intervention with left ureteral stent placement today, stone treatment at a later date Given MG and recurrence of left flank pain, patient will proceed to OR for cystoscopy, left retrograde pyelogram, and left ureteral stent placement Risks and benefits of procedure to be reviewed with patient by Dr. Rodriguez prior to procedure Keep NPO for surgery Will cover with preoperative antibiotics Recommend admit patient to medicine service Continue supportive care and medical management per medicine service will continue to follow Plan Attending note: Patient independently assessed, examined, interviewed, and evaluated. Agree with note as above. Patient's vitals and labs were all reviewed. Pertinent values in the HPI and plan section. Imaging was reviewed interpreted by myself. Hemoglobin 15.3. Patient has significant obstructing stone in the left ureter causing hydronephrosis. Also developed significant MG. Patient has known chronic kidney disease but has considerably worsened over the last week. Agree with read. Vitals were reviewed. Discussed findings extensively with patient and family. Reviewed with nurse practitioner as well as consulting physicians/team. Patient's complicated medical and surgical history was reviewed and summarized above. Patient's surgical, medical, social, and family history were all reviewed with pertinent values as above. Discussed patient's current diagnosis as well as concerns and issues. Reviewed different options moving forward. Discussed potential risks and benefits as well as possible options and concerns. Reviewed potential surgical options and interventions. Discussed potential issues and concerns related to intervention. Risk and benefits were discussed extensively with patient and any available family. Discussed potential risks related to anesthesia. Discussed risks of bleeding infection and injury. Discussed options for conservative measure and maximum expulsion medical therapy and symptom controlled. Discussed ESWL. Discussed Ureteroscopy with extraction and/or laser lithotripsy. Risks and benefits were discussed. Stone free rates were also discussed as well as possibility of multiple procedures. Ureteral stents were discussed as well as post-operative issues and pain management. All questions were answered. Risks and benefits discussed at length for procedure. These include bleeding, infection, injury to surrounding tissues or organs, and risks associated with anesthesia. Patient states understanding and agrees to proceed. Will sign consent and proceed. Patient was agreeable to move forward. Will plan for cystoscopy with possible left stent. History of Present Illness Reason for Consultation: left ureteral stone Requesting Physician: Dr. Doe History of Present Illness 84-year-old male with a left-sided obstructing ureteral stone. Patient initially presented to the emergency department on 02/03/[address] scan was performed. CT showed an obstructing 7 mm left ureteral calculus. Labs showed creatinine 1.61, WBC 5.01, Hgb 15.7. Urinalysis showed 3+ blood, trace LE, >20 RBC. He was discharged from the ED for outpatient management. He returned to the ED today with ongoing left flank pain and nausea. Labs showed MG with creatinine of 2.42, white count 12.06. Urinalysis was not suggestive of infection. Urology is consulted for left ureteral stone. Patient seen and examined in the emergency department. Reports some ongoing left pain pain, but improved since arrival. Reports a history of kidney stones, but no prior intervention for stones. He was afebrile and hemodynamically stable in the ED. He is NPO. On eliquis. Allergies Allergy/AdvReac Type Severity Reaction Status Date / Time hydrochlorothiazide Allergy Severe Rash Verified 02/04/25 12:14 doxazosin Allergy Intermediate RASH, Verified 02/04/25 12:14 ITCHING oxaprozin Allergy Intermediate RASH, Verified 02/04/25 12:14 ITCHING mycophenolate mofetil AdvReac Severe "MAKES ME Verified 02/04/25 12:14 [From CellCept] EXTREMELY ILL" terazosin AdvReac Intermediate nervousness Verified 02/04/25 12:14 Home Medications Medication Instructions Recorded Confirmed Type multivitamin (Multiple Vitamins 1 tab PO QAM 03/21/18 02/04/25 History tablet) cholecalciferol (vitamin D3) 25 1,000 unit PO QAM 08/05/18 02/04/25 History mcg (1,000 unit) tablet pyridoxine (vitamin B6) 50 mg 50 mg PO QAM 08/05/18 02/04/25 History tablet atorvastatin 40 mg tablet 40 mg PO QAM 04/03/20 02/04/25 History losartan 100 mg tablet 100 mg PO QAM 11/27/20 02/04/25 History nitroglycerin 0.4 mg sublingual 0.4 mg sublingual Q5M PRN Chest 11/27/20 02/04/25 History tablet Pain finasteride 5 mg tablet 5 mg PO QAM #90 tabs 10/14/22 02/04/25 Rx calcium carbonate 500 mg PO QAM 05/15/23 02/04/25 History lidocaine 5 % topical patch 1 patch topical DAILY PRN pain #15 05/15/23 02/04/25 Rx ea omeprazole 40 mg capsule,delayed 40 mg PO QAM 05/26/23 02/04/25 History release diclofenac sodium 1 % topical gel 1 ea topical QID PRN Pain 06/15/23 02/04/25 History oxycodone 5 mg tablet 5 mg PO Q6H PRN pain #15 tabs 06/15/23 02/04/25 Rx acetaminophen 650 mg 650 mg PO Q8H PRN fever or pain 11/19/23 02/04/25 Rx tablet,extended release (Tylenol 8 #30 tabs Hour) amlodipine 5 mg tablet 5 mg PO DAILY 04/05/24 02/04/25 History amlodipine 2.5 mg tablet 2.5 mg PO DAILY 06/05/24 02/04/25 History apixaban 5 mg tablet (Eliquis) 2.5 mg PO BID 08/03/24 02/04/25 History gabapentin 300 mg capsule 300 mg PO BID #180 caps 10/02/24 02/04/25 Rx propranolol 20 mg tablet 20 mg PO BID #180 tabs 11/21/24 02/04/25 Rx Patient History Medical History Stage 3b chronic kidney disease Sensorineural hearing loss (SNHL) of right ear with restricted hearing of left ear Dyslipidemia BPH (benign prostatic hyperplasia) Osteoarthritis 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 Nephrolithiasis Hiatal hernia Ankylosing spondylitis Remotely diagnosed Chronic, constant back pain History of basal cell carcinoma Surgical History 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 S/P total hip arthroplasty Status post placement of cardiac pacemaker History of basal cell carcinoma (BCC) excision History of back surgery x 4 History of left shoulder replacement History of right shoulder replacement History of esophagogastroduodenoscopy (EGD) History of colonoscopy Family History Mother , Mother age 99 with hypertension and arthritis Osteoarthritis Cancer Hypertension Father , Father age 48 of an [place]. Myocardial infarction Other Family history non-contributory No family history of adverse response to anesthesia No family history of allergies No family history of bleeding disorder Denies family history of Hearing loss Heart disease Stroke Asthma Social History Smoking Status: Never smoker Second Hand Exposure: Yes ( smoked for 35 years per patient); Do You Dip or Chew Tobacco: No; Hx Alcohol Use: No Hx Substance Use: No Preferred Language: [place] Island[place] Communication Ability: Effective Visual Impairment: No Limitations Developer Architect Required: No Beliefs That Will Affect Care: None marital status: Current Living Situation: Family Current Living Situation Comment: Lives at home with daughter. 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 Feels Safe at Home: Yes Diet: regular Physical Activity Frequency: Does not Exercise Do you think of yourself as: straight/heterosexual Gender Identity: Male Assistive Devices: Glasses Review of Systems Review of Systems: All systems reviewed & are unremarkable except as noted in HPI & below Physical Exam Physical Exam: General: Alert and oriented x 3 in no acute distress. Advanced age HEENT: Normocephalic Atraumatic. Inspection normal. Cranial Nerves 2-12 Grossly intact. Nares are clear. Neck is supple. Normal inspection of face. Normal inspection of neck. Neurologic: No deficits on inspection. Baseline for motor function and sensory. Psychologic: Normal affect. Respiratory: Nonlabored. No use of accessory muscles. No tachypnea or dyspnea. Cardiovascular: No tachycardia Skin: [place] and Dry. No rashes or visible lesions. Extremities: Moving without issues. No motor deficits on inspection Lymphatics: No edema Abdomen: Soft Non-distended. No rebound or guarding. Constitutional: well developed and well nourished; no acute distress Respiratory: normal respiratory effort; no respiratory distress and no labored breathing Gastrointestinal (Abdomen): Inspection/Auscultation: abdomen normal to inspection Musculoskeletal: Head/Neck/Chest: normocephalic Neurologic: moves all extremities and awake Psychiatric: Orientation: alert and oriented x 3 Results & Data Vital Signs (Past 12 Hours) Vital Signs Temp Pulse Pulse Resp BP BP Pulse Ox 02/04/25 08:11 77 02/04/25 07:56 80 18 132/77 94 02/04/25 07:50 74 15 96 02/04/25 07:41 80 17 95 02/04/25 07:32 76 18 95 02/04/25 07:30 132/77 02/04/25 07:30 132/77 02/04/25 07:30 132/77 02/04/25 07:30 132/77 02/04/25 07:30 132/77 02/04/25 07:29 77 20 93 02/04/25 07:20 79 20 90 02/04/25 07:11 79 20 94 02/04/25 07:05 79 18 94 02/04/25 07:02 81 15 94 02/04/25 07:00 145/95 H 02/04/25 07:00 145/95 H 02/04/25 07:00 145/95 H 02/04/25 07:00 145/95 H 02/04/25 07:00 145/95 H 02/04/25 06:59 86 13 145/93 H 94 02/04/25 06:58 84 20 171/93 H 96 02/04/25 06:57 171/93 H 02/04/25 06:56 85 20 02/04/25 06:44 36.8 C 85 18 127/81 92 O2 Del Method O2 Flow Rate 02/04/25 08:11 02/04/25 07:56 Nasal Cannula 2 02/04/25 07:50 02/04/25 07:41 02/04/25 07:32 02/04/25 07:30 02/04/25 07:30 02/04/25 07:30 02/04/25 07:30 02/04/25 07:30 02/04/25 07:29 02/04/25 07:20 02/04/25 07:11 02/04/25 07:05 Room Air 02/04/25 07:02 02/04/25 07:00 02/04/25 07:00 02/04/25 07:00 02/04/25 07:00 02/04/25 07:00 02/04/25 06:59 02/04/25 06:58 Room Air 02/04/25 06:57 02/04/25 06:56 02/04/25 06:44 Room Air PG Care Time/CCT Total # of Minutes Spent Total Time Spent with Patient: Total time spent is greater than 50% in coordination of care (as documented) at patient's floor/unit and/or counseling patient: Coding Level of Care Code 84133 INT INP/OBS CARE MIN Diagnoses Urolithiasis N20.9 Hydronephrosis N13.30
[2025-02-04] MEDS: TAMSULOSIN HCL 0.4 MG CAP PO SCH (10:03)
[2025-02-04] MEDS: MoRPHine SULFATE 4 MG/ML 1 ML CARP\\VIAL IV PRN (10:04)
[2025-02-04] MEDS: LACTATED RINGER'S 1,000 ML IV SCH (10:11)
--- NOTE | 2025-02-04 10:35 | History & Physical Report ---
<Statement entered by Kandis Black MD - 02/04/25 19:13> I have reviewed vital signs, chart notes, labs and imaging. I have personally seen, evaluated and examined the patient. I have also discussed the management of the patient with the NALDO and I agree with the exam findings documented in the history and physical examination and the documented assessment and plan unless otherwise stated below. I saw Agustin postop and he's doing well, I explained procedural findings and plan of care. No pain or nausea. AOx4. Has bloody output from linda but only small clots and free flow of urine. Abdomen nontender. 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 CT abdomen pelvis revealed centimeter #Left kidney stone with hydronephrosis | MG on CKD 3 | BPH Urology consultedplan for OR for stent placement in 02/04 UA does not appear infected, does have mild leukocytosis (12) compared to 02/03. Defer antibiotics for now, leukocytosis could be contributed to vomiting. Patient will receive perioperative antibiotics will trend and monitor fever curve Creatinine 2.42 on admission with baseline ~ 1.5-1.6. 500 cc bolus given in ED, continued maintenance fluids Flomax daily. 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 Was seen in the ER yesterday, 02/03 and discharged home with oxycodone and Zofran. Overnight the pain got worse not controlled with oxycodone. He did vomit this morning. He did not take his meds this morning. Denies fevers or chills at home. He is still able to urinate. We discussed his elevated kidney function. He has already seen urology at the time of my interview this morning and the plan is for the OR this afternoon. His daughter is present at bedside. He confirms that he is a full code. ED course: IV fluids 500 cc Zofran 4 mg IV x 1 Morphine 4 mg IV x 1 Allergies Allergy/AdvReac Type Severity Reaction Status Date / Time hydrochlorothiazide Allergy Severe Rash Verified 12/21/24 10:44 doxazosin Allergy Intermediate RASH, Verified 12/21/24 10:44 ITCHING oxaprozin Allergy Intermediate RASH, Verified 12/21/24 10:44 ITCHING mycophenolate mofetil AdvReac Severe "MAKES ME Verified 12/21/24 10:44 [From CellCept] EXTREMELY ILL" terazosin AdvReac Intermediate nervousness Verified 12/21/24 10:44 Home Medications Medication Instructions Recorded Confirmed Type multivitamin (Multiple Vitamins 1 tab PO QAM 03/21/18 02/04/25 History tablet) cholecalciferol (vitamin D3) 25 1,000 unit PO QAM 08/05/18 02/04/25 History mcg (1,000 unit) tablet pyridoxine (vitamin B6) 50 mg 50 mg PO QAM 08/05/18 02/04/25 History tablet atorvastatin 40 mg tablet 40 mg PO QAM 04/03/20 02/04/25 History losartan 100 mg tablet 100 mg PO QAM 11/27/20 02/04/25 History nitroglycerin 0.4 mg sublingual 0.4 mg sublingual Q5M PRN Chest 11/27/20 02/04/25 History tablet Pain finasteride 5 mg tablet 5 mg PO QAM #90 tabs 10/14/22 02/04/25 Rx calcium carbonate 500 mg PO QAM 05/15/23 02/04/25 History lidocaine 5 % topical patch 1 patch topical DAILY PRN pain #15 05/15/23 02/04/25 Rx ea omeprazole 40 mg capsule,delayed 40 mg PO QAM 05/26/23 02/04/25 History release diclofenac sodium 1 % topical gel 1 ea topical QID PRN Pain 06/15/23 02/04/25 History oxycodone 5 mg tablet 5 mg PO Q6H PRN pain #15 tabs 06/15/23 02/04/25 Rx acetaminophen 650 mg 650 mg PO Q8H PRN fever or pain 11/19/23 02/04/25 Rx tablet,extended release (Tylenol 8 #30 tabs Hour) amlodipine 5 mg tablet 5 mg PO DAILY 04/05/24 02/04/25 History amlodipine 2.5 mg tablet 2.5 mg PO DAILY 06/05/24 02/04/25 History apixaban 5 mg tablet (Eliquis) 2.5 mg PO BID 08/03/24 02/04/25 History gabapentin 300 mg capsule 300 mg PO BID #180 caps 10/02/24 02/04/25 Rx propranolol 20 mg tablet 20 mg PO BID #180 tabs 11/21/24 02/04/25 Rx Past Med/Surg History Problem List (Updated 02/04/25 @ 10:46 by Tawana Urbina PA-C) Hydronephrosis (Acute) CKD (chronic kidney disease) (Acute) Urolithiasis (Acute) Cervical dystonia Essential tremor Hands Chronic anticoagulation Cervical paraspinal muscle spasm Myofascial pain History of total replacement of right shoulder joint MG (acute kidney injury) Acquired occlusion of inferior vena cava (Acute) Neck pain Back pain (Acute) Iliopsoas muscle hematoma Pulmonary embolism (Acute) Cervical facet joint syndrome Urinary retention Degenerative joint disease of cervical spine HTN (hypertension) (Chronic) Chronic back pain Lumbar stenosis Syncope (Acute) Disc degeneration, lumbar (Acute) Arthritis (Acute) Actinic keratosis (Acute) Asymmetric SNHL (sensorineural hearing loss) Thoracic facet syndrome Erectile dysfunction Proteinuria Osteoarthritis Vitamin D deficiency AVB (atrioventricular block) Medical History (Updated 02/04/25 @ 10:46 by Tawana Urbina PA-C) Stage 3b chronic kidney disease Sensorineural hearing loss (SNHL) of right ear with restricted hearing of left ear Dyslipidemia BPH (benign prostatic hyperplasia) Osteoarthritis 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 Nephrolithiasis Hiatal hernia Ankylosing spondylitis Remotely diagnosed Chronic, constant back pain History of basal cell carcinoma Surgical History (Updated 02/04/25 @ 10:46 by Tawana Urbina PA-C) 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 S/P total hip arthroplasty Status post placement of cardiac pacemaker History of basal cell carcinoma (BCC) excision History of back surgery x 4 History of left shoulder replacement History of right shoulder replacement History of esophagogastroduodenoscopy (EGD) History of colonoscopy Family History Mother , Mother age 99 with hypertension and arthritis Osteoarthritis Cancer Hypertension Father , Father age 48 of an [place]. Myocardial infarction Other Family history non-contributory No family history of adverse response to anesthesia No family history of allergies No family history of bleeding disorder Denies family history of Hearing loss Heart disease Stroke Asthma Social History Smoking Status: Never smoker Second Hand Exposure: Yes ( smoked for 35 years per patient); Do You Dip or Chew Tobacco: No; Hx Alcohol Use: No Hx Substance Use: No Preferred Language: [place]er Communication Ability: Effective Visual Impairment: No Limitations Ultrasound Tester Required: No Beliefs That Will Affect Care: None marital status: Current Living Situation: Family Current Living Situation Comment: Lives at home with daughter. 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 Feels Safe at Home: Yes Diet: regular Physical Activity Frequency: Does not Exercise Do you think of yourself as: straight/heterosexual Gender Identity: Male Assistive Devices: Glasses Review of Systems Review of Systems: All systems reviewed & are unremarkable except as noted in Subjective Physical Exam Physical Exam: General: NAD, VS as above, lying in bed appears uncomfortable Resp: normal respiratory effort, lungs clear to auscultation CV: RRR, no murmur, Abd: normal bowel sounds, non tender, soft Extremities: Moves all extremities, no edema Neuro: A&O x3, Skin: intact, no lesions noted Results & Data Results & Data Vital Signs (Past 12 Hours) Vital Signs Temp Pulse Pulse Resp BP BP Pulse Ox 02/04/25 08:11 77 02/04/25 07:56 80 18 132/77 94 02/04/25 07:50 74 15 96 11/17/25 07:41 80 17 95 02/04/25 07:32 76 18 95 02/04/25 07:30 132/77 02/04/25 07:30 132/77 02/04/25 07:30 132/77 02/04/25 07:30 132/77 02/04/25 07:30 132/77 02/04/25 07:29 77 20 93 02/04/25 07:20 79 20 90 02/04/25 07:11 79 20 94 02/04/25 07:05 79 18 94 02/04/25 07:02 81 15 94 02/04/25 07:00 145/95 H 02/04/25 07:00 145/95 H 02/04/25 07:00 145/95 H 02/04/25 07:00 145/95 H 02/04/25 07:00 145/95 H 02/04/25 06:59 86 13 145/93 H 94 02/04/25 06:58 84 20 171/93 H 96 02/04/25 06:57 171/93 H 02/04/25 06:56 85 20 02/04/25 06:44 98.2 F 85 18 127/81 92 O2 Del Method O2 Flow Rate 02/04/25 08:11 02/04/25 07:56 Nasal Cannula 2 02/04/25 07:50 02/04/25 07:41 02/04/25 07:32 02/04/25 07:30 02/04/25 07:30 02/04/25 07:30 02/04/25 07:30 02/04/25 07:30 02/04/25 07:29 02/04/25 07:20 02/04/25 07:11 02/04/25 07:05 Room Air 02/04/25 07:02 02/04/25 07:00 02/04/25 07:00 02/04/25 07:00 02/04/25 07:00 02/04/25 07:00 02/04/25 06:59 02/04/25 06:58 Room Air 02/04/25 06:57 02/04/25 06:56 02/04/25 06:44 Room Air Laboratory Results CBC chemistry reviewed UA reviewed Diagnostic Findings CT abdomen pelvis on 11/16 reviewed Code Status & VTE Plan VTE Prophylaxis Plan VTE Prophylaxis will be ordered: Yes PG Care Time/CCT Total # of Minutes Spent Total Time Spent with Patient: Total time spent is greater than 50% in coordination of care (as documented) at patient's floor/unit and/or counseling patient: Coding Level of Care Code 70952 INT INP/OBS CARE 3/75MIN Diagnoses Nephrolithiasis N20.0 Hydronephrosis N13.30 MG (acute kidney injury) N17.9 HTN (hypertension) I10
[2025-02-04] MEDS ORDERED: DEXAMETHASONE SOD INJ 4 MG/ML VIAL ONE (12:03)
[2025-02-04] MEDS ORDERED: PROPOFOL IV EMULSION 10 MG/ML 20 ML VIAL IV ONE ×3 (12:03→12:46)
[2025-02-04] MEDS ORDERED: ONDANSETRON INJ 2 MG/ML 2 ML VIAL ONE (12:03)
[2025-02-04] MEDS ORDERED: LIDOCAINE 2% 2 ML VIAL/AMP(20MG/ML) INFIL ONE (12:03)
[2025-02-04] MEDS ORDERED: ONDANSETRON INJ 2 MG/ML 2 ML VIAL IV PRN ×2 (12:55→15:04)
[2025-02-04] MEDS ORDERED: ATROPINE SULFATE 0.1 MG/ML 10ML SYR IV PRN (12:55)
--- NOTE | 2025-02-04 12:55 | Anesthesiology Consultation ---
Date of Service February 04, 2025 Assessment & Plan Chart Review Chart Review: Acceptable Risk for Surgery Consults Requested none ASA ASA2 Proposed Anesthesia Anesthesia Type: MAC History Surgery Operation Date: 02/04/25 14:10 Proposed Procedures p Cystoscopy, Left Ureteral Stent Placement - Tonio Rodriguez, DO Height/Weight Height: 5 ft 5 in Weight: 70.8 kg Allergies Allergy/AdvReac Type Severity Reaction Status Date / Time hydrochlorothiazide Allergy Severe Rash Verified 02/04/25 12:14 doxazosin Allergy Intermediate RASH, Verified 02/04/25 12:14 ITCHING oxaprozin Allergy Intermediate RASH, Verified 02/04/25 12:14 ITCHING mycophenolate mofetil AdvReac Severe "MAKES ME Verified 02/04/25 12:14 [From CellCept] EXTREMELY ILL" terazosin AdvReac Intermediate nervousness Verified 02/04/25 12:14 Medications Home Medications Medication Instructions Recorded Confirmed Last Taken multivitamin (Multiple Vitamins 1 tab PO QAM 03/21/18 02/04/25 11/08/23 tablet) cholecalciferol (vitamin D3) 25 1,000 unit PO QAM 08/05/18 02/04/25 11/08/23 mcg (1,000 unit) tablet pyridoxine (vitamin B6) 50 mg 50 mg PO QAM 08/05/18 02/04/25 11/08/23 tablet atorvastatin 40 mg tablet 40 mg PO QAM 04/03/20 02/04/25 11/08/23 losartan 100 mg tablet 100 mg PO QAM 11/27/20 02/04/25 11/08/23 nitroglycerin 0.4 mg sublingual 0.4 mg sublingual Q5M PRN Chest 11/27/20 02/04/25 05/15/23 tablet Pain finasteride 5 mg tablet 5 mg PO QAM #90 tabs 10/14/22 02/04/25 11/08/23 calcium carbonate 500 mg PO QAM 05/15/23 02/04/25 11/08/23 lidocaine 5 % topical patch 1 patch topical DAILY PRN pain #15 05/15/23 02/04/25 Unknown ea omeprazole 40 mg capsule,delayed 40 mg PO QAM 05/26/23 02/04/25 11/08/23 release diclofenac sodium 1 % topical gel 1 ea topical QID PRN Pain 06/15/23 02/04/25 Unknown oxycodone 5 mg tablet 5 mg PO Q6H PRN pain #15 tabs 06/15/23 02/04/25 Unknown acetaminophen 650 mg 650 mg PO Q8H PRN fever or pain 11/19/23 02/04/25 Unknown tablet,extended release (Tylenol 8 #30 tabs Hour) amlodipine 5 mg tablet 5 mg PO DAILY 04/05/24 02/04/25 Unknown amlodipine 2.5 mg tablet 2.5 mg PO DAILY 06/05/24 02/04/25 Unknown apixaban 5 mg tablet (Eliquis) 2.5 mg PO BID 08/03/24 02/04/25 Unknown gabapentin 300 mg capsule 300 mg PO BID #180 caps 10/02/24 02/04/25 Unknown propranolol 20 mg tablet 20 mg PO BID #180 tabs 11/21/24 02/04/25 Unknown Active Medications Generic Name Dose Route Start Last Admin Trade Name Freq PRN Reason Stop Dose Admin Lactated Ringer's 1,000 mls @ 80 mls/hr 02/04/25 09:30 02/04/25 10:11 Lr IV 02/07/25 09:29 80 mls/hr .[id number] HOA Administration Morphine Sulfate 4 mg 02/04/25 09:32 02/04/25 10:04 Morphine Sulfate 4 Mg/Ml 1 Ml Carp\\Vial IV 02/18/25 09:31 4 mg Q3H PRN Administration Pain Tamsulosin HCl 0.4 mg 02/04/25 10:00 02/04/25 10:03 Tamsulosin Hcl 0.4 Mg Cap PO 03/06/25 09:59 0.4 mg QAM HOA Administration NPO Date Last Intake of Fluids: 02/03/25 Time Last Intake of Fluids: 20:00 Date Last Intake of Solids: 02/03/25 Time Last Intake of Solids: 17:30 Past Medical History Medical History Stage 3b chronic kidney disease Sensorineural hearing loss (SNHL) of right ear with restricted hearing of left ear Dyslipidemia BPH (benign prostatic hyperplasia) Osteoarthritis 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 Myocardial infarction Other Family history non-contributory No family history of adverse response to anesthesia No family history of allergies No family history of bleeding disorder Denies family history of Hearing loss Heart disease Stroke Asthma Past Surgical History Surgical History 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 S/P total hip arthroplasty Status post placement of cardiac pacemaker History of basal cell carcinoma (BCC) excision History of back surgery x 4 History of left shoulder replacement History of right shoulder replacement History of esophagogastroduodenoscopy (EGD) History of colonoscopy Social History Smoking Status: Never smoker Do You Dip or Chew Tobacco: No Hx Alcohol Use: No Alcohol type: wine alcohol intake frequency: holidays/special occasions only Hx Substance Use: No substance use type: does not use Physical Exam Vital Signs Last Vital Signs Temp 37.3 C 02/04/25 12:08 Pulse 86 02/04/25 12:08 Resp 20 02/04/25 12:08 BP 114/78 02/04/25 12:08 Pulse Ox 96 02/04/25 12:08 O2 Del Method Room Air 02/04/25 12:08 O2 Flow Rate 2 02/04/25 07:56 Constitutional no acute distress ENMT Mouth: + edentulous Thyromental Distance: > or= 3.5 Finger Breadths Mallampati Class: II Neck normal visual inspection Respiratory normal respiratory effort Auscultation: lungs clear to auscultation bilaterally Cardiovascular Rate/Rhythm: regular rate and regular rhythm Chest (Breasts) Chest: + pacemaker Neurologic moves all extremities Psychiatric Orientation: alert and oriented x 3 Testing Laboratory Results 02/04/25 06:33 02/04/25 06:33 Urine Color Yellow 02/04/25 06:52 Urine Appearance Clear (Clear) 02/04/25 06:52 Urine pH 5.0 (4.5-7.5) 02/04/25 06:52 Ur Specific [place] > 1.045 (1.000-1.030) H 02/04/25 06:52 Urine Protein 1+ (Negative) H 02/04/25 06:52 Urine Glucose (UA) Negative (Negative) 02/04/25 06:52 Urine Ketones Trace (Negative) H 02/04/25 06:52 Urine Nitrite Negative (Negative) 02/04/25 06:52 Ur Leukocyte Esterase Negative (Negative) 02/04/25 06:52 Urine WBC (Auto) 0-5 /hpf (0-5) 02/04/25 06:52 Urine RBC (Auto) 0-2 /hpf (0-2) 02/04/25 06:52 U Hyaline Cast (Auto) 3-5 /lpf (0-2) H 02/04/25 06:52 U Epithel Cells (Auto) 0-2 /hpf (0-2) 02/04/25 06:52 Urine Bacteria (Auto) None Seen (None Seen) 02/04/25 06:52
[2025-02-04] MEDS: DIATRIZOATE MEGLUMINE 30% 100ML VIAL INSTIL ONE (13:05)
[2025-02-04] MEDS ORDERED: PHENYLEPHRINE 100MCG/ML 5ML SYR ONE (13:11)
--- NOTE | 2025-02-04 13:25 | Operative Report ---
[facility] Post Operative Report Pre & Post Diagnosis Left obstructing stone Same Operation Date: 02/04/25 14:10 <No data on this case meets the specified criteria> I identified the patient and participated in the time-out.: Yes Procedure Operation Date: 02/04/25 14:10 Actual Procedures p Cystoscopy with urethral dilation Left retrograde pyelogram, left ureteral dilation, left Ureteral Stent Place ment(Left) - Tonio Rodriguez, Surgeon Tonio Rodriguez, II, DO Top Bottom Attaching Machine Operator None Estimated Blood Loss 1 Findings Consistent with Post-Op Diagnosis Pinpoint stricture of the bulbar urethra. Stricture dilated. Very large prostate with trabeculation. 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 Left stent placed in good position. Specimens None Drains 6 Fr Multilength 20 Iraqi coud catheter Anesthesia Type MAC Complications none Disposition Disposition: Recovery Room Indications Patient with obstruction. Risks and benefits discussed at length. Description of Procedure Patient was consented and brought back to the operating room. Patient was placed under anesthesia in the supine position and moved to the dorsal lithotomy position. Patient was prepped and draped in the regular sterile fashion. A time out was completed. A 30degree Cystoscope was placed into the urethra. Advancing towards the bladder a severe stricture was noted in the bulbar urethra. Utilizing a wire the area was sequentially dilated and the scope was able to advance. The area of dilation was inspected. No significant injury or tearing. No major abnormality. The scope was able advance into the Bladder and the entire bladder was examined. The UO's were identified. The UO was cannulized with a catheter and a retrograde pyelogram was completed. The distal ureter on the left was found to be extremely narrow. The 5 Iraqi open-ended catheter had a hard time entering the area. The taper end of the dual-lumen catheter was utilized and the wire was then placed. The area was then dilated up to 10 Iraqi over the wire. With the wire in place, a 6 Fr Double J stent was placed. It was confirmed with fluoroscopy. With the stent in place, the bladder was emptied. The scope was removed. The patient was cleaned, aroused from anesthesia, and transferred to the pacu in stable conditi on having tolerated the procedure well with no complications. I was present and participated in all aspects of the procedure. The patient will be monitored in the PACU until transferred. Plan to maintain stent for approximately 1 to 2 weeks. Will monitor MG. Will likely maintain catheter over the next 3 to 5 days. Can attempt catheter removal while hospitalized or in office. Will plan to set up stone treatment at time of reassessment of the stent. I attest to the content of the Intraoperative Record and any orders documented therein. Any exceptions are noted below.
--- NOTE | 2025-02-04 13:44 | Fluoroscopy Report ---
FL retrograde includes kub CLINICAL HISTORY: ADD ON RETROGRADE COMPARISON STUDY: None FLUOROSCOPY TIME: 18 seconds FLUOROSCOPY IMAGES: 6 EXPOSURE DOSE: 4 mGy FINDINGS: Fluoroscopy was provided for urologic procedure. IMPRESSION: Intraoperative fluoroscopy. ACT 112: Negative or not required by law. Electronically signed by: Dwayne Velez M.D. 02/04/2025 1:42 PM
--- NOTE | 2025-02-04 14:00 | Anesthesiology Progress Note ---
Date of Service February 04, 2025 Anesthesia Post Procedure Vital Signs Vital Signs: Temp Pulse Pulse Resp BP BP Pulse Ox 02/04/25 13:55 37.0 C 79 16 133/75 96 02/04/25 13:45 79 19 129/81 96 02/04/25 13:35 80 19 129/75 91 02/04/25 13:28 37.4 C 79 18 124/72 92 02/04/25 12:08 37.3 C 86 20 114/78 96 02/04/25 11:00 81 18 116/79 96 02/04/25 09:00 87 16 111/75 94 02/04/25 08:11 77 02/04/25 07:56 80 18 132/77 94 02/04/25 07:50 74 15 96 02/04/25 07:41 80 17 95 02/04/25 07:32 76 18 95 02/04/25 07:30 132/77 02/04/25 07:30 132/77 02/04/25 07:30 132/77 02/04/25 07:30 132/77 02/04/25 07:30 132/77 02/04/25 07:29 77 20 93 02/04/25 07:20 79 20 90 02/04/25 07:11 79 20 94 02/04/25 07:05 79 18 94 02/04/25 07:02 81 15 94 02/04/25 07:00 145/95 H 02/04/25 07:00 145/95 H 02/04/25 07:00 145/95 H 02/04/25 07:00 145/95 H 02/04/25 07:00 145/95 H 02/04/25 06:59 86 13 145/93 H 94 02/04/25 06:58 84 20 171/93 H 96 02/04/25 06:57 171/93 H 02/04/25 06:56 85 20 02/04/25 06:44 36.8 C 85 18 127/81 92 O2 Del Method O2 Flow Rate 02/04/25 13:55 Nasal Cannula 2 02/04/25 13:45 Nasal Cannula 2 02/04/25 13:35 Nasal Cannula 2 02/04/25 13:28 Room Air 02/04/25 12:08 Room Air 02/04/25 11:00 Room Air 02/04/25 09:00 Room Air 02/04/25 08:11 02/04/25 07:56 Nasal Cannula 2 02/04/25 07:50 02/04/25 07:41 02/04/25 07:32 02/04/25 07:30 02/04/25 07:30 02/04/25 07:30 02/04/25 07:30 02/04/25 07:30 02/04/25 07:29 02/04/25 07:20 02/04/25 07:11 02/04/25 07:05 Room Air 02/04/25 07:02 02/04/25 07:00 02/04/25 07:00 02/04/25 07:00 02/04/25 07:00 02/04/25 07:00 02/04/25 06:59 02/04/25 06:58 Room Air 02/04/25 06:57 02/04/25 06:56 02/04/25 06:44 Room Air Pain Intensity Penis: Pain Intensity: 2 Transfer of Care Handoff Completed per policy Notes Mental Status: alert / awake / arousable Patient Amnestic to Procedure: Yes Nausea / Vomiting: adequately controlled Pain: adequately controlled Airway Patency, RR, SpO2: stable & adequate BP & HR: stable & adequate Hydration State: stable & adequate Anesthetic Complications: no major complications apparent
[2025-02-04] MEDS ORDERED: ACETAMINOPHEN 325 MG TAB PO PRN (15:04)
[2025-02-04] MEDS: PROPRANOLOL HCL 20 MG TAB PO SCH (20:53)
[2025-02-04] MEDS: GABAPENTIN 300 MG CAP PO SCH (20:54)
[2025-02-05 07:25] VITALS: TEMP 98.4
[2025-02-05 07:48] LABS: Anion Gap 6.0 (3-11); Blood Urea Nitrogen 24.0 mg/dl (6-23); Calcium 9.0 mg/dl (8.6-10.3); Carbon Dioxide 26.0 mmol/L (21-32); Chloride 107.0 mmol/L (98-107); Creatinine Clr Calc Pharmacy 24.3 ml/min; Glucose 99.0 mg/dl (70-99(Fasting)); Potassium 4.0 mmol/L (3.5-5.1); Sodium 139.0 mmol/L (136-145)
[2025-02-05 08:41] LABS: Hematocrit (blood only) 36.4 % (42.0-52.0); Hemoglobin 12.3 g/dL (14.0-18.0); Mean Corpuscular Hemoglobin 30.8 pg (25.0-34.0); Mean Corpuscular Volume 91.2 fL (80.0-100.0); Platelet Count 161 K/uL (130-400); RDW Standard Deviation 43.6 fL (36.4-46.3); Red Blood Count 3.99 M/uL (4.70-6.10); White Blood Count 6.94 K/ul (4.8-10.8)
--- NOTE | 2025-02-05 08:49 | Urology Progress Note ---
Date of Service February 05, 2025 Assessment & Plan (1) Urolithiasis: (2) Hydronephrosis: (3) Acute kidney injury superimposed on CKD: Plan: - Pt POD#1 s/p cystoscopy and left ureteral stent placement - Doing well, progressing as expected - Afebrile, lab work reviewed - creatinine downtrending1.97 today, WBC 6.94 - Tolerating left ureteral stent with minimal bother - Okay to d/c from perspective when medically stable - Recommend d/c with course of Tamsulosin and prn pain medication for stent management - Plan to maintain Acevedo catheter 3-[address] Rodriguez, can be removed in office if he is discharged - Expected clinical course reviewed, all questions answered - Will arrange outpatient follow-up with our service to set up definitive stone treatment - will sign off, please contact her service with any additional questions or concerns Admission and Anticipated Discharge Date Admission Date: February 04, 2025 Subjective Patient seen and examined at bedside this morning. He is awake and sitting up in bedside chair. No acute issues overnight. Reports mild left flank discomfort intermittently. Acevedo intact, urine clear with minimal hematuria. No fever or chills. No nausea or vomiting. Review of Systems Constitutional: as per Subjective / HPI Genitourinary: + as per Subjective / HPI Physical Exam Constitutional: well developed and well nourished; no acute distress Respiratory: normal respiratory effort; no respiratory distress and no labored breathing Gastrointestinal (Abdomen): Inspection/Auscultation: abdomen normal to inspection Musculoskeletal: Head/Neck/Chest: normocephalic Neurologic: moves all extremities and awake Psychiatric: Orientation: alert and oriented x 3 Results & Data Vital Signs (Past 12 Hours) Vital Signs Temp Pulse Resp BP Pulse Ox O2 Del Method 02/05/25 07:24 36.9 C 91 H 16 127/74 90 Room Air 02/05/25 03:25 37.0 C 81 18 110/69 93 Room Air 02/04/25 23:38 37.6 C H 89 18 100/65 91 Room Air 02/04/25 20:48 88 16 98/63 L 93 Room Air PG Care Time/CCT Total # of Minutes Spent Total Time Spent with Patient: Total time spent is greater than 50% in coordination of care (as documented) at patient's floor/unit and/or counseling patient: Coding Level of Care Code 73107 SUB INP/OBS CARE MIN Diagnoses Urolithiasis N20.9 Hydronephrosis N13.30 Acute kidney injury superimposed on CKD N17.9; N18.9
[2025-02-05] MEDS: FINASTERIDE 5 MG TAB PO SCH (09:23)
[2025-02-05] MEDS: ATORVASTATIN 40 MG TAB PO SCH (09:23)
[2025-02-05] MEDS: APIXABAN 2.5 MG TAB PO SCH (10:00)
[2025-02-05 10:59] VITALS: BP 117/71; PULSE 91; RESP 18; O2SAT 92
--- NOTE | 2025-02-05 12:33 | Discharge Summary ---
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 CT abdomen pelvis revealed 7mm kidney stone. Urology was consulted and taken to the OR for stent placement on 02/04. Found to have a severe stricture of the bulbar urethra and very narrowed distal ureter. No signs of infection but was recommended for Acevedo treatment main in place. MG is improving but not yet back to baseline but appetite is resolved and he was still receiving IV fluids. Will continue to hold losartan on discharge until confirmation that MG is completely resolved. Flomax prescription was sent as well as oxybutynin as needed. #hypertension - Continue amlodipine and propranolol. Hold losartan in the setting of MG #HLDcontinue statin #history of DVT/PE - Continue to Eliquis dispo: discharged home with close urology follow-up. 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 Was seen in the ER yesterday, 02/03 and discharged home with oxycodone and Zofran. Overnight the pain got worse not controlled with oxycodone. He did vomit this morning. He did not take his meds this morning. Denies fevers or chills at home. He is still able to urinate. We discussed his elevated kidney function. He has already seen urology at the time of my interview this morning and the [facility] is for the OR this afternoon. His daughter is present at bedside. He confirms that he is a full code. ED course: IV fluids 500 cc Zofran 4 mg IV x 1 Morphine 4 mg IV x 1 Discharge Exam General: NAD, VS as above Resp: normal respiratory effort, lungs clear to auscultation CV: RRR, no murmur, Abd: normal bowel sounds, non tender, soft Extremities: Moves all extremities, chronic cyst to left hand Neuro: A&O x3, Discharge Plan Discharge Items Patient Disposition: Home - Self-Care Reason For Visit: KIDNEY STONE, MG Discharge Diagnosis: Kidney stone, MG Condition on Discharge: Fair Activity: Resume your previous activity Weightbearing: Full weightbearing Non-emergency contact: Primary Care Provider and Urologist Call non-emergency contact if: you have any medication questions, your symptoms worsen and your temperature is above 101 Follow-up/Referrals: Irina Randolph CRNP [Nurse Practitioner] - 02/11/25 3:30 pm Griffin Meraz [Primary Care Provider] - 02/22/25 9:45 am (Follow up within one week ) cSot Fonseca MD [Physician] - 02/08/25 10:45 am (Catheter removal) Diet: Regular Addtl Attending Provider Instructions: Mr. Wiggins, You were hospitalized after having pain found to be from kidney stones. You were seen by urology and taken to the OR to have a stent placed on 02/[address] Rodriguez. You will need to follow up with urology for stent removal. Medication Changes/Recommendations: * Continue flomax daily while stent in place - this is to help with easier passage of urine * oxybutyin - as needed for spasms from stent in place * Pain control - tylenol, home oxycodone It is normal to still have discomfort in the flank area while the stent is in place, this pain may be worse with movement. Blood tinged urine can also be common. If you are having persistent dark bloody urine or thick bloody urine for >8 hours please contact your urologist. It is important that you are staying hydrated while the stent is in place. The urology office should be contacting you to schedule and appointment. If you do not hear from them by Tuesday please contact them at [phone] Please contact the urologist if you have any uncontrolled pain, fevers > 100F, or inability to urinate. Your kidney function is still improving so it is very important that you are staying extra hydrated over the next few days. Recommend repeat labs with your PCP in a week. Also please do not take your losartan until you know that your kidney function is back to normal. If you feel like headed or dizzy while moving around - your blood pressure may be low. You may need to decrease your amlodipine dose. Activity: You can do normal everyday activities as your body allows. Take rest breaks if you feel tired. Do not overexert. Stop activity if you have pain, shortness of breath or feel dizzy. Follow-up appointments: Make an appointment with your primary care physician within one week of discharge. A copy of this summary will be sent to them. Every time you see your primary care physician, or any other doctor, bring your medication list, and a list of questions. CONTACT YOUR PRIMARY CARE PROVIDER if you experience any of the following: Shortness of breath or difficulty breathing Fevers or chills Feeling tired with normal activity or experiencing dizziness or fainting Difficulty following your treatment plan, or difficulty taking medications CALL 911 OR GO TO THE EMERGENCY DEPARTMENT if you experience any of the following: Severe abdominal pain or nausea/vomiting Severe chest pain, or chest pain that radiates (moves) to your jaw or arm Sudden, severe shortness of breath or difficulty breathing Thank you for allowing us to participate in your care. Pending Studies at Discharge: No Stand-Alone Forms: [facility], Smoking Cessation Medications and DC Order Prescriptions: New tamsulosin 0.4 mg Capsule 0.4 mg PO QAM Qty: 30 0RF oxybutynin chloride 5 mg tablet 5 mg PO BID PRN (Reason: ureteral spasms) Qty: 20 0RF Continued amlodipine 2.5 mg tablet 2.5 mg PO DAILY Eliquis 5 mg tablet 2.5 mg PO BID propranolol 20 mg tablet 20 mg PO BID Qty: 180 2RF finasteride 5 mg tablet 5 mg PO QAM Qty: 90 3RF nitroglycerin 0.4 mg tablet, sublingual 0.4 mg sublingual Q5M PRN (Reason: Chest Pain) Rx Instructions: do not exceed 3 doses per episode atorvastatin 40 mg tablet 40 mg PO QAM gabapentin 300 mg capsule 300 mg PO BID Qty: 180 1RF cholecalciferol (vitamin D3) 1,000 unit Tablet 1,000 unit PO QAM pyridoxine (vitamin B6) 50 mg Tablet 50 mg PO QAM multivitamin [Multiple Vitamins] Tablet 1 tab PO QAM calcium carbonate 500 mg calcium (1,250 mg) Tablet 500 mg PO QAM lidocaine 5 % adhesive patch,medicated 1 patch TOP DAILY PRN (Reason: pain) Qty: 15 0RF Rx Instructions: leave on most painful area for 12 hrs omeprazole 40 mg capsule,delayed release(DR/EC) 40 mg PO QAM diclofenac sodium 1 % Gel 1 ea TOPICAL QID PRN (Reason: Pain) oxycodone 5 mg tablet 5 mg PO Q6H PRN (Reason: pain) Qty: 15 0RF acetaminophen [Tylenol 8 Hour] 650 mg tablet extended release 650 mg PO Q8H PRN (Reason: fever or pain) Qty: 30 0RF amlodipine 5 mg tablet 5 mg PO DAILY Held losartan 100 mg tablet 100 mg PO QAM Hold Instructions: Provider's Order - until you know your kidney function is back to normal Discharge Orders: Discharge Order (Routine); Ordered 02/05/25 Ordered By: Tawana Martins/Other Patient Handouts: Having a Ureteral Stent, Leg Bag Care Dc Admission Data Admit Date/Time: 02/04/25 09:19 Attending Provider: Mason Hood Admit Provider: Kandis Black Primary Care Provider: Griffin Meraz Other Providers: Tonio Rodriguez; Kandis Black Other Interventions: Discharge Summary Assessment (RN) Last Done: 02/05/25 11:18 Hospital Stay Data Consultations 02/04/25 08:15 Consult Urology Routine 02/04/25 08:53 ED Decision to Admit Stat Procedures Performed Operation Date: 02/04/25 14:10 Actual Procedures p Cystoscopy, Left Retrograde Pyelogram, Left Urethral Dilation, Left Ureteral Stent Placement(Left) - Tonio Rodriguez DO Diagnostic Imagining Performed 02/04/25 FL retrograde includes kub Routine Pending Results Patient Have Any Pending Studies at Discharge: No Discharge Instructions Given to Patient (Per Discharging Provider) Mr. Wiggins, Michael were hospitalized after having pain found to be from kidney stones. You were seen by urology and taken to the OR to have a stent placed on 02/[address] Rodriguez. You will need to follow up with urology for stent removal. Medication Changes/Recommendations: * Continue flomax daily while stent in place - this is to help with easier passage of urine * oxybutyin - as needed for spasms from stent in place * Pain control - tylenol, home oxycodone It is normal to still have discomfort in the flank area while the stent is in place, this pain may be worse with movement. Blood tinged urine can also be common. If you are having persistent dark bloody urine or thick bloody urine for >8 hours please contact your urologist. It is important that you are staying hydrated while the stent is in place. The urology office should be contacting you to schedule and appointment. If you do not hear from them by Tuesday please contact them at [phone] Please contact the urologist if you have any uncontrolled pain, fevers > 100F, or inability to urinate. Your kidney function is still improving so it is very important that you are staying extra hydrated over the next few days. Recommend repeat labs with your PCP in a week. Also please do not take your losartan until you know that your kidney function is back to normal. If you feel like headed or dizzy while moving around - your blood pressure may be low. You may need to decrease your amlodipine dose. Activity: You can do normal everyday activities as your body allows. Take rest breaks if you feel tired. Do not overexert. Stop activity if you have pain, shortness of breath or feel dizzy. Follow-up appointments: Make an appointment with your primary care physician within one week of discharge. A copy of this summary will be sent to them. Every time you see your primary care physician, or any other doctor, bring your medication list, and a list of questions. CONTACT YOUR PRIMARY CARE PROVIDER if you experience any of the following: Shortness of breath or difficulty breathing Fevers or chills Feeling tired with normal activity or experiencing dizziness or fainting Difficulty following your treatment plan, or difficulty taking medications CALL 911 OR GO TO THE EMERGENCY DEPARTMENT if you experience any of the following: Severe abdominal pain or nausea/vomiting Severe chest pain, or chest pain that radiates (moves) to your jaw or arm Sudden, severe shortness of breath or difficulty breathing Thank you for allowing us to participate in your care. Total Time Total Time Spent Total Time Spent (In Minutes): Time spent day of discharge 35 minutes including direct patient care, medication reconciliation, documentation, review of labs and images, and coordination of care. Coding Level of Care Code 47875 INP/OBS DISCH >30 MIN Diagnoses Nephrolithiasis N20.0 Hydronephrosis N13.30 MG (acute kidney injury) N17.9 HTN (hypertension) I10"
== END 2025-02-05 14:19 | disposition home or self-care (01) | DRG 661 ==
LOC: ED 06:39 → SUATTDRO 09:19 → 3W 09:19

== ENCOUNTER 2025-02-05 16:20 | Observation (INO) ==
[2025-02-05] MEDS: HYDROmorphone INJ 0.5 MG/0.5 ML SYR IV STA (16:57)
[2025-02-05] MEDS: KETOROLAC TROMETHAMINE 15 MG/ML VIAL IV ONE (16:57)
[2025-02-05 17:07] LABS: Hematocrit (blood only) 40.2 % (42.0-52.0); Hemoglobin 14.3 g/dL (14.0-18.0); Immature Granulocytes # (auto) 0.03 K/uL (0.01-0.20); Immature Granulocytes % (auto) 0.4 %; Mean Corpuscular Hemoglobin 31.6 pg (25.0-34.0); Mean Corpuscular Volume 88.9 fL (80.0-100.0); Platelet Count 196 K/uL (130-400); RDW Standard Deviation 41.5 fL (36.4-46.3); Red Blood Count 4.52 M/uL (4.70-6.10); White Blood Count 8.16 K/ul (4.8-10.8)
[2025-02-05 17:23] LABS: Alanine Aminotransferase 13.0 U/L (7-52); Albumin Globulin Ratio 1.1 (0.9-2); Albumin Level 3.7 gm/dl (3.4-5.0); Alkaline Phosphatase 96.0 U/L (34-104); Anion Gap 13.0 (3-11); Bilirubin,Total 0.8 mg/dl (0.2-1.0); Blood Urea Nitrogen 24.0 mg/dl (6-23); Calcium 9.4 mg/dl (8.6-10.3); Carbon Dioxide 22.0 mmol/L (21-32); Chloride 104.0 mmol/L (98-107); Creatinine Clr Calc Pharmacy 25.3 ml/min; Globulin 3.4 gm/dl (2.5-4.0); Glucose 149.0 mg/dl (70-99(Fasting)); Potassium 3.6 mmol/L (3.5-5.1); Sodium 139.0 mmol/L (136-145); Total Protein 7.1 gm/dl (6.0-8.3)
--- NOTE | 2025-02-05 18:04 | CT Scan Report ---
EXAMINATION: CT of the abdomen and pelvis performed without contrast TECHNIQUE: Helical CT images from the lung bases through the symphysis pubis were obtained without contrast. Coronal and sagittal reformatted images were generated at a workstation for further assessment. Dose reduction techniques were achieved by using automatic exposure control and/or adjustment of mA and/or kV according to patient size and/or use of iterative reconstruction technique. COMPARISON: 02/03/2025 HISTORY: Abdominal pain FINDINGS: Lower chest: New trace left-sided pleural effusion. Cardiomegaly. AICD leads in place. Liver: No suspicious liver lesions. Gallbladder: No gallstones. No evidence of acute cholecystitis. Spleen: Normal size. Pancreas: No suspicious pancreatic lesions. The pancreatic duct is not dilated. Adrenal glands: 1.9 cm left fat-containing adrenal adenoma. Kidneys: A left nephroureteral stent has been placed. The 4 mm stone is in similar position in the upper left ureter. There are additional few punctate nonobstructing renal stones bilaterally. There is relative atrophy of the right kidney. Simple left renal cyst. Bladder / Pelvic organs: Acevedo catheter in place with incompletely distended urinary bladder. Small posterior left-sided urinary bladder diverticulum.. Enlarged prostate gland measuring 5.5 cm. Bowel: No bowel obstruction. No abnormal bowel wall thickening. The appendix is unremarkable. Lymph nodes: No retroperitoneal, mesenteric, or pelvic lymphadenopathy. Peritoneum / Retroperitoneum: No free fluid or air within the abdomen. Vessels: No infrarenal aortic aneurysm. IVC filter. Bones and soft tissues: No suspicious lesion in the bones. Fixation changes and laminectomy changes of the lumbar spine. IMPRESSION: Left nephroureteral stent placed. Similar positioning of a 4 mm stone in the upper left ureter. There is a new small left pleural effusion. Electronically signed by Jg Mclain 02-05-2025 6:03 PM
--- NOTE | 2025-02-05 19:04 | Emergency Department Note ---
Impression & Plan Renal colic on left side ED Provider Note NAME: BUSHRA SUN AGE: 84 SEX: M : 1940 ARRIVES VIA: Walk-In INFORMANT: Patient, ED PROVIDER(S): Olga Garza MD CHIEF COMPLAINT: Kidney stone HPI: This is a 34-year-old male presented for kidney stone pain. Patient had a stent placed yesterday. He was discharged in the hospital about 2 hours prior to arrival. He reported excruciating pain in his left flank immediately upon returning home. He is escalating pain and cannot provide history at this time. His states that he has of the same pain as a kidney stone/stent placement. He has not any fevers, chills, nausea or vomiting. He is having bloody output from the Acevedo catheter. ROS: See above HPI for pertinent positives & negatives. A total of 10 systems reviewed and were otherwise negative. PAST MEDICAL HISTORY: See Below PAST SURGICAL HISTORY: See Below FAMILY HISTORY: See Below SOCIAL HISTORY: See Below HOME MEDICATIONS: See Below ALLERGIES: See Below VITALS: See Below PHYSICAL EXAMINATION: General: resting comfortably in no acute distress Head: Normocephalic and atraumatic Eyes: Normal inspection, extraocular muscles intact Ear, nose, throat: Normal external exam Neck: Normal range of motion Respiratory: lungs clear to auscultation bilaterally Cardiovascular: Regular rate/rhythm, no murmur GI: Left CVA tenderness Extremities: nontender, moves all extremities Neuro: The patient awake and alert, appropriately conversive, no focal deficits, symmetric faces Skin: Warm, dry, and intact MEDICAL DECISION MAKING: This is a 34-year-old male presented for kidney stone pain. Patient recently had stent placement. He is fairly tender to the left CVA. Will do repeat screening CT to assess for surgical complication, pneumoperitoneum, pyelonephritis, infection - Bloodwork is reviewed showing no significant leukocytosis, anemia, electrolyte. Creatinine stable at 2 - CT imaging reveals stent placement and stable kidney stone -Discussed with patient as he currently has improved symptoms after Dilaudid and Toradol. He does state that he is worried about further pain. He request admission at this time - Care discussed with Dr. Cardoso for admission Differential diagnosis: Kidney stone, sterile complication, pneumoperitoneum, pyelonephritis, infection Independent History obtained from: Diagnostics interpreted by me: ECG: None Cardiac Monitoring: An order was placed for continuous cardiac monitoring. The monitor shows a rate of 85 with sinus rhythm. Past Med/Surg History Problem List (Updated 02/06/25 @ 00:09 by Olga Garza MD) Renal colic on left side (Acute) Kidney stone on left side (Acute) Acute kidney injury superimposed on CKD (Acute) Hydronephrosis (Acute) CKD (chronic kidney disease) (Acute) Urolithiasis (Acute) Cervical dystonia Essential tremor Hands Chronic anticoagulation Cervical paraspinal muscle spasm Myofascial pain History of total replacement of right shoulder joint MG (acute kidney injury) Acquired occlusion of inferior vena cava (Acute) Neck pain Back pain (Acute) Iliopsoas muscle hematoma Pulmonary embolism (Acute) Cervical facet joint syndrome Urinary retention Degenerative joint disease of cervical spine HTN (hypertension) (Chronic) Chronic back pain Lumbar stenosis Syncope (Acute) Disc degeneration, lumbar (Acute) Arthritis (Acute) Actinic keratosis (Acute) Asymmetric SNHL (sensorineural hearing loss) Thoracic facet syndrome Erectile dysfunction Proteinuria Osteoarthritis Vitamin D deficiency AVB (atrioventricular block) Medical History Stage 3b chronic kidney disease Sensorineural hearing loss (SNHL) of right ear with restricted hearing of left ear Dyslipidemia BPH (benign prostatic hyperplasia) Osteoarthritis 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 Nephrolithiasis Hiatal hernia Ankylosing spondylitis Remotely diagnosed Chronic, constant back pain History of basal cell carcinoma Surgical History 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 S/P total hip arthroplasty Status post placement of cardiac pacemaker History of basal cell carcinoma (BCC) excision History of back surgery x 4 History of left shoulder replacement History of right shoulder replacement History of esophagogastroduodenoscopy (EGD) History of colonoscopy Family History Mother , Mother age 99 with hypertension and arthritis Osteoarthritis Cancer Hypertension Father , Father age 48 of an SD. Myocardial infarction Other Family history non-contributory No family history of adverse response to anesthesia No family history of allergies No family history of bleeding disorder Denies family history of Hearing loss Heart disease Stroke Asthma Social History Smoking Status: Never smoker Second Hand Exposure: Yes ( smoked for 35 years per patient); Do You Dip or Chew Tobacco: No; Hx Alcohol Use: No Hx Substance Use: No Preferred Language: Icelandic Communication Ability: Effective Visual Impairment: No Limitations Alkylation Operator Required: No Beliefs That Will Affect Care: None marital status: Current Living Situation: Other Current Living Situation Comment: lives with daughter current occupational status: retired 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 Feels Safe at Home: Yes Diet: regular Physical Activity Frequency: Does not Exercise Do you think of yourself as: straight/heterosexual Gender Identity: Male Assistive Devices: Walker Allergies Allergies Allergy/AdvReac Type Severity Reaction Status Date / Time hydrochlorothiazide Allergy Severe Rash Verified 02/04/25 12:14 doxazosin Allergy Intermediate RASH, Verified 02/04/25 12:14 ITCHING oxaprozin Allergy Intermediate RASH, Verified 02/04/25 12:14 ITCHING mycophenolate mofetil AdvReac Severe "MAKES ME Verified 02/04/25 12:14 [From CellCept] EXTREMELY ILL" terazosin AdvReac Intermediate nervousness Verified 02/04/25 12:14 Home Meds Home Medications Medication Instructions Recorded Confirmed multivitamin (Multiple Vitamins 1 tab PO QAM 03/21/18 02/05/25 tablet) cholecalciferol (vitamin D3) 25 1,000 unit PO QAM 08/05/18 02/05/25 mcg (1,000 unit) tablet pyridoxine (vitamin B6) 50 mg 50 mg PO QAM 08/05/18 02/05/25 tablet atorvastatin 40 mg tablet 40 mg PO QAM 04/03/20 02/05/25 losartan 100 mg tablet 100 mg PO QAM 11/27/20 02/05/25 nitroglycerin 0.4 mg sublingual 0.4 mg sublingual Q5M PRN Chest 11/27/20 02/05/25 tablet Pain calcium carbonate 500 mg PO QAM 05/15/23 02/05/25 omeprazole 40 mg capsule,delayed 40 mg PO QAM 05/26/23 02/05/25 release diclofenac sodium 1 % topical gel 1 ea topical QID PRN Pain 06/15/23 02/05/25 amlodipine 5 mg tablet 5 mg PO DAILY 04/05/24 02/05/25 amlodipine 2.5 mg tablet 2.5 mg PO DAILY 06/05/24 02/05/25 apixaban 5 mg tablet (Eliquis) 2.5 mg PO BID 08/03/24 02/05/25 Previous Rx's Medication Instructions Recorded finasteride 5 mg tablet 5 mg PO QAM #90 tabs 10/14/22 lidocaine 5 % topical patch 1 patch topical DAILY PRN pain #15 05/15/23 ea oxycodone 5 mg tablet 5 mg PO Q6H PRN pain #15 tabs 06/15/23 acetaminophen 650 mg 650 mg PO Q8H PRN fever or pain 11/19/23 tablet,extended release (Tylenol 8 #30 tabs Hour) gabapentin 300 mg capsule 300 mg PO BID #180 caps 10/02/24 propranolol 20 mg tablet 20 mg PO BID #180 tabs 11/21/24 oxybutynin chloride 5 mg tablet 5 mg PO BID PRN ureteral spasms 02/05/25 #20 tabs tamsulosin 0.4 mg capsule 0.4 mg PO QAM #30 caps 02/05/25 Results & Data (ED) Vital Signs Vital Signs - 24 hr 02/05/25 16:21 02/05/25 16:56 02/05/25 17:16 Temperature 36.8 C Temperature Source Temporal Artery Scan Pulse Rate 94 H Pulse Rate [Apical] 105 H Respiratory Rate 19 25 H Respiratory Effort / Characteristics Non-Labored Spontaneous Spontaneous Respiratory Depth Normal Normal Respiratory Pattern Regular Blood Pressure 124/79 Blood Pressure [Right Arm] 157/96 H Blood Pressure Mean 94 Blood Pressure Mean [Right Arm] 116 Blood Pressure Position Sitting Pulse Oximetry 98 97 86 L Oxygen Delivery Method Room Air Room Air Nasal Cannula Oxygen Flow Rate 0 Sepsis Recent Fever Within 48 Hours No Sepsis New/Unexplained Change in Mental Status No Sepsis Action Taken by Nursing No Action Required Oxygen Flow Rate - Titration 2 Pulse Oximetry Post Tiitration 93 02/05/25 18:00 02/05/25 18:05 02/05/25 18:12 Temperature Temperature Source Pulse Rate 98 H 105 H 100 H Pulse Rate [Apical] Respiratory Rate 13 14 Respiratory Effort / Characteristics Respiratory Depth Respiratory Pattern Blood Pressure 117/73 117/73 Blood Pressure [Right Arm] Blood Pressure Mean 87 87 Blood Pressure Mean [Right Arm] Blood Pressure Position Pulse Oximetry 98 95 Oxygen Delivery Method Oxygen Flow Rate Sepsis Recent Fever Within 48 Hours Sepsis New/Unexplained Change in Mental Status Sepsis Action Taken by Nursing Oxygen Flow Rate - Titration Pulse Oximetry Post Tiitration 02/05/25 18:30 02/05/25 18:40 02/05/25 19:00 Temperature Temperature Source Pulse Rate 95 H 97 H Pulse Rate [Apical] Respiratory Rate 13 22 Respiratory Effort / Characteristics Respiratory Depth Respiratory Pattern Blood Pressure 114/68 112/76 Blood Pressure [Right Arm] Blood Pressure Mean 83 88 Blood Pressure Mean [Right Arm] Blood Pressure Position Pulse Oximetry 94 97 91 Oxygen Delivery Method Nasal Cannula Oxygen Flow Rate 2 Sepsis Recent Fever Within 48 Hours Sepsis New/Unexplained Change in Mental Status Sepsis Action Taken by Nursing Oxygen Flow Rate - Titration 1 Pulse Oximetry Post Tiitration 95 02/05/25 19:31 Temperature Temperature Source Pulse Rate 102 H Pulse Rate [Apical] Respiratory Rate 22 Respiratory Effort / Characteristics Respiratory Depth Respiratory Pattern Blood Pressure 135/94 Blood Pressure [Right Arm] Blood Pressure Mean 121 Blood Pressure Mean [Right Arm] Blood Pressure Position Pulse Oximetry 93 Oxygen Delivery Method Oxygen Flow Rate Sepsis Recent Fever Within 48 Hours Sepsis New/Unexplained Change in Mental Status Sepsis Action Taken by Nursing Oxygen Flow Rate - Titration Pulse Oximetry Post Tiitration Laboratory Data 02/05/25 Unknown 02/05/25 Unknown Lab Results 02/05/25 Range/Units Unknown WBC 8.16 (4.8-10.8) K/ul RBC 4.52 L (4.70-6.10) M/uL Hgb 14.3 (14.0-18.0) g/dL Hct 40.2 L (42.0-52.0) % MCV 88.9 (80.0-100.0) fL MCH 31.6 (25.0-34.0) pg MCHC 35.6 (32.0-36.0) g/dL RDW Std Deviation 41.5 (36.4-46.3) fL RDW Coeff of Selina 12.7 (11.5-14.5) % Plt Count 196 (130-400) K/uL MPV 9.9 (9.4-12.4) fL Immature Gran % (Auto) 0.4 % Neut % (Auto) 76.8 % Lymph % (Auto) 13.7 % [place] % (Auto) 8.3 % Eos % (Auto) 0.7 % Baso % (Auto) 0.1 % Neut # (Auto) 6.26 (1.40-6.50) K/uL Lymph # (Auto) 1.12 L (1.20-3.40) K/uL [place] # (Auto) 0.68 H (0.11-0.59) K/uL Eos # (Auto) 0.06 (0.00-0.50) K/uL Baso # (Auto) 0.01 (0.00-0.20) K/uL Immature Gran # (Auto) 0.03 (0.01-0.20) K/uL Sodium 139 (136-145) mmol/L Potassium 3.6 (3.5-5.1) mmol/L Chloride 104 (98-107) mmol/L Carbon Dioxide 22 (21-32) mmol/L Anion Gap 13 H (3-11) BUN 24 H (6-23) mg/dl Creatinine 2.05 H (0.6-1.4) mg/dl Est Cr Clr Drug Dosing 25.3 ml/min eGFR 31.36 BUN/Creatinine Ratio 11.7 (10-20) Glucose 149 H (70-99(Fasting)) mg/dl Calcium 9.4 (8.6-10.3) mg/dl Total Bilirubin 0.8 (0.2-1.0) mg/dl AST 27 (13-39) U/L ALT 13 (7-52) U/L Alkaline Phosphatase 96 (34-104) U/L Total Protein 7.1 (6.0-8.3) gm/dl Albumin 3.7 (3.4-5.0) gm/dl Globulin 3.4 (2.5-4.0) gm/dl Albumin/Globulin Ratio 1.1 (0.9-2) Administered Medications Lactated Ringer's (Lr) 1,000 mls @ 100 mls/hr IV .Q10H HOA Stop: 02/06/25 16:43 Last Admin: 02/05/25 22:06 Dose: 100 mls/hr Documented By: ALLAN Ceftriaxone Sodium (Rocephin) 2,000 mg in 50 mls @ 100 mls/hr IV Q24H HOA Stop: 02/15/25 20:59 Last Infusion: 02/05/25 23:23 Dose: Infused Documented By: Admin: 02/05/25 22:06 Dose: 100 mls/hr Documented By: ALLAN Morphine Sulfate (Morphine Sulfate 4 Mg/Ml 1 Ml Carp\\Vial) 2 mg IV Q2H PRN PRN Reason: Severe Pain (Scale 7, 8, 9,10) Stop: 02/19/25 20:43 Last Admin: 02/05/25 22:16 Dose: 2 mg Documented By: ALLAN Tamsulosin HCl (Tamsulosin Hcl 0.4 Mg Cap) 0.4 mg PO HS HOA Stop: 03/07/25 20:59 Last Admin: 02/05/25 22:06 Dose: 0.4 mg Documented By: ALLAN Discontinued Medications Hydromorphone HCl (Hydromorphone Inj 0.5 Mg/0.5 Ml Syr) 0.5 mg IV NOW STA Stop: 02/05/25 16:51 Last Admin: 02/05/25 16:57 Dose: 0.5 mg Documented By: kari Ketorolac Tromethamine (Ketorolac Tromethamine 15 Mg/Ml Vial) 15 mg IV NOW ONE Stop: 02/05/25 16:51 Last Admin: 02/05/25 16:57 Dose: 15 mg Documented By: kari Imaging Data Radiologist's Impression: Abdomen/Pelvis CT 02/05/25 17:26 EXAMINATION: CT of the abdomen and pelvis performed without contrast TECHNIQUE: Helical CT images from the lung bases through the symphysis pubis were obtained without contrast. Coronal and sagittal reformatted images were generated at a workstation for further assessment. Dose reduction techniques were achieved by using automatic exposure control and/or adjustment of mA and/or kV according to patient size and/or use of iterative reconstruction technique. COMPARISON: 02/03/2025 HISTORY: Abdominal pain FINDINGS: Lower chest: New trace left-sided pleural effusion. Cardiomegaly. AICD leads in place. Liver: No suspicious liver lesions. Gallbladder: No gallstones. No evidence of acute cholecystitis. Spleen: Normal size. Pancreas: No suspicious pancreatic lesions. The pancreatic duct is not dilated. Adrenal glands: 1.9 cm left fat-containing adrenal adenoma. Kidneys: A left nephroureteral stent has been placed. The 4 mm stone is in similar position in the upper left ureter. There are additional few punctate nonobstructing renal stones bilaterally. There is relative atrophy of the right kidney. Simple left renal cyst. Bladder / Pelvic organs: Acevedo catheter in place with incompletely distended urinary bladder. Small posterior left-sided urinary bladder diverticulum.. Enlarged prostate gland measuring 5.5 cm. Bowel: No bowel obstruction. No abnormal bowel wall thickening. The appendix is unremarkable. Lymph nodes: No retroperitoneal, mesenteric, or pelvic lymphadenopathy. Peritoneum / Retroperitoneum: No free fluid or air within the abdomen. Vessels: No infrarenal aortic aneurysm. IVC filter. Bones and soft tissues: No suspicious lesion in the bones. Fixation changes and laminectomy changes of the lumbar spine. IMPRESSION: Left nephroureteral stent placed. Similar positioning of a 4 mm stone in the upper left ureter. There is a new small left pleural effusion. Electronically signed by Jg Mclain 02-05-2025 6:03 PM Discharge Plan Visit Data Chief Complaint: Urinary Symptoms Stated Complaint: LT FLANK PAIN, HAD KIDNEY STONE, CATHETER REPLACED ED Provider: Olga Garza ED Midlevel Provider: Karli Pearl Discharge Problem: Renal colic on left side Patient Disposition: Admitted As Inpatient Condition: Fair Discharge Instructions Interventions: ED Discharge Assessment Last Done: 02/05/25 20:28
--- NOTE | 2025-02-05 19:33 | History & Physical Report ---
Date of Service February 05, 2025 Assessment & Plan (1) Kidney stone on left side: (2) Acute kidney injury superimposed on CKD: (3) HTN (hypertension): (4) Dyslipidemia: Plan 84yo male with recent admission for left renal stone s/p left ureteral stent placement 02/04/25 with discharge earlier today returning with severe pain - left flank and groin. Imaging reveals that stent is in place. Acevedo is in place draining bloody urine. #Left flank pain - pain likely from stent placement, left stone remains in the upper left ureter - 4mm - could be causing symptoms as well. -Observation to medical -Pain control with Tylenol -Oxycodone 5mg po q 4 hours as needed for mild-moderate pain 1-6 -Morphine 2mg IV 2 hours as needed for severe pain 7-10 -IVF with LR at 100mL/hr x2L ordered -Flomax 0.4mg po daily -Continue Oxybutynin 5mg po BID PRN -Zofran PRN nausea #UTI - UA with 4+ bacteria present - history of pansensitive E.coli in the past. -Will initiate Ceftriaxone daily for UTI -Follow urine culture #MG on CKD - patient with baseline Cr of 1.5. Cr of 2.42 when last admitted. Cr of 2.05 on discharge. Losartan has been held -Continue to hold Losartan -Gentle IVF as above for renal stone -Avoid nephrotoxic agents -Renal dosing where needed #HTN - blood pressure well controlled at present -Continue Amlodipine 7.5mg po daily -Continue Propranolol 20mg po BID #Hyperlipidemia - chronic. 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 Patient was recently admitted to [facility] on 02/04/25 after presenting with left flank pain. He was found to have a 7mm obstructing calculus in the left proximal ureter with mild to moderate left hydroureteronephrosis. Patient was seen by Urology and had a cystoscopy performed on 02/04/25. 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 Left ureteral stent was placed. Patient felt improved and was discharged home earlier today 02/05/25 with a prescription for Flomax. Upon returning home patient developed severe pain in the left flank and groin which prompted him to return to the ER. Acevedo remains in place - bloody urine output present. No additional complaints - specifically denies fever, chills, chest pain, cough, SOB, nausea, vomiting In the ER patient afebrile, HD stable. Did become mildly hypoxic after receiving Dilaudid. Now on 2L NC with appropriate saturations. ER Course: Dilaudid 0.5mg IV Toradol 15mg IV Allergies Allergy/AdvReac Type Severity Reaction Status Date / Time hydrochlorothiazide Allergy Severe Rash Verified 02/04/25 12:14 doxazosin Allergy Intermediate RASH, Verified 02/04/25 12:14 ITCHING oxaprozin Allergy Intermediate RASH, Verified 02/04/25 12:14 ITCHING mycophenolate mofetil AdvReac Severe "MAKES ME Verified 02/04/25 12:14 [From CellCept] EXTREMELY ILL" terazosin AdvReac Intermediate nervousness Verified 02/04/25 12:14 Home Medications Medication Instructions Recorded Confirmed Type multivitamin (Multiple Vitamins 1 tab PO QAM 03/21/18 02/05/25 History tablet) cholecalciferol (vitamin D3) 25 1,000 unit PO QAM 08/05/18 02/05/25 History mcg (1,000 unit) tablet pyridoxine (vitamin B6) 50 mg 50 mg PO QAM 08/05/18 02/05/25 History tablet atorvastatin 40 mg tablet 40 mg PO QAM 04/03/20 02/05/25 History losartan 100 mg tablet 100 mg PO QAM 11/27/20 02/05/25 History nitroglycerin 0.4 mg sublingual 0.4 mg sublingual Q5M PRN Chest 11/27/20 02/05/25 History tablet Pain finasteride 5 mg tablet 5 mg PO QAM #90 tabs 10/14/22 02/05/25 Rx calcium carbonate 500 mg PO QAM 05/15/23 02/05/25 History lidocaine 5 % topical patch 1 patch topical DAILY PRN pain #15 05/15/23 02/05/25 Rx ea omeprazole 40 mg capsule,delayed 40 mg PO QAM 05/26/23 02/05/25 History release diclofenac sodium 1 % topical gel 1 ea topical QID PRN Pain 06/15/23 02/05/25 History oxycodone 5 mg tablet 5 mg PO Q6H PRN pain #15 tabs 06/15/23 02/05/25 Rx acetaminophen 650 mg 650 mg PO Q8H PRN fever or pain 11/19/23 02/04/25 Rx tablet,extended release (Tylenol 8 #30 tabs Hour) amlodipine 5 mg tablet 5 mg PO DAILY 04/05/24 02/05/25 History amlodipine 2.5 mg tablet 2.5 mg PO DAILY 06/05/24 02/05/25 History apixaban 5 mg tablet (Eliquis) 2.5 mg PO BID 08/03/24 02/05/25 History gabapentin 300 mg capsule 300 mg PO BID #180 caps 10/02/24 02/05/25 Rx propranolol 20 mg tablet 20 mg PO BID #180 tabs 11/21/24 02/05/25 Rx oxybutynin chloride 5 mg tablet 5 mg PO BID PRN ureteral spasms 02/05/25 02/05/25 Rx #20 tabs tamsulosin 0.4 mg capsule 0.4 mg PO QAM #30 caps 02/05/25 02/05/25 Rx Past Med/Surg History Problem List Kidney stone on left side (Acute) Acute kidney injury superimposed on CKD (Acute) Hydronephrosis (Acute) CKD (chronic kidney disease) (Acute) Urolithiasis (Acute) Cervical dystonia Essential tremor Hands Chronic anticoagulation Cervical paraspinal muscle spasm Myofascial pain History of total replacement of right shoulder joint MG (acute kidney injury) Acquired occlusion of inferior vena cava (Acute) Neck pain Back pain (Acute) Iliopsoas muscle hematoma Pulmonary embolism (Acute) Cervical facet joint syndrome Urinary retention Degenerative joint disease of cervical spine HTN (hypertension) (Chronic) Chronic back pain Lumbar stenosis Syncope (Acute) Disc degeneration, lumbar (Acute) Arthritis (Acute) Actinic keratosis (Acute) Asymmetric SNHL (sensorineural hearing loss) Thoracic facet syndrome Erectile dysfunction Proteinuria Osteoarthritis Vitamin D deficiency AVB (atrioventricular block) Medical History Stage 3b chronic kidney disease Sensorineural hearing loss (SNHL) of right ear with restricted hearing of left ear Dyslipidemia BPH (benign prostatic hyperplasia) Osteoarthritis 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 Nephrolithiasis Hiatal hernia Ankylosing spondylitis Remotely diagnosed Chronic, constant back pain History of basal cell carcinoma Surgical History 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 S/P total hip arthroplasty Status post placement of cardiac pacemaker History of basal cell carcinoma (BCC) excision History of back surgery x 4 History of left shoulder replacement History of right shoulder replacement History of esophagogastroduodenoscopy (EGD) History of colonoscopy Family History Mother , Mother age 99 with hypertension and arthritis Osteoarthritis Cancer Hypertension Father , Father age 48 of an [place]. Myocardial infarction Other Family history non-contributory No family history of adverse response to anesthesia No family history of allergies No family history of bleeding disorder Denies family history of Hearing loss Heart disease Stroke Asthma Social History Smoking Status: Never smoker Second Hand Exposure: Yes ( smoked for 35 years per patient); Do You Dip or Chew Tobacco: No; Hx Alcohol Use: No Hx Substance Use: No Preferred Language: Peruvian Communication Ability: Effective Visual Impairment: No Limitations Habitat Management Coordinator Required: No Beliefs That Will Affect Care: None marital status: Current Living Situation: Other Current Living Situation Comment: lives with daughter current occupational status: retired 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 Feels Safe at Home: Yes Diet: regular Physical Activity Frequency: Does not Exercise Do you think of yourself as: straight/heterosexual Gender Identity: Male Assistive Devices: Walker Review of Systems Review of Systems: All systems reviewed & are unremarkable except as noted in HPI & below Physical Exam Physical Exam: General: patient resting comfortably, NAD, non-toxic in appearance, AA&O x 4 Skin: warm, dry, intact, no rashes or lesions HEENT: NC/AT, PERRL, EOMI, anicteric sclera, conjunctiva without injection, external ear normal to inspection and nontender, nares patent, moist mucus membranes, dentition intact, no oropharyngeal lesions, neck supple, trachea midline, no LAD, no thyromegaly, no JVD Heart: +S1/S2, regular, no m/r/g Lungs: equal air entry bilaterally, no rales/rhonchi/wheezes Abd: +BS, soft, NT/ND, no masses/organomegaly/ascites, Acevedo in place with bloody urine output, no clots present in bag Ext: warm, 2+ pulses in UE/LE bilaterally, no clubbing/cyanosis or edema Neuro: nonfocal, patient AA&O x 4, speech intact, no facial droop, moving all extremities on command with equal strength 5/5 Results & Data Results & Data Vital Signs (Past 12 Hours) Vital Signs Temp Pulse Pulse Resp BP BP Pulse Ox 02/05/25 18:40 97 02/05/25 18:30 95 H 13 114/68 94 02/05/25 18:12 100 H 14 117/73 95 02/05/25 18:05 105 H 02/05/25 18:00 98 H 13 117/73 98 02/05/25 17:16 86 L 02/05/25 16:56 105 H 25 H 157/96 H 97 02/05/25 16:21 36.8 C 94 H 19 124/79 98 O2 Del Method O2 Flow Rate 02/05/25 18:40 Nasal Cannula 2 02/05/25 18:30 02/05/25 18:12 02/05/25 18:05 02/05/25 18:00 02/05/25 17:16 Nasal Cannula 0 02/05/25 16:56 Room Air 02/05/25 16:21 Room Air Laboratory Results Laboratory Results WBC 8.16 K/ul (4.8-10.8) 02/05/25 Unknown RBC 4.52 M/uL (4.70-6.10) L 02/05/25 Unknown Hgb 14.3 g/dL (14.0-18.0) 02/05/25 Unknown Hct 40.2 % (42.0-52.0) L 02/05/25 Unknown MCV 88.9 fL (80.0-100.0) 02/05/25 Unknown MCH 31.6 pg (25.0-34.0) 02/05/25 Unknown MCHC 35.6 g/dL (32.0-36.0) 02/05/25 Unknown RDW Std Deviation 41.5 fL (36.4-46.3) 02/05/25 Unknown RDW Coeff of Selina 12.7 % (11.5-14.5) 02/05/25 Unknown Plt Count 196 K/uL (130-400) 02/05/25 Unknown MPV 9.9 fL (9.4-12.4) 02/05/25 Unknown Immature Gran % (Auto) 0.4 % 02/05/25 Unknown Neut % (Auto) 76.8 % 02/05/25 Unknown Lymph % (Auto) 13.7 % 02/05/25 Unknown [place] % (Auto) 8.3 % 02/05/25 Unknown Eos % (Auto) 0.7 % 02/05/25 Unknown Baso % (Auto) 0.1 % 02/05/25 Unknown Neut # (Auto) 6.26 K/uL (1.40-6.50) 02/05/25 Unknown Lymph # (Auto) 1.12 K/uL (1.20-3.40) L 02/05/25 Unknown [place] # (Auto) 0.68 K/uL (0.11-0.59) H 02/05/25 Unknown Eos # (Auto) 0.06 K/uL (0.00-0.50) 02/05/25 Unknown Baso # (Auto) 0.01 K/uL (0.00-0.20) 02/05/25 Unknown Immature Gran # (Auto) 0.03 K/uL (0.01-0.20) 02/05/25 Unknown Sodium 139 mmol/L (136-145) 02/05/25 Unknown Potassium 3.6 mmol/L (3.5-5.1) 02/05/25 Unknown Chloride 104 mmol/L (98-107) 02/05/25 Unknown Carbon Dioxide 22 mmol/L (21-32) 02/05/25 Unknown Anion Gap 13 (3-11) H 02/05/25 Unknown BUN 24 mg/dl (6-23) H 02/05/25 Unknown Creatinine 2.05 mg/dl (0.6-1.4) H 02/05/25 Unknown Est Cr Clr Drug Dosing 25.3 ml/min 02/05/25 Unknown eGFR 31.36 02/05/25 Unknown BUN/Creatinine Ratio 11.7 (10-20) 02/05/25 Unknown Glucose 149 mg/dl (70-99(Fasting)) H 02/05/25 Unknown Calcium 9.4 mg/dl (8.6-10.3) 02/05/25 Unknown Total Bilirubin 0.8 mg/dl (0.2-1.0) 02/05/25 Unknown AST 27 U/L (13-39) 02/05/25 Unknown ALT 13 U/L (7-52) 02/05/25 Unknown Alkaline Phosphatase 96 U/L (34-104) 02/05/25 Unknown Total Protein 7.1 gm/dl (6.0-8.3) 02/05/25 Unknown Albumin 3.7 gm/dl (3.4-5.0) 02/05/25 Unknown Globulin 3.4 gm/dl (2.5-4.0) 02/05/25 Unknown Albumin/Globulin Ratio 1.1 (0.9-2) 02/05/25 Unknown Impressions Abdomen/Pelvis CT 02/05/25 17:26 EXAMINATION: CT of the abdomen and pelvis performed without contrast TECHNIQUE: Helical CT images from the lung bases through the symphysis pubis were obtained without contrast. Coronal and sagittal reformatted images were generated at a workstation for further assessment. Dose reduction techniques were achieved by using automatic exposure control and/or adjustment of mA and/or kV according to patient size and/or use of iterative reconstruction technique. COMPARISON: 02/03/2025 HISTORY: Abdominal pain FINDINGS: Lower chest: New trace left-sided pleural effusion. Cardiomegaly. AICD leads in place. Liver: No suspicious liver lesions. Gallbladder: No gallstones. No evidence of acute cholecystitis. Spleen: Normal size. Pancreas: No suspicious pancreatic lesions. The pancreatic duct is not dilated. Adrenal glands: 1.9 cm left fat-containing adrenal adenoma. Kidneys: A left nephroureteral stent has been placed. The 4 mm stone is in similar position in the upper left ureter. There are additional few punctate nonobstructing renal stones bilaterally. There is relative atrophy of the right kidney. Simple left renal cyst. Bladder / Pelvic organs: Acevedo catheter in place with incompletely distended urinary bladder. Small posterior left-sided urinary bladder diverticulum.. Enlarged prostate gland measuring 5.5 cm. Bowel: No bowel obstruction. No abnormal bowel wall thickening. The appendix is unremarkable. Lymph nodes: No retroperitoneal, mesenteric, or pelvic lymphadenopathy. Peritoneum / Retroperitoneum: No free fluid or air within the abdomen. Vessels: No infrarenal aortic aneurysm. IVC filter. Bones and soft tissues: No suspicious lesion in the bones. Fixation changes and laminectomy changes of the lumbar spine. IMPRESSION: Left nephroureteral stent placed. Similar positioning of a 4 mm stone in the upper left ureter. There is a new small left pleural effusion. Electronically signed by Jg Mclain 02-05-2025 6:03 PM PG Care Time/CCT Total # of Minutes Spent Total Time Spent with Patient: Total time spent is greater than 50% in coordination of care (as documented) at patient's floor/unit and/or counseling patient: Coding Level of Care Code 82053 INT INP/OBS CARE 3/75MIN Diagnoses Kidney stone on left side N20.0 Acute kidney injury superimposed on CKD N17.9; N18.9 HTN (hypertension) I10 Dyslipidemia E78.5
[2025-02-05 20:03] LABS: Appearance Urine Cloudy (Clear); Glucose Urine UA Negative (Negative)
[2025-02-05 20:07] LABS: Epithelial Cell Urine 0-2 /hpf (0-2)
[2025-02-05] MEDS ORDERED: ONDANSETRON INJ 2 MG/ML 2 ML VIAL IV PRN (20:44)
[2025-02-05] MEDS: cefTRIAXone SODIUM 2,000 MG/50 ML BAG IV SCH (22:06)
[2025-02-05] MEDS: TAMSULOSIN HCL 0.4 MG CAP PO SCH (22:06)
[2025-02-05] MEDS: LACTATED RINGER'S 1,000 ML IV SCH (22:06)
[2025-02-05] MEDS: MoRPHine SULFATE 4 MG/ML 1 ML CARP\\VIAL IV PRN (22:16)
[2025-02-06 07:20] LABS: Hematocrit (blood only) 33.4 % (42.0-52.0); Hemoglobin 11.6 g/dL (14.0-18.0); Mean Corpuscular Hemoglobin 31.4 pg (25.0-34.0); Mean Corpuscular Volume 90.3 fL (80.0-100.0); Platelet Count 154 K/uL (130-400); RDW Standard Deviation 41.7 fL (36.4-46.3); Red Blood Count 3.70 M/uL (4.70-6.10); White Blood Count 5.17 K/ul (4.8-10.8)
[2025-02-06 07:47] LABS: Anion Gap 8.0 (3-11); Blood Urea Nitrogen 26.0 mg/dl (6-23); Calcium 8.8 mg/dl (8.6-10.3); Carbon Dioxide 25.0 mmol/L (21-32); Chloride 108.0 mmol/L (98-107); Creatinine Clr Calc Pharmacy 29.3 ml/min; Glucose 92.0 mg/dl (70-99(Fasting)); Potassium 3.6 mmol/L (3.5-5.1); Sodium 141.0 mmol/L (136-145)
[2025-02-06] MEDS: GABAPENTIN 300 MG CAP PO SCH (13:43)
[2025-02-06] MEDS: PROPRANOLOL HCL 20 MG TAB PO SCH (13:43)
[2025-02-06] MEDS: APIXABAN 2.5 MG TAB PO SCH (13:43)
[2025-02-06] MEDS: FINASTERIDE 5 MG TAB PO SCH (15:06)
[2025-02-06] MEDS: DOCUSATE SODIUM 100 MG CAP PO PRN (15:47)
[2025-02-06] MEDS: POLYETHYLENE (MIRALAX) 17 GM PACK PO PRN (15:47)
[2025-02-06] MEDS ORDERED: PHENAZOPYRIDINE HCL 100 MG TAB PO PRN (16:03)
--- NOTE | 2025-02-06 16:06 | Hospitalist Progress Note ---
Date of Service February 06, 2025 Assessment & Plan (1) Kidney stone on left side: (2) Acute kidney injury superimposed on CKD: (3) HTN (hypertension): (4) Dyslipidemia: Plan 84yo male with recent admission for left renal stone s/p left ureteral stent placement 02/04/25 with discharge earlier today returning with severe pain - left flank and groin. Imaging reveals that stent is in place. Acevedo is in place draining bloody urine. #Left flank pain - pain likely from stent placement, left stone remains in the upper left ureter - 4mm - could be causing symptoms as well. -Pain control with Tylenol, as needed oxycodone. Scheduled oxybutynin continue Flomax Unfortunately cannot use Pyridium with his renal function being low did discuss case with urology suspect pain is related to spasms #UTI - UA with 4+ bacteria present, however likely drawn from a catheter given leukocytosis on prior admission, not unreasonable to treat. -Will initiate Ceftriaxone daily for UTI, Plan for cefdinir on discharge #MG on CKD - patient with baseline Cr of 1.5. Cr of 2.42 when last admitted. Cr of 2.05 on discharge. -Continue to hold Losartan MG is resolved AM BMP #HTN - blood pressure well controlled at present -Continue Amlodipine 7.5mg po daily -Continue Propranolol 20mg po BID - also uses this for tremors Hold losartan #Hyperlipidemia - chronic. 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 Reports that pain is controlled currently, when he got home pain was pretty severe when he tried to go to the bathroom. Sounds like he was having spasm pains from his stent. Encouraged him to try oxybutynin while he is here and to move around the room and do activities like he would similarly at home Review of Systems Review of Systems: All systems reviewed & are unremarkable except as noted in Subjective Physical Exam Physical Exam: General: NAD, VS as above, lying in bed appears comfortable Resp: normal respiratory effort, lungs clear to auscultation CV: RRR, no murmur, Abd: normal bowel sounds, non tender, soft Extremities: Moves all extremities, no edema Neuro: A&O x3, Skin: intact, no lesions noted Results & Data Results & Data Vital Signs (Past 12 Hours) Vital Signs Temp Pulse Resp BP Pulse Ox O2 Del Method 02/06/25 15:04 97.9 F 67 16 111/70 93 Room Air 02/06/25 13:42 98.2 F 86 16 130/80 93 Room Air 02/06/25 13:00 96 Room Air 02/06/25 08:00 Room Air 02/06/25 07:57 97.7 F 93 H 16 137/89 91 Room Air Laboratory Results CBC and chemistry reviewed PG Care Time/CCT Total # of Minutes Spent Total Time Spent with Patient: Total time spent is greater than 50% in coordination of care (as documented) at patient's floor/unit and/or counseling patient: Coding Level of Care Code 73046 SUB INP/OBS CARE 3/50MIN Diagnoses Kidney stone on left side N20.0 Acute kidney injury superimposed on CKD N17.9; N18.9 HTN (hypertension) I10 Dyslipidemia E78.5
[2025-02-06] MEDS: ACETAMINOPHEN 325 MG TAB PO PRN (21:29)
[2025-02-07 07:24] LABS: Anion Gap 7.0 (3-11); Blood Urea Nitrogen 22.0 mg/dl (6-23); Calcium 9.0 mg/dl (8.6-10.3); Carbon Dioxide 27.0 mmol/L (21-32); Chloride 106.0 mmol/L (98-107); Creatinine Clr Calc Pharmacy 32.1 ml/min; Glucose 78.0 mg/dl (70-99(Fasting)); Potassium 3.9 mmol/L (3.5-5.1); Sodium 140.0 mmol/L (136-145)
[2025-02-07] MEDS: ATORVASTATIN 40 MG TAB PO SCH (08:52)
[2025-02-07] MEDS: DOCUSATE SODIUM/SENNA 50/8.6MG TAB PO SCH (11:27)
[2025-02-07] MEDS: POLYETHYLENE (MIRALAX) 17 GM PACK PO SCH (11:28)
[2025-02-07] MEDS: CALCIUM CARBONATE 500 MG CHEWABLE TAB PO PRN (14:31)
--- NOTE | 2025-02-07 15:38 | Hospitalist Progress Note ---
Date of Service February 07, 2025 Assessment & Plan (1) Kidney stone on left side: (2) Acute kidney injury superimposed on CKD: (3) HTN (hypertension): (4) Dyslipidemia: Plan 84yo male with recent admission for left renal stone s/p left ureteral stent placement 02/04/25 with discharge earlier today returning with severe pain - left flank and groin. Imaging reveals that stent is in place. Acevedo is in place draining bloody urine. #Left flank pain - pain likely from stent placement, left stone remains in the upper left ureter - 4mm - could be causing symptoms as well. did discuss case with urology suspect pain is related to spasms -Pain control with Tylenol, as needed oxycodone. Scheduled oxybutynin continue Flomax Unfortunately cannot use Pyridium with his renal function being low Pain worsened by constipation/straining for bowel movement - increase miralax to BID, add senna daily. PO dulcolax x 1 today. Will need aggressive Bowel regimen at discharge while stent in place and narcotics are increased #UTI - UA with 4+ bacteria present, however likely drawn from a catheter given leukocytosis on prior admission, not unreasonable to treat. -Will initiate Ceftriaxone daily for UTI, Plan for cefdinir on discharge #MG on CKD - patient with baseline Cr of 1.5. Cr of 2.42 when last admitted. Cr of 2.05 on discharge. MG is resolved, okay to resume losartan 02/08 #HTN - blood pressure well controlled at present -Continue Amlodipine 7.5mg po daily -Continue Propranolol 20mg po BID - also uses this for tremors Resume losartan #Hyperlipidemia - chronic. 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 -Continue Eliquis 2.5mg po BID Ppx - Continue home Eliquis Dispo - continued inpatient stay for pain control, able to be discharged once has a bowel movement daughter updated at bedside 02/06 Admission and Anticipated Discharge Date Admission Date: February 05, 2025 Supervising Physician Co-Signing Physician Notes STEFAN Supervision Note: I did not personally see or examine the patient today, but I verified all mathis points of STEFAN Urbina's assessment and plan with the following exceptions/additions: None Subjective patient seen lying in bed resting in pain is about the same - reports the pain is the worst when he tries to have a bowel movement and so far has been unsuccesfful encouraged to ambulate in the [place], increase bowel regimen Review of Systems Review of Systems: All systems reviewed & are unremarkable except as noted in Subjective Physical Exam Physical Exam: General: NAD, VS as above, lying in bed appears comfortable Resp: normal respiratory effort, lungs clear to auscultation CV: RRR, no murmur, Abd: normal bowel sounds, non tender, soft Extremities: Moves all extremities, no edema Neuro: A&O x3, Skin: intact, no lesions noted Results & Data Results & Data Vital Signs (Past 12 Hours) Vital Signs Temp Pulse Resp BP Pulse Ox O2 Del Method 02/07/25 14:29 98.8 F 76 16 123/75 92 Room Air 02/07/25 07:56 97.5 F L 70 15 136/79 95 Room Air Laboratory Results BMP reviewed PG Care Time/CCT Total # of Minutes Spent Total Time Spent with Patient: Total time spent is greater than 50% in coordination of care (as documented) at patient's floor/unit and/or counseling patient: Coding Level of Care Code 53158 SUB INP/OBS CARE 2/35MIN Diagnoses Kidney stone on left side N20.0 Acute kidney injury superimposed on CKD N17.9; N18.9 HTN (hypertension) I10 Dyslipidemia E78.5
[2025-02-08 07:54] VITALS: RESP 16
[2025-02-08 07:55] VITALS: BP 132/68; PULSE 78; TEMP 98.6; O2SAT 94
[2025-02-08] MEDS: LOSARTAN POTASSIUM 50 MG TAB PO SCH (08:05)
--- NOTE | 2025-02-08 10:43 | Discharge Summary ---
Discharge Summary Date of Service February 08, 2025 Principal Dx & Hospital Course #1 = Principal Diagnosis (1) Kidney stone on left side: (2) Acute kidney injury superimposed on CKD: (3) HTN (hypertension): (4) Dyslipidemia: Plan 84yo male with recent admission for left renal stone s/p left ureteral stent placement 02/04/25 with discharge earlier on 02/05 who re-presented to the hospital in the evening for left flank pain. #Left flank pain pain likely from stent placement, left stone remains in the upper left ureter - 4mm - could be causing symptoms as well. did discuss case with urology suspect pain is related to spasms Pain control with Tylenol, as needed oxycodone. Scheduled oxybutynin continue Flomax Unfortunately cannot use Pyridium with his renal function being low Did have BM 02/08, recommending Miralax BID on discharge while on narcotics. #UTI UA with 4+ bacteria present, however likely drawn from a catheter; given leukocytosis on prior admission, not unreasonable to treat. UC neg but in presence of stent discharged on Cefdinir BID to complete course. (s/p Rocephin while inpatient) #MG on CKD patient with baseline Cr of 1.5. Cr of 2.42 when last admitted. Cr of 2.05 on discharge last admission. MG is resolved - creat back to baseline at 1.49, Losartan resumed. #HTN blood pressure well controlled at present Continue Amlodipine 7.5mg po daily Continue Propranolol 20mg po BID - also uses this for tremors Resume losartan #Hyperlipidemia - chronic. 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 Patient was recently admitted to [facility] on 02/04/25 after presenting with left flank pain. He was found to have a 7mm obstructing calculus in the left proximal ureter with mild to moderate left hydroureteronephrosis. Patient was seen by Urology and had a cystoscopy performed on 02/04/25. 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 Left ureteral stent was placed. Patient felt improved and was discharged home earlier today 02/05/25 with a prescription for Flomax. Upon returning home patient developed severe pain in the left flank and groin which prompted him to return to the ER. Acevedo remains in place - bloody urine output present. No additional complaints - specifically denies fever, chills, chest pain, cough, SOB, nausea, vomiting In the ER patient afebrile, HD stable. Did become mildly hypoxic after receiving Dilaudid. Now on 2L NC with appropriate saturations. ER Course: Dilaudid 0.5mg IV Toradol 15mg IV Discharge Exam General: NAD, VS: BP 132/68; P78; R16; T7C Resp: normal respiratory effort Extremities: Moves all extremities, no edema Neuro: A&O x3 Skin: intact, no lesions noted Discharge Plan Discharge Items Patient Disposition: Home - Self-Care Reason For Visit: LEFT FLANK PAIN Discharge Diagnosis: Left flank pain Condition on Discharge: Fair Activity: Resume your previous activity Non-emergency contact: Primary Care Provider Call non-emergency contact if: you have any medication questions and your symptoms worsen Follow-up/Referrals: Griffin Meraz [Primary Care Provider] - 02/15/25 11:05 am Diet: Regular Addtl Attending Provider Instructions: Mr. Wiggins, You were recently hospitalized for left flank pain thought to be secondary to your recent stent placement along with constipation. You have been given laxatives while inpatient and did have a bowel movement. Medications: Your medication list has been reviewed and reconciled upon discharge to ensure accuracy and continuity of care. An updated list of all your medications is included with your hospital discharge paperwork. Please review this list closely, and make note of any changes. Please continue taking 1 capful of Miralax twice daily while actively on narcotics. Please drink an adequate amount of water so that the Miralax is effective in your system. An antibiotic called Cefdinir has been sent in to your pharmacy. Please take this twice daily starting this evening, 02/08. This will be for 7 days. You may take with food to avoid GI upset. Take your medications as instructed; do not skip a dose of your medicines. Make sure all of your doctors know every medicine you are taking (including vzar-wvf-kamikmh medicines, vitamins, and supplements). Call your primary care provider before taking any new medicines (including over- the-counter medicines, vitamins, and supplements), because some of these may interact with your current medications, or may make your symptoms worse. Tell your primary care provider if you cannot afford your medications. Activity: You can do normal everyday activities as your body allows. Take rest breaks if you feel tired. Do not overexert. Stop activity if you have pain, shortness of breath or feel dizzy. Follow-up appointments: Make an appointment with your primary care physician within one week of discharge. A copy of this summary will be sent to them. Every time you see your primary care physician, or any other doctor, bring your med ication list, and a list of questions. CONTACT YOUR PRIMARY CARE PROVIDER if you experience any of the following: Shortness of breath or difficulty breathing Fevers or chills Feeling tired with normal activity or experiencing dizziness or fainting Difficulty following your treatment plan, or difficulty taking medications CALL 911 OR GO TO THE EMERGENCY DEPARTMENT if you experience any of the following: Severe abdominal pain or nausea/vomiting Severe chest pain, or chest pain that radiates (moves) to your jaw or arm Sudden, severe shortness of breath or difficulty breathing Thank you for allowing us to participate in your care. Pending Studies at Discharge: No Stand-Alone Forms: [facility] [employer], Smoking Cessation Medications and DC Order Prescriptions: New cefdinir 300 mg capsule 300 mg PO BID Qty: 14 0RF Continued amlodipine 2.5 mg tablet 2.5 mg PO DAILY Eliquis 5 mg tablet 2.5 mg PO BID propranolol 20 mg tablet 20 mg PO BID Qty: 180 2RF finasteride 5 mg tablet 5 mg PO QAM Qty: 90 3RF losartan 100 mg tablet 100 mg PO QAM Hold Instructions: Provider's Order - until you know your kidney function is back to normal nitroglycerin 0.4 mg tablet, sublingual 0.4 mg sublingual Q5M PRN (Reason: Chest Pain) Rx Instructions: do not exceed 3 doses per episode atorvastatin 40 mg tablet 40 mg PO QAM gabapentin 300 mg capsule 300 mg PO BID Qty: 180 1RF cholecalciferol (vitamin D3) 1,000 unit Tablet 1,000 unit PO QAM pyridoxine (vitamin B6) 50 mg Tablet 50 mg PO QAM multivitamin [Multiple Vitamins] Tablet 1 tab PO QAM calcium carbonate 500 mg calcium (1,250 mg) Tablet 500 mg PO QAM lidocaine 5 % adhesive patch,medicated 1 patch TOP DAILY PRN (Reason: pain) Qty: 15 0RF Rx Instructions: leave on most painful area for 12 hrs omeprazole 40 mg capsule,delayed release(DR/EC) 40 mg PO QAM diclofenac sodium 1 % Gel 1 ea TOPICAL QID PRN (Reason: Pain) oxycodone 5 mg tablet 5 mg PO Q6H PRN (Reason: pain) Qty: 15 0RF acetaminophen [Tylenol 8 Hour] 650 mg tablet extended release 650 mg PO Q8H PRN (Reason: fever or pain) Qty: 30 0RF amlodipine 5 mg tablet 5 mg PO DAILY tamsulosin 0.4 mg Capsule 0.4 mg PO QAM Qty: 30 0RF oxybutynin chloride 5 mg tablet 5 mg PO BID PRN (Reason: ureteral spasms) Qty: 20 0RF Discharge Orders: Discharge Order (Routine); Ordered 02/08/25 Ordered By: Deloris Martins/Other Patient Handouts: Understanding Kidney Stones, Taking Opioid Medicine Admission Data Admit Date/Time: 02/05/25 19:38 Attending Provider: Adrienne Clark Admit Provider: Sarah Cardoso Primary Care Provider: Griffin Meraz Other Providers: Sarah Cardoso; [facility] Other Interventions: Discharge Summary Assessment (RN) Last Done: 02/08/25 10:59 Hospital Stay Data Consultations 02/05/25 19:27 ED Decision to Admit Stat Diagnostic Imagining Performed 02/05/25 17:26 CT abd pelvis wo con Stat Pending Results Patient Have Any Pending Studies at Discharge: No Discharge Instructions Given to Patient (Per Discharging Provider) Mr. Wiggins, You were recently hospitalized for left flank pain thought to be secondary to your recent stent placement along with constipation. You have been given laxati ves while inpatient and did have a bowel movement. Medications: Your medication list has been reviewed and reconciled upon discharge to ensure accuracy and continuity of care. An updated list of all your medications is included with your hospital discharge paperwork. Please review this list closely, and make note of any changes. Please continue taking 1 capful of Miralax twice daily while actively on narcotics. Please drink an adequate amount of water so that the Miralax is effective in your system. An antibiotic called Cefdinir has been sent in to your pharmacy. Please take this twice daily starting this evening, 02/08. This will be for 7 days. You may take with food to avoid GI upset. Take your medications as instructed; do not skip a dose of your medicines. Make sure all of your doctors know every medicine you are taking (including ryxg-kvi-lvfhadk medicines, vitamins, and supplements). Call your primary care provider before taking any new medicines (including over- the-counter medicines, vitamins, and supplements), because some of these may interact with your current medications, or may make your symptoms worse. Tell your primary care provider if you cannot afford your medications. Activity: You can do normal everyday activities as your body allows. Take rest breaks if you feel tired. Do not overexert. Stop activity if you have pain, shortness of breath or feel dizzy. Follow-up appointments: Make an appointment with your primary care physician within one week of discharge. A copy of this summary will be sent to them. Every time you see your primary care physician, or any other doctor, bring your medication list, and a list of questions. CONTACT YOUR PRIMARY CARE PROVIDER if you experience any of the following: Shortness of breath or difficulty breathing Fevers or chills Feeling tired with normal activity or experiencing dizziness or fainting Difficulty following your treatment plan, or difficulty taking medications CALL 911 OR GO TO THE EMERGENCY DEPARTMENT if you experience any of the following: Severe abdominal pain or nausea/vomiting Severe chest pain, or chest pain that radiates (moves) to your jaw or arm Sudden, severe shortness of breath or difficulty breathing Thank you for allowing us to participate in your care. Supervising Physician Co-Signing Physician Notes PA Supervision Note: I did not personally see or examine the patient today, but I verified all mathis points of STEFAN Zhu's assessment and plan with the following exceptions/a dditions: None Total Time Total Time Spent Total Time Spent (In Minutes): 45 Total Time Includes: Examination of the Patient, Discharge Planning and Medication Reconciliation Coding Level of Care Code 45249 INP/OBS DISCH >30 MIN Diagnoses Kidney stone on left side N20.0 Acute kidney injury superimposed on CKD N17.9; N18.9 HTN (hypertension) I10 Dyslipidemia E78.5
== END 2025-02-08 13:06 | disposition home or self-care (01) ==
LOC: ED 16:20 → 3W 16:20 → SUATTDRO 19:38 → 3W 20:28